=== PATIENT | male | born 1945 | race Caucasian/White ===

== ENCOUNTER 2017-06-30 14:28 | Inpatient (IN) | payer MEDICARE, OTHER, BC ==
[~2017-06-30 14:28] MED LIST: zolPIDEM TARTRATE 5 MG TAB PO
[2017-06-30] MEDS ORDERED: GLUCAGON FOR INJ 1 MG VIAL (J1610) SC (14:30)
[2017-06-30] MEDS ORDERED: NITROGLYCERIN 0.4 MG SUBL TABLET SL (14:30)
[2017-06-30] MEDS ORDERED: DEXTROSE 50% 50 ML SYRINGE IV (14:30)
[2017-06-30] MEDS ORDERED: GLUCOSE 4 GM CHEW TABLET PO (14:30)
[2017-06-30 15:16] LABS: BASO % 0.3 % (0.0-1.0); EOS # 0.2 10^3/uL (0.0-0.50); EOS % 1.9 % (0.0-3.0); HEMATOCRIT 27.2 % (42.0-52.0); HEMOGLOBIN 7.7 g/dl (14.0-18.0); IMMATURE GRANULOCYTE % 0.3 % (0-0); LYMPH # 0.4 10^3/uL (1.5-4.5); LYMPH % 4.9 % (24.0-44.0); MEAN CORPUSCULAR HEMOGLOBIN 22.4 pg (27.0-33.0); MEAN CORPUSCULAR HGB CONC 28.3 g/dl (32.0-36.5); MEAN CORPUSCULAR VOLUME 79.1 fl (80.0-96.0); MONO # 0.7 10^3/uL (0.0-0.8); MONO % 8.3 % (0.0-5.0); NEUTROPHILS # 7.3 10^3/uL (1.8-7.7); NEUTROPHILS % 84.3 % (36.0-66.0); PLATELET COUNT, AUTOMATED 202 10^3/uL (150-450); RED BLOOD COUNT 3.44 10^6/uL (4.30-6.10); RED CELL DISTRIBUTION WIDTH 17.7 % (11.5-14.5); WHITE BLOOD COUNT 8.6 10^3/uL (4.0-10.0)
[2017-06-30 15:45] LABS: ALBUMIN 3.4 GM/DL (3.2-5.2); ALKALINE PHOSPHATASE 140 U/L (45-117); ALT/SGPT 22 U/L (12-78); ANION GAP 7 MEQ/L (8-16); AST/SGOT 7 U/L (7-37); BILIRUBIN,TOTAL 0.3 MG/DL (0.2-1.0); BLOOD UREA NITROGEN 79 MG/DL (7-18); CALCIUM LEVEL 8.4 MG/DL (8.8-10.2); CARBON DIOXIDE LEVEL 19 MEQ/L (21-32); CHLORIDE LEVEL 118 MEQ/L (98-107); CREATININE FOR GFR 2.15 MG/DL (0.70-1.30); GLOMERULAR FILTRATION RATE 32.3 (>42); GLUCOSE, FASTING 116 MG/DL (70-100); MAGNESIUM LEVEL 2.4 MG/DL (1.8-2.4); SODIUM LEVEL 144 MEQ/L (136-145); TOTAL PROTEIN 6.8 GM/DL (6.4-8.2); TROPONIN I < 0.02 NG/ML (< 0.10)
[2017-06-30 15:54] LABS: INR 3.35; PROTHROMBIN TIME 35.6 SECONDS (12.4-14.5)
[2017-06-30 15:58] LABS: POTASSIUM SERUM 5.2 MEQ/L (3.5-5.1)
[2017-06-30] MEDS: ISOSORBIDE DIN. (ISORDIL) 20 MG TAB PO ×2 (16:00→21:55)
[2017-06-30] MEDS: **hydrALAZINE** 50 MG TAB PO ×2 (16:00→21:55)
[2017-06-30] MEDS: HumaLOG INSULIN (NovoLOG) PER UNIT SC ×2 (17:30→21:00)
[2017-06-30 17:32] LABS: BEDSIDE GLUCOSE 119 MG/DL (83-110)
[2017-06-30] MEDS: FUROSEMIDE 100 MG/10 ML VIAL (J1940) IV ×2 (18:42→23:34)
[2017-06-30] MEDS: PANTOPRAZOLE 40MG TAB (PROTONIX) PO (18:42)
[2017-06-30 19:11] LABS: APPEARANCE, URINE HAZY (CLEAR); BACTERIA, URINE AUTO NEGATIVE (NEGATIVE); BILIRUBIN, URINE AUTO NEGATIVE (NEGATIVE); BLOOD, URINE BLOOD 1+ (NEGATIVE); COLOR, URINE YELLOW (YELLOW); GLUCOSE, URINE (UA) AUTO NEGATIVE (NEGATIVE); KETONE, URINE AUTO NEGATIVE (NEGATIVE); LEUKOCYTE ESTERASE, URINE AUTO NEGATIVE (NEGATIVE); MUCUS, URINE SMALL (NEGATIVE); NITRITE, URINE AUTO NEGATIVE (NEGATIVE); PROTEIN, URINE AUTO NEGATIVE (NEGATIVE); RBC, URINE AUTO 12 /HPF (0-3); SPECIFIC GRAVITY URINE AUTO 1.012 (1.002-1.035); SQUAMOUS EPITHELIAL CELL UR AU 0 /HPF (0-6); UROBILINOGEN, URINE AUTO 0.2 mg/dL (0.0-2.0); WBC, URINE AUTO 1 /HPF (0-3)
[2017-06-30] MEDS: DOBUTamine HCL 500,000 MCG in APPROPRIATE DILUENT 1 EA IV (19:58)
[2017-06-30 20:34] LABS: BEDSIDE GLUCOSE 165 MG/DL (83-110)
[2017-06-30] MEDS: CARVedilol 12.5 MG TAB PO (21:55)
[2017-06-30] MEDS: SENOKOT S TAB PO (21:55)
[2017-06-30] MEDS: EUCERIN 120GM CREAM TOP (23:09)
[2017-06-30] MEDS: NYSTATIN 100,000 UNITS/GM TOPICAL PWD 15 GM TOP (23:10)
[2017-06-30] MEDS: DIAPER RELIEF PASTE (DESITIN) 60GM TOP (23:10)
[2017-07-01] MEDS: ACETAMINOPHEN TAB 650MG DOSE (2X325MG) PO ×3 (00:36→20:46)
[2017-07-01 05:06] LABS: HEMATOCRIT 24.1 % (42.0-52.0); MEAN CORPUSCULAR HEMOGLOBIN 22.3 pg (27.0-33.0); MEAN CORPUSCULAR VOLUME 76.8 fl (80.0-96.0); PLATELET COUNT, AUTOMATED 185 10^3/uL (150-450); RED BLOOD COUNT 3.14 10^6/uL (4.30-6.10); RED CELL DISTRIBUTION WIDTH 17.7 % (11.5-14.5); WHITE BLOOD COUNT 6.9 10^3/uL (4.0-10.0)
[2017-07-01 05:17] LABS: INR 3.42; PROTHROMBIN TIME 36.1 SECONDS (12.4-14.5)
[2017-07-01 05:29] LABS: ALBUMIN 2.9 GM/DL (3.2-5.2); ANION GAP 8 MEQ/L (8-16); BLOOD UREA NITROGEN 79 MG/DL (7-18); CALCIUM LEVEL 8.4 MG/DL (8.8-10.2); CARBON DIOXIDE LEVEL 19 MEQ/L (21-32); CHLORIDE LEVEL 119 MEQ/L (98-107); CREATININE FOR GFR 2.06 MG/DL (0.70-1.30); GLUCOSE, FASTING 102 MG/DL (70-100); PHOSPHORUS LEVEL 3.6 MG/DL (2.5-4.9); POTASSIUM SERUM 4.5 MEQ/L (3.5-5.1); SODIUM LEVEL 146 MEQ/L (136-145)
[2017-07-01] MEDS: DIAPER RELIEF PASTE (DESITIN) 60GM TOP (05:59)
[2017-07-01 06:22] LABS: MAGNESIUM LEVEL 2.4 MG/DL (1.8-2.4)
[2017-07-01] MEDS: FUROSEMIDE 100 MG/10 ML VIAL (J1940) IV ×4 (06:26→23:57)
[2017-07-01] MEDS: HumaLOG INSULIN (NovoLOG) PER UNIT SC ×4 (07:30→20:40)
[2017-07-01] MEDS: SENOKOT S TAB PO ×2 (09:00→20:47)
[2017-07-01] MEDS: FEBUXOSTAT 40 MG TABLET (ULORIC) PO (09:20)
[2017-07-01] MEDS: CARVedilol 12.5 MG TAB PO ×2 (09:21→20:47)
[2017-07-01] MEDS: ASPIRIN 81 MG ENTERIC TAB PO (09:21)
[2017-07-01] MEDS: ISOSORBIDE DIN. (ISORDIL) 20 MG TAB PO ×3 (09:21→20:46)
[2017-07-01] MEDS: CALCITRIOL 0.25 MCG CAP (S0169) PO (09:21)
[2017-07-01] MEDS: **hydrALAZINE** 50 MG TAB PO ×3 (09:22→20:45)
[2017-07-01] MEDS: MULTIVITAMINS/MINERALS THERAP 1 TAB PO (09:22)
[2017-07-01] MEDS: SPIRONOLACTONE 25 MG TAB PO (09:22)
[2017-07-01] MEDS: PANTOPRAZOLE 40MG TAB (PROTONIX) PO (09:22)
[2017-07-01] MEDS: NYSTATIN 100,000 UNITS/GM TOPICAL PWD 15 GM TOP ×2 (09:23→20:47)
[2017-07-01] MEDS: EUCERIN 120GM CREAM TOP ×2 (09:24→20:48)
[2017-07-01] MEDS: ATORVASTATIN 20 MG TAB PO (09:27)
[2017-07-01 11:52] LABS: BEDSIDE GLUCOSE 173 MG/DL (83-110)
[2017-07-01] MEDS ORDERED: SLF 3 ML SYR IV (15:15)
[2017-07-01 17:53] LABS: IMMEDIATE SPIN CROSSMATCH 1 2
[2017-07-01 18:33] LABS: BEDSIDE GLUCOSE 216 MG/DL (83-110)
[2017-07-01] MEDS: SLF 3 ML SYR IV (20:48)
[2017-07-01 21:00] LABS: BEDSIDE GLUCOSE 213 MG/DL (83-110)
[2017-07-02 04:38] LABS: HEMATOCRIT 27.6 % (42.0-52.0); HEMOGLOBIN 8.3 g/dl (14.0-18.0); MEAN CORPUSCULAR HEMOGLOBIN 23.7 pg (27.0-33.0); MEAN CORPUSCULAR HGB CONC 30.1 g/dl (32.0-36.5); MEAN CORPUSCULAR VOLUME 78.9 fl (80.0-96.0); PLATELET COUNT, AUTOMATED 162 10^3/uL (150-450); RED CELL DISTRIBUTION WIDTH 17.3 % (11.5-14.5); WHITE BLOOD COUNT 5.8 10^3/uL (4.0-10.0)
[2017-07-02 04:46] LABS: INR 3.16; PROTHROMBIN TIME 33.9 SECONDS (12.4-14.5)
[2017-07-02 04:56] LABS: ALBUMIN 2.8 GM/DL (3.2-5.2); ANION GAP 8 MEQ/L (8-16); BLOOD UREA NITROGEN 88 MG/DL (7-18); CALCIUM LEVEL 8.6 MG/DL (8.8-10.2); CARBON DIOXIDE LEVEL 22 MEQ/L (21-32); CHLORIDE LEVEL 114 MEQ/L (98-107); CREATININE FOR GFR 2.43 MG/DL (0.70-1.30); GLOMERULAR FILTRATION RATE 28.1 (>42); GLUCOSE, FASTING 184 MG/DL (70-100); PHOSPHORUS LEVEL 4.3 MG/DL (2.5-4.9); POTASSIUM SERUM 4.3 MEQ/L (3.5-5.1); SODIUM LEVEL 144 MEQ/L (136-145)
[2017-07-02] MEDS: FUROSEMIDE 100 MG/10 ML VIAL (J1940) IV ×3 (05:52→17:26)
[2017-07-02] MEDS: SLF 3 ML SYR IV ×3 (05:53→20:36)
[2017-07-02 07:24] LABS: BEDSIDE GLUCOSE 170 MG/DL (83-110)
[2017-07-02] MEDS: FEBUXOSTAT 40 MG TABLET (ULORIC) PO (09:20)
[2017-07-02] MEDS: HumaLOG INSULIN (NovoLOG) PER UNIT SC ×4 (09:20→20:35)
[2017-07-02] MEDS: CARVedilol 12.5 MG TAB PO ×2 (09:21→20:34)
[2017-07-02] MEDS: ATORVASTATIN 20 MG TAB PO (09:21)
[2017-07-02] MEDS: **hydrALAZINE** 50 MG TAB PO ×3 (09:21→20:34)
[2017-07-02] MEDS: ISOSORBIDE DIN. (ISORDIL) 20 MG TAB PO ×3 (09:21→20:34)
[2017-07-02] MEDS: ASPIRIN 81 MG ENTERIC TAB PO (09:21)
[2017-07-02] MEDS: NYSTATIN 100,000 UNITS/GM TOPICAL PWD 15 GM TOP ×2 (09:22→20:36)
[2017-07-02] MEDS: MULTIVITAMINS/MINERALS THERAP 1 TAB PO (09:22)
[2017-07-02] MEDS: SPIRONOLACTONE 25 MG TAB PO (09:22)
[2017-07-02] MEDS: PANTOPRAZOLE 40MG TAB (PROTONIX) PO (09:22)
[2017-07-02] MEDS: SENOKOT S TAB PO ×2 (09:22→20:34)
[2017-07-02] MEDS: EUCERIN 120GM CREAM TOP ×2 (09:23→20:35)
[2017-07-02] MEDS: DIAPER RELIEF PASTE (DESITIN) 60GM TOP (09:23)
[2017-07-02 12:19] LABS: BEDSIDE GLUCOSE 267 MG/DL (83-110)
[2017-07-02] MEDS: ACETAMINOPHEN TAB 650MG DOSE (2X325MG) PO (14:23)
[2017-07-02 17:16] LABS: BEDSIDE GLUCOSE 219 MG/DL (83-110)
[2017-07-02 21:28] LABS: BEDSIDE GLUCOSE 188 MG/DL (83-110)
[2017-07-03] MEDS: FUROSEMIDE 100 MG/10 ML VIAL (J1940) IV ×4 (00:10→17:49)
[2017-07-03] MEDS: ACETAMINOPHEN TAB 650MG DOSE (2X325MG) PO (00:11)
[2017-07-03] MEDS: SLF 3 ML SYR IV ×3 (05:07→22:00)
[2017-07-03 05:19] LABS: HEMATOCRIT 28.3 % (42.0-52.0); HEMOGLOBIN 8.5 g/dl (14.0-18.0); MEAN CORPUSCULAR HEMOGLOBIN 23.5 pg (27.0-33.0); MEAN CORPUSCULAR VOLUME 78.4 fl (80.0-96.0); PLATELET COUNT, AUTOMATED 163 10^3/uL (150-450); RED BLOOD COUNT 3.61 10^6/uL (4.30-6.10); RED CELL DISTRIBUTION WIDTH 17.2 % (11.5-14.5); WHITE BLOOD COUNT 5.9 10^3/uL (4.0-10.0)
[2017-07-03 05:36] LABS: ALBUMIN 2.9 GM/DL (3.2-5.2); ANION GAP 8 MEQ/L (8-16); BLOOD UREA NITROGEN 86 MG/DL (7-18); CALCIUM LEVEL 8.6 MG/DL (8.8-10.2); CARBON DIOXIDE LEVEL 25 MEQ/L (21-32); CHLORIDE LEVEL 112 MEQ/L (98-107); CREATININE FOR GFR 2.33 MG/DL (0.70-1.30); GLOMERULAR FILTRATION RATE 29.5 (>42); GLUCOSE, FASTING 198 MG/DL (70-100); PHOSPHORUS LEVEL 3.8 MG/DL (2.5-4.9); SODIUM LEVEL 145 MEQ/L (136-145)
[2017-07-03 05:41] LABS: INR 2.52; PROTHROMBIN TIME 28.2 SECONDS (12.4-14.5)
[2017-07-03] MEDS: HumaLOG INSULIN (NovoLOG) PER UNIT SC ×4 (09:00→21:00)
[2017-07-03] MEDS: NYSTATIN 100,000 UNITS/GM TOPICAL PWD 15 GM TOP ×2 (09:00→21:59)
[2017-07-03] MEDS: FEBUXOSTAT 40 MG TABLET (ULORIC) PO (09:03)
[2017-07-03] MEDS: PANTOPRAZOLE 40MG TAB (PROTONIX) PO (09:03)
[2017-07-03] MEDS: ISOSORBIDE DIN. (ISORDIL) 20 MG TAB PO ×3 (09:03→21:58)
[2017-07-03] MEDS: CARVedilol 12.5 MG TAB PO ×2 (09:03→21:58)
[2017-07-03] MEDS: ATORVASTATIN 20 MG TAB PO (09:04)
[2017-07-03] MEDS: ASPIRIN 81 MG ENTERIC TAB PO (09:04)
[2017-07-03] MEDS: SENOKOT S TAB PO ×2 (09:04→21:58)
[2017-07-03] MEDS: **hydrALAZINE** 50 MG TAB PO ×3 (09:04→21:57)
[2017-07-03] MEDS: SPIRONOLACTONE 25 MG TAB PO (09:04)
[2017-07-03] MEDS: MULTIVITAMINS/MINERALS THERAP 1 TAB PO (09:04)
[2017-07-03] MEDS: EUCERIN 120GM CREAM TOP ×2 (09:05→21:59)
[2017-07-03 12:34] LABS: BEDSIDE GLUCOSE 247 MG/DL (83-110)
[2017-07-03 13:03] LABS: IRON (FE) 28 UG/DL (65-175); PERCENT SATURATION 11.8 % (19.7-50.0); TOTAL IRON BINDING CAPACITY 238 UG/DL (250-450)
[2017-07-03] MEDS: WARFARIN SOD 2.5 MG TAB PO (17:48)
[2017-07-03 17:56] LABS: BEDSIDE GLUCOSE 213 MG/DL (83-110)
[2017-07-03 21:47] LABS: BEDSIDE GLUCOSE 219 MG/DL (83-110)
[2017-07-03] MEDS: LEVEMIR (INSULIN DETEMIR) 1 UNITS/0.01ML SC (21:59)
[2017-07-04] MEDS: ACETAMINOPHEN TAB 650MG DOSE (2X325MG) PO (00:49)
[2017-07-04 05:30] LABS: HEMATOCRIT 30.4 % (42.0-52.0); HEMOGLOBIN 9.1 g/dl (14.0-18.0); MEAN CORPUSCULAR HEMOGLOBIN 23.2 pg (27.0-33.0); MEAN CORPUSCULAR HGB CONC 29.9 g/dl (32.0-36.5); MEAN CORPUSCULAR VOLUME 77.6 fl (80.0-96.0); PLATELET COUNT, AUTOMATED 194 10^3/uL (150-450); RED BLOOD COUNT 3.92 10^6/uL (4.30-6.10); RED CELL DISTRIBUTION WIDTH 17.5 % (11.5-14.5); WHITE BLOOD COUNT 7.1 10^3/uL (4.0-10.0)
[2017-07-04 05:41] LABS: INR 1.96
[2017-07-04 05:58] LABS: ANION GAP 7 MEQ/L (8-16); BLOOD UREA NITROGEN 90 MG/DL (7-18); CALCIUM LEVEL 8.6 MG/DL (8.8-10.2); CARBON DIOXIDE LEVEL 28 MEQ/L (21-32); CHLORIDE LEVEL 110 MEQ/L (98-107); CREATININE FOR GFR 2.28 MG/DL (0.70-1.30); GLOMERULAR FILTRATION RATE 30.2 (>42); GLUCOSE, FASTING 179 MG/DL (70-100); PHOSPHORUS LEVEL 3.5 MG/DL (2.5-4.9); SODIUM LEVEL 145 MEQ/L (136-145)
[2017-07-04] MEDS: SLF 3 ML SYR IV ×2 (06:36→12:51)
[2017-07-04] MEDS: FUROSEMIDE 100 MG/10 ML VIAL (J1940) IV ×4 (06:36→17:11)
[2017-07-04] MEDS: FEBUXOSTAT 40 MG TABLET (ULORIC) PO (09:12)
[2017-07-04] MEDS: CARVedilol 12.5 MG TAB PO ×2 (09:13→20:32)
[2017-07-04] MEDS: **hydrALAZINE** 50 MG TAB PO ×2 (09:15→20:33)
[2017-07-04] MEDS: ISOSORBIDE DIN. (ISORDIL) 20 MG TAB PO ×3 (09:16→20:33)
[2017-07-04] MEDS: CALCITRIOL 0.25 MCG CAP (S0169) PO (09:16)
[2017-07-04] MEDS: PANTOPRAZOLE 40MG TAB (PROTONIX) PO (09:16)
[2017-07-04] MEDS: MULTIVITAMINS/MINERALS THERAP 1 TAB PO (09:17)
[2017-07-04] MEDS: SPIRONOLACTONE 25 MG TAB PO (09:17)
[2017-07-04] MEDS: ASPIRIN 81 MG ENTERIC TAB PO (09:17)
[2017-07-04] MEDS: ATORVASTATIN 20 MG TAB PO (09:17)
[2017-07-04] MEDS: SENOKOT S TAB PO ×2 (09:17→20:32)
[2017-07-04] MEDS: LEVEMIR (INSULIN DETEMIR) 1 UNITS/0.01ML SC ×2 (09:18→20:31)
[2017-07-04] MEDS: HumaLOG INSULIN (NovoLOG) PER UNIT SC ×4 (09:19→20:31)
[2017-07-04] MEDS: DARBEPOETIN 100 MCG/0.5 ML *NON-DIALYSIS* SYRINGE (J0881) SC (09:20)
[2017-07-04] MEDS: NYSTATIN 100,000 UNITS/GM TOPICAL PWD 15 GM TOP ×2 (09:21→20:34)
[2017-07-04] MEDS: EUCERIN 120GM CREAM TOP ×2 (09:22→20:35)
[2017-07-04] MEDS ORDERED: IRON SUCROSE 100MG 5ML VIAL (J1756 PER 1MG) IV (09:30)
[2017-07-04 11:50] LABS: BEDSIDE GLUCOSE 241 MG/DL (83-110)
[2017-07-04] MEDS: IRON SUCROSE 200 MG in NS 250 ML IV (12:51)
[2017-07-04] MEDS: DIAPER RELIEF PASTE (DESITIN) 60GM TOP (13:32)
[2017-07-04 16:54] LABS: BEDSIDE GLUCOSE 267 MG/DL (83-110)
[2017-07-04] MEDS: WARFARIN SOD 2.5 MG TAB PO (17:05)
[2017-07-04 20:38] LABS: BEDSIDE GLUCOSE 342 MG/DL (83-110)
[2017-07-05 03:31] LABS: HEMOGLOBIN 9.6 g/dl (14.0-18.0); MEAN CORPUSCULAR HEMOGLOBIN 23.8 pg (27.0-33.0); MEAN CORPUSCULAR VOLUME 79.4 fl (80.0-96.0); PLATELET COUNT, AUTOMATED 203 10^3/uL (150-450); RED BLOOD COUNT 4.03 10^6/uL (4.30-6.10); RED CELL DISTRIBUTION WIDTH 17.3 % (11.5-14.5); WHITE BLOOD COUNT 7.8 10^3/uL (4.0-10.0)
[2017-07-05 03:42] LABS: INR 1.78; PROTHROMBIN TIME 21.3 SECONDS (12.4-14.5)
[2017-07-05 03:47] LABS: ALBUMIN 3.2 GM/DL (3.2-5.2); ANION GAP 8 MEQ/L (8-16); BLOOD UREA NITROGEN 100 MG/DL (7-18); CALCIUM LEVEL 8.5 MG/DL (8.8-10.2); CARBON DIOXIDE LEVEL 27 MEQ/L (21-32); CHLORIDE LEVEL 108 MEQ/L (98-107); CREATININE FOR GFR 2.43 MG/DL (0.70-1.30); GLOMERULAR FILTRATION RATE 28.1 (>42); GLUCOSE, FASTING 166 MG/DL (70-100); PHOSPHORUS LEVEL 4.1 MG/DL (2.5-4.9); POTASSIUM SERUM 3.9 MEQ/L (3.5-5.1); SODIUM LEVEL 143 MEQ/L (136-145)
[2017-07-05] MEDS: HumaLOG INSULIN (NovoLOG) PER UNIT SC ×4 (09:34→20:02)
[2017-07-05] MEDS: ASPIRIN 81 MG ENTERIC TAB PO (09:35)
[2017-07-05] MEDS: TORSEMIDE 20 MG TAB PO (09:35)
[2017-07-05] MEDS: ATORVASTATIN 20 MG TAB PO (09:35)
[2017-07-05] MEDS: ISOSORBIDE DIN. (ISORDIL) 20 MG TAB PO ×3 (09:35→20:44)
[2017-07-05] MEDS: SENOKOT S TAB PO ×3 (09:36→20:44)
[2017-07-05] MEDS: MULTIVITAMINS/MINERALS THERAP 1 TAB PO (09:36)
[2017-07-05] MEDS: SPIRONOLACTONE 25 MG TAB PO (09:36)
[2017-07-05] MEDS: **hydrALAZINE** 50 MG TAB PO ×2 (09:36→20:44)
[2017-07-05] MEDS: PANTOPRAZOLE 40MG TAB (PROTONIX) PO (09:36)
[2017-07-05] MEDS: CARVedilol 12.5 MG TAB PO ×2 (09:36→20:44)
[2017-07-05] MEDS: FEBUXOSTAT 40 MG TABLET (ULORIC) PO (09:37)
[2017-07-05] MEDS: EUCERIN 120GM CREAM TOP ×2 (09:37→20:45)
[2017-07-05] MEDS: LEVEMIR (INSULIN DETEMIR) 1 UNITS/0.01ML SC ×2 (09:38→20:43)
[2017-07-05] MEDS: NYSTATIN 100,000 UNITS/GM TOPICAL PWD 15 GM TOP ×2 (09:38→20:46)
[2017-07-05 11:50] LABS: BEDSIDE GLUCOSE 270 MG/DL (83-110)
[2017-07-05] MEDS: WARFARIN SOD 2.5 MG TAB PO (16:43)
[2017-07-05 17:01] LABS: BEDSIDE GLUCOSE 235 MG/DL (83-110)
[2017-07-05 20:07] LABS: BEDSIDE GLUCOSE 218 MG/DL (83-110)
[2017-07-06 05:24] LABS: HEMATOCRIT 32.9 % (42.0-52.0); HEMOGLOBIN 9.8 g/dl (14.0-18.0); MEAN CORPUSCULAR HEMOGLOBIN 23.3 pg (27.0-33.0); MEAN CORPUSCULAR HGB CONC 29.8 g/dl (32.0-36.5); MEAN CORPUSCULAR VOLUME 78.3 fl (80.0-96.0); PLATELET COUNT, AUTOMATED 242 10^3/uL (150-450); RED CELL DISTRIBUTION WIDTH 17.5 % (11.5-14.5); WHITE BLOOD COUNT 6.9 10^3/uL (4.0-10.0)
[2017-07-06 05:33] LABS: INR 1.78; PROTHROMBIN TIME 21.2 SECONDS (12.4-14.5)
[2017-07-06 05:51] LABS: ALBUMIN 3.2 GM/DL (3.2-5.2); ANION GAP 9 MEQ/L (8-16); BLOOD UREA NITROGEN 119 MG/DL (7-18); CALCIUM LEVEL 8.8 MG/DL (8.8-10.2); CARBON DIOXIDE LEVEL 27 MEQ/L (21-32); CHLORIDE LEVEL 107 MEQ/L (98-107); CREATININE FOR GFR 3.03 MG/DL (0.70-1.30); GLOMERULAR FILTRATION RATE 21.8 (>42); GLUCOSE, FASTING 109 MG/DL (70-100); PHOSPHORUS LEVEL 4.3 MG/DL (2.5-4.9); POTASSIUM SERUM 3.9 MEQ/L (3.5-5.1); SODIUM LEVEL 143 MEQ/L (136-145)
[2017-07-06] MEDS: SENOKOT S TAB PO ×2 (07:46→21:43)
[2017-07-06] MEDS: HumaLOG INSULIN (NovoLOG) PER UNIT SC ×4 (09:07→21:00)
[2017-07-06] MEDS: ISOSORBIDE DIN. (ISORDIL) 20 MG TAB PO ×3 (09:59→21:40)
[2017-07-06] MEDS: FEBUXOSTAT 40 MG TABLET (ULORIC) PO (09:59)
[2017-07-06] MEDS: LEVEMIR (INSULIN DETEMIR) 1 UNITS/0.01ML SC ×2 (09:59→21:39)
[2017-07-06] MEDS: CARVedilol 12.5 MG TAB PO ×2 (10:00→21:41)
[2017-07-06] MEDS: TORSEMIDE 20 MG TAB PO (10:00)
[2017-07-06] MEDS: ATORVASTATIN 20 MG TAB PO (10:00)
[2017-07-06] MEDS: CALCITRIOL 0.25 MCG CAP (S0169) PO (10:00)
[2017-07-06] MEDS: ASPIRIN 81 MG ENTERIC TAB PO (10:01)
[2017-07-06] MEDS: MULTIVITAMINS/MINERALS THERAP 1 TAB PO (10:01)
[2017-07-06] MEDS: **hydrALAZINE** 50 MG TAB PO ×2 (10:01→21:40)
[2017-07-06] MEDS: PANTOPRAZOLE 40MG TAB (PROTONIX) PO (10:01)
[2017-07-06] MEDS: SPIRONOLACTONE 25 MG TAB PO (10:02)
[2017-07-06] MEDS: NYSTATIN 100,000 UNITS/GM TOPICAL PWD 15 GM TOP ×2 (10:23→21:44)
[2017-07-06 12:53] LABS: BEDSIDE GLUCOSE 214 MG/DL (83-110)
[2017-07-06] MEDS: EUCERIN 120GM CREAM TOP ×2 (13:05→21:44)
[2017-07-06] MEDS ORDERED: IRON SUCROSE 100MG 5ML VIAL (J1756 PER 1MG) IV (15:30)
[2017-07-06] MEDS: IRON SUCROSE 200 MG in NS 250 ML IV (15:45)
[2017-07-06 16:54] LABS: BEDSIDE GLUCOSE 184 MG/DL (83-110)
[2017-07-06] MEDS: WARFARIN SOD 2.5 MG TAB PO (17:09)
[2017-07-06 22:07] LABS: BEDSIDE GLUCOSE 221 MG/DL (83-110)
[2017-07-07] MEDS: ACETAMINOPHEN TAB 650MG DOSE (2X325MG) PO ×2 (01:51→09:29)
[2017-07-07 05:31] LABS: HEMATOCRIT 36.2 % (42.0-52.0); HEMOGLOBIN 10.8 g/dl (14.0-18.0); MEAN CORPUSCULAR HEMOGLOBIN 23.7 pg (27.0-33.0); MEAN CORPUSCULAR HGB CONC 29.8 g/dl (32.0-36.5); MEAN CORPUSCULAR VOLUME 79.4 fl (80.0-96.0); PLATELET COUNT, AUTOMATED 254 10^3/uL (150-450); RED BLOOD COUNT 4.56 10^6/uL (4.30-6.10); RED CELL DISTRIBUTION WIDTH 17.9 % (11.5-14.5); WHITE BLOOD COUNT 7.4 10^3/uL (4.0-10.0)
[2017-07-07 05:39] LABS: INR 1.64; PROTHROMBIN TIME 19.9 SECONDS (12.4-14.5)
[2017-07-07 05:49] LABS: ALBUMIN 3.5 GM/DL (3.2-5.2); ANION GAP 8 MEQ/L (8-16); BLOOD UREA NITROGEN 123 MG/DL (7-18); CALCIUM LEVEL 9.1 MG/DL (8.8-10.2); CARBON DIOXIDE LEVEL 26 MEQ/L (21-32); CHLORIDE LEVEL 107 MEQ/L (98-107); CREATININE FOR GFR 3.07 MG/DL (0.70-1.30); GLOMERULAR FILTRATION RATE 21.4 (>42); GLUCOSE, FASTING 138 MG/DL (70-100); PHOSPHORUS LEVEL 4.7 MG/DL (2.5-4.9); POTASSIUM SERUM 4.3 MEQ/L (3.5-5.1); SODIUM LEVEL 141 MEQ/L (136-145)
[2017-07-07] MEDS: CARVedilol 12.5 MG TAB PO ×2 (09:29→21:34)
[2017-07-07] MEDS: HumaLOG INSULIN (NovoLOG) PER UNIT SC ×4 (09:29→20:37)
[2017-07-07] MEDS: **hydrALAZINE** 50 MG TAB PO ×2 (09:30→21:33)
[2017-07-07] MEDS: ATORVASTATIN 20 MG TAB PO (09:30)
[2017-07-07] MEDS: ISOSORBIDE DIN. (ISORDIL) 20 MG TAB PO ×3 (09:30→21:35)
[2017-07-07] MEDS: ASPIRIN 81 MG ENTERIC TAB PO (09:30)
[2017-07-07] MEDS: PANTOPRAZOLE 40MG TAB (PROTONIX) PO (09:31)
[2017-07-07] MEDS: MULTIVITAMINS/MINERALS THERAP 1 TAB PO (09:31)
[2017-07-07] MEDS: SENOKOT S TAB PO ×2 (09:31→21:00)
[2017-07-07] MEDS: NYSTATIN 100,000 UNITS/GM TOPICAL PWD 15 GM TOP ×2 (09:32→21:36)
[2017-07-07] MEDS: FEBUXOSTAT 40 MG TABLET (ULORIC) PO (09:32)
[2017-07-07] MEDS: EUCERIN 120GM CREAM TOP ×2 (09:32→21:36)
[2017-07-07] MEDS: LEVEMIR (INSULIN DETEMIR) 1 UNITS/0.01ML SC ×2 (09:32→21:35)
[2017-07-07 12:22] LABS: BEDSIDE GLUCOSE 192 MG/DL (83-110)
[2017-07-07 17:08] LABS: BEDSIDE GLUCOSE 212 MG/DL (83-110)
[2017-07-07] MEDS: WARFARIN SOD 4 MG TAB PO (17:14)
[2017-07-07 20:42] LABS: BEDSIDE GLUCOSE 250 MG/DL (83-110)
[2017-07-08] MEDS: **hydrALAZINE** 50 MG TAB PO ×3 (08:32→21:17)
[2017-07-08] MEDS: ASPIRIN 81 MG ENTERIC TAB PO (08:32)
[2017-07-08] MEDS: CARVedilol 12.5 MG TAB PO ×2 (08:33→21:18)
[2017-07-08] MEDS: SENOKOT S TAB PO ×2 (08:33→21:00)
[2017-07-08] MEDS: CALCITRIOL 0.25 MCG CAP (S0169) PO (08:33)
[2017-07-08] MEDS: MULTIVITAMINS/MINERALS THERAP 1 TAB PO (08:34)
[2017-07-08] MEDS: ISOSORBIDE DIN. (ISORDIL) 20 MG TAB PO ×3 (08:34→21:18)
[2017-07-08] MEDS: ATORVASTATIN 20 MG TAB PO (08:34)
[2017-07-08] MEDS: LEVEMIR (INSULIN DETEMIR) 1 UNITS/0.01ML SC ×2 (08:34→21:19)
[2017-07-08] MEDS: PANTOPRAZOLE 40MG TAB (PROTONIX) PO (08:34)
[2017-07-08] MEDS: HumaLOG INSULIN (NovoLOG) PER UNIT SC ×4 (08:35→21:00)
[2017-07-08] MEDS: EUCERIN 120GM CREAM TOP ×2 (08:35→21:16)
[2017-07-08] MEDS: NYSTATIN 100,000 UNITS/GM TOPICAL PWD 15 GM TOP ×2 (08:36→21:17)
[2017-07-08 09:53] LABS: HEMATOCRIT 35.6 % (42.0-52.0); HEMOGLOBIN 10.6 g/dl (14.0-18.0); MEAN CORPUSCULAR HEMOGLOBIN 23.9 pg (27.0-33.0); MEAN CORPUSCULAR HGB CONC 29.8 g/dl (32.0-36.5); MEAN CORPUSCULAR VOLUME 80.4 fl (80.0-96.0); PLATELET COUNT, AUTOMATED 224 10^3/uL (150-450); RED BLOOD COUNT 4.43 10^6/uL (4.30-6.10); RED CELL DISTRIBUTION WIDTH 17.7 % (11.5-14.5); WHITE BLOOD COUNT 7.2 10^3/uL (4.0-10.0)
[2017-07-08 10:04] LABS: ANION GAP 6 MEQ/L (8-16); BLOOD UREA NITROGEN 117 MG/DL (7-18); CALCIUM LEVEL 8.6 MG/DL (8.8-10.2); CARBON DIOXIDE LEVEL 27 MEQ/L (21-32); CHLORIDE LEVEL 110 MEQ/L (98-107); CREATININE FOR GFR 2.58 MG/DL (0.70-1.30); GLOMERULAR FILTRATION RATE 26.2 (>42); GLUCOSE, FASTING 162 MG/DL (70-100); POTASSIUM SERUM 4.5 MEQ/L (3.5-5.1); SODIUM LEVEL 143 MEQ/L (136-145)
[2017-07-08] MEDS: FEBUXOSTAT 40 MG TABLET (ULORIC) PO (10:26)
[2017-07-08 11:30] LABS: BEDSIDE GLUCOSE 193 MG/DL (83-110)
[2017-07-08] MEDS: FERROUS GLUCONATE 324 MG TAB PO (13:47)
[2017-07-08 16:45] LABS: BEDSIDE GLUCOSE 208 MG/DL (83-110)
[2017-07-08] MEDS: WARFARIN SOD 4 MG TAB PO (16:53)
[2017-07-08 21:12] LABS: BEDSIDE GLUCOSE 233 MG/DL (83-110)
[2017-07-09 04:38] LABS: HEMATOCRIT 31.2 % (42.0-52.0); HEMOGLOBIN 9.2 g/dl (14.0-18.0); MEAN CORPUSCULAR HEMOGLOBIN 23.7 pg (27.0-33.0); MEAN CORPUSCULAR HGB CONC 29.5 g/dl (32.0-36.5); MEAN CORPUSCULAR VOLUME 80.4 fl (80.0-96.0); PLATELET COUNT, AUTOMATED 136 10^3/uL (150-450); RED BLOOD COUNT 3.88 10^6/uL (4.30-6.10); RED CELL DISTRIBUTION WIDTH 17.7 % (11.5-14.5); WHITE BLOOD COUNT 5.7 10^3/uL (4.0-10.0)
[2017-07-09 05:08] LABS: ALBUMIN 3.1 GM/DL (3.2-5.2); ALBUMIN/GLOBULIN RATIO 0.86 (1.00-1.93); ALKALINE PHOSPHATASE 109 U/L (45-117); ALT/SGPT 23 U/L (12-78); ANION GAP 8 MEQ/L (8-16); AST/SGOT 9 U/L (7-37); BILIRUBIN,TOTAL 0.3 MG/DL (0.2-1.0); BLOOD UREA NITROGEN 119 MG/DL (7-18); CALCIUM LEVEL 8.3 MG/DL (8.8-10.2); CARBON DIOXIDE LEVEL 24 MEQ/L (21-32); CHLORIDE LEVEL 111 MEQ/L (98-107); CREATININE FOR GFR 2.17 MG/DL (0.70-1.30); GLUCOSE, FASTING 138 MG/DL (70-100); POTASSIUM SERUM 4.3 MEQ/L (3.5-5.1); SODIUM LEVEL 143 MEQ/L (136-145); TOTAL PROTEIN 6.7 GM/DL (6.4-8.2)
[2017-07-09] MEDS: SENOKOT S TAB PO ×2 (09:00→09:02)
[2017-07-09] MEDS: FEBUXOSTAT 40 MG TABLET (ULORIC) PO (09:01)
[2017-07-09] MEDS: MULTIVITAMINS/MINERALS THERAP 1 TAB PO (09:01)
[2017-07-09] MEDS: ATORVASTATIN 20 MG TAB PO (09:01)
[2017-07-09] MEDS: ASPIRIN 81 MG ENTERIC TAB PO (09:02)
[2017-07-09] MEDS: FERROUS GLUCONATE 324 MG TAB PO (09:02)
[2017-07-09] MEDS: PANTOPRAZOLE 40MG TAB (PROTONIX) PO (09:02)
[2017-07-09] MEDS: ISOSORBIDE DIN. (ISORDIL) 20 MG TAB PO (09:04)
[2017-07-09] MEDS: **hydrALAZINE** 50 MG TAB PO (09:05)
[2017-07-09] MEDS: CARVedilol 12.5 MG TAB PO (09:05)
[2017-07-09] MEDS: HumaLOG INSULIN (NovoLOG) PER UNIT SC (09:06)
[2017-07-09] MEDS: LEVEMIR (INSULIN DETEMIR) 1 UNITS/0.01ML SC (09:07)
[2017-07-09] MEDS: NYSTATIN 100,000 UNITS/GM TOPICAL PWD 15 GM TOP (09:07)
[2017-07-09] MEDS: EUCERIN 120GM CREAM TOP (09:08)
[2017-07-09 12:03] LABS: BEDSIDE GLUCOSE 219 MG/DL (83-110)
== END 2017-07-09 13:09 | disposition home or self-care (01) | DRG 291 ==
LOC: M ED INP 14:28 → M PCU 14:32
PROC: 30233N1 Transfusion of Nonautologous Red Blood Cells into Peripheral Vein, Percutaneous Approach (ICD-10-PCS; principal; 2017-07-01)
DX: I13.0 Hypertensive heart and chronic kidney disease with heart failure and stage 1 through stage 4 chronic kidney disease, or unspecified chronic kidney disease (principal); I50.43 Acute on chronic combined systolic (congestive) and diastolic (congestive) heart failure; N17.9 Acute kidney failure, unspecified; E87.0 Hyperosmolality and hypernatremia; I47.2 Ventricular tachycardia; K92.2 Gastrointestinal hemorrhage, unspecified; N25.81 Secondary hyperparathyroidism of renal origin; I48.2 Chronic atrial fibrillation; Z95.810 Presence of automatic (implantable) cardiac defibrillator; I44.7 Left bundle-branch block, unspecified; I27.20 Pulmonary hypertension, unspecified; I08.0 Rheumatic disorders of both mitral and aortic valves; I25.10 Atherosclerotic heart disease of native coronary artery without angina pectoris; D50.0 Iron deficiency anemia secondary to blood loss (chronic); Z87.891 Personal history of nicotine dependence; E66.9 Obesity, unspecified; E78.00 Pure hypercholesterolemia, unspecified; Z85.038 Personal history of other malignant neoplasm of large intestine; Z88.2 Allergy status to sulfonamides; Z88.5 Allergy status to narcotic agent; Z79.4 Long term (current) use of insulin; N18.3 Chronic kidney disease, stage 3 (moderate); I73.9 Peripheral vascular disease, unspecified; M10.9 Gout, unspecified; E78.5 Hyperlipidemia, unspecified; D63.1 Anemia in chronic kidney disease

== ENCOUNTER → 2018-01-12 | Outpatient (CLI) | payer BC, OTHER | LOC: M RAD 10:23 | DX: I87.313 Chronic venous hypertension (idiopathic) with ulcer of bilateral lower extremity (principal); L97.919 Non-pressure chronic ulcer of unspecified part of right lower leg with unspecified severity; L97.929 Non-pressure chronic ulcer of unspecified part of left lower leg with unspecified severity | CPT/HCPCS: 93970 ==

== ENCOUNTER → 2018-01-27 | Outpatient (CLI) | payer MEDICARE, OTHER | LOC: M CLY 10:41 | DX: M19.011 Primary osteoarthritis, right shoulder (principal); M25.711 Osteophyte, right shoulder; M25.511 Pain in right shoulder | CPT/HCPCS: 73030 ==

== ENCOUNTER 2018-02-22 11:16 | Inpatient (IN) | payer BC, OTHER, MEDICARE ==
[~2018-02-22 11:16] MED LIST changes: +DEXTROSE 50% 50 ML SYRINGE IV; +GLUCAGON FOR INJ 1 MG VIAL (J1610) SC; +GLUCOSE 4 GM CHEW TABLET PO; -zolPIDEM TARTRATE 5 MG TAB PO
[2018-02-22] MEDS ORDERED: NITROGLYCERIN 0.4 MG SUBL TABLET SL (11:30)
[2018-02-22] MEDS: NITROGLYCERIN 2% OINT 1 GM *U/D* PKT TOP ×4 (12:11→20:00)
[2018-02-22] MEDS: DOBUTamine HCL 500,000 MCG in APPROPRIATE DILUENT 1 EA IV (12:11)
[2018-02-22] MEDS: FUROSEMIDE 100 MG/10 ML VIAL (J1940) IV ×2 (12:11→17:34)
[2018-02-22 12:20] LABS: BASO % 0.1 % (0.0-1.0); HEMATOCRIT 36.3 % (42.0-52.0); HEMOGLOBIN 10.8 g/dl (13.5-17.5); LYMPH # 0.3 10^3/uL (1.5-4.5); LYMPH % 1.4 % (24.0-44.0); MEAN CORPUSCULAR HEMOGLOBIN 23.2 pg (27.0-33.0); MEAN CORPUSCULAR HGB CONC 29.8 g/dl (32.0-36.5); MEAN CORPUSCULAR VOLUME 77.9 fl (80.0-96.0); MONO % 4.8 % (0.0-5.0); NEUTROPHILS # 19.9 10^3/uL (1.8-7.7); NEUTROPHILS % 92.7 % (36.0-66.0); PLATELET COUNT, AUTOMATED 138 10^3/uL (150-450); RED BLOOD COUNT 4.66 10^6/uL (4.30-6.10); RED CELL DISTRIBUTION WIDTH 16.9 % (11.5-14.5); WHITE BLOOD COUNT 21.5 10^3/uL (4.0-10.0)
[2018-02-22 12:21] LABS: BEDSIDE GLUCOSE 258 MG/DL (83-110)
[2018-02-22] MEDS: HumaLOG INSULIN (NovoLOG) PER UNIT SC ×3 (12:25→21:00)
[2018-02-22] MEDS: PANTOPRAZOLE 40MG INJ (PROTONIX) (C9113) IV (12:25)
[2018-02-22] MEDS: ONDANSETRON 4MG/2ML VIAL (J2405) IV ×2 (12:25→17:33)
[2018-02-22 12:34] LABS: INR 4.75; PROTHROMBIN TIME 45.8 SECONDS (12.1-14.4)
[2018-02-22 13:35] LABS: ALBUMIN 2.5 GM/DL (3.2-5.2); ALBUMIN/GLOBULIN RATIO 0.69 (1.00-1.93); ALKALINE PHOSPHATASE 149 U/L (45-117); ALT/SGPT 36 U/L (12-78); AMYLASE 33 U/L (25-115); ANION GAP 13 MEQ/L (8-16); AST/SGOT 29 U/L (7-37); BILIRUBIN,TOTAL 0.9 MG/DL (0.2-1.0); BLOOD UREA NITROGEN 83 MG/DL (7-18); CALCIUM LEVEL 8.4 MG/DL (8.8-10.2); CARBON DIOXIDE LEVEL 23 MEQ/L (21-32); CHLORIDE LEVEL 104 MEQ/L (98-107); CREATININE FOR GFR 2.87 MG/DL (0.70-1.30); GLOMERULAR FILTRATION RATE 23.1 (>42); GLUCOSE, FASTING 270 MG/DL (70-100); LIPASE 241 U/L (73-393); MAGNESIUM LEVEL 2.3 MG/DL (1.8-2.4); SODIUM LEVEL 140 MEQ/L (136-145); TOTAL PROTEIN 6.1 GM/DL (6.4-8.2); TROPONIN I 0.08 NG/ML (< 0.10)
[2018-02-22] MEDS ORDERED: PHYTONADIONE 10MG/ML INJECTION (J3430) As Ordered (13:57)
[2018-02-22] MEDS: PHYTONADIONE INJection 5 MG in NS 50 ML IV (14:07)
[2018-02-22] MEDS: cefTRIAXone SOD 1 GM in D5W MINI-BAG PLUS 50 ML IV (15:58)
[2018-02-22 17:26] LABS: BEDSIDE GLUCOSE 230 MG/DL (83-110)
[2018-02-22 19:46] LABS: TROPONIN I 0.07 NG/ML (< 0.10)
[2018-02-22] MEDS: SENOKOT S TAB PO (20:20)
[2018-02-22 20:46] LABS: BEDSIDE GLUCOSE 211 MG/DL (83-110)
[2018-02-22] MEDS: ACETAMINOPHEN TAB 650MG DOSE (2X325MG) PO (21:53)
[2018-02-23] MEDS: NITROGLYCERIN 2% OINT 1 GM *U/D* PKT TOP ×14 (00:33→23:40)
[2018-02-23] MEDS: FUROSEMIDE 100 MG/10 ML VIAL (J1940) IV ×2 (00:35→05:28)
[2018-02-23 05:16] LABS: HEMATOCRIT 31.2 % (42.0-52.0); HEMOGLOBIN 9.5 g/dl (13.5-17.5); MEAN CORPUSCULAR HEMOGLOBIN 23.3 pg (27.0-33.0); MEAN CORPUSCULAR HGB CONC 30.4 g/dl (32.0-36.5); MEAN CORPUSCULAR VOLUME 76.7 fl (80.0-96.0); PLATELET COUNT, AUTOMATED 118 10^3/uL (150-450); RED BLOOD COUNT 4.07 10^6/uL (4.30-6.10); RED CELL DISTRIBUTION WIDTH 16.6 % (11.5-14.5); WHITE BLOOD COUNT 16.7 10^3/uL (4.0-10.0)
[2018-02-23 05:27] LABS: INR 1.53; PROTHROMBIN TIME 18.7 SECONDS (12.1-14.4)
[2018-02-23 05:36] LABS: ALBUMIN 2.1 GM/DL (3.2-5.2); ANION GAP 10 MEQ/L (8-16); BLOOD UREA NITROGEN 94 MG/DL (7-18); CALCIUM LEVEL 8.4 MG/DL (8.8-10.2); CARBON DIOXIDE LEVEL 24 MEQ/L (21-32); CHLORIDE LEVEL 105 MEQ/L (98-107); CREATININE FOR GFR 3.07 MG/DL (0.70-1.30); GLOMERULAR FILTRATION RATE 21.4 (>42); GLUCOSE, FASTING 199 MG/DL (70-100); PHOSPHORUS LEVEL 4.5 MG/DL (2.5-4.9); POTASSIUM SERUM 4.2 MEQ/L (3.5-5.1); SODIUM LEVEL 139 MEQ/L (136-145); TROPONIN I 0.06 NG/ML (< 0.10)
[2018-02-23] MEDS: PANTOPRAZOLE 40MG INJ (PROTONIX) (C9113) IV (09:21)
[2018-02-23] MEDS: SENOKOT S TAB PO ×2 (09:21→21:22)
[2018-02-23] MEDS: ENOXAPARIN 40 MG/0.4 ML SYRINGE (J1650) SC (09:21)
[2018-02-23] MEDS: CARVedilol 6.25 MG TAB PO ×4 (09:21→23:39)
[2018-02-23] MEDS: MORPHINE 4 MG/ML 1ML VIAL/SYRINGE (J2270) IV (09:32)
[2018-02-23] MEDS: HumaLOG INSULIN (NovoLOG) PER UNIT SC ×4 (09:32→21:00)
[2018-02-23 11:57] LABS: BEDSIDE GLUCOSE 226 MG/DL (83-110)
[2018-02-23] MEDS: cefTRIAXone SOD 1 GM in D5W MINI-BAG PLUS 50 ML IV ×2 (12:45→23:39)
[2018-02-23] MEDS: DOBUTamine HCL 500,000 MCG in APPROPRIATE DILUENT 1 EA IV (12:45)
[2018-02-23] MEDS ORDERED: LIDOCAINE 1% MDV 20ML VIAL As Ordered (14:51)
[2018-02-23 16:18] LABS: BEDSIDE GLUCOSE 192 MG/DL (83-110)
[2018-02-23] MEDS: **hydrALAZINE HCL** 25 MG TAB PO ×2 (16:29→21:23)
[2018-02-23] MEDS: ISOSORBIDE DIN. (ISORDIL) 30 MG TAB PO ×2 (16:31→21:23)
[2018-02-23 20:28] LABS: BEDSIDE GLUCOSE 160 MG/DL (83-110)
[2018-02-24] MEDS: NITROGLYCERIN 2% OINT 1 GM *U/D* PKT TOP ×11 (03:57→20:08)
[2018-02-24 05:11] LABS: HEMATOCRIT 30.4 % (42.0-52.0); MEAN CORPUSCULAR HEMOGLOBIN 22.8 pg (27.0-33.0); MEAN CORPUSCULAR HGB CONC 29.6 g/dl (32.0-36.5); PLATELET COUNT, AUTOMATED 114 10^3/uL (150-450); RED BLOOD COUNT 3.95 10^6/uL (4.30-6.10); RED CELL DISTRIBUTION WIDTH 16.6 % (11.5-14.5); WHITE BLOOD COUNT 7.8 10^3/uL (4.0-10.0)
[2018-02-24 05:23] LABS: INR 1.26
[2018-02-24 05:36] LABS: ALBUMIN/GLOBULIN RATIO 0.53 (1.00-1.93); ALKALINE PHOSPHATASE 140 U/L (45-117); ALT/SGPT 62 U/L (12-78); ANION GAP 10 MEQ/L (8-16); AST/SGOT 53 U/L (7-37); BILIRUBIN,TOTAL 0.4 MG/DL (0.2-1.0); BLOOD UREA NITROGEN 96 MG/DL (7-18); CALCIUM LEVEL 8.1 MG/DL (8.8-10.2); CARBON DIOXIDE LEVEL 25 MEQ/L (21-32); CHLORIDE LEVEL 106 MEQ/L (98-107); CREATININE FOR GFR 2.79 MG/DL (0.70-1.30); GLOMERULAR FILTRATION RATE 23.9 (>42); GLUCOSE, FASTING 161 MG/DL (70-100); SODIUM LEVEL 141 MEQ/L (136-145); TOTAL PROTEIN 5.8 GM/DL (6.4-8.2)
[2018-02-24] MEDS: CARVedilol 6.25 MG TAB PO (06:34)
[2018-02-24] MEDS: PANTOPRAZOLE 40MG INJ (PROTONIX) (C9113) IV (08:35)
[2018-02-24] MEDS: SPIRONOLACTONE 12.5MG PER 1/2 TABLET PO (08:36)
[2018-02-24] MEDS: APIXABAN 2.5 MG TAB (ELIQUIS) PO ×2 (08:36→20:05)
[2018-02-24] MEDS: ISOSORBIDE DIN. (ISORDIL) 30 MG TAB PO ×3 (08:36→20:06)
[2018-02-24] MEDS: SENOKOT S TAB PO ×2 (08:37→20:06)
[2018-02-24] MEDS: **hydrALAZINE HCL** 25 MG TAB PO ×3 (08:37→20:05)
[2018-02-24] MEDS: CARVedilol 12.5 MG TAB PO ×3 (08:37→17:21)
[2018-02-24] MEDS: HumaLOG INSULIN (NovoLOG) PER UNIT SC ×4 (08:39→20:06)
[2018-02-24] MEDS ORDERED: ENOXAPARIN 40 MG/0.4 ML SYRINGE (J1650) SC (09:00)
[2018-02-24 12:12] LABS: BEDSIDE GLUCOSE 210 MG/DL (83-110)
[2018-02-24] MEDS: cefTRIAXone SOD 1 GM in D5W MINI-BAG PLUS 50 ML IV (12:20)
[2018-02-24 16:29] LABS: BEDSIDE GLUCOSE 186 MG/DL (83-110)
[2018-02-24 19:59] LABS: BEDSIDE GLUCOSE 175 MG/DL (83-110)
[2018-02-25] MEDS: NITROGLYCERIN 2% OINT 1 GM *U/D* PKT TOP ×9 (00:24→20:20)
[2018-02-25] MEDS: cefTRIAXone SOD 1 GM in D5W MINI-BAG PLUS 50 ML IV ×2 (00:24→11:37)
[2018-02-25] MEDS: CARVedilol 12.5 MG TAB PO ×2 (00:24→05:05)
[2018-02-25] MEDS: MORPHINE 4 MG/ML 1ML VIAL/SYRINGE (J2270) IV (01:12)
[2018-02-25] MEDS: ACETAMINOPHEN TAB 650MG DOSE (2X325MG) PO (01:12)
[2018-02-25 04:33] LABS: HEMATOCRIT 29.2 % (42.0-52.0); HEMOGLOBIN 8.7 g/dl (13.5-17.5); MEAN CORPUSCULAR HGB CONC 29.8 g/dl (32.0-36.5); MEAN CORPUSCULAR VOLUME 77.2 fl (80.0-96.0); PLATELET COUNT, AUTOMATED 110 10^3/uL (150-450); RED BLOOD COUNT 3.78 10^6/uL (4.30-6.10); RED CELL DISTRIBUTION WIDTH 16.5 % (11.5-14.5); WHITE BLOOD COUNT 6.1 10^3/uL (4.0-10.0)
[2018-02-25 04:43] LABS: INR 1.26
[2018-02-25 04:54] LABS: ALBUMIN 1.9 GM/DL (3.2-5.2); ANION GAP 9 MEQ/L (8-16); BLOOD UREA NITROGEN 88 MG/DL (7-18); CALCIUM LEVEL 8.2 MG/DL (8.8-10.2); CARBON DIOXIDE LEVEL 26 MEQ/L (21-32); CHLORIDE LEVEL 108 MEQ/L (98-107); CREATININE FOR GFR 2.02 MG/DL (0.70-1.30); GLOMERULAR FILTRATION RATE 34.6 (>42); GLUCOSE, FASTING 182 MG/DL (70-100); PHOSPHORUS LEVEL 2.8 MG/DL (2.5-4.9); POTASSIUM SERUM 3.9 MEQ/L (3.5-5.1); SODIUM LEVEL 143 MEQ/L (136-145)
[2018-02-25] MEDS: PANTOPRAZOLE 40MG INJ (PROTONIX) (C9113) IV (08:02)
[2018-02-25] MEDS: **hydrALAZINE HCL** 25 MG TAB PO ×3 (08:03→20:20)
[2018-02-25] MEDS: APIXABAN 2.5 MG TAB (ELIQUIS) PO ×2 (08:04→20:19)
[2018-02-25] MEDS: SENOKOT S TAB PO ×3 (08:04→20:50)
[2018-02-25] MEDS: SPIRONOLACTONE 12.5MG PER 1/2 TABLET PO (08:04)
[2018-02-25] MEDS: ISOSORBIDE DIN. (ISORDIL) 30 MG TAB PO ×3 (08:04→20:20)
[2018-02-25] MEDS: HumaLOG INSULIN (NovoLOG) PER UNIT SC ×4 (08:05→20:23)
[2018-02-25] MEDS: DOBUTamine HCL 500,000 MCG in APPROPRIATE DILUENT 1 EA IV (08:06)
[2018-02-25 11:35] LABS: BEDSIDE GLUCOSE 205 MG/DL (83-110)
[2018-02-25 12:59] LABS: NT-PRO BNP 7982 PG/ML (<125)
[2018-02-25 16:20] LABS: BEDSIDE GLUCOSE 349 MG/DL (83-110)
[2018-02-25 20:10] LABS: BEDSIDE GLUCOSE 302 MG/DL (83-110)
[2018-02-25] MEDS: ATORVASTATIN 20 MG TAB PO (20:18)
[2018-02-25] MEDS: CARVedilol 6.25 MG TAB PO (20:19)
[2018-02-26] MEDS: cefTRIAXone SOD 1 GM in D5W MINI-BAG PLUS 50 ML IV ×2 (00:18→12:18)
[2018-02-26] MEDS: NITROGLYCERIN 2% OINT 1 GM *U/D* PKT TOP ×6 (00:19→20:45)
[2018-02-26 05:26] LABS: HEMATOCRIT 30.8 % (42.0-52.0); MEAN CORPUSCULAR HEMOGLOBIN 22.7 pg (27.0-33.0); MEAN CORPUSCULAR HGB CONC 29.2 g/dl (32.0-36.5); MEAN CORPUSCULAR VOLUME 77.8 fl (80.0-96.0); PLATELET COUNT, AUTOMATED 113 10^3/uL (150-450); RED BLOOD COUNT 3.96 10^6/uL (4.30-6.10); RED CELL DISTRIBUTION WIDTH 16.3 % (11.5-14.5); WHITE BLOOD COUNT 6.2 10^3/uL (4.0-10.0)
[2018-02-26 05:50] LABS: INR 1.27; PROTHROMBIN TIME 16.1 SECONDS (12.1-14.4)
[2018-02-26 05:55] LABS: ANION GAP 10 MEQ/L (8-16); BLOOD UREA NITROGEN 77 MG/DL (7-18); CALCIUM LEVEL 8.3 MG/DL (8.8-10.2); CARBON DIOXIDE LEVEL 25 MEQ/L (21-32); CHLORIDE LEVEL 108 MEQ/L (98-107); CREATININE FOR GFR 1.48 MG/DL (0.70-1.30); GLOMERULAR FILTRATION RATE 49.6 (>42); GLUCOSE, FASTING 209 MG/DL (70-100); PHOSPHORUS LEVEL 2.2 MG/DL (2.5-4.9); SODIUM LEVEL 143 MEQ/L (136-145)
[2018-02-26] MEDS: HumaLOG INSULIN (NovoLOG) PER UNIT SC ×4 (07:52→20:46)
[2018-02-26] MEDS: PANTOPRAZOLE 40MG INJ (PROTONIX) (C9113) IV (07:52)
[2018-02-26] MEDS: ISOSORBIDE DIN. (ISORDIL) 30 MG TAB PO ×3 (07:53→20:46)
[2018-02-26] MEDS: SPIRONOLACTONE 12.5MG PER 1/2 TABLET PO (07:53)
[2018-02-26] MEDS: **hydrALAZINE HCL** 25 MG TAB PO ×3 (07:54→20:47)
[2018-02-26] MEDS: APIXABAN 2.5 MG TAB (ELIQUIS) PO ×2 (07:55→20:47)
[2018-02-26] MEDS: CARVedilol 6.25 MG TAB PO ×2 (07:55→20:47)
[2018-02-26] MEDS: SENOKOT S TAB PO ×2 (07:55→20:47)
[2018-02-26 11:33] LABS: BEDSIDE GLUCOSE 237 MG/DL (83-110)
[2018-02-26] MEDS: ASPIRIN 81 MG ENTERIC TAB PO (12:17)
[2018-02-26] MEDS: ENTRESTO 24-26MG TABLET (SACUBITRIL/VALSARTAN) PO ×2 (12:17→20:47)
[2018-02-26] MEDS: TORSEMIDE 20 MG TAB PO ×2 (12:21→17:23)
[2018-02-26 16:47] LABS: BEDSIDE GLUCOSE 309 MG/DL (83-110)
[2018-02-26 20:31] LABS: BEDSIDE GLUCOSE 285 MG/DL (83-110)
[2018-02-26] MEDS: ATORVASTATIN 20 MG TAB PO (20:46)
[2018-02-27 00:20] LABS: BEDSIDE GLUCOSE 241 MG/DL (83-110)
[2018-02-27] MEDS: cefTRIAXone SOD 1 GM in D5W MINI-BAG PLUS 50 ML IV ×3 (00:30→23:39)
[2018-02-27] MEDS: NITROGLYCERIN 2% OINT 1 GM *U/D* PKT TOP ×7 (00:31→23:45)
[2018-02-27 05:35] LABS: HEMATOCRIT 31.9 % (42.0-52.0); HEMOGLOBIN 9.3 g/dl (13.5-17.5); MEAN CORPUSCULAR HEMOGLOBIN 22.7 pg (27.0-33.0); MEAN CORPUSCULAR HGB CONC 29.2 g/dl (32.0-36.5); MEAN CORPUSCULAR VOLUME 77.8 fl (80.0-96.0); PLATELET COUNT, AUTOMATED 118 10^3/uL (150-450); RED CELL DISTRIBUTION WIDTH 16.4 % (11.5-14.5); WHITE BLOOD COUNT 6.7 10^3/uL (4.0-10.0)
[2018-02-27 05:54] LABS: ALBUMIN 1.9 GM/DL (3.2-5.2); ANION GAP 7 MEQ/L (8-16); BLOOD UREA NITROGEN 60 MG/DL (7-18); CALCIUM LEVEL 7.7 MG/DL (8.8-10.2); CARBON DIOXIDE LEVEL 28 MEQ/L (21-32); CHLORIDE LEVEL 107 MEQ/L (98-107); GLOMERULAR FILTRATION RATE 52.9 (>42); GLUCOSE, FASTING 257 MG/DL (70-100); PHOSPHORUS LEVEL 2.3 MG/DL (2.5-4.9); POTASSIUM SERUM 3.9 MEQ/L (3.5-5.1); SODIUM LEVEL 142 MEQ/L (136-145)
[2018-02-27 06:01] LABS: INR 1.21; PROTHROMBIN TIME 15.5 SECONDS (12.1-14.4)
[2018-02-27] MEDS: **hydrALAZINE HCL** 25 MG TAB PO ×3 (07:40→21:08)
[2018-02-27] MEDS: SPIRONOLACTONE 12.5MG PER 1/2 TABLET PO (07:40)
[2018-02-27] MEDS: CARVedilol 6.25 MG TAB PO ×2 (07:40→21:09)
[2018-02-27] MEDS: APIXABAN 2.5 MG TAB (ELIQUIS) PO ×2 (07:40→21:05)
[2018-02-27] MEDS: ASPIRIN 81 MG ENTERIC TAB PO (07:41)
[2018-02-27] MEDS: SENOKOT S TAB PO ×2 (07:41→21:08)
[2018-02-27] MEDS: ENTRESTO 24-26MG TABLET (SACUBITRIL/VALSARTAN) PO ×2 (07:41→21:05)
[2018-02-27] MEDS: ISOSORBIDE DIN. (ISORDIL) 30 MG TAB PO ×3 (07:41→21:08)
[2018-02-27] MEDS: PANTOPRAZOLE 40MG INJ (PROTONIX) (C9113) IV (07:42)
[2018-02-27] MEDS: TORSEMIDE 20 MG TAB PO ×2 (07:42→16:31)
[2018-02-27] MEDS: HumaLOG INSULIN (NovoLOG) PER UNIT SC ×4 (07:43→21:10)
[2018-02-27 11:13] LABS: BEDSIDE GLUCOSE 355 MG/DL (83-110)
[2018-02-27 16:20] LABS: BEDSIDE GLUCOSE 265 MG/DL (83-110)
[2018-02-27] MEDS ORDERED: SLF 3 ML SYR IV (17:15)
[2018-02-27 20:57] LABS: BEDSIDE GLUCOSE 229 MG/DL (83-110)
[2018-02-27] MEDS: ATORVASTATIN 20 MG TAB PO (21:08)
[2018-02-27] MEDS: SLF 3 ML SYR IV (21:10)
[2018-02-28] MEDS: NITROGLYCERIN 2% OINT 1 GM *U/D* PKT TOP ×5 (04:00→20:00)
[2018-02-28] MEDS: SLF 3 ML SYR IV ×3 (05:00→21:07)
[2018-02-28 06:23] LABS: PROTHROMBIN TIME 15.4 SECONDS (12.1-14.4)
[2018-02-28 06:48] LABS: BEDSIDE GLUCOSE 246 MG/DL (83-110)
[2018-02-28] MEDS: PANTOPRAZOLE 40MG INJ (PROTONIX) (C9113) IV (08:34)
[2018-02-28] MEDS: SPIRONOLACTONE 12.5MG PER 1/2 TABLET PO (08:36)
[2018-02-28] MEDS: HumaLOG INSULIN (NovoLOG) PER UNIT SC ×4 (08:36→21:06)
[2018-02-28] MEDS: ENTRESTO 24-26MG TABLET (SACUBITRIL/VALSARTAN) PO ×2 (08:37→21:06)
[2018-02-28] MEDS: **hydrALAZINE HCL** 25 MG TAB PO (08:37)
[2018-02-28] MEDS: SENOKOT S TAB PO ×2 (08:37→21:06)
[2018-02-28] MEDS: ASPIRIN 81 MG ENTERIC TAB PO (08:38)
[2018-02-28] MEDS: ISOSORBIDE DIN. (ISORDIL) 30 MG TAB PO ×3 (08:38→21:06)
[2018-02-28] MEDS: TORSEMIDE 20 MG TAB PO ×2 (08:38→16:25)
[2018-02-28] MEDS: APIXABAN 2.5 MG TAB (ELIQUIS) PO ×2 (08:39→21:06)
[2018-02-28] MEDS: CARVedilol 6.25 MG TAB PO ×2 (08:40→21:07)
[2018-02-28 11:34] LABS: BEDSIDE GLUCOSE 294 MG/DL (83-110)
[2018-02-28 11:37] LABS: ALBUMIN 2.2 GM/DL (3.2-5.2); ANION GAP 11 MEQ/L (8-16); BLOOD UREA NITROGEN 58 MG/DL (7-18); CALCIUM LEVEL 8.1 MG/DL (8.8-10.2); CARBON DIOXIDE LEVEL 24 MEQ/L (21-32); CHLORIDE LEVEL 106 MEQ/L (98-107); CREATININE FOR GFR 1.57 MG/DL (0.70-1.30); GLOMERULAR FILTRATION RATE 46.3 (>42); GLUCOSE, FASTING 286 MG/DL (70-100); POTASSIUM SERUM 4.3 MEQ/L (3.5-5.1); SODIUM LEVEL 141 MEQ/L (136-145)
[2018-02-28] MEDS: cefTRIAXone SOD 1 GM in D5W MINI-BAG PLUS 50 ML IV (12:00)
[2018-02-28 16:22] LABS: BEDSIDE GLUCOSE 267 MG/DL (83-110)
[2018-02-28 20:58] LABS: BEDSIDE GLUCOSE 267 MG/DL (83-110)
[2018-02-28] MEDS: ATORVASTATIN 20 MG TAB PO (21:06)
[2018-03-01] MEDS: cefTRIAXone SOD 1 GM in D5W MINI-BAG PLUS 50 ML IV ×2 (00:14→12:53)
[2018-03-01] MEDS: NITROGLYCERIN 2% OINT 1 GM *U/D* PKT TOP ×6 (04:00→20:00)
[2018-03-01] MEDS: SLF 3 ML SYR IV ×3 (05:54→20:43)
[2018-03-01 06:44] LABS: ANION GAP 8 MEQ/L (8-16); BLOOD UREA NITROGEN 71 MG/DL (7-18); CARBON DIOXIDE LEVEL 28 MEQ/L (21-32); CHLORIDE LEVEL 106 MEQ/L (98-107); CREATININE FOR GFR 1.55 MG/DL (0.70-1.30); GLUCOSE, FASTING 324 MG/DL (70-100); INR 1.19; PROTHROMBIN TIME 15.3 SECONDS (12.1-14.4); SODIUM LEVEL 142 MEQ/L (136-145)
[2018-03-01] MEDS: PANTOPRAZOLE 40MG INJ (PROTONIX) (C9113) IV (08:56)
[2018-03-01] MEDS: HumaLOG INSULIN (NovoLOG) PER UNIT SC ×4 (08:56→20:43)
[2018-03-01] MEDS: ENTRESTO 24-26MG TABLET (SACUBITRIL/VALSARTAN) PO ×2 (08:57→20:42)
[2018-03-01] MEDS: CARVedilol 6.25 MG TAB PO ×2 (08:57→20:42)
[2018-03-01] MEDS: SPIRONOLACTONE 12.5MG PER 1/2 TABLET PO (08:57)
[2018-03-01] MEDS: TORSEMIDE 20 MG TAB PO ×2 (08:58→17:09)
[2018-03-01] MEDS: ISOSORBIDE DIN. (ISORDIL) 30 MG TAB PO ×3 (08:58→20:42)
[2018-03-01] MEDS: SENOKOT S TAB PO ×2 (08:58→20:43)
[2018-03-01] MEDS: ASPIRIN 81 MG ENTERIC TAB PO (08:58)
[2018-03-01] MEDS: APIXABAN 2.5 MG TAB (ELIQUIS) PO ×2 (08:58→20:42)
[2018-03-01 12:02] LABS: BEDSIDE GLUCOSE 367 MG/DL (83-110)
[2018-03-01 16:53] LABS: BEDSIDE GLUCOSE 226 MG/DL (83-110)
[2018-03-01] MEDS: ATORVASTATIN 20 MG TAB PO (20:43)
[2018-03-01 20:50] LABS: BEDSIDE GLUCOSE 272 MG/DL (83-110)
[2018-03-02] MEDS: cefTRIAXone SOD 1 GM in D5W MINI-BAG PLUS 50 ML IV (00:34)
[2018-03-02] MEDS: NITROGLYCERIN 2% OINT 1 GM *U/D* PKT TOP ×7 (04:00→20:00)
[2018-03-02] MEDS: SLF 3 ML SYR IV ×3 (05:35→21:30)
[2018-03-02 06:36] LABS: ANION GAP 7 MEQ/L (8-16); BLOOD UREA NITROGEN 64 MG/DL (7-18); CALCIUM LEVEL 8.1 MG/DL (8.8-10.2); CARBON DIOXIDE LEVEL 29 MEQ/L (21-32); CHLORIDE LEVEL 108 MEQ/L (98-107); GLOMERULAR FILTRATION RATE 48.8 (>42); GLUCOSE, FASTING 253 MG/DL (70-100); SODIUM LEVEL 144 MEQ/L (136-145)
[2018-03-02] MEDS: ENTRESTO 24-26MG TABLET (SACUBITRIL/VALSARTAN) PO ×2 (08:32→21:29)
[2018-03-02] MEDS: TORSEMIDE 20 MG TAB PO ×2 (08:33→17:30)
[2018-03-02] MEDS: SENOKOT S TAB PO ×2 (08:33→21:30)
[2018-03-02] MEDS: SPIRONOLACTONE 12.5MG PER 1/2 TABLET PO (08:33)
[2018-03-02] MEDS: ISOSORBIDE DIN. (ISORDIL) 30 MG TAB PO ×3 (08:37→21:29)
[2018-03-02] MEDS: APIXABAN 2.5 MG TAB (ELIQUIS) PO ×2 (08:37→21:30)
[2018-03-02] MEDS: ASPIRIN 81 MG ENTERIC TAB PO (08:38)
[2018-03-02] MEDS: CARVedilol 6.25 MG TAB PO ×2 (08:38→21:29)
[2018-03-02] MEDS: HumaLOG INSULIN (NovoLOG) PER UNIT SC ×4 (08:39→21:28)
[2018-03-02] MEDS: PANTOPRAZOLE 40MG INJ (PROTONIX) (C9113) IV (08:41)
[2018-03-02 11:56] LABS: BEDSIDE GLUCOSE 248 MG/DL (83-110)
[2018-03-02 16:46] LABS: BEDSIDE GLUCOSE 269 MG/DL (83-110)
[2018-03-02 21:21] LABS: BEDSIDE GLUCOSE 279 MG/DL (83-110)
[2018-03-02] MEDS: ATORVASTATIN 20 MG TAB PO (21:29)
[2018-03-03] MEDS: ACETAMINOPHEN TAB 650MG DOSE (2X325MG) PO (00:09)
[2018-03-03] MEDS: NITROGLYCERIN 2% OINT 1 GM *U/D* PKT TOP ×4 (05:16→12:00)
[2018-03-03] MEDS: SLF 3 ML SYR IV (05:44)
[2018-03-03 06:01] LABS: HEMATOCRIT 32.2 % (42.0-52.0); HEMOGLOBIN 9.5 g/dl (13.5-17.5); MEAN CORPUSCULAR HEMOGLOBIN 22.9 pg (27.0-33.0); MEAN CORPUSCULAR HGB CONC 29.5 g/dl (32.0-36.5); MEAN CORPUSCULAR VOLUME 77.6 fl (80.0-96.0); PLATELET COUNT, AUTOMATED 143 10^3/uL (150-450); RED BLOOD COUNT 4.15 10^6/uL (4.30-6.10); RED CELL DISTRIBUTION WIDTH 16.8 % (11.5-14.5); WHITE BLOOD COUNT 5.3 10^3/uL (4.0-10.0)
[2018-03-03 06:22] LABS: ANION GAP 7 MEQ/L (8-16); BLOOD UREA NITROGEN 63 MG/DL (7-18); CALCIUM LEVEL 8.1 MG/DL (8.8-10.2); CARBON DIOXIDE LEVEL 30 MEQ/L (21-32); CHLORIDE LEVEL 108 MEQ/L (98-107); CREATININE FOR GFR 1.54 MG/DL (0.70-1.30); GLOMERULAR FILTRATION RATE 47.4 (>42); GLUCOSE, FASTING 242 MG/DL (70-100); POTASSIUM SERUM 4.1 MEQ/L (3.5-5.1); SODIUM LEVEL 145 MEQ/L (136-145)
[2018-03-03] MEDS: PANTOPRAZOLE 40MG INJ (PROTONIX) (C9113) IV (08:07)
[2018-03-03] MEDS: CARVedilol 6.25 MG TAB PO (08:08)
[2018-03-03] MEDS: TORSEMIDE 20 MG TAB PO (08:08)
[2018-03-03] MEDS: ENTRESTO 24-26MG TABLET (SACUBITRIL/VALSARTAN) PO (08:08)
[2018-03-03] MEDS: SPIRONOLACTONE 12.5MG PER 1/2 TABLET PO (08:08)
[2018-03-03] MEDS: ISOSORBIDE DIN. (ISORDIL) 30 MG TAB PO (08:08)
[2018-03-03] MEDS: ASPIRIN 81 MG ENTERIC TAB PO (08:09)
[2018-03-03] MEDS: APIXABAN 2.5 MG TAB (ELIQUIS) PO (08:09)
[2018-03-03] MEDS: SENOKOT S TAB PO (08:09)
[2018-03-03] MEDS: HumaLOG INSULIN (NovoLOG) PER UNIT SC ×2 (08:10→12:32)
[2018-03-03 11:42] LABS: BEDSIDE GLUCOSE 274 MG/DL (83-110)
== END 2018-03-03 14:08 | disposition home or self-care (01) | DRG 951 ==
LOC: M PCU 02-25 15:30 → M ICU 11:16
PROC: 0F9430Z Drainage of Gallbladder with Drainage Device, Percutaneous Approach (ICD-10-PCS; principal; 2018-02-23)
DX: I13.0 Hypertensive heart and chronic kidney disease with heart failure and stage 1 through stage 4 chronic kidney disease, or unspecified chronic kidney disease (principal); I47.2 Ventricular tachycardia; K81.0 Acute cholecystitis; D68.4 Acquired coagulation factor deficiency; N17.9 Acute kidney failure, unspecified; E46 Unspecified protein-calorie malnutrition; N18.4 Chronic kidney disease, stage 4 (severe); I48.2 Chronic atrial fibrillation; I25.5 Ischemic cardiomyopathy; I08.0 Rheumatic disorders of both mitral and aortic valves; E11.9 Type 2 diabetes mellitus without complications; I44.7 Left bundle-branch block, unspecified; R10.33 Periumbilical pain; I25.10 Atherosclerotic heart disease of native coronary artery without angina pectoris; Z95.1 Presence of aortocoronary bypass graft; Z95.2 Presence of prosthetic heart valve; E78.5 Hyperlipidemia, unspecified; E66.9 Obesity, unspecified; Z95.0 Presence of cardiac pacemaker; Z79.4 Long term (current) use of insulin; Z88.2 Allergy status to sulfonamides; Z88.5 Allergy status to narcotic agent; I50.43 Acute on chronic combined systolic (congestive) and diastolic (congestive) heart failure

== ENCOUNTER 2018-04-14 10:26 | Inpatient (IN) | payer BC, OTHER ==
[~2018-04-14] VITALS: Ht 180.3 cm; Wt 81.6 kg
[~2018-04-14 10:26] MED LIST changes: +/ATOR40TA PO; +/FENO14TA PO; +/NITR4TASL SL; +/WARF25TA PO; +/WARF5TAB PO; +ALDA25TA2 PO; +ALLO10TA PO; +ASPI81TA85 PO; +ATOR40TA75 PO; +CARV12.5 PO; +CARV25TA PO; +CARV6.25 PO; +CENTTAB47 PO; +CORE25TA PO; +COUM2.5T17 PO; +DEMA20TA PO; +DEMA20TA6 PO; -DEXTROSE 50% 50 ML SYRINGE IV; +DIGO25TA PO; +DIGO5EL PO; +DULC5TAB PO; +ECOT81TA5 PO; +ELIQ2.5T PO; +ENTR1TAB PO; +FERG1TAB PO; +GLUC1KIT SC; +GLUC4CHW19 PO; -GLUCAGON FOR INJ 1 MG VIAL (J1610) SC; -GLUCOSE 4 GM CHEW TABLET PO; +HUMA100I5 SC; +HYDR-3910 PO; +HYDR25TA7 PO; +HYDR50TA PO; +INSUDET SC; +INSUH10VL SC; +INSULANT SC; +ISOS20TAB PO; +ISOS30TAB PO; +LANTINJ4 SC; +LIDO5DIS41 TD; +LIPI20TA PO; +LISI10TA4 PO; +LISI40TAB PO; +LISI5TAB PO; +METO100T PO; +MULTTAB50 PO; +NITR0.4D6 SL; +NITR400A5 SL; +NITR4TASL SL; +NOVOINJ3 SC; +PANT40TA3 PO; +POTA75TA PO; +QUIN40TA4 PO; +RANE1000 PO; +ROCA0.25 PO; +SENO8.6T5 PO; +SPIR-10 PO; +SPIR25TA2 PO; +TORS100T12 PO; +TORS20TA2 PO; +TUMS500C PO; +TYLE325T5 PO; +ULOR80TA PO; +ULOR80TA2 PO; +VITA-122 PO; +VITMTA PO; +VOLT1GEL15 TD; +VOLT1GEL15 TOP; +VOLT1GEL2 TOP; +WARF-23 PO; +ZETI10TA21 PO; +isordil
[2018-04-14] MEDS ORDERED: NS 500 ML IV ONE (11:15)
[2018-04-14 11:40] LABS: BASO % 0.3 % (0.0-1.0); EOS % 0.4 % (0.0-3.0); HEMATOCRIT 32.1 % (42.0-52.0); HEMOGLOBIN 9.6 g/dl (13.5-17.5); LYMPH # 0.4 10^3/uL (1.5-4.5); LYMPH % 5.4 % (24.0-44.0); MEAN CORPUSCULAR HEMOGLOBIN 23.5 pg (27.0-33.0); MEAN CORPUSCULAR HGB CONC 29.9 g/dl (32.0-36.5); MEAN CORPUSCULAR VOLUME 78.7 fl (80.0-96.0); MONO # 0.5 10^3/uL (0.0-0.8); MONO % 6.8 % (0.0-5.0); NEUTROPHILS # 6.2 10^3/uL (1.8-7.7); NEUTROPHILS % 86.5 % (36.0-66.0); PLATELET COUNT, AUTOMATED 150 10^3/uL (150-450); RED BLOOD COUNT 4.08 10^6/uL (4.30-6.10); WHITE BLOOD COUNT 7.2 10^3/uL (4.0-10.0)
[2018-04-14 11:53] LABS: INR 1.49; PROTHROMBIN TIME 18.3 SECONDS (12.1-14.4)
[2018-04-14 11:54] LABS: PARTIAL THROMBOPLASTIN TIME 35.5 SECONDS (25.4-37.6)
[2018-04-14 12:13] LABS: ALBUMIN 2.2 GM/DL (3.2-5.2); ALT/SGPT 29 U/L (12-78); BILIRUBIN,DIRECT 0.3 MG/DL (0.0-0.2); BILIRUBIN,TOTAL 0.7 MG/DL (0.2-1.0); BLOOD UREA NITROGEN 58 MG/DL (7-18); CALCIUM LEVEL 8.2 MG/DL (8.8-10.2); CARBON DIOXIDE LEVEL 21 MEQ/L (21-32); CHLORIDE LEVEL 110 MEQ/L (98-107); CK-MB VALUE MASS < 1.0 NG/ML (<3.6); CPK CREATINE PHOSPHOKINASE 21 U/L (39-308); CREATININE FOR GFR 1.76 MG/DL (0.70-1.30); FREE T4 1.61 NG/DL (0.76-1.46); GLOMERULAR FILTRATION RATE 40.6 (>42); GLUCOSE, FASTING 170 MG/DL (70-100); LIPASE 108 U/L (73-393); MB/CK RELATIVE INDEX 4.76 (< OR =4); POTASSIUM SERUM 3.8 MEQ/L (3.5-5.1); SODIUM LEVEL 143 MEQ/L (136-145); TOTAL PROTEIN 5.9 GM/DL (6.4-8.2); TROPONIN I < 0.02 NG/ML (< 0.10)
--- NOTE | 2018-04-14 13:16 | REP ---
CHEST AP LATERAL: 04/14/2018. Clinical history: Weakness. Prior history CHF. Technique: AP and lateral semi-erect seated chest. Comparison: 02/25/2018, 07/09/2017. Findings: A multi lead AICD pacer is again seen unchanged. Sternotomy wires and mediastinal clips are also noted. Cardiomegaly with left atrial and ventricular enlargement and some right heart enlargement as well. There is vascular redistribution, pulmonary edema evident. Bibasilar atelectatic changes are seen. Suspect small effusions. Concurrent pneumonitis difficult to exclude, please correlate clinically. Bones are unchanged. Mediastinal contours in width unchanged. Airway midline. Impression: 1. Cardiomegaly with right and left heart enlargement, vascular redistribution with pulmonary edema and some effusions as well as basilar atelectatic changes seen. 2. Sternotomy wires, mediastinal clips, AICD pacer, all unchanged. Electronically Signed by Omer Baig MD 04/14/2018 04:01 P
[2018-04-14] MEDS ORDERED: LANTINJ4 SC (13:45)
[2018-04-14] MEDS ORDERED: SPIR-10 PO (13:45)
[2018-04-14] MEDS ORDERED: ENTR1TAB7 PO (13:45)
[2018-04-14] MEDS ORDERED: ELIQ2.5T PO (13:45)
[2018-04-14] MEDS ORDERED: TORS20TA2 PO (13:45)
[2018-04-14] MEDS ORDERED: VITMTA PO (13:47)
[2018-04-14] MEDS ORDERED: CARV6.25 PO (13:47)
[2018-04-14] MEDS ORDERED: GLUCAGON FOR INJ 1 MG VIAL (J1610) SC PRN (14:00)
[2018-04-14] MEDS ORDERED: DEXTROSE 50% 50 ML SYRINGE IV PRN (14:00)
[2018-04-14] MEDS ORDERED: GLUCOSE 4 GM CHEW TABLET PO PRN (14:00)
[2018-04-14] MEDS ORDERED: NITROGLYCERIN 0.4 MG SUBL TABLET SL PRN (14:00)
[2018-04-14] MEDS ORDERED: NS 1,000 ML IV SCH (14:00)
--- NOTE | 2018-04-14 15:06 | REP ---
CT ABDOMEN AND PELVIS WITHOUT IV OR ORAL CONTRAST: HISTORY: Diarrhea. Hyperactive bowel sounds. COMPARISON CT STUDY: February 23, 2018. CT FINDINGS: Preliminary field recorder view shows gaseous distension of the colon in the central abdomen. Cardiomegaly with pacemaker. There are small bilateral pleural effusions right greater than left on axial CT images at the lung bases. Gallstones are seen in the gallbladder. The gallbladder is small and somewhat contracted in appearance. This is improved from the February 23, 2018 appearance. There is still some gallbladder wall thickening suspected. The pancreas shows no abnormality. No significant adrenal lesion is seen. Prominent vascular calcification is seen. No hydronephrosis is noted. No focal hepatic or splenic lesion is seen. No retroperitoneal mass or adenopathy is seen. No obstructive gastrointestinal lesion is seen. There is an unremarkable colon anastomosis post partial left colectomy. Mild gaseous distension is seen in the transverse colon, splenic flexure region extending down to the anastomosis, but there does not appear to be obstruction. Formed stool seen in the distal colon. There is mild mural thickening in the distal colon circumferentially consistent with enterocolitis. This is a new finding. There is no evidence of ascites. No abdominal wall defect is seen. IMPRESSION: Mural thickening distal to the left colon anastomosis in the rectosigmoid and rectum, question colitis. No obstructive lesion seen. Mild gaseous distension of the transverse and descending segment of the colon. Cholelithiasis. Gallbladder is no longer dilated. Small bilateral pleural effusions right greater than left. Electronically Signed by Rosalio Mcbride MD 04/14/2018 03:57 P
--- NOTE | 2018-04-14 15:31 | HPEPDOC ---
General Date of Admission Apr 14, 2018 at 14:19 Primary Care Physician: Morgan Best Attending Physician: ARLETTE LOMBARDI MD Chief Complaint The patient is a 72-year-old male admitted with a reason for visit of Acute Kidney Injury Dehydration. Source: Patient, RN notes reviewed, Old records Exam Limitations: No limitations Associated Symptoms: Weakness History of Present Illness Mr. Dixon is a 72-year-old male who presents to [facility] emergency department with weakness and diarrhea. Past medical history significant for chronic atrial fibrillation, diastolic and systolic congestive heart failure with an ejection fraction 35-40%, coronary artery disease, hypertension, diabetes mellitus, chronic kidney disease stage III, gout, lumbar degenerative disc disease with stenosis/radiculopathy, history of colon cancer, history of skin cancer, mitral valve calcification/ins ufficiency, history of iron deficiency anemia, hyperlipidemia. Patient states that for the last couple of days he has been progressively getting weaker to the point where he is now unable to stand. At baseline he uses a walker. He denies numbness and tingling in his lower extremities. There is no swelling. He states he has no back pain or neck pain. He has been eating and drinking without difficulty and notes no changes to his diet. He is not nauseous, vomiting, has abdominal pain however, patient does admit to watery diarrhea for the last 5 days. He is not febrile. He denies night sweats or chills. Patient was recently seen by his local claims technician on 04/06/2018 at which time he had also admitted to diarrhea. His started on cholestyramine. His thought that his diarrhea was secondary to his gallbladder disease. At time of his cardiology appointment patient was encouraged to maintain a salt and fluid restriction. His advised to resume his torsemide 20 mg by mouth daily and to increase to 20 mg twice daily she does weight increase by 2 more pounds. No changes were made to any of his other medications. However, patient states that in the coming days cardiology had been in contact with patient and advised him to discontinue his diuretics. He was further advised to present to the emergency department for further evaluation. Emergency department evaluation revealed atrial fibrillation on EKG. There is no white count. There is a slight increase in his creatinine to 1.76. Chest x-ray reveals poorly congestion; however this does not appear to be significantly new finding. Hospitalist service was consulted and patient was admitted for further medical management. Home Medications Scheduled Apixaban Base (Eliquis) 2.5 Mg Tab, 2.5 MG PO BID, (Reported) Aspirin (Ecotrin Low Strength) 81 Mg Tab, 81 MG PO DAILY, (Reported) Atorvastatin Calcium (Atorvastatin Calcium) 40 Mg Tab, 40 MG PO DAILY, (Reported) Calcitriol (Rocaltrol) 0.25 Mcg Cap, 0.25 MCG PO 3XW, (Reported) TUE,TUE,TUE Carvedilol (Carvedilol) 6.25 Mg Tab, 6.25 MG PO BID, (Reported) Febuxostat (Uloric) 80 Mg Tab, 80 MG PO DAILY, (Reported) Insulin Aspart (Novolog Flexpen) 100 Unit/Ml Inj, 0 SC ACHS, (Reported) PER SLIDING SCALE Insulin Glargine (Lantus Solostar) 100 Unit/Ml Inj, 24 UNITS SC QAM, (Reported) Insulin Glargine (Lantus Solostar) 100 Unit/Ml Inj, 22 UNITS SC QHS, (Reported) Isosorbide Dinitrate (Isosorbide Dinitrate) 30 Mg Tab, 30 MG PO TID, (Reported) Multivitamins *[facility] STOCKED* (Thera M Plus *[facility] STOCKED*) 1 Tab Tab, 1 TAB PO DAILY, (Reported) Sacubitril/Valsartan (Entresto 49-51 mg) 1 Tab Tab, 1 TAB PO BID, (Reported) Spironolactone (Spironolactone) 25 Mg Tab, 12.5 MG PO DAILY, (Reported) Torsemide (Torsemide) 20 Mg Tab, 20 MG PO BID, (Reported) Scheduled PRN (Voltaren) 1 % Gel, 1 DOSE TOP QID PRN for PAIN, (Reported) APPLY TO PAINFUL AREAS Acetaminophen (Tylenol) 325 Mg Tab, 650 MG PO Q4H PRN for PAIN, (Reported) Nitroglycerin (Nitrostat) 0.4 Mg Subl, 0.4 MG SL NITRO PRN for CHEST PAIN, (Reported) Allergies Coded Allergies: Sulfa Antibiotics (Verified Allergy, Intermediate, HIVES, DIZZINESS, 04/14/18) Oxycodone (Verified Adverse Reaction, Mild, Hallucinates, 04/14/18) Past Medical History Medical History 1 Chronic atrial fibrillation 2. Diastolic and systolic congestive heart failure with an left ventricular ejection fraction 35-40% 3. Coronary artery disease 4. Hypertension 5. Diabetes mellitus 6. Chronic kidney disease, stage III 7. Gout 8. Lumbar degenerative disc disease with stenosis/radiculopathy 9. History of colon cancer 10. History of skin cancer 11. Mitral valve calcification/insufficiency 12. History of iron deficiency anemia 13. Hyperlipidemia Surgical History 1. Coronary artery bypass graft 2 2. He extends 5 3. Colonoscopy 4. Pacemaker and automated intracardiac defibrillator 5. Cardiac ablation 6. Appendectomy 7. Cataract surgery 8. Sigmoid colon resection 9. Basal cell carcinoma excision Family History Father is at age 63 years from coronary artery disease. Mother is at age 58 years with diabetes. He has one sister and one son who are healthy. Social History * Smoker: former Smoker Alcohol: occationally Drugs: denies Patient lives at home with his . His a former tobacco user. He admits to alcohol use. Denies illicit drug use. Review of Systems Constitutional: Reports: Weakness; Denies: Chills, Fever, Night Sweats Eyes: Denies: Vision change ENT: Denies: Head Aches, Dysphagia, Sinus Congestion, Post Nasal Drip, Sore Throat, Epistaxis Skin: Reports: Lesions (bilateral lower extremity); Denies: Rash, Bruising Pulmonary: Reports: Cough (nonproductive); Denies: Dyspnea, Pleuritic Chest Pain Cardiovascular: Denies: Chest Pain, Palpitations, Orthopnea, Paroxysmal Noc. Dyspnea, Edema, Lt Headedness Gastrointestinal: Reports: Diarrhea (watery, nonbloody); Denies: Nausea, Vomiting, Abdominal Pain, Constipation, Melena, Hematochezia Genitourinary: Denies: Dysuria, Frequency, Incontinence, Hematuria Hematologic: Denies: Bruising, Bleeding Excessively Musculoskeletal: Denies: Neck Pain, Back Pain, Joint Pain, Muscle Pain Neurological: Reports: Weakness; Denies: Numbness Physical Examination General Exam: Positive: Alert, Cooperative, No Acute Distress Eye Exam: Positive: PERRLA, Conjunctiva & lids normal, EOMI; Negative: Sclera icteric, Ptosis ENT Exam: Positive: Atraumatic, Pharynx Normal, Tongue Midline, Nares Patent; Negative: Mucous membr. moist/pink, Pharyngeal Edema Neck Exam: Positive: Supple; Negative: thyromegaly, Lymphadenopathy Chest Exam: Positive: Clear to auscultation, Normal air movement; Negative: Rales, Rhonchi, Wheezing, Diminished Heart Exam: Positive: Irregular Rhythm; Negative: Gallops, Murmurs, Rubs Telemetry: Positive: Atrial fibrillation Abdomen Exam: Positive: BS Hyperactive, Soft; Negative: Tenderness, Hepatospenomegaly, Mass, Hernia Extremity Exam: Positive: Other (chronic diabetic wound ulcers noted on the bilateral lower extremities); Negative: Clubbing, Cyanosis, Edema, Normal pulses (irregularly irregular), Tenderness, Swelling Skin Exam: Positive: Lesion (bilateral lower extremity) Neuro Exam: Positive: Normal Speech, Cranial Nerves 3-12 NL Psych Exam: Positive: Oriented x 3 Other physical findings Chest x-ray, two-view, PA and lateral and 04/14/2018 revealed cardiomegaly with right and left heart enlargement, vascular redistribution with pulmonary edema and some effusions as well as basilar atelectatic changes seen. Sternotomy wires, mediastinal clips, AICD pacer, all unchanged. CT abdomen and pelvis without contrast on 04/14/2018 with report pending. Vital Signs Vital Signs Date Time Temp Pulse Resp B/P (MAP) Pulse Ox O2 Delivery O2 Flow Rate FiO2 04/14/18 13:41 95 20 93 04/14/18 13:30 136/68 (90) 04/14/18 11:37 99.4 Room Air Laboratory Data Labs 24H Laboratory Tests 2 04/14/18 11:29: Immature Granulocyte % (Auto) 0.6, White Blood Count 7.2, Red Blood Count 4.08L, Hemoglobin 9.6L, Hematocrit 32.1L, Mean Corpuscular Volume 78.7L, Mean Corpu scular Hemoglobin 23.5L, Mean Corpuscular Hemoglobin Concent 29.9L, Red Cell Distribution Width 16.9H, Platelet Count 150, Neutrophils (%) (Auto) 86.5H, Lymphocytes (%) (Auto) 5.4L, Monocytes (%) (Auto) 6.8H, Eosinophils (%) (Auto) 0.4, Basophils (%) (Auto) 0.3, Neutrophils # (Auto) 6.2, Lymphocytes # (Auto) 0.4L, Monocytes # (Auto) 0.5, Eosinophils # (Auto) 0.0, Basophils # (Auto) 0.0, Nucleated Red Blood Cells % (auto) 0.0, Prothrombin Time 18.3H, Prothromb Time International Ratio 1.49, Activated Partial Thromboplast Time 35.5, Anion Gap 12, Glomerular Filtration Rate 40.6L, Calcium Level 8.2L, Aspartate Amino Transf (AST/SGOT) 20, Alanine Aminotransferase (ALT/SGPT) 29, Alkaline Phosphatase 214H, Total Bilirubin 0.7, Direct Bilirubin 0.3H, Total Creatine Kinase 21L, Creatine Kinase MB < 1.0, Creatine Kinase MB Relative Index 4.76H, Troponin I < 0.02, Total Protein 5.9L, Albumin 2.2L, Albumin/Globulin Ratio 0.59L, Lipase 108, Thyroid Stimulating Hormone (TSH) 1.400, Free Thyroxine 1.61H CBC/BMP Laboratory Tests 04/14/18 11:29 Red Blood Count 4.08 L, Mean Corpuscular Volume 78.7 L, Mean Corpuscular Hemoglobin 23.5 L, Mean Corpuscular Hemoglobin Concent 29.9 L, Red Cell Distribution Width 16.9 H, Neutrophils (%) (Auto) 86.5 H, Lymphocytes (%) (Auto) 5.4 L, Monocytes (%) (Auto) 6.8 H, Eosinophils (%) (Auto) 0.4, Basophils (%) (Auto) 0.3, Neutrophils # (Auto) 6.2, Lymphocytes # (Auto) 0.4 L, Monocytes # (Auto) 0.5, Eosinophils # (Auto) 0.0, Basophils # (Auto) 0.0 Plan / VTE VTE Prophylaxis Ordered?: Yes (Eliquis 2.5 mg by mouth twice a day) Plan Plan 1. Diarrhea: Patient has no systemic signs of infection. No leukocytosis. Afebrile. Not tachycardic. Will make patient nothing by mouth for the time being. Could consider advancing diet in the morning. Gentle fluid rehydration with normal saline at 50 mLs per hour for the next 12 hours. Could consider rechecking volume status in the morning. Will obtain a CT of the abdomen and pelvis without contrast. Orthostatic vital signs. GI panel. Stool for ova and parasites. Stool for leukocytes. Will obtain daily labs. Overwhelming signs of infection. Will hold off antibiotics at the time being. Will hold diuretics at this time. Zofran for nausea. 2. Weakness: Likely result of progressive deconditioning and associated diarrhea. Will obtain physical therapy consult. 3. Systolic and diastolic congestive heart failure with left ventricular ejection fraction 35-40%: Follows with local claims technician. Due to mild elevation in creatinine will hold diuretics at this time. Monitor in the progressive care unit. 4. Chronic atrial fibrillation: Continue patient's Eliquis 2.5 mg by mouth daily. Monitor in the progressive care unit. 5. Coronary artery disease status post myocardial infarction with stenting: Continue aspirin 81 mg by mouth daily, atorvastatin 40 g by mouth daily, carvedilol 6.25 mg by mouth twice daily, isosorbide dinitrate 30 mg by mouth 3 times a day, and Nitrostat 0.4 mg sublingually as needed for chest pain. 6. Hyperlipidemia: Continue atorvastatin 40 minutes by mouth daily. 7. Diabetes mellitus: The patient is nothing by mouth.Will monitor patient with fingersticks every 6 hours, hypoglycemic protocol. Hold insulin coverage for the time being until patient has resumed a diet. Will provide gentle intravenous fluid resuscitation with normal saline at 50 mLs per hour. 8. Acute on chronic kidney disease, stage III: Baseline creatinine appears to be around 1.5. Creatinine currently is 1.76. Holding nephrotoxic agents at this time. Monitor with daily labs. Continue calcitriol 0.25 g by mouth on Tuesday, Tuesday, and Tuesday. 9. Gout: Continue Uloric 80 mg by mouth daily. Attestation: I have supervised the medical services assistant and discussed patients evaluation and medical management. I agree with the outlined management plan as documented in the residents note. Dr. oLmbardi 04/15/2018 Disposition Admit: Progressive care unit Anticipated hospitalization: 2 nights Attending: Dr. Donovan IVF: Initiate (normal saline and 50 mLs per hour for 12 hours) Diet: Make NPO (advance diet as tolerated in the morning) Activity: Continue Current Therapy: PT Diagnostics: Check Labs, Repeat Labs in AM, CT (abdomen and pelvis without contrast) Anticipated Discharge: Home ANTIONETTE RIGGS DO Apr 14, 2018 15:31 ARLETTE LOMBARDI MD Apr 15, 2018 16:43
[2018-04-14] MEDS: ISOSORBIDE DIN. (ISORDIL) 30 MG TAB PO SCH ×2 (16:00→21:01)
[2018-04-14] MEDS ORDERED: HumaLOG INSULIN (NovoLOG) PER UNIT SC SCH ×2 (17:30→21:00)
[2018-04-14 18:45] VITALS: BP 147/63
[2018-04-14 20:00] VITALS: BP_SYST 150; BP_DIAS 58; BP_DIAS 60
[2018-04-14] MEDS: CARVedilol 6.25 MG TAB PO SCH (21:00)
[2018-04-14] MEDS: CALCITRIOL 0.25 MCG CAP (S0169) PO SCH (21:00)
[2018-04-14] MEDS: APIXABAN 2.5 MG TAB (ELIQUIS) PO SCH (21:00)
[2018-04-14] MEDS ORDERED: LEVEMIR (INSULIN DETEMIR) 1 UNITS/0.01ML SC SCH (21:00)
[2018-04-14] MEDS: FEBUXOSTAT 40 MG TABLET (ULORIC) PO SCH (21:01)
[2018-04-14] MEDS: ATORVASTATIN 20 MG TAB PO SCH (21:01)
[2018-04-14] MEDS: ASPIRIN 81 MG ENTERIC TAB PO SCH (21:01)
[2018-04-15] VITALS: BP 140/62
[2018-04-15 04:00] VITALS: BP_SYST 130; BP_DIAS 60; BP_DIAS 70
[2018-04-15 05:21] LABS: HEMATOCRIT 27.5 % (42.0-52.0); HEMOGLOBIN 8.1 g/dl (13.5-17.5); MEAN CORPUSCULAR HEMOGLOBIN 23.2 pg (27.0-33.0); MEAN CORPUSCULAR HGB CONC 29.5 g/dl (32.0-36.5); MEAN CORPUSCULAR VOLUME 78.8 fl (80.0-96.0); PLATELET COUNT, AUTOMATED 130 10^3/uL (150-450); RED BLOOD COUNT 3.49 10^6/uL (4.30-6.10); WHITE BLOOD COUNT 5.2 10^3/uL (4.0-10.0)
[2018-04-15 05:52] LABS: BLOOD UREA NITROGEN 56 MG/DL (7-18); CALCIUM LEVEL 8.2 MG/DL (8.8-10.2); CARBON DIOXIDE LEVEL 22 MEQ/L (21-32); CHLORIDE LEVEL 114 MEQ/L (98-107); CREATININE FOR GFR 1.56 MG/DL (0.70-1.30); GLOMERULAR FILTRATION RATE 46.7 (>42); GLUCOSE, FASTING 140 MG/DL (70-100); POTASSIUM SERUM 3.5 MEQ/L (3.5-5.1); SODIUM LEVEL 144 MEQ/L (136-145)
[2018-04-15 08:00] VITALS: BP 148/70
[2018-04-15] MEDS ORDERED: POTASSIUM CHLORIDE 10 MEQ SR TABLET PO ONE (08:00)
[2018-04-15] MEDS ORDERED: DEXTROSE 50% 50 ML SYRINGE IV PRN (08:15)
[2018-04-15] MEDS ORDERED: LEVEMIR (INSULIN DETEMIR) 1 UNITS/0.01ML SC SCH (09:00)
[2018-04-15] MEDS: AQUAPHOR **100GM** OINT TOP SCH (09:00)
[2018-04-15] MEDS: FEBUXOSTAT 40 MG TABLET (ULORIC) PO SCH (09:14)
[2018-04-15] MEDS: ISOSORBIDE DIN. (ISORDIL) 30 MG TAB PO SCH ×3 (09:15→21:14)
[2018-04-15] MEDS: APIXABAN 2.5 MG TAB (ELIQUIS) PO SCH ×2 (09:15→21:15)
[2018-04-15] MEDS: CARVedilol 6.25 MG TAB PO SCH ×2 (09:16→21:15)
[2018-04-15] MEDS: ASPIRIN 81 MG ENTERIC TAB PO SCH (09:16)
[2018-04-15] MEDS: ATORVASTATIN 20 MG TAB PO SCH (09:16)
[2018-04-15] MEDS: MULTIVITAMINS/MINERALS THERAP 1 TAB PO SCH (09:16)
[2018-04-15] MEDS: LEVEMIR (INSULIN DETEMIR) 1 UNITS/0.01ML SC SCH ×2 (09:17→21:15)
[2018-04-15 09:23] LABS: CK-MB VALUE MASS < 1.0 NG/ML (<3.6); CPK CREATINE PHOSPHOKINASE 21 U/L (39-308); MB/CK RELATIVE INDEX 4.76 (< OR =4); TROPONIN I 0.02 NG/ML (< 0.10)
[2018-04-15] MEDS: ENTRESTO 49-51MG TABLET (SACUBITRIL/VALSARTAN) PO SCH ×2 (10:07→21:14)
[2018-04-15 12:00] VITALS: BP 141/68
[2018-04-15] MEDS: HumaLOG INSULIN (NovoLOG) PER UNIT SC SCH ×3 (12:43→21:00)
[2018-04-15] MEDS: ACETAMINOPHEN TAB 650MG DOSE (2X325MG) PO PRN (15:27)
[2018-04-15 16:00] VITALS: BP 130/65
--- NOTE | 2018-04-15 17:22 | ECGEPIP ---
Stationary ECG Study [facility] - ED Test Date: 2018-04-14 Pat Name: KYA WEST Department: Room: - Gender: M High Value Associate: manolo : 1945 Requested By: BRIDGET Mansfield Order Number: [id number] Reading MD: Ann Retana Measurements Intervals Wister Rate: 102 P: LA: 0 QRS: -51 QRSD: 140 T: 133 QT: 398 QTc: 519 Interpretive Statements ATRIAL FIBRILLATION WITH RAPID VENTRICULAR RESPONSE MARKED LEFT AXIS DEVIATION LEFT BUNDLE BRANCH BLOCK INCREASED RATE 02/23/18 Electronically Signed On 04-15-2018 17:22:07 EST by Ann Retana
--- NOTE | 2018-04-15 18:04 | IPN ---
DATE: 04/15/2018 Patient seen and examined. No acute events overnight. Reported diarrhea has resolved. Reported general weakness has also resolved. Reported almost back to baseline. Denies any fevers, chills, chest pain, pressure, or discomfort. VITAL SIGNS: Temperature 98.9, pulse 98, respirations 18, blood pressure 130/65, pulse oximetry 92% on room air. LABORATORY DATA: WBC 5.2, hemoglobin and hematocrit 8.1/27.5, platelets 130. Chemistry: Sodium 144, potassium 3.5, chloride 114, bicarbonate 22, BUN 56, creatinine 1.56. Cardiac enzymes negative times two. PHYSICAL EXAMINATION: GENERAL: Patient alert, comfortable, in no acute distress. HEENT: Normocephalic, atraumatic. PULMONARY: Bilateral clear. CARDIAC: Irregular, S1, S2, tachycardia. ABDOMEN: Soft, positive bowel sounds, nontender. EXTREMITIES: Bilateral lower extremities chronic venous stasis ulcers, minimal drainage, minimal swelling, pulses intact. ASSESSMENT AND PLAN: This is a 72-year-old male patient with underlying medical history of atrial fibrillation, diastolic and systolic congestive heart failure, ejection fraction 35-40%, coronary artery disease, hypertension, diabetes mellitus, chronic kidney disease (CKD) stage III, gout, lumbar degenerative disc disease with stenosis and radiculopathy, history of colon cancer, history of skin cancer, mitral insufficiency, iron deficiency anemia, and dyslipidemia presented with generalized weakness and diarrhea. 1. Diarrhea. Currently has resolved. Will get gastrointestinal (GI) studies. Initially given IV fluids. Will monitor clinically. No leukocytosis. Did not give antibiotics. Diet as tolerated. 2. Generalized weakness. IV fluids have been given. Physical therapy. Diet as tolerated. 3. Diastolic and systolic congestive heart failure. Ejection fraction 35-40%. Diuretics on hold. Fluid has been discontinued. Will restart diuretics tomorrow and continue Entresto. Continue aspirin, continue statin, continue beta masood, continue Eliquis. 4. Chronic atrial fibrillation. Continue Eliquis, continue beta masood. Telemetry monitoring. 5. Diabetes. Basal bolus insulin. Hypoglycemic protocol. Levemir at reduced dose, advance as needed. 6. Bilateral lower extremities venous stasis ulcers. Wound care as ordered. Outpatient followup with Dr. Jacobsen. 7. Acute on chronic renal insufficiency, chronic kidney disease (CKD) stage III at baseline. Currently returning to baseline. Continue current medication. 8. Gout. Continue current medication. 9. Coronary artery disease. Continue aspirin, beta masood, statin, Entresto, Isordil. 10. History of mitral valve disease. Outpatient followup. 11. History of iron deficiency anemia. Likely worsening anemia due to dilutional. Will monitor clinically, transfuse as needed. Patient has had workup in the past which includes multiple fecal occult that have been negative. Will monitor clinically. 12. Deep venous thrombosis (DVT) prophylaxis. Patient on Eliquis. DISPOSITION: Pending physical therapy (PT), clinical improvement. Monitor hemoglobin and hematocrit.
[2018-04-15] MEDS: TORSEMIDE 20 MG TAB PO SCH (18:09)
[2018-04-15] MEDS: SPIRONOLACTONE 12.5MG PER 1/2 TABLET PO SCH (18:09)
[2018-04-15 20:00] VITALS: BP_SYST 130; BP_SYST 140; BP_DIAS 60; BP_DIAS 70
[2018-04-15] MEDS: SLF 3 ML SYR IV SCH (21:16)
[2018-04-16] VITALS (7 sets, daily range): BP systolic 100–184; BP diastolic 60–87
[2018-04-16] MEDS: ACETAMINOPHEN TAB 650MG DOSE (2X325MG) PO PRN ×2 (00:51→12:32)
[2018-04-16 05:16] LABS: HEMATOCRIT 26.6 % (42.0-52.0); HEMOGLOBIN 7.9 g/dl (13.5-17.5); MEAN CORPUSCULAR HEMOGLOBIN 23.1 pg (27.0-33.0); MEAN CORPUSCULAR HGB CONC 29.7 g/dl (32.0-36.5); MEAN CORPUSCULAR VOLUME 77.8 fl (80.0-96.0); PLATELET COUNT, AUTOMATED 129 10^3/uL (150-450); RED BLOOD COUNT 3.42 10^6/uL (4.30-6.10); WHITE BLOOD COUNT 5.4 10^3/uL (4.0-10.0)
[2018-04-16] MEDS: SLF 3 ML SYR IV SCH ×3 (05:21→21:28)
[2018-04-16 05:43] LABS: CALCIUM LEVEL 7.9 MG/DL (8.8-10.2); CREATININE FOR GFR 1.54 MG/DL (0.70-1.30); GLOMERULAR FILTRATION RATE 47.4 (>42); POTASSIUM SERUM 3.7 MEQ/L (3.5-5.1)
[2018-04-16 05:44] LABS: MAGNESIUM LEVEL 1.9 MG/DL (1.8-2.4)
[2018-04-16] MEDS: HumaLOG INSULIN (NovoLOG) PER UNIT SC SCH ×4 (07:30→20:57)
[2018-04-16] MEDS: CARVedilol 6.25 MG TAB PO SCH ×2 (08:46→20:56)
[2018-04-16] MEDS: TORSEMIDE 20 MG TAB PO SCH (08:46)
[2018-04-16] MEDS: APIXABAN 2.5 MG TAB (ELIQUIS) PO SCH ×2 (08:47→20:57)
[2018-04-16] MEDS: LEVEMIR (INSULIN DETEMIR) 1 UNITS/0.01ML SC SCH ×2 (08:48→20:56)
[2018-04-16] MEDS: MULTIVITAMINS/MINERALS THERAP 1 TAB PO SCH (08:48)
[2018-04-16] MEDS: ATORVASTATIN 20 MG TAB PO SCH (08:48)
[2018-04-16] MEDS: FEBUXOSTAT 40 MG TABLET (ULORIC) PO SCH (08:48)
[2018-04-16] MEDS: AQUAPHOR **100GM** OINT TOP SCH (08:49)
[2018-04-16] MEDS: ENTRESTO 49-51MG TABLET (SACUBITRIL/VALSARTAN) PO SCH ×2 (08:49→20:55)
[2018-04-16] MEDS: ASPIRIN 81 MG ENTERIC TAB PO SCH (08:49)
[2018-04-16] MEDS: ISOSORBIDE DIN. (ISORDIL) 30 MG TAB PO SCH (08:49)
[2018-04-16] MEDS: SPIRONOLACTONE 12.5MG PER 1/2 TABLET PO SCH (08:49)
[2018-04-16] MEDS: traMADol 50 MG TAB PO PRN ×2 (12:15→20:57)
[2018-04-16] MEDS: ISOSORBIDE DIN (ISORDIL) 10 MG TAB PO SCH ×2 (13:14→17:16)
--- NOTE | 2018-04-16 17:10 | IPNPDOC ---
Text Note Date of Service The patient was seen on 04/16/18. NOTE Patient seen and examined. No acute events overnight. Reported generalized weakness. No further diarrhea. Denies any fevers, chills, chest pain, pressure, or discomfort. PHYSICAL EXAMINATION: GENERAL: Patient alert, comfortable, in no acute distress. HEENT: Normocephalic, atraumatic. PULMONARY: Bilateral clear. CARDIAC: Irregular, S1, S2, tachycardia. ABDOMEN: Soft, positive bowel sounds, nontender. EXTREMITIES: Bilateral lower extremities chronic venous stasis ulcers, minimal drainage, minimal swelling, pulses intact. ASSESSMENT AND PLAN: This is a 72-year-old male patient with underlying medical history of atrial fibrillation, diastolic and systolic congestive heart failure, ejection fraction 35-40%, coronary artery disease, hypertension, diabetes mellitus, chronic kidney disease (CKD) stage III, gout, lumbar degenerative disc disease with stenosis and radiculopathy, history of colon cancer, history of skin cancer, mitral insufficiency, iron deficiency anemia, and dyslipidemia presented with generalized weakness and diarrhea. 1. Diarrhea. Currently has resolved. Will get gastrointestinal (GI) studies if additional diarrhea. Initially given IV fluids. Will monitor clinically. No leukocytosis. Did not give antibiotics. Diet as tolerated. 2. Fever- cultures ordered. monitor. no wbc elevation. 2. Generalized weakness. IV fluids have been given. Physical therapy. Diet as tolerated. PT 3. Diastolic and systolic congestive heart failure. Ejection fraction 35-40%. Diuretics on hold. Fluid has been discontinued. continue Entresto. Continue aspirin, continue statin, continue beta masood, continue Eliquis. torsemide at reduced dose. spirolactone 4. Chronic atrial fibrillation. Continue Eliquis, continue beta masood. Telemetry monitoring. 5. Diabetes. Basal bolus insulin. Hypoglycemic protocol. Levemir at reduced dose, advance as needed. 6. Bilateral lower extremities venous stasis ulcers. Wound care as ordered. Outpatient followup with Dr. Jacobsen. 7. Acute on chronic renal insufficiency, chronic kidney disease (CKD) stage III at baseline. Currently returning to baseline. Continue current medication. 8. Gout. Continue current medication. 9. Coronary artery disease. Continue aspirin, beta masood, statin, Entresto, Isordil. 10. History of mitral valve disease. Outpatient followup. 11. History of iron deficiency anemia. Likely worsening anemia due to dilutional. Will monitor clinically, anemia workup ordered, 1 U pRBC. Patient has had workup in the past which includes multiple fecal occult that have been negative. Will monitor clinically. colonoscopy in [place] last year. 12. Deep venous thrombosis (DVT) prophylaxis. Patient on Eliquis. DISPOSITION: Pending physical therapy (PT), clinical improvement. Monitor hemoglobin and hematocrit. VS,Fishbone, I+O VS, Fishbone, I+O Laboratory Tests 04/16/18 04:48 Red Blood Count 3.42 L, Mean Corpuscular Volume 77.8 L, Mean Corpuscular Hemoglobin 23.1 L, Mean Corpuscular Hemoglobin Concent 29.7 L, Red Cell Distribution Width 16.9 H, Calcium Level 7.9 L Vital Signs Date Time Temp Pulse Resp B/P (MAP) Pulse Ox O2 Delivery O2 Flow Rate FiO2 04/16/18 16:00 2.0 04/16/18 16:00 100.1 88 17 144/73 (96) 94 Room Air I&O- Last 24 Hours up to 6 AM 04/16/18 06:00 Intake Total 960 ml Output Total 0 ml Balance 960 ml DARY LUNDBERG MD Apr 16, 2018 17:10
[2018-04-16 17:28] LABS: HEMATOCRIT 28.3 % (42.0-52.0); HEMOGLOBIN 8.6 g/dl (13.5-17.5)
[2018-04-16 17:52] LABS: C REACTIVE PROTEIN QUANTITATIV 7.75 MG/DL (0.00-0.30)
[2018-04-16] MEDS: ANALGESIC BALM CRM 120 GM TOP PRN (18:28)
[2018-04-17] VITALS (8 sets, daily range): BP systolic 121–179; BP diastolic 61–83
[2018-04-17] MEDS: ANALGESIC BALM CRM 120 GM TOP PRN (01:16)
[2018-04-17] MEDS: traMADol 50 MG TAB PO PRN (04:53)
[2018-04-17] MEDS: SLF 3 ML SYR IV SCH ×3 (05:01→21:08)
[2018-04-17 05:30] LABS: HEMATOCRIT 27.8 % (42.0-52.0); HEMOGLOBIN 8.4 g/dl (13.5-17.5); MEAN CORPUSCULAR HEMOGLOBIN 23.3 pg (27.0-33.0); MEAN CORPUSCULAR HGB CONC 30.2 g/dl (32.0-36.5); PLATELET COUNT, AUTOMATED 132 10^3/uL (150-450); RED BLOOD COUNT 3.61 10^6/uL (4.30-6.10); WHITE BLOOD COUNT 5.5 10^3/uL (4.0-10.0)
[2018-04-17 05:39] LABS: CALCIUM LEVEL 8.2 MG/DL (8.8-10.2); CREATININE FOR GFR 1.46 MG/DL (0.70-1.30); GLOMERULAR FILTRATION RATE 50.4 (>42); POTASSIUM SERUM 4.1 MEQ/L (3.5-5.1)
[2018-04-17] MEDS: APIXABAN 2.5 MG TAB (ELIQUIS) PO SCH ×2 (08:44→21:07)
[2018-04-17] MEDS: TORSEMIDE 20 MG TAB PO SCH (08:45)
[2018-04-17] MEDS: ASPIRIN 81 MG ENTERIC TAB PO SCH (08:45)
[2018-04-17] MEDS: ATORVASTATIN 20 MG TAB PO SCH (08:45)
[2018-04-17] MEDS: MULTIVITAMINS/MINERALS THERAP 1 TAB PO SCH (08:45)
[2018-04-17] MEDS: CARVedilol 6.25 MG TAB PO SCH ×2 (08:45→21:07)
[2018-04-17] MEDS: SENOKOT S TAB PO SCH ×2 (08:46→21:00)
[2018-04-17] MEDS: FEBUXOSTAT 40 MG TABLET (ULORIC) PO SCH (08:46)
[2018-04-17] MEDS: CALCITRIOL 0.25 MCG CAP (S0169) PO SCH (08:46)
[2018-04-17] MEDS: ENTRESTO 49-51MG TABLET (SACUBITRIL/VALSARTAN) PO SCH ×2 (08:46→21:07)
[2018-04-17] MEDS: SPIRONOLACTONE 12.5MG PER 1/2 TABLET PO SCH (08:46)
[2018-04-17] MEDS: ASCORBIC ACID 500 MG TAB PO SCH ×2 (08:47→21:07)
[2018-04-17] MEDS: HumaLOG INSULIN (NovoLOG) PER UNIT SC SCH ×4 (08:47→20:58)
[2018-04-17] MEDS: FERROUS SULFATE 325MG TAB PO SCH ×2 (08:47→21:06)
[2018-04-17] MEDS: AQUAPHOR **100GM** OINT TOP SCH (08:48)
[2018-04-17] MEDS: LEVEMIR (INSULIN DETEMIR) 1 UNITS/0.01ML SC SCH ×2 (08:48→21:06)
[2018-04-17] MEDS: ISOSORBIDE DIN (ISORDIL) 10 MG TAB PO SCH ×3 (09:01→18:40)
[2018-04-17 10:08] LABS: FOLATE 10.4 NG/ML (>5.4)
--- NOTE | 2018-04-17 11:23 | PHACANCOPD ---
PHARMACY VANCOMYCIN DOSING Pt Demographics Demographics Patient Age:72 , Weight:92.700 , Gender: male Adjusted Body Weight Date: 04/17/18, Adjusted Body Weight: Kg Events Past 24 Hours Events Past 24 Hours: YES: Fever, Pending Diagnostics Vancomycin Vancomycin indication: BACTEREMIA Vancomycin Target Ranges: 15-20 mcg/ml Vancomycin Load Y/N: Yes Load Dose Date Time Vancomycin Load Dose: 2g total Date: 04/17/18 Time: 1g@12, 1g@18 Vancomycin Dose Date: 04/17/18. Current Vancomycin Dose: [1g IV Q18H] Intermittent Dosing?: No Labs Labs Item Value Date Time White Blood Count 5.5 10^3/uL 04/17/18 0427 White Blood Count 5.4 10^3/uL 04/16/18 0448 White Blood Count 5.2 10^3/uL 04/15/18 0511 White Blood Count 7.2 10^3/uL 04/14/18 1129 Blood Urea Nitrogen 52 MG/DL H 04/17/18 0427 Creatinine 1.46 MG/DL H 04/17/18 0427 Blood Urea Nitrogen 55 MG/DL H 04/16/18 0448 Creatinine 1.54 MG/DL H 04/16/18 0448 Blood Urea Nitrogen 56 MG/DL H 04/15/18 0511 Creatinine 1.56 MG/DL H 04/15/18 0511 Blood Urea Nitrogen 58 MG/DL H 04/14/18 1129 Creatinine 1.76 MG/DL H 04/14/18 1129 C-Reactive Protein, Quantitative 7.75 MG/DL H 04/16/18 1710 Micro Microbiology 04/17/18 Blood Culture, Received Pending 04/16/18 Blood Culture - Preliminary, Resulted 04/16/18 Blood Culture - Preliminary, Resulted Creatinine Clearance Date:04/17/18. Est Creatinine Clearance: [~45ml/min]. Pending Labs Vancomycin trough level scheduled 04/19/18 @1700 Assessment and Plan Maintaining Current Dose?: Yes Reason for dose change: No Dose Change Pharmacist Note Pharmacist Note Date: 04/17/18. Pharmacist note: Day #1 empiric vancomycin therapy initiated with a 2g loading dose, followed by a maintenance regimen of 1g IV Q18H for the treatment of bacteremia (preliminary blood cultures are growing gram positive cocci in pairs and chains) - aiming for a goal trough of 15-20mcg/ml. The patient has a PMH of CKD stage III and was found to be in JENN[facility]ER on admit. Because of this I have spaced out her initial loading dose so that not all 2g is given at once. Her scr is 1.46 today from 1.76 on admit (baseline scr ~1.5). She has a PMH of T2DM with bilateral LE venous stasis ulcers. WBC is WNL, however she has been febrile within the past 24hours, and CRP is also elevated. No PMH of MRSA or vanco use here at [facility]. Repeat blood cultures are pending. A vancomycin trough level has been scheduled for 04/19/18 @1700. We will continue to monitor renal function and adjust dosing if needed. VARGAS TRACEY [facility]ARM[facility] Apr 17, 2018 11:23
--- NOTE | 2018-04-17 12:15 | REP ---
Clinical: Back pain. Technique: AP, lateral, bilateral oblique and coned-down views of the lumbosacral spine. Findings: Alignment and lordosis maintained. Moderate multilevel degenerative disc osteophyte complexes noted throughout the visualized lower thoracic and lumbosacral spine. Findings include endplate sclerosis, disc space narrowing, osteophyte formation and hypertrophic facet changes. No acute fracture / compression injury or subluxation. Atherosclerotic changes to the aorta. Impression: Moderate multilevel degenerative disc osteophyte complexes. No acute fracture / compression injury or subluxation. Electronically Signed by Amandeep Donnelly MD 04/17/2018 12:07 P
[2018-04-17] MEDS: CEFEPIME HCL 1 GM in D5W MINI-BAG PLUS 50 ML IV SCH ×2 (12:19→23:34)
[2018-04-17] MEDS: VANCOMYCIN HCL 1,000 MG, VIAL MATE ADAPTER 1 EACH in D5W 250 ML IV SCH (13:20)
--- NOTE | 2018-04-17 14:50 | REP ---
CT LUMBAR SPINE WITHOUT CONTRAST: HISTORY: Back pain. COMPARISON: 12/21/2014 A diffuse disc bulge is present at the L1-2 level. There is minimal compression of the thecal sac. There is hypertrophy of the posterior articulating facets. The L1 nerves exit the neural foramina without compression. A diffuse disc bulge is present at the L2-3 level. There is hypertrophy of the ligamenta flava and posterior articulating facets. These findings produce mild central canal stenosis. The L2 nerves exit the neural foramina without compression. A diffuse disc bulge is present at the L3-4 level. There is hypertrophy of the ligamenta flava and posterior articulating facets. These findings produce moderate central canal stenosis. The L3 nerves exit the neural foramina without compression. A diffuse disc bulge is present at the L4-5 level. There is hypertrophy of the ligamenta flava and posterior articulating facets. These findings produce moderate central canal stenosis. There is compression of the right L4 nerve in the neural foramen. The left L4 nerve exits the neural foramen without compression. A diffuse disc bulge is present at the L5-S1 level. There is minimal compression of the thecal sac. There is hypertrophy of the posterior articulating facets. There is compression of the L5 nerves in the neural foramina. The lumbar intervertebral discs are decreased in height, consistent with disc degeneration. There is no subluxation. A 1.4 cm nodule is present in the left adrenal gland. IMPRESSION: 1. Diffuse disc bulges at the L1-2 and L5-S1 levels with minimal thecal sac compression. There is compression of the L5 nerves in the neural foramina. 2. Mild central canal stenosis at the L2-3 level secondary to disc bulge, ligamentous and facet hypertrophy. 3. Moderate central canal stenosis at the L3-4 and L4-5 levels secondary to disc bulge, ligamentous and facet hypertrophy. There is compression of the right L4 nerve in the neural foramen. There is no significant change compared to the previous study. Electronically Signed by Eddy Tong MD 04/17/2018 02:52 P
--- NOTE | 2018-04-17 17:54 | IPNPDOC ---
Text Note Date of Service The patient was seen on 04/17/18. NOTE patient seen and examined. No acute events overnight. Reported continued generalized weakness. intermitent fever. No further diarrhea. Denies any fevers, chills, chest pain, pressure, or discomfort. PHYSICAL EXAMINATION: GENERAL: Patient alert, comfortable, in no acute distress. HEENT: Normocephalic, atraumatic. PULMONARY: Bilateral clear. CARDIAC: Irregular, S1, S2 . ABDOMEN: Soft, positive bowel sounds, nontender. EXTREMITIES: Bilateral lower extremities chronic venous stasis ulcers, minimal drainage, minimal swelling, pulses intact. ASSESSMENT AND PLAN: This is a 72-year-old male patient with underlying medical history of atrial fibrillation, diastolic and systolic congestive heart failure, ejection fraction 35-40%, coronary artery disease, hypertension, diabetes mellitus, chronic kidney disease (CKD) stage III, gout, lumbar degenerative disc disease with stenosis and radiculopathy, history of colon cancer, history of skin cancer, mitral insufficiency, iron deficiency anemia, and dyslipidemia presented with generalized weakness and diarrhea. 1. Diarrhea. Currently has resolved. gastrointestinal (GI) studies if additional diarrhea. Initially given IV fluids. Will monitor clinically. No leukocytosis. Diet as tolerated. 2. Fever- with gram positive bacteremia. UA neg, f/u cultures, cefepime and vanco 3. back pain with spinal stenosis and degenerative disc disease. pain medication. CT lumbar appreciated. 4. Generalized weakness. IV fluids have been given. Physical therapy. Diet as tolerated. PT 5. Diastolic and systolic congestive heart failure. Ejection fraction 35-40%. Diuretics on hold. Fluid has been discontinued. continue Entresto. Continue aspirin, continue statin, continue beta masood, continue Eliquis. torsemide at reduced dose. spirolactone 6. Chronic atrial fibrillation. Continue Eliquis, continue beta masood. Telemetry monitoring. 7. Diabetes. Basal bolus insulin. Hypoglycemic protocol. Levemir at reduced dose, advance as needed. 8. Bilateral lower extremities venous stasis ulcers. Wound care as ordered. Outpatient followup with Dr. Jacobsen. 9. Acute on chronic renal insufficiency, chronic kidney disease (CKD) stage III at baseline. Currently returning to baseline. Continue current medication. 10. Gout. Continue current medication. 11. Coronary artery disease. Continue aspirin, beta masood, statin, Entresto, Isordil. 12. History of mitral valve disease. Outpatient followup. 13. History of iron deficiency anemia. Likely worsening anemia due to dilutional. Will monitor clinically, anemia workup ordered, iron supplement. Patient has had workup in the past which includes multiple fecal occult that have been negative. Will monitor clinically. colonoscopy in [place] last year. HH improved without transfusion, transfusion consent 14. Deep venous thrombosis (DVT) prophylaxis. Patient on Eliquis. DISPOSITION: Pending physical therapy (PT), clinical improvement. f/u cultures VS,Fishbone, I+O VS, Fishbone, I+O Laboratory Tests 04/17/18 04:27 Red Blood Count 3.61 L, Mean Corpuscular Volume 77.0 L, Mean Corpuscular Hemoglobin 23.3 L, Mean Corpuscular Hemoglobin Concent 30.2 L, Red Cell Distribution Width 17.0 H, Calcium Level 8.2 L Vital Signs Date Time Temp Pulse Resp B/P (MAP) Pulse Ox O2 Delivery O2 Flow Rate FiO2 04/17/18 16:00 100.1 95 18 143/79 (100) 95 Nasal Cannula 2.0 I&O- Last 24 Hours up to 6 AM 04/17/18 06:00 Intake Total 840 ml Output Total 0 ml Balance 840 ml DARY LUNDBERG MD Apr 17, 2018 17:54
[2018-04-17] MEDS ORDERED: VANCOMYCIN HCL 1,000 MG, VIAL MATE ADAPTER 1 EACH in D5W 250 ML IV ONE (18:00)
[2018-04-18] VITALS: BP 149/80
[2018-04-18] MEDS: SLF 3 ML SYR IV SCH ×3 (05:03→21:42)
[2018-04-18 05:45] LABS: HEMATOCRIT 29.8 % (42.0-52.0); HEMOGLOBIN 8.8 g/dl (13.5-17.5); MEAN CORPUSCULAR HEMOGLOBIN 22.9 pg (27.0-33.0); MEAN CORPUSCULAR HGB CONC 29.5 g/dl (32.0-36.5); MEAN CORPUSCULAR VOLUME 77.6 fl (80.0-96.0); PLATELET COUNT, AUTOMATED 141 10^3/uL (150-450); RED BLOOD COUNT 3.84 10^6/uL (4.30-6.10); WHITE BLOOD COUNT 8.3 10^3/uL (4.0-10.0)
[2018-04-18 06:14] LABS: CALCIUM LEVEL 8.4 MG/DL (8.8-10.2); CREATININE FOR GFR 1.47 MG/DL (0.70-1.30); POTASSIUM SERUM 4.1 MEQ/L (3.5-5.1)
[2018-04-18] MEDS: VANCOMYCIN HCL 1,000 MG, VIAL MATE ADAPTER 1 EACH in D5W 250 ML IV SCH (06:21)
[2018-04-18] MEDS: HumaLOG INSULIN (NovoLOG) PER UNIT SC SCH ×4 (07:30→21:00)
[2018-04-18 08:00] VITALS: BP 132/72
[2018-04-18] MEDS: LEVEMIR (INSULIN DETEMIR) 1 UNITS/0.01ML SC SCH ×2 (08:35→20:55)
[2018-04-18] MEDS: ASCORBIC ACID 500 MG TAB PO SCH ×2 (08:36→20:57)
[2018-04-18] MEDS: AQUAPHOR **100GM** OINT TOP SCH (08:36)
[2018-04-18] MEDS: CARVedilol 6.25 MG TAB PO SCH ×2 (08:36→20:58)
[2018-04-18] MEDS: APIXABAN 2.5 MG TAB (ELIQUIS) PO SCH ×2 (08:36→20:58)
[2018-04-18] MEDS: SPIRONOLACTONE 12.5MG PER 1/2 TABLET PO SCH (08:37)
[2018-04-18] MEDS: SENOKOT S TAB PO SCH ×4 (08:37→21:00)
[2018-04-18] MEDS: ENTRESTO 49-51MG TABLET (SACUBITRIL/VALSARTAN) PO SCH ×2 (08:37→21:25)
[2018-04-18] MEDS: ATORVASTATIN 20 MG TAB PO SCH (08:37)
[2018-04-18] MEDS: TORSEMIDE 20 MG TAB PO SCH (08:37)
[2018-04-18] MEDS: FERROUS SULFATE 325MG TAB PO SCH ×2 (08:37→20:57)
[2018-04-18] MEDS: ASPIRIN 81 MG ENTERIC TAB PO SCH (08:37)
[2018-04-18] MEDS: FEBUXOSTAT 40 MG TABLET (ULORIC) PO SCH (08:37)
[2018-04-18] MEDS: MULTIVITAMINS/MINERALS THERAP 1 TAB PO SCH (08:37)
[2018-04-18] MEDS: ANALGESIC BALM CRM 120 GM TOP PRN ×2 (08:40→20:59)
[2018-04-18] MEDS: traMADol 50 MG TAB PO PRN (09:02)
[2018-04-18] MEDS: ISOSORBIDE DIN (ISORDIL) 10 MG TAB PO SCH ×3 (10:27→18:19)
[2018-04-18 12:00] VITALS: BP 139/80
[2018-04-18] MEDS: CEFEPIME HCL 1 GM in D5W MINI-BAG PLUS 50 ML IV SCH (12:00)
[2018-04-18] MEDS: MORPHINE 4 MG/ML 1ML VIAL/SYRINGE (J2270) IV PRN ×2 (12:04→18:19)
[2018-04-18] MEDS: LIDOCAINE 5% OINT 30 GM TOP SCH (15:28)
[2018-04-18 16:00] VITALS: BP 140/64
--- NOTE | 2018-04-18 17:35 | IPNPDOC ---
Text Note Date of Service The patient was seen on 04/18/18. NOTE patient seen and examined. No acute events overnight. Reported continued generalized weakness. Poor PO intake. reported back pain. No further diarrhea. Denies any fevers, chills, chest pain, pressure, or discomfort. PHYSICAL EXAMINATION: GENERAL: Patient alert, comfortable, in no acute distress. HEENT: Normocephalic, atraumatic. PULMONARY: Bilateral clear. CARDIAC: Irregular, S1, S2 . ABDOMEN: Soft, positive bowel sounds, nontender. EXTREMITIES: Bilateral lower extremities chronic venous stasis ulcers, crusting, minimal drainage, minimal swelling, pulses intact. ASSESSMENT AND PLAN: This is a 72-year-old male patient with underlying medical history of atrial fibrillation, diastolic and systolic congestive heart failure, ejection fraction 35-40%, coronary artery disease, hypertension, diabetes mellitus, chronic kidney disease (CKD) stage III, gout, lumbar degenerative disc disease with stenosis and radiculopathy, history of colon cancer, history of sk in cancer, mitral insufficiency, iron deficiency anemia, and dyslipidemia presented with generalized weakness and diarrhea. 1. Diarrhea. Currently has resolved. gastrointestinal (GI) studies if ad ditional diarrhea. Initially given IV fluids. Will monitor clinically. No leukocytosis. Diet as tolerated. 2. Fever- with gram positive bacteremia. UA neg, f/u cultures, cefepime and vanco, ID consult, h/o cholecystitis, US abd, liver function. 3. back pain with spinal stenosis and degenerative disc disease. pain medication. CT lumbar appreciated. 4. Generalized weakness. IV fluids have been given. Physical therapy. Diet as tolerated. PT 5. Diastolic and systolic congestive heart failure. Ejection fraction 35-40%. Diuretics on hold. Fluid has been discontinued. continue Entresto. Continue aspirin, continue statin, continue beta masood, continue Eliquis. torsemide at reduced dose. spirolactone 6. Chronic atrial fibrillation. Continue Eliquis, continue beta masood. Telemetry monitoring. 7. Diabetes. Basal bolus insulin. Hypoglycemic protocol. Levemir at reduced dose, advance as needed. 8. Bilateral lower extremities venous stasis ulcers. Wound care as ordered. Outpatient followup with Dr. Jacobsen. 9. Acute on chronic renal insufficiency, chronic kidney disease (CKD) stage III at baseline. Currently returning to baseline. Continue current medication. 10. Gout. Continue current medication. 11. Coronary artery disease. Continue aspirin, beta masood, statin, Entresto, Isordil. 12. History of mitral valve disease. Outpatient followup. 13. History of iron deficiency anemia. Likely worsening anemia due to dilutional. Will monitor clinically, anemia workup ordered, iron supplement. Patient has had workup in the past which includes multiple fecal occult that have been negative. Will monitor clinically. colonoscopy in [place] last year. HH improved without transfusion, transfusion consent 14. Deep venous thrombosis (DVT) prophylaxis. Patient on Eliquis. DISPOSITION: Pending physical therapy (PT), clinical improvement. f/u cultures, further workup VS,Fishbone, I+O VS, Fishbone, I+O Laboratory Tests 04/18/18 05:22 Red Blood Count 3.84 L, Mean Corpuscular Volume 77.6 L, Mean Corpuscular Hemoglobin 22.9 L, Mean Corpuscular Hemoglobin Concent 29.5 L, Red Cell Distribution Width 17.0 H, Calcium Level 8.4 L Vital Signs Date Time Temp Pulse Resp B/P (MAP) Pulse Ox O2 Delivery O2 Flow Rate FiO2 04/18/18 16:00 98.9 105 18 140/64 (89) 94 Nasal Cannula 2.0 I&O- Last 24 Hours up to 6 AM 04/18/18 06:00 Intake Total 292 ml Output Total 0 ml Balance 292 ml DARY LUNDBERG MD Apr 18, 2018 17:34
[2018-04-18 18:31] LABS: ALBUMIN 1.8 GM/DL (3.2-5.2); BILIRUBIN,DIRECT 0.2 MG/DL (0.0-0.2); BILIRUBIN,TOTAL 0.5 MG/DL (0.2-1.0); TOTAL PROTEIN 5.8 GM/DL (6.4-8.2)
[2018-04-18 20:17] VITALS: BP 143/68
[2018-04-18] MEDS: ACETAMINOPHEN TAB 650MG DOSE (2X325MG) PO PRN (20:56)
[2018-04-18] MEDS ORDERED: cefTRIAXone SOD 2 GM in D5W MINI-BAG PLUS 50 ML IV SCH (21:00)
--- NOTE | 2018-04-18 23:13 | CR.PDOC ---
General Date of Consultation: Apr 18, 2018 Consultation REASON FOR CONSULTATION/CHIEF COMPLAINT: Bacteremia HISTORY OF PRESENT ILLNESS: Mr. Dixon is a 72 y/o male with past medical history significant for CHF with EF around 35%, CKD III, atrial fibrillation on home Eliquis, lumbar degenerative disc disease with radiculopathy, CAD, HTN, DLP, DM2, GERD, Iron deficient anemia and colon cancer history who apparently presented to the ED on 04/14/18 with complaint of diarrhea and generalized weakness. The patient states that he has not noted any fever, chills or night sweats at home prior to admission, no recent travel nor sick contacts, no nausea or vomiting. He does complain of new onset low back pain that began about two weeks ago without a preceding injury. He states he recently had a colon resection for colon cancer in November of 2017, apparently a laparoscopic procedure that eventually had to be converted intra-operatively to an open one. He has not had nor was recommended according to patient for chemotherapy or radiation. He was admitted to to the hospital for his diarrhea and weakness, at the time no antibiotics were initiated as it did not appear he had an infection. However he did develop a fever a couple days past admission, and has since had four blood cultures positive for gram positive cocci in pairs and chains. He states his diarrhea has much improved since admission. He has received antibiotic therapy with vancomycin and cefepime this admission. Infectious disease was asked to see the patient for his persistent bacteremia. ALLERGIES: Please see below. HOME MEDICATIONS: Please see below. PAST MEDICAL HISTORY: As per HPI Surgical History PAST SURGICAL HISTORY: CABG x2, cardiac ablation, pacemaker and AICD placement, colon resection surgery, appendectomy. 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 REVIEW OF SYSTEMS: CONSTITUTIONAL: does feel somewhat tired, weakness is generalized HEENT: No headache or visual disturbances CARDIOVASCULAR: denies chest pain nor syncope RESPIRATORY: denies SOB, cough or wheeze GENITOURINARY: no pain with urination or blood in urine MUSCULOSKELETAL: does admit to new onset low back pain that began acutely 2 weeks ago, to the point it is difficult for him to move in bed for participation in physical exam, no associated numbness, weakness or paralysis of extremities GASTROINTESTINAL: diarrhea has improved, denies blood in stool or dark black stool, no pain with BM SKIN: he does have chronic lower extremity venous stasis skin changes/ulcerative changes PHYSICAL EXAMINATION: VITAL SIGNS: Please see below. GENERAL APPEARANCE: laying in bed with no obvious signs of stress, appears older than his stated age, conversant HEENT: EOMI, nares patent b/l, moist mucus membranes RESPIRATORY: no crackles, wheezing or rhonchi appreciated CARDIOVASCULAR: normal s1 and s2, he does have a diastolic murmur on exam at least +2, no rales or gallops appreciated ABDOMEN: soft and non tender to palpation, nabsx4, no rebound ridgity or guarding, no distension, no hepatosplenomegaly EXTREMITIES: trace swelling to b/l LE with what appear to be chronic not in fected b/l LE ulcer/changes due to venous stasis disease, no pus or blood exudation NEUROLOGICAL: no focal deficits MSK: Patient does have pain to palpation of lower thoracic to upper lumbar spine, not so in C-spine area, otherwise no swelling, erythema or bruising of back, he is uncomfortable when we ask him to sit up and turn over for exam of his back due to ache/pain in his low back LABORATORY DATA: Please see below. ASSESSMENT/PLAN: 1. Gram positive cocci bacteremia -this is concerning, it is four blood cultures positives and he has history of colon cancer with resection, this could represent infection of the blood with enterococcus faecalis, strep viridans or possible streptococcus gallolyticus. In any event, we will stop cefepime and begin ceftriaxone and vancomycin. He will need an ECHO as this is very concerning for endocarditis picture. CRP was elevated on admission, repeat one for AM. We have asked nursing staff to please obtain discharge summary from [facility] where patient claims he had recent colon cancer resection. Repeat blood cultures are still pending. Suspect his b/l LE chronic wounds are just that and do not represent a source of active infection at this time. We will continue to follow along this patient with you. ESR ordered and pending. 2. Acute LBP -physical exam showed some element of tenderness along lower thoracic spine - Lumbar spine CT revealed chronic age related and degenerative disc changes etc. -Would continue to monitor for now, less likely this pain is due from an abscess -he should work with PT to help with mobility and strength Vital Signs/I&O Vital Signs Date Time Temp Pulse Resp B/P (MAP) Pulse Ox O2 Delivery O2 Flow Rate FiO2 04/18/18 21:00 2.0 04/18/18 20:58 92 143/68 04/18/18 20:17 98.9 18 97 Nasal Cannula I&O- Last 24 Hours up to 6 AM 04/18/18 05:59 Intake Total 292 ml Output Total 0 ml Balance 292 ml Laboratory Data Labs 24H Laboratory Tests 2 04/18/18 05:22: Nucleated Red Blood Cells % (auto) 0.0, Anion Gap 9, Glomerular Filtration Rate 50.0, Blood Urea Nitrogen 48H, Creatinine 1.47H, Sodium Level 143, Potassium Level 4.1, Chloride Level 113H, Carbon Dioxide Level 21, Calcium Level 8.4L, Magnesium Level 2.0 04/18/18 12:02: Bedside Glucose (Misc Panel) 174H 04/18/18 16:59: Bedside Glucose (Misc Panel) 141H 04/18/18 17:19: Bedside Glucose (Misc Panel) 178H 04/18/18 17:52: Aspartate Amino Transf (AST/SGOT) 31, Alanine Aminotransferase (ALT/SGPT) 45, Alkaline Phosphatase 200H, Total Bilirubin 0.5, Direct Bilirubin 0.2, Total Protein 5.8L, Albumin 1.8L, Albumin/Globulin Ratio 0.45L, Lipase 93 04/18/18 20:14: Bedside Glucose (Misc Panel) 214H CBC/BMP Laboratory Tests 04/18/18 05:22 Red Blood Count 3.84 L, Mean Corpuscular Volume 77.6 L, Mean Corpuscular Hemoglobin 22.9 L, Mean Corpuscular Hemoglobin Concent 29.5 L, Red Cell Distribution Width 17.0 H, Calcium Level 8.4 L Microbiology Microbiology 04/17/18 Blood Culture - Preliminary, Resulted 04/17/18 Blood Culture - Preliminary, Resulted 04/16/18 Blood Culture - Preliminary, Resulted 04/16/18 Blood Culture - Preliminary, Resulted Allergies Coded Allergies: Sulfa Antibiotics (Verified Allergy, Intermediate, HIVES, DIZZINESS, ) Oxycodone (Verified Adverse Reaction, Mild, Hallucinates, 04/14/18) Home Medications Scheduled Apixaban Base (Eliquis) 2.5 Mg Tab, 2.5 MG PO BID, (Reported) Aspirin (Ecotrin Low Strength) 81 Mg Tab, 81 MG PO DAILY, (Reported) Atorvastatin Calcium (Atorvastatin Calcium) 40 Mg Tab, 40 MG PO DAILY, (Reported) Calcitriol (Rocaltrol) 0.25 Mcg Cap, 0.25 MCG PO 3XW, (Reported) MON,WED,FRI Carvedilol (Carvedilol) 6.25 Mg Tab, 6.25 MG PO BID, (Reported) Febuxostat (Uloric) 80 Mg Tab, 80 MG PO DAILY, (Reported) Insulin Aspart (Novolog Flexpen) 100 Unit/Ml Inj, 0 SC ACHS, (Reported) PER SLIDING SCALE Insulin Glargine (Lantus Solostar) 100 Unit/Ml Inj, 24 UNITS SC QAM, (Reported) Insulin Glargine (Lantus Solostar) 100 Unit/Ml Inj, 22 UNITS SC QHS, (Reported) Isosorbide Dinitrate (Isosorbide Dinitrate) 30 Mg Tab, 30 MG PO TID, (Reported) Multivitamins *[facility]* (Thera M Plus *[facility]*) 1 Tab Tab, 1 TAB PO D AILY, (Reported) Sacubitril/Valsartan (Entresto 49-51 mg) 1 Tab Tab, 1 TAB PO BID, (Reported) Spironolactone (Spironolactone) 25 Mg Tab, 12.5 MG PO DAILY, (Reported) Torsemide (Torsemide) 20 Mg Tab, 20 MG PO BID, (Reported) Scheduled PRN (Voltaren) 1 % Gel, 1 DOSE TOP QID PRN for PAIN, (Reported) APPLY TO PAINFUL AREAS Acetaminophen (Tylenol) 325 Mg Tab, 650 MG PO Q4H PRN for PAIN, (Reported) Nitroglycerin (Nitrostat) 0.4 Mg Subl, 0.4 MG SL NITRO PRN for CHEST PAIN, (Reported) GME ATTESTATION GME ATTESTATION My faculty preceptor for this patient encounter was physically present during the encounter and was fully available. All aspects of the patient interview, examination, medical decision making process, and medical care plan development were reviewed and approved by the faculty preceptor. The faculty preceptor is aware and concurs with the plan as stated in the body of this note and will attest to such by his/her cosignature. ELBA MARIE DO Apr 18, 2018 23:13
[2018-04-19] VITALS (7 sets, daily range): BP systolic 146–173; BP diastolic 70–96
[2018-04-19] MEDS: ANALGESIC BALM CRM 120 GM TOP PRN (00:26)
[2018-04-19] MEDS: VANCOMYCIN HCL 1,000 MG, VIAL MATE ADAPTER 1 EACH in D5W 250 ML IV SCH (00:36)
[2018-04-19] MEDS: traMADol 50 MG TAB PO PRN ×2 (00:36→09:41)
[2018-04-19] MEDS: SLF 3 ML SYR IV SCH ×3 (05:34→22:00)
[2018-04-19 05:48] LABS: HEMATOCRIT 30.2 % (42.0-52.0); HEMOGLOBIN 8.8 g/dl (13.5-17.5); MEAN CORPUSCULAR HEMOGLOBIN 22.9 pg (27.0-33.0); MEAN CORPUSCULAR HGB CONC 29.1 g/dl (32.0-36.5); MEAN CORPUSCULAR VOLUME 78.4 fl (80.0-96.0); PLATELET COUNT, AUTOMATED 146 10^3/uL (150-450); RED BLOOD COUNT 3.85 10^6/uL (4.30-6.10); WHITE BLOOD COUNT 6.4 10^3/uL (4.0-10.0)
[2018-04-19 06:11] LABS: ERYTHROCYTE SEDIMENTATION RATE 73 mm/hr (0-20)
[2018-04-19 06:18] LABS: ALBUMIN 1.8 GM/DL (3.2-5.2); BILIRUBIN,DIRECT 0.1 MG/DL (0.0-0.2); BILIRUBIN,TOTAL 0.4 MG/DL (0.2-1.0); C REACTIVE PROTEIN QUANTITATIV 8.96 MG/DL (0.00-0.30); CALCIUM LEVEL 8.2 MG/DL (8.8-10.2); CREATININE FOR GFR 1.64 MG/DL (0.70-1.30); GLOMERULAR FILTRATION RATE 44.1 (>42); MAGNESIUM LEVEL 2.1 MG/DL (1.8-2.4); POTASSIUM SERUM 4.3 MEQ/L (3.5-5.1); TOTAL PROTEIN 5.7 GM/DL (6.4-8.2)
[2018-04-19] MEDS: HumaLOG INSULIN (NovoLOG) PER UNIT SC SCH ×4 (07:30→21:27)
[2018-04-19] MEDS: MORPHINE 4 MG/ML 1ML VIAL/SYRINGE (J2270) IV PRN (07:54)
[2018-04-19] MEDS: ISOSORBIDE DIN (ISORDIL) 10 MG TAB PO SCH ×4 (08:00→19:02)
[2018-04-19] MEDS ORDERED: NS 1,000 ML IV SCH ×2 (08:15→14:30)
[2018-04-19] MEDS: ATORVASTATIN 20 MG TAB PO SCH ×2 (09:00→09:32)
[2018-04-19] MEDS: AQUAPHOR **100GM** OINT TOP SCH (09:00)
[2018-04-19] MEDS: CALCITRIOL 0.25 MCG CAP (S0169) PO SCH ×2 (09:00→09:32)
[2018-04-19] MEDS: CARVedilol 6.25 MG TAB PO SCH ×3 (09:00→21:27)
[2018-04-19] MEDS: ASPIRIN 81 MG ENTERIC TAB PO SCH ×2 (09:00→09:32)
[2018-04-19] MEDS: SENOKOT S TAB PO SCH ×2 (09:00→21:27)
[2018-04-19] MEDS: APIXABAN 2.5 MG TAB (ELIQUIS) PO SCH ×3 (09:00→21:27)
[2018-04-19] MEDS: FERROUS SULFATE 325MG TAB PO SCH ×3 (09:00→21:25)
[2018-04-19] MEDS: MULTIVITAMINS/MINERALS THERAP 1 TAB PO SCH ×2 (09:00→09:31)
[2018-04-19] MEDS: FEBUXOSTAT 40 MG TABLET (ULORIC) PO SCH ×2 (09:00→09:32)
[2018-04-19] MEDS: ASCORBIC ACID 500 MG TAB PO SCH ×3 (09:00→21:26)
[2018-04-19] MEDS: ENTRESTO 49-51MG TABLET (SACUBITRIL/VALSARTAN) PO SCH ×3 (09:00→21:25)
--- NOTE | 2018-04-19 09:15 | REP ---
Clinical: Abdominal pain with history of cholecystitis. Technique: Real time youngblood scale ultrasound examination using curved array transducer. Findings: Liver and visualized pancreas are normal in contour, size, echogenicity without focal hepatic or pancreatic lesions identified. The gallbladder is poorly evaluated due to technical factors but multiple gallstones are identified and a small amount of pericholecystic fluid as well as minimal wall thickening cannot be excluded. Sonographic Orta's sign was elicited during examination. The common bile duct is upper limits of normal at 7 mm. Right kidney is normal in reniform shape with increased central sinus fat consistent with age-related changes and no evidence for hydronephrosis. Right kidney measures 13.4 x 4.9 x 5.6 cm. No ascites. Incidental moderate right pleural effusion. Impression: 1. Examination is limited but findings are highly suspicious for acute cholecystitis. 2. Small to moderate right pleural effusion. Electronically Signed by Amandeep Donnelly MD 04/19/2018 09:07 A
[2018-04-19] MEDS: SPIRONOLACTONE 12.5MG PER 1/2 TABLET PO SCH (09:32)
[2018-04-19] MEDS: LEVEMIR (INSULIN DETEMIR) 1 UNITS/0.01ML SC SCH ×2 (09:36→21:25)
[2018-04-19] MEDS: LIDOCAINE 5% OINT 30 GM TOP SCH (09:37)
--- NOTE | 2018-04-19 10:57 | REP ---
Clinical: Pleural effusion. Comparison: 04/14/2018. Findings: Stable cardiomegaly with evidence for prior sternotomy, CABG, and pacemaker. Lung kohler demonstrate diffuse chronic interstitial changes. Pulmonary vascular congestion cannot be excluded. No focal consolidation. No effusion or pneumothorax. Skeletal structures demonstrate age-related changes. Impression: Chronic cardiomegaly and interstitial changes. Cannot exclude chronic pulmonary vascular congestion. No obvious effusion. Electronically Signed by Amandeep Donnelly MD 04/19/2018 10:48 A
[2018-04-19] MEDS ORDERED: LIDOCAINE 5% (LIDODERM) PATCH TD ONE (12:45)
--- NOTE | 2018-04-19 13:33 | IPNPDOC ---
Subjective Date Seen The patient was seen on 04/19/18. Subjective Chief Complaint/HPI . General: Reports: Fatigue, Malaise; Denies: Chills Pulmonary: Denies: Dyspnea, Cough Cardiovascular: Denies: Chest Pain, Palpitations Gastrointestinal: Denies: Nausea, Vomiting Genitourinary: Denies: Dysuria Neurological: Reports: Weakness Psych: Reports: Mood Normal Objective Physical Examination General Exam: Positive: Alert, Cooperative, No Acute Distress Eye Exam: Positive: PERRLA, Conjunctiva & lids normal, EOMI; Negative: Sclera icteric, Ptosis ENT Exam: Positive: Atraumatic, Pharynx Normal, Tongue Midline, Nares Patent; Negative: Mucous membr. moist/pink, Pharyngeal Edema Neck Exam: Positive: Supple; Negative: thyromegaly, Lymphadenopathy Chest Exam: Positive: Clear to auscultation, Normal air movement; Negative: Rales, Rhonchi, Wheezing, Diminished Heart Exam: Positive: Irregular Rhythm; Negative: Gallops, Murmurs, Rubs Telemetry: Positive: Atrial fibrillation Abdomen Exam: Positive: BS Hyperactive, Soft; Negative: Tenderness, Hepatospenomegaly, Mass, Hernia Extremity Exam: Positive: Other (chronic diabetic wound ulcers noted on the bilateral lower extremities unchanged from past exam); Negative: Clubbing, Cyanosis, Edema, Normal pulses (irregularly irregular), Tenderness, Swelling Skin Exam: Positive: Lesion (bilateral lower extremity) Neuro Exam: Positive: Normal Speech, Cranial Nerves 3-12 NL Psych Exam: Positive: Oriented x 3 Assessment /Plan Assessment 1. Gram positive cocci bacteremia -Concerning for Endocarditis, likely from GI source. - His blood cultures were positive x4 and he has history of colon cancer with resection, as suspected blood cultures positive for Enterococcus Faecalis. -Will begin to treat for endocarditis, begin Ampicillin and Gentamicin, keep peak level of Gentamicin between 3-5 as it is for synergistic use with Ampicillin, with Gentamicin trough <1 - Have stopped Vancomycin. - He will need a total of 6 week course if endocarditis confirmed with above antibiotics beginning from time of first NEGATIVE blood culture, blood cultures for tomorrow pending, these will need to be repeated until one comes back negative. - S/p Cefepime and ceftriaxone and Vancomycin. - LAUREANO STAT ordered for today by hospitalist -CRP up to 8.96 today, continue to monitor this. -Suspect his b/l LE chronic wounds are just that and do not represent a source of active infection at this time. We will continue to follow along this patient with you. -ESR was elevated today as well. 2. Acute LBP -physical exam showed some element of tenderness along lower thoracic spine - Lumbar spine CT revealed chronic age related and degenerative disc changes etc. -Would continue to monitor for now, less likely this pain is due from an abscess -he should work with PT to help with mobility and strength Plan/VTE VTE Prophylaxis Ordered?: Yes (Eliquis 2.5 mg by mouth twice a day) Plan IVF: Initiate (normal saline and 50 mLs per hour for 12 hours) Diet: Make NPO (advance diet as tolerated in the morning) Activity: Continue Current Therapy: PT Diagnostics: Check Labs, Repeat Labs in AM, CT (abdomen and pelvis without contrast) Anticipated Discharge: Home VS, I&O, 24H, Fishbone Vital Signs/I&O Vital Signs Date Time Temp Pulse Resp B/P (MAP) Pulse Ox O2 Delivery O2 Flow Rate FiO2 04/19/18 12:00 2.0 04/19/18 12:00 99.4 113 22 148/86 (106) 92 Nasal Cannula I&O- Last 24 Hours up to 6 AM 04/19/18 06:00 Intake Total 1120 ml Balance 1120 ml Laboratory Data 24H LABS Laboratory Tests 2 04/18/18 16:59: Bedside Glucose (Misc Panel) 141H 04/18/18 17:19: Bedside Glucose (Misc Panel) 178H 04/18/18 17:52: Aspartate Amino Transf (AST/SGOT) 31, Alanine Aminotransferase (ALT/SGPT) 45, Alkaline Phosphatase 200H, Total Bilirubin 0.5, Direct Bilirubin 0.2, Total Protein 5.8L, Albumin 1.8L, Albumin/Globulin Ratio 0.45L, Lipase 93 04/18/18 20:14: Bedside Glucose (Misc Panel) 214H 04/19/18 05:09: Nucleated Red Blood Cells % (auto) 0.0, Erythrocyte Sedimentation Rate 73H, Anion Gap 8, Glomerular Filtration Rate 44.1, Calcium Level 8.2L, Magnesium Level 2.1, Aspartate Amino Transf (AST/SGOT) 53H, Alanine Aminotransferase (ALT/SGPT) 58, Alkaline Phosphatase 197H, Total Bilirubin 0.4, Direct Bilirubin 0.1, C-Reactive Protein, Quantitative 8.96H, Total Protein 5.7L, Albumin 1.8L, Albumin/Globulin Ratio 0.46L CBC/BMP Laboratory Tests 04/19/18 05:09 Red Blood Count 3.85 L, Mean Corpuscular Volume 78.4 L, Mean Corpuscular Hemoglobin 22.9 L, Mean Corpuscular Hemoglobin Concent 29.1 L, Red Cell Distribution Width 17.2 H Microbiology Microbiology 04/19/18 Blood Culture, Received Pending 04/17/18 Blood Culture - Preliminary, Resulted 04/17/18 Blood Culture - Preliminary, Resulted 04/16/18 Blood Culture - Final, Complete Enterococcus Faecalis 04/16/18 Blood Culture - Final, Complete Enterococcus Faecalis GME ATTESTATION GME ATTESTATION My faculty preceptor for this patient encounter was physically present during the encounter and was fully available. All aspects of the patient interview, examination, medical decision making process, and medical care plan development were reviewed and approved by the faculty preceptor. The faculty preceptor is aware and concurs with the plan as stated in the body of this note and will attest to such by his/her cosignature. ELBA MARIE DO Apr 19, 2018 13:33 Gregory Palumbo MD Apr 24, 2018 21:37
[2018-04-19] MEDS: AMPICILLIN SOD 2 GM in D5W MINI-BAG PLUS 100 ML IV SCH ×3 (14:02→22:16)
[2018-04-19] MEDS ORDERED: KETOROLAC 30 MG/ML VIAL (J1885) IV ONE (14:30)
[2018-04-19 15:02] LABS: ABG BASE EXCESS -4.3 (-2.0-2.0); ABG HCO3 18.1 MEQ/L (22.0-26.0); ABG O2 SATURATION 96.6 % (95.0-99.0); ABG PARTIAL PRESSURE CO2 24.8 mmHg (35.0-45.0); ABG PARTIAL PRESSURE O2 86.9 mmHg (75.0-100.0); ABG STANDARD HCO3 20.9 MEQ/L (22.0-26.0); ABG TOTAL CO2 18.9 MEQ/L (23.0-31.0); ABG pH (ARTERIAL) 7.481 UNITS (7.350-7.450)
[2018-04-19] MEDS ORDERED: CETACAINE SPRAY 5GM As Ordered ONE (15:49)
--- NOTE | 2018-04-19 16:29 | REP ---
HIDA SCAN: Following the intravenous administration of 6.5 mCi of technetium 99m mebrofenin, multiple images of the right upper quadrant are performed up to 3 hours post injection. Homogeneous radiotracer activity is seen on initial images. There is excretion to the biliary system with biliary to bowel transit seen at 15 to 20 minutes post injection. The gallbladder is not visualized up to 3 hours post injection. IMPRESSION: Nonfilling of the gallbladder up to 3 hours post injection. This could indicate acute or chronic cholecystitis. Electronically Signed by Deion Cramer MD 04/19/2018 04:32 P
[2018-04-19] MEDS ORDERED: ONDANSETRON 4MG/2ML VIAL (J2405) As Ordered ONE (16:37)
[2018-04-19] MEDS ORDERED: MIDAZOLAM INJ 2 MG/2 ML VIAL (J2250) As Ordered ONE (16:37)
[2018-04-19] MEDS ORDERED: PROPOFOL 500 MG/50 ML VIAL As Ordered ONE (16:37)
[2018-04-19] MEDS ORDERED: dexameTHASONE 4 MG/ML 1ML VIAL (J1100) As Ordered ONE (16:37)
[2018-04-19] MEDS ORDERED: LIDOCAINE 2% INJ 100 MG/5 ML SDV (FOR ANES.) As Ordered ONE (16:37)
[2018-04-19] MEDS ORDERED: fentaNYL 100 MCG/2 ML INJECTION (J3010) As Ordered ONE (16:37)
--- NOTE | 2018-04-19 17:58 | IPNPDOC ---
Text Note Date of Service The patient was seen on 04/19/18. NOTE patient seen and examined. No acute events overnight. Reported continued generalized weakness. Poor PO intake. reported back pain. No further diarrhea. Denies any fevers, chills, chest pain, pressure, or discomfort. PHYSICAL EXAMINATION: GENERAL: Patient alert, comfortable, in no acute distress. HEENT: Normocephalic, atraumatic. PULMONARY: Bilateral clear. CARDIAC: Irregular, S1, S2 . ABDOMEN: Soft, positive bowel sounds, nontender. EXTREMITIES: Bilateral lower extremities chronic venous stasis ulcers, crusting, minimal drainage, minimal swelling, pulses intact. ASSESSMENT AND PLAN: This is a 72-year-old male patient with underlying medical history of atrial fibrillation, diastolic and systolic congestive heart failure, ejection fraction 35-40%, coronary artery disease, hypertension, diabetes mellitus, chronic kidney disease (CKD) stage III, gout, lumbar degenerative disc disease with stenosis and radiculopathy, history of colon cancer, history of sk in cancer, mitral insufficiency, iron deficiency anemia, and dyslipidemia presented with generalized weakness and diarrhea. 1. Diarrhea. 2/2 colitis. Currently has resolved. gastrointestinal (GI) studies if additional diarrhea. Initially given IV fluids. Will monitor clinically. No leukocytosis. Diet as tolerated. 2. Fever- with enterococcus faecalis bacteremia. UA neg, ID consult, antib iotics switched to ampicillin and gentamycin. h/o cholecystitis, US abd, HIDA, liver function. d/w Dr Vang, patient with chronic cholecystitis, no indication for cholecystostomy tube as per surgery. CT abd with PO contrast. LAUREANO. h/o partial colectomy at [facility] 3. back pain with spinal stenosis and degenerative disc disease. pain medication. CT lumbar appreciated. Pain management consult 4. Generalized weakness. IV fluids have been given. Physical therapy. Diet as tolerated. PT 5. Diastolic and systolic congestive heart failure. Ejection fraction 35-40%. Diuretics on hold. IVF. continue Entresto. Continue aspirin, continue statin, continue beta masood, continue Eliquis. torsemide at reduced dose. spirolactone 6. Chronic atrial fibrillation. Continue Eliquis, continue beta masood. Telemetry monitoring. 7. Diabetes. Basal bolus insulin. Hypoglycemic protocol. Levemir at reduced dose, advance as needed. 8. Bilateral lower extremities venous stasis ulcers. Wound care as ordered. Outpatient followup with Dr. Jacobsen. 9. Acute on chronic renal insufficiency, chronic kidney disease (CKD) stage III at baseline. Currently returning to baseline. Continue current medication. 10. Gout. Continue current medication. 11. Coronary artery disease. Continue aspirin, beta masood, statin, Entresto, Isordil. 12. History of mitral valve disease. Outpatient followup. 13. History of iron deficiency anemia. Likely worsening anemia due to dilutional. Will monitor clinically, anemia workup ordered, iron supplement. Patient has had workup in the past which includes multiple fecal occult that have been negative. Will monitor clinically. colonoscopy in [place] last year. HH improved without transfusion, transfusion consent 14. Deep venous thrombosis (DVT) prophylaxis. Patient on Eliquis. DISPOSITION: Pending physical therapy (PT), clinical improvement, further workup VS,Walt, I+O VS, Walt, I+O Laboratory Tests 04/19/18 05:09 Red Blood Count 3.85 L, Mean Corpuscular Volume 78.4 L, Mean Corpuscular Hemoglobin 22.9 L, Mean Corpuscular Hemoglobin Concent 29.1 L, Red Cell Distribution Width 17.2 H Vital Signs Date Time Temp Pulse Resp B/P (MAP) Pulse Ox O2 Delivery O2 Flow Rate FiO2 04/19/18 17:40 105 24 133/64 (87) 96 Nasal Cannula 3 04/19/18 17:33 97.6 I&O- Last 24 Hours up to 6 AM 04/19/18 05:59 Intake Total 1120 ml Balance 1120 ml DARY LUNDBERG MD Apr 19, 2018 17:58
[2018-04-19] MEDS ORDERED: ONDANSETRON 4MG/2ML VIAL (J2405) IV PRN (18:00)
[2018-04-19] MEDS ORDERED: LR 1,000 ML IV SCH (18:00)
[2018-04-19] MEDS ORDERED: fentaNYL 100 MCG/2 ML INJECTION (J3010) IV PRN (18:00)
--- NOTE | 2018-04-19 18:29 | CR ---
DATE OF CONSULTATION: 04/19/2018 REASON FOR CONSULTATION: History of cholecystitis with recent blood cultures positive for enterococcus on 04/16/2018. I was asked to see the patient for possible ongoing issues with gallbladder/cholecystitis. HISTORY: The patient's history is that he presented with severe diarrhea, dehydration and abdominal pain without nausea, vomiting. He was started on cholestyramine for this severe diarrhea and had been becoming dehydrated, thus his medications for congestive heart failure/diuretics had been decreased. He is not complaining of any abdominal pain at this time and the hospitalists have asked for a transesophageal echocardiogram (LAUREANO) by cardiology; have asked for additional recommendations including workup of the gallbladder/intra-abdominal possibilities for his enterococcus. His original CT scan on admission revealed some thickening of the colon in the rectosigmoid/rectum consistent with colitis. Has some gallstones. The gallbladder was not dilated and no significant inflammatory changes were appreciated with this. The ultrasound performed today reveal a contracted gallbladder, not a distended gallbladder. However, it appears that the gallbladder does not fill on today's gallbladder nuclear scan, which is probably left over from the cholecystitis he had on last admission. PHYSICAL EXAMINATION: Reveals a frail-appearing 72-year-old who looks stated age. Lungs are clear anteriorly though diminished posteriorly. Heart is irregularly irregular. Abdomen is soft, nondistended, nontender. He states that he has some mild discomfort with palpation in the right upper quadrant, but otherwise negative exam. Extremities: Warm, well-perfused. IMPRESSION AND PLAN: The patient does not have evidence of cholecystitis on ultrasound or CT scan and thus at this point I feel that although the HIDA scan does not show the gallbladder filling I am not convinced this is an acute cholecystitis. I feel this is probably chronically obstructed from his last episode of cholecystitis and I do feel that continuing him on antibiotics is reasonable. The more important question is whether this is a source of the enterococcus infection with his diarrhea that he presented with; it seems temporally related to this episode of colitis that he had and diarrhea, more so than any evidence of a gallbladder abscess developing which was not seen on ultrasound or CT scan. Thus it is reasonable to continue him on antibiotics and there is not any interventional way to take care of the gallbladder at this time and it would have been open/laparoscopic cholecystectomy, but I would still feel that antibiotic treatment is warranted and once he becomes stable medically and discharged and his faring a lot better than he has currently, I would feel that it is reasonable to see him as an outpatient and we can discuss this further. He understands and understands my recommendation that an intra-abdominal procedures/cholecystectomy at this time is not warranted. More importantly they have plans of doing a CT scan later on tonight for further evaluation of the possible source for this enterococcus.
[2018-04-19] MEDS: GASTROGRAFIN SOLUTION 30ML PO SCH ×2 (19:03→19:33)
--- NOTE | 2018-04-19 19:16 | T-ECHO ---
DATE OF PROCEDURE: 04/19/2018 REFERRING PHYSICIAN: Dr. Trinidad Donovan INDICATIONS: Bacterial endocarditis, enterococcus fecalis bacteremia. PREPROCEDURE DIAGNOSIS: Bacterial endocarditis, enterococcus fecalis bacteremia. POSTPROCEDURE DIAGNOSIS: Bacterial endocarditis, enterococcus fecalis bacteremia. FINDINGS: No vegetations. Moderate aortic valve sclerosis with mild aortic regurgitation. Severe reduction in overall LV systolic function. PROCEDURE PERFORMED: Transesophageal echocardiogram. PROCEDURE PERFORMED BY: Andrew Medina MD LEAD FRONT DESK AGENT: None. INTRAVENOUS SEDATION: Propofol IV per [employer] CAMPAIGN MANAGER. COMPLICATIONS: None. PROCEDURE DESCRIPTION: Rhythm appeared regular. Patient received topical Cetacaine to the back of the pharynx. After receiving adequate IV sedation esophageal intubation was accomplished without difficulty using a 3 dimensional Carreon transesophageal echocardiogram probe by Dr. Medina. The left ventricle appeared to be predominately globally hypokinetic with severe reduction of LV systolic function. LVEF 30% by visual estimate. Complete visualization of the left ventricle endocardium was difficulty on this study and transgastric views were technically difficult Right ventricle appeared normal in size and systolic function. No pericardial effusion. Aortic valve was three-cuspid and displaced moderate focal thickening and focal calcific deposits. Mild reduction in aortic cusp mobility. Mild aortic regurgitation (two jets) was present. No vegetations were seen on the aortic valve. Probably at least mild mitral annular calcification. There is very mild mitral regurgitation. No vegetations seen on the mitral leaflets. Tricuspid leaflets appeared structurally normal. No vegetations on the tricuspid leaflets. Moderate tricuspid regurgitation was present. Pulmonic valve with only moderately visualized but appeared normal. No pulmonic valve regurgitation was detected. No masses or thrombi were seen within the atria or their appendages other than presence of cardiac rhythm management leads seen in the superior vena cava, right atrium and right ventricle. No vegetations were seen attached to the endocardial cardiac rhythm management leads. Type 1 spontaneous echocontrast was seen in both atria. No thrombi were seen in the atria. Both atria appear to be enlarged. The distal aortic arch and descending thoracic aorta show mild atherosclerotic plaque. CONCLUSIONS: 1. No vegetations seen on any of the cardiac valves. 2. Severe reduction of overall LV systolic function. LVEF 30% by visual estimate. 3. Moderate aortic valve sclerosis with mild aortic regurgitation. 4. Mild mitral annular calcification. Very mild mitral regurgitation. 5. Structurally normal appearing tricuspid leaflets. Moderate tricuspid regurgitation. 6. Appearance of biatrial enlargement. 7. Endocardial cardiac rhythm management leads seen in the superior vena cava, right atrium and right ventricle. No associated vegetations attached to the visualized portions of the cardiac rhythm management leads. 8. Mild atherosclerotic plaque seen in the distal aortic arch and descending thoracic aorta.
[2018-04-19] MEDS: GENTAMICIN 80 MG in APPROPRIATE DILUENT 1 EA IV SCH (19:33)
[2018-04-19] MEDS ORDERED: **NOTE PATIENT COMMENT** MISC XX ONE (21:00)
--- NOTE | 2018-04-19 21:24 | REP ---
Clinical: Abdominal pain. Colitis. Technique: Axial images from the lung bases to the pubic symphysis using oral contrast material with coronal and sagittal re-formations. Comparison: 04/14/2018. Findings: Moderate right and small left pleural effusions with bibasilar atelectasis and evidence for pulmonary vascular congestion is appreciated. Liver, spleen, pancreas, and bilateral kidneys are relatively normal / stable. A low-density nodularity to the bilateral adrenal glands suggest small adenoma/hyperplastic changes. Gallbladder appears contracted with evidence for gallstones. The enteric system is without obstruction. Previously noted mural thickening and suspected colitis involving the rectosigmoid colon appears to have improved and essentially resolved. Pelvis demonstrates normal bladder. The prostate gland is heterogeneous and enlarged measuring 5.3 cm maximal transverse diameter. No ascites. No free air. No obvious adenopathy. Atherosclerotic changes of the aorta and vasculature without aneurysm. Musculoskeletal structures demonstrate degenerative changes without focal osseous abnormality. Impression: 1. Previously noted colitis involving the rectosigmoid colon has a improved / resolved. 2. Small to moderate pleural effusions and bibasilar atelectasis with pulmonary vascular congestion. 3. Further chronic changes as described above. 4. No further acute abdominopelvic pathology appreciated. Specifically, no ascites, adenopathy or obvious focal inflammatory stranding. Electronically Signed by Amandeep Donnelly MD 04/19/2018 09:15 P
[2018-04-20] VITALS (8 sets, daily range): BP systolic 105–147; BP diastolic 59–79
[2018-04-20] MEDS: AMPICILLIN SOD 2 GM in D5W MINI-BAG PLUS 100 ML IV SCH ×6 (01:44→21:24)
[2018-04-20] MEDS: GENTAMICIN 80 MG in APPROPRIATE DILUENT 1 EA IV SCH (03:17)
[2018-04-20 05:15] LABS: HEMATOCRIT 31.6 % (42.0-52.0); HEMOGLOBIN 9.2 g/dl (13.5-17.5); MEAN CORPUSCULAR HEMOGLOBIN 23.4 pg (27.0-33.0); MEAN CORPUSCULAR HGB CONC 29.1 g/dl (32.0-36.5); MEAN CORPUSCULAR VOLUME 80.4 fl (80.0-96.0); PLATELET COUNT, AUTOMATED 137 10^3/uL (150-450); RED BLOOD COUNT 3.93 10^6/uL (4.30-6.10); WHITE BLOOD COUNT 3.3 10^3/uL (4.0-10.0)
[2018-04-20 05:38] LABS: ALBUMIN 1.7 GM/DL (3.2-5.2); BILIRUBIN,DIRECT 0.2 MG/DL (0.0-0.2); BILIRUBIN,TOTAL 0.4 MG/DL (0.2-1.0); C REACTIVE PROTEIN QUANTITATIV 7.77 MG/DL (0.00-0.30); CALCIUM LEVEL 8.1 MG/DL (8.8-10.2); CREATININE FOR GFR 1.64 MG/DL (0.70-1.30); GLOMERULAR FILTRATION RATE 44.1 (>42); MAGNESIUM LEVEL 2.2 MG/DL (1.8-2.4); TOTAL PROTEIN 5.9 GM/DL (6.4-8.2)
[2018-04-20] MEDS: SLF 3 ML SYR IV SCH ×3 (05:47→21:13)
[2018-04-20] MEDS: HumaLOG INSULIN (NovoLOG) PER UNIT SC SCH ×4 (07:30→21:12)
[2018-04-20] MEDS: ISOSORBIDE DIN (ISORDIL) 10 MG TAB PO SCH ×3 (07:55→17:01)
[2018-04-20] MEDS: CARVedilol 6.25 MG TAB PO SCH ×2 (09:39→21:12)
[2018-04-20] MEDS: APIXABAN 2.5 MG TAB (ELIQUIS) PO SCH ×2 (09:39→21:12)
[2018-04-20] MEDS: ASPIRIN 81 MG ENTERIC TAB PO SCH (09:39)
[2018-04-20] MEDS: FERROUS SULFATE 325MG TAB PO SCH ×2 (09:40→21:11)
[2018-04-20] MEDS: ENTRESTO 49-51MG TABLET (SACUBITRIL/VALSARTAN) PO SCH ×2 (09:40→21:17)
[2018-04-20] MEDS: ATORVASTATIN 20 MG TAB PO SCH (09:40)
[2018-04-20] MEDS: MULTIVITAMINS/MINERALS THERAP 1 TAB PO SCH (09:41)
[2018-04-20] MEDS: SENOKOT S TAB PO SCH ×2 (09:41→21:12)
[2018-04-20] MEDS: FEBUXOSTAT 40 MG TABLET (ULORIC) PO SCH (09:41)
[2018-04-20] MEDS: LEVEMIR (INSULIN DETEMIR) 1 UNITS/0.01ML SC SCH ×2 (09:42→21:13)
[2018-04-20] MEDS: ASCORBIC ACID 500 MG TAB PO SCH ×2 (09:42→21:11)
[2018-04-20] MEDS: AQUAPHOR **100GM** OINT TOP SCH (09:43)
[2018-04-20] MEDS: LIDOCAINE 5% OINT 30 GM TOP SCH (09:44)
--- NOTE | 2018-04-20 13:26 | IPNPDOC ---
Text Note Date of Service The patient was seen on 04/20/18. NOTE patient seen and examined. No acute events overnight. Reported continued generalized weakness. Poor PO intake. reported back pain. No further diarrhea. Denies any fevers, chills, chest pain, pressure, or discomfort. PHYSICAL EXAMINATION: GENERAL: Patient alert, comfortable, in no acute distress. HEENT: Normocephalic, atraumatic. PULMONARY: Bilateral clear. CARDIAC: Irregular, S1, S2 . ABDOMEN: Soft, positive bowel sounds, nontender. EXTREMITIES: Bilateral lower extremities chronic venous stasis ulcers, crusting, minimal drainage, minimal swelling, pulses intact. ASSESSMENT AND PLAN: This is a 72-year-old male patient with underlying medical history of atrial fibrillation, diastolic and systolic congestive heart failure, ejection fraction 35-40%, coronary artery disease, hypertension, diabetes mellitus, chronic kidney disease (CKD) stage III, gout, lumbar degenerative disc disease with stenosis and radiculopathy, history of colon cancer, history of sk in cancer, mitral insufficiency, iron deficiency anemia, and dyslipidemia presented with generalized weakness and diarrhea. 1. Diarrhea. 2/2 colitis. Currently has resolved. gastrointestinal (GI) studies if additional diarrhea. Initially given IV fluids. Will monitor clinically. Diet as tolerated. 2. Fever- with enterococcus faecalis bacteremia. UA neg, ID consult, antibiotics switched to ampicillin and gentamycin. h/o cholecystitis, US abd, HIDA, liver function. d/w Dr Vang, patient with chronic cholecystitis, no indication for cholecystostomy tube as per surgery. CT abd with PO contrast. LAUREANO. h/o partial colectomy at [facility] 3. back pain with spinal stenosis and degenerative disc disease. pain medication. CT lumbar appreciated. Pain management consult 4. Generalized weakness. IV fluids have been given. Physical therapy. Diet as tolerated. PT 5. Diastolic and systolic congestive heart failure. Ejection fraction 35-40%. Diuretics on hold. IVF. continue Entresto. Continue aspirin, continue statin, continue beta masood, continue Eliquis. hold torsemide and spirolactone 6. Chronic atrial fibrillation. Continue Eliquis, continue beta masood. Telemetry monitoring. 7. Diabetes. Basal bolus insulin. Hypoglycemic protocol. Levemir at reduced dose, advance as needed. 8. Bilateral lower extremities venous stasis ulcers. Wound care as ordered. Outpatient followup with Dr. Stillerman. 9. Acute on chronic renal insufficiency, chronic kidney disease (CKD) stage III at baseline. Currently returning to baseline. Continue current medication. 10. Gout. Continue current medication. 11. Coronary artery disease. Continue aspirin, beta masood, statin, Entresto, Isordil. 12. History of mitral valve disease. Outpatient followup. 13. History of iron deficiency anemia. Will monitor clinically, anemia workup ordered, iron supplement. Patient has had workup in the past which includes multiple fecal occult that have been negative. Will monitor clinically. colonoscopy in [place] last year. HH improved without transfusion, transfusion consent 14. Deep venous thrombosis (DVT) prophylaxis. Patient on Eliquis. DISPOSITION: Pending physical therapy (PT), clinical improvement, further workup VS,Walt, I+O VS, Walt, I+O Laboratory Tests 04/20/18 04:37 Red Blood Count 3.93 L, Mean Corpuscular Volume 80.4, Mean Corpuscular Hemoglobin 23.4 L, Mean Corpuscular Hemoglobin Concent 29.1 L, Red Cell Distribution Width 17.0 H Vital Signs Date Time Temp Pulse Resp B/P (MAP) Pulse Ox O2 Delivery O2 Flow Rate FiO2 04/20/18 12:39 105/59 04/20/18 09:39 87 04/20/18 08:00 3.0 04/20/18 08:00 97.6 14 100 Nasal Cannula I&O- Last 24 Hours up to 6 AM 04/20/18 06:00 Intake Total 2430 ml Output Total 0 ml Balance 2430 ml DARY LUNDBERG MD Apr 20, 2018 13:26
[2018-04-20] MEDS: traMADol 50 MG TAB PO PRN (13:52)
[2018-04-20] MEDS: ACETAMINOPHEN TAB 650MG DOSE (2X325MG) PO PRN (21:12)
[2018-04-21] VITALS (7 sets, daily range): BP systolic 124–150; BP diastolic 62–72
[2018-04-21] MEDS: traMADol 50 MG TAB PO PRN ×3 (00:46→18:07)
[2018-04-21] MEDS: AMPICILLIN SOD 2 GM in D5W MINI-BAG PLUS 100 ML IV SCH ×3 (02:05→09:52)
[2018-04-21] MEDS: ACETAMINOPHEN TAB 650MG DOSE (2X325MG) PO PRN (04:49)
[2018-04-21] MEDS: SLF 3 ML SYR IV SCH ×3 (05:06→20:47)
[2018-04-21 05:42] LABS: HEMATOCRIT 27.8 % (42.0-52.0); HEMOGLOBIN 8.2 g/dl (13.5-17.5); MEAN CORPUSCULAR HEMOGLOBIN 22.8 pg (27.0-33.0); MEAN CORPUSCULAR HGB CONC 29.5 g/dl (32.0-36.5); MEAN CORPUSCULAR VOLUME 77.4 fl (80.0-96.0); PLATELET COUNT, AUTOMATED 152 10^3/uL (150-450); RED BLOOD COUNT 3.59 10^6/uL (4.30-6.10); WHITE BLOOD COUNT 5.5 10^3/uL (4.0-10.0)
[2018-04-21] MEDS ORDERED: GENTAMICIN 100 MG in APPROPRIATE DILUENT 1 EA IV SCH (06:00)
[2018-04-21 06:03] LABS: ALBUMIN 1.7 GM/DL (3.2-5.2); BILIRUBIN,DIRECT 0.1 MG/DL (0.0-0.2); BILIRUBIN,TOTAL 0.2 MG/DL (0.2-1.0); C REACTIVE PROTEIN QUANTITATIV 3.67 MG/DL (0.00-0.30); CALCIUM LEVEL 7.2 MG/DL (8.8-10.2); CREATININE FOR GFR 2.45 MG/DL (0.70-1.30); GLOMERULAR FILTRATION RATE 27.7 (>42); MAGNESIUM LEVEL 2.2 MG/DL (1.8-2.4); POTASSIUM SERUM 5.1 MEQ/L (3.5-5.1)
[2018-04-21] MEDS: MORPHINE 4 MG/ML 1ML VIAL/SYRINGE (J2270) IV PRN ×3 (06:35→21:00)
[2018-04-21] MEDS: HumaLOG INSULIN (NovoLOG) PER UNIT SC SCH ×4 (07:54→20:47)
[2018-04-21] MEDS: ISOSORBIDE DIN (ISORDIL) 10 MG TAB PO SCH ×3 (07:55→17:09)
[2018-04-21 07:58] LABS: GENTAMICIN LEVEL TROUGH 1.7 MCG/ML (0.0-2.0)
[2018-04-21] MEDS ORDERED: NS 1,000 ML IV SCH (08:15)
[2018-04-21] MEDS: SENOKOT S TAB PO SCH ×2 (09:00→20:46)
[2018-04-21] MEDS: AQUAPHOR **100GM** OINT TOP SCH (09:00)
[2018-04-21] MEDS: FEBUXOSTAT 40 MG TABLET (ULORIC) PO SCH (09:42)
[2018-04-21] MEDS: SLF 3 ML SYR IV PRN ×3 (09:45→18:08)
[2018-04-21] MEDS: LEVEMIR (INSULIN DETEMIR) 1 UNITS/0.01ML SC SCH ×2 (09:46→20:47)
[2018-04-21] MEDS: ATORVASTATIN 20 MG TAB PO SCH (09:46)
[2018-04-21] MEDS: ASPIRIN 81 MG ENTERIC TAB PO SCH (09:47)
[2018-04-21] MEDS: MULTIVITAMINS/MINERALS THERAP 1 TAB PO SCH (09:48)
[2018-04-21] MEDS: CALCITRIOL 0.25 MCG CAP (S0169) PO SCH (09:48)
[2018-04-21] MEDS: FERROUS SULFATE 325MG TAB PO SCH ×2 (09:51→20:46)
[2018-04-21] MEDS: APIXABAN 2.5 MG TAB (ELIQUIS) PO SCH ×2 (09:53→20:46)
[2018-04-21] MEDS: CARVedilol 6.25 MG TAB PO SCH ×2 (09:53→20:46)
[2018-04-21] MEDS: ENTRESTO 49-51MG TABLET (SACUBITRIL/VALSARTAN) PO SCH (09:54)
[2018-04-21] MEDS: ANALGESIC BALM CRM 120 GM TOP PRN (09:57)
[2018-04-21] MEDS: LIDOCAINE 5% OINT 30 GM TOP SCH (09:58)
[2018-04-21] MEDS: ASCORBIC ACID 500 MG TAB PO SCH ×2 (10:01→20:47)
--- NOTE | 2018-04-21 12:02 | REP ---
Clinical: Acute on chronic renal failure. Technique: Real time youngblood scale ultrasound examination using curved array transducer. Findings: The bilateral kidneys are normal in contour, size, echogenicity, and reniform shape without hydronephrosis, nephrolithiasis, cystic or renal mass lesion. Increased central sinus fat is consistent with age-related change. Right kidney measures 13.2 x 5.5 x 4.7 cm and a minuscule amount of perinephric fluid cannot be excluded. Left kidney measures 13.0 x 5.0 x 5.5 cm without perinephric fluid. The bladder demonstrates mild bladder wall thickening and trabeculations consistent with chronic changes possibly related to chronic outlet obstruction. Impression: Chronic medical renal disease. No hydronephrosis. A minuscule amount of right perinephric fluid cannot be excluded. Bladder findings suggest chronic outlet obstruction. Electronically Signed by Amandeep Donnelly MD 04/21/2018 11:53 A
[2018-04-21] MEDS: cefTRIAXone SOD 1 GM in D5W MINI-BAG PLUS 50 ML IV SCH (12:53)
--- NOTE | 2018-04-21 15:11 | IPNPDOC ---
Text Note Date of Service The patient was seen on 04/21/18. NOTE patient seen and examined. No acute events overnight. Reported continued generalized weakness. Poor PO intake. reported back pain. No further diarrhea. Denies any fevers, chills, chest pain, pressure, or discomfort. PHYSICAL EXAMINATION: GENERAL: Patient alert, comfortable, in no acute distress. HEENT: Normocephalic, atraumatic. PULMONARY: Bilateral clear. CARDIAC: Irregular, S1, S2 . ABDOMEN: Soft, positive bowel sounds, nontender. EXTREMITIES: Bilateral lower extremities chronic venous stasis ulcers, crusting, minimal drainage, minimal swelling, pulses intact. ASSESSMENT AND PLAN: This is a 72-year-old male patient with underlying medical history of atrial fibrillation, diastolic and systolic congestive heart failure, ejection fraction 35-40%, coronary artery disease, hypertension, diabetes mellitus, chronic kidney disease (CKD) stage III, gout, lumbar degenerative disc disease with stenosis and radiculopathy, history of colon cancer, history of sk in cancer, mitral insufficiency, iron deficiency anemia, and dyslipidemia presented with generalized weakness and diarrhea. 1. Diarrhea. 2/2 colitis. Currently has resolved. gastrointestinal (GI) studies if additional diarrhea. Initially given IV fluids. Will monitor clinically. Diet as tolerated. 2. Fever- with enterococcus faecalis bacteremia. UA neg, ID consult, ad/w Dr Palumbo, given worsen kidney function antibiotic switch to rocephin. h/o cholecystitis, US abd, HIDA, liver function. d/w Dr Vang, patient with chronic cholecystitis, no indication for cholecystostomy tube as per surgery. CT abd with PO contrast. LAUREANO. h/o partial colectomy at [facility] 3. back pain with spinal stenosis and degenerative disc disease. pain medication. CT lumbar appreciated. Pain management consult 4. Generalized weakness. IV fluids have been given. Physical therapy. Diet as tolerated. PT 5. Diastolic and systolic congestive heart failure. Ejection fraction 35-40%. Diuretics on hold. IVF. continue Entresto. Continue aspirin, continue statin, continue beta masood, continue Eliquis. hold torsemide and spirolactone 6. Chronic atrial fibrillation. Continue Eliquis, continue beta masood. Telemetry monitoring. 7. Diabetes. Basal bolus insulin. Hypoglycemic protocol. Levemir at reduced dose, advance as needed. 8. Bilateral lower extremities venous stasis ulcers. Wound care as ordered. Outpatient followup with Dr. Jacobsen. 9. Acute on chronic renal insufficiency, chronic kidney disease (CKD) stage III at baseline. nephrology consulted. possibly 2/2 to gentamicin, antibiotics switched to Rocephin. Continue current medication. 10. Gout. Continue current medication. 11. Coronary artery disease. Continue aspirin, beta masood, statin, Entresto, Isordil. 12. History of mitral valve disease. Outpatient followup. 13. History of iron deficiency anemia. Will monitor clinically, anemia workup ordered, iron supplement. Patient has had workup in the past which includes multiple fecal occult that have been negative. Will monitor clinically. colonoscopy in [place] last year. HH improved without transfusion, transfusion consent 14. Deep venous thrombosis (DVT) prophylaxis. Patient on Eliquis. DISPOSITION: Pending physical therapy (PT), clinical improvement, further workup VS,Walt, I+O VS, Walt, I+O Laboratory Tests 04/21/18 05:19 Red Blood Count 3.59 L, Mean Corpuscular Volume 77.4 L, Mean Corpuscular Hemoglobin 22.8 L, Mean Corpuscular Hemoglobin Concent 29.5 L, Red Cell Distribution Width 17.0 H Vital Signs Date Time Temp Pulse Resp B/P (MAP) Pulse Ox O2 Delivery O2 Flow Rate FiO2 04/21/18 13:30 18 Nasal Cannula 1.0 04/21/18 12:53 140/70 04/21/18 12:00 97.2 75 94 I&O- Last 24 Hours up to 6 AM 04/21/18 06:00 Intake Total 2880 ml Output Total 0 ml Balance 2880 ml DARY LUNDBERG MD Apr 21, 2018 15:11
[2018-04-21 16:47] LABS: CALCIUM LEVEL 7.6 MG/DL (8.8-10.2); CREATININE FOR GFR 2.82 MG/DL (0.70-1.30); GLOMERULAR FILTRATION RATE 23.6 (>42); POTASSIUM SERUM 4.4 MEQ/L (3.5-5.1)
[2018-04-21] MEDS: CALCIUM CARBONATE 500 MG CHEW U/D PO PRN (21:42)
[2018-04-22] VITALS (7 sets, daily range): BP systolic 124–188; BP diastolic 69–90
[2018-04-22] MEDS: traMADol 50 MG TAB PO PRN ×3 (03:24→23:52)
[2018-04-22] MEDS: SLF 3 ML SYR IV SCH ×3 (06:00→20:33)
[2018-04-22 06:01] LABS: HEMATOCRIT 30.9 % (42.0-52.0); MEAN CORPUSCULAR HEMOGLOBIN 22.7 pg (27.0-33.0); MEAN CORPUSCULAR HGB CONC 29.1 g/dl (32.0-36.5); PLATELET COUNT, AUTOMATED 178 10^3/uL (150-450); RED BLOOD COUNT 3.96 10^6/uL (4.30-6.10); WHITE BLOOD COUNT 7.3 10^3/uL (4.0-10.0)
[2018-04-22 06:26] LABS: ALBUMIN 1.8 GM/DL (3.2-5.2); ALT/SGPT 49 U/L (12-78); BILIRUBIN,DIRECT < 0.1 MG/DL (0.0-0.2); BILIRUBIN,TOTAL 0.3 MG/DL (0.2-1.0); BLOOD UREA NITROGEN 85 MG/DL (7-18); C REACTIVE PROTEIN QUANTITATIV 2.49 MG/DL (0.00-0.30); CARBON DIOXIDE LEVEL 22 MEQ/L (21-32); CHLORIDE LEVEL 107 MEQ/L (98-107); CREATININE FOR GFR 3.22 MG/DL (0.70-1.30); GLOMERULAR FILTRATION RATE 20.2 (>42); GLUCOSE, FASTING 139 MG/DL (70-100); MAGNESIUM LEVEL 2.4 MG/DL (1.8-2.4); POTASSIUM SERUM 4.8 MEQ/L (3.5-5.1); SODIUM LEVEL 139 MEQ/L (136-145); TOTAL PROTEIN 5.3 GM/DL (6.4-8.2)
[2018-04-22] MEDS: HumaLOG INSULIN (NovoLOG) PER UNIT SC SCH ×4 (07:30→20:32)
[2018-04-22] MEDS: MORPHINE 4 MG/ML 1ML VIAL/SYRINGE (J2270) IV PRN ×3 (09:02→20:33)
[2018-04-22] MEDS: APIXABAN 2.5 MG TAB (ELIQUIS) PO SCH ×2 (09:24→20:29)
[2018-04-22] MEDS: ATORVASTATIN 20 MG TAB PO SCH (09:24)
[2018-04-22] MEDS: FEBUXOSTAT 40 MG TABLET (ULORIC) PO SCH (09:24)
[2018-04-22] MEDS: ASCORBIC ACID 500 MG TAB PO SCH ×2 (09:24→20:30)
[2018-04-22] MEDS: SENOKOT S TAB PO SCH ×2 (09:24→20:30)
[2018-04-22] MEDS: CARVedilol 6.25 MG TAB PO SCH ×2 (09:25→20:29)
[2018-04-22] MEDS: MULTIVITAMINS/MINERALS THERAP 1 TAB PO SCH (09:25)
[2018-04-22] MEDS: FERROUS SULFATE 325MG TAB PO SCH ×2 (09:25→20:29)
[2018-04-22] MEDS: ASPIRIN 81 MG ENTERIC TAB PO SCH (09:25)
[2018-04-22] MEDS: ISOSORBIDE DIN (ISORDIL) 10 MG TAB PO SCH ×3 (09:25→18:02)
[2018-04-22] MEDS: AQUAPHOR **100GM** OINT TOP SCH (09:26)
[2018-04-22] MEDS: LEVEMIR (INSULIN DETEMIR) 1 UNITS/0.01ML SC SCH ×2 (09:26→20:30)
[2018-04-22] MEDS: LIDOCAINE 5% OINT 30 GM TOP SCH (09:26)
[2018-04-22] MEDS: cefTRIAXone SOD 1 GM in D5W MINI-BAG PLUS 50 ML IV SCH (11:53)
[2018-04-22 12:33] LABS: AMORPHOUS SEDIMENT SMALL (NEGATIVE); APPEARANCE, URINE CLOUDY (CLEAR); BACTERIA, URINE AUTO 1+ (NEGATIVE); BILIRUBIN, URINE AUTO NEGATIVE (NEGATIVE); BLOOD, URINE BLOOD NEGATIVE (NEGATIVE); COLOR, URINE AMBER (YELLOW); GLUCOSE, URINE (UA) AUTO NEGATIVE (NEGATIVE); KETONE, URINE AUTO TRACE mg/dL (NEGATIVE); LEUKOCYTE ESTERASE, URINE AUTO NEGATIVE (NEGATIVE); NITRITE, URINE AUTO NEGATIVE (NEGATIVE); PROTEIN, URINE AUTO 2+ mg/dL (NEGATIVE); RBC, URINE AUTO 10 /HPF (0-3); SPECIFIC GRAVITY URINE AUTO 1.018 (1.002-1.035); SQUAMOUS EPITHELIAL CELL UR AU 1 /HPF (0-6); WBC, URINE AUTO 11 /HPF (0-3)
[2018-04-22 12:36] LABS: OSMOLALITY URINE 349 MOSM/KG (500-800)
[2018-04-22 12:56] LABS: SODIUM,RANDOM URINE 23 MEQ/L; TOTAL PROTEIN,RANDOM URINE 198.5 MG/DL (0.0-12.0)
[2018-04-22] MEDS: CALCIUM CARBONATE 500 MG CHEW U/D PO PRN (18:02)
--- NOTE | 2018-04-22 18:41 | IPNPDOC ---
Text Note Date of Service The patient was seen on 04/22/18. NOTE patient seen and examined. No acute events overnight. Reported continued generalized weakness. reported back pain. Denies any fevers, chills, chest pain, pressure, or discomfort. PHYSICAL EXAMINATION: GENERAL: Patient alert, comfortable, in no acute distress. HEENT: Normocephalic, atraumatic. PULMONARY: Bilateral clear. CARDIAC: Irregular, S1, S2 . ABDOMEN: Soft, positive bowel sounds, nontender. EXTREMITIES: Bilateral lower extremities chronic venous stasis ulcers, crusting, minimal drainage, minimal swelling, pulses intact. ASSESSMENT AND PLAN: This is a 72-year-old male patient with underlying medical history of atrial fibrillation, diastolic and systolic congestive heart failure, ejection fraction 35-40%, coronary artery disease, hypertension, diabetes mellitus, chronic kidney disease (CKD) stage III, gout, lumbar degenerative disc disease with stenosis and radiculopathy, history of colon cancer, history of skin cancer, mitral insufficiency, iron deficiency anemia, and dyslipidemia presented with generalized weakness and diarrhea. 1. Diarrhea. 2/2 colitis. Currently has resolved. gastrointestinal (GI) studies if additional diarrhea. Initially given IV fluids. Will monitor clinically. Diet as tolerated. 2. Fever- with enterococcus faecalis bacteremia. UA neg, ID consult, ad/w Dr Palumbo, given worsen kidney function antibiotic switch to rocephin. h/o cholecystitis, US abd, HIDA, liver function. d/w Dr Vang, patient with chronic cholecystitis, no indication for cholecystostomy tube as per surgery. CT abd with PO contrast. LAUREANO. h/o partial colectomy at [facility] 3. back pain with spinal stenosis and degenerative disc disease. pain medication. CT lumbar appreciated. Pain management consult 4. Generalized weakness. IV fluids have been given. Physical therapy. Diet as tolerated. PT 5. Diastolic and systolic congestive heart failure. Ejection fraction 35-40%. Diuretics on hold. IVF. stopped Entresto given renal function worsen. Continue aspirin, continue statin, continue beta masood, continue Eliquis. hold torsemide and spirolactone 6. Chronic atrial fibrillation. Continue Eliquis, continue beta masood. Telemetry monitoring. 7. Diabetes. Basal bolus insulin. Hypoglycemic protocol. Levemir at reduced dose, advance as needed. 8. Bilateral lower extremities venous stasis ulcers. Wound care as ordered. Outpatient followup with Dr. Jacobsen. 9. Acute on chronic renal insufficiency, chronic kidney disease (CKD) stage III at baseline. nephrology consulted. possibly 2/2 to gentamicin, and entresto, antibiotics switched to Rocephin. monitor closely 10. Gout. Continue current medication. 11. Coronary artery disease. Continue aspirin, beta masood, statin, hold Entresto given worsen kidney function. Isordil. 12. History of mitral valve disease. Outpatient followup. 13. History of iron deficiency anemia. Will monitor clinically, anemia workup ordered, iron supplement. Patient has had workup in the past which includes multiple fecal occult that have been negative. Will monitor clinically. colonoscopy in [place] last year. HH improved without transfusion, transfusion consent 14. Deep venous thrombosis (DVT) prophylaxis. Patient on Eliquis. DISPOSITION: Pending physical therapy (PT), improved kidney function, final ID rec. VS,Fishbone, I+O VS, Fishbone, I+O Laboratory Tests 04/22/18 05:03 Red Blood Count 3.96 L, Mean Corpuscular Volume 78.0 L, Mean Corpuscular Hemoglobin 22.7 L, Mean Corpuscular Hemoglobin Concent 29.1 L, Red Cell Distribution Width 17.0 H Vital Signs Date Time Temp Pulse Resp B/P (MAP) Pulse Ox O2 Delivery O2 Flow Rate FiO2 04/22/18 18:02 160/78 04/22/18 16:00 98.1 73 18 99 Nasal Cannula 1.0 I&O- Last 24 Hours up to 6 AM 04/22/18 05:59 Intake Total 1260 ml Output Total 0 ml Balance 1260 ml DARY LUNDBERG MD Apr 22, 2018 18:41
[2018-04-22] MEDS ORDERED: NS 1,000 ML IV SCH (21:45)
[2018-04-23 04:00] VITALS: BP 146/94
[2018-04-23 05:11] LABS: HEMATOCRIT 30.8 % (42.0-52.0); HEMOGLOBIN 9.2 g/dl (13.5-17.5); MEAN CORPUSCULAR HGB CONC 29.9 g/dl (32.0-36.5); PLATELET COUNT, AUTOMATED 188 10^3/uL (150-450); WHITE BLOOD COUNT 7.7 10^3/uL (4.0-10.0)
[2018-04-23 05:33] LABS: ALBUMIN 1.8 GM/DL (3.2-5.2); BILIRUBIN,DIRECT 0.1 MG/DL (0.0-0.2); BILIRUBIN,TOTAL 0.3 MG/DL (0.2-1.0); C REACTIVE PROTEIN QUANTITATIV 2.74 MG/DL (0.00-0.30); CALCIUM LEVEL 8.1 MG/DL (8.8-10.2); CREATININE FOR GFR 3.45 MG/DL (0.70-1.30); GLOMERULAR FILTRATION RATE 18.7 (>42); TOTAL PROTEIN 5.4 GM/DL (6.4-8.2)
[2018-04-23] MEDS: MORPHINE 4 MG/ML 1ML VIAL/SYRINGE (J2270) IV PRN ×2 (05:58→10:40)
[2018-04-23] MEDS: SLF 3 ML SYR IV SCH ×3 (05:58→22:14)
[2018-04-23] MEDS: HumaLOG INSULIN (NovoLOG) PER UNIT SC SCH ×4 (07:30→21:00)
[2018-04-23 07:45] VITALS: BP 121/67
--- NOTE | 2018-04-23 07:45 | CR ---
DATE OF CONSULTATION: 04/21/2018 CONSULTATION FOR: Trinidad Donovan MD REASON FOR CONSULT: Acute renal failure superimposed on chronic kidney disease. HISTORY OF PRESENT ILLNESS: Mr. Dixon is a 72-year-old gentleman with multiple chronic medical problems including a history of stage III of chronic kidney disease, diabetes, atrial fibrillation, chronic combined systolic and diastolic congestive heart failure, coronary artery disease, hypertension, and spinal stenosis with degenerative disc disease. He was admitted to [facility] on 04/14/2018 due to sepsis and dehydration. He was felt to have colitis causing enterococcus sepsis. He has been treated with antibiotics. Patient was also receiving diuretic and Entresto. He has developed acute renal failure, and a nephrology consultation was requested and patient is seen on 04/21/2018. PAST MEDICAL AND SURGICAL HISTORY: Significant for; 1. Longstanding type 2 diabetes. 2. Hypertension. 3. Atrial fibrillation. 4. Combined systolic and diastolic congestive heart failure. 5. History of coronary artery disease. 6. History of stage III of chronic kidney disease. 7. Gout. 8. History of anemia. 9. History of hyperlipidemia. 10. History of colon cancer, status post resection. 11. History of skin cancer. 12. History of mitral valve insufficiency. 13. History of colitis. MEDICATIONS: His home medications include; - Eliquis 2.5 mg twice a day - aspirin 81 mg daily - atorvastatin 40 mg daily - calcitriol 0.25 mcg three times a week - Carvedilol 6.25 mg twice a day - Uloric 80 mg daily - insulin Lantus 24 units in morning and 22 units in evening - isosorbide 30 mg three times a day - Entresto 49/51 mg twice a day - spironolactone 25 mg half a tablet daily - torsemide 20 mg twice a day ALLERGIES: Patient has allergy to SULFA and OXYCODONE. PERSONAL AND SOCIAL HISTORY: Patient is and lives with his family. He has no history of alcohol or tobacco use. Family history is noncontributory for this admission. His father is from coronary artery disease and mother with diabetes. PAST SURGICAL HISTORY: Is significant for coronary artery bypass surgery, colonoscopy, pacemaker and automatic implantable cardioverter-defibrillator (AICD) placement, cardiac ablation, appendectomy, cataract surgery, sigmoid colon resection, and basal cell carcinoma removal. REVIEW OF SYSTEMS: Patient was admitted with sepsis and colitis. He did have diarrhea which has now improved. He denies any rectal bleeding or abdominal pain. Ears, nose, and throat are unremarkable. Cardiovascular system is significant for combined congestive heart failure and atrial fibrillation. Respiratory system is significant for no dyspnea or chest pain. Gastrointestinal (GI) system is as per history of present illness. Genitourinary () system is negative for dysuria or hematuria. Musculoskeletal system is significant for spinal stenosis and degenerative arthritis. Neurological system is significant for mild dementia and spinal stenosis with lower extremity weakness. Psychosocial system negative for depression or anxiety. Hematological system is significant for chronic anticoagulation and anemia. PHYSICAL EXAM: At the time of my visit, his temperature is 97.2 degrees Fahrenheit, heart rate 76 per minute, and respiratory rate 20 per minute. Blood pressure 140/70 mmHg and oxygen saturation 94% on room air. Head: Is atraumatic. On his right cheek, there is a hyperkeratotic skin lesion. There is no oral thrush or ulcers. Pupils are equal and reactive to light. Sclera is anicteric. Neck is supple and jugular venous distention (JVD) is not abnormally elevated. Heart: Sounds are irregular in rhythm, and lungs clear to auscultation. Abdomen is soft and nontender and without a palpable organomegaly. Bowel sounds are normal. Extremities have no cyanosis or clubbing. He has dressing on both lower legs. Neurologically, he is awake, without a focal deficit and at his baseline mentation. LAB DATA: His WBC count is 5.5, hemoglobin 8.2, and hematocrit 27.8. Platelets 152. On the day of admission, his hemoglobin was 9.6 and hematocrit 32.1. His BUN was 51 and creatinine 1.64 on 04/19/2018, which is about his baseline. On 04/20/2018, BUN 55 and creatinine 1.64 while on 04/21/2018 his BUN jumped up to 78 and creatinine 2.45. Sodium is 138 and potassium 5.1. CO2 22 and calcium 7.2. Urinalysis done on 04/17/2018 showed 2+ protein and 1+ blood. Renal ultrasound done on the day of this visit showed chronic medical renal disease and no hydronephrosis or mass. Right kidney 13.2 cm and left kidney 13.0 cm. PROBLEMS: 1. Acute renal failure superimposed on chronic kidney disease. Patient is known to have stage III of chronic kidney disease at baseline creatinine of 1.6 mg/dL. Patient had gastrointestinal problems with decreased oral intake and diarrhea and was also receiving diuretics. Patient was also given Toradol, and he was on Entresto which may have contributed to his acute kidney injury. He suddenly had increase in BUN and creatinine on 04/21/2018. Obstruction has already been ruled out. His diuretics have been stopped, and I am going to stop his Entresto. I would suggest to gently hydrate him if his kidney function does not improve. Another factor was gentamicin nephrotoxicity that could have played a role, however, there is sudden increase in the BUN and creatinine which is more suggestive of dehydration or obstruction. In any event, he had multiple factors involved in causing his acute kidney injury and those factors are already been removed. I hope that over next few days his kidney function will improve. 2. Anemia. Patient does have prior history of anemia and with sepsis and acute kidney injury, his anemia is worsening. He is likely to require transfusion if his kidney function does not improve in next few days. 3. Congestive heart failure. Patient has been on chronic Entresto therapy along with diuretics. At this point, I would suggest to hydrate him and continue to hold off angiotensin receptor blockers and Entresto in addition to diuretic. I thank you for involving me in the care of Mr. Dixon. We will follow him along with you.
[2018-04-23] MEDS: FEBUXOSTAT 40 MG TABLET (ULORIC) PO SCH (08:19)
[2018-04-23] MEDS: ASPIRIN 81 MG ENTERIC TAB PO SCH (08:20)
[2018-04-23] MEDS: CARVedilol 6.25 MG TAB PO SCH ×2 (08:20→22:13)
[2018-04-23] MEDS: SENOKOT S TAB PO SCH ×2 (08:20→22:12)
[2018-04-23] MEDS: ATORVASTATIN 20 MG TAB PO SCH (08:20)
[2018-04-23] MEDS: AQUAPHOR **100GM** OINT TOP SCH (08:21)
[2018-04-23] MEDS: LEVEMIR (INSULIN DETEMIR) 1 UNITS/0.01ML SC SCH ×2 (08:21→22:14)
[2018-04-23] MEDS: ASCORBIC ACID 500 MG TAB PO SCH ×2 (08:21→22:12)
[2018-04-23] MEDS: MULTIVITAMINS/MINERALS THERAP 1 TAB PO SCH (08:21)
[2018-04-23] MEDS: ISOSORBIDE DIN (ISORDIL) 10 MG TAB PO SCH ×3 (08:21→18:02)
[2018-04-23] MEDS: APIXABAN 2.5 MG TAB (ELIQUIS) PO SCH ×2 (08:21→22:13)
[2018-04-23] MEDS: LIDOCAINE 5% OINT 30 GM TOP SCH (08:22)
[2018-04-23] MEDS: FERROUS SULFATE 325MG TAB PO SCH ×2 (08:23→22:14)
[2018-04-23] MEDS: traMADol 50 MG TAB PO PRN ×2 (08:24→18:03)
[2018-04-23] MEDS: CALCIUM CARBONATE 500 MG CHEW U/D PO PRN (08:29)
--- NOTE | 2018-04-23 08:42 | IPN ---
DATE: 04/22/2018 SUBJECTIVE: Patient seen and examined this morning at the bedside. He denies any acute overnight complaints. Has not had any further episodes of diarrhea. Denies nausea or vomiting. Reports so-so appetite. Reports he has not gotten out of bed in a couple of days. Vital signs: Temperature 97.7, pulse 75, respiratory rate 19, blood pressure 170/70, saturating 97% on one liter nasal cannula. Intake yesterday was 1460, there were three incontinent voids recorded yesterday. Weight in the bed scale today is 95 kg. General: Patient is seen lying down, awake, alert, comfortable, no acute distress. Extraocular muscles are intact. Tongue is moist. Neck veins are not elevated. Heart sounds are irregular, S1, S2. Lungs show clear air entry bilaterally. The abdomen is soft and nontender. Extremities: There is dressings on the lower extremities. There is trace edema at the dependent areas. LABORATORY DATA: Sodium 139, potassium 4.8, bicarbonate 22, BUN 85, creatinine 3.2, hemoglobin 9.0. Renal ultrasound 04/21/2018, there is no hydronephrosis. There is some chronic bladder changes to suggest chronic outlet obstruction. INPATIENT MEDICATIONS: He continues on ceftriaxone. His remainder of medications are unchanged from prior. PROBLEMS: 1. Acute kidney injury (JENNIFER) on chronic kidney disease (CKD) stage III. His baseline creatinine appears to be in the mid 1's. He has a prior history of recurrent acute kidney injury. Renal function has worsened over the past 72 hours. I see he received a dose of Toradol on 04/19/2018. He was also started on gentamicin on 04/19/2018, and he was also receiving Entresto and he was on his usual combination diuretics and was having diarrhea. His renal failure is presumably secondary to all of the above. His Entresto has been discontinued. His diuretics are on hold. Gentamicin was discontinued. There is no signs of renal recovery at present. He has no dialysis needs at present. Electrolytes and volume status are acceptable. Renal ultrasound was negative for hydronephrosis. I would get a postvoid residual bladder scan due to the bladder findings on the ultrasound. Encourage oral intake as tolerated. 2. Diastolic and systolic congestive heart failure. Ejection fraction of about 35%. Diuretics are on hold in view of the renal failure. Entresto is also on hold in view of the renal failure. His volume status at present is acceptable and his oral intake has been poor the past couple of days. We will continue to reassess his volume status daily. 3. Hypertension. Blood pressures have been ranging from systolic 120s to 140s. He had a one time elevated reading in the afternoon of systolic 170. Please hold Entresto and he continues on carvedilol, Isordil. 4. Diarrhea secondary to colitis. Patient denies any further diarrheal episodes. He is off of IV fluids. His oral intake is still not that great. His diuretics remain on hold.
[2018-04-23] MEDS ORDERED: NS 0.45% 1,000 ML IV SCH (11:30)
[2018-04-23] MEDS: GASTROGRAFIN SOLUTION 30ML PO SCH ×2 (11:44→12:21)
[2018-04-23 12:00] VITALS: BP 134/78
[2018-04-23] MEDS: cefTRIAXone SOD 1 GM in D5W MINI-BAG PLUS 50 ML IV SCH (12:36)
--- NOTE | 2018-04-23 14:06 | REP ---
Clinical: Left lower quadrant pain. Technique: Axial images from the lung bases to the pubic symphysis using oral contrast material with coronal and sagittal re-formations. Comparison: 04/19/2018. Findings: Evaluation of the enteric system demonstrates improving sigmoid colitis as compared to prior examinations with decreased mural thickening. A small amount of fluid and stranding is identified in the left carrol pelvis. There is no evidence for bowel obstruction or new acute process. Liver, spleen, pancreas, bilateral adrenal glands and kidneys are relatively normal / stable. Cholelithiasis noted without acute cholecystitis. Pelvis demonstrates Hampton catheter in collapsed bladder and mildly prominent prostate gland measuring up to approximately 5 cm transverse diameter. Small fat containing inguinal hernias noted. No ascites. No free air. No adenopathy. Musculoskeletal structures demonstrate degenerative changes without focal osseous abnormality. Moderate right and small left pleural effusions with passive atelectasis and findings to suggest cardiomegaly and mild pulmonary vascular congestion are similar to prior examination. Impression: 1. Improved sigmoid colitis. No new acute enteric process appreciated. 2. Chronic stable changes including cholelithiasis without acute cholecystitis. 3. No ascites. No adenopathy. No free air. 4. Pleural effusions with bibasilar passive atelectasis and pulmonary vascular congestion. Electronically Signed by Amandeep Donnelly MD 04/23/2018 01:59 P
[2018-04-23 14:58] LABS: CALCIUM LEVEL 8.3 MG/DL (8.8-10.2); CREATININE FOR GFR 3.21 MG/DL (0.70-1.30); GLOMERULAR FILTRATION RATE 20.3 (>42); POTASSIUM SERUM 4.9 MEQ/L (3.5-5.1)
[2018-04-23] MEDS: MIRALAX *UNIT DOSE* 17GM PACKET PO SCH (15:21)
[2018-04-23 16:00] VITALS: BP 139/65
--- NOTE | 2018-04-23 17:10 | IPNPDOC ---
Text Note Date of Service The patient was seen on 04/23/18. NOTE patient seen and examined. No acute events overnight. Reported continued generalized weakness. reported back pain. nursing staff noticed LLQ pain and right groin pain. Denies any fevers, chills, chest pain, pressure, or discomfort. PHYSICAL EXAMINATION: GENERAL: Patient alert, comfortable, in no acute distress. HEENT: Normocephalic, atraumatic. PULMONARY: Bilateral clear. CARDIAC: Irregular, S1, S2 . ABDOMEN: Soft, positive bowel sounds, nontender. right groin mild tenderness EXTREMITIES: Bilateral lower extremities chronic venous stasis ulcers, crusting, minimal drainage, minimal swelling, pulses intact. ASSESSMENT AND PLAN: This is a 72-year-old male patient with underlying medical history of atrial fibrillation, diastolic and systolic congestive heart failure, ejection fraction 35-40%, coronary artery disease, hypertension, diabetes mellitus, chronic kidney disease (CKD) stage III, gout, lumbar degenerative disc disease with stenosis and radiculopathy, history of colon cancer, history of skin cancer, mitral insufficiency, iron deficiency anemia, and dyslipidemia presented with generalized weakness and diarrhea. 1. Acute on chronic renal insufficiency, chronic kidney disease (CKD) stage III at baseline. nephrology consulted. possibly 2/2 to gentamicin, and entresto, antibiotics switched to Rocephin. monitor closely. IVF, I and O, Hampton 2. Fever- with enterococcus faecalis bacteremia. UA neg, ID consult, ad/w Dr Palumbo, given worsen kidney function antibiotic switch to rocephin. h/o cholecystitis, US abd, HIDA, liver function. d/w Dr Vang, patient with chronic cholecystitis, no indication for cholecystostomy tube as per surgery. CT abd with PO contrast. LAUREANO. h/o partial colectomy at [facility], repeat CT abd showed improved colitis 3. back pain with spinal stenosis and degenerative disc disease. pain medication. CT lumbar appreciated. Pain management consult 4. Generalized weakness. IV fluids have been given. Physical therapy. Diet as tolerated. PT 5. Diastolic and systolic congestive heart failure. Ejection fraction 35-40%. Diuretics on hold. IVF. stopped Entresto given renal function worsen. Continue aspirin, continue statin, continue beta masood, continue Eliquis. hold torsemide and spirolactone 6. Chronic atrial fibrillation. Continue Eliquis, continue beta masood. Telemetry monitoring. 7. Diabetes. Basal bolus insulin. Hypoglycemic protocol. Levemir at reduced dose, advance as needed. 8. Bilateral lower extremities venous stasis ulcers. Wound care as ordered. Outpatient followup with Dr. Jacobsen. 9. Diarrhea. 2/2 colitis. Currently has resolved. gastrointestinal (GI) studies if additional diarrhea. Initially given IV fluids. Will monitor clinically. Diet as tolerated. 10. Gout. Continue current medication. 11. Coronary artery disease. Continue aspirin, beta masood, statin, hold Entresto given worsen kidney function. Isordil. 12. History of mitral valve disease. Outpatient followup. 13. History of iron deficiency anemia. Will monitor clinically, anemia workup ordered, iron supplement. Patient has had workup in the past which includes multiple fecal occult that have been negative. Will monitor clinically. colonoscopy in [place] last year. HH improved without transfusion, transfusion consent 14. Deep venous thrombosis (DVT) prophylaxis. Patient on Eliquis. DISPOSITION: Pending physical therapy (PT), improved kidney function, final ID rec. Patient will multiple comorbidities, poor half-way prognosis. Poor PO intake VS,Fishbone, I+O VS, Fishbone, I+O Laboratory Tests 04/23/18 04:41 Red Blood Count 4.00 L, Mean Corpuscular Volume 77.0 L, Mean Corpuscular Hemoglobin 23.0 L, Mean Corpuscular Hemoglobin Concent 29.9 L, Red Cell Distribution Width 17.3 H 04/23/18 14:13 Calcium Level 8.3 L Vital Signs Date Time Temp Pulse Resp B/P (MAP) Pulse Ox O2 Delivery O2 Flow Rate FiO2 04/23/18 16:00 97.8 98 18 139/65 (89) 98 Nasal Cannula 2.0 I&O- Last 24 Hours up to 6 AM 04/23/18 06:00 Intake Total 1090 ml Output Total 200 ml Balance 890 ml DARY LUNDBERG MD Apr 23, 2018 17:10
[2018-04-23 20:00] VITALS: BP 154/80
[2018-04-24] VITALS: BP 154/91
[2018-04-24] MEDS: traMADol 50 MG TAB PO PRN ×3 (03:40→21:53)
[2018-04-24 05:30] LABS: HEMOGLOBIN 8.4 g/dl (13.5-17.5); MEAN CORPUSCULAR HEMOGLOBIN 23.2 pg (27.0-33.0); MEAN CORPUSCULAR VOLUME 77.3 fl (80.0-96.0); PLATELET COUNT, AUTOMATED 169 10^3/uL (150-450); RED BLOOD COUNT 3.62 10^6/uL (4.30-6.10); WHITE BLOOD COUNT 6.7 10^3/uL (4.0-10.0)
[2018-04-24 05:58] LABS: ALBUMIN 1.8 GM/DL (3.2-5.2); BILIRUBIN,DIRECT 0.1 MG/DL (0.0-0.2); BILIRUBIN,TOTAL 0.3 MG/DL (0.2-1.0); C REACTIVE PROTEIN QUANTITATIV 4.07 MG/DL (0.00-0.30); CALCIUM LEVEL 7.9 MG/DL (8.8-10.2); CREATININE FOR GFR 2.66 MG/DL (0.70-1.30); GLOMERULAR FILTRATION RATE 25.2 (>42); MAGNESIUM LEVEL 2.4 MG/DL (1.8-2.4); TOTAL PROTEIN 5.1 GM/DL (6.4-8.2)
[2018-04-24] MEDS: SLF 3 ML SYR IV SCH ×3 (06:00→21:56)
--- NOTE | 2018-04-24 07:17 | IPN ---
DATE OF SERVICE: 04/23/2018 SUBJECTIVE: Patient seen and examined this morning at the bedside. He is very fatigued and weak. Says he has not gotten out of bed in the past three days. Has had poor appetite, poor oral intake, worsening renal failure, decreased urine output and complaint of right lower quadrant abdominal pain and tenderness. Vital signs: Temperature 97.7, pulse 71, respiratory rate 19, blood pressure 134/78, saturating 100% on 2 liters nasal cannula. Intake yesterday was 640. Urine output yesterday was recorded at one incontinent void and 200 mL urine. Weight on the bed scale today is 94.8 kg. General: Patient is seen lying in bed, appears weak and tired. Extraocular muscles are intact. Tongue is moist. Nasal cannula is in place. Neck veins are elevated. Heart sounds are regular, S1, S2. Lungs show diminished breath sounds at the bases. Abdomen is soft, nontender. Patient complains of episodic tenderness in the almost right inguinal femoral region. The bladder is not palpable. Extremities: There are dressings on the lower extremities. There is no edema in the legs or peripheries. The right arm has some ecchymosis and is swollen. Neurologic: He is oriented at baseline mentation. LABS: White count 7.7, hemoglobin 9.2, platelets 188. Sodium 141, potassium 5, bicarbonate 22, BUN 80, creatinine 3.4. CT abdomen and pelvis 04/23/2018 improved sigmoid colitis and there is pleural effusions and pulmonary vascular congestion and bladder is collapsed with Hampton catheter now. INPATIENT MEDICATIONS: He received 1 liter of normal saline and is now on half normal saline at 40 mL/hr for a total of 500 mL. His Senokot is increased per the primary team and he is started on MiraLax. Remainder of medications are unchanged from prior. PROBLEMS: 1. Acute kidney injury on chronic kidney disease stage III. It looks like he is heading into oliguric renal failure. He has a prior history of recurrent acute kidney injury. This time around looks was mediated by a combination IV non-steroidal anti-inflammatory drugs (NSAID) with angiotensin receptor masood, aminoglycoside use and combination diuretics in the setting of diarrhea and colitis. All his nephrotoxics were discontinued. He has been receiving supportive care. He got some judicious IV fluids. There are no signs of renal recovery. I discussed with him that he may develop dialysis needs in the coming 24-[address] scan that he had done this afternoon shows developing hypervolemia with pleural effusions and pulmonary vasculature congestion. IV fluid is being stopped. There is no signs of any obstruction. He is going to get a Hampton catheter for urine output monitoring. Encourage oral intake as tolerated and monitor for developing dialysis needs. 2. Diastolic and systolic congestive heart failure. Ejection fraction 35%. Diuretics on hold in view of renal failure. Entresto on hold in view of renal failure. Now hypervolemic. Got 1 liter of normal saline. CT scan showed some pulmonary vascular congestion and pleural effusions. Stop IV fluid. No sign of renal recovery at present. Would likely need anticipated dialysis in coming 24-48 hours for control of volume status. 3. Hypertension. Blood pressures are acceptable. There is no documented hypotension. No changes are being made to his current regimen. MTDD
[2018-04-24] MEDS: SLF 3 ML SYR IV PRN (07:47)
[2018-04-24 08:00] VITALS: BP 160/80
[2018-04-24] MEDS: ASPIRIN 81 MG ENTERIC TAB PO SCH (08:51)
[2018-04-24] MEDS: CARVedilol 6.25 MG TAB PO SCH ×2 (08:51→20:24)
[2018-04-24] MEDS: CALCITRIOL 0.25 MCG CAP (S0169) PO SCH (08:53)
[2018-04-24] MEDS: APIXABAN 2.5 MG TAB (ELIQUIS) PO SCH ×2 (08:53→20:25)
[2018-04-24] MEDS: ATORVASTATIN 20 MG TAB PO SCH (08:54)
[2018-04-24] MEDS: FEBUXOSTAT 40 MG TABLET (ULORIC) PO SCH (08:54)
[2018-04-24] MEDS: FERROUS SULFATE 325MG TAB PO SCH ×2 (08:55→20:25)
[2018-04-24] MEDS: ISOSORBIDE DIN (ISORDIL) 10 MG TAB PO SCH ×2 (08:55→12:24)
[2018-04-24] MEDS: AQUAPHOR **100GM** OINT TOP SCH ×2 (09:00→13:50)
[2018-04-24] MEDS: SENOKOT S TAB PO SCH ×2 (09:06→20:23)
[2018-04-24] MEDS: ACETAMINOPHEN TAB 650MG DOSE (2X325MG) PO PRN ×2 (09:06→20:25)
[2018-04-24] MEDS: MIRALAX *UNIT DOSE* 17GM PACKET PO SCH (09:06)
[2018-04-24] MEDS: MULTIVITAMINS/MINERALS THERAP 1 TAB PO SCH (09:06)
[2018-04-24] MEDS: ASCORBIC ACID 500 MG TAB PO SCH ×2 (09:07→20:25)
[2018-04-24] MEDS: HumaLOG INSULIN (NovoLOG) PER UNIT SC SCH ×4 (09:07→21:00)
[2018-04-24] MEDS: LIDOCAINE 5% OINT 30 GM TOP SCH ×2 (09:08→13:50)
[2018-04-24] MEDS ORDERED: NS 0.45% 1,000 ML IV SCH (09:15)
[2018-04-24] MEDS: LEVEMIR (INSULIN DETEMIR) 1 UNITS/0.01ML SC SCH ×2 (11:22→20:25)
[2018-04-24] MEDS: cefTRIAXone SOD 1 GM in D5W MINI-BAG PLUS 50 ML IV SCH (11:24)
[2018-04-24 12:00] VITALS: BP 176/82
[2018-04-24] MEDS ORDERED: ISOSORBIDE DIN. (ISORDIL) 20 MG TAB PO SCH (13:00)
--- NOTE | 2018-04-24 17:13 | IPNPDOC ---
Text Note Date of Service The patient was seen on 04/24/18. NOTE patient seen and examined. No acute events overnight. Reported continued generalized weakness. reported back pain,poor po intake. Denies any fevers, chills, chest pain, pressure, or discomfort. PHYSICAL EXAMINATION: GENERAL: Patient alert, comfortable, in no acute distress. HEENT: Normocephalic, atraumatic. PULMONARY: Bilateral clear. CARDIAC: Irregular, S1, S2 . ABDOMEN: Soft, positive bowel sounds, nontender. EXTREMITIES: Bilateral lower extremities chronic venous stasis ulcers, crusting, minimal drainage, minimal swelling, pulses intact. ASSESSMENT AND PLAN: This is a 72-year-old male patient with underlying medical history of atrial fibrillation, diastolic and systolic congestive heart failure, ejection fraction 35-40%, coronary artery disease, hypertension, diabetes mellitus, chronic kidney disease (CKD) stage III, gout, lumbar degenerative disc disease with stenosis and radiculopathy, history of colon cancer, history of skin cancer, mitral insufficiency, iron deficiency anemia, and dyslipidemia presented with generalized weakness and diarrhea. 1. Acute on chronic renal insufficiency, chronic kidney disease (CKD) stage III at baseline. nephrology consulted. possibly 2/2 to gentamicin, and entresto, antibiotics switched to Rocephin and ampicillin. monitor closely. IVF given, I and O, Hampton 2. Fever- with enterococcus faecalis bacteremia. GI source 2/2 colitis vs chronic cholecystitis vs diskitis, UA neg, ID consult, a/w Dr Palumbo, given worsen kidney function antibiotic switch to ampicillin and rocephin. h/o cholecystitis, US abd, HIDA, liver function. d/w Dr Vang, patient with chronic cholecystitis, no indication for cholecystostomy tube as per surgery. CT abd with PO contrast. LAUREANO. h/o partial colectomy at [facility], repeat CT abd showed improved colitis. unfortunately, unable to do MRI due to AICD and unable to givne IV contrast given renal failure. possible WBC scan 3. back pain with spinal stenosis and degenerative disc disease. pain medication. CT lumbar appreciated. Pain management consult 4. Generalized weakness. IV fluids have been given. Physical therapy. Diet as tolerated. PT 5. Diastolic and systolic congestive heart failure. Ejection fraction 35-40%. Diuretics on hold. IVF. stopped Entresto given renal function worsen. Continue aspirin, continue statin, continue beta masood, Isordil continue Eliquis. hold torsemide and spirolactone 6. Chronic atrial fibrillation. Continue Eliquis, continue beta masood. Telemetry monitoring. 7. Diabetes. Basal bolus insulin. Hypoglycemic protocol. Levemir at reduced dose, advance as needed. 8. Bilateral lower extremities venous stasis ulcers. Wound care as ordered. Outpatient followup with Dr. Jacobsen. 9. Diarrhea. 2/2 colitis. Currently has resolved. gastrointestinal (GI) studies if additional diarrhea. ct abd appreciated. Will monitor clinically. Diet as tolerated. 10. Gout. Continue current medication. 11. Coronary artery disease. Continue aspirin, beta masood, statin, hold Entresto given worsen kidney function. Isordil. 12. History of mitral valve disease. Outpatient followup. 13. History of iron deficiency anemia. Will monitor clinically, anemia workup ordered, iron supplement. Patient has had workup in the past which includes multiple fecal occult that have been negative. Will monitor clinically. colonoscopy in [place] last year. HH improved without transfusion, transfusion consent 14. Deep venous thrombosis (DVT) prophylaxis. Patient on Eliquis. DISPOSITION: Pending physical therapy (PT), improved kidney function, further ID workup. Patient will multiple comorbidities, poor ferry terminal agent prognosis. Poor PO intake VS,Fishbone, I+O VS, Fishbone, I+O Laboratory Tests 04/24/18 04:49 Red Blood Count 3.62 L, Mean Corpuscular Volume 77.3 L, Mean Corpuscular Hemoglobin 23.2 L, Mean Corpuscular Hemoglobin Concent 30.0 L, Red Cell Distribution Width 17.4 H Vital Signs Date Time Temp Pulse Resp B/P (MAP) Pulse Ox O2 Delivery O2 Flow Rate FiO2 04/24/18 13:42 18 Nasal Cannula 1.0 04/24/18 12:24 148/82 04/24/18 12:00 98.0 70 98 I&O- Last 24 Hours up to 6 AM 04/24/18 06:00 Intake Total 1880 ml Output Total 1125 ml Balance 755 ml DARY LUNDBERG MD Apr 24, 2018 17:13
[2018-04-24] MEDS: ISOSORBIDE DIN. (ISORDIL) 20 MG TAB PO SCH (17:53)
[2018-04-24] MEDS: MORPHINE 4 MG/ML 1ML VIAL/SYRINGE (J2270) IV PRN (17:54)
[2018-04-24] MEDS: AMPICILLIN SOD 2 GM in D5W MINI-BAG PLUS 100 ML IV SCH ×2 (17:56→23:40)
[2018-04-24 20:00] VITALS: BP 134/80
[2018-04-24] MEDS: cefTRIAXone SOD 2 GM in D5W MINI-BAG PLUS 50 ML IV SCH (21:53)
--- NOTE | 2018-04-24 23:07 | IPN ---
DATE: 04/24/2018 INFECTIOUS DISEASE PROGRESS NOTE Mr. Dixon states he is not feeling any better; he is very weak, he has decreased appetite. He developed acute kidney injury after he received diuretic, nonsteroidal anti-inflammatory drugs (NSAIDs) and gentamicin. His creatinine peaked at 3.45 on 04/23/2018. He was seen in consultation by Dr. Raymundo who started him on intravenous (IV) fluids, discontinued all nephrotoxic drugs. Today, his creatinine has decreased to 2.6, and his urine output has markedly improved. He denies any nausea, vomiting, diarrhea, abdominal pain. He has had no recurrent fevers since on antibiotics. His major complaint today is his low back pain, which he describes at the lumbar area. He is not able to sit on his own, which usually is not a problem for him, even though he uses a walker due to degenerative disc disease he does not need help getting out of bed. He had multiple studies on his lower back, although MRI could not be obtained due to his automatic implantable cardioverter defibrillator (AICD) but CT of lumbar spine has been negative. On physical exam, temperature is 98.4, pulse 87, respirations 18, blood pressure 134/80, oxygen saturation (O2 sat) 97% on 1 liter nasal cannula. The patient at baseline uses 2 liters at bedtime overnight only. Heart: Normal S1, S2 with a systolic ejection murmur 2/6 best heard at the left lower sternal border. Lungs: Diminished breath sounds at the bases but otherwise clear. Abdomen: Soft, nontender. No hepatosplenomegaly. Obese. Extremities: Trace edema. Transesophageal echocardiogram done on 04/19/2018 shows no vegetation seen on the cardiac valves, severe reduction in ejection fraction of 30%, moderate aortic valve sclerosis with mild aortic regurgitation, mild annular calcification and mild mitral regurgitation, moderate TR Pacemaker lead seen in the superior vena cava. No associated vegetations attached to the visualized portion of the leads. IMPRESSION: 1. Enterococcal bacteremia, Enterococcus (E) faecalis of unknown origin with four positive blood cultures, very concerning for endocarditis. Although transesophageal echocardiogram (LAUREANO) done 48 hours after blood cultures were done was negative, I am still concerned about the possible diagnosis of endocarditis. He had repeat cultures done on 04/19/2018 and 04/20/2018 he had 48 hours of antibiotics. 2. Low back pain with a differential diagnosis including severe spinal stenosis, degenerative disc disease versus discitis. We have imaged his back but mostly without contrast. I will review all the studies with Dr. Mcbride or Dr. Tong to make sure that we could not have missed an epidural abscess or discitis or whether he may benefit from a bone scan to rule out also the possibility. 3. Acute kidney injury on chronic kidney disease. This is improving. His creatinine peaked at 3.45, currently 2.6. Gentamicin was discontinued. The patient is currently on ampicillin and Rocephin for presumptive endocarditis. PLAN: The patient could have a peripherally inserted central catheter (PICC) line. He will need probably prolonged IV antibiotics. Continue with current regimen, ampicillin 2 grams IV every 6 hours, Rocephin 2 grams IV daily. Will review imaging study with radiology. [place]
[2018-04-25] VITALS (12 sets, daily range): BP systolic 122–172; BP diastolic 70–82
[2018-04-25] MEDS: ACETAMINOPHEN TAB 650MG DOSE (2X325MG) PO PRN (00:37)
[2018-04-25] MEDS: MORPHINE 4 MG/ML 1ML VIAL/SYRINGE (J2270) IV PRN (04:36)
[2018-04-25] MEDS: AMPICILLIN SOD 2 GM in D5W MINI-BAG PLUS 100 ML IV SCH ×3 (05:15→21:05)
[2018-04-25] MEDS: SLF 3 ML SYR IV SCH ×3 (05:17→22:36)
[2018-04-25 05:56] LABS: HEMATOCRIT 28.4 % (42.0-52.0); HEMOGLOBIN 8.5 g/dl (13.5-17.5); MEAN CORPUSCULAR HEMOGLOBIN 23.2 pg (27.0-33.0); MEAN CORPUSCULAR HGB CONC 29.9 g/dl (32.0-36.5); MEAN CORPUSCULAR VOLUME 77.6 fl (80.0-96.0); PLATELET COUNT, AUTOMATED 151 10^3/uL (150-450); RED BLOOD COUNT 3.66 10^6/uL (4.30-6.10); WHITE BLOOD COUNT 6.5 10^3/uL (4.0-10.0)
--- NOTE | 2018-04-25 06:21 | IPN ---
DATE: 04/24/2018 SUBJECTIVE: The patient seen and examined this morning at the bedside. Reports he feels tired. Still does not have an appetite at all. He responded to IV fluids yesterday. Renal function is improving. There is improved urine output. His appetite is still poor so I am going to continue him on IV fluids today. VITAL SIGNS: Temperature 98.4, pulse 87, respiratory rate 18, blood pressure 134/80, saturating 97% on 1 liter nasal cannula. Intake yesterday was 1790. Urine output yesterday was 1125. Two incontinent voids. Weight on the bed scale today 93.2 kg. GENERAL: The patient is seen lying in bed, tired and fatigued appearing, but in no acute distress. Extraocular muscles are intact. Tongue is moist. Neck veins are mildly elevated. Heart sounds are regular, S1, S2. There is no significant edema in the dependent areas. Lungs show good air entry bilaterally. He is seen on nasal cannula. Abdomen is soft, obese and nontender. Extremities show dressings on the lower extremities and no edema. Genitourinary shows Hampton with urine. Neurologic: He is awake, oriented, interactive and conversational. LABS: Sodium 145, potassium 5, bicarbonate 22, BUN 70, creatinine 2.6, CRP 4, hemoglobin 8.4. INPATIENT MEDICATIONS: The patient continues on Ceftriaxone and ampicillin has been started. I ordered 1/2 normal saline to run at 60 mL/hr. He is continued on Isordil, dose is increased to 20 mg by mouth three times a day. Remainder of medications are unchanged from prior. PROBLEMS: 1. Acute kidney injury (JENNIFER) on chronic kidney disease (CKD) stage III. The patient had poor oral intake yesterday. He was subsequently given one liter of IV fluids. He responded. He has had improving urine output and renal function over the past 24 hours. His renal failure is secondary to a combination of IV NSAID, IV aminoglycoside, angiotensin receptor masood dysautoregulation and combination diuretics in the setting of diarrhea and colitis. He remains off of and nephrotoxins. I will continue him on judicious IV fluids seeing how his oral intake remains poor. We will keep a close eye on his respiratory status and volume status. Encourage oral intake as tolerated. 2. Diastolic and systolic congestive heart failure, ejection fraction (EF) 35%. Continue to hold diuretics in view of renal failure and poor oral intake. Continue to hold Entresto for the same reason. He is in renal recovery. Urine output is improved. I am giving him gentle IV fluids as his oral intake is poor and we will keep a close eye on his volume status. 3. Hypertension. Blood pressures are acceptable. I see the primary team increased the Isordil. He is not suitable for ABY or ARB at this time. MTDD
[2018-04-25 06:27] LABS: C REACTIVE PROTEIN QUANTITATIV 3.42 MG/DL (0.00-0.30); CREATININE FOR GFR 2.07 MG/DL (0.70-1.30); GLOMERULAR FILTRATION RATE 33.7 (>42); MAGNESIUM LEVEL 2.2 MG/DL (1.8-2.4); POTASSIUM SERUM 4.8 MEQ/L (3.5-5.1)
[2018-04-25] MEDS: APIXABAN 2.5 MG TAB (ELIQUIS) PO SCH ×2 (08:55→21:44)
[2018-04-25] MEDS: ASPIRIN 81 MG ENTERIC TAB PO SCH (08:55)
[2018-04-25] MEDS: FEBUXOSTAT 40 MG TABLET (ULORIC) PO SCH (08:55)
[2018-04-25] MEDS: ASCORBIC ACID 500 MG TAB PO SCH ×2 (08:56→21:45)
[2018-04-25] MEDS: MULTIVITAMINS/MINERALS THERAP 1 TAB PO SCH (08:56)
[2018-04-25] MEDS: SENOKOT S TAB PO SCH ×2 (08:56→21:44)
[2018-04-25] MEDS: FERROUS SULFATE 325MG TAB PO SCH ×2 (08:56→21:44)
[2018-04-25] MEDS: ATORVASTATIN 20 MG TAB PO SCH (08:56)
[2018-04-25] MEDS: LEVEMIR (INSULIN DETEMIR) 1 UNITS/0.01ML SC SCH ×2 (08:57→21:44)
[2018-04-25] MEDS: HumaLOG INSULIN (NovoLOG) PER UNIT SC SCH ×4 (08:57→21:00)
[2018-04-25] MEDS: LIDOCAINE 5% OINT 30 GM TOP SCH (08:57)
[2018-04-25] MEDS: ISOSORBIDE DIN. (ISORDIL) 20 MG TAB PO SCH ×3 (08:58→18:24)
[2018-04-25] MEDS: MIRALAX *UNIT DOSE* 17GM PACKET PO SCH (08:58)
[2018-04-25] MEDS: AQUAPHOR **100GM** OINT TOP SCH (08:58)
[2018-04-25] MEDS: CARVedilol 6.25 MG TAB PO SCH ×2 (08:59→21:45)
[2018-04-25] MEDS: traMADol 50 MG TAB PO PRN ×2 (08:59→19:26)
[2018-04-25] MEDS: cefTRIAXone SOD 2 GM in D5W MINI-BAG PLUS 50 ML IV SCH ×2 (09:04→21:45)
[2018-04-25] MEDS: CALCIUM CARBONATE 500 MG CHEW U/D PO PRN (13:24)
[2018-04-25] MEDS: ONDANSETRON 4MG/2ML VIAL (J2405) IV PRN (13:30)
--- NOTE | 2018-04-25 14:11 | IPNPDOC ---
Text Note Date of Service The patient was seen on 04/25/18. NOTE Subjective: Patient states that this back pain is controlled. He refused workup with physical therapy at this time. Denies any chest pain or palpitations. Has mild right upper quadrant tenderness. Objective: Vitals: (see below) General: No acute distress, laying comfortably in bed. HEENT: Moist mucous membranes. Neck: No JVD or lymphadenopathy Cardiac: RRR, No murmurs Pulm: Diminished sounds at the bases b/l. No wheezing, rhonchi Abd: Minimal tenderness in the right upper quadrant. No rebound guarding or rigidity./ND + BS Ext: Trace edema bilateral lower extremities. No cyanosis Labs (see below) Assessment/Plan 1. Acute on chronic renal insufficiency. Baseline CK D stage III. Likely secondary to gentamicin, entresto, bacteremia. Improved. Appreciate 2. Chronic anemia likely secondary to anemia of chronic kidney disease- discuss with Dr. Raymundo who recommends 1 unit PRBC. 3. Enterococcus faecalis bacteremia- ? Source of colitis versus chronic cholecystitis. Appreciate Dr. Vang. On Rocephin and and ampicillin per Dr Palumbo. LAUREANO negative for vegetation. 4. Chronic back pain- CT lumbar spine appreciated. Patient states symptoms are improving. Pain management consulted. 5. Combined systolic and diastolic heart failure- compensated at this time diuretics and entresto on hold. Cont Statin, ASA. 6. Chronic AF - on eliquis. Cont bb 7. DM - cont levemir SSI 8. Diarrhea - resolved. 9. CAD - cont asa/bb/statin. Entresto held given renal function DVT prophy:On eliquis VS,Fishbone, I+O VS, Fishbone, I+O Laboratory Tests 04/25/18 05:34 Red Blood Count 3.66 L, Mean Corpuscular Volume 77.6 L, Mean Corpuscular Hemoglobin 23.2 L, Mean Corpuscular Hemoglobin Concent 29.9 L, Red Cell Distribution Width 17.6 H, Calcium Level 8.0 L Vital Signs Date Time Temp Pulse Resp B/P (MAP) Pulse Ox O2 Delivery O2 Flow Rate FiO2 04/25/18 13:24 132/78 04/25/18 12:00 98.2 89 17 99 Nasal Cannula 2.0 I&O- Last 24 Hours up to 6 AM 04/25/18 06:00 Intake Total 1930 ml Output Total 2200 ml Balance -270 ml BISHOP LEVY MD Apr 25, 2018 14:11
[2018-04-25] MEDS ORDERED: LIDOCAINE 1% MDV 20ML VIAL As Ordered ONE (14:40)
[2018-04-25] MEDS: SODIUM CHLORIDE 0.9% INJ 10 ML SYR IV SCH (18:24)
[2018-04-25] MEDS: SODIUM CHLORIDE 0.9% INJ 10 ML SYR IV PRN (22:36)
[2018-04-26] VITALS: BP 120/74
[2018-04-26] MEDS: ANALGESIC BALM CRM 120 GM TOP PRN (00:26)
[2018-04-26] MEDS: AMPICILLIN SOD 2 GM in D5W MINI-BAG PLUS 100 ML IV SCH ×5 (00:26→23:57)
[2018-04-26] MEDS ORDERED: NS 0.45% 500 ML IV SCH (01:45)
[2018-04-26 04:00] VITALS: BP 158/89
[2018-04-26] MEDS: SODIUM CHLORIDE 0.9% INJ 10 ML SYR IV SCH ×2 (05:03→17:46)
[2018-04-26] MEDS: SLF 3 ML SYR IV SCH ×3 (05:04→21:01)
[2018-04-26] MEDS: traMADol 50 MG TAB PO PRN ×3 (05:06→22:10)
--- NOTE | 2018-04-26 05:19 | IPN ---
DATE: 04/25/2018 Mr. Dixon continues to complain of back pain. Now he describes his back pain as being mid-thoracic. He is not able to get up out of bed and has not been doing physical therapy. His appetite is poor. He only had some eggs and bread today. He is irritated by too many studies. He had a peripherally inserted central catheter (PICC) line placed today. CT of the abdomen and pelvis on 04/23/2018. LABORATORY DATA: White count of 6.5, hemoglobin 8.5, hematocrit 28.4, platelets 151. Sodium 143, potassium 4.8, chloride 113, BUN 56, creatinine 2.07 which is markedly improved from 3.45, glucose 138, calcium 8, magnesium 2.2, C-reactive protein (CRP) 3.42 down from 8.96. PHYSICAL EXAMINATION: HEART: Normal S1, S2 with a systolic ejection murmur 2/6 at the left upper sternal border. LUNGS: Diminished breath sounds at the bases. ABDOMEN: Abdomen is soft, nontender. No hepatosplenomegaly. EXTREMITIES: No edema. The patient has dressings on both legs for venous stasis changes but no evidence of infection. IMPRESSION: 1. Enterococcus faecalis bacteremia on four cultures from 04/16/2018 and 04/17/2018 with no source of infection. The only place that the patient has not been imaged and has complained of is mid thoracic pain. Today on physical exam, he has mid-thoracic tenderness around L4-L5, L5-L6 area, although that also changes with his position. I would suggest imaging his thoracic spine with a CT or tagged red blood cell scan. A transesophageal echocardiogram done on 04/19/2018 was negative for a vegetation, although my suspicion for endocarditis was quite high. 2. Congestive heart failure with ejection fraction of 30%. The patient has a pacer defibrillator and due to the fact that he has a foreign body I would treat him with at least 4 weeks of intravenous (IV) antibiotics. 3. History of colon cancer which puts him at high risk for Enterococcus faecalis bacteremia, status post resection in 2018. PLAN: Continue ampicillin/ with synergy Rocephin, image -thoracic spine to rule out discitis as the patient has difficulty with mobility from his back pain. Obtain complete blood count (CBC), C-reactive protein (CRP), sedimentation rate, and basic profile in the morning. MTDD
[2018-04-26 05:29] LABS: HEMATOCRIT 30.8 % (42.0-52.0); HEMOGLOBIN 9.3 g/dl (13.5-17.5); MEAN CORPUSCULAR HEMOGLOBIN 24.3 pg (27.0-33.0); MEAN CORPUSCULAR HGB CONC 30.2 g/dl (32.0-36.5); MEAN CORPUSCULAR VOLUME 80.6 fl (80.0-96.0); PLATELET COUNT, AUTOMATED 162 10^3/uL (150-450); RED BLOOD COUNT 3.82 10^6/uL (4.30-6.10); WHITE BLOOD COUNT 6.9 10^3/uL (4.0-10.0)
[2018-04-26 05:56] LABS: C REACTIVE PROTEIN QUANTITATIV 3.74 MG/DL (0.00-0.30); CALCIUM LEVEL 8.5 MG/DL (8.8-10.2); CREATININE FOR GFR 1.77 MG/DL (0.70-1.30); GLOMERULAR FILTRATION RATE 40.3 (>42); MAGNESIUM LEVEL 2.1 MG/DL (1.8-2.4); POTASSIUM SERUM 4.8 MEQ/L (3.5-5.1)
--- NOTE | 2018-04-26 06:54 | IPN ---
DATE OF SERVICE: 04/25/2018 SUBJECTIVE: Patient seen and examined this morning at the bedside. He complains of weakness. His appetite remains poor. He complains of abdominal discomfort. VITAL SIGNS: Temperature 97.6, pulse 86, respiratory rate 18, blood pressure 140/80, saturating 96% on 2 liters nasal cannula. Intake yesterday was 2069, urine output yesterday was 1924, net positive 140. Weight on the bed scale today is 92.1 kg, which is decreased from prior. GENERAL: The patient is seen lying in bed, appears very fatigued, pale and frail, but in no acute distress. Extraocular muscles are intact. He makes good eye contact. Tongue and oral mucosa is dry. Neck is supple. Jugular veins are not elevated. Heart sounds are regular, S1, S2. Lungs have diminished breath sounds at the base, otherwise clear. Abdomen shows tenderness in the epigastrium. There are bowel sounds. Genitourinary shows Hampton catheter with urine. Extremities are negative for edema. Peripheral pulses are palpable. LABS: Hemoglobin 8.5, platelets 151, sodium 143, potassium 4.8, BUN 56, creatinine 2.0, CRP down to 3.4. INPATIENT MEDICATIONS: He continues on ampicillin and ceftriaxone. His medications are unchanged from prior. PROBLEMS: 1. Acute kidney injury (JENNIFER) on chronic kidney disease (CKD) stage III secondary to IV Toradol, aminoglycoside, ARB dysautoregulation (ENTRESTO), bacteremia, colitis, use of diuretics. He has received gentle IV fluids for the past two days. His renal function is improving. It is not yet back at baseline. I encourage oral intake which remains suboptimal. Today I would prefer he be given blood transfusion rather than further IV fluid. Continue with urine output monitoring to Hampton catheter and daily renal panel. 2. Systolic and diastolic congestive heart failure. Volume status is acceptable at this time. Continue to hold diuretics and ENTRESTO. He received judicious IV fluid the past two days and today he is for one unit of packed red blood cells. Volume status is reassessed daily. 3. Anemia with iron deficiency. T-saturation of 13% and chronic kidney disease. Probable also related to sepsis and inflammatory state. Hemoglobin is suboptimal at 8.5 and I suggest a one unit transfusion in lieu of IV fluid today. I will hold off IV iron given his recent bacteremia. 4. Abdominal pain. He had E. Faecalis bacteremia felt to be secondary to colitis. Followed by general surgery and infectious diseases is managing his antimicrobial. He is clinically improved, though still having inadequate oral intake and complained of abdominal pain. 5. Hypertension. Blood pressures are reasonable and no changes are being made to the regimen. MTDD
[2018-04-26 08:00] VITALS: BP 128/78
[2018-04-26 08:26] LABS: BILIRUBIN,DIRECT 0.1 MG/DL (0.0-0.2); BILIRUBIN,TOTAL 0.4 MG/DL (0.2-1.0); TOTAL PROTEIN 5.9 GM/DL (6.4-8.2)
[2018-04-26] MEDS: AQUAPHOR **100GM** OINT TOP SCH (09:00)
[2018-04-26] MEDS: CALCITRIOL 0.25 MCG CAP (S0169) PO SCH (09:28)
[2018-04-26] MEDS: ATORVASTATIN 20 MG TAB PO SCH (09:28)
[2018-04-26] MEDS: ISOSORBIDE DIN. (ISORDIL) 20 MG TAB PO SCH ×3 (09:29→17:45)
[2018-04-26] MEDS: ASCORBIC ACID 500 MG TAB PO SCH ×2 (09:29→21:00)
[2018-04-26] MEDS: APIXABAN 2.5 MG TAB (ELIQUIS) PO SCH ×2 (09:29→21:00)
[2018-04-26] MEDS: FERROUS SULFATE 325MG TAB PO SCH ×2 (09:29→21:00)
[2018-04-26] MEDS: CARVedilol 6.25 MG TAB PO SCH ×2 (09:29→21:00)
[2018-04-26] MEDS: FEBUXOSTAT 40 MG TABLET (ULORIC) PO SCH (09:30)
[2018-04-26] MEDS: MULTIVITAMINS/MINERALS THERAP 1 TAB PO SCH (09:30)
[2018-04-26] MEDS: ACETAMINOPHEN TAB 650MG DOSE (2X325MG) PO PRN (09:30)
[2018-04-26] MEDS: ASPIRIN 81 MG ENTERIC TAB PO SCH (09:30)
[2018-04-26] MEDS: SENOKOT S TAB PO SCH ×2 (09:30→21:00)
[2018-04-26] MEDS: HumaLOG INSULIN (NovoLOG) PER UNIT SC SCH ×4 (09:31→20:45)
[2018-04-26] MEDS: cefTRIAXone SOD 2 GM in D5W MINI-BAG PLUS 50 ML IV SCH ×2 (09:31→21:01)
[2018-04-26] MEDS: LEVEMIR (INSULIN DETEMIR) 1 UNITS/0.01ML SC SCH ×2 (09:31→21:01)
[2018-04-26] MEDS: MIRALAX *UNIT DOSE* 17GM PACKET PO SCH (09:32)
[2018-04-26] MEDS: LIDOCAINE 5% OINT 30 GM TOP SCH (09:32)
--- NOTE | 2018-04-26 09:58 | REP ---
CT LUMBAR SPINE WITHOUT CONTRAST: HISTORY: Back pain. COMPARISON: 04/17/2018. Disc bulges are present at the T11-12 and T12-L1 levels. There is minimal thecal sac compression. The neural foramina are patent. A diffuse disc bulge is present at the L1-2 level. There is minimal compression of the thecal sac. The L1 nerves exit the neural foramina without compression. A diffuse disc bulge is present at the L2-3 level. There is hypertrophy of the ligamenta flava and posterior articulating facets. These findings produce mild central canal stenosis. The L2 nerves exit the neural foramina without compression. A diffuse disc bulge is present at the L3-4 level. There is hypertrophy of the ligamenta flava and posterior articulating facets. These findings produce moderate central canal stenosis. The L3 nerves exit the neural foramina without compression. A diffuse disc bulge is present at the L4-5 level. There is hypertrophy of the ligamenta flava and posterior articulating facets. These findings produce moderate central canal stenosis. There is compression of the right L4 nerve in the neural foramen. The left L4 nerve exits the neural foramen without compression. A diffuse disc bulge is present at the L5-S1 level. There is minimal compression of the thecal sac. There is hypertrophy of the posterior articulating facets. There is compression of the L5 nerves in the neural foramina. The lumbar intervertebral discs are decreased in height. Vacuum phenomenon is present at the L5-S1 level. These findings are consistent with disc degeneration. A 1.4 cm nodule is present in the left adrenal gland. IMPRESSION: 1. Diffuse disc bulges at the L1-2 and L5-S1 levels with minimal thecal sac compression. There is compression of the L5 nerves in the neural foramina. 2. Mild central canal stenosis at the L2-3 level secondary to disc bulge, ligamentous and facet hypertrophy. 3. Moderate central canal stenosis at the L3-4 and L4-5 levels secondary to disc bulge, ligamentous, and facet hypertrophy. There is compression of the right L4 nerve in the neural foramen. There is no change compared to the previous study. Electronically Signed by Eddy Tong MD 04/26/2018 10:02 A
[2018-04-26] MEDS: CALCIUM CARBONATE 500 MG CHEW U/D PO PRN ×2 (11:24→23:42)
[2018-04-26 12:00] VITALS: BP 162/82
--- NOTE | 2018-04-26 14:44 | IPNPDOC ---
Text Note Date of Service The patient was seen on 04/26/18. NOTE Subjective:Pt states his abd pain has resolved and his appetite has improved. States he is willing to work with PT today and get out of bed. No radiculopathy. Chronic LBP. Objective: Vitals: (see below) General: No acute distress, laying comfortably in bed. HEENT: Moist mucous membranes. Neck: No JVD or lymphadenopathy Cardiac: RRR, No murmurs Pulm: Diminished sounds at the bases b/l. No wheezing, rhonchi Abd: NT./ND + BS Ext: Trace edema bilateral lower extremities. No cyanosis Labs (see below) Assessment/Plan 1. Acute on chronic renal insufficiency. Baseline CK D stage III. Likely secondary to gentamicin, entresto, bacteremia. Improved. Appreciate 2. Chronic anemia likely secondary to anemia of chronic kidney disease- discuss with Dr. Raymundo who recommends 1 unit PRBC. 3. Enterococcus faecalis bacteremia- ? Source of colitis versus chronic cholecystitis. Appreciate Dr. Vang. On Rocephin and and ampicillin per Dr Palumbo. LAUREANO negative for vegetation. 4. Chronic back pain- CT lumbar spine appreciated. Patient states symptoms are improving. Pain management consulted. CT Thoracic/lumbar spine today. 5. Combined systolic and diastolic heart failure- compensated at this time diuretics and entresto on hold. Cont Statin, ASA. 6. Chronic AF - on eliquis. Cont bb 7. DM - cont levemir SSI 8. Diarrhea - resolved. 9. CAD - cont asa/bb/statin. Entresto held given renal function DVT prophy:On eliquis VS,Fishbone, I+O VS, Fishbone, I+O Laboratory Tests 04/26/18 05:11 Red Blood Count 3.82 L, Mean Corpuscular Volume 80.6, Mean Corpuscular Hemoglobin 24.3 L, Mean Corpuscular Hemoglobin Concent 30.2 L, Red Cell Distribution Width 17.2 H Vital Signs Date Time Temp Pulse Resp B/P (MAP) Pulse Ox O2 Delivery O2 Flow Rate FiO2 04/26/18 14:11 20 93 Nasal Cannula 2.0 04/26/18 12:35 162/82 04/26/18 12:00 97.8 72 I&O- Last 24 Hours up to 6 AM0 04/26/18 06:00 Intake Total 1879 ml Output Total 900 ml Balance 979 ml BISHOP LEVY MD Apr 26, 2018 14:44
[2018-04-26 16:00] VITALS: BP 150/80
[2018-04-26 20:00] VITALS: BP 118/84
[2018-04-26] MEDS: ONDANSETRON 4MG/2ML VIAL (J2405) IV PRN (22:25)
[2018-04-27] VITALS (8 sets, daily range): BP systolic 150–170; BP diastolic 70–102
--- NOTE | 2018-04-27 00:20 | REP ---
PICC LINE INSERTION: History: Prolonged IV antibiotic usage. Procedure: The patient was interviewed, and informed consent was obtained. Ultrasound evaluation of the right upper extremity was utilized to identify and elysia a right upper extremity target vein, brachial vein. The patient was placed on the angiography table. The right arm was prepped and draped in the usual fashion. After patient safety time-out was articulated and agreed to, a micropuncture ultrasound-guided technique was performed to right basilic vein without technical difficulty. A 45 cm single-lumen #4.5-Kiswahili PICC line was passed with its tip positioned in the superior vena cava under fluoroscopic observation. The patient tolerated the procedure well. 0.1 minutes of fluoroscopy time was utilized. IMPRESSION: Right upper extremity PICC line insertion. Electronically Signed by Rosalio Mcbride MD 04/27/2018 07:52 P
[2018-04-27] MEDS: SLF 3 ML SYR IV SCH ×3 (05:49→22:00)
[2018-04-27] MEDS: SODIUM CHLORIDE 0.9% INJ 10 ML SYR IV SCH ×2 (05:49→17:46)
[2018-04-27] MEDS: AMPICILLIN SOD 2 GM in D5W MINI-BAG PLUS 100 ML IV SCH ×3 (05:49→17:46)
[2018-04-27 06:07] LABS: HEMATOCRIT 32.5 % (42.0-52.0); HEMOGLOBIN 9.6 g/dl (13.5-17.5); MEAN CORPUSCULAR HEMOGLOBIN 23.5 pg (27.0-33.0); MEAN CORPUSCULAR HGB CONC 29.5 g/dl (32.0-36.5); MEAN CORPUSCULAR VOLUME 79.7 fl (80.0-96.0); PLATELET COUNT, AUTOMATED 168 10^3/uL (150-450); RED BLOOD COUNT 4.08 10^6/uL (4.30-6.10); WHITE BLOOD COUNT 9.1 10^3/uL (4.0-10.0)
[2018-04-27 06:38] LABS: C REACTIVE PROTEIN QUANTITATIV 3.67 MG/DL (0.00-0.30); CALCIUM LEVEL 8.1 MG/DL (8.8-10.2); CREATININE FOR GFR 1.51 MG/DL (0.70-1.30); GLOMERULAR FILTRATION RATE 48.5 (>42); MAGNESIUM LEVEL 1.9 MG/DL (1.8-2.4); POTASSIUM SERUM 5.1 MEQ/L (3.5-5.1)
[2018-04-27] MEDS: HumaLOG INSULIN (NovoLOG) PER UNIT SC SCH ×4 (07:30→20:05)
--- NOTE | 2018-04-27 08:43 | IPN ---
DATE: 04/26/2018 SUBJECTIVE: Patient is seen and examined this morning at the bedside. He denies any acute overnight complaints. Reports he got up out of bed today. He received 1 unit of packed red blood cells overnight last night and he feels his appetite is improving as well. He had a CT scan of his spine done today for his back pain. VITAL SIGNS: Temperature 97.4, pulse 87, respiratory rate 20, blood pressure 150/80, saturating 97% on 2 liters nasal cannula. Intake yesterday was 1770, urine output yesterday was 875, urine output thus far today is 1000 mL. Weight on the bed scale today is 93.3 kg, which is fairly similar to his previous days. GENERAL: The patient is seen lying in bed, awake, alert, no acute distress, appears fatigued. Extraocular muscles are intact. Conjunctiva shows decreased pallor. Tongue is moist. Nasal cannula is in place. The jugular veins are not elevated. Cardiac irregularly irregular. Palpable radial pulse. Trace edema in the lower extremities. Lungs diminished breath sounds at the base, faint crackle, otherwise clear. Abdomen soft, nontender to moderate palpation. Genitourinary shows Hampton catheter with urine. Extremities show dressings on the lower extremities and some trace edema and ecchymosis on mostly his right upper extremity. Skins shows a lesion on his left cheek. LABS: White count 6.9, hemoglobin 9.3, sodium 143, potassium 4.8, bicarbonate 25, BUN 47, creatinine 1.7, CRP 3.7. INPATIENT MEDICATIONS: Reviewed by myself. He is off of IV fluids. He continues on ceftriaxone and ampicillin per the primary team. Remainder of medications are unchanged from prior. PROBLEMS: 1. Acute kidney injury (JENNIFER) on chronic kidney disease (CKD) stage III, multifactorial and secondary to IV NSAID, aminoglycoside, ARB dysautoregulation (entresto), bacteremia, colitis, use of diuretics. Off of IV fluids. Encourage oral intake. Renal function is improving towards baseline. Continues with Hampton catheter for monitoring of urine output and this can be discontinued once the patient is more ambulatory. 2. Systolic and diastolic congestive heart failure. Volume status is acceptable at present. Diuretics and Entresto remain on hold. No further IV fluid to be given. Oral intake is encouraged as tolerated. Volume status is reassessed daily. Diuretics will be resumed as needed. 3. Anemia with iron deficiency. Transferrin saturation of 13% and CKD underlying. Anemia also likely related to sepsis and inflammatory state. He received a unit of packed red blood cells with improvement in the hemoglobin. Hold off IV iron given recent bacteremia. 4. Hypertension. Blood pressures are reasonable and no changes are being made. MTDD
[2018-04-27] MEDS: AQUAPHOR **100GM** OINT TOP SCH (09:00)
--- NOTE | 2018-04-27 09:44 | REP ---
CT THORACIC SPINE WITHOUT CONTRAST: HISTORY: Lumbar pain. The thoracic spine is visualized from T1 to T11. There is no acute fracture or subluxation. A disc bulge is present at the T10-11 level. There is minimal narrowing of the spinal canal. The T10 neural foramina are patent. There is no other definite disc bulge or herniation. The remaining neural foramina are patent. There is loss of height of several mid and lower thoracic intervertebral discs. Anterior osteophytes are present throughout the thoracic spine. Parenchymal density is present in the right lung, consistent with atelectasis or infiltrate. Bilateral pleural effusions are present. IMPRESSION: 1. Degenerative change as described above. 2. Right lower lobe atelectasis or infiltrate and bilateral pleural effusions. Electronically Signed by Eddy Tong MD 04/27/2018 09:54 A
[2018-04-27] MEDS: FERROUS SULFATE 325MG TAB PO SCH ×2 (09:55→20:19)
[2018-04-27] MEDS: MULTIVITAMINS/MINERALS THERAP 1 TAB PO SCH (09:55)
[2018-04-27] MEDS: ASCORBIC ACID 500 MG TAB PO SCH ×2 (09:55→20:19)
[2018-04-27] MEDS: FEBUXOSTAT 40 MG TABLET (ULORIC) PO SCH (09:55)
[2018-04-27] MEDS: APIXABAN 2.5 MG TAB (ELIQUIS) PO SCH ×2 (09:56→20:19)
[2018-04-27] MEDS: ASPIRIN 81 MG ENTERIC TAB PO SCH (09:56)
[2018-04-27] MEDS: traMADol 50 MG TAB PO PRN (09:57)
[2018-04-27] MEDS: CARVedilol 6.25 MG TAB PO SCH ×2 (09:57→20:20)
[2018-04-27] MEDS: ISOSORBIDE DIN. (ISORDIL) 20 MG TAB PO SCH ×3 (09:57→17:45)
[2018-04-27] MEDS: SENOKOT S TAB PO SCH ×2 (09:58→20:21)
[2018-04-27] MEDS: MIRALAX *UNIT DOSE* 17GM PACKET PO SCH (09:58)
[2018-04-27] MEDS: cefTRIAXone SOD 2 GM in D5W MINI-BAG PLUS 50 ML IV SCH ×2 (09:58→20:16)
[2018-04-27] MEDS: ATORVASTATIN 20 MG TAB PO SCH (09:58)
[2018-04-27] MEDS: LEVEMIR (INSULIN DETEMIR) 1 UNITS/0.01ML SC SCH ×2 (09:59→20:21)
[2018-04-27] MEDS: LIDOCAINE 5% OINT 30 GM TOP SCH (10:00)
[2018-04-27] MEDS: ONDANSETRON 4MG/2ML VIAL (J2405) IV PRN (10:11)
--- NOTE | 2018-04-27 12:30 | CR ---
DATE OF CONSULTATION: 04/27/2018 REQUESTING CAMOUFLAGE ASSEMBLER: Panda Foley MD REASON FOR CONSULTATION: Irretractable back pain. HISTORY OF PRESENT ILLNESS: This is a 72-year-old white male who presented to [facility] emergency department with extreme diarrhea and weakness on 04/14/2018 and was evaluated by Dr. Lira. The patient admitted to weakness and increased diarrhea that progressed over the course of 48 hours. A week prior he had met with cardiology. He was started on cholestyramine. The patient was worked up for acute kidney injury and dehydration. There was concern for bacteremia and Dr. Lozada was consulted. Additionally, the patient then described acute lumbar back pain. Blood cultures were positive x4 for Enterococcus Faecalis. There was an order to stop cefepime and initiation of ceftriaxone and vancomycin. CT lumbar and thoracic imaging showed degenerative changes, canal stenosis, right lower lobe atelectasis or infiltrate and bilateral pleural effusions, but no acute cortical defects, bony lesions and/or erosions. I might add multiple bridging osteophytes which could be indicative of ankylosing spondylitis. On 04/19, Dr. Vang was consulted for history of cholecystitis and recent blood cultures positive for Enterococcus. There was no evidence of cholecystitis on ultrasound or CT scan. He did not feel convinced that this was of cholecystitis. On 04/23, Dr. Raymundo was consulted for acute renal failure superimposed on chronic kidney disease. He recommended gentle rehydration. Dr. Palumbo was consulted on 04/24 as the patient was not feeling better, continued to have weakness and decreased appetite. She mentioned concern about a possible discitis and thought a bone scan may be beneficial since the patient is unable to have MRI secondary to pacer. Additionally, PICC line was ordered with continued regimen of ampicillin 2 grams IV every 6 hours, Rocephin 2 grams IV daily. On 04/26, Dr. Foley requested an orthopedic consult. MEDICATION LIST: See attached list. They were reviewed. ALLERGIES: 1. SULFA antibiotics intermediate hives and dizziness. 2. OXYCODONE adverse reaction mild, hallucinates. PAST MEDICAL HISTORY: 1. Chronic back pain with degenerative disc disease, stenosis and radiculopathy. 2. Atrial fibrillation. 3. Diastolic and systolic congestive heart failure (CHF). 4. Chronic artery disease. 5. Hypertension. 6. Diabetes mellitus. 7. Obesity. 8. Chronic kidney disease stage III. 9. Gout. 10. History of colon cancer and resection. 11. History of skin cancer. 12. Mitral valve disorder. 13. Anemia. 14. Hyperlipidemia. PAST SURGICAL HISTORY: 1. Coronary artery bypass times two. 2. Colonoscopy. 3. Pacer implantation. 4. Cardiac ablation. 5. Appendectomy. 6. Cataract surgery. 7. Sigmoid colon resection. 8. Basal cell carcinoma excision. FAMILY HISTORY: Positive for coronary artery disease, diabetes. SOCIAL HISTORY: He lives with his at home. He ambulates independently with the assistance of a walker. He is a former smoker and just occasionally has alcohol. Denies ethanol intake or illicit drugs. REVIEW OF SYSTEMS: Reports weakness, denies fever, chills, malaise or night sweats. EYES: Denies dizziness or vision change. ENT: Denies headaches, dysphagia nasal bleeding. SKIN: He has multiple bruises and skin breaks which are his chronic norm. PULMONARY: Denies chest pain, shortness of breath, dyspnea. CARDIOVASCULAR: Denies chest pain, palpitations, orthopnea, lightheadedness. GASTROINTESTINAL: He is having bowel movements, which are watery. Denies vomiting, abdominal pain, constipation, just watery stools. GENITOURINARY: Denies dysuria, incontinence or hematuria. HEMATOLOGIC: He has fairly standard chronic bruising. MUSCULOSKELETAL: Sharp low back pain with intermittent radiating leg discomfort. PHYSICAL EXAMINATION: Vitals as of 8 o'clock on 04/27/2018, temperature 97.6 temporal, pulse 98, respiratory rate 20, blood pressure 170/78, pulse oximetry 96, O2 delivered nasal cannula, O2 flow rate 2.0. He is a pleasant obese male in no acute distress. He is alert and orientated times three, resting fairly comfortable in the hospital bed. He does have notable skin breaks which are covered by adhesive bandage at the left forearm. His low lumbar region is exquisitely tender to palpation. 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 Radial pulses 2+. Brisk capillary refill. He can move his upper extremities throughout range without limitation. Bilateral lower extremities he can do straight leg raises, move the hips, knees and ankles without any significant limitations. He can wiggle his toes just fine. Distal pulses intact. He can wiggle the toes. Brisk capillary refill. No gross edema in the lower extremities. Neuro exam: Normal speech. Cranial nerves intact throughout. Psych: He is alert and orientated times three. Mood and affect are appropriate. He is a little restless secondary to pain. Head normocephalic. Eyes pupils equal, round, and reactive to light and accommodation. ENT atraumatic. Tongue midline. Nares patent. Mucous membranes are moist, pink. Neck supple. Chest exam: Chest rises symmetrically. Abdomen soft, nontender times four. CT imaging results of the lumbar and thoracic spine as read above. Updated laboratory as of 04/27/2018 at 0550 hours: WBC 9.1, which is trending up from 6.9 as taken on 04/26, RBC 4.08, hemoglobin 9.6. Hematocrit 32.5, MCV 79.7, MCH 23.5, MCHC 29.5, RDW 17.4, platelet count 168. Microbiology on 04/17/2018 at 1136 hours: Blood culture venous complete showed Enterococcus Faecalis. Most updated venous blood completed on 04/19 and 04/20/2018 showed no growth after 5 days. Chemistry as of 04/27/2018 at 0550 hours: Sodium 145, potassium 5.1, chloride 112, carbon dioxide 24, anion gap 9, BUN 36, creatinine 1.51, GFR 48.5, fasting glucose 111, calcium 8.1, magnesium 1.9, C-reactive protein 3.67. ASSESSMENT: 1. Irretractable lumbar back pain in a patient with overlapping chronic lumbar spondylosis, degenerative disc disease, stenosis. Recent admission for vague onset of weakness and diarrhea, concern for pyogenic vertebral osteomyelitis, i.e. discitis. We are awaiting bone scan results as ordered. I believe it to be a three-phase bone scan, I am not sure if that includes technetium, TC99M and gallium 67. It is felt that the both of these is more specific and more sensitive than technetium alone, but will await initial results. In the interim, medicine will continue treating him for is septicemia. The patient reports his appetite has increased which is good sign. Further considerations would include consultation by our spine surgeon, Dr. Raymond Esparza, if there is concern for pyogenic vertebral osteomyelitis. Of note, his blood cultures were positive Enterococcus Faecalis, which would not seem to be the most typical pathogen with discitis. If his results are negative, he would likely be a candidate for chronic pain management after recovering from his medical treatment.
[2018-04-27] MEDS: PANTOPRAZOLE 40MG TAB (PROTONIX) PO SCH (14:25)
--- NOTE | 2018-04-27 15:41 | CR ---
DATE OF CONSULTATION: 04/26/2018 This is in addition to LAUREN Toscano's note. Patient was seen today both by our PA and myself. There has been concern about whether he has discitis. Patient was admitted approximately 2 weeks ago and has had some issues with sepsis. He has also had bacterial cultures that were positive for Enterococcus faecalis. He has been treated with intravenous (IV) antibiotics. There has been involvement of general surgery and the renal service as well as infectious disease. We were asked to see if there was a possibility of discitis. Unfortunately, the patient is unable to undergo MRI scan due to a pacemaker. A CT scan has been obtained of his thoracic and lumbar spine. Patient complains primarily of thoracic spine pain to me. On exam, he is grossly neurologically intact in terms of motor function distally. His back he reports some tenderness throughout his thoracic spine, but I could not really determine a focal tenderness. His CT scans were reviewed. I also looked at these with Dr. Esparza. They were interpreted as having degenerative changes. There is no clear evidence of discitis on these films. There is some evidence of some non-marginal osteophytes off the anterior aspect of the spine, particularly the thoracic spine that could be consistent with DISH or possibly some ankylosing spondylitis. The thoracic spine report was consistent with degenerative changes in his thoracic spine and right lower lobe atelectasis or infiltrate and bilateral pleural effusions. His CT scan of his lumbar spine showed some disc bulges at several levels, mild stenosis at L2-3, moderate stenosis at L3-4 and L4-5. Some compression of the right L4 nerve in the neural foramen, but again, no clear evidence of discitis as mentioned. IMPRESSION: Challenging case with patient with some bacteremia, some ongoing back pain, but when I talk to him his history was somewhat inconsistent and I think he had a hard time remembering exactly the duration of his symptoms. I think it is unlikely that he has any sort of discitis process ongoing but a bone scan has been ordered to see if that will help localize something in his spine. It is going to show increased activity likely throughout his spine because of his degenerative disc disease. I would consider further imaging of his chest such as an updated chest x-ray or chest CT given the findings on his thoracic spine CT. Will follow for now. Thank you for the consult.
--- NOTE | 2018-04-27 15:56 | REP ---
Three-phase bone scan of the thoracic and lumbar spine and chest region. History: Thoracic and lumbar pain. Question discitis. Technique: 22.0 mCi technetium 99m MDP is injected and standard three-phase imaging was acquired. Findings: Anterior and posterior flow study are unremarkable. Blood pool images show no focal area of increased uptake in the thoracic or lumbar spine region to suggest inflammatory focus. Delayed scan images show normal distribution of skeletal tracer with uptake in bilateral kidneys. There is mildly increased uptake on either side of the L1-2 disc, which may reflect degenerative disc disease. CT study from yesterday in the lumbar spine showed degenerative disc disease at each lumbar and lower thoracic level. There is no other area of increased uptake on today's bone scan images. There is no evidence to suggest metastatic disease. No other abnormality. Impression: Minimally increased uptake on either side of the L1-2 disc consistent with degenerative disc changes. No hyperemia or abnormal flow. Otherwise negative three-phase bone scan. Electronically Signed by Rosalio Mcbride MD 04/27/2018 07:57 P
--- NOTE | 2018-04-27 16:14 | IPNPDOC ---
Text Note Date of Service The patient was seen on 04/27/18. NOTE Subjective: Participating with PTJaret Mckeon by ortho today. Denies any new compl aints. Objective: Vitals: (see below) General: No acute distress, laying comfortably in bed. HEENT: Moist mucous membranes. Neck: No JVD or lymphadenopathy Cardiac: RRR, No murmurs Pulm: Diminished sounds at the bases b/l. No wheezing, rhonchi Abd: NT./ND + BS Ext: Trace edema bilateral lower extremities. No cyanosis Labs (see below) Assessment/Plan 1. Acute on chronic renal insufficiency. Baseline CK D stage III. Likely secondary to gentamicin, entresto, bacteremia. Improved. Appreciate 2. Chronic anemia likely secondary to anemia of chronic kidney disease- discuss with Dr. Raymundo who recommends 1 unit PRBC. 3. Enterococcus faecalis bacteremia- ? Source of colitis versus chronic cho lecystitis. Appreciate Dr. Vang. On Rocephin and and ampicillin per Dr Palumbo. LAUREANO negative for vegetation. Bone scan negative. 4. Chronic back pain- CT lumbar spine appreciated. Patient states symptoms are improving. Pain management consulted. CT Thoracic/lumbar spine. Ortho consulted. 5. Combined systolic and diastolic heart failure- Restarted on torsemide by nephro. Entresto on hold. Cont Statin, ASA. 6. Chronic AF - on eliquis. Cont bb 7. DM - cont levemir SSI 8. Diarrhea - resolved. 9. CAD - cont asa/bb/statin. Entresto held given renal function DVT prophy:On eliquis VS,Fishbone, I+O VS, Fishbone, I+O Laboratory Tests 04/27/18 05:50 Red Blood Count 4.08 L, Mean Corpuscular Volume 79.7 L, Mean Corpuscular Hemoglobin 23.5 L, Mean Corpuscular Hemoglobin Concent 29.5 L, Red Cell Distribution Width 17.4 H, Calcium Level 8.1 L Vital Signs Date Time Temp Pulse Resp B/P (MAP) Pulse Ox O2 Delivery O2 Flow Rate FiO2 04/27/18 12:32 154/82 04/27/18 12:00 98.1 101 18 96 Nasal Cannula 2.0 I&O- Last 24 Hours up to 6 AM 04/27/18 05:59 Intake Total 1800 ml Output Total 1300 ml Balance 500 ml ABED,BISHOP MD Apr 27, 2018 16:14
[2018-04-27] MEDS: TORSEMIDE 20 MG TAB PO SCH (17:45)
--- NOTE | 2018-04-27 21:14 | IPNPDOC ---
Subjective Date Seen The patient was seen on 04/27/18. Subjective Chief Complaint/HPI . General: Reports: Fatigue, Malaise; Denies: Chills, Night Sweats Constitutional: Reports: Weakness, Fatigue; Denies: Chills Skin: Reports: Breakdown (sacrum ) Pulmonary: Denies: Dyspnea, Cough, Pleuritic Chest Pain, Other Symptoms Cardiovascular: Denies: Chest Pain, Palpitations, Orthopnea, Paroxysmal Noc. Dyspnea, Edema, Lt Headedness Gastrointestinal: Denies: Nausea, Vomiting, Abdominal Pain Musculoskeletal: Reports: Back Pain (continued low back complaints of pain) Objective Physical Examination General Exam: Positive: Alert, Cooperative, No Acute Distress Eye Exam: Positive: PERRLA, Conjunctiva & lids normal, EOMI; Negative: Sclera icteric, Ptosis ENT Exam: Positive: Atraumatic, Mucous membr. moist/pink, Pharynx Normal, Tongue Midline; Negative: Pharyngeal Edema Neck Exam: Positive: Supple; Negative: thyromegaly, Lymphadenopathy Chest Exam: Positive: Clear to auscultation, Normal air movement; Negative: Rales, Rhonchi, Wheezing, Diminished Heart Exam: Positive: Irregular Rhythm, Normal S1, Normal S2; Negative: Gallops, Murmurs, Rubs Abdomen Exam: Positive: BS Hyperactive, Soft; Negative: Tenderness, Hepatospenomegaly, Mass, Hernia Skin Exam: Positive: Lesion (b/l LE wrapped) Neuro Exam: Positive: Normal Speech Psych Exam: Positive: Oriented x 3 Assessment /Plan Assessment 1. Enterococcus faecalis BACTEREMIA most likely source GI patient with recent dx of colon ca -from four cultures from 04/16/2018 and 04/17/2018 with no source of infection. -Thoracic CT reviewed with radiologist personally and did not demonstrate concern for paraspinal abscess or joint space infection -Bone scan performed also was negative for discitis -Continue with Ampicillin and Rocephin for now, would likely repeat ECHO in next couple days, still not convinced he does not have endocarditis despite transesophageal ECHO done on 04.19.18 -continue to monitor CRP, ESR -this could also represent a transient bacteremia picture 2. Congestive heart failure with ejection fraction of 30% - He has a pacer/AICD, cannot perform MRI of back -Because of foreign body recommending treatment at least 4 weeks of intravenous (IV) antibiotics. 3. History of colon cancer -high risk for E. faecalis s/p resection in 2018 Plan/VTE VTE Prophylaxis Ordered?: Yes (Eliquis 2.5 mg by mouth twice a day) Plan IVF: Initiate (normal saline and 50 mLs per hour for 12 hours) Diet: Make NPO (advance diet as tolerated in the morning) Activity: Continue Current Therapy: PT Diagnostics: Check Labs, Repeat Labs in AM, CT (abdomen and pelvis without contrast) Anticipated Discharge: Home VS, I&O, 24H, Fishbone Vital Signs/I&O Vital Signs Date Time Temp Pulse Resp B/P (MAP) Pulse Ox O2 Delivery O2 Flow Rate FiO2 04/27/18 20:20 80 164/81 04/27/18 16:00 2.0 04/27/18 16:00 98.1 19 98 Nasal Cannula I&O- Last 24 Hours up to 6 AM 04/27/18 06:00 Intake Total 1740 ml Output Total 1300 ml Balance 440 ml Laboratory Data 24H LABS Laboratory Tests 2 04/27/18 05:50: Nucleated Red Blood Cells % (auto) 0.0, Anion Gap 9, Glomerular Filtration Rate 48.5, Blood Urea Nitrogen 36H, Creatinine 1.51H, Sodium Level 145, Potassium Level 5.1, Chloride Level 112H, Carbon Dioxide Level 24, Calcium Level 8.1L, Magnesium Level 1.9, C-Reactive Protein, Quantitative 3.67H 04/27/18 12:01: Bedside Glucose (Misc Panel) 144H 04/27/18 17:02: Bedside Glucose (Misc Panel) 121H 04/27/18 20:00: Bedside Glucose (Misc Panel) 131H CBC/BMP Laboratory Tests 04/27/18 05:50 Red Blood Count 4.08 L, Mean Corpuscular Volume 79.7 L, Mean Corpuscular Hemoglobin 23.5 L, Mean Corpuscular Hemoglobin Concent 29.5 L, Red Cell Distribution Width 17.4 H, Calcium Level 8.1 L Microbiology Microbiology 04/20/18 Blood Culture - Final, Complete NO GROWTH AFTER 5 DAYS 04/19/18 Blood Culture - Final, Complete NO GROWTH AFTER 5 DAYS 04/17/18 Blood Culture - Final, Complete Enterococcus Faecalis 04/17/18 Blood Culture - Final, Complete Enterococcus Faecalis GME ATTESTATION GME ATTESTATION My faculty preceptor for this patient encounter was physically present during the encounter and was fully available. All aspects of the patient interview, examination, medical decision making process, and medical care plan development were reviewed and approved by the faculty preceptor. The faculty preceptor is aware and concurs with the plan as stated in the body of this note and will attest to such by his/her cosignature. ELBA MARIE DO Apr 27, 2018 21:14 Gregory Palumbo MD Apr 28, 2018 16:36
[2018-04-28] MEDS: AMPICILLIN SOD 2 GM in D5W MINI-BAG PLUS 100 ML IV SCH ×4 (00:35→17:34)
[2018-04-28] MEDS: traMADol 50 MG TAB PO PRN ×3 (00:51→18:26)
[2018-04-28 04:45] VITALS: BP 118/59
[2018-04-28] MEDS: SLF 3 ML SYR IV SCH ×3 (05:01→21:48)
[2018-04-28] MEDS: SODIUM CHLORIDE 0.9% INJ 10 ML SYR IV SCH ×2 (05:01→18:26)
[2018-04-28 05:19] LABS: HEMATOCRIT 31.6 % (42.0-52.0); HEMOGLOBIN 9.2 g/dl (13.5-17.5); MEAN CORPUSCULAR HEMOGLOBIN 23.5 pg (27.0-33.0); MEAN CORPUSCULAR HGB CONC 29.1 g/dl (32.0-36.5); MEAN CORPUSCULAR VOLUME 80.8 fl (80.0-96.0); PLATELET COUNT, AUTOMATED 160 10^3/uL (150-450); RED BLOOD COUNT 3.91 10^6/uL (4.30-6.10); WHITE BLOOD COUNT 7.9 10^3/uL (4.0-10.0)
[2018-04-28 05:31] LABS: C REACTIVE PROTEIN QUANTITATIV 5.12 MG/DL (0.00-0.30); CALCIUM LEVEL 7.7 MG/DL (8.8-10.2); CREATININE FOR GFR 1.68 MG/DL (0.70-1.30); GLOMERULAR FILTRATION RATE 42.9 (>42); MAGNESIUM LEVEL 1.8 MG/DL (1.8-2.4); POTASSIUM SERUM 4.6 MEQ/L (3.5-5.1)
[2018-04-28] MEDS: HumaLOG INSULIN (NovoLOG) PER UNIT SC SCH ×4 (07:30→21:00)
[2018-04-28 08:00] VITALS: BP 150/60
--- NOTE | 2018-04-28 08:25 | IPN ---
DATE: 04/01/2018 Bone scan results are reviewed and it shows essentially that there is some increased uptake around the L1-2 disc consistent with degenerative disk changes, otherwise felt to be an negative three-phase bone scan. At this point, we do not really have any evidence to suggest that there is a diskitis at any particular level. The CT scan and bone scan do not support this. We are unable to get an MRI scan. I would give consideration to further imaging of the chest for potential source there. I will discuss this with the (cut off).
--- NOTE | 2018-04-28 08:28 | IPN ---
DATE OF SERVICE: 04/27/2018 SUBJECTIVE: Patient is seen and examined this morning at the bedside. He complains of back pain that has been limiting his mobility. He is having an ongoing work-up with CT scans of the spine yesterday and a bone scan being done today. His renal function has recovered to baseline and I incidentally note pleural effusions on his recent imaging and I discussed with him that we re resuming diuretic therapy now. Patient denies shortness of breath at rest. He continues on unchanged amount of supplemental oxygen. VITAL SIGNS: Temperature 98.1, pulse 89, respiratory rate 19, blood pressure 160/70, saturating 98% on 2 liters nasal cannula. Intake yesterday was 2.2 liters, urine output was 1 liter, net positive 1.2 liters. Weight in the bed scale today is 93.5 kg. General: The patient is seen lying in bed, is present at the bedside. Extraocular muscles are intact. Tongue is moist. Nasal cannula is in place. Jugular veins are mildly elevated. Heart sounds are irregularly irregular. There is diminished breath sounds at the bases bilaterally. There is no tachypnea nor accessory muscle use. Abdomen soft and nontender. His Hampton catheter has been removed. Lower extremities shows the legs are wrapped in dressings from ankle to knee. There is trace edema of the dependent area. Neurologic: He is oriented, interactive, conversational, and appropriate. LABS: White count 9.1, hemoglobin 9.6, platelet 168, sodium 145, potassium 5.1, bicarbonate 24, BUN 36, creatinine 1.5, CRP 3.6. INPATIENT MEDICATIONS: Reviewed by myself. I have started him on torsemide 20 mg by mouth twice a day. Remainder of medications are unchanged from prior. PROBLEMS: 1. Acute kidney injury (JENNIFER) on chronic kidney disease (CKD) stage 3, multifactorial and related to IV non-steroidal anti-inflammatory drug (NSAID) use, aminoglycoside, angiotensin receptor masood, dysautoregulation, bacteremia, colitis, use of diuretics. His renal function has now recovered to his baseline. He is off of IV fluids. I note he has bilateral pleural effusions. There is mild hypervolemia on physical exam. Now that renal function has improved towards baseline, I am putting him back on diuretics. We will start off with torsemide 20 mg by mouth twice a day and continue with monitoring of urine output and daily renal panel. His Hampton catheter has been removed and he denies any issues with voiding. 2. Systolic and diastolic congestive heart failure. Ejection fraction of 30% continue to hold ENTRESTO. He is requiring supplemental oxygen, there are pleural effusions, there is mild hypervolemia on exam. His diuretics were held for several days due to the acute kidney injury that has not recovered. I am resuming him on an oral diuretic regimen. If he has a picture of acute kidney injury (JENNIFER) again then he can be diuresed with combination loop diuretic and albumin infusion. His last two albumins have been 1.8 to 2.0 and he is likely to respond favorably to albumin if renal function worsens with the diuretics I am starting today. 3. Anemia with iron deficiency. Transferrin saturation of 13% and chronic kidney disease underlying. Anemia also likely related to sepsis and inflammatory state. Hemoglobin has improved with the packed red blood cell tranfusion. I am holding off of IV iron given his recent bacteremia and ongoing antibiotics. 4. Hypertension. Blood pressures are uncontrolled and torsemide is being added. 5. Mild hyperkalemia. Potassium 5.1. We will see how he does with the loop diuretic and I am adding a 2 gram potassium restriction to his diet.
[2018-04-28] MEDS: FEBUXOSTAT 40 MG TABLET (ULORIC) PO SCH (08:36)
[2018-04-28] MEDS: APIXABAN 2.5 MG TAB (ELIQUIS) PO SCH ×2 (08:36→21:43)
[2018-04-28] MEDS: ASPIRIN 81 MG ENTERIC TAB PO SCH (08:37)
[2018-04-28] MEDS: ATORVASTATIN 20 MG TAB PO SCH (08:37)
[2018-04-28] MEDS: CARVedilol 6.25 MG TAB PO SCH ×2 (08:37→21:44)
[2018-04-28] MEDS: TORSEMIDE 20 MG TAB PO SCH (08:37)
[2018-04-28] MEDS: ISOSORBIDE DIN. (ISORDIL) 20 MG TAB PO SCH ×3 (08:37→17:34)
[2018-04-28] MEDS: PANTOPRAZOLE 40MG TAB (PROTONIX) PO SCH (08:37)
[2018-04-28] MEDS: cefTRIAXone SOD 2 GM in D5W MINI-BAG PLUS 50 ML IV SCH ×2 (08:38→21:43)
[2018-04-28] MEDS: CALCITRIOL 0.25 MCG CAP (S0169) PO SCH (08:38)
[2018-04-28] MEDS: ASCORBIC ACID 500 MG TAB PO SCH ×2 (08:38→21:43)
[2018-04-28] MEDS: FERROUS SULFATE 325MG TAB PO SCH ×2 (08:38→21:43)
[2018-04-28] MEDS: MULTIVITAMINS/MINERALS THERAP 1 TAB PO SCH (08:38)
[2018-04-28] MEDS: LIDOCAINE 5% OINT 30 GM TOP SCH (08:39)
[2018-04-28] MEDS: LEVEMIR (INSULIN DETEMIR) 1 UNITS/0.01ML SC SCH ×2 (08:39→21:42)
[2018-04-28] MEDS: MIRALAX *UNIT DOSE* 17GM PACKET PO SCH (08:40)
[2018-04-28] MEDS: SENOKOT S TAB PO SCH (08:40)
[2018-04-28 12:00] VITALS: BP 150/80
[2018-04-28] MEDS: AQUAPHOR **100GM** OINT TOP SCH (12:21)
[2018-04-28] MEDS ORDERED: LIDOCAINE 5% (LIDODERM) PATCH TD ONE (12:30)
--- NOTE | 2018-04-28 14:49 | IPNPDOC ---
Text Note Date of Service The patient was seen on 04/28/18. NOTE Subjective: Has increased back pain today while participating with PT. No CP /palpitations. Objective: Vitals: (see below) General: No acute distress, laying comfortably in bed. HEENT: Moist mucous membranes. Neck: No JVD or lymphadenopathy Cardiac: RRR, No murmurs Pulm: Diminished sounds at the bases b/l. No wheezing, rhonchi Abd: NT./ND + BS Ext: Trace edema bilateral lower extremities. No cyanosis Labs (see below) Assessment/Plan 1. Acute on chronic renal insufficiency. Baseline CK D stage III. Likely secondary to gentamicin, entresto, bacteremia. Improving. Appreciate Nephro input. 2. Chronic anemia likely secondary to anemia of chronic kidney disease- discuss with Dr. Raymundo who recommends 1 unit PRBC. 3. Enterococcus faecalis bacteremia- ? Source of colitis versus chronic cholecystitis. Appreciate Dr. Vang. On Rocephin and and ampicillin per Dr Landin. LAUREANO negative for vegetation. Bone scan negative. 4. Chronic back pain- CT lumbar spine appreciated. Patient states symptoms are improving. CT Thoracic/lumbar spine. Ortho consulted. Pain management consulted. Tramadol dose increased. Lidocaine patch. Morphine PRN 5. Combined systolic and diastolic heart failure- Restarted on torsemide by nephro. Entresto on hold. Cont Statin, ASA. 6. Chronic AF - on eliquis. Cont bb 7. DM - cont levemir SSI 8. Diarrhea - resolved. 9. CAD - cont asa/bb/statin. Entresto held given renal function DVT prophy:On eliquis Overall prognosis guarded. VS,Fishbone, I+O VS, Fishbone, I+O Laboratory Tests 04/28/18 04:56 Red Blood Count 3.91 L, Mean Corpuscular Volume 80.8, Mean Corpuscular Hemoglobin 23.5 L, Mean Corpuscular Hemoglobin Concent 29.1 L, Red Cell Distribution Width 17.8 H, Calcium Level 7.7 L Vital Signs Date Time Temp Pulse Resp B/P (MAP) Pulse Ox O2 Delivery O2 Flow Rate FiO2 04/28/18 13:00 18 04/28/18 12:30 2.0 04/28/18 12:11 150/80 04/28/18 12:00 98.6 78 96 Nasal Cannula I&O- Last 24 Hours up to 6 AM 04/28/18 06:00 Intake Total 580 ml Output Total 400 ml Balance 180 ml BISHOP LEVY MD Apr 28, 2018 14:49
[2018-04-28 16:00] VITALS: BP 160/70
[2018-04-28] MEDS: **NOTE PATIENT COMMENT** MISC XX SCH (21:00)
[2018-04-28] MEDS ORDERED: **NOTE PATIENT COMMENT** MISC XX SCH (21:00)
--- NOTE | 2018-04-28 22:20 | IPN ---
DATE: 04/28/2018 Mr. Dixon continues to complain of severe back pain. He felt something crush in his back today when he was trying to get up. He describes the pain mostly in the mid thoracic spine. He has had no fever or chills. Temperature is 98.2, pulse 91, respirations 17, blood pressure 160/70, oxygen saturation 96% on 2 liters nasal cannula. Heart: Normal S1, S2 with a systolic ejection murmur, 2/6, at the left upper sternal border. Lungs: Diminished breath sounds at the bases but clear. Abdomen is soft, nontender. Back: Mid thoracic tenderness around T5 and T10. Extremities: No edema. He has multiple excoriations with scratch guillermo and dry skin circumferential below the knee. Transesophageal echocardiogram done on April 19 showed no vegetation. Moderate aortic sclerosis. Mild mitral annular calcification. Severe reduction of systolic function with ejection fraction (EF) of 30% and the pacer leads present. IMPRESSION: 1. Enterococcus (E) faecalis bacteremia of unclear origin, on ampicillin and gentamicin. The patient afebrile but has persistent back pain. 2. Severe back pain with no evidence of infection on bone scan, thoracic spine, lumbar spine. There is only evidence of degenerative joint disease. Will continue with pain management for back pain. Continue current antibiotics with intravenous (IV) ampicillin and Rocephin for treatment of E. faecalis bacteremia. The patient will be treated with at least 2 weeks from negative cultures 3. Diarrhea the patient had four bowel movements yesterday and refusing his laxatives, and therefore will discontinue Senokot. LABORATORY DATA: Sodium 147, potassium 4.6, chloride 112, bicarbonate 28, BUN 35, creatinine 1.68, glucose 74, calcium 7.7, magnesium 1.8, CRP 5.12, which has increased from 3.7. White count of 7.9, hemoglobin 9.2, hematocrit 31.6, platelets 160. Plan continue ampicillin 2 grams IV every 6 hours - Rocephin 2 grams IV every 12 hours. MTDD
--- NOTE | 2018-04-28 22:25 | CR ---
DATE OF CONSULTATION: 04/28/2018 CONSULTING PHYSICIAN: Dr. Foley CHIEF COMPLAINT: Low back pain SUBJECTIVE: 72-year-old male patient with history of back pain. The patient described the pain as aching, constant with a pain score that ranged from 6 to 10/10. Pain increased with activities. He was hospitalized approximately two weeks ago with diarrhea and weakness. The patient has been evaluated by multiple services, presently on antibiotics IV. The main concern of the patient on regards of his pain is the low back pain. Presently, he is using tramadol on a as needed basis, Lidoderm patch and morphine through the IV route on a as needed basis. ALLERGIES: Include SULFA AND OXYCODONE . PAST MEDICAL HISTORY INCLUDES: 1. History of heart failure. 2. Atrial fibrillation. 3. Hypertension. 4. Diabetes. 5. Obesity. 6. Chronic kidney disease, stage III 7. Anemia. PAST SURGICAL HISTORY INCLUDES: 1. Coronary artery bypass. 2. Cardiac ablation. 3. Appendectomy. 4. Sigmoid colon resection. SOCIAL HISTORY: The patient denies the use of illegal substance or alcohol. OBJECTIVE: The patient is alert and oriented times three and cooperative. He is resting in the bed. He had some skin breaks. There is tenderness in the lower back and in the paraspinal muscle group. He has difficulties moving. I tried to help in sitting and the patient reports discomfort in the lower back area. CT of the lumbar spine done on April 18, 2018 is showing canal stenosis of multiple layers, facet arthropathy changes. A bone scan done on April 27, 2018 shows no evidence of infection in the spine. ASSESSMENT: Lumbar low back pain. Myalgia. PLAN: Today, tramadol was increased to every 6 hours prn for pain. I discussed with the nurse in charge and he feels that change has helped the patient, also the patient was started on a Lidoderm patch and the patient was able to move more. The patient is receiving morphine 2 mg every 3 hours as needed for pain. Due to the patient's kidney function, I will advise to reduce the morphine from every 3 hours to every 4 hours as needed for pain. Further recommendations will be done next week. I do not see at the moment place for interventional management. Depending on how he does during the weekend, further recommendations will be done. Thank you for the consult. [place]
[2018-04-28] MEDS: SODIUM CHLORIDE 0.9% INJ 10 ML SYR IV PRN (22:42)
[2018-04-29] VITALS (7 sets, daily range): BP systolic 140–160; BP diastolic 78–92
[2018-04-29] MEDS: AMPICILLIN SOD 2 GM in D5W MINI-BAG PLUS 100 ML IV SCH ×4 (01:14→17:33)
[2018-04-29] MEDS: SODIUM CHLORIDE 0.9% INJ 10 ML SYR IV PRN ×2 (02:07→21:49)
[2018-04-29 06:43] LABS: C REACTIVE PROTEIN QUANTITATIV 4.34 MG/DL (0.00-0.30); MAGNESIUM LEVEL 1.8 MG/DL (1.8-2.4)
[2018-04-29] MEDS: SLF 3 ML SYR IV SCH ×2 (06:46→13:48)
[2018-04-29] MEDS: SODIUM CHLORIDE 0.9% INJ 10 ML SYR IV SCH ×2 (06:47→18:20)
[2018-04-29] MEDS: HumaLOG INSULIN (NovoLOG) PER UNIT SC SCH ×4 (07:30→20:31)
[2018-04-29] MEDS ORDERED: MIRALAX *UNIT DOSE* 17GM PACKET PO PRN (08:00)
[2018-04-29] MEDS ORDERED: MIRALAX *UNIT DOSE* 17GM PACKET PO ONE (08:15)
[2018-04-29] MEDS: APIXABAN 2.5 MG TAB (ELIQUIS) PO SCH ×2 (08:38→20:55)
[2018-04-29] MEDS: MULTIVITAMINS/MINERALS THERAP 1 TAB PO SCH (08:38)
[2018-04-29] MEDS: LEVEMIR (INSULIN DETEMIR) 1 UNITS/0.01ML SC SCH ×2 (08:38→20:51)
[2018-04-29] MEDS: ASCORBIC ACID 500 MG TAB PO SCH (08:38)
[2018-04-29] MEDS: LIDOCAINE 5% (LIDODERM) PATCH TD SCH (08:38)
[2018-04-29] MEDS: ATORVASTATIN 20 MG TAB PO SCH (08:39)
[2018-04-29] MEDS: FEBUXOSTAT 40 MG TABLET (ULORIC) PO SCH (08:39)
[2018-04-29] MEDS: ASPIRIN 81 MG ENTERIC TAB PO SCH (08:39)
[2018-04-29] MEDS: PANTOPRAZOLE 40MG TAB (PROTONIX) PO SCH (08:39)
[2018-04-29] MEDS: CARVedilol 6.25 MG TAB PO SCH ×2 (08:39→20:55)
[2018-04-29] MEDS: FERROUS SULFATE 325MG TAB PO SCH ×2 (08:39→20:55)
[2018-04-29] MEDS: ISOSORBIDE DIN. (ISORDIL) 20 MG TAB PO SCH ×3 (08:40→17:33)
[2018-04-29] MEDS: AQUAPHOR **100GM** OINT TOP SCH (08:40)
[2018-04-29] MEDS: cefTRIAXone SOD 2 GM in D5W MINI-BAG PLUS 50 ML IV SCH ×2 (08:40→20:51)
[2018-04-29] MEDS: LIDOCAINE 5% OINT 30 GM TOP SCH (08:41)
[2018-04-29 09:05] LABS: HEMATOCRIT 31.4 % (42.0-52.0); HEMOGLOBIN 9.3 g/dl (13.5-17.5); MEAN CORPUSCULAR HEMOGLOBIN 23.7 pg (27.0-33.0); MEAN CORPUSCULAR HGB CONC 29.6 g/dl (32.0-36.5); MEAN CORPUSCULAR VOLUME 80.1 fl (80.0-96.0); PLATELET COUNT, AUTOMATED 154 10^3/uL (150-450); RED BLOOD COUNT 3.92 10^6/uL (4.30-6.10)
[2018-04-29 09:06] LABS: CALCIUM LEVEL 8.2 MG/DL (8.8-10.2); CREATININE FOR GFR 1.66 MG/DL (0.70-1.30); GLOMERULAR FILTRATION RATE 43.4 (>42); POTASSIUM SERUM 4.3 MEQ/L (3.5-5.1)
[2018-04-29] MEDS: traMADol 50 MG TAB PO PRN ×3 (09:11→16:04)
[2018-04-29 11:03] LABS: CPK CREATINE PHOSPHOKINASE 22 U/L (39-308); MB/CK RELATIVE INDEX 4.55 (< OR =4); TROPONIN I < 0.02 NG/ML (< 0.10)
--- NOTE | 2018-04-29 11:57 | IPN ---
DATE OF SERVICE: 04/28/2018 SUBJECTIVE: Connor is seen and examined this morning at the bedside. He complains he is very weak. He complains of back pain. He had trouble getting up even with physical therapy. His oral intake is still not that good. VITAL SIGNS: Temperature 98.2, pulse 91, respiratory rate 17, blood pressure 160/70, saturating 96% on 2 liters nasal cannula. Intake yesterday was 580. Urine output yesterday was 1000 mL. There were also two more incontinent voids. There were also four bowel movements. Weight on the bed scale today is not recorded. In general, the patient is seen lying in bed, fatigue looking but in no acute distress. Extraocular muscles are intact. Tongue is moist. Nasal cannula is in place. Jugular veins are not significantly elevated. Heart sounds are irregular. S1, S2. No murmur. Lung sounds are diminished at the bilateral bases. There is occasional rhonchus. Abdomen soft and nontender. Positive bowel sounds. Extremities: Today, I saw his lower extremities without the dressings. There is chronic venous stasis. The legs are dry, discolored. There is no pitting edema There is trace edema of the dependent area. Neurologic: He is oriented, interactive, conversational, and appropriate. LABS: White count 9.1, hemoglobin 9.6, platelet 168, sodium 145, potassium 5.1, bicarbonate 24, BUN 36, creatinine 1.5, CRP 3.6. INPATIENT MEDICATIONS: Reviewed by myself. I have started him on torsemide 20 mg by mouth twice a day. Remainder of medications are unchanged from prior. PROBLEMS: 1. Acute kidney injury (JENNFIER) on chronic kidney disease (CKD) stage 3, multifactorial and related to IV non-steroidal anti-inflammatory drug (NSAID) use, aminoglycoside, angiotensin receptor masood, dysautoregulation, bacteremia, colitis, use of diuretics. His renal function has now recovered to his baseline. He is off of IV fluids. I note he has bilateral pleural effusions. There is mild hypervolemia on physical exam. Now that renal function has improved towards baseline, I am putting him back on diuretics. We will start off with torsemide 20 mg by mouth twice a day and continue with monitoring of urine output and daily renal panel. His Hampton catheter has been removed and he denies any issues with voiding. 2. Systolic and diastolic congestive heart failure. Ejection fraction of 30% continue to hold ENTRESTO. He is requiring supplemental oxygen, there are pleural effusions, there is mild hypervolemia on exam. His diuretics were held for several days due to the acute kidney injury that has now recovered. I am resuming him on an oral diuretic regimen. If he has a picture of acute kidney injury (JENNIFER) again then he can be diuresed with combination loop diuretic and albumin infusion. His last two albumins have been 1.8 to 2.0 and he is likely to respond favorably to albumin if renal function worsens with the diuretics I am starting today. 3. Anemia with iron deficiency. Transferrin saturation of 13% and chronic kidney disease underlying. Anemia also likely related to sepsis and inflammatory state. Hemoglobin has improved with the packed red blood cell transfusion. I am holding off of IV iron given his recent bacteremia and ongoing antibiotics. 4. Hypertension. Blood pressures are uncontrolled and torsemide is being added. 5. Mild hyperkalemia. Potassium 5.1. We will see how he does with the loop diuretic and I am adding a 2 gram potassium restriction to his diet MTDD
--- NOTE | 2018-04-29 13:49 | IPNPDOC ---
Text Note Date of Service The patient was seen on 04/29/18. NOTE Subjective: Back pain better controlled. Agrees with getting out of bed today. Objective: Vitals: (see below) General: No acute distress, laying comfortably in bed. HEENT: Moist mucous membranes. Neck: No JVD or lymphadenopathy Cardiac: RRR, No murmurs Pulm: Diminished sounds at the bases b/l. No wheezing, rhonchi Abd: NT./ND + BS Ext: Trace edema bilateral lower extremities. No cyanosis. strength 5/5 BLE. Distal pulses intact. Labs (see below) Assessment/Plan 1. Acute on chronic renal insufficiency. Baseline CK D stage III. Likely secondary to gentamicin, entresto, bacteremia. Improving. Appreciate Nephro input. 2. Chronic anemia likely secondary to anemia of chronic kidney disease- discuss with Dr. Raymundo who recommends 1 unit PRBC. 3. Enterococcus faecalis bacteremia- ? Source of colitis versus chronic cholecystitis. Appreciate Dr. Vang. On Rocephin and and ampicillin per Dr Palumbo. LAUREANO negative for vegetation. Bone scan negative. 4. Chronic back pain- CT lumbar spine appreciated. Patient states symptoms are improving. CT Thoracic/lumbar spine. Ortho consulted. Pain management consulted. Tramadol dose increased. Lidocaine patch. Morphine PRN 5. Combined systolic and diastolic heart failure- Restarted on torsemide by nephro. Entresto on hold. Cont Statin, ASA. 6. Chronic AF - on eliquis. Cont bb 7. DM - cont levemir SSI 8. Diarrhea - resolved. 9. CAD - cont asa/bb/statin. Entresto held given renal function DVT prophy:On eliquis Overall prognosis guarded. VS,Fishbone, I+O VS, Fishbone, I+O Laboratory Tests 04/29/18 05:49 Calcium Level 8.2 L 04/29/18 08:54 Red Blood Count 3.92 L, Mean Corpuscular Volume 80.1, Mean Corpuscular Hemoglobin 23.7 L, Mean Corpuscular Hemoglobin Concent 29.6 L, Red Cell Distribution Width 17.5 H Vital Signs Date Time Temp Pulse Resp B/P (MAP) Pulse Ox O2 Delivery O2 Flow Rate FiO2 04/29/18 12:36 150/80 04/29/18 12:15 2.0 04/29/18 12:00 98.1 87 18 97 Nasal Cannula I&O- Last 24 Hours up to 6 AM 04/29/18 05:59 Intake Total 750 ml Output Total 0 ml Balance 750 ml BISHOP LEVY MD Apr 29, 2018 13:49
[2018-04-29 16:40] LABS: MB/CK RELATIVE INDEX 6.88 (< OR =4); TROPONIN I 0.03 NG/ML (< 0.10)
[2018-04-29] MEDS: ACETAMINOPHEN TAB 650MG DOSE (2X325MG) PO PRN (20:56)
[2018-04-29] MEDS: **NOTE PATIENT COMMENT** MISC XX SCH (21:00)
[2018-04-29 22:40] LABS: CK-MB VALUE MASS < 1.0 NG/ML (<3.6); CPK CREATINE PHOSPHOKINASE 16 U/L (39-308); MB/CK RELATIVE INDEX 6.25 (< OR =4); TROPONIN I 0.02 NG/ML (< 0.10)
[2018-04-30] VITALS: BP 149/86
[2018-04-30] MEDS: AMPICILLIN SOD 2 GM in D5W MINI-BAG PLUS 100 ML IV SCH ×4 (00:20→17:09)
[2018-04-30] MEDS: SODIUM CHLORIDE 0.9% INJ 10 ML SYR IV PRN ×3 (01:15→23:20)
[2018-04-30] MEDS: ACETAMINOPHEN TAB 650MG DOSE (2X325MG) PO PRN ×2 (02:30→21:26)
[2018-04-30 04:00] VITALS: BP 140/88
[2018-04-30 05:51] LABS: HEMATOCRIT 30.8 % (42.0-52.0); HEMOGLOBIN 9.2 g/dl (13.5-17.5); MEAN CORPUSCULAR HEMOGLOBIN 24.1 pg (27.0-33.0); MEAN CORPUSCULAR HGB CONC 29.9 g/dl (32.0-36.5); MEAN CORPUSCULAR VOLUME 80.8 fl (80.0-96.0); PLATELET COUNT, AUTOMATED 161 10^3/uL (150-450); RED BLOOD COUNT 3.81 10^6/uL (4.30-6.10); WHITE BLOOD COUNT 9.1 10^3/uL (4.0-10.0)
[2018-04-30 06:19] LABS: C REACTIVE PROTEIN QUANTITATIV 3.15 MG/DL (0.00-0.30); CALCIUM LEVEL 8.4 MG/DL (8.8-10.2); CREATININE FOR GFR 1.55 MG/DL (0.70-1.30); MAGNESIUM LEVEL 1.9 MG/DL (1.8-2.4); POTASSIUM SERUM 3.9 MEQ/L (3.5-5.1)
[2018-04-30] MEDS: SODIUM CHLORIDE 0.9% INJ 10 ML SYR IV SCH ×2 (06:29→22:54)
--- NOTE | 2018-04-30 07:29 | ECGEPIP ---
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
[2018-04-30] MEDS: HumaLOG INSULIN (NovoLOG) PER UNIT SC SCH ×4 (07:30→21:00)
[2018-04-30 08:00] VITALS: BP 140/70
[2018-04-30] MEDS: LEVEMIR (INSULIN DETEMIR) 1 UNITS/0.01ML SC SCH ×2 (09:00→21:00)
[2018-04-30] MEDS: IPRATROPIUM 0.5MG/ALBUTEROL 2.5MG INH SOL UD 3ML (DUONEB)(J7620) NEB SCH ×4 (09:13→21:07)
[2018-04-30] MEDS ORDERED: ALBUTEROL SULFATE 2.5 MG/0.5 ML INH NEB SOLN INH PRN (09:15)
[2018-04-30] MEDS: PANTOPRAZOLE 40MG TAB (PROTONIX) PO SCH (09:19)
[2018-04-30] MEDS: cefTRIAXone SOD 2 GM in D5W MINI-BAG PLUS 50 ML IV SCH ×2 (09:19→21:24)
[2018-04-30] MEDS: MULTIVITAMINS/MINERALS THERAP 1 TAB PO SCH (09:19)
[2018-04-30] MEDS: FERROUS SULFATE 325MG TAB PO SCH ×2 (09:20→21:26)
[2018-04-30] MEDS: CARVedilol 6.25 MG TAB PO SCH ×2 (09:20→21:25)
[2018-04-30] MEDS: ATORVASTATIN 20 MG TAB PO SCH (09:20)
[2018-04-30] MEDS: ASPIRIN 81 MG ENTERIC TAB PO SCH (09:20)
[2018-04-30] MEDS: APIXABAN 2.5 MG TAB (ELIQUIS) PO SCH ×2 (09:20→21:25)
[2018-04-30] MEDS: ISOSORBIDE DIN. (ISORDIL) 20 MG TAB PO SCH ×3 (09:21→17:10)
[2018-04-30] MEDS: FEBUXOSTAT 40 MG TABLET (ULORIC) PO SCH (09:21)
[2018-04-30] MEDS: traMADol 50 MG TAB PO PRN ×2 (09:22→17:10)
[2018-04-30] MEDS: LIDOCAINE 5% (LIDODERM) PATCH TD SCH (09:23)
[2018-04-30] MEDS: AQUAPHOR **100GM** OINT TOP SCH (09:24)
[2018-04-30] MEDS: LIDOCAINE 5% OINT 30 GM TOP SCH (09:24)
--- NOTE | 2018-04-30 10:07 | REP ---
Portable chest, 09:37 a.m., single AP view, the patient sitting: Comparison is the portable chest 04/19/2018. There is marked cardiomegaly, unchanged. There are sternotomy wires, mediastinal surgical clips and a dual chamber pacemaker, all unchanged. There is increased density inferiorly in the right lung as an interval change, nonspecific, infiltrate versus effusion versus combination. Impression: New infiltrate/effusion/combination inferiorly in the right lung. Cardiomegaly, unchanged. Pacemaker, unchanged. Electronically Signed by Deion Tan MD 04/30/2018 09:57 A
[2018-04-30 10:28] LABS: ABG BASE EXCESS -0.5 (-2.0-2.0); ABG HCO3 22.4 MEQ/L (22.0-26.0); ABG O2 SATURATION 98.6 % (95.0-99.0); ABG PARTIAL PRESSURE CO2 30.9 mmHg (35.0-45.0); ABG PARTIAL PRESSURE O2 114.9 mmHg (75.0-100.0); ABG STANDARD HCO3 24.1 MEQ/L (22.0-26.0); ABG TOTAL CO2 23.4 MEQ/L (23.0-31.0); ABG pH (ARTERIAL) 7.479 UNITS (7.350-7.450)
[2018-04-30 12:00] VITALS: BP 130/80
--- NOTE | 2018-04-30 12:07 | IPNPDOC ---
Text Note Date of Service The patient was seen on 04/30/18. NOTE Subjective: Pt with SOB this am. No Cough. No Palpitations. No CP. Appetite d ecreased Objective: Vitals: (see below) General: No acute distress, laying comfortably in bed. HEENT: Moist mucous membranes. Neck: No JVD or lymphadenopathy Cardiac: RRR, No murmurs Pulm: Diminished sounds and crackles at the bases b/l. No wheezing, rhonchi Abd: NT./ND + BS Ext: Trace to 1+ edema bilateral lower extremities. No cyanosis. strength 5/5 BLE. Distal pulses intact. Labs (see below) Assessment/Plan 1. Acute on chronic renal insufficiency. Baseline CK D stage III. Likely second lukasz to gentamicin, entresto, bacteremia. Improving. Appreciate Nephro input. 2. Chronic anemia likely secondary to anemia of chronic kidney disease- discuss with Dr. Raymundo who recommends 1 unit PRBC. 3. Enterococcus faecalis bacteremia- ? Source of colitis versus chronic cholecystitis. Appreciate Dr. Vang. On Rocephin and and ampicillin per Dr Palumbo. LAUREANO negative for vegetation. Bone scan negative. 4. Chronic back pain- CT lumbar spine appreciated. Patient states symptoms are improving. CT Thoracic/lumbar spine. Ortho consulted. Pain management consulted. Tramadol dose increased. Lidocaine patch. Morphine PRN 5. Combined systolic and diastolic heart failure- Lasix IV, then restart tors emide tomorrow. Entresto on hold. Cont Statin, ASA. Dr. Andrew consulted. 6. Chronic AF - on eliquis. Cont bb 7. DM - cont levemir SSI 8. Diarrhea - resolved. 9. CAD - cont asa/bb/statin. Entresto held given renal function 10. ? Infiltrate on CXR - CT pending. DVT prophy:On eliquis Overall prognosis guarded. VS,Fishbone, I+O VS, Fishbone, I+O Laboratory Tests 04/30/18 05:39 Red Blood Count 3.81 L, Mean Corpuscular Volume 80.8, Mean Corpuscular Hemoglobin 24.1 L, Mean Corpuscular Hemoglobin Concent 29.9 L, Red Cell Distribution Width 17.5 H, Calcium Level 8.4 L Vital Signs Date Time Temp Pulse Resp B/P (MAP) Pulse Ox O2 Delivery O2 Flow Rate FiO2 12/2/18 10:02 20 Nasal Cannula 2.0 04/30/18 09:20 86 142/70 04/30/18 08:00 97.9 96 I&O- Last 24 Hours up to 6 AM 04/30/18 06:00 Intake Total 910 ml Output Total 0 ml Balance 910 ml BISHOP LEYV MD Apr 30, 2018 12:07
--- NOTE | 2018-04-30 12:13 | REP ---
CT of the chest without IV contrast: The studies to evaluate increased density inferiorly in the right lung on the portable chest earlier today. There is a moderate right pleural effusion. There is compression atelectasis of the adjacent right lung. There is a small left pleural effusion with compression atelectasis of the adjacent left lung. These pleural effusions are unchanged in size from a CT of the abdomen dated 04/23/2018. There are no comparison chest CT studies. There are is an 18 mm nodule posteriorly in the upper lobe. No other lung masses or nodules are identified. The unenhanced thoracic aorta is unremarkable except for occasional calcified atheroma. Cardiac size is enlarged. There is no pericardial effusion. There are sternotomy wires and pacemaker.. Impression: There is a moderate pleural effusion on the right and a small pleural effusion on the left with compression atelectasis of the adjacent lung bilaterally. The pleural effusions are unchanged from the abdomen CT of 04/23/2018. Cardiomegaly and pacemaker. 18 mm right upper lobe lung nodule. Electronically Signed by Deion Tan MD 04/30/2018 12:04 P
[2018-04-30] MEDS ORDERED: FUROSEMIDE 40 MG/4 ML VIAL (J1940) IV ONE (12:15)
--- NOTE | 2018-04-30 12:27 | IPN ---
DATE OF SERVICE: 04/29/2018 SUBJECTIVE: Patient was seen and examined at the bedside today, morning. He just took his pain medication as he was sleeping. Otherwise, no apparent distress. Renal function is stable. Creatinine has been fluctuating at around 1.5, which is close to his baseline. Urine output is not recorded well. He does not have a Hampton catheter at this point. OBJECTIVE: Vital signs: Temperature is 98.1 degrees Fahrenheit, blood pressure 150/92, pulse is 87, respiratory rate of 18, saturating 97% on nasal cannula at 2 liters. Intake and Output: Urine output is not being recorded. He is having incontinent voids. Weight on the bed scale is 91.5 kg. PHYSICAL EXAMINATION: General: Patient is sleepy, laying in bed. Head and Neck Exam: Eyes are closed. Neck is supple. There is no jugular venous distention (JVD). There is lipoma behind the neck. Cardiovascular: S1, S2. Regular rate. No murmur, rub, and gallop. Mild elevation of JVD. No edema of the bilateral lower extremities. Respiratory: Chest is clear to auscultation bilaterally. No active rales or rhonchi. Abdomen is soft. Positive bowel sounds. Nontender. No organomegaly. Genitourinary: Patient does not have any Hampton catheter at this point. Musculoskeletal: No clubbing or cyanosis. Pulses are 2+. Central Nervous System (BARGE ENGINEER): Patient is sleeping at this point so I did not disturb him. LAB REVIEW: CBC showed a WBC of 8, hemoglobin is 9.3, platelets are 154. BMP showed sodium 143, potassium 4.3, chloride 109, bicarbonate 26, BUN 34, creatinine is 1.66, calcium 8.2, magnesium is 1.3. CURRENT INPATIENT MEDICATIONS: The patient's medications were all reviewed by me. He continues to be on IV ampicillin and ceftriaxone. Vitamin C was stopped today. No other change in the medications today as compared with yesterday. ASSESSMENT AND PLAN: 1. Acute kidney injury superimposed on chronic kidney disease, stage III. It was multifactorial secondary to use of nonsteroidal anti-inflammatory drugs (NSAIDs), aminoglycoside, angiotensin receptor blockers, along with colitis and bacteremia. Renal function is improving. Creatinine is 1.6, which is close to his baseline. Diuretics was stopped because patient has very poor oral intake. 2. Chronic combined systolic and diastolic congestive heart failure. Patient has an ejection fraction (EF) of around 30%. ENTRESTO is on hold because of acute renal failure. Diuretics are also on hold. Volume status is optimized. He was briefly given diuretics. but because of poor oral intake and high sodium level, it was stopped again. 3. Iron deficiency anemia. Patient is status post 1 unit of packed red blood cells (PRBC) transfusion. Hemoglobin is 9.3, which is optimal at this point. No need of erythropoietin stimulating agent (CARMENZA). 4. Hypertension. Blood pressure is optimized at this point. Continue current dose of Coreg 6.25 mg by mouth twice a day, isosorbide 20 mg by mouth three times a day. 5. Enterococcus faecalis bacteremia. Patient is currently on Rocephin and ampicillin. Rest of the management is as per surgical team and infectious disease. 6. Chronic atrial fibrillation. Continue Eliquis and beta-masood. Heart rate is controlled at this point.
[2018-04-30] MEDS: DOBUTamine HCL 500,000 MCG in APPROPRIATE DILUENT 1 EA IV SCH (13:56)
[2018-04-30 16:00] VITALS: BP 130/70
[2018-04-30] MEDS: TORSEMIDE 20 MG TAB PO SCH (17:10)
[2018-04-30 20:00] VITALS: BP 140/82
--- NOTE | 2018-04-30 20:28 | CR ---
DATE OF CONSULTATION: 04/30/2018 CARDIOLOGY CONSULTATION REFERRING PHYSICIAN: Dr. Panda Foley PRIMARY CARE PROVIDER: Morgan Best MD ASSET SPECIALIST: Dr. Raymundo CHIEF COMPLAINT: Shortness of breath with long-standing congestive heart failure. 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 On February 22, 2018 he was admitted to hospital with acute cholecystitis complicated by heart failure. He appeared to respond to parenteral antibiotics and percutaneous drainage of his gallbladder, along with IV dobutamine infusion and diuretic therapy. At the time of his discharge, he has doing quite well, weaned off dobutamine and onto Entresto and continued on carvedilol and spirolactone with torsemide 20 mg twice a day. There was consideration of further addressing his gallbladder once his condition had stabilized. However, he began having diarrhea as of April 06, 2018, suspected to be related to his gallbladder disease, and was started on cholestyramine. His diuretic therapy had been decreased and thus his weight had increased. Unfortunately, his diarrhea had persisted with worsening weakness and he presented to the emergency room at April 14 and admitted to the hospitalist medical service. Precise origin of his diarrhea was uncertain, but a subsequent CT scan of the abdomen showed an area of colitis. There was no clinical or radiographic signs of cholecystitis at this time. Blood cultures were positive times four for Enterococcus faecalis. He has been followed by infectious disease and remains on combination parenteral antibiotic therapy with good effect. With his relative volume depletion, he did develop acute on chronic renal insufficiency and nephrology has been following closely. His Entresto and diuretics have been placed on hold and he was given cautious IV fluid replacement with good effect. His admission weight was 91 kg and his current weight is 90 kg. Admission BUN was 58, actually increasing to a maximum of 85 on April 22, now down to 32 with creatinine 1.78 on admission, reaching a maximum of 3.45 on April 23 and now down to 1.55 today. Earlier today had been complaining of shortness of breath. Arterial blood gas on supplemental oxygen showed a pH of 7.48, pCO2 of 31, pO2 of 114. Chest x-ray was reported as showing stable marked cardiomegaly with increased density in the right lung base, infiltrate versus effusion. Chest CT scan reportedly shows moderate right pleural effusion with some compressive atelectasis and a small left pleural effusion. Comment was made that these did not appear significantly changed from CT scan April 23, 2018 and note was also made of an 18 mm right upper lobe nodule. At this time, he denies any chest discomfort, shortness of breath or awareness of his heart action. Continues to have anorexia and activity at this point is chiefly limited by back pain with CT scan on April 26, 2018 showing degenerative disk disease with bulging disks between the 11th and 12th thoracic spine and 1st lumbar spine. There was also involvement of the disk between L1 and L2 with minimal compression, L2 and L3, as well as L3-L4, L4-L5, L5 and S1. Curiously, these were compared with April 17, 2018 and apparently were not changed. He was seen by orthopedic surgery. Fortunately, findings were not consistent with acute bacterial diskitis. Pain management consultation was placed. PRIOR CARDIAC DISEASE/EVENTS/ TESTS: Has had a very complicated history detailed on my prior admission history and physical on February 22, 2018, including multiple coronary interventions, including bypass surgery on two separate occasions, atrial flutter ablation, single chamber pacemaker implant 2003, pacemaker upgraded to a single chamber ICD 2006 for primary prevention and congestive heart failure. Last cardiac catheterization June 2012 showed multivessel obstructive disease with patent HAYES and CARINA, but occluded saphenous vein graft to OM. Echocardiogram June 2017 showed a moderately dilated and hypertrophied left ventricle with moderate global hypokinesis, left ventricular ejection fraction 35%, prominently dilated left atrium and right heart chambers with severe pulmonary hypertension (PAST 60 - 78 mmHg closed pair), dilated inferior vena cava, aortic valvular sclerosis with only mildly insufficiency, mild mitral annular calcification with moderate insufficiency, and moderately severe tricuspid insufficiency. CORONARY RISK FACTORS: Male gender. Obesity. Hypercholesterolemia. Hypertension. Brief remote smoking history. Insulin-dependent diabetes mellitus. No family history of premature coronary disease. OTHER PAST MEDICAL/SURGICAL HISTORY: Appendectomy 1956, laser surgery for cataracts February 2014. 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 REVIEW OF SYSTEMS: Detailed as above and not changed from January. CURRENT MEDICATIONS: - carvedilol 6.25 mg twice a day - isosorbide dinitrate 20 mg three times a day - atorvastatin 40 mg daily - Eliquis 2.5 mg twice a day - multivitamin - torsemide 20 mg by mouth twice a day - DuoNeb every 4 hours - Protonix 40 mg daily - ceftriaxone 2 grams every 12 hours - ampicillin 2 grams IV every 6 hours - calcium carbonate 1 gram every 4 hours as needed - ferrous sulfate 325 mg by mouth twice a day - Levemir insulin twice a day - Humalog insulin according to sliding scale - aspirin 81 mg daily - Uloric 80 mg daily - calcitriol 0.25 mg Tuesday, Tuesday and Tuesday - nitroglycerin 0.4 mg sublingual every 5 minutes as needed - Tylenol, tramadol and morphine for back pain as needed - MiraLax 1 packet daily as needed for constipation ALLERGIES: OXYCODONE and SULFA ANTIBIOTICS. PHYSICAL EXAMINATION: CONSTITUTIONAL: Slightly barrel-chested, elderly, male appearing quite lethargic and slow to respond to questioning. Lying with the head of bed elevated 30 degrees. Currently a medium body build but prior history of obesity. VITAL SIGNS: Heart rate 96 beats per minute and irregular, blood pressure 120/76 supine, respiratory rate 18 per minute, oxygen saturation 99% on supplemental oxygen by nasal prongs at 2 liters. Currently afebrile. Weight 199 pounds, height 71 inches, Body Mass Index (BMI) 27.3. EYES: Slight conjunctival pallor. No injection or petechiae. No icterus. No xanthelasma. ENT/MOUTH: Normal oral moisture. Multiple missing teeth. NECK: Trachea midline. Thyroid not enlarged. Neck veins continue to be approximately 8 cm above the sternal angle (down from 14 on his last admission). RESPIRATORY: Increased anteroposterior chest diameter with reduced chest excursion. Well-healed sternotomy and left subclavian ICD incision. Slight dullness posteriorly with reduced air entry. Upper lobes appear to be clear with no current expiratory wheeze. CARDIOVASCULAR: Apical impulse not palpable. Heart sounds distant with no audible gallop. Has a systolic ejection murmur that varies with his heart rhythm heard maximally in the right upper sternal border radiating to the right side of his neck. No diastolic murmur. Normal carotid upstrokes with variable volume due to his arrhythmia. Transmitted bruit from the precordium. Abdominal aorta, femoral and pedal pulses difficult to palpate because of his weight problem and peripheral vascular disease. His feet and lower limbs do not appear to be edematous, however, his thighs and sacrum are edematous. Currently wearing dressings on his left lower leg. EXTREMITIES: No clubbing peripheral cyanosis or splinter hemorrhages. GASTROINTESTINAL: Slightly overweight but soft without localized tenderness. Healed median umbilical and laparoscopic ports. Liver span interestingly was only 8 cm. Rectal examination not indicated. MUSCULOSKELETAL: Very reluctant to move because of his back problems. No obvious joint deformities. Proximal muscle weakness but normal tone. SKIN: Ecchymotic lesions related to phlebotomy sites. Currently has a peripherally inserted central catheter (PICC) line in his right brachial vein. Chronic skin changes in both lower legs because of chronic ischemia and swelling. NEURO/PSYCH: Lethargic somewhat withdrawn, flat affect but eyes, facial, extremity movements were symmetrical. INVESTIGATIONS: Portable upright chest x-rays and CT scans of his chest and abdomen were reviewed and again shows prominently dilated heart with evidence of pulmonary hypertension and chronic right moderate sized pleural effusion. Small left pleural effusion. Electrocardiogram (EKG) on April 14, 2018 with repeat April 29, 2018 showed underlying atrial fibrillation with fair controlled ventricular response averaging 98 beats per minute. Marked left axis with incomplete left bundle branch block pattern. Prominent voltage with slow precordial R-wave progression and lateral repolarization abnormalities due to left ventricle hypertrophy. These did not appear significantly changed from our office tracings. Transesophageal echocardiographic report: Study done April 19 to rule out bacterial endocarditis with his bacteremia showed no signs of vegetations. Moderate aortic valvular sclerosis with mild aortic insufficiency. Mild degenerative change of the mitral valve with very mild insufficiency. No intracardiac mass. Blood work: Hemoglobin today is 9.2 and somewhat down since his admission. White blood cell count was normal. Platelet count was normal. Arterial blood gas April 30, 2018 as mentioned above. Chemistry today shows electrolyte balance with potassium 3.9, BUN 32, creatinine 1.55, fasting glucose of 74. Serum calcium 8.4, magnesium 1.9. Last albumin 2.0 April 26. Recent serial troponin I levels were all negative on his combination antibiotic therapy. His C-reactive protein has remained slightly elevated 3.15, much improved from his last admission on April 19 when it was measuring 25.5 and 8.9, respectively. Last ultrasensitive TSH on April 14 was normal 1.4. Urinalysis April 22 showed 2+ proteinuria, microscopic hematuria and pyuria. Leukocyte esterase negative. Negative for glucose. IMPRESSION/PLAN: 1. Shortness of breath: Likely related to multiple factors, including a degree of atelectasis with his inactivity, bilateral pleural effusions, hyperreactive airway disease and element of acute congestion off diuretic therapy having received IV fluid replacement. 2. Heart failure (systolic and diastolic dysfunction / acute on chronic): Has symptoms and signs of biventricular congestion, though considerably less than his last admission. With his current soft blood pressure and renal insufficiency, prior to resuming his Entresto, I have elected to start him back on low-dose dobutamine IV infusion at 2.5 mcg/kg per minute. Nephrology has resumed his torsemide 20 mg twice a day. It is of crucial importance to hopefully get him out of bed and with the assistance of physical therapy hopefully this could be achieved. It has as always been a challenge to ambulate in hospital. 3. Chronic atrial fibrillation: Ventricular response currently controlled on low-dose carvedilol. Should his heart rate increase with low-dose dobutamine, our plan will be to increase his carvedilol dosage. He remains on oral anticoagulation without adverse effect. 4. Coronary artery disease ([place] vessel)/post coronary artery bypass graft (CABG)/ post multiple PTCAs: Gratifyingly, despite his medical problems, he has been free of symptom or sign of myocardial ischemia. Serial EKGs do not show significant repolarization changes and Troponin I has been negative. Remains on combination protective carvedilol, isosorbide mononitrate, low-dose aspirin, and atorvastatin. 5. Hypertensive heart disease (benign with heart failure): Current blood pressure is soft, suspected to be related to his general medical illness. As mentioned, I am somewhat reluctant to reintroduce Entresto in light of his soft blood pressure on carvedilol and isosorbide dinitrate alone. His chemistry will be monitored closely, along with his blood pressure and fluid balance now that his torsemide is being resumed. If these are stable, we will plan on cautiously restarting his Entresto. 6. Mitral and aortic valve disorder (nonrheumatic): Auscultatory findings unchanged from the past. Fortunately, despite his bacteremia and positive blood cultures, no evidence of endocarditis on his transesophageal echocardiogram. Remains on combination parenteral antibiotic therapy because of his colitis and severe diarrhea. I will plan on following him closely with you and appreciate the opportunity to participate in his care. Thank you, Shiv Andrew MD [facility]
[2018-04-30] MEDS: **NOTE PATIENT COMMENT** MISC XX SCH (21:00)
[2018-04-30] MEDS ORDERED: ISOSORBIDE DIN. (ISORDIL) 20 MG TAB PO ONE (22:15)
[2018-04-30] MEDS ORDERED: TORSEMIDE 20 MG TAB PO ONE (22:15)
[2018-05-01] VITALS: BP 125/63
[2018-05-01] MEDS: IPRATROPIUM 0.5MG/ALBUTEROL 2.5MG INH SOL UD 3ML (DUONEB)(J7620) NEB SCH ×7 (00:39→23:45)
[2018-05-01] MEDS: AMPICILLIN SOD 2 GM in D5W MINI-BAG PLUS 100 ML IV SCH ×4 (00:57→18:44)
[2018-05-01] MEDS: SODIUM CHLORIDE 0.9% INJ 10 ML SYR IV PRN (01:52)
[2018-05-01 04:00] VITALS: BP 160/92
[2018-05-01] MEDS: ACETAMINOPHEN TAB 650MG DOSE (2X325MG) PO PRN (04:25)
[2018-05-01 06:02] LABS: HEMATOCRIT 30.2 % (42.0-52.0); MEAN CORPUSCULAR HEMOGLOBIN 24.1 pg (27.0-33.0); MEAN CORPUSCULAR HGB CONC 29.8 g/dl (32.0-36.5); MEAN CORPUSCULAR VOLUME 80.7 fl (80.0-96.0); PLATELET COUNT, AUTOMATED 148 10^3/uL (150-450); RED BLOOD COUNT 3.74 10^6/uL (4.30-6.10); WHITE BLOOD COUNT 8.2 10^3/uL (4.0-10.0)
[2018-05-01 06:10] LABS: CALCIUM LEVEL 8.2 MG/DL (8.8-10.2); CREATININE FOR GFR 1.53 MG/DL (0.70-1.30); GLOMERULAR FILTRATION RATE 47.7 (>42)
[2018-05-01] MEDS: SODIUM CHLORIDE 0.9% INJ 10 ML SYR IV SCH ×2 (06:47→19:10)
[2018-05-01 08:00] VITALS: BP 162/80
[2018-05-01] MEDS: ISOSORBIDE DIN. (ISORDIL) 20 MG TAB PO SCH ×3 (08:00→18:45)
[2018-05-01] MEDS: cefTRIAXone SOD 2 GM in D5W MINI-BAG PLUS 50 ML IV SCH ×2 (09:12→21:10)
[2018-05-01] MEDS: LEVEMIR (INSULIN DETEMIR) 1 UNITS/0.01ML SC SCH ×2 (09:13→21:00)
[2018-05-01] MEDS: HumaLOG INSULIN (NovoLOG) PER UNIT SC SCH ×4 (09:13→21:00)
[2018-05-01] MEDS: LIDOCAINE 5% (LIDODERM) PATCH TD SCH (09:16)
[2018-05-01] MEDS: AQUAPHOR **100GM** OINT TOP SCH (09:17)
[2018-05-01] MEDS: LIDOCAINE 5% OINT 30 GM TOP SCH (09:17)
[2018-05-01] MEDS: ONDANSETRON 4MG/2ML VIAL (J2405) IV PRN (09:53)
--- NOTE | 2018-05-01 11:21 | IPNPDOC ---
Text Note Date of Service The patient was seen on 05/01/18. NOTE Subjective: Had nausea this am. No Abd pain/Vomiting. No Cough. No Palpitations. No CP. Objective: Vitals: (see below) General: No acute distress, laying comfortably in bed. HEENT: Moist mucous membranes. Neck: No JVD or lymphadenopathy Cardiac: RRR, No murmurs Pulm: Diminished sounds and crackles at the bases b/l. No wheezing, rhonchi Abd: NT./ND + BS Ext: Trace to 1+ edema bilateral lower extremities. No cyanosis. strength 5/5 BLE. Distal pulses intact. Labs (see below) Assessment/Plan 1. Acute on chronic renal insufficiency. Baseline CK D stage III. Likely sec ondary to gentamicin, entresto, bacteremia. Improving. Appreciate Nephro input. 2. Acute on chronic systolic and diastolic heart failure- Torsemide restarted. Entresto on hold. Cont Statin, ASA. Dr. Andrew consulted. Dobutamine drip started by . 3. Enterococcus faecalis bacteremia- ? Source of colitis versus chronic cholecystitis. Appreciate Dr. Vang. On Rocephin and and ampicillin per Dr Palumbo. LAUREANO negative for vegetation. Bone scan negative. 4. Chronic back pain- CT lumbar spine appreciated. Patient states symptoms are improving. CT Thoracic/lumbar spine. Ortho consulted. Pain management consulted. Tramadol dose increased. Lidocaine patch. Morphine PRN 5. Chronic anemia likely secondary to anemia of chronic kidney disease- discuss with Dr. Raymundo who recommends 1 unit PRBC. 6. Chronic AF - on eliquis. Cont bb 7. DM - cont levemir SSI 8. Diarrhea - resolved. 9. CAD - cont asa/bb/statin. Entresto held given renal function 10. ? Infiltrate on CXR - CT negative for infiltrate. DVT prophy: On eliquis Overall prognosis guarded. VS,Fishbone, I+O VS, Fishbone, I+O Laboratory Tests 05/01/18 05:34 Red Blood Count 3.74 L, Mean Corpuscular Volume 80.7, Mean Corpuscular Hemoglobin 24.1 L, Mean Corpuscular Hemoglobin Concent 29.8 L, Red Cell Distribution Width 17.5 H, Calcium Level 8.2 L Vital Signs Date Time Temp Pulse Resp B/P (MAP) Pulse Ox O2 Delivery O2 Flow Rate FiO2 05/01/18 08:00 98.1 63 20 162/80 (107) 97 Nasal Cannula 2.0 I&O- Last 24 Hours up to 6 AM 05/01/18 06:00 Intake Total 60 ml Output Total 0 ml Balance 60 ml BISHOP LEVY MD May 01, 2018 11:21
[2018-05-01 12:00] VITALS: BP 129/80
[2018-05-01] MEDS: TORSEMIDE 20 MG TAB PO SCH ×2 (12:00→18:44)
[2018-05-01] MEDS: SUCRALFATE SUSP 1GM/10ML UD PO SCH ×3 (12:11→21:07)
[2018-05-01] MEDS: traMADol 50 MG TAB PO PRN (13:55)
[2018-05-01] MEDS: APIXABAN 2.5 MG TAB (ELIQUIS) PO SCH ×2 (14:00→21:06)
[2018-05-01] MEDS: ENTRESTO 24-26MG TABLET (SACUBITRIL/VALSARTAN) PO SCH ×2 (14:00→21:09)
[2018-05-01] MEDS: MULTIVITAMINS/MINERALS THERAP 1 TAB PO SCH (14:00)
[2018-05-01] MEDS: CARVedilol 6.25 MG TAB PO SCH ×2 (14:00→21:08)
[2018-05-01] MEDS: ASPIRIN 81 MG ENTERIC TAB PO SCH (14:00)
[2018-05-01] MEDS: FERROUS SULFATE 325MG TAB PO SCH ×2 (14:00→21:09)
[2018-05-01] MEDS ORDERED: traMADol 50 MG TAB PO SCH (14:00)
[2018-05-01] MEDS: ATORVASTATIN 20 MG TAB PO SCH (14:01)
[2018-05-01] MEDS: FEBUXOSTAT 40 MG TABLET (ULORIC) PO SCH (14:01)
[2018-05-01] MEDS: CALCITRIOL 0.25 MCG CAP (S0169) PO SCH (14:02)
[2018-05-01] MEDS: PANTOPRAZOLE 40MG TAB (PROTONIX) PO SCH (14:02)
[2018-05-01 16:00] VITALS: BP 119/76
--- NOTE | 2018-05-01 16:57 | IPN ---
DATE: 04/30/2018 SUBJECTIVE: The patient was seen and examined at the bedside today morning. The patient is more awake and alert today as compared with yesterday. He was getting ready to go for a CAT scan when I saw him. His renal function is stable. Creatinine is down to 1.5 today. OBJECTIVE: VITAL SIGNS: Temperature is 98.7 degrees Fahrenheit, blood pressure 130/80, pulse is 95, respiratory rate of 20, saturating 99% on nasal cannula at three liters. INTAKE AND OUTPUT: Urine output is not recorded. The patient has incontinent voids. However, on the bladder scans, there was no urinary retention. Weight in the bed scale is 90.4 kg. PHYSICAL EXAMINATION: GENERAL: The patient awake, alert and oriented times two, laying in bed, in no apparent distress. HEAD AND NECK: Extraocular muscles intact. Pupils equally round and reactive to light. Mucous membranes are moist. Mild elevation of jugular venous distention (JVD). CARDIOVASCULAR: S1, S2, regular rate. Trace edema of the bilateral lower extremities. RESPIRATORY: Decreased breath sounds at the bases, especially on the right side. ABDOMEN: Soft. Positive bowel sounds. Nontender. No organomegaly. GENITOURINARY: Bladder is not palpable. No hernias were noted. MUSCULOSKELETAL: No clubbing or cyanosis. Pulses are 2+. CENTRAL NERVOUS SYSTEM (COURT MONITOR): The patient is following commands and moves extremities. LABORATORY REVIEW: CBC showed a WBC of 9.1, hemoglobin 9.2, platelets are 161. ABG done today showed pH of 7.47, pCO2 of 30, pO2 of 114, bicarbonate is 22, oxygen saturation is 98.6%. BMP today showed sodium 143, potassium 3.9, chloride 109, bicarbonate 27, BUN 32, creatinine is 1.55, it was 1.6 yesterday, calcium is 8.4, C-reactive protein is 3.1. IMAGING: A CAT scan of the chest was done today which showed moderate pleural effusion on the right side and small pleural effusion on the left, compression atelectasis at the adjacent lung bilaterally, and these findings were essentially unchanged from the abdomen CT of 04/23/2018. CURRENT INPATIENT MEDICATIONS: The patient continues to be on IV ampicillin and ceftriaxone. I see the patient has been started on dobutamine drip by cardiology. He was also given a dose of Lasix 40 mg IV times one dose and he has been started on torsemide 20 mg by mouth twice a day starting tonight. ASSESSMENT AND PLAN: 1. Acute kidney injury superimposed on chronic kidney disease. It was multifactorial secondary to use of angiotensin-receptor blockers, aminoglycosides, nonsteroidal anti-inflammatory drugs (NSAIDs), and colitis with bacteremia. Renal function continue to improve. Creatinine is down to 1.5 which is close to his baseline. However, the patient needs to start diuretics at this point because he is getting fluid overloaded. 2. Chronic combined systolic and diastolic congestive heart failure. The patient has an ejection fraction of around 30%. He is not a candidate for Entresto at this point. I see he has been started on a dobutamine drip by cardiology. I have started him on torsemide 20 mg by mouth twice a day. If needed, the patient will be started on IV diuretics. 3. Hypertension. Blood pressure is acceptable. He is actually on Coreg and isosorbide for a history of combined congestive heart failure (CHF). 4. Enterococcus faecalis bacteremia. He continues to be on IV Rocephin and ampicillin. Rest of the management is as per infectious disease recommendations. 5. Chronic atrial fibrillation. Heart rate is controlled. Continue Eliquis and beta masood as per cardiology.
[2018-05-01 20:00] VITALS: BP 126/58
[2018-05-01] MEDS: **NOTE PATIENT COMMENT** MISC XX SCH (21:00)
[2018-05-01] MEDS: traMADol 50 MG TAB PO SCH (21:07)
--- NOTE | 2018-05-01 21:36 | IPN ---
DATE: 05/01/2018 CARDIOLOGY PROGRESS NOTE SUBJECTIVE: He reports having been up out of bed today and an improved appetite, less shortness of breath at this time. Remains free of any chest discomfort or awareness of his heart action. First getting up out of bed, had noticed some lightheadedness. OBJECTIVE: Slightly stocky, elderly male, currently of medium body build, appeared brighter today, responding more promptly to questions. Less back pain. Heart rate 90 per minute and irregular, blood pressure 120/72 supine, respiratory rate 18 per minute, oxygen (O2) saturation 96% on supplemental oxygen by nasal prongs at 2 liters. Intake and output balance incorrect, but his weight today is approximately 2 pounds down from yesterday. Trachea midline. Neck veins approximately 6 cm above the sternal angle. Apical impulse not palpable, heart sounds unchanged. Fair air entry over both lung kohler but still has some sacral edema. Lower extremities have virtually no edema, but his posterior thighs still have some pitting. Abdomen is soft. Still having occasional loose bowel movements. 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 Has occasional isolated premature ventricular contraction (PVC) and yesterday had a dozen beats of accelerated idioventricular rhythm but no symptomatic tachyarrhythmia. LABORATORY DATA: Hemoglobin today essentially stable at 9, normal white blood cell count, marginally reduced platelet count. Electrolytes were in balance with slightly improved BUN 30 and creatinine essentially stable at 1.5 despite his diuresis and negative fluid balance. Fasting glucose 120 this morning. IMPRESSION/PLAN: 1. Heart failure (systolic and diastolic/acute on chronic): Improved oral intake today with improved strength. With low dose dobutamine IV infusion, has diuresed with stable renal function at this time. Today, I have restarted his Entresto and intend to use his dobutamine infusion for an additional 48 hours. I anticipate he will tolerate the torsemide by mouth now that his appetite has improved. 2. Accelerated idioventricular rhythm: Believed to be possibly triggered by his dobutamine. Remains on potline monitor. He is also receiving low dose carvedilol to help control his ventricular response atrial fibrillation. No evidence of gastrointestinal (GI) bleeding on his current Eliquis therapy. 3. Coronary disease (false pass vessel/post coronary artery bypass graft/post percutaneous transluminal coronary angioplasty: Continues to be free of symptomatic myocardial ischemia. No change was made to his carvedilol, isosorbide dinitrate, low dose aspirin and atorvastatin. 4. Hypertensive heart disease (benign with heart failure): Current blood pressure is controlled on his low dose dobutamine, carvedilol, Entresto and torsemide. Renal function is stable, as mentioned above. 5. Mitral and aortic valve disorder (nonrheumatic): Auscultatory abnormalities are unchanged. Frustratingly, continues to have occasional loose bowel movements on his combination antibiotic therapy as per infectious disease. I will continue to monitor him with you for the time being and appreciate the opportunity to participate in his care.
[2018-05-01] MEDS: DOBUTamine HCL 500,000 MCG in APPROPRIATE DILUENT 1 EA IV SCH (21:43)
--- NOTE | 2018-05-01 22:04 | IPNPDOC ---
Subjective Date Seen The patient was seen on 05/01/18. Subjective Chief Complaint/HPI . General: Reports: ROS Unobtainable, Fatigue, Malaise, Normal Appetite; Denies: Chills, Night Sweats Pulmonary: Denies: Dyspnea, Cough Cardiovascular: Denies: Chest Pain, Palpitations, Orthopnea Gastrointestinal: Denies: Nausea, Vomiting, Abdominal Pain, Diarrhea, Constipation Musculoskeletal: Reports: Back Pain (continued and persistent on exam today) Neurological: Reports: Weakness Psych: Reports: Mood Normal Objective Physical Examination General Exam: Positive: Alert, Cooperative, No Acute Distress Eye Exam: Positive: PERRLA, Conjunctiva & lids normal, EOMI; Negative: Sclera icteric, Ptosis ENT Exam: Positive: Atraumatic, Mucous membr. moist/pink, Pharynx Normal, Tongue Midline; Negative: Pharyngeal Edema Neck Exam: Positive: Supple; Negative: thyromegaly, Lymphadenopathy Chest Exam: Positive: Clear to auscultation, Normal air movement; Negative: Rales, Rhonchi, Wheezing, Diminished Heart Exam: Positive: Irregular Rhythm, Normal S1, Normal S2; Negative: Gallops, Murmurs, Rubs Abdomen Exam: Positive: BS Hyperactive, Soft; Negative: Tenderness, Hepatospenomegaly, Mass, Hernia Extremity Exam: Positive: Other (mid to low thoracic continued pain on palpitation although no swelling or bruising or erythema appreciated) Skin Exam: Positive: Lesion (b/l LE wrapped) Neuro Exam: Positive: Normal Speech Psych Exam: Positive: Oriented x 3 Assessment /Plan Assessment 1. Enterococcus (E) faecalis bacteremia of unclear origin -He continues on on ampicillin and gentamicin therapy for now -He continues to complain of back pain, have scheduled Tramadol pain medication for him -CRP improved again to 3.15, WBC normalized -LAUREANO from 04/19/18 no vegitations -Will order ECHO for tomorrow, if this is negative then treat with 2 weeks of antibiotic therapy from first set of negative cultures which would be from 04/19/18-he has a pacemaker -Blood cultures so far have been negative x5 days 2. Severe back pain -This is continued and persistent, there is no evidence of infection on bone scan, thoracic spine, lumbar spine CT, only evidence of degenerative joint disease -C/w with pain management for back pain, scheduled Tramadol Plan/VTE VTE Prophylaxis Ordered?: Yes (Eliquis 2.5 mg by mouth twice a day) Plan IVF: Initiate (normal saline and 50 mLs per hour for 12 hours) Diet: Make NPO (advance diet as tolerated in the morning) Activity: Continue Current Therapy: PT Diagnostics: Check Labs, Repeat Labs in AM, CT (abdomen and pelvis without contrast) Anticipated Discharge: Home VS, I&O, 24H, Fishbone Vital Signs/I&O Vital Signs Date Time Temp Pulse Resp B/P (MAP) Pulse Ox O2 Delivery O2 Flow Rate FiO2 05/01/18 21:08 90 119/76 05/01/18 21:07 20 05/01/18 20:00 98.4 97 Nasal Cannula 2.0 I&O- Last 24 Hours up to 6 AM 05/01/18 05:59 Intake Total 60 ml Output Total 0 ml Balance 60 ml Laboratory Data 24H LABS Laboratory Tests 2 05/01/18 05:34: Nucleated Red Blood Cells % (auto) 0.0, Anion Gap 10, Glomerular Filtration Rate 47.7, Blood Urea Nitrogen 30H, Creatinine 1.53H, Sodium Level 143, Potassium Level 4.0, Chloride Level 108H, Carbon Dioxide Level 25, Calcium Level 8.2L 05/01/18 12:18: Bedside Glucose (Misc Panel) 155H 05/01/18 18:25: Bedside Glucose (Misc Panel) 101 CBC/BMP Laboratory Tests 05/01/18 05:34 Red Blood Count 3.74 L, Mean Corpuscular Volume 80.7, Mean Corpuscular Hemoglobin 24.1 L, Mean Corpuscular Hemoglobin Concent 29.8 L, Red Cell Distribution Width 17.5 H, Calcium Level 8.2 L GME ATTESTATION GME ATTESTATION My faculty preceptor for this patient encounter was physically present during the encounter and was fully available. All aspects of the patient interview, examination, medical decision making process, and medical care plan development were reviewed and approved by the faculty preceptor. The faculty preceptor is aware and concurs with the plan as stated in the body of this note and will attest to such by his/her cosignature. ELBA MARIE DO May 01, 2018 22:04
[2018-05-02] VITALS (7 sets, daily range): BP systolic 100–168; BP diastolic 56–82
[2018-05-02] MEDS: AMPICILLIN SOD 2 GM in D5W MINI-BAG PLUS 100 ML IV SCH ×5 (00:10→23:46)
[2018-05-02] MEDS: IPRATROPIUM 0.5MG/ALBUTEROL 2.5MG INH SOL UD 3ML (DUONEB)(J7620) NEB SCH ×6 (04:00→23:28)
[2018-05-02] MEDS: traMADol 50 MG TAB PO SCH ×3 (05:44→21:14)
[2018-05-02] MEDS: SODIUM CHLORIDE 0.9% INJ 10 ML SYR IV SCH ×2 (05:45→18:00)
[2018-05-02 06:08] LABS: HEMATOCRIT 30.7 % (42.0-52.0); HEMOGLOBIN 9.2 g/dl (13.5-17.5); MEAN CORPUSCULAR HEMOGLOBIN 23.8 pg (27.0-33.0); MEAN CORPUSCULAR VOLUME 79.3 fl (80.0-96.0); PLATELET COUNT, AUTOMATED 147 10^3/uL (150-450); RED BLOOD COUNT 3.87 10^6/uL (4.30-6.10); WHITE BLOOD COUNT 9.1 10^3/uL (4.0-10.0)
[2018-05-02 06:24] LABS: CALCIUM LEVEL 7.9 MG/DL (8.8-10.2); CREATININE FOR GFR 1.55 MG/DL (0.70-1.30); POTASSIUM SERUM 3.6 MEQ/L (3.5-5.1)
[2018-05-02] MEDS: HumaLOG INSULIN (NovoLOG) PER UNIT SC SCH ×4 (07:30→20:52)
[2018-05-02] MEDS: SUCRALFATE SUSP 1GM/10ML UD PO SCH ×4 (09:11→21:12)
[2018-05-02] MEDS: cefTRIAXone SOD 2 GM in D5W MINI-BAG PLUS 50 ML IV SCH ×2 (09:11→21:11)
[2018-05-02] MEDS: ATORVASTATIN 20 MG TAB PO SCH (09:12)
[2018-05-02] MEDS: LIDOCAINE 5% (LIDODERM) PATCH TD SCH (09:12)
[2018-05-02] MEDS: MULTIVITAMINS/MINERALS THERAP 1 TAB PO SCH (09:12)
[2018-05-02] MEDS: FEBUXOSTAT 40 MG TABLET (ULORIC) PO SCH (09:12)
[2018-05-02] MEDS: APIXABAN 2.5 MG TAB (ELIQUIS) PO SCH ×2 (09:12→21:14)
[2018-05-02] MEDS: ASPIRIN 81 MG ENTERIC TAB PO SCH (09:13)
[2018-05-02] MEDS: POTASSIUM CHLORIDE 10 MEQ SR TABLET PO SCH ×2 (09:13→21:12)
[2018-05-02] MEDS: ISOSORBIDE DIN. (ISORDIL) 20 MG TAB PO SCH ×3 (09:14→17:43)
[2018-05-02] MEDS: PANTOPRAZOLE 40MG TAB (PROTONIX) PO SCH (09:14)
[2018-05-02] MEDS: ENTRESTO 24-26MG TABLET (SACUBITRIL/VALSARTAN) PO SCH ×2 (09:14→21:12)
[2018-05-02] MEDS: FERROUS SULFATE 325MG TAB PO SCH ×2 (09:15→21:12)
[2018-05-02] MEDS: CARVedilol 6.25 MG TAB PO SCH ×2 (09:15→21:14)
[2018-05-02] MEDS: TORSEMIDE 20 MG TAB PO SCH ×2 (09:15→17:47)
[2018-05-02] MEDS: LEVEMIR (INSULIN DETEMIR) 1 UNITS/0.01ML SC SCH ×2 (09:16→21:12)
[2018-05-02] MEDS: LIDOCAINE 5% OINT 30 GM TOP SCH (09:16)
[2018-05-02] MEDS: AQUAPHOR **100GM** OINT TOP SCH (10:25)
--- NOTE | 2018-05-02 11:09 | IPN ---
DATE OF SERVICE: 05/01/2018 SUBJECTIVE: The patient was seen and examined at the bedside today morning. The patient is afebrile, hemodynamically stable. His renal function is stable. Creatinine is fluctuating at 1.5. Last 24-hour events were noted. The patient was started on dobutamine infusion and Entresto by cardiology for systolic heart failure. OBJECTIVE: VITAL SIGNS: Temperature is 97.8 degrees Fahrenheit, blood pressure 129/80, pulse is 100, respiratory rate of 17, saturating 99% on nasal cannula at 2 liters. INTAKE AND OUTPUT: Urine output is not being recorded because the patient is incontinent. Weight in the bed scale is 89.5 kg, which is 1 kg below his weight yesterday. PHYSICAL EXAMINATION: GENERAL: The patient awake, alert, oriented times three, laying in bed, in no apparent distress. HEAD AND NECK EXAMINATION: Extraocular muscles intact. Pupils equally round and reactive to light. There is a lipoma on the back of his neck. CARDIOVASCULAR: S1, S2. 1+ edema of the bilateral lower extremities in the thighs. RESPIRATORY: Decreased breath sounds at the bases, especially on the right. Otherwise, no active rales or rhonchi. ABDOMEN: Is soft. Positive bowel sounds. Nontender. No organomegaly. MUSCULOSKELETAL: The patient has dressings on the bilateral lower extremities, and 1+ edema of the thighs was noted. 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 The patient is following commands and moving upper extremities. LABORATORY REVIEW: Complete blood count (CBC) showed a WBC of 8.2, hemoglobin is 9, platelets are 148. Basic metabolic profile (BMP) showed sodium 143, potassium is 4, chloride 108, bicarbonate 25, BUN 30, creatinine is 1.53, it was 1.55 yesterday. CURRENT INPATIENT MEDICATIONS: The patient's medications were all reviewed by me. He has been started on Entresto 24/26 mg one tablet by mouth twice a day. He is on dobutamine drip, which was started yesterday. He is on isosorbide dinitrate 20 mg three times a day. He is on torsemide 20 mg by mouth twice a day. ASSESSMENT AND PLAN: 1. Acute kidney injury superimposed on chronic kidney disease. The patient's renal function has been stable. Creatinine has been fluctuating around 1.5, which is his baseline. Because of decompensated heart failure, he has been restarted on torsemide 20 mg by mouth twice a day. Okay to continue Entresto at this point. 2. Acute decompensated combined systolic and diastolic congestive heart failure. The patient has an ejection fraction (EF) of around 30%. Continue current dose of torsemide 20 mg by mouth twice a day. He has been started on dobutamine drip, along with Entresto, which is okay to continue for now. I will continue to monitor his renal function. Continue isosorbide. Continue Coreg 6.25 mg by mouth twice a day. 3. Chronic atrial fibrillation (AFib). Heart rate is controlled. He continues to be on Eliquis for anticoagulation. 4. Enterococcus faecalis bacteremia. He is currently on Rocephin and ampicillin. Dose is adequate for his renal function.
[2018-05-02] MEDS: ACETAMINOPHEN TAB 650MG DOSE (2X325MG) PO PRN (11:11)
[2018-05-02] MEDS: NYSTATIN 100,000 UNITS/GM TOPICAL PWD 15 GM TOP SCH ×2 (12:57→21:15)
--- NOTE | 2018-05-02 20:16 | IPN ---
DATE: 05/02/2018 Patient seen and examined continues to report back pain. Continue to report generalized weakness. Denies any chest pain, pressure or discomfort. Denies any shortness of breath. VITAL SIGNS: Temperature 96.6, pulse 84, respirations 20, blood pressure 168/73, pulse ox 96% on 2 liters nasal cannula. LABORATORY: WBC 9.1, hematocrit and hemoglobin 9.2/30.7, platelets 147,. Chemistry: Sodium 145, potassium 3.6, chloride 108, bicarbonate 29, BUN 29, creatinine 1.55. PHYSICAL EXAMINATION: GENERAL: Patient in no acute distress in bed. HEENT: Moist mucous membranes. Neck supple. No jugular venous distention. CARDIAC: Regular S1, S2. PULMONARY: Diminished breath sounds. Mild crackles bilateral base. ABDOMEN: Soft, non-tender. EXTREMITIES: Trace to 1+ edema bilateral lower extremities. DT/PT pulses intact. ASSESSMENT AND PLAN: This is a 72-year-old male patient with underlying medical history of atrial fibrillation diastolic and systolic congestive heart failure with ejection fraction 35%-40%, coronary artery disease, hypertension, diabetes mellitus, chronic kidney disease stage 3, gout, lumbar degenerative disc disease, spinal stenosis, radiculopathy, history of colon cancer, history of skin cancer, mitral insufficiency, iron deficiency anemia, dyslipidemia presented with generalized weakness and diarrhea initially was found to have enterococcus faecalis bacteremia. PROBLEMS: 1. Acute on chronic renal insufficiency. Baseline chronic kidney disease stage 3 likely secondary to gentamicin, Entresto and bacteremia. Appreciate nephrology input. Continue to monitor. Avoid nephrotoxic agent. 2. Acute on chronic systolic and diastolic congestive heart failure. Patient currently on Torsemide, dobutamine drip. Entresto has been restarted by Dr. Andrew. Monitor blood pressure. Continue Eliquis, statin, Coreg, Isordil. Monitor blood pressure. Further recommendation as per Dr. Andrew. 3. Enterococcus faecalis bacteremia. Possible source colitis versus chronic cholecystitis. Rule out endocarditis. Appreciate consultation from Dr. Vang. On Rocephin and ampicillin as per Dr. Palumbo. LAUREANO was negative for vegetation. Bone scan was negative. Repeat echo has been ordered. Further recommendation as per infectious disease. 4. Chronic back pain. CT of the spine has been appreciated. Continue current pain medication. CT of the thoracic and lumbar spine appreciated. Pain management consultation and orthopedic consultation has been called in. Further recommendation as per orthopedics and pain management. Patient is a poor surgical candidate. 5. Chronic anemia likely secondary to anemia of chronic disease. Discuss with nephrology. Patient was transfused. 6. Chronic atrial fibrillation. On Eliquis. Continue beta blockers. 7. Diabetes mellitus. Continue basal bolus insulin. Adjust as needed. 8. Diarrhea. Resolved. 9. Coronary artery disease. Continue aspirin, beta blockers, stating, Entresto. Diuresis with torsemide. Continue Isordil. Further recommendation per cardiology. Supportive care at this time. 10. Severe deconditioning. Supportive care. Continue physical therapy. 11. Infiltrate on chest x-ray. Negative CT for infiltrative. Supportive care. Continue to monitor. 12. Deep vein thrombosis prophylaxis. Patient on Eliquis. DISPOSITION: Multiple medical problems. Poor senior care prognosis. Severe deconditioning. Encourage oral intake. Likely disposition short term rehabilitation in the near future.
[2018-05-02] MEDS: **NOTE PATIENT COMMENT** MISC XX SCH (21:00)
[2018-05-02] MEDS ORDERED: CARVedilol 6.25 MG TAB PO ONE (21:30)
[2018-05-03] VITALS (8 sets, daily range): BP systolic 136–190; BP diastolic 62–100
[2018-05-03] MEDS ORDERED: FUROSEMIDE 100 MG/10 ML VIAL (J1940) IV ONE (00:15)
[2018-05-03] MEDS: IPRATROPIUM 0.5MG/ALBUTEROL 2.5MG INH SOL UD 3ML (DUONEB)(J7620) NEB SCH ×5 (04:00→20:34)
[2018-05-03 04:19] LABS: HEMATOCRIT 29.7 % (42.0-52.0); HEMOGLOBIN 8.9 g/dl (13.5-17.5); MEAN CORPUSCULAR HEMOGLOBIN 24.1 pg (27.0-33.0); MEAN CORPUSCULAR VOLUME 80.3 fl (80.0-96.0); PLATELET COUNT, AUTOMATED 138 10^3/uL (150-450); WHITE BLOOD COUNT 7.3 10^3/uL (4.0-10.0)
[2018-05-03 04:50] LABS: ALBUMIN 1.8 GM/DL (3.2-5.2); BILIRUBIN,TOTAL 0.2 MG/DL (0.2-1.0); C REACTIVE PROTEIN QUANTITATIV 5.24 MG/DL (0.00-0.30); CALCIUM LEVEL 7.5 MG/DL (8.8-10.2); CREATININE FOR GFR 1.55 MG/DL (0.70-1.30); POTASSIUM SERUM 3.7 MEQ/L (3.5-5.1); TOTAL PROTEIN 5.2 GM/DL (6.4-8.2)
[2018-05-03] MEDS: SODIUM CHLORIDE 0.9% INJ 10 ML SYR IV SCH ×2 (05:11→18:00)
[2018-05-03] MEDS: AMPICILLIN SOD 2 GM in D5W MINI-BAG PLUS 100 ML IV SCH ×4 (05:48→23:55)
[2018-05-03] MEDS: traMADol 50 MG TAB PO SCH ×3 (05:49→21:34)
--- NOTE | 2018-05-03 06:46 | ECHO ---
DATE OF PROCEDURE: 05/02/2018 DATE OF : 1945 AGE: 72 HEIGHT: 71 inches WEIGHT: 198 pounds BODY SURFACE AREA: 2.1 meters squared INPATIENT: PCU - Room 3224 REFERRING PHYSICIAN: Dorothy Lozada MD INDICATION: Bacteremia. MEASUREMENTS: 2-D Measurements: RV: 4.2 cm LV: 5.4 cm Septum: 1.5 cm Posterior wall: 1.5 cm Aortic root: 3.4 cm LA: 5.8 cm LVEF: 55-60% Doppler Measurements: AV: 2.7 m/s LVOT: 0.92 m/s LVOT diameter: 2.0 cm Mean AV systolic gradient: 14 mmHg Dimensionless index: 0.35 MV - E 101 Early mitral deceleration time: 169 ms E prime: 4.7 E/E prime ratio: 21 PCWP: 19.4 mmHg PV: 0.8 m/s Pulmonary artery acceleration time: 85 ms RVSP: 46 mmHg IVC: 2.4 cm COMMENTS: Underlying atrial fibrillation with controlled ventricular response, incomplete versus complete left bundle branch block. M-mode and two-dimensional echocardiography was performed with pulsed, continuous wave, color flow and tissue Doppler studies. Moderate eccentrically hypertrophied left ventricle with septal wall motion abnormality related to left bundle branch block versus pulmonary hypertension. Normal apical,, anterolateral, lateral and inferior wall motion. Preserved global resting systolic function. Grossly dilated left atrium with Doppler evidence of a mildly elevated mean left atrial pressure at this time. Mildly dilated right ventricle with slightly reduced wall motion and Doppler evidence of at least moderate pulmonary hypertension. Moderately dilated right atrium and mildly dilated inferior vena cava with fairly adequate respiratory collapse at this time against more than a central venous pressure upper limits of normal. At least mild calcific aortic stenosis with very mild insufficiency. Normal aortic root size. Moderate mitral annular calcification with mild to moderate insufficiency. At least mild tricuspid insufficiency with a normal appearing tricuspid valve. Pacing lead could be visualized traversing right heart structures. No separate intracardiac mass. Mild posterior pericardial effusion measuring 0.5-0.7 cm without evidence of cardiac chamber compression. Comparing today's study with his transesophageal echo report of April 19, 2018, left ventricular systolic function appears to have increased. Other findings were similar. No clear evidence of a pedunculated vegetation. MTDD
[2018-05-03 06:49] LABS: ERYTHROCYTE SEDIMENTATION RATE 64 mm/hr (0-20)
[2018-05-03] MEDS: SUCRALFATE SUSP 1GM/10ML UD PO SCH ×4 (08:32→21:32)
[2018-05-03] MEDS: HumaLOG INSULIN (NovoLOG) PER UNIT SC SCH ×4 (08:33→21:00)
[2018-05-03] MEDS: ENTRESTO 24-26MG TABLET (SACUBITRIL/VALSARTAN) PO SCH ×2 (08:34→21:32)
[2018-05-03] MEDS: ISOSORBIDE DIN. (ISORDIL) 30 MG TAB PO SCH ×3 (08:35→21:32)
[2018-05-03] MEDS: APIXABAN 2.5 MG TAB (ELIQUIS) PO SCH ×2 (08:35→21:33)
[2018-05-03] MEDS: TORSEMIDE 20 MG TAB PO SCH ×2 (08:35→16:33)
[2018-05-03] MEDS: ASPIRIN 81 MG ENTERIC TAB PO SCH (08:35)
[2018-05-03] MEDS: FEBUXOSTAT 40 MG TABLET (ULORIC) PO SCH (08:36)
[2018-05-03] MEDS: POTASSIUM CHLORIDE 10 MEQ SR TABLET PO SCH ×2 (08:36→21:33)
[2018-05-03] MEDS: FERROUS SULFATE 325MG TAB PO SCH ×2 (08:36→21:33)
[2018-05-03] MEDS: PANTOPRAZOLE 40MG TAB (PROTONIX) PO SCH (08:36)
[2018-05-03] MEDS: CALCITRIOL 0.25 MCG CAP (S0169) PO SCH (08:36)
[2018-05-03] MEDS: MULTIVITAMINS/MINERALS THERAP 1 TAB PO SCH (08:38)
[2018-05-03] MEDS: CARVedilol 12.5 MG TAB PO SCH ×2 (08:38→21:33)
[2018-05-03] MEDS: ATORVASTATIN 20 MG TAB PO SCH (08:39)
[2018-05-03] MEDS: AQUAPHOR **100GM** OINT TOP SCH (08:40)
[2018-05-03] MEDS: LEVEMIR (INSULIN DETEMIR) 1 UNITS/0.01ML SC SCH ×2 (08:41→21:32)
[2018-05-03] MEDS: LIDOCAINE 5% (LIDODERM) PATCH TD SCH (08:41)
[2018-05-03] MEDS: LIDOCAINE 5% OINT 30 GM TOP SCH (08:41)
[2018-05-03] MEDS: NYSTATIN 100,000 UNITS/GM TOPICAL PWD 15 GM TOP SCH ×2 (08:42→21:32)
--- NOTE | 2018-05-03 09:26 | IPN ---
CARDIOLOGY PROGRESS NOTE DATE: 05/02/2018 SUBJECTIVE: Claims to be much more comfortable today and is eating much better. Less problem with diarrhea. Remains free of chest discomfort, shortness of breath or lightheadedness. A stocky elderly male, barrel-chested. Not appearing in any distress at this time. Heart rate 96 beats per minute and irregular, blood pressure 158/78, respiratory rate 16, oxygen saturation 99% on supplemental oxygen by nasal prongs at 2 liters. Afebrile. Weight today is recorded at 79 kg which is 10 kg down from yesterday?? Input/output (Is and Os) balance is incorrect. Slightly pale but normal oral moisture. Trachea midline. Neck veins appear approximately 6 cm above the sternal angle. Bibasilar dullness more on the right than the left but fair air entry above this. No current lower extremity pitting but obvious thigh and sacral pitting. SQE: This shows sustained atrial fibrillation with somewhat more rapid heart rate today. Occasional isolated premature ventricular contractions (PVCs) but no further or complex ventricular arrhythmia. LABORATORY DATA: Hemoglobin 99.2 with normal white blood cell count and platelet count. Chemistry shows potassium down to 3.6 but otherwise electrolyte balance. BUN and creatinine are essentially unchanged despite resuming his diuretic. BUN 29, creatinine 1.55. IMPRESSION/PLAN: 1. Heart failure (systolic and diastolic/acute on chronic): Clinically appears to have less fluid and his increasing systolic blood pressure clearly indicative of improved left ventricular performance on dobutamine. At this point with his observed systolic blood pressure I have elected to discontinue his dobutamine and increase his carvedilol and isosorbide dinitrate. Remains on low-dose Entresto and torsemide. 2. Accelerated idioventricular rhythm: Fortunately has been free of any complex ventricular arrhythmia on the monitor. Now that we are stopping his dobutamine I anticipate his risk will be less. 3. Atrial fibrillation (chronic): Ventricular response. Slightly more rapid than yesterday. This along with his observed blood pressure is sufficient for us to increase his carvedilol back to his customary 25 mg twice a day. Remains on oral anticoagulation without obvious bleeding complication. 4. Coronary artery disease ([place] vessel)/post coronary artery bypass grafting (CABG)/post percutaneous transluminal coronary angioplasty (PTCA): Remains free of symptomatic myocardial ischemia. We are increasing his carvedilol and isosorbide dinitrate. 5. Hypertensive heart disease (benign with heart failure): His increasing blood pressure despite diuretic therapy and Entresto are a reflection of improved left ventricular function. At this time we have made adjustments to his medications as mentioned above. We will continue to monitor his chemistry closely. 6. Mitral and aortic valve disorder (non-rheumatic): No exculpatory changes today. Remains on antibiotic therapy for his colitis. I will continue to monitor him closely with you for the time being. From the cardiac standpoint, I believe he has been making some good headway in the past few days and I am cautiously optimistic that perhaps by this weekend hopefully his gastrointestinal (GI) issues will be resolved and he will be back on his customary combination antifailure/antihypertensive therapies. Thank you.
--- NOTE | 2018-05-03 11:25 | IPN ---
DATE OF SERVICE: 05/02/2018 SUBJECTIVE: The patient was seen and examined at the bedside today morning. He was getting physical therapy when I saw him. He continues to be on IV dobutamine infusion. Renal function is stable. Creatinine has been fluctuating at 1.5. He continues to be on low dose diuretics. He is otherwise hemodynamically stable. OBJECTIVE: VITAL SIGNS: Temperature is 98.3 degrees Fahrenheit, blood pressure 165/82, pulse is 102, respiratory rate of 20, saturating 99% on nasal cannula at 2 liters. INTAKE AND OUTPUT: Urine output is not being recorded well because he is having incontinent voids. Weight on the bed scale is 79 kg, which is also not reliable because it is a 10 kg different from yesterday. PHYSICAL EXAMINATION: GENERAL: The patient awake, alert, oriented times two, laying in bed, in no apparent distress. HEAD AND NECK EXAMINATION: Extraocular muscles intact. Pupils equally round and reactive to light. Lipoma on the back of the neck was noted. CARDIOVASCULAR: S1, S2. 1+ edema of the bilateral lower extremities. RESPIRATORY: Decreased breath sounds at the bases, otherwise no active rales or rhonchi. ABDOMEN: Soft. Positive bowel sounds. Nontender. No organomegaly. MUSCULOSKELETAL: The patient has dressings on the bilateral lower extremities, and 1+ edema in the thighs. 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 Power is 5/5 in bilateral upper extremities. LABORATORY REVIEW: Complete blood count (CBC) showed a WBC of 9.1, hemoglobin 9.2, platelets 147. Basic metabolic profile (BMP) showed sodium 145, potassium 3.6, chloride 108, bicarbonate 29, BUN 29, creatinine is 1.55, calcium 7.9. CURRENT INPATIENT MEDICATIONS: The patient's medications were all reviewed by me. His dobutamine drip has been stopped. He continues to be on Entresto one tablet twice a day. His Coreg dose has been increased to 25 mg by mouth twice a day. Isosorbide has been increased to 30 mg by mouth three times a day. He continues to be on torsemide 20 mg by mouth twice a day. No other change in the medications today as compared with yesterday. ASSESSMENT AND PLAN: 1. Acute kidney injury superimposed on chronic kidney disease. The patient's renal function is stable. Creatinine has been fluctuating at around 1.5. He was on dobutamine which has been stopped today. He continues to be on low dose of Entresto. Continue to monitor at this point. 2. Acute decompensated combined systolic and diastolic congestive heart failure. The patient was started on dobutamine for a few days by cardiology. His ejection fraction (EF) is very low, around 30%. He continues to be on Coreg, isosorbide, torsemide and Entresto. Dose is being adjusted by cardiology. 3. Enterococcus faecalis bacteremia. He continues to be on Rocephin and ampicillin. 4. Hypertension with chronic kidney disease and hypertensive heart disease. The patient's blood pressure is still elevated as noted above. His antihypertensive regimen has been changed today. The change is being made by cardiology.
--- NOTE | 2018-05-03 11:33 | IPN ---
DATE: 05/02/2018 Mr. Dixon continues to complain of back pain. He states his back pain is in his mid thoracic area. He also had congestive heart failure and was seen in consultation with Dr. Andrew who started him on dobutamine with some improvement in his shortness of breath. He denies any nausea, vomiting or diarrhea. No abdominal pain. He has mild diarrhea. On physical exam, edematous with multiple ecchymoses of upper extremities. Heart: Normal S1, S2, with systolic ejection murmur 2/6 unchanged. Heat irregular. Lungs: Diminished breath sounds at the bases. Lower extremities with no edema, but multiple excoriations and dry skin. Abdomen: Soft, nontender, no hepatosplenomegaly. Back: Mid thoracic tenderness with positive straight leg raising at 30 degrees on both lower extremities. IMPRESSION: 1. E. faecalis bacteremia from 04/16 and 04/17. On ampicillin and Rocephin. Repeat cultures negative on 04/19. The patient still had no focus of infection. Negative transesophageal echocardiogram (EEG) on 04/19. The patient has remained on ampicillin and Rocephin. 2. Congestive heart failure being managed by Dr. Andrew with dobutamine. Doing slightly better. 3. iarrhea Antibiotic associated. Encourage probiotics use and yogurt PLAN: Discontinue IV Rocephin. Continue with ampicillin. Will obtain followup of transthoracic echocardiogram, ESR, C-reactive protein. If all improved, we may discontinue antibiotics. Today will discontinue IV Rocephin. Continue with ampicillin. [facility]
--- NOTE | 2018-05-03 16:54 | REP ---
Procedure: PICC line exchange The procedure was performed under the direct supervision of Dr. Cramer. The risks and benefits of the procedure were explained to the patient and informed consent was obtained. The patient had the right brachial PICC line inserted on the 04/25/2018. The patient is referred for exchange of PICC line from a single lumen to the double-lumen. The existing single-lumen PICC line and insertion site were prepped and draped in a sterile fashion. A 0.018 guidewire was inserted into the existing catheter. The catheter was removed and a 5.5 Yi dilator and peel-away sheath was inserted over the guide wire. A 5.5 C dual lumen catheter was cut to length of 45 cm. The dilator was removed and, using fluoroscopic guidance, the catheter was inserted over the guide wire with the tip ending in the SVC. The catheter was affixed to the skin and a sterile dressing was applied. The catheter was flushed with heparinized saline as per Hospital protocol. The patient tolerated the procedure well and there were no immediate complications. 0.1 minutes of fluoro time was utilized for this procedure. Reviewed by TOMASA Chanel 05/03/2018 03:09 P Electronically Signed by Deion Cramer MD 05/03/2018 04:45 P
--- NOTE | 2018-05-03 17:55 | IPNPDOC ---
Text Note Date of Service The patient was seen on 05/03/18. NOTE Patient seen and examined continues to report back pain. Continue to report generalized weakness. Denies any chest pain, pressure or discomfort. Denies any shortness of breath. PHYSICAL EXAMINATION: GENERAL: Patient in no acute distress in bed. HEENT: Moist mucous membranes. Neck supple. No jugular venous distention. CARDIAC: Regular S1, S2. PULMONARY: Diminished breath sounds. Mild crackles bilateral base. ABDOMEN: Soft, non-tender. EXTREMITIES: Trace to 1+ edema bilateral lower extremities. DT/PT pulses intact. ASSESSMENT AND PLAN: This is a 72-year-old male patient with underlying medical history of atrial fibrillation diastolic and systolic congestive heart failure with ejection fraction 35%-40%, coronary artery disease, hypertension, diabetes mellitus, chronic kidney disease stage 3, gout, lumbar degenerative disc disease, spinal stenosis, radiculopathy, history of colon cancer, history of skin cancer, mitral insufficiency, iron deficiency anemia, dyslipidemia presented with generalized weakness and diarrhea initially was found to have enterococcus faecalis bacteremia. PROBLEMS: 1. Acute on chronic renal insufficiency. Baseline chronic kidney disease stage 3 likely secondary to gentamicin, Entresto and bacteremia. Appreciate nephrology input. Continue to monitor, returned to baseline. Avoid nephrotoxic agent. 2. Acute on chronic systolic and diastolic congestive heart failure. Patient currently on Torsemide, off dobutamine drip. Entresto increased by Dr. Andrew. Monitor blood pressure. Continue Eliquis, statin, Coreg, Isordil. Monitor blood pressure. Further recommendation as per Dr. Andrew. 3. Enterococcus faecalis bacteremia. Possible source colitis versus chronic cholecystitis. Rule out endocarditis. Appreciate consultation from Dr. Vang. con't ampicillin as per Dr. Palumbo. rocephin stopped by ID. f/u CRP ,ESR LAUREANO was negative for vegetation. Bone scan was negative. Repeat echo has been ordered. Further recommendation as per infectious disease. 4. Chronic back pain. CT of the spine has been appreciated. Continue current monica n medication. CT of the thoracic and lumbar spine appreciated. Pain management consultation and orthopedic consultation has been called in. Further recommendation as per orthopedics and pain management. Patient is a poor surgical candidate. 5. Chronic anemia likely secondary to anemia of chronic disease. Discuss with nephrology. Patient was transfused. 6. Chronic atrial fibrillation. On Eliquis. Continue beta blockers. 7. Diabetes mellitus. Continue basal bolus insulin. Adjust as needed. 8. Diarrhea. Resolved. 9. Coronary artery disease. Continue aspirin, beta blockers, Statin, Entresto. Diuresis with torsemide. Continue Isordil. Further recommendation per cardiology. Supportive care at this time. 10. Severe deconditioning. Supportive care. Continue physical therapy. 11. Infiltrate on chest x-ray. Negative CT for infiltrative. Supportive care. Continue to monitor. 12. Deep vein thrombosis prophylaxis. Patient on Eliquis. DISPOSITION: Multiple medical problems. Poor fpc prognosis. Severe deconditioning. Encourage oral intake. Likely disposition short term rehabilitation in the near future. VS,Fishbone, I+O VS, Fishbone, I+O Laboratory Tests 05/03/18 04:08 Red Blood Count 3.70 L, Mean Corpuscular Volume 80.3, Mean Corpuscular Hemoglobin 24.1 L, Mean Corpuscular Hemoglobin Concent 30.0 L, Red Cell Distribution Width 17.3 H, Calcium Level 7.5 L, Aspartate Amino Transf (AST/SGOT) 19, Alanine Aminotransferase (ALT/SGPT) 23, Alkaline Phosphatase 133 H, Total Bilirubin 0.2, Total Protein 5.2 L, Albumin 1.8 L Vital Signs Date Time Temp Pulse Resp B/P (MAP) Pulse Ox O2 Delivery O2 Flow Rate FiO2 05/03/18 16:33 146/76 05/03/18 16:00 98.3 96 18 94 Nasal Cannula 2.0 I&O- Last 24 Hours up to 6 AM 05/03/18 05:59 Intake Total 952 ml Output Total 200 ml Balance 752 ml DARY LUNDBERG MD May 03, 2018 17:55
--- NOTE | 2018-05-03 19:56 | IPN ---
CARDIOLOGY PROGRESS NOTE DATE: 05/03/2018 SUBJECTIVE: The patient continues to feel comfortable lying in bed but was up with physical therapy in the room. Has been free of any chest discomfort, shortness of breath or lightheadedness. OBJECTIVE: Stocky slightly barrel-chested elderly male currently appearing quite comfortable. Heart rate 88 beats per minute (BPM) and irregular, blood pressure 146/78 supine, respiratory rate 18, O2 saturation 94% on supplemental oxygen by nasal prongs at 2 liters. Afebrile. Weight today essentially stable. Normal oral moisture. No central cyanosis. Neck: Trachea midline. Neck veins approximately 6 to 8 cm above the sternal angle. Still has some dullness over the right base but improved air entry and decreasing sacral and thigh pitting edema. Lower legs are not edematous. Obvious ecchymotic lesions over both forearms related to blunt trauma and his Eliquis. 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 Occasional isolated premature ventricular contractions (PVCs) but no more complex ventricular arrhythmia off dobutamine. LABORATORY DATA: Hemoglobin today down to 8.9 with essentially normal mean corpuscular volume (MCV) free and MCHC. Normal white blood cell count and platelet count. Electrolytes today are in balance with improving BUN down to 28, creatinine 1.55 and stable. Fasting glucose 116. Albumin still low at 1.8. IMPRESSION/PLAN: 1. Heart failure (systolic and diastolic/acute on chronic): Appears relatively compensated from the cardiac standpoint. Followup echocardiogram yesterday confirmed a significant improvement in left ventricular systolic function from that transthoracic transesophageal echocardiogram of April 19. This improved ejection fraction accounts for his significantly improved blood pressure. Today I have increased his isosorbide dinitrate and Entresto as well as his carvedilol and he appears to be tolerating these well. Remains on torsemide 20 mg twice a day, his usual dose. Frustratingly his chief limitation at this time remains his back pain. 2. Chronic atrial fibrillation: Ventricular response is controlled on his customary carvedilol. Has superficial skin ecchymosis but no significant bleeding on his current Eliquis. No symptom or sign of systemic thromboembolic event. 3. Coronary disease ([place] vessel)/post coronary artery bypass surgery/post percutaneous transluminal coronary angioplasty (PTCA): Remains free of symptomatic myocardial ischemia on his customary carvedilol, increased isosorbide dinitrate, Entresto and atorvastatin. 4. Hypertensive heart disease (benign with heart failure): As mentioned, his blood pressure yesterday had significantly increased as a reflection of improved left ventricular systolic function. Current blood pressure would be considered adequately controlled on combination carvedilol, isosorbide dinitrate, Entresto, and torsemide. His renal function appears to be stable and back to baseline. 5. Mitral and aortic valve disorder (non-rheumatic): His echocardiogram again shows degenerative changes of both his mitral and aortic valvular apparatus with at least mild calcific aortic stenosis and very mild insufficiency. Moderate mitral annular calcification with mild to moderate insufficiency. These are findings unchanged from prior office study. Again, there was no clear sign of pedunculated vegetation. Remains on a combination parenteral antibiotic therapy for his presumed colitis with enterococcal bacteremia. We would hope that with physical therapy he will be able to improve his ambulation. His persistent bedrest is now looming as a significant threat to his survival. The patient appears to understand this.
[2018-05-03] MEDS: **NOTE PATIENT COMMENT** MISC XX SCH (21:00)
--- NOTE | 2018-05-03 22:40 | IPN ---
DATE: 05/03/2018 SUBJECTIVE: The patient was seen and examine at the bedside today morning. He is afebrile, hemodynamically stable. Blood pressures are actually high today. He was given a high dose of Lasix 80 mg by cardiology. Urine output is not recorded. He is having incontinent voids. However, his renal function is stable. Creatinine has been fluctuating around 1.5 for the last three days. Entresto dose was also increased by cardiology today. OBJECTIVE: VITAL SIGNS: Temperature is 98.7 degrees Fahrenheit, blood pressure 160/96, pulse is 92, respiratory rate of 22, saturating 97% on nasal canula at 2 liters. Intake and output: Urine output is not recorded. Weight on the bed scale is 80.8 kg. PHYSICAL EXAMINATION: GENERAL: The patient is awake, alert and oriented times 3, laying in bed in no apparent distress. HEAD AND NECK EXAM: Neck is supple. Extraocular muscles intact. Pupils equal, round and reactive to light. The patient has lipoma in the back of his neck. Mucous membranes are dry. CARDIOVASCULAR: S1, S2, trace edema on the bilateral extremities. RESPIRATORY: Chest is clear to auscultation bilaterally. Bilateral equal air entry. No rales or rhonchi. ABDOMEN: Soft. Positive bowel sounds. Nontender. No organomegaly. MUSCULOSKELETAL: Dressings on the bilateral lower extremities have been removed. He has multiple bruises and scabs on the legs. There is no edema of the lower extremities. CENTRAL NERVOUS SYSTEM: No focal deficit. Power is 5/5 in all extremities. LABORATORY REVIEW: Complete blood count (CBC) showed white blood count (WBC) of 7.3, hemoglobin 8.9, platelets of 138. Basic metabolic panel (BMP) showed sodium 146, potassium 3.7, chloride 108, bicarbonate 31, BUN 28, creatinine is 1.5, glucose 116, calcium is 7.5, albumin 1.8. CURRENT INPATIENT MEDICATIONS: The patient's medications were all reviewed. IV ceftriaxone has been stopped. Dobutamine was stopped yesterday and Crestor dose has been increased to 2 tablets of 24/26 mg twice a day. He has been started on ampicillin 2 gram IV every 6 hours. Coreg dose has increased to 25 mg by mouth twice a day. He was given one dose of Lasix 80 mg IV last night. Isosorbide dose has been increased to 30 mg by mouth three times a day. No other change in medications today as compared with yesterday. He also continues to be on torsemide 20 mg by mouth twice day. ASSESSMENT AND PLAN: 1. Acute kidney disease superimposed on chronic kidney disease. Acute kidney disease was multifactorial. However, his renal function has improved. He continues to tolerate current dose of diuretics and Entresto. Renal function is stable. Creatinine has been fluctuating at around 1.5. 2. Acute decompensated combined systolic and diastolic congestive heart failure. The patient was on dobutamine drip up until yesterday, which was being managed by cardiology. He has a very low ejection fraction of around 30%. Coreg and isosorbide dose along with Entresto increased recently. The patient is getting hypernatremic and there is no evidence of edema. I would not increase the dose of torsemide. Continue current dose of 20 mg by mouth twice a day. 3. Hypertension with chronic kidney disease and hypertensive heart disease. Blood pressure is elevated and dose of antihypertensive medications have already been increased by cardiology today morning. No further escalation of regimen at this point. 4. Enterococcus faecalis bacteremia. The patient was on Rocephin. Antibiotics have been changed to IV ampicillin. Dose and duration of antibiotics is as per infectious disease.
[2018-05-04 03:58] VITALS: BP 132/78
[2018-05-04] MEDS: IPRATROPIUM 0.5MG/ALBUTEROL 2.5MG INH SOL UD 3ML (DUONEB)(J7620) NEB SCH ×6 (04:00→20:35)
[2018-05-04] MEDS: AMPICILLIN SOD 2 GM in D5W MINI-BAG PLUS 100 ML IV SCH ×3 (05:37→17:21)
[2018-05-04] MEDS: SODIUM CHLORIDE 0.9% INJ 10 ML SYR IV SCH ×2 (05:38→17:21)
[2018-05-04] MEDS: traMADol 50 MG TAB PO SCH ×4 (05:38→21:17)
[2018-05-04 06:02] LABS: HEMATOCRIT 29.1 % (42.0-52.0); HEMOGLOBIN 8.7 g/dl (13.5-17.5); MEAN CORPUSCULAR HEMOGLOBIN 24.4 pg (27.0-33.0); MEAN CORPUSCULAR HGB CONC 29.9 g/dl (32.0-36.5); MEAN CORPUSCULAR VOLUME 81.5 fl (80.0-96.0); PLATELET COUNT, AUTOMATED 126 10^3/uL (150-450); RED BLOOD COUNT 3.57 10^6/uL (4.30-6.10); WHITE BLOOD COUNT 7.2 10^3/uL (4.0-10.0)
[2018-05-04 06:20] LABS: CREATININE FOR GFR 1.62 MG/DL (0.70-1.30); GLOMERULAR FILTRATION RATE 44.7 (>42); POTASSIUM SERUM 3.6 MEQ/L (3.5-5.1)
[2018-05-04 08:00] VITALS: BP 170/80
[2018-05-04 08:32] LABS: C REACTIVE PROTEIN QUANTITATIV 3.73 MG/DL (0.00-0.30)
[2018-05-04] MEDS: LIDOCAINE 5% (LIDODERM) PATCH TD SCH (09:05)
[2018-05-04] MEDS: HumaLOG INSULIN (NovoLOG) PER UNIT SC SCH ×4 (09:06→21:00)
[2018-05-04] MEDS: SUCRALFATE SUSP 1GM/10ML UD PO SCH ×4 (09:07→21:00)
[2018-05-04] MEDS: LEVEMIR (INSULIN DETEMIR) 1 UNITS/0.01ML SC SCH ×2 (09:07→21:15)
[2018-05-04] MEDS: ENTRESTO 24-26MG TABLET (SACUBITRIL/VALSARTAN) PO SCH ×2 (09:07→21:00)
[2018-05-04] MEDS: ACETAMINOPHEN TAB 650MG DOSE (2X325MG) PO PRN (09:08)
[2018-05-04] MEDS: CARVedilol 12.5 MG TAB PO SCH ×2 (09:08→21:02)
[2018-05-04] MEDS: MULTIVITAMINS/MINERALS THERAP 1 TAB PO SCH (09:08)
[2018-05-04] MEDS: POTASSIUM CHLORIDE 10 MEQ SR TABLET PO SCH ×2 (09:08→21:00)
[2018-05-04] MEDS: FEBUXOSTAT 40 MG TABLET (ULORIC) PO SCH (09:08)
[2018-05-04] MEDS: PANTOPRAZOLE 40MG TAB (PROTONIX) PO SCH (09:08)
[2018-05-04] MEDS: ATORVASTATIN 20 MG TAB PO SCH (09:08)
[2018-05-04] MEDS: TORSEMIDE 20 MG TAB PO SCH ×2 (09:09→17:20)
[2018-05-04] MEDS: ASPIRIN 81 MG ENTERIC TAB PO SCH (09:09)
[2018-05-04] MEDS: ISOSORBIDE DIN. (ISORDIL) 30 MG TAB PO SCH ×3 (09:09→21:01)
[2018-05-04] MEDS: FERROUS SULFATE 325MG TAB PO SCH ×2 (09:09→21:00)
[2018-05-04] MEDS: APIXABAN 2.5 MG TAB (ELIQUIS) PO SCH ×2 (09:09→21:14)
[2018-05-04] MEDS: LIDOCAINE 5% OINT 30 GM TOP SCH (09:10)
[2018-05-04] MEDS: AQUAPHOR **100GM** OINT TOP SCH (09:10)
[2018-05-04] MEDS: NYSTATIN 100,000 UNITS/GM TOPICAL PWD 15 GM TOP SCH ×2 (09:12→21:16)
[2018-05-04] MEDS ORDERED: POTASSIUM CHLORIDE 10 MEQ SR TABLET PO ONE (10:00)
[2018-05-04 12:00] VITALS: BP 160/72
[2018-05-04 16:00] VITALS: BP 138/80
--- NOTE | 2018-05-04 17:07 | IPNPDOC ---
Text Note Date of Service The patient was seen on 05/04/18. NOTE Patient seen and examined continues to report back pain. Continue to report generalized weakness. Denies any chest pain, pressure or discomfort. Denies any shortness of breath. remained very weak. not progressing with PT. PHYSICAL EXAMINATION: GENERAL: Patient in no acute distress in bed. HEENT: Moist mucous membranes. Neck supple. No jugular venous distention. CARDIAC: Regular S1, S2. PULMONARY: Diminished breath sounds. Mild crackles bilateral base. ABDOMEN: Soft, non-tender. EXTREMITIES: Trace to 1+ edema bilateral lower extremities. DT/PT pulses intact. ASSESSMENT AND PLAN: This is a 72-year-old male patient with underlying medical history of atrial fibrillation diastolic and systolic congestive heart failure with ejection fraction 35%-40%, coronary artery disease, hypertension, diabetes mellitus, chronic kidney disease stage 3, gout, lumbar degenerative disc disease, spinal stenosis, radiculopathy, history of colon cancer, history of skin cancer, mitral insufficiency, iron deficiency anemia, dyslipidemia presented with generalized weakness and diarrhea initially was found to have enterococcus faecalis bacteremia. PROBLEMS: 1. Acute on chronic renal insufficiency. Baseline chronic kidney disease stage 3 likely secondary to gentamicin, Entresto and bacteremia. Appreciate nephrology input. Continue to monitor, returned to baseline. Avoid nephrotoxic agent. 2. Acute on chronic systolic and diastolic congestive heart failure. Patient currently on Torsemide, off dobutamine drip. Entresto increased by Dr. Andrew. Monitor blood pressure. Continue Eliquis, statin, Coreg, Isordil. Monitor blood pressure. Further recommendation as per Dr. Andrew. 3. Enterococcus faecalis bacteremia. Possible source colitis versus chronic cholecystitis. Rule out endocarditis. Appreciate consultation from Dr. Vang. con't ampicillin as per Dr. Palumbo. rocephin stopped by ID. f/u CRP ,ESR LAUREANO was negative for vegetation. Bone scan was negative. Repeat echo has been ordered. Further recommendation as per infectious disease. 4. Chronic back pain. CT of the spine has been appreciated. Continue current pain medication. CT of the thoracic and lumbar spine appreciated. Pain management consultation and orthopedic consultation has been called in. Further recommendation as per orthopedics and pain management. Patient is a poor surgical candidate. 5. Chronic anemia likely secondary to anemia of chronic disease. Discuss with nephrology. Patient was transfused. 6. Chronic atrial fibrillation. On Eliquis. Continue beta blockers. 7. Diabetes mellitus. Continue basal bolus insulin. Adjust as needed. 8. Diarrhea. Resolved. 9. Coronary artery disease. Continue aspirin, beta blockers, Statin, Entresto. Diuresis with torsemide. Continue Isordil. Further recommendation per cardiology. Supportive care at this time. 10. Severe deconditioning. Supportive care. Continue physical therapy. 11. Infiltrate on chest x-ray. Negative CT for infiltrative. Supportive care. Continue to monitor. 12. Deep vein thrombosis prophylaxis. Patient on Eliquis. DISPOSITION: Multiple medical problems. 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 Severe deconditioning. Encourage oral intake. Likely disposition short term rehabilitation in the near future. VS,Fishbone, I+O VS, Fishbone, I+O Laboratory Tests 05/04/18 05:36 Red Blood Count 3.57 L, Mean Corpuscular Volume 81.5, Mean Corpuscular Hemoglobin 24.4 L, Mean Corpuscular Hemoglobin Concent 29.9 L, Red Cell Distribution Width 17.4 H 05/04/18 05:37 Calcium Level 8.0 L Vital Signs Date Time Temp Pulse Resp B/P (MAP) Pulse Ox O2 Delivery O2 Flow Rate FiO2 05/04/18 12:55 17 05/04/18 12:00 98.5 85 160/72 (101) 95 Nasal Cannula 2.0 I&O- Last 24 Hours up to 6 AM 05/04/18 06:00 Intake Total 400 ml Output Total 0 ml Balance 400 ml DARY LUNDBERG MD May 04, 2018 17:07
--- NOTE | 2018-05-04 19:55 | IPN ---
CARDIOLOGY PROGRESS NOTE DATE OF SERVICE: 05/04/2018 Frustratingly remains limited essentially bed-bound by his severe back pain even in the supine position. Has had no shortness of breath. Denies any chest discomfort or dizziness. Tolerating his current medications without adverse effect. SUBJECTIVE: This stocky, slightly barrel-chested elderly male appears somewhat depressed by his ongoing back pain. Heart rate 78 bpm and irregular, blood pressure 140/80, respiratory rate 18 per minute, O2 saturation 99% on supplemental oxygen by nasal prongs at 2 liters. Afebrile. With his diuretic therapy he has lost an additional 2 kg from yesterday. Has some upper extremity swelling related to his IVS:, but no longer has any leg edema and no more than plus/minus sacral pitting. Neck veins appear approximately 6 cm above the sternal angle. Good air entry over both lung kohler with few basilar rales that clear with a cough. 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 Occasional isolated asymptomatic PVCs. BLOOD WORK: Hemoglobin down to 8.7 today. Normal white blood cell count. Platelet count also slightly down to [id number]. Has ecchymotic areas over both forearms, but this does not appear to be worse than yesterday. Electrolytes were in balance. BUN and creatinine essentially stable at 30 and 1.6, fasting glucose 108. IMPRESSION/PLAN: 1. Heart failure (systolic and diastolic / acute on chronic): As mentioned yesterday, believed to be at his functional dry weight. Echocardiogram the day before yesterday showed virtual normalization of his left ventricular systolic function on his current medical therapy post diuresis. Appears to be tolerating combination carvedilol, isosorbide dinitrate and Entresto. Should his BUN and creatinine start increasing further I would be tempted to back off his torsemide to perhaps 20 mg daily rather than discontinue his Entresto if possible. 2. Chronic atrial fibrillation: Ventricular response well-controlled on his carvedilol, slightly worsening normocytic normochromic anemia and ongoing superficial skin ecchymoses but no significant bleeding on Eliquis. 3. Coronary artery disease ([place] vessel) post CABG / post PTCA: Continues free of chest pain on his combination protective therapy. 4. Hypertensive heart disease (benign with heart failure): Current blood pressure would be considered adequately controlled given his renal insufficiency. We are not planning on any further change to his medications. Fortunately renal function appears to be fairly stable but as mentioned should his BUN and creatinine increase, we would hope to be able to maintain the same dose of Entresto but back off his diuretic therapy. 5. Mitral and aortic valve disorder (non rheumatic): Exculpatory findings today remain unchanged. Not felt to have any symptoms or signs of endocarditis. Remains on combination parenteral antibiotic therapy per infectious disease. Frustratingly his chief disabling problem remains his back pain. He appears to understand that his inactivity increases his risk of potentially life- threatening problem such as pneumonia. At this point, cardiology will follow [place]. [place]
[2018-05-04 20:20] VITALS: BP 133/80
[2018-05-04] MEDS: **NOTE PATIENT COMMENT** MISC XX SCH (21:00)
--- NOTE | 2018-05-04 21:24 | ECGEPIP ---
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
[2018-05-05] VITALS (8 sets, daily range): BP systolic 123–160; BP diastolic 67–77; O2SAT 99
[2018-05-05] MEDS: AMPICILLIN SOD 2 GM in D5W MINI-BAG PLUS 100 ML IV SCH ×5 (00:01→23:16)
[2018-05-05] MEDS: IPRATROPIUM 0.5MG/ALBUTEROL 2.5MG INH SOL UD 3ML (DUONEB)(J7620) NEB SCH ×5 (04:00→20:26)
[2018-05-05 05:30] LABS: HEMATOCRIT 27.8 % (42.0-52.0); HEMOGLOBIN 8.3 g/dl (13.5-17.5); MEAN CORPUSCULAR HEMOGLOBIN 24.3 pg (27.0-33.0); MEAN CORPUSCULAR HGB CONC 29.9 g/dl (32.0-36.5); MEAN CORPUSCULAR VOLUME 81.5 fl (80.0-96.0); PLATELET COUNT, AUTOMATED 129 10^3/uL (150-450); RED BLOOD COUNT 3.41 10^6/uL (4.30-6.10); WHITE BLOOD COUNT 7.2 10^3/uL (4.0-10.0)
[2018-05-05] MEDS: traMADol 50 MG TAB PO SCH ×3 (05:43→21:06)
[2018-05-05] MEDS: SODIUM CHLORIDE 0.9% INJ 10 ML SYR IV SCH ×2 (05:45→17:22)
[2018-05-05 06:09] LABS: C REACTIVE PROTEIN QUANTITATIV 3.85 MG/DL (0.00-0.30); CALCIUM LEVEL 7.4 MG/DL (8.8-10.2); CREATININE FOR GFR 1.58 MG/DL (0.70-1.30); POTASSIUM SERUM 4.2 MEQ/L (3.5-5.1)
[2018-05-05] MEDS: FEBUXOSTAT 40 MG TABLET (ULORIC) PO SCH (09:28)
[2018-05-05] MEDS: CARVedilol 12.5 MG TAB PO SCH ×2 (09:29→21:04)
[2018-05-05] MEDS: ATORVASTATIN 20 MG TAB PO SCH (09:29)
[2018-05-05] MEDS: ASPIRIN 81 MG ENTERIC TAB PO SCH (09:29)
[2018-05-05] MEDS: TORSEMIDE 20 MG TAB PO SCH (09:29)
[2018-05-05] MEDS: HumaLOG INSULIN (NovoLOG) PER UNIT SC SCH ×4 (09:30→20:53)
[2018-05-05] MEDS: APIXABAN 2.5 MG TAB (ELIQUIS) PO SCH ×2 (09:31→21:06)
[2018-05-05] MEDS: FERROUS SULFATE 325MG TAB PO SCH ×2 (09:31→21:03)
[2018-05-05] MEDS: CALCITRIOL 0.25 MCG CAP (S0169) PO SCH (09:31)
[2018-05-05] MEDS: LEVEMIR (INSULIN DETEMIR) 1 UNITS/0.01ML SC SCH ×2 (09:31→21:07)
[2018-05-05] MEDS: ISOSORBIDE DIN. (ISORDIL) 30 MG TAB PO SCH ×3 (09:31→21:05)
[2018-05-05] MEDS: LIDOCAINE 5% (LIDODERM) PATCH TD SCH (09:31)
[2018-05-05] MEDS: ENTRESTO 24-26MG TABLET (SACUBITRIL/VALSARTAN) PO SCH ×2 (09:32→21:03)
[2018-05-05] MEDS: SUCRALFATE SUSP 1GM/10ML UD PO SCH ×4 (09:32→21:06)
[2018-05-05] MEDS: PANTOPRAZOLE 40MG TAB (PROTONIX) PO SCH (09:32)
[2018-05-05] MEDS: MULTIVITAMINS/MINERALS THERAP 1 TAB PO SCH (09:32)
[2018-05-05] MEDS: POTASSIUM CHLORIDE 10 MEQ SR TABLET PO SCH ×2 (09:33→21:05)
[2018-05-05] MEDS: AQUAPHOR **100GM** OINT TOP SCH (09:36)
[2018-05-05] MEDS: LIDOCAINE 5% OINT 30 GM TOP SCH (09:36)
[2018-05-05] MEDS: NYSTATIN 100,000 UNITS/GM TOPICAL PWD 15 GM TOP SCH ×2 (09:36→20:52)
--- NOTE | 2018-05-05 17:25 | IPN ---
DATE: 05/04/2018 Mr. Dixon seemed to be stable, continues complaining of significant back pain. He is not getting out of bed. He has a decubitus ulcer that was bleeding on his right buttock cheek that does not look infected. He has no nausea, vomiting or diarrhea. His back pain is unchanged. LABORATORY DATA: White count of 7.2, hemoglobin 8.7, hematocrit 29, platelets 126. ESR 64. Sodium 143, potassium 3.6, chloride 105, bicarbonate 31, BUN 30, creatinine 1.62, glucose 108, calcium 8, CRP 3.73 down from 8.96, blood cultures 04/16/2018 and 04/17/2018 positive for Enterococcus (E) faecalis 04/19/2018 no growth. The patient has been on appropriate antibiotics, currently on IV ampicillin, Rocephin was discontinued since there was no evidence of endocarditis. He received a total of 10 days of IV Rocephin combination with ampicillin. On physical exam, temperature is 97.7, pulse 86, respirations 18, blood pressure 138/80, oxygen saturation 99% on 2 liters nasal cannula. Heart: Normal S1, S2, with a systolic ejection murmur 2/6 heard best at the left lower sternal border. No evidence of vegetation on transthoracic echocardiogram and transesophageal echocardiogram. Transthoracic echocardiogram (TTE) was repeated on 05/02/2018. 2. Severe back pain mid-thoracic with no evidence of discitis on thoracic spine and bone scan, lumbar CT, thoracic CT. Back pain could be degenerative disc disease but the concern about discitis due to Enterococcus (E) faecalis bacteremia remains there. The patient continues on ampicillin. 3. Congestive heart failure, on IV dobutamine has improved. The patient has a pacemaker, automatic implantable cardioverter defibrillator (AICD), and therefore at risk of seeding his cardiac leads due to E. faecalis. PLAN: Due to the fact that we had no source of infection for his Enterococcus faecalis, I have opted to continue his treatment for a total of 6 weeks for presumptive discitis as his back pain is significant and new. Will continue with ampicillin for a total of 6 weeks with end of therapy being 06/18/2018. Continue monitoring complete blood count (CBC), basic profile, sedimentation rate and C-reactive protein (CRP) on antibiotics.
--- NOTE | 2018-05-05 17:54 | IPNPDOC ---
Text Note Date of Service The patient was seen on 05/05/18. NOTE Patient seen and examined continues to report back pain. Denies any chest pain, pressure or discomfort. Denies any shortness of breath. not progressing with PT. PHYSICAL EXAMINATION: GENERAL: Patient in no acute distress in bed. HEENT: Moist mucous membranes. Neck supple. No jugular venous distention. CARDIAC: Regular S1, S2. PULMONARY: Diminished breath sounds. Mild crackles bilateral base. ABDOMEN: Soft, non-tender. Back: stage 2 sacral decub ulcer EXTREMITIES: Trace to 1+ edema bilateral lower extremities. DT/PT pulses intact. ASSESSMENT AND PLAN: This is a 72-year-old male patient with underlying medical history of atrial fibrillation diastolic and systolic congestive heart failure with ejection fraction 35%-40%, coronary artery disease, hypertension, diabetes mellitus, chronic kidney disease stage 3, gout, lumbar degenerative disc disease, spinal stenosis, radiculopathy, history of colon cancer, history of skin cancer, mitral insufficiency, iron deficiency anemia, dyslipidemia presented with generalized weakness and diarrhea initially was found to have enterococcus faecalis bacteremia. PROBLEMS: 1. Acute on chronic renal insufficiency. Baseline chronic kidney disease stage 3 likely secondary to gentamicin, Entresto and bacteremia. Appreciate nephrology input. Continue to monitor, returned to baseline. Avoid nephrotoxic agent. 2. Acute on chronic systolic and diastolic congestive heart failure. Patient currently on Torsemide dose adjusted, off dobutamine drip. Entresto increased by Dr. Andrew. Monitor blood pressure. Continue Eliquis, statin, Coreg, Isordil. Monitor blood pressure. Further recommendation as per Dr. Andrew. 3. Enterococcus faecalis bacteremia. Possible source Discitis, colitis versus chronic cholecystitis. Rule out endocarditis. Appreciate consultation from Dr. Vang. con't ampicillin as per Dr. Palumbo. rocephin stopped by ID. f/u CRP ,ESR LAUREANO was negative for vegetation. Bone scan was negative. Repeat echo has been ordered. Further recommendation as per infectious disease. likely need 6 months course 4. Chronic back pain. CT of the spine has been appreciated. Continue current pain medication. CT of the thoracic and lumbar spine appreciated. Pain management consultation and orthopedic consultation has been called in. Further recommendation as per orthopedics and pain management. Patient is a poor surgical candidate. 5. Chronic anemia likely secondary to anemia of chronic disease. Discuss with nephrology. Patient was transfused. 6. Chronic atrial fibrillation. On Eliquis. Continue beta blockers. 7. Diabetes mellitus. Continue basal bolus insulin. Adjust as needed. 8. Diarrhea. Resolved. 9. Coronary artery disease. Continue aspirin, beta blockers, Statin, Entresto. Diuresis with torsemide. Continue Isordil. Further recommendation per cardiology. Supportive care at this time. 10. Severe deconditioning. Supportive care. Continue physical therapy. 11. Infiltrate on chest x-ray. Negative CT for infiltrative. Supportive care. Continue to monitor. 12. Deep vein thrombosis prophylaxis. Patient on Eliquis. DISPOSITION: Multiple medical problems. Poor rn long term care prognosis. Severe deconditioning. Encourage oral intake. Likely disposition short term rehabilitation in the near future. VS,Fishbone, I+O VS, Fishbone, I+O Laboratory Tests 05/05/18 05:05 Red Blood Count 3.41 L, Mean Corpuscular Volume 81.5, Mean Corpuscular Hemoglobin 24.3 L, Mean Corpuscular Hemoglobin Concent 29.9 L, Red Cell Distribution Width 17.4 H, Calcium Level 7.4 L Vital Signs Date Time Temp Pulse Resp B/P (MAP) Pulse Ox O2 Delivery O2 Flow Rate FiO2 05/05/18 16:00 2.0 05/05/18 14:46 137/72 05/05/18 14:46 16 05/05/18 12:00 97.9 87 100 Nasal Cannula I&O- Last 24 Hours up to 6 AM 05/05/18 06:00 Intake Total 180 ml Balance 180 ml DARY LUNDBERG MD May 05, 2018 17:54
[2018-05-05] MEDS: **NOTE PATIENT COMMENT** MISC XX SCH (20:37)
--- NOTE | 2018-05-05 20:42 | IPN ---
DATE: 05/04/2018 SUBJECTIVE: Patient was seen and examined at the bedside today morning. Patient reports that he is generally not feeling well, however, he does not have any active complaints. His renal function is stable. Creatinine has been fluctuating between 1.5 to 1.6. His antihypertensive regimen is being adjusted by cardiology. He continues to be on low dose of diuretics. OBJECTIVE: VITAL SIGNS: Temperature is 98.5 degrees Fahrenheit, blood pressure 160/72, pulse 81, respiratory rate of 18, saturating 95% on nasal cannula at 2 liters. Intake and output: Urine output is not being recorded because he has incontinent voids. Weight on the bed scale is 78.6 kg which is lower than the weight yesterday. PHYSICAL EXAMINATION: GENERAL: The patient is laying in bed. No apparent distress. Slow to answer questions but he is otherwise oriented times three. HEAD/NECK: Extraocular muscles intact. Pupils equally round and reactive to light. Mucous membranes are moist. Neck is supple. There is no jugular venous distention (JVD). Mucous membranes are dry. CARDIOVASCULAR: S1, S2. No edema of the bilateral lower extremities. RESPIRATORY: Chest is clear to auscultation bilaterally. Bilateral equal air entry. No rales or rhonchi. ABDOMEN: Soft. Positive bowel sounds. Nontender. No organomegaly. MUSCULOSKELETAL: Patient has multiple ecchymosis and scabs on bilateral lower extremities. Otherwise no edema of the bilateral lower extremities. CENTRAL NERVOUS SYSTEM: No focal deficit. Power is 5/5 in bilateral upper extremities. LAB REVIEW: CBC showed a WBC of 7.2, hemoglobin 8.7, platelets of 126. BMP showed sodium 143, potassium 3.6, chloride 105, bicarbonate 31, BUN 30, creatinine is 1.6. It was 1.55 yesterday. Calcium is 8. CURRENT INPATIENT MEDICATIONS: The patient's medications were all reviewed by me. He continues to be on two tablets of Entresto 24/26 mg. He is also on torsemide 20 mg by mouth twice a day. ASSESSMENT AND PLAN: 1. Acute kidney injury superimposed on chronic kidney disease, stage III. Patient's renal function has improved. Acute kidney injury was multifactorial. He has been restarted on Entresto and diuretics. Renal function has been staying stable. 2. Acute decompensated combined systolic and diastolic congestive heart failure. Volume status is improving. Continue torsemide 20 mg by mouth twice a day. LV ejection fraction is only 30%. Entresto dose along with Coreg and isosorbide is being monitored and adjusted by cardiology. Volume status is very well optimized. 3. Hypertension with chronic kidney disease and hypertensive heart disease. Blood pressure was elevated yesterday. After adjustment of his antihypertensive including Coreg, isosorbide and Entresto his blood pressures are significantly better now. 4. Enterococcus faecalis bacteremia. Patient continues to be on ampicillin. Duration of antibiotic is as per infectious disease.
[2018-05-06] VITALS (7 sets, daily range): BP systolic 108–147; BP diastolic 51–81; O2SAT 92
[2018-05-06] MEDS: IPRATROPIUM 0.5MG/ALBUTEROL 2.5MG INH SOL UD 3ML (DUONEB)(J7620) NEB SCH ×7 (00:21→23:59)
[2018-05-06] MEDS: traMADol 50 MG TAB PO SCH ×3 (05:26→21:00)
[2018-05-06] MEDS: SODIUM CHLORIDE 0.9% INJ 10 ML SYR IV SCH ×2 (05:27→13:30)
[2018-05-06] MEDS: AMPICILLIN SOD 2 GM in D5W MINI-BAG PLUS 100 ML IV SCH ×4 (05:27→23:46)
[2018-05-06 05:44] LABS: HEMATOCRIT 23.9 % (42.0-52.0); HEMOGLOBIN 7.1 g/dl (13.5-17.5); MEAN CORPUSCULAR HEMOGLOBIN 23.8 pg (27.0-33.0); MEAN CORPUSCULAR HGB CONC 29.7 g/dl (32.0-36.5); MEAN CORPUSCULAR VOLUME 80.2 fl (80.0-96.0); PLATELET COUNT, AUTOMATED 129 10^3/uL (150-450); RED BLOOD COUNT 2.98 10^6/uL (4.30-6.10); WHITE BLOOD COUNT 6.3 10^3/uL (4.0-10.0)
[2018-05-06 06:28] LABS: C REACTIVE PROTEIN QUANTITATIV 4.05 MG/DL (0.00-0.30); CALCIUM LEVEL 7.8 MG/DL (8.8-10.2); CREATININE FOR GFR 1.61 MG/DL (0.70-1.30); MAGNESIUM LEVEL 1.6 MG/DL (1.8-2.4); POTASSIUM SERUM 4.4 MEQ/L (3.5-5.1)
[2018-05-06] MEDS ORDERED: MAG SULF 1GM/100ML (MAG RUN) 1 GM in APPROPRIATE DILUENT 1 EA IV ONE (07:30)
--- NOTE | 2018-05-06 08:03 | IPN ---
DATE: 05/05/2018 SUBJECTIVE: Patient was seen and examined at the bedside today morning. He is afebrile and hemodynamically stable. His renal function is stable. Creatinine has been fluctuating around 1.6 to 1.5. He was getting ready for physical therapy when I saw him today morning. OBJECTIVE: VITAL SIGNS: Temperature is 98 degrees Fahrenheit, blood pressure 160/74, pulse 81, respiratory rate of 18, saturating 95% on nasal cannula at 2 liters. Intake and output: Urine output is not being recorded. He is having incontinent voids. Weight on the bed scale is stable at 77.6 kg. PHYSICAL EXAMINATION: GENERAL: The patient is laying in bed. No apparent distress. Slow to answer questions but he is otherwise oriented times three. HEAD/NECK: Extraocular muscles intact. Pupils equally round and reactive to light. Mucous membranes are moist. Neck is supple. There is no jugular venous distention (JVD). Mucous membranes are dry. CARDIOVASCULAR: S1, S2. No edema of the bilateral lower extremities. RESPIRATORY: Chest is clear to auscultation bilaterally. Bilateral equal air entry. No rales or rhonchi. ABDOMEN: Soft. Positive bowel sounds. Nontender. No organomegaly. MUSCULOSKELETAL: Patient has multiple bruises in the bilateral lower extremities. Otherwise no edema of the bilateral lower extremities. CENTRAL NERVOUS SYSTEM: No focal deficit. Power is 5/5 in bilateral upper extremities. But he is very weak and unable to get up and walk. LAB REVIEW: CBC showed a WBC of 7.2, hemoglobin 8.3, platelets of 129. BMP showed sodium 146, potassium 4.2, chloride 108, bicarbonate 30, BUN 28, creatinine is 1.5. It was 1.55 yesterday. Calcium is 7.4, c-reactive protein 3.5. CURRENT INPATIENT MEDICATIONS: The patient's medications were all reviewed by me. There is no change in the medications today as compared with yesterday, however I am going to change his torsemide to 20 mg by mouth once a day. ASSESSMENT AND PLAN: 1. Acute kidney injury superimposed on chronic kidney disease, stage III. Patient's renal function has improved back to baseline. He is tolerating Entresto and diuretics, however his volume status is significantly optimized. His sodium is going up so I am decreasing the torsemide dose, otherwise his renal function is stable. Acute kidney injury was multifactorial. He has been restarted on Entresto and diuretics. Renal function has been staying stable. 2. Decompensated combined systolic and diastolic congestive heart failure. Volume status has significantly been optimized. improving. Continue torsemide 20 mg by mouth twice a day. LV ejection fraction is only 30%. Coreg, isosorbide and Entresto dose have been adjusted by cardiology. He has no significant edema. I have decreased the torsemide dose to 20 mg by mouth once a day. 3. Hypertension with chronic kidney disease and hypertensive heart disease. Blood pressure was up and continue current medications except the diuretic which has been decreased. 4. Enterococcus faecalis bacteremia. Repeat cultures are negative. Will continue ampicillin at this point. 5. Anemia secondary to chronic kidney disease. Patient's iron levels were low and he is currently on ferrous sulfate twice a day. He is not a candidate of IV Venofer because of bacteremia. Transfuse as needed for hemoglobin 8 or below. DISPOSITION: Patient's renal function is stable. Volume status is optimized. Nephrology service is going to sign off. Please call nephrology service for any help in the management of this patient during this hospitalization.
--- NOTE | 2018-05-06 09:16 | IPN ---
DATE: 05/05/2018 Mr. Dixon is sitting in a chair today. He is pretty alert and talkative, in a good mood. He sill complains of back pain, otherwise he feels well. He would like his legs to be wrapped because he states whenever they are not wrapped they are more painful. He has been afebrile. Temperature is 97.9, pulse 87, respirations 22, blood pressure 137/72, O2 sat 100% on 2 liters nasal cannula. Heart: Normal S1, S2. No murmurs appreciated. Lungs are clear. Diminished at the bases, no wheezes, rales rhonchi. Abdomen: Obese, soft, nontender. Extremities: No edema. Dry scaly lesions on his legs and some scabs. No edema. No open lesions. Decubitus ulcer on the right buttock cheek measuring 3 x 1 cm, Stage 2. LABORATORY DATA: White count is 7.2, hemoglobin 8.3, hematocrit 27.8, platelets 129. ESR 64. Sodium 146, potassium 4.2, chloride 108, bicarb 30, BUN 28, creatinine 1.58, glucose 108, calcium 7.4, CRP 3.85. Blood cultures positive for E. faecalis 04/16 and 04/17, negative on 04/19. IMPRESSION: 1. E. faecalis bacteremia with out focus of infection that could be identified on x-ray, but patient with continued mid thoracic back pain still concerning for diskitis as the patient has not been able to get up on his own and walk, which is his usual baseline. He was treated with IV ampicillin and Rocephin for 1 week, now on IV ampicillin which will be continued for a total of 6 weeks. Transesophageal echocardiogram was negative. The patient is being treated for presumptive diskitis. 2. Congestive heart failure, on IV dobutamine with marked improvement. This has been discontinued. 3. Sacral decubitus ulcer. The patient is on an air mattress and rotating sides to off load off the decubitus ulcer. 5. Venous ulcers. The case been discussed Dr. Jacobsen who has taken care of the patient before. He recommended Xeroform dressings and Tubigrip stocking or Coban. The patient could be transferred to rehabilitation to continue IV ampicillin. End of treatment would be June 01.
[2018-05-06] MEDS: HumaLOG INSULIN (NovoLOG) PER UNIT SC SCH ×4 (09:58→20:44)
[2018-05-06] MEDS: LEVEMIR (INSULIN DETEMIR) 1 UNITS/0.01ML SC SCH ×2 (10:00→20:46)
[2018-05-06] MEDS: SUCRALFATE SUSP 1GM/10ML UD PO SCH ×5 (10:02→20:44)
[2018-05-06] MEDS: LIDOCAINE 5% (LIDODERM) PATCH TD SCH (10:02)
[2018-05-06] MEDS: FERROUS SULFATE 325MG TAB PO SCH ×2 (10:02→20:45)
[2018-05-06] MEDS: FEBUXOSTAT 40 MG TABLET (ULORIC) PO SCH (10:03)
[2018-05-06] MEDS: ASPIRIN 81 MG ENTERIC TAB PO SCH (10:03)
[2018-05-06] MEDS: PANTOPRAZOLE 40MG TAB (PROTONIX) PO SCH (10:03)
[2018-05-06] MEDS: CARVedilol 12.5 MG TAB PO SCH ×2 (10:05→20:46)
[2018-05-06] MEDS: POTASSIUM CHLORIDE 10 MEQ SR TABLET PO SCH ×2 (10:05→20:45)
[2018-05-06] MEDS: APIXABAN 2.5 MG TAB (ELIQUIS) PO SCH ×2 (10:05→20:45)
[2018-05-06] MEDS: ATORVASTATIN 20 MG TAB PO SCH (10:06)
[2018-05-06] MEDS: TORSEMIDE 20 MG TAB PO SCH (10:07)
[2018-05-06] MEDS: MULTIVITAMINS/MINERALS THERAP 1 TAB PO SCH (10:08)
[2018-05-06] MEDS: ISOSORBIDE DIN. (ISORDIL) 30 MG TAB PO SCH ×3 (10:08→22:11)
[2018-05-06] MEDS: NYSTATIN 100,000 UNITS/GM TOPICAL PWD 15 GM TOP SCH ×2 (10:09→20:49)
[2018-05-06] MEDS: AQUAPHOR **100GM** OINT TOP SCH (10:10)
[2018-05-06] MEDS: LIDOCAINE 5% OINT 30 GM TOP SCH (10:10)
[2018-05-06] MEDS: ENTRESTO 24-26MG TABLET (SACUBITRIL/VALSARTAN) PO SCH ×2 (10:15→20:45)
[2018-05-06 13:57] LABS: HEMATOCRIT 26.9 % (42.0-52.0); HEMOGLOBIN 8.2 g/dl (13.5-17.5)
--- NOTE | 2018-05-06 14:31 | IPNPDOC ---
Text Note Date of Service The patient was seen on 05/06/18. NOTE Patient seen and examined continues to report back pain. Denies any chest pain, pressure or discomfort. Denies any shortness of breath. anemia on lab, transfusion ordered PHYSICAL EXAMINATION: GENERAL: Patient in no acute distress in bed. HEENT: Moist mucous membranes. Neck supple. No jugular venous distention. CARDIAC: Regular S1, S2. PULMONARY: Diminished breath sounds. Mild crackles bilateral base. ABDOMEN: Soft, non-tender. Back: stage 2 sacral decub ulcer EXTREMITIES: Trace to 1+ edema bilateral lower extremities. DT/PT pulses intact. ASSESSMENT AND PLAN: This is a 72-year-old male patient with underlying medical history of atrial fibrillation diastolic and systolic congestive heart failure with ejection fraction 35%-40%, coronary artery disease, hypertension, diabetes mellitus, chronic kidney disease stage 3, gout, lumbar degenerative disc disease, spinal stenosis, radiculopathy, history of colon cancer, history of skin cancer, mitral insufficiency, iron deficiency anemia, dyslipidemia presented with generalized weakness and diarrhea initially was found to have enterococcus faecalis bacteremia. PROBLEMS: 1. Acute on chronic renal insufficiency. Baseline chronic kidney disease stage 3 likely secondary to gentamicin, Entresto and bacteremia. Appreciate nephrology input. Continue to monitor, returned to baseline. Avoid nephrotoxic agent. 2. Acute on chronic systolic and diastolic congestive heart failure. Patient currently on Torsemide dose adjusted, off dobutamine drip. Entresto increased by Dr. Andrew. Monitor blood pressure. Continue Eliquis, statin, Coreg, Isordil. Monitor blood pressure. Further recommendation as per Dr. Andrew. 3. Enterococcus faecalis bacteremia. Possible source Discitis, colitis versus chronic cholecystitis. Rule out endocarditis. Appreciate consultation from Dr. Vang. con't ampicillin as per Dr. Palumbo. rocephin stopped after 1 week by ID. f/u CRP ,ESR LAUREANO was negative for vegetation. Bone scan was negative. Repeat echo appreciated. Ampicillin for 6 week total 4. Chronic back pain. CT of the spine has been appreciated. Continue current pain medication. CT of the thoracic and lumbar spine appreciated. Pain management consultation and orthopedic consultation has been called in. Further recommendation as per orthopedics and pain management. Patient is a poor surgical candidate. 5. Chronic anemia likely secondary to anemia of chronic disease. Discuss with nephrology. Patient was transfused. 6. Chronic atrial fibrillation. On Eliquis. Continue beta blockers. 7. Diabetes mellitus. Continue basal bolus insulin. Adjust as needed. 8. Diarrhea. Resolved. 9. Coronary artery disease. Continue aspirin, beta blockers, Statin, Entresto. Diuresis with torsemide. Continue Isordil. Further recommendation per cardiology. Supportive care at this time. 10. Severe deconditioning. Supportive care. Continue physical therapy. 11. Infiltrate on chest x-ray. Negative CT for infiltrative. Supportive care. Continue to monitor. 12. Deep vein thrombosis prophylaxis. Patient on Eliquis. DISPOSITION: Multiple medical problems. Poor terminologist prognosis. Severe deconditioning. Encourage oral intake. Likely disposition short term rehabilitation in the near future. VS,Fishbone, I+O VS, Fishbone, I+O Laboratory Tests 05/06/18 05:22 Red Blood Count 2.98 L, Mean Corpuscular Volume 80.2, Mean Corpuscular Hemoglobin 23.8 L, Mean Corpuscular Hemoglobin Concent 29.7 L, Red Cell Distribution Width 17.3 H, Calcium Level 7.8 L 05/06/18 13:37 Vital Signs Date Time Temp Pulse Resp B/P (MAP) Pulse Ox O2 Delivery O2 Flow Rate FiO2 05/06/18 13:42 16 Nasal Cannula 2.0 05/06/18 11:58 92 05/06/18 11:52 98.8 80 142/81 (101) I&O- Last 24 Hours up to 6 AM 05/06/18 06:00 Intake Total 480 ml Output Total 0 ml Balance 480 ml DARY LUNDBERG MD May 06, 2018 14:31
[2018-05-06] MEDS: SODIUM CHLORIDE 0.9% INJ 10 ML SYR IV PRN (18:11)
[2018-05-06] MEDS: **NOTE PATIENT COMMENT** MISC XX SCH (20:48)
[2018-05-07] MEDS: IPRATROPIUM 0.5MG/ALBUTEROL 2.5MG INH SOL UD 3ML (DUONEB)(J7620) NEB SCH ×5 (03:32→20:07)
[2018-05-07 04:00] VITALS: BP 130/68
[2018-05-07] MEDS: traMADol 50 MG TAB PO SCH ×3 (05:01→21:20)
[2018-05-07] MEDS: SODIUM CHLORIDE 0.9% INJ 10 ML SYR IV SCH ×3 (05:01→18:45)
[2018-05-07] MEDS: AMPICILLIN SOD 2 GM in D5W MINI-BAG PLUS 100 ML IV SCH ×3 (05:01→18:06)
[2018-05-07 05:17] LABS: HEMATOCRIT 25.3 % (42.0-52.0); HEMOGLOBIN 7.5 g/dl (13.5-17.5); MEAN CORPUSCULAR HEMOGLOBIN 24.6 pg (27.0-33.0); MEAN CORPUSCULAR HGB CONC 29.6 g/dl (32.0-36.5); PLATELET COUNT, AUTOMATED 110 10^3/uL (150-450); RED BLOOD COUNT 3.05 10^6/uL (4.30-6.10); WHITE BLOOD COUNT 5.1 10^3/uL (4.0-10.0)
[2018-05-07 05:43] LABS: C REACTIVE PROTEIN QUANTITATIV 3.26 MG/DL (0.00-0.30); CALCIUM LEVEL 7.7 MG/DL (8.8-10.2); CREATININE FOR GFR 1.55 MG/DL (0.70-1.30); MAGNESIUM LEVEL 1.9 MG/DL (1.8-2.4); POTASSIUM SERUM 4.4 MEQ/L (3.5-5.1)
[2018-05-07] MEDS: HumaLOG INSULIN (NovoLOG) PER UNIT SC SCH ×4 (07:30→21:00)
[2018-05-07 07:52] VITALS: BP 127/79
[2018-05-07] MEDS: SUCRALFATE SUSP 1GM/10ML UD PO SCH ×4 (08:02→21:18)
[2018-05-07] MEDS: FEBUXOSTAT 40 MG TABLET (ULORIC) PO SCH (08:05)
[2018-05-07] MEDS: ENTRESTO 24-26MG TABLET (SACUBITRIL/VALSARTAN) PO SCH ×2 (08:08→21:19)
[2018-05-07] MEDS: POTASSIUM CHLORIDE 10 MEQ SR TABLET PO SCH ×2 (08:09→21:19)
[2018-05-07] MEDS: SENOKOT S TAB PO SCH ×2 (08:10→21:19)
[2018-05-07] MEDS: MULTIVITAMINS/MINERALS THERAP 1 TAB PO SCH (08:16)
[2018-05-07] MEDS: TORSEMIDE 20 MG TAB PO SCH (08:16)
[2018-05-07] MEDS: CARVedilol 12.5 MG TAB PO SCH ×2 (08:17→21:20)
[2018-05-07] MEDS: ATORVASTATIN 20 MG TAB PO SCH (08:18)
[2018-05-07] MEDS: ASCORBIC ACID 500 MG TAB PO SCH ×2 (08:19→21:20)
[2018-05-07] MEDS: ISOSORBIDE DIN. (ISORDIL) 30 MG TAB PO SCH ×3 (08:19→21:19)
[2018-05-07] MEDS: FERROUS SULFATE 325MG TAB PO SCH ×2 (08:20→21:21)
[2018-05-07] MEDS: APIXABAN 2.5 MG TAB (ELIQUIS) PO SCH ×2 (08:20→21:20)
[2018-05-07] MEDS: ASPIRIN 81 MG ENTERIC TAB PO SCH (08:20)
[2018-05-07] MEDS: PANTOPRAZOLE 40MG TAB (PROTONIX) PO SCH (08:20)
[2018-05-07] MEDS: AQUAPHOR **100GM** OINT TOP SCH (08:21)
[2018-05-07] MEDS: LIDOCAINE 5% (LIDODERM) PATCH TD SCH (08:21)
[2018-05-07] MEDS: NYSTATIN 100,000 UNITS/GM TOPICAL PWD 15 GM TOP SCH ×2 (08:22→21:22)
[2018-05-07] MEDS: LEVEMIR (INSULIN DETEMIR) 1 UNITS/0.01ML SC SCH ×2 (08:50→21:22)
[2018-05-07 11:42] VITALS: BP 164/83
[2018-05-07] MEDS: LIDOCAINE 5% OINT 30 GM TOP SCH (13:34)
[2018-05-07 14:14] LABS: HEMATOCRIT 28.7 % (42.0-52.0); HEMOGLOBIN 8.7 g/dl (13.5-17.5)
--- NOTE | 2018-05-07 15:34 | IPNPDOC ---
Text Note Date of Service The patient was seen on 05/07/18. NOTE Patient seen and examined continues to report back pain. Denies any chest pain, pressure or discomfort. Denies any shortness of breath. anemia on lab, transfusion ordered again. no bleeding reported. no melena, diarrhea, n/v/abd pain. PHYSICAL EXAMINATION: GENERAL: Patient in no acute distress in bed. HEENT: Moist mucous membranes. Neck supple. No jugular venous distention. CARDIAC: Regular S1, S2. PULMONARY: Diminished breath sounds. Mild crackles bilateral base. ABDOMEN: Soft, non-tender. Back: stage 2 sacral decub ulcer EXTREMITIES: Trace to 1+ edema bilateral lower extremities. DT/PT pulses intact. ASSESSMENT AND PLAN: This is a 72-year-old male patient with underlying medical history of atrial fibrillation diastolic and systolic congestive heart failure with ejection fraction 35%-40%, coronary artery disease, hypertension, diabetes mellitus, chronic kidney disease stage 3, gout, lumbar degenerative disc disease, spinal stenosis, radiculopathy, history of colon cancer, history of skin cancer, mitral insufficiency, iron deficiency anemia, dyslipidemia presented with generalized weakness and diarrhea initially was found to have enterococcus faecalis bacteremia. PROBLEMS: 1. Enterococcus faecalis bacteremia. Possible source Discitis, colitis versus chronic cholecystitis. Rule out endocarditis. Appreciate consultation from Dr. Vang. con't ampicillin as per Dr. Palumbo. rocephin stopped after 1 week by ID. f/u CRP ,ESR LAUREANO was negative for vegetation. Bone scan was negative. Repeat echo appreciated. Ampicillin for 6 week total 2. Acute on chronic systolic and diastolic congestive heart failure. Patient currently on Torsemide dose adjusted, off dobutamine drip. Entresto per Dr. Andrew. Monitor blood pressure. Continue Eliquis, statin, Coreg, Isordil. Monitor blood pressure. Further recommendation as per Dr. Andrew. 3. Acute on chronic renal insufficiency. Baseline chronic kidney disease stage 3 likely secondary to gentamicin, Entresto and bacteremia. Appreciate nephrology input. Continue to monitor, returned to baseline. Avoid nephrotoxic agent. 4. Chronic back pain. CT of the spine has been appreciated. discitis vs DDD/ spinal stenosis. Continue current pain medication. CT of the thoracic and lumbar spine appreciated. Pain management consultation and orthopedic consultation has been called in. Further recommendation as per orthopedics and pain management. con't antibiotics. Patient is a poor surgical candidate. 5. Chronic anemia likely secondary to anemia of chronic disease. Discuss with nephrology. Patient was transfused. iron, vitamin c 6. Chronic atrial fibrillation. On Eliquis. Continue beta blockers. 7. Diabetes mellitus. Continue basal bolus insulin. Adjust as needed. 8. Diarrhea. Resolved. 9. Coronary artery disease. Continue aspirin, beta blockers, Statin, Entresto. Diuresis with torsemide. Continue Isordil. Further recommendation per cardiology. Supportive care at this time. 10. Severe deconditioning. Supportive care. Continue physical therapy. 11. Infiltrate on chest x-ray. Negative CT for infiltrative. Supportive care. Continue to monitor. 12. Deep vein thrombosis prophylaxis. Patient on Eliquis. DISPOSITION: Multiple medical problems. 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 Severe deconditioning. Encourage oral intake. Likely disposition short term rehabilitation in the near future. VS,Fishbone, I+O VS, Fishbone, I+O Laboratory Tests 05/07/18 04:54 Red Blood Count 3.05 L, Mean Corpuscular Volume 83.0, Mean Corpuscular Hemoglobin 24.6 L, Mean Corpuscular Hemoglobin Concent 29.6 L, Red Cell Distribution Width 17.2 H, Calcium Level 7.7 L 05/07/18 14:02 Vital Signs Date Time Temp Pulse Resp B/P (MAP) Pulse Ox O2 Delivery O2 Flow Rate FiO2 05/07/18 13:47 16 05/07/18 12:00 2.0 05/07/18 11:42 98.0 68 164/83 (110) 98 Nasal Cannula I&O- Last 24 Hours up to 6 AM 05/07/18 05:59 Intake Total 1550 ml Output Total 0 ml Balance 1550 ml DARY LUNDBERG MD May 07, 2018 15:34
[2018-05-07 15:40] VITALS: BP 138/76
[2018-05-07] MEDS: ACETAMINOPHEN TAB 650MG DOSE (2X325MG) PO PRN (17:10)
[2018-05-07 20:00] VITALS: BP 154/70
[2018-05-07] MEDS: **NOTE PATIENT COMMENT** MISC XX SCH (21:00)
[2018-05-07 23:59] VITALS: BP 153/73
[2018-05-08] MEDS: AMPICILLIN SOD 2 GM in D5W MINI-BAG PLUS 100 ML IV SCH ×5 (00:18→23:21)
[2018-05-08] MEDS: ACETAMINOPHEN TAB 650MG DOSE (2X325MG) PO PRN (03:59)
[2018-05-08 04:00] VITALS: BP 142/67
[2018-05-08 05:12] LABS: HEMATOCRIT 26.8 % (42.0-52.0); MEAN CORPUSCULAR HEMOGLOBIN 24.8 pg (27.0-33.0); MEAN CORPUSCULAR HGB CONC 29.9 g/dl (32.0-36.5); MEAN CORPUSCULAR VOLUME 83.2 fl (80.0-96.0); PLATELET COUNT, AUTOMATED 116 10^3/uL (150-450); RED BLOOD COUNT 3.22 10^6/uL (4.30-6.10); WHITE BLOOD COUNT 5.1 10^3/uL (4.0-10.0)
[2018-05-08 05:29] LABS: ERYTHROCYTE SEDIMENTATION RATE 63 mm/hr (0-20)
[2018-05-08 05:49] LABS: C REACTIVE PROTEIN QUANTITATIV 2.67 MG/DL (0.00-0.30); CALCIUM LEVEL 7.8 MG/DL (8.8-10.2); CREATININE FOR GFR 1.58 MG/DL (0.70-1.30)
[2018-05-08] MEDS: traMADol 50 MG TAB PO SCH ×3 (05:49→21:26)
[2018-05-08] MEDS: IPRATROPIUM 0.5MG/ALBUTEROL 2.5MG INH SOL UD 3ML (DUONEB)(J7620) NEB SCH ×5 (07:05→20:20)
[2018-05-08] MEDS: HumaLOG INSULIN (NovoLOG) PER UNIT SC SCH ×4 (07:30→21:00)
[2018-05-08 08:00] VITALS: BP 160/80
[2018-05-08] MEDS ORDERED: FLEET OIL RETENTION ENEMA PR PRN (08:30)
[2018-05-08] MEDS: LIDOCAINE 5% (LIDODERM) PATCH TD SCH (09:00)
[2018-05-08] MEDS: NYSTATIN 100,000 UNITS/GM TOPICAL PWD 15 GM TOP SCH ×2 (09:00→21:00)
[2018-05-08] MEDS: PANTOPRAZOLE 40MG INJ (PROTONIX) (C9113) IV SCH ×2 (10:14→21:23)
[2018-05-08] MEDS: LEVEMIR (INSULIN DETEMIR) 1 UNITS/0.01ML SC SCH ×2 (10:14→21:30)
[2018-05-08] MEDS: SUCRALFATE SUSP 1GM/10ML UD PO SCH ×4 (10:14→21:24)
[2018-05-08] MEDS: CARVedilol 12.5 MG TAB PO SCH ×2 (10:15→21:25)
[2018-05-08] MEDS: MIRALAX *UNIT DOSE* 17GM PACKET PO SCH ×2 (10:15→21:27)
[2018-05-08] MEDS: ENTRESTO 24-26MG TABLET (SACUBITRIL/VALSARTAN) PO SCH ×2 (10:15→21:26)
[2018-05-08] MEDS: MULTIVITAMINS/MINERALS THERAP 1 TAB PO SCH (10:15)
[2018-05-08] MEDS: TORSEMIDE 20 MG TAB PO SCH (10:16)
[2018-05-08] MEDS: ATORVASTATIN 20 MG TAB PO SCH (10:16)
[2018-05-08] MEDS: FERROUS SULFATE 325MG TAB PO SCH ×2 (10:16→21:27)
[2018-05-08] MEDS: SENOKOT S TAB PO SCH ×2 (10:16→21:26)
[2018-05-08] MEDS: CALCITRIOL 0.25 MCG CAP (S0169) PO SCH (10:16)
[2018-05-08] MEDS: FEBUXOSTAT 40 MG TABLET (ULORIC) PO SCH (10:17)
[2018-05-08] MEDS: POTASSIUM CHLORIDE 10 MEQ SR TABLET PO SCH ×2 (10:17→21:27)
[2018-05-08] MEDS: ISOSORBIDE DIN. (ISORDIL) 30 MG TAB PO SCH ×3 (10:17→21:25)
[2018-05-08] MEDS: ASCORBIC ACID 500 MG TAB PO SCH ×2 (10:18→21:25)
[2018-05-08] MEDS: SODIUM CHLORIDE 0.9% INJ 10 ML SYR IV PRN ×4 (10:19→17:37)
[2018-05-08] MEDS: ASPIRIN 81 MG ENTERIC TAB PO SCH (10:23)
[2018-05-08 12:00] VITALS: BP 140/80
[2018-05-08] MEDS ORDERED: BISACODYL ENEMA 10 MG/30 ML PR ONE (13:00)
[2018-05-08] MEDS: LIDOCAINE 5% OINT 30 GM TOP SCH (13:07)
[2018-05-08 14:10] LABS: HEMATOCRIT 26.6 % (42.0-52.0); HEMOGLOBIN 8.1 g/dl (13.5-17.5)
[2018-05-08 16:00] VITALS: BP 140/70
[2018-05-08] MEDS: SODIUM CHLORIDE 0.9% INJ 10 ML SYR IV SCH (18:00)
[2018-05-08] MEDS ORDERED: FUROSEMIDE 40 MG/4 ML VIAL (J1940) IV ONE (18:30)
--- NOTE | 2018-05-08 18:34 | IPNPDOC ---
Text Note Date of Service The patient was seen on 05/08/18. NOTE Patient seen and examined continues to report back pain. Denies any chest pain, pressure or discomfort. Denies any shortness of breath. anemia on lab, transfusion ordered again. rectal done, FOBT + dark stool. n/v/abd pain. PHYSICAL EXAMINATION: GENERAL: Patient in no acute distress in bed. HEENT: Moist mucous membranes. Neck supple. No jugular venous distention. CARDIAC: Regular S1, S2. PULMONARY: Diminished breath sounds. Mild crackles bilateral base. ABDOMEN: Soft, non-tender., rectal FOBT + dark stool Back: stage 2 sacral decub ulcer EXTREMITIES: Trace to 1+ edema bilateral lower extremities. DT/PT pulses intact. ASSESSMENT AND PLAN: This is a 72-year-old male patient with underlying medical history of atrial fibrillation diastolic and systolic congestive heart failure with ejection fraction 35%-40%, coronary artery disease, hypertension, diabetes mellitus, chronic kidney disease stage 3, gout, lumbar degenerative disc disease, spinal stenosis, radiculopathy, history of colon cancer, history of skin cancer, mitral insufficiency, iron deficiency anemia, dyslipidemia presented with generalized weakness and diarrhea initially was found to have enterococcus faecalis bacteremia. PROBLEMS: 1. Enterococcus faecalis bacteremia. Possible source Discitis, colitis versus chronic cholecystitis. Rule out endocarditis. Appreciate consultation from Dr. aVng. con't ampicillin as per Dr. Palumbo. rocephin stopped after 1 week by ID. f/u CRP ,ESR LAUREANO was negative for vegetation. Bone scan was negative. Repeat echo appreciated. Ampicillin for 6 week total 2. Acute on chronic systolic and diastolic congestive heart failure. Patient currently on Torsemide dose adjusted, off dobutamine drip. Entresto per Dr. Andrew. Monitor blood pressure. Continue Eliquis, statin, Coreg, Isordil. Monitor blood pressure. Further recommendation as per Dr. Andrew. 3. Acute on chronic renal insufficiency. Baseline chronic kidney disease stage 3 likely secondary to gentamicin, Entresto and bacteremia. Appreciate nephrology input. Continue to monitor, returned to baseline. Avoid nephrotoxic agent. 4. acute blood loss anemia 2/2 GI lost with Chronic anemia likely secondary to anemia of chronic disease. Patient was transfused. iron, vitamin c, Protonix IV BID, Gi consulted Dr Millard, Clear diet. NPO for scope, serial HH, d/w Dr Kamran Cho on hold con't asa 5. Chronic back pain. CT of the spine has been appreciated. discitis vs DDD/ spinal stenosis. Continue current pain medication. CT of the thoracic and lumbar spine appreciated. Pain management consultation and orthopedic consultation has been called in. Further recommendation as per orthopedics and pain management. con't antibiotics. Patient is a poor surgical candidate. 6. Chronic atrial fibrillation. hold Eliquis give acute GI bleed. Continue beta blockers. 7. Diabetes mellitus. Continue basal bolus insulin. Adjust as needed. 8. Diarrhea. Resolved. 9. Coronary artery disease. Continue aspirin, beta blockers, Statin, Entresto. Diuresis with torsemide. Continue Isordil. Further recommendation per cardiology. Supportive care at this time. 10. Severe deconditioning. Supportive care. Continue physical therapy. 11. Deep vein thrombosis prophylaxis teds scq, Tammie stopped given GI bleed DISPOSITION: Multiple medical problems. Poor half-way prognosis. Severe deconditioning. Encourage oral intake. Likely disposition short term rehabilitation in the near future. Gi for GI bleed VS,Walt, I+O VS, Walt, I+O Laboratory Tests 05/08/18 04:56 Red Blood Count 3.22 L, Mean Corpuscular Volume 83.2, Mean Corpuscular Hemoglobin 24.8 L, Mean Corpuscular Hemoglobin Concent 29.9 L, Red Cell Distribution Width 16.9 H, Calcium Level 7.8 L 05/08/18 13:53 Vital Signs Date Time Temp Pulse Resp B/P (MAP) Pulse Ox O2 Delivery O2 Flow Rate FiO2 05/08/18 17:04 140/70 05/08/18 16:00 96.6 72 20 94 Nasal Cannula 2.0 I&O- Last 24 Hours up to 6 AM 05/08/18 06:00 Intake Total 1153 ml Output Total 650 ml Balance 503 ml DARY LUNDBERG MD May 08, 2018 18:34
[2018-05-08 20:00] VITALS: BP 168/74
[2018-05-08] MEDS: **NOTE PATIENT COMMENT** MISC XX SCH (21:00)
[2018-05-09] VITALS: BP 156/68
[2018-05-09 00:19] LABS: HEMATOCRIT 30.9 % (42.0-52.0); HEMOGLOBIN 9.6 g/dl (13.5-17.5)
[2018-05-09] MEDS: IPRATROPIUM 0.5MG/ALBUTEROL 2.5MG INH SOL UD 3ML (DUONEB)(J7620) NEB SCH ×6 (04:00→20:30)
[2018-05-09 04:45] VITALS: BP 158/82
[2018-05-09] MEDS: AMPICILLIN SOD 2 GM in D5W MINI-BAG PLUS 100 ML IV SCH ×4 (05:18→23:54)
[2018-05-09] MEDS: traMADol 50 MG TAB PO SCH ×3 (05:19→21:01)
[2018-05-09] MEDS: SODIUM CHLORIDE 0.9% INJ 10 ML SYR IV SCH ×2 (05:20→17:30)
[2018-05-09 05:46] LABS: HEMATOCRIT 31.3 % (42.0-52.0); HEMOGLOBIN 9.5 g/dl (13.5-17.5); MEAN CORPUSCULAR HEMOGLOBIN 25.4 pg (27.0-33.0); MEAN CORPUSCULAR HGB CONC 30.4 g/dl (32.0-36.5); MEAN CORPUSCULAR VOLUME 83.7 fl (80.0-96.0); PLATELET COUNT, AUTOMATED 151 10^3/uL (150-450); RED BLOOD COUNT 3.74 10^6/uL (4.30-6.10); WHITE BLOOD COUNT 7.6 10^3/uL (4.0-10.0)
[2018-05-09 06:06] LABS: CALCIUM LEVEL 7.9 MG/DL (8.8-10.2); CREATININE FOR GFR 1.6 MG/DL (0.70-1.30); GLOMERULAR FILTRATION RATE 45.3 (>42); POTASSIUM SERUM 4.7 MEQ/L (3.5-5.1)
[2018-05-09 07:28] VITALS: BP 163/78
[2018-05-09] MEDS: HumaLOG INSULIN (NovoLOG) PER UNIT SC SCH ×4 (07:30→20:40)
[2018-05-09] MEDS: SUCRALFATE SUSP 1GM/10ML UD PO SCH ×4 (07:30→20:37)
[2018-05-09 07:40] LABS: C REACTIVE PROTEIN QUANTITATIV 2.59 MG/DL (0.00-0.30)
--- NOTE | 2018-05-09 08:27 | CR ---
DATE OF CONSULTATION: 05/08/2018 This is a 72-year-old white male who is admitted to [facility] on 04/14/2018. The patient has multiple medical problems including chronic atrial fibrillation, diastolic and systolic congestive heart failure (CHF) with ejection fraction of 35-40%, coronary artery disease, hypertension, diabetes mellitus, chronic kidney disease stage III, gout, lumbar degenerative disc disease with stenosis, previous history of colon cancer, history of skin cancer, mitral valve calcification insufficiency, history of iron-deficiency anemia, hyperlipidemia. The patient was admitted for progressive weakness. The patient also at that time had problems with diarrhea felt to be secondary to gallbladder disease. The patient has been seen by GI due to chronic anemia. The patient was admitted with a hemoglobin of 9.6 and 32.1 with MCV of 78.7. The patient's INR on admission was 1.49. The patient's chemistry was essentially normal and creatinine was 1.58. The patient's imaging studies on admission included abdominal CT 04/14/2018 which showed mural thickening distal to the left colon anastomosis in the rectosigmoid and rectum. No obstructive lesions seen. The patient apparently had a colonoscopy 9 months ago and had a perforation requiring emergency resection. Repeat CT scan on 04/23/2018 showed improved sigmoid colitis. No obvious acute anterior process was noted. The patient has gallstones in his gallbladder. No adenopathy of free air was seen. The patient's hematocrit over the hospital course has been slowly dropping. He has received 3 units of packed cells. The most recent hemoglobin on 05/06/2018 was 7.12 and 23.9. Today on 05/08, the patient's hemoglobin is 26.8. There are no signs of any active bleeding. No hematemesis. No melena. The patient apparently had some dark stools. It is unclear as to the source of patient's anemia. PAST MEDICAL HISTORY: As above. MEDICATIONS ON ADMISSION: - carvedilol - Isordil - atorvastatin - Eliquis 2.5 mg twice daily - torsemide - Protonix - ceftriaxone - ampicillin - calcium carbonate - iron - Levemir insulin - aspirin ALLERGIES: Apparently to OXYCODONE and SULFA ANTIBIOTICS. General: Well-developed white male who appears somewhat lethargic. Extremities show significant peripheral edema. Chest: Decreased breath sounds bilaterally. Cardiovascular exam showed a regular rhythm. Patient has systolic ejection murmur. Abdomen was soft, nontender. No masses, guarding, or rebound, hepatosplenomegaly. Bowel sounds are positive. ANALYSIS: Anemia of unknown etiology at present time. PLAN: Set the patient up with an EGD due to the dark stools. However, discussion with the patient for possible colonoscopy he has refused this, since 5 months ago he had a colonoscopy and sustained a perforation. Plan will be to set the patient up for EGD on Tuesday.
--- NOTE | 2018-05-09 08:49 | IPNPDOC ---
Text Note Date of Service The patient was seen on 05/09/18. NOTE Subjective: Patient seen and examined at bedside. No acute overnight events reported. Patient has no new medical complaints this morning. Objective: GENERAL: NAD, lying comfortably in bed HEENT: NC/AT, EOMI, MMM CARDIAC: +S1S2, RRR PULMONARY: Diminished breath sounds. Mild crackles bilateral base. ABDOMEN: soft, NT, +BS Back: stage 2 sacral decub ulcer EXTREMITIES: Trace to 1+ edema bilateral lower extremities. DT/PT pulses intact. ASSESSMENT AND PLAN: This is a 72-year-old male patient with underlying medical history of a-fib, CHF with diastolic and systolic dysfunction - EF 35%-40%, CAD, HTN, DM, CKD stage 3, gout, lumbar degenerative disc disease, spinal stenosis, radiculopathy, history of colon cancer, history of skin cancer, mitral insufficiency, iron deficiency anemia, dyslipidemia presented with generalized weakness and diarrhea initially was found to have enterococcus faecalis bacteremia. #Enterococcus faecalis bacteremia - Possible source Discitis, colitis versus chronic cholecystitis - ID c/s appreciated - con't ampicillin, rocephin stopped after 1 week, f/u CRP ,ESR - LAUREANO was negative for vegetation - Bone scan was negative - Repeat echo appreciated - Ampicillin for 6 week total #Acute on chronic systolic and diastolic congestive heart failure - off dobutamine drip - currently on Torsemide dose adjusted - Entresto; continue Eliquis, statin, Coreg, Isordil - follow as per cardiology - assistance appreciated #Acute on chronic kidney disease - Baseline CKD stage 3 - likely secondary to nephrotoxic medications - gentamicin, Entresto and bacteremia - appreciate nephrology input - continue to monitor, returned to baseline. Avoid nephrotoxic agent. #acute blood loss anemia - 2/2 GI loss with Chronic anemia likely secondary to anemia of chronic disease - Patient was transfused. iron, vitamin c, Protonix IV BID, GI consulted appr eciated - NPO for scope tomorrow, serial HH, d/w Dr Kamran Cho on hold con't asa # Chronic back pain - CT spine noted; discitis vs DDD/spinal stenosis - continue current pain regimen - CT L/T spine noted - follow as per pain management/ortho #Chronic atrial fibrillation - Eliquis on hold given GI bleed - BB # Diabetes mellitus. Continue basal bolus insulin. Adjust as needed. #Diarrhea. Resolved. # Coronary artery disease. Continue aspirin, beta blockers, Statin, Entresto. Diuresis with torsemide. Continue Isordil. Further recommendation per cardiology. Supportive care at this time. #Severe deconditioning. Supportive care. Continue physical therapy. # Deep vein thrombosis prophylaxis teds scq, Eliquis stopped given GI bleed DISPOSITION: EGD tomorrow; Multiple medical problems. Poor care home prognosis. Severe deconditioning. Encourage oral intake. Likely disposition STR in the near future. GI for GI bleed VS,Fishbone, I+O VS, Fishbone, I+O Laboratory Tests 05/08/18 13:53 05/09/18 00:10 05/09/18 05:23 Red Blood Count 3.74 L, Mean Corpuscular Volume 83.7, Mean Corpuscular Hemoglobin 25.4 L, Mean Corpuscular Hemoglobin Concent 30.4 L, Red Cell Distribution Width 16.8 H, Calcium Level 7.9 L Vital Signs Date Time Temp Pulse Resp B/P (MAP) Pulse Ox O2 Delivery O2 Flow Rate FiO2 05/09/18 07:28 98.6 86 18 163/78 (106) 97 Nasal Cannula 2.0 I&O- Last 24 Hours up to 6 AM 05/09/18 06:00 Intake Total 280 ml Output Total 775 ml Balance -495 ml RONALD VENCES MD May 09, 2018 08:49
[2018-05-09] MEDS: SENOKOT S TAB PO SCH ×2 (09:00→20:39)
[2018-05-09] MEDS: MIRALAX *UNIT DOSE* 17GM PACKET PO SCH ×2 (09:00→20:41)
[2018-05-09] MEDS: PANTOPRAZOLE 40MG INJ (PROTONIX) (C9113) IV SCH ×2 (09:15→20:38)
[2018-05-09] MEDS: LEVEMIR (INSULIN DETEMIR) 1 UNITS/0.01ML SC SCH ×2 (09:17→20:41)
[2018-05-09] MEDS: LIDOCAINE 5% OINT 30 GM TOP SCH (09:20)
[2018-05-09] MEDS: LIDOCAINE 5% (LIDODERM) PATCH TD SCH (09:20)
[2018-05-09] MEDS: NYSTATIN 100,000 UNITS/GM TOPICAL PWD 15 GM TOP SCH ×2 (09:20→20:37)
[2018-05-09] MEDS: ATORVASTATIN 20 MG TAB PO SCH (09:21)
[2018-05-09] MEDS: ASCORBIC ACID 500 MG TAB PO SCH ×2 (09:21→20:40)
[2018-05-09] MEDS: ENTRESTO 24-26MG TABLET (SACUBITRIL/VALSARTAN) PO SCH ×2 (09:21→20:40)
[2018-05-09] MEDS: FERROUS SULFATE 325MG TAB PO SCH ×2 (09:21→20:40)
[2018-05-09] MEDS: FEBUXOSTAT 40 MG TABLET (ULORIC) PO SCH (09:21)
[2018-05-09] MEDS: MULTIVITAMINS/MINERALS THERAP 1 TAB PO SCH (09:22)
[2018-05-09] MEDS: ISOSORBIDE DIN. (ISORDIL) 30 MG TAB PO SCH ×3 (09:22→20:39)
[2018-05-09] MEDS: CARVedilol 12.5 MG TAB PO SCH ×2 (09:22→20:39)
[2018-05-09] MEDS: TORSEMIDE 20 MG TAB PO SCH (09:23)
[2018-05-09] MEDS: ASPIRIN 81 MG ENTERIC TAB PO SCH (09:23)
[2018-05-09] MEDS: POTASSIUM CHLORIDE 10 MEQ SR TABLET PO SCH ×2 (09:23→20:40)
[2018-05-09 12:00] VITALS: BP 152/74
[2018-05-09 16:00] VITALS: BP 136/78
[2018-05-09] MEDS: **NOTE PATIENT COMMENT** MISC XX SCH (18:07)
[2018-05-09 19:55] VITALS: BP 158/68
[2018-05-09] MEDS: SODIUM CHLORIDE 0.9% INJ 10 ML SYR IV PRN (20:38)
[2018-05-10] MEDS: IPRATROPIUM 0.5MG/ALBUTEROL 2.5MG INH SOL UD 3ML (DUONEB)(J7620) NEB SCH ×6 (03:21→20:56)
[2018-05-10] MEDS: SODIUM CHLORIDE 0.9% INJ 10 ML SYR IV SCH ×2 (05:07→18:05)
[2018-05-10] MEDS: AMPICILLIN SOD 2 GM in D5W MINI-BAG PLUS 100 ML IV SCH ×4 (05:07→23:58)
[2018-05-10] MEDS: traMADol 50 MG TAB PO SCH ×3 (05:08→21:45)
[2018-05-10 05:27] LABS: HEMATOCRIT 29.9 % (42.0-52.0); HEMOGLOBIN 9.1 g/dl (13.5-17.5); MEAN CORPUSCULAR HEMOGLOBIN 25.9 pg (27.0-33.0); MEAN CORPUSCULAR HGB CONC 30.4 g/dl (32.0-36.5); MEAN CORPUSCULAR VOLUME 84.9 fl (80.0-96.0); PLATELET COUNT, AUTOMATED 152 10^3/uL (150-450); RED BLOOD COUNT 3.52 10^6/uL (4.30-6.10)
[2018-05-10 05:57] LABS: C REACTIVE PROTEIN QUANTITATIV 2.5 MG/DL (0.00-0.30); CALCIUM LEVEL 8.1 MG/DL (8.8-10.2); CREATININE FOR GFR 1.73 MG/DL (0.70-1.30); GLOMERULAR FILTRATION RATE 41.4 (>42); MAGNESIUM LEVEL 2.1 MG/DL (1.8-2.4); POTASSIUM SERUM 4.5 MEQ/L (3.5-5.1)
[2018-05-10] MEDS: SUCRALFATE SUSP 1GM/10ML UD PO SCH ×4 (07:31→21:46)
[2018-05-10] MEDS: HumaLOG INSULIN (NovoLOG) PER UNIT SC SCH ×4 (07:32→21:00)
[2018-05-10 08:00] VITALS: BP 150/82
[2018-05-10] MEDS: LEVEMIR (INSULIN DETEMIR) 1 UNITS/0.01ML SC SCH ×2 (09:00→21:00)
[2018-05-10] MEDS: LIDOCAINE 5% (LIDODERM) PATCH TD SCH (09:14)
[2018-05-10] MEDS: NYSTATIN 100,000 UNITS/GM TOPICAL PWD 15 GM TOP SCH ×2 (09:14→21:47)
[2018-05-10] MEDS: LIDOCAINE 5% OINT 30 GM TOP SCH (09:14)
[2018-05-10] MEDS: PANTOPRAZOLE 40MG INJ (PROTONIX) (C9113) IV SCH ×2 (09:15→21:47)
[2018-05-10 11:40] VITALS: BP 166/78
[2018-05-10] MEDS ORDERED: PROPOFOL 200 MG/20 ML VIAL As Ordered ONE (13:21)
[2018-05-10] MEDS ORDERED: LIDOCAINE 2% INJ 100 MG/5 ML SDV (FOR ANES.) As Ordered ONE (13:21)
--- NOTE | 2018-05-10 14:48 | IPNPDOC ---
Text Note Date of Service The patient was seen on 05/10/18. NOTE Subjective: Patient seen and examined at bedside. No acute overnight events reported. Patient has no new medical complaints this morning. Objective: GENERAL: NAD, lying comfortably in bed HEENT: NC/AT, EOMI, MMM CARDIAC: +S1S2, RRR PULMONARY: Diminished breath sounds. Mild crackles bilateral base. ABDOMEN: soft, NT, +BS Back: stage 2 sacral decub ulcer EXTREMITIES: Trace to 1+ edema bilateral lower extremities. DT/PT pulses intact. ASSESSMENT AND PLAN: This is a 72-year-old male patient with underlying medical history of a-fib, CHF with diastolic and systolic dysfunction - EF 35%-40%, CAD, HTN, DM, CKD stage 3, gout, lumbar degenerative disc disease, spinal stenosis, radiculopathy, history of colon cancer, history of skin cancer, mitral insufficiency, iron deficiency anemia, dyslipidemia presented with generalized weakness and diarrhea initially was found to have enterococcus faecalis bacteremia. #Enterococcus faecalis bacteremia - Possible source Discitis, colitis versus chronic cholecystitis - ID c/s appreciated - con't ampicillin, rocephin stopped after 1 week, f/u CRP ,ESR - LAUREANO was negative for vegetation - Bone scan was negative - Repeat echo appreciated - Ampicillin for 6 week total #Acute on chronic systolic and diastolic congestive heart failure - off dobutamine drip - currently on Torsemide dose adjusted - Entresto; continue Eliquis, statin, Coreg, Isordil - follow as per cardiology - assistance appreciated #Acute on chronic kidney disease - Baseline CKD stage 3 - likely secondary to nephrotoxic medications - gentamicin, Entresto and bacteremia - appreciate nephrology input - continue to monitor, returned to baseline. Avoid nephrotoxic agent. #acute blood loss anemia - 2/2 GI loss with Chronic anemia likely secondary to anemia of chronic disease - Patient was transfused. iron, vitamin c, Protonix IV BID, GI consulted appr eciated - EGD today, serial HH, d/w Dr Kamran Cho on hold con't asa # Chronic back pain - CT spine noted; discitis vs DDD/spinal stenosis - continue current pain regimen - CT L/T spine noted - follow as per pain management/ortho #Chronic atrial fibrillation - Eliquis on hold given GI bleed - BB # Diabetes mellitus. Continue basal bolus insulin. Adjust as needed. #Diarrhea. Resolved. # Coronary artery disease. Continue aspirin, beta blockers, Statin, Entresto. Diuresis with torsemide. Continue Isordil. Further recommendation per cardiology. Supportive care at this time. #Severe deconditioning. Supportive care. Continue physical therapy. # Deep vein thrombosis prophylaxis teds scq, Eliquis stopped given GI bleed DISPOSITION: EGD tomorrow; Multiple medical problems. Poor group home prognosis. Severe deconditioning. Encourage oral intake. Likely disposition STR in the near future. GI for GI bleed VS,Fishbone, I+O VS, Fishbone, I+O Laboratory Tests 05/10/18 05:06 Red Blood Count 3.52 L, Mean Corpuscular Volume 84.9, Mean Corpuscular Hemoglobin 25.9 L, Mean Corpuscular Hemoglobin Concent 30.4 L, Red Cell Distribution Width 17.3 H, Calcium Level 8.1 L Vital Signs Date Time Temp Pulse Resp B/P (MAP) Pulse Ox O2 Delivery O2 Flow Rate FiO2 05/10/18 12:19 2.0 05/10/18 11:40 98.4 114 18 166/78 (107) 91 Nasal Cannula I&O- Last 24 Hours up to 6 AM 05/10/18 06:00 Intake Total 800 ml Output Total 680 ml Balance 120 ml RONALD VENCES MD May 10, 2018 14:48
[2018-05-10] MEDS: TORSEMIDE 20 MG TAB PO SCH (14:54)
[2018-05-10] MEDS: ASCORBIC ACID 500 MG TAB PO SCH ×2 (14:55→21:45)
[2018-05-10] MEDS: CARVedilol 12.5 MG TAB PO SCH ×2 (14:55→21:44)
[2018-05-10] MEDS: ATORVASTATIN 20 MG TAB PO SCH (14:55)
[2018-05-10] MEDS: ENTRESTO 24-26MG TABLET (SACUBITRIL/VALSARTAN) PO SCH ×2 (14:55→21:43)
[2018-05-10] MEDS: CALCITRIOL 0.25 MCG CAP (S0169) PO SCH (14:56)
[2018-05-10] MEDS: FEBUXOSTAT 40 MG TABLET (ULORIC) PO SCH (14:56)
[2018-05-10] MEDS: ISOSORBIDE DIN. (ISORDIL) 30 MG TAB PO SCH ×3 (14:56→21:44)
[2018-05-10] MEDS: MULTIVITAMINS/MINERALS THERAP 1 TAB PO SCH (14:56)
[2018-05-10] MEDS: POTASSIUM CHLORIDE 10 MEQ SR TABLET PO SCH ×2 (14:57→21:44)
[2018-05-10] MEDS: ASPIRIN 81 MG ENTERIC TAB PO SCH (14:57)
[2018-05-10] MEDS: MIRALAX *UNIT DOSE* 17GM PACKET PO SCH ×2 (14:58→21:00)
[2018-05-10] MEDS: SENOKOT S TAB PO SCH ×2 (14:58→21:43)
[2018-05-10] MEDS: FERROUS SULFATE 325MG TAB PO SCH ×2 (14:58→21:44)
[2018-05-10 15:58] VITALS: BP 133/93
[2018-05-10 16:20] VITALS: BP 136/86
[2018-05-10 20:00] VITALS: BP 95/58
--- NOTE | 2018-05-10 20:32 | IPN ---
DATE: 05/09/2018 Mr. Dixon seems to be doing a little better. He is scheduled to have endoscopy done by Dr. Millard for anemia and black stools. He denies any nausea, vomiting or diarrhea. His back pain is a little bit better. He has been getting out of bed into a chair but not walking. His back pain is stable. LABORATORY DATA: White count is 7.6, hemoglobin 9.5, hematocrit 31.3, platelets 151. Erythrocyte sedimentation rate (ESR) 63. Sodium 146, potassium 4.7, chloride 110, bicarbonate 29, BUN 39, creatinine 1.6, glucose 132, calcium 7.9, magnesium 2, C-reactive protein (CRP) 2.59 down from 8.96. PHYSICAL EXAMINATION: HEART: Normal S1, S2 with a systolic ejection murmur 2/6. LUNGS: Lungs are clear. No wheezes, rales or rhonchi. ABDOMEN: Obese, soft, nontender. EXTREMITIES: No clubbing, cyanosis or edema. He has wraps where he has had venous ulcerations. SKIN: Skin is dry and scaly. IMPRESSION 1. Enterococcus faecalis bacteremia with severe back pain in the mid thoracic area possibility of discitis although not seen on x-ray. The patient continues on intravenous (IV) ampicillin tolerating well 2 grams every 6 hours. Will finish a course of 6 weeks. 2. Anemia with dark stools. The patient is scheduled for endoscopy. 3. Severe back pain. Seems to be better controlled with tramadol 50 mg every 8 hours. PLAN: Continue on IV ampicillin. The patient still is being considered for rehabilitation or snf placement to finish IV antibiotics and for rehabilitation.
[2018-05-10] MEDS: **NOTE PATIENT COMMENT** MISC XX SCH (21:00)
[2018-05-10] MEDS: SODIUM CHLORIDE 0.9% INJ 10 ML SYR IV PRN (21:48)
[2018-05-11] VITALS: BP 179/81
[2018-05-11] MEDS: IPRATROPIUM 0.5MG/ALBUTEROL 2.5MG INH SOL UD 3ML (DUONEB)(J7620) NEB SCH ×6 (03:45→19:12)
[2018-05-11 05:38] LABS: HEMATOCRIT 30.5 % (42.0-52.0); HEMOGLOBIN 9.3 g/dl (13.5-17.5); MEAN CORPUSCULAR HEMOGLOBIN 25.6 pg (27.0-33.0); MEAN CORPUSCULAR HGB CONC 30.5 g/dl (32.0-36.5); PLATELET COUNT, AUTOMATED 153 10^3/uL (150-450); RED BLOOD COUNT 3.63 10^6/uL (4.30-6.10); WHITE BLOOD COUNT 5.5 10^3/uL (4.0-10.0)
[2018-05-11] MEDS: traMADol 50 MG TAB PO SCH ×3 (05:42→21:24)
[2018-05-11] MEDS: AMPICILLIN SOD 2 GM in D5W MINI-BAG PLUS 100 ML IV SCH ×4 (05:42→23:50)
[2018-05-11] MEDS: SODIUM CHLORIDE 0.9% INJ 10 ML SYR IV SCH ×2 (05:43→18:27)
[2018-05-11 06:00] VITALS: BP 168/80
[2018-05-11 06:05] LABS: C REACTIVE PROTEIN QUANTITATIV 1.9 MG/DL (0.00-0.30); CALCIUM LEVEL 7.9 MG/DL (8.8-10.2); CREATININE FOR GFR 1.67 MG/DL (0.70-1.30); GLOMERULAR FILTRATION RATE 43.1 (>42); POTASSIUM SERUM 4.5 MEQ/L (3.5-5.1)
[2018-05-11] MEDS: HumaLOG INSULIN (NovoLOG) PER UNIT SC SCH ×4 (07:28→21:00)
[2018-05-11 08:00] VITALS: BP 162/60
--- NOTE | 2018-05-11 08:57 | IPNPDOC ---
Text Note Date of Service The patient was seen on 05/11/18. NOTE Subjective: Patient seen and examined at bedside. Still complains of back pain. He was unable to tolerate EGD yesterday due to back pain. Not interested in trying again. Objective: GENERAL: NAD, lying comfortably in bed HEENT: NC/AT, EOMI, MMM CARDIAC: +S1S2, irregular PULMONARY: Diminished breath sounds ABDOMEN: soft, NT, +BS Back: stage 2 sacral decub ulcer EXTREMITIES: Trace to 1+ edema bilateral lower extremities. DT/PT pulses intact. ASSESSMENT AND PLAN: This is a 72-year-old male patient with underlying medical history of a-fib, CHF with diastolic and systolic dysfunction - EF 35%-40%, CAD, HTN, DM, CKD stage 3, gout, lumbar degenerative disc disease, spinal stenosis, radiculopathy, history of colon cancer, history of skin cancer, mitral insufficiency, iron deficiency anemia, dyslipidemia presented with generalized weakness and diarrhea initially was found to have enterococcus faecalis bacteremia. #Enterococcus faecalis bacteremia - Possible source Discitis vs colitis vs chronic cholecystitis - ID c/s appreciated - con't IV ampicillin, rocephin stopped after 1 week, f/u CRP ,ESR - LAUREANO was negative for vegetation - Bone scan was negative - Repeat echo appreciated - IV Ampicillin for 6 week total #Acute on chronic systolic and diastolic congestive heart failure - off dobutamine drip - currently on Torsemide dose adjusted - Entresto; continue Eliquis, statin, Coreg, Isordil - follow as per cardiology - assistance appreciated #Acute on chronic kidney disease - Baseline CKD stage 3 - likely secondary to nephrotoxic medications - gentamicin, Entresto and bacteremia - appreciate nephrology input - continue to monitor, returned to baseline. Avoid nephrotoxic agent. #acute blood loss anemia - 2/2 GI loss with Chronic anemia likely secondary to anemia of chronic disease - Patient was transfused. iron, vitamin c, Protonix IV BID, GI consulted appreciated - unable to tolerate EGD yesterday - not interested in trying again - serial HH, previously d/w Dr Andrew - Tammie on hold con't asa # Chronic back pain - CT spine noted; discitis vs DDD/spinal stenosis - continue current pain regimen - CT L/T spine noted - follow as per pain management/ortho #Chronic atrial fibrillation - Eliquis on hold given GI bleed - BB # Diabetes mellitus. Continue basal bolus insulin. Adjust as needed. #Diarrhea. Resolved. # Coronary artery disease. Continue aspirin, beta blockers, Statin, Entresto. Diuresis with torsemide. Continue Isordil. Further recommendation per cardiology. Supportive care at this time. #Severe deconditioning. Supportive care. Continue physical therapy. # Deep vein thrombosis prophylaxis teds scq, Eliquis stopped given GI bleed DISPOSITION: Multiple medical problems. Poor alf prognosis. Severe decond itioning. Encourage oral intake. Likely disposition STR in the near future. VS,Fishbone, I+O VS, Fishbone, I+O Laboratory Tests 05/11/18 05:15 Red Blood Count 3.63 L, Mean Corpuscular Volume 84.0, Mean Corpuscular Hemoglobin 25.6 L, Mean Corpuscular Hemoglobin Concent 30.5 L, Red Cell Distribution Width 17.6 H, Calcium Level 7.9 L Vital Signs Date Time Temp Pulse Resp B/P (MAP) Pulse Ox O2 Delivery O2 Flow Rate FiO2 05/11/18 08:00 97.5 92 19 162/60 (94) 100 Nasal Cannula 2.0 I&O- Last 24 Hours up to 6 AM 05/11/18 05:59 Intake Total 700 ml Output Total 0 ml Balance 700 ml RONALD VENCES MD May 11, 2018 08:57
[2018-05-11] MEDS: SUCRALFATE SUSP 1GM/10ML UD PO SCH ×4 (10:05→21:40)
[2018-05-11] MEDS: CARVedilol 12.5 MG TAB PO SCH ×2 (10:05→21:27)
[2018-05-11] MEDS: ASPIRIN 81 MG ENTERIC TAB PO SCH (10:05)
[2018-05-11] MEDS: TORSEMIDE 20 MG TAB PO SCH (10:05)
[2018-05-11] MEDS: ENTRESTO 24-26MG TABLET (SACUBITRIL/VALSARTAN) PO SCH ×2 (10:05→21:22)
[2018-05-11] MEDS: POTASSIUM CHLORIDE 10 MEQ SR TABLET PO SCH ×2 (10:06→21:24)
[2018-05-11] MEDS: SENOKOT S TAB PO SCH ×2 (10:06→21:24)
[2018-05-11] MEDS: MULTIVITAMINS/MINERALS THERAP 1 TAB PO SCH (10:06)
[2018-05-11] MEDS: MIRALAX *UNIT DOSE* 17GM PACKET PO SCH ×2 (10:06→21:19)
[2018-05-11] MEDS: ISOSORBIDE DIN. (ISORDIL) 30 MG TAB PO SCH ×3 (10:06→21:23)
[2018-05-11] MEDS: FERROUS SULFATE 325MG TAB PO SCH ×2 (10:06→21:22)
[2018-05-11] MEDS: ATORVASTATIN 20 MG TAB PO SCH (10:06)
[2018-05-11] MEDS: ASCORBIC ACID 500 MG TAB PO SCH ×2 (10:07→21:23)
[2018-05-11] MEDS: LIDOCAINE 5% (LIDODERM) PATCH TD SCH (10:07)
[2018-05-11] MEDS: LEVEMIR (INSULIN DETEMIR) 1 UNITS/0.01ML SC SCH ×2 (10:07→21:22)
[2018-05-11] MEDS: FEBUXOSTAT 40 MG TABLET (ULORIC) PO SCH (10:07)
[2018-05-11] MEDS: PANTOPRAZOLE 40MG INJ (PROTONIX) (C9113) IV SCH ×2 (10:07→21:19)
[2018-05-11] MEDS: NYSTATIN 100,000 UNITS/GM TOPICAL PWD 15 GM TOP SCH ×2 (10:08→21:27)
[2018-05-11] MEDS: LIDOCAINE 5% OINT 30 GM TOP SCH (10:08)
[2018-05-11] MEDS: MORPHINE 4 MG/ML 1ML VIAL/SYRINGE (J2270) IV PRN (11:30)
[2018-05-11 12:00] VITALS: BP 136/96
[2018-05-11 16:00] VITALS: BP 140/70
[2018-05-11 20:00] VITALS: BP 155/76
[2018-05-11] MEDS: **NOTE PATIENT COMMENT** MISC XX SCH (21:00)
[2018-05-12] VITALS: BP 140/72
[2018-05-12] MEDS: IPRATROPIUM 0.5MG/ALBUTEROL 2.5MG INH SOL UD 3ML (DUONEB)(J7620) NEB SCH ×6 (03:44→21:22)
[2018-05-12 04:00] VITALS: BP 145/61
[2018-05-12 05:17] LABS: HEMATOCRIT 29.8 % (42.0-52.0); HEMOGLOBIN 8.9 g/dl (13.5-17.5); MEAN CORPUSCULAR HEMOGLOBIN 25.6 pg (27.0-33.0); MEAN CORPUSCULAR HGB CONC 29.9 g/dl (32.0-36.5); MEAN CORPUSCULAR VOLUME 85.6 fl (80.0-96.0); PLATELET COUNT, AUTOMATED 135 10^3/uL (150-450); RED BLOOD COUNT 3.48 10^6/uL (4.30-6.10); WHITE BLOOD COUNT 5.8 10^3/uL (4.0-10.0)
[2018-05-12] MEDS: SODIUM CHLORIDE 0.9% INJ 10 ML SYR IV SCH ×2 (05:26→18:01)
[2018-05-12] MEDS: AMPICILLIN SOD 2 GM in D5W MINI-BAG PLUS 100 ML IV SCH ×4 (05:26→23:41)
[2018-05-12] MEDS: traMADol 50 MG TAB PO SCH ×3 (05:29→22:23)
[2018-05-12 05:57] LABS: C REACTIVE PROTEIN QUANTITATIV 1.68 MG/DL (0.00-0.30); CALCIUM LEVEL 7.9 MG/DL (8.8-10.2); CREATININE FOR GFR 1.62 MG/DL (0.70-1.30); GLOMERULAR FILTRATION RATE 44.7 (>42); MAGNESIUM LEVEL 2.1 MG/DL (1.8-2.4); POTASSIUM SERUM 4.2 MEQ/L (3.5-5.1)
[2018-05-12 08:00] VITALS: BP 158/68
[2018-05-12] MEDS: HumaLOG INSULIN (NovoLOG) PER UNIT SC SCH ×4 (08:21→20:44)
[2018-05-12] MEDS: ASPIRIN 81 MG ENTERIC TAB PO SCH (11:32)
[2018-05-12] MEDS: SUCRALFATE SUSP 1GM/10ML UD PO SCH ×4 (11:32→20:43)
[2018-05-12] MEDS: TORSEMIDE 20 MG TAB PO SCH (11:32)
[2018-05-12] MEDS: CARVedilol 12.5 MG TAB PO SCH ×2 (11:32→20:46)
[2018-05-12] MEDS: CALCITRIOL 0.25 MCG CAP (S0169) PO SCH (11:33)
[2018-05-12] MEDS: ATORVASTATIN 20 MG TAB PO SCH (11:33)
[2018-05-12] MEDS: ENTRESTO 24-26MG TABLET (SACUBITRIL/VALSARTAN) PO SCH ×2 (11:33→20:46)
[2018-05-12] MEDS: ISOSORBIDE DIN. (ISORDIL) 30 MG TAB PO SCH ×3 (11:33→20:45)
[2018-05-12] MEDS: POTASSIUM CHLORIDE 10 MEQ SR TABLET PO SCH ×2 (11:33→20:45)
[2018-05-12] MEDS: FERROUS SULFATE 325MG TAB PO SCH ×2 (11:33→20:46)
[2018-05-12] MEDS: SENOKOT S TAB PO SCH ×2 (11:33→20:45)
[2018-05-12] MEDS: MIRALAX *UNIT DOSE* 17GM PACKET PO SCH ×2 (11:33→20:43)
[2018-05-12] MEDS: FEBUXOSTAT 40 MG TABLET (ULORIC) PO SCH (11:34)
[2018-05-12] MEDS: LIDOCAINE 5% OINT 30 GM TOP SCH (11:34)
[2018-05-12] MEDS: LIDOCAINE 5% (LIDODERM) PATCH TD SCH (11:34)
[2018-05-12] MEDS: PANTOPRAZOLE 40MG INJ (PROTONIX) (C9113) IV SCH ×2 (11:34→20:44)
[2018-05-12] MEDS: MULTIVITAMINS/MINERALS THERAP 1 TAB PO SCH (11:34)
[2018-05-12] MEDS: ASCORBIC ACID 500 MG TAB PO SCH ×2 (11:34→20:45)
[2018-05-12] MEDS: NYSTATIN 100,000 UNITS/GM TOPICAL PWD 15 GM TOP SCH ×2 (11:35→20:47)
[2018-05-12 12:00] VITALS: BP 154/72
[2018-05-12] MEDS: MORPHINE 4 MG/ML 1ML VIAL/SYRINGE (J2270) IV PRN (12:28)
--- NOTE | 2018-05-12 12:58 | IPNPDOC ---
Text Note Date of Service The patient was seen on 05/12/18. NOTE Subjective: Patient seen and examined at bedside. Still complains of back pain but improved. Objective: GENERAL: NAD, lying comfortably in bed HEENT: NC/AT, EOMI, MMM CARDIAC: +S1S2, irregular PULMONARY: Diminished breath sounds. ABDOMEN: soft, NT, +BS Back: stage 2 sacral decub ulcer EXTREMITIES: Trace to 1+ edema bilateral lower extremities. DT/PT pulses intact. ASSESSMENT AND PLAN: This is a 72-year-old male patient with underlying medical history of a-fib, CHF with diastolic and systolic dysfunction - EF 35%-40%, CAD, HTN, DM, CKD stage 3, gout, lumbar degenerative disc disease, spinal stenosis, radiculopathy, history of colon cancer, history of skin cancer, mitral insufficiency, iron deficiency anemia, dyslipidemia presented with generalized weakness and diarrhea initially was found to have enterococcus faecalis bacteremia. #Enterococcus faecalis bacteremia - Possible source Discitis vs colitis vs chronic cholecystitis - ID c/s appreciated - con't IV ampicillin, rocephin stopped after 1 week, f/u CRP ,ESR - LAUREANO was negative for vegetation - Bone scan was negative - Repeat echo appreciated - IV Ampicillin for 6 week total #Acute on chronic systolic and diastolic congestive heart failure - off dobutamine drip - currently on Torsemide dose adjusted - Entresto; continue Eliquis, statin, Coreg, Isordil - follow as per cardiology - assistance appreciated #Acute on chronic kidney disease - grossly at baseline - Baseline CKD stage 3 - likely secondary to nephrotoxic medications - gentamicin, Entresto and bacteremia - appreciate nephrology input - continue to monitor, returned to baseline. Avoid nephrotoxic agent. #acute blood loss anemia - 2/2 GI loss with Chronic anemia likely secondary to anemia of chronic disease - Patient was transfused. iron, vitamin c, Protonix IV BID, GI consulted appreciated - unable to tolerate EGD - not interested in trying again - serial HH, previously d/w Dr Andrew - Tammie on hold con't asa # Chronic back pain - CT spine noted; discitis vs DDD/spinal stenosis - continue current pain regimen - CT L/T spine noted - follow as per pain management/ortho #Chronic atrial fibrillation - Eliquis on hold given GI bleed - BB # Diabetes mellitus. Continue basal bolus insulin. Adjust as needed. #Diarrhea. Resolved. # Coronary artery disease. Continue aspirin, beta blockers, Statin, Entresto. Diuresis with torsemide. Continue Isordil. Further recommendation per cardiology. Supportive care at this time. #Severe deconditioning. Supportive care. Continue physical therapy. # Deep vein thrombosis prophylaxis teds scq, Eliquis stopped given GI bleed DISPOSITION: Multiple medical problems. 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 Severe deconditioning. Has been making some progress with PT. Placement pending. VS,Fishbone, I+O VS, Fishbone, I+O Laboratory Tests 05/12/18 05:08 Red Blood Count 3.48 L, Mean Corpuscular Volume 85.6, Mean Corpuscular Hemoglobin 25.6 L, Mean Corpuscular Hemoglobin Concent 29.9 L, Red Cell Distribution Width 17.8 H, Calcium Level 7.9 L Vital Signs Date Time Temp Pulse Resp B/P (MAP) Pulse Ox O2 Delivery O2 Flow Rate FiO2 05/12/18 12:28 22 05/12/18 12:00 97.4 100 154/72 (99) 97 Nasal Cannula 2.0 I&O- Last 24 Hours up to 6 AM 05/12/18 06:00 Intake Total 580 ml Balance 580 ml RONALD VENCES MD May 12, 2018 12:58
[2018-05-12] MEDS: LEVEMIR (INSULIN DETEMIR) 1 UNITS/0.01ML SC SCH ×2 (14:22→20:44)
[2018-05-12 15:55] VITALS: BP 142/83
--- NOTE | 2018-05-12 16:19 | IPN ---
DATE: 05/12/2018 INFECTIOUS DISEASE PROGRESS NOTE: Connor is doing fairly well except for severe back pain. He describes the back pain being midthoracic and low back. He is not able to tolerate physical therapy or get out of bed without assist of nursing and physical therapy to get in the chair. In the chair, he cannot tolerate more than 15 minutes. He is really trying hard. He is on tramadol three times a day but no other pain medications except for IV morphine, which is not used very frequently. Pain consultants have been called again. On physical exam, he looks well in bed. Heart: Normal S1-S2, regular. Systolic ejection murmur 2/6 heard at the left upper sternal border. Lungs: Diminished breath sounds bases. Abdomen: Soft, obese, nontender. Extremities: No edema. He has bilateral rash for venous ulcers that are healing well. IMPRESSION: 1. Enterococcus (E) faecalis bacteremia with possibility of discitis as the patient has severe intractable back pain, which is new for him. The patient is on intravenous (IV) Rocephin. C-reactive protein (CRP) is improving. Transesophageal echocardiogram (LAUREANO) negative for a vegetation. Patient to finish IV ampicillin from negative blood cultures, which would be 04/19/2018. End of therapy would be on 05/31/2018. 2. History of colon cancer, stable. 3. Congestive heart failure acute on chronic systolic and diastolic. The patient is doing well. He was on dobutamine and currently on torsemide. PLAN: Continue with IV ampicillin 2 grams every 6 hours until 06/01/2018. Better pain management I suggested to the nurses to give him his tramadol dose along with two Tylenol which would help synergistically with his pain management. The patient may also benefit from gabapentin to help with his physical therapy and getting him out of bed. LABS: White count 5.8, hemoglobin 8.9, hematocrit 29.8, platelets 135. Sodium 146, potassium 4.2, chloride 110, bicarbonate 29, BUN 38, creatinine 1.62, glucose 124, calcium 7.9, magnesium 2.1. CRP 1.68, down from 8.9. Monitor complete blood count (CBC), basic, C-reactive protein (CRP), sedimentation rate from an infectious disease standpoint once a week. [facility]
--- NOTE | 2018-05-12 17:02 | CR ---
DATE OF CONSULTATION: 05/12/2018 CHIEF COMPLAINT: Generalized back pain. REFERRING PROVIDER: Dr. Jay HISTORY OF PRESENT ILLNESS: Von is a 72-year-old gentleman who has been admitted since March 2016 due to dehydration. Pain has been managed with intravenous (IV) morphine. For some reason, he has not received that on a regular basis for 3 or 4 days, and his pain has been out of control. They did restart that today, and he has had a few doses today, and he feels that his pain is being controlled, rating his pain level as a 3/10. Planning for the future, it would be grimm to find alternatives to IV pain medicine control. He still is not moving much for therapy and rehabilitation. Discussed case with primary care RN in charge of his care this afternoon. It would be my suggestion to try by mouth morphine 15 mg every 8 hours for pain levels 7-10 over 10 visual analog scale (VAS). Continue with tramadol and Tylenol combination every 6 hours as needed for moderate pain episodes.. Please contact us if there continues to be a problem with pain control. PHYSICAL EXAMINATION: Awakens easily. Responds to questions appropriately. VITAL SIGNS: 97.4, 120, blood pressure (BP) 154/72, oxygen saturation 97% on nasal cannula 2 liters oxygen. CARDIAC: A grade 3/4 systolic murmur. Slightly irregular rhythm. RESPIRATORY: Respirations nonlabored. Lung sounds diminished in the bases bilaterally. Inspection of lower extremities: Covered with bandages. Reports normal sensation to light touch in the thigh area. No redness or swelling. Toes are warm to touch. The patient is unable to move unassisted. ASSESSMENT: 1. Chronic back pain. 2. Multiple comorbidities. PLAN: Recommend trial of morphine 15 mg po every 8 hours as needed for severe pain episodes. Continue with tramadol 50 mg and Tylenol for moderate pain episodes every 6 hours. Continue with efforts for rehabilitation or placement. MTDD
[2018-05-12] MEDS ORDERED: PILL CRUSHER/CUTTER 1 EACH XX PRN (17:30)
[2018-05-12] MEDS: **NOTE PATIENT COMMENT** MISC XX SCH (20:48)
[2018-05-12 22:00] VITALS: BP 130/80
[2018-05-13] MEDS: IPRATROPIUM 0.5MG/ALBUTEROL 2.5MG INH SOL UD 3ML (DUONEB)(J7620) NEB SCH ×7 (00:41→23:44)
[2018-05-13] MEDS: AMPICILLIN SOD 2 GM in D5W MINI-BAG PLUS 100 ML IV SCH ×4 (05:32→23:55)
[2018-05-13] MEDS: SODIUM CHLORIDE 0.9% INJ 10 ML SYR IV SCH ×2 (05:33→18:14)
[2018-05-13] MEDS: traMADol 50 MG TAB PO SCH ×3 (05:33→21:54)
[2018-05-13 06:00] VITALS: BP 162/84
[2018-05-13 06:31] LABS: C REACTIVE PROTEIN QUANTITATIV 2.42 MG/DL (0.00-0.30)
[2018-05-13 07:01] LABS: ALBUMIN 1.9 GM/DL (3.2-5.2); BILIRUBIN,TOTAL 0.4 MG/DL (0.2-1.0); CREATININE FOR GFR 1.56 MG/DL (0.70-1.30); GLOMERULAR FILTRATION RATE 46.7 (>42); POTASSIUM SERUM 4.3 MEQ/L (3.5-5.1); TOTAL PROTEIN 5.2 GM/DL (6.4-8.2)
[2018-05-13] MEDS: HumaLOG INSULIN (NovoLOG) PER UNIT SC SCH ×4 (07:51→21:00)
[2018-05-13 07:53] LABS: BASO % 0.7 % (0.0-1.0); EOS # 0.3 10^3/uL (0.0-0.50); EOS % 5.9 % (0.0-3.0); HEMATOCRIT 28.5 % (42.0-52.0); HEMOGLOBIN 8.6 g/dl (13.5-17.5); LYMPH # 0.5 10^3/uL (1.5-4.5); LYMPH % 10.8 % (24.0-44.0); MEAN CORPUSCULAR HEMOGLOBIN 25.9 pg (27.0-33.0); MEAN CORPUSCULAR HGB CONC 30.2 g/dl (32.0-36.5); MEAN CORPUSCULAR VOLUME 85.8 fl (80.0-96.0); MONO # 0.4 10^3/uL (0.0-0.8); MONO % 10.1 % (0.0-5.0); NEUTROPHILS # 3.1 10^3/uL (1.8-7.7); NEUTROPHILS % 72.3 % (36.0-66.0); PLATELET COUNT, AUTOMATED 140 10^3/uL (150-450); RED BLOOD COUNT 3.32 10^6/uL (4.30-6.10); WHITE BLOOD COUNT 4.3 10^3/uL (4.0-10.0)
[2018-05-13] MEDS: SUCRALFATE SUSP 1GM/10ML UD PO SCH ×4 (08:54→21:54)
[2018-05-13] MEDS: ATORVASTATIN 20 MG TAB PO SCH (08:58)
[2018-05-13] MEDS: FERROUS SULFATE 325MG TAB PO SCH ×2 (08:58→21:53)
[2018-05-13] MEDS: PANTOPRAZOLE 40MG INJ (PROTONIX) (C9113) IV SCH ×2 (08:58→21:51)
[2018-05-13] MEDS: MULTIVITAMINS/MINERALS THERAP 1 TAB PO SCH (08:58)
[2018-05-13] MEDS: CARVedilol 12.5 MG TAB PO SCH ×2 (08:59→21:53)
[2018-05-13] MEDS: TORSEMIDE 20 MG TAB PO SCH (08:59)
[2018-05-13] MEDS: SENOKOT S TAB PO SCH ×2 (08:59→21:00)
[2018-05-13] MEDS: ASCORBIC ACID 500 MG TAB PO SCH ×2 (08:59→21:53)
[2018-05-13] MEDS: FEBUXOSTAT 40 MG TABLET (ULORIC) PO SCH (09:00)
[2018-05-13] MEDS: ISOSORBIDE DIN. (ISORDIL) 30 MG TAB PO SCH ×3 (09:00→21:52)
[2018-05-13] MEDS: ASPIRIN 81 MG ENTERIC TAB PO SCH (09:00)
[2018-05-13] MEDS: ENTRESTO 24-26MG TABLET (SACUBITRIL/VALSARTAN) PO SCH ×2 (09:00→21:57)
[2018-05-13] MEDS: LEVEMIR (INSULIN DETEMIR) 1 UNITS/0.01ML SC SCH ×2 (09:00→21:00)
[2018-05-13] MEDS: POTASSIUM CHLORIDE 10 MEQ SR TABLET PO SCH ×2 (09:00→21:52)
[2018-05-13] MEDS: MIRALAX *UNIT DOSE* 17GM PACKET PO SCH ×2 (09:01→21:00)
[2018-05-13] MEDS: LIDOCAINE 5% (LIDODERM) PATCH TD SCH (09:01)
--- NOTE | 2018-05-13 10:56 | IPNPDOC ---
Text Note Date of Service The patient was seen on 05/13/18. NOTE Subjective: Patient seen and examined at bedside. Feeling better today. Objective: GENERAL: NAD, lying comfortably in bed HEENT: NC/AT, EOMI, MMM CARDIAC: +S1S2, irregular PULMONARY: Diminished breath sounds. ABDOMEN: soft, NT, +BS Back: stage 2 sacral decub ulcer EXTREMITIES: Trace to 1+ edema bilateral lower extremities. DT/PT pulses intact. ASSESSMENT AND PLAN: This is a 72-year-old male patient with underlying medical history of a-fib, CHF with diastolic and systolic dysfunction - EF 35%-40%, CAD, HTN, DM, CKD stage 3, gout, lumbar degenerative disc disease, spinal stenosis, radiculopathy, history of colon cancer, history of skin cancer, mitral insufficiency, iron deficiency anemia, dyslipidemia presented with generalized weakness and diarrhea initially was found to have enterococcus faecalis bacteremia. #Enterococcus faecalis bacteremia - Possible source Discitis vs colitis vs chronic cholecystitis - ID c/s appreciated - con't IV ampicillin - end date 06/01/18, f/u CBC, CRP ,ESR - LAUREANO was negative for vegetation - Bone scan was negative - Repeat echo appreciated - IV Ampicillin for 6 week total #Acute on chronic systolic and diastolic congestive heart failure - off dobutamine drip - currently on Torsemide dose adjusted - Entresto; continue Eliquis, statin, Coreg, Isordil - follow as per cardiology - assistance appreciated #Acute on chronic kidney disease - grossly at baseline - Baseline CKD stage 3 - likely secondary to nephrotoxic medications - gentamicin, Entresto and bacteremia - appreciate nephrology input - continue to monitor, returned to baseline. Avoid nephrotoxic agent. #acute blood loss anemia - 2/2 GI loss with Chronic anemia likely secondary to anemia of chronic disease - Patient was transfused. iron, vitamin c, Protonix IV BID, GI consulted appreciated - unable to tolerate EGD - not interested in trying again - slowly trending down - serial HH - previously d/w Dr Andrew - Tammie on hold con't asa # Chronic back pain - CT spine noted; discitis vs DDD/spinal stenosis - continue current pain regimen - CT L/T spine noted - follow as per pain management/ortho - recs implemented - seems to be doing better #Chronic atrial fibrillation - Eliquis on hold given GI bleed - BB # Diabetes mellitus. Continue basal bolus insulin. Adjust as needed. #Diarrhea. Resolved. # Coronary artery disease. Continue aspirin, beta blockers, Statin, Entresto. Diuresis with torsemide. Continue Isordil. Further recommendation per cardiology. Supportive care at this time. #Severe deconditioning. Supportive care. Continue physical therapy. # Deep vein thrombosis prophylaxis teds scq, Eliquis stopped given GI bleed DISPOSITION: Multiple medical problems. 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 Severe deconditioning. Has been making some progress with PT. Placement pending. VS,Fishbone, I+O VS, Fishbone, I+O Laboratory Tests 05/13/18 05:42 Calcium Level 8.0 L, Aspartate Amino Transf (AST/SGOT) 15, Alanine Aminotransferase (ALT/SGPT) 15, Alkaline Phosphatase 122 H, Total Bilirubin 0.4, Total Protein 5.2 L, Albumin 1.9 L 05/13/18 06:51 Red Blood Count 3.32 L, Mean Corpuscular Volume 85.8, Mean Corpuscular Hemoglobin 25.9 L, Mean Corpuscular Hemoglobin Concent 30.2 L, Red Cell Distribution Width 17.9 H, Neutrophils (%) (Auto) 72.3 H, Lymphocytes (%) (Auto) 10.8 L, Monocytes (%) (Auto) 10.1 H, Eosinophils (%) (Auto) 5.9 H, Basophils (%) (Auto) 0.7, Neutrophils # (Auto) 3.1, Lymphocytes # (Auto) 0.5 L, Monocytes # (Auto) 0.4, Eosinophils # (Auto) 0.3, Basophils # (Auto) 0.0 Vital Signs Date Time Temp Pulse Resp B/P (MAP) Pulse Ox O2 Delivery O2 Flow Rate FiO2 05/13/18 09:00 162/84 05/13/18 08:59 76 05/13/18 06:00 97.3 18 95 Nasal Cannula 2.0 I&O- Last 24 Hours up to 6 AM 05/13/18 06:00 Intake Total 690 ml Output Total 0 ml Balance 690 ml RONALD VENCES MD May 13, 2018 10:56
[2018-05-13] MEDS: LIDOCAINE 5% OINT 30 GM TOP SCH (12:01)
[2018-05-13] MEDS: NYSTATIN 100,000 UNITS/GM TOPICAL PWD 15 GM TOP SCH ×2 (12:02→21:54)
[2018-05-13 14:00] VITALS: BP 170/88
[2018-05-13 18:14] VITALS: BP 151/98
[2018-05-13] MEDS: **NOTE PATIENT COMMENT** MISC XX SCH (21:00)
[2018-05-13 22:00] VITALS: BP 155/80
[2018-05-14] MEDS: IPRATROPIUM 0.5MG/ALBUTEROL 2.5MG INH SOL UD 3ML (DUONEB)(J7620) NEB SCH ×5 (03:38→20:28)
[2018-05-14] MEDS: SODIUM CHLORIDE 0.9% INJ 10 ML SYR IV SCH ×2 (05:29→17:46)
[2018-05-14] MEDS: AMPICILLIN SOD 2 GM in D5W MINI-BAG PLUS 100 ML IV SCH ×4 (05:29→23:18)
[2018-05-14 05:46] LABS: HEMATOCRIT 29.2 % (42.0-52.0); HEMOGLOBIN 8.8 g/dl (13.5-17.5); MEAN CORPUSCULAR HEMOGLOBIN 25.9 pg (27.0-33.0); MEAN CORPUSCULAR HGB CONC 30.1 g/dl (32.0-36.5); MEAN CORPUSCULAR VOLUME 85.9 fl (80.0-96.0); PLATELET COUNT, AUTOMATED 132 10^3/uL (150-450); WHITE BLOOD COUNT 5.3 10^3/uL (4.0-10.0)
[2018-05-14 06:00] VITALS: BP 134/64
[2018-05-14 06:02] LABS: C REACTIVE PROTEIN QUANTITATIV 1.92 MG/DL (0.00-0.30); CALCIUM LEVEL 7.7 MG/DL (8.8-10.2); CREATININE FOR GFR 1.57 MG/DL (0.70-1.30); GLOMERULAR FILTRATION RATE 46.3 (>42); POTASSIUM SERUM 4.2 MEQ/L (3.5-5.1)
[2018-05-14] MEDS: traMADol 50 MG TAB PO SCH ×3 (06:16→22:10)
[2018-05-14] MEDS: HumaLOG INSULIN (NovoLOG) PER UNIT SC SCH ×4 (07:30→21:00)
--- NOTE | 2018-05-14 08:57 | IPNPDOC ---
Text Note Date of Service The patient was seen on 05/14/18. NOTE Subjective: Patient seen and examined at bedside. Feeling better today. Pain under better control. Objective: GENERAL: NAD, lying comfortably in bed HEENT: NC/AT, EOMI, MMM CARDIAC: +S1S2, irregular PULMONARY: Diminished breath sounds. ABDOMEN: soft, NT, +BS Back: stage 2 sacral decub ulcer EXTREMITIES: Trace to 1+ edema bilateral lower extremities. DT/PT pulses intact. B/L LE bandages in place. Multiple ecchymotic areas B/L UE. ASSESSMENT AND PLAN: This is a 72-year-old male patient with underlying medical history of a-fib, CHF with diastolic and systolic dysfunction - EF 35%-40%, CAD, HTN, DM, CKD stage 3, gout, lumbar degenerative disc disease, spinal stenosis, radiculopathy, history of colon cancer, history of skin cancer, mitral insufficiency, iron deficiency anemia, dyslipidemia presented with generalized weakness and diarrhea initially was found to have enterococcus faecalis bacteremia. #Enterococcus faecalis bacteremia - Possible source Discitis vs colitis vs chronic cholecystitis - ID c/s appreciated - con't IV ampicillin - end date 06/01/18, f/u CBC, CRP ,ESR - LAUREANO was negative for vegetation - Bone scan was negative - Repeat echo appreciated - IV Ampicillin for 6 week total #Acute on chronic systolic and diastolic congestive heart failure - off dobutamine drip - currently on Torsemide dose adjusted - Entresto; continue Eliquis, statin, Coreg, Isordil - follow as per cardiology - assistance appreciated #Acute on chronic kidney disease - grossly at baseline - Baseline CKD stage 3 - likely secondary to nephrotoxic medications - gentam icin, Entresto and bacteremia - appreciate nephrology input - continue to monitor, returned to baseline. Avoid nephrotoxic agent. #acute blood loss anemia - 2/2 GI loss with Chronic anemia likely secondary to anemia of chronic disease - Patient was transfused. iron, vitamin c, Protonix IV BID, GI consulted appreciated - unable to tolerate EGD - not interested in trying again - was trending down - slight improvement today - continue to follow - previously d/w Dr Andrew - Tammie on hold con't asa # Chronic back pain - CT spine noted; discitis vs DDD/spinal stenosis - continue current pain regimen - CT L/T spine noted - follow as per pain management/ortho - recs implemented - seems to be doing better #Chronic atrial fibrillation - Eliquis on hold given GI bleed - BB # Diabetes mellitus. Continue basal bolus insulin. Adjust as needed. #Diarrhea. Resolved. # Coronary artery disease. Continue aspirin, beta blockers, Statin, Entresto. Diuresis with torsemide. Continue Isordil. Further recommendation per cardiology. Supportive care at this time. #Severe deconditioning. Supportive care. Continue physical therapy. # Deep vein thrombosis prophylaxis teds scq, Eliquis stopped given GI bleed DISPOSITION: Multiple medical problems. Poor long-term prognosis. Severe deconditioning. Has been making some progress with PT. Placement pending. VS,Fishbone, I+O VS, Fishbone, I+O Laboratory Tests 05/14/18 05:27 Red Blood Count 3.40 L, Mean Corpuscular Volume 85.9, Mean Corpuscular Hemoglobin 25.9 L, Mean Corpuscular Hemoglobin Concent 30.1 L, Red Cell Distribution Width 17.7 H, Calcium Level 7.7 L Vital Signs Date Time Temp Pulse Resp B/P (MAP) Pulse Ox O2 Delivery O2 Flow Rate FiO2 05/14/18 06:16 18 Nasal Cannula 05/14/18 06:00 98.4 91 134/64 (87) 94 2.0 I&O- Last 24 Hours up to 6 AM 05/14/18 05:59 Intake Total 1858 ml Output Total 0 ml Balance 1858 ml RONALD VENCES MD May 14, 2018 08:57
[2018-05-14] MEDS: ASPIRIN 81 MG ENTERIC TAB PO SCH (09:00)
[2018-05-14] MEDS: MIRALAX *UNIT DOSE* 17GM PACKET PO SCH ×2 (09:06→21:00)
[2018-05-14] MEDS: PANTOPRAZOLE 40MG INJ (PROTONIX) (C9113) IV SCH ×2 (09:06→22:08)
[2018-05-14] MEDS: SUCRALFATE SUSP 1GM/10ML UD PO SCH ×4 (09:07→22:07)
[2018-05-14] MEDS: LIDOCAINE 5% OINT 30 GM TOP SCH (09:07)
[2018-05-14] MEDS: ENTRESTO 24-26MG TABLET (SACUBITRIL/VALSARTAN) PO SCH ×2 (09:08→22:08)
[2018-05-14] MEDS: MULTIVITAMINS/MINERALS THERAP 1 TAB PO SCH (09:08)
[2018-05-14] MEDS: SENOKOT S TAB PO SCH ×2 (09:08→21:00)
[2018-05-14] MEDS: LIDOCAINE 5% (LIDODERM) PATCH TD SCH (09:08)
[2018-05-14] MEDS: CARVedilol 12.5 MG TAB PO SCH ×2 (09:09→22:08)
[2018-05-14] MEDS: FEBUXOSTAT 40 MG TABLET (ULORIC) PO SCH (09:09)
[2018-05-14] MEDS: TORSEMIDE 20 MG TAB PO SCH (09:10)
[2018-05-14] MEDS: ATORVASTATIN 20 MG TAB PO SCH (09:10)
[2018-05-14] MEDS: FERROUS SULFATE 325MG TAB PO SCH ×2 (09:10→22:10)
[2018-05-14] MEDS: ISOSORBIDE DIN. (ISORDIL) 30 MG TAB PO SCH ×3 (09:10→22:09)
[2018-05-14] MEDS: ASCORBIC ACID 500 MG TAB PO SCH ×2 (09:10→22:08)
[2018-05-14] MEDS: LEVEMIR (INSULIN DETEMIR) 1 UNITS/0.01ML SC SCH ×2 (09:11→21:00)
[2018-05-14] MEDS: POTASSIUM CHLORIDE 10 MEQ SR TABLET PO SCH ×2 (09:11→22:09)
[2018-05-14] MEDS: NYSTATIN 100,000 UNITS/GM TOPICAL PWD 15 GM TOP SCH ×2 (09:13→22:11)
[2018-05-14 14:00] VITALS: BP 144/58
--- NOTE | 2018-05-14 19:17 | MHIPNPDOC ---
[facility] Progress Note Progress Note DATE OF SERVICE: 05/14/18 HISTORY: Evaluated 72 yearl old male who, as per initial evaluation:"Mr. Dixon is a 72-year-old male who presents to [facility] emergency department with weakness and diarrhea. Past medical history significant for chronic atrial fibrillation, diastolic and systolic congestive heart failure with an ejection fraction 35-40%, coronary artery disease, hypertension, diabetes mellitus, chronic kidney disease stage III, gout, lumbar degenerative disc disease with stenosis/radiculopathy, history of colon cancer, history of skin cancer, mitral valve calcification/insufficiency, history of iron deficiency anemia, hyperlipidemia. Patient states that for the last couple of days he has been progressively getting weaker to the point where he is now unable to stand. At baseline he uses a walker. He denies numbness and tingling in his lower extremities. There is no swelling. He states he has no back pain or neck pain. He has been eating and drinking without difficulty and notes no changes to his diet. He is not nauseous, vomiting, has abdominal pain however, patient does admit to watery diarrhea for the last 5 days. He is not febrile. He denies night sweats or chills. Patient was recently seen by his local pottery decoration designer on 04/06/2018 at which time he had also admitted to diarrhea. His started on cholestyramine. His thought that his diarrhea was secondary to his gallbladder disease. At time of his cardiology appointment patient was encouraged to maintain a salt and fluid restriction. His advised to resume his torsemide 20 mg by mouth daily and to increase to 20 mg twice daily she does weight increase by 2 more pounds. No changes were made to any of his other medications. However, patient states that in the coming days cardiology had been in contact with patient and advised him to discontinue his diuretics. He was further advised to present to the emergency department for further evaluation. Emergency department evaluation revealed atrial fibrillation on EKG. There is no white count. There is a slight increase in his creatinine to 1.76. Chest x-ray reveals poorly congestion; however this does not appear to be significantly new finding." VITAL SIGNS: See below. NEW TEST RESULTS: See below CURRENT MEDICATIONS: See below. MENTAL STATUS EXAMINATION: Patient is a 72-year old male, who is alert, cooperative, dressed in hospital clothes, laying in bed with his eyes closed. Speech: Is not fluent, non spontaneous, short, brief responses, seems as if he is confabulating. Language skills limited at this time. Thought processes including: concrete thoughts, not linear, seems that thought blocking is present. Thought content: unknown. Patient takes deep breaths when I ask him if he is worried or anxious, if he is angry or sad. He repeatedly "I'm relieved". When I ask him what is he relieved for, he says "for my heart". . Description of abnormal or psychotic thoughts: Denied SI, denied AV hallucinations, denied thought delusions, denied HI Judgment: Seems impaired Insight: very limited Orientation: to place and person but not to date and time Recent and remote memory: Limited Attention span and concentration: He pays attention to what I say but he is unable to respond to many of them. Language: Limited Fund of knowledge: Unable to assess. Mood: "I'm relieved". Affect: Blunted, constricted DIAGNOSES: 1. Other specified depressive disorder 2. r/o depression secondary to other medical conditions. ASSESSMENT: patient was pleasant, calm and cooperative but he couldn't contribute to the evaluation because for most of it, he looked at me as if he was confused, he tried to give me an answer but he couldn't. When I asked him where was he born, I said: were you born here in [place]?, he said "no", and I asked: "so, where were you born?". He said [place]". I asked "where in [place]". He said "[place]". I asked where in [place]: [place]?, [facility]? [facility]?, [place]?. He said "[place]". I said, can you tell me something about your childhood in [place]?" and at that point he gave me that blank stare ozzy t he had given me before. He said he doesn't feel depressed, he doesn't feel sad, he is not anxious or angry. He said, several times: "I'm relieved". I asked why does he feel relieved and he said: "I feel relieved in my heart". He said he felt relieved because he felt better. I think that the patient might have a mild cognitive impairment, which would not be abnormal given his age and his multiple medical illnesses. He is on Torsemide, Tramadol and many other medications that would complicate his treatment with antidepressants because it could lead to a Qtc prolongation or a serotoninergic syndrome. He says he is not depressed, he denies suicidal ideation. I think the risk/benefit should be weighed in this case, but I feel that antidepresants would complicate his medical condition even more, could make him seepier. Nursing staff say that he was very well in the morning but after he had a conversation with his , his mood changed and they have seen the same reaction that I observed. MANAGEMENT PLAN: As above TIME SPENT: 35 minutes. Vital Signs Vital Signs Date Time Temp Pulse Resp B/P (MAP) Pulse Ox O2 Delivery O2 Flow Rate FiO2 05/14/18 17:46 144/58 05/14/18 14:00 97.8 90 17 96 Nasal Cannula 2.0 Laboratory Data 24H Labs Laboratory Tests 2 05/13/18 21:00: Bedside Glucose (Misc Panel) 98 05/14/18 05:27: Nucleated Red Blood Cells % (auto) 0.0, Anion Gap 8, Glomerular Filtration Rate 46.3, Blood Urea Nitrogen 23H, Creatinine 1.57H, Sodium Level 146H, Potassium Level 4.2, Chloride Level 111H, Carbon Dioxide Level 27, Calcium Level 7.7L, C- Reactive Protein, Quantitative 1.92H 05/14/18 11:40: Bedside Glucose (Misc Panel) 149H CBC/BMP Laboratory Tests 05/14/18 05:27 Red Blood Count 3.40 L, Mean Corpuscular Volume 85.9, Mean Corpuscular Hemoglobin 25.9 L, Mean Corpuscular Hemoglobin Concent 30.1 L, Red Cell Distribution Width 17.7 H, Calcium Level 7.7 L Current Medications Current Medications Acetaminophen (Tylenol Tab) 650 mg Q4H PRN PO PAIN Last administered on 05/08/18at 03:59; Start 04/14/18 at 14:00 Albuterol Sulfate (Proventil Neb) 2.5 mg Q2HP PRN INH SOB/WHEEZING; Start 04/30/18 at 09:15 Albuterol/ Ipratropium (Duoneb (Ipr 0.5mg/Alb 2.5mg)) 3 ml RQ4H NEB Last administered on 05/14/18at 15:33; Start 04/30/18 at 08:00 Ampicillin Sodium 2 gm/Dextrose 100 ml @ 200 mls/hr Q4H IV Last administered on 04/21/18at 09:52; Start 04/19/18 at 14:00; Stop 04/21/18 at 10:10; Status DC Ampicillin Sodium 2 gm/Dextrose 100 ml @ 200 mls/hr Q6H IV Last administered on 05/14/18at 17:46; Start 04/24/18 at 18:00 Apixaban (Eliquis) 2.5 mg BID PO Last administered on 05/07/18at 21:20; Start 04/14/18 at 21:00; Stop 05/08/18 at 08:28; Status DC Ascorbic Acid (Vitamin C) 500 mg BID PO Last administered on 04/29/18at 08:38; Start 04/17/18 at 09:00; Stop 04/29/18 at 13:59; Status DC Ascorbic Acid (Vitamin C) 500 mg BID PO Last administered on 05/14/18at 09:10; Start 05/07/18 at 09:00 Aspirin (Ecotrin) 81 mg DAILY PO Last administered on 05/14/18at 09:00; Start 04/14/18 at 09:00 Atorvastatin Calcium (Lipitor) 40 mg DAILY PO Last administered on 05/14/18at 09:10; Start 04/14/18 at 09:00 Calcitriol (Rocaltrol) 0.25 mcg MoWeFr@0900 PO Last administered on 05/12/18at 11:33; Start 04/14/18 at 09:00 Calcium Carbonate (Tums) 1,000 mg Q4HP PRN PO HEARTBURN Last administered on 04/26/18at 23:42; Start 04/21/18 at 21:30 Carvedilol (COReg) 6.25 mg BID PO Last administered on 05/02/18at 21:14; Start 04/14/18 at 21:00; Stop 05/02/18 at 21:26; Status DC Carvedilol (COReg) 25 mg BID PO Last administered on 05/14/18at 09:09; Start 05/03/18 at 09:00 Cefepime HCl 1 gm/ Dextrose 50 ml @ 100 mls/hr Q12H IV Last administered on 04/18/18at 12:00; Start 04/17/18 at 11:00; Stop 04/18/18 at 20:10; Status DC Ceftriaxone Sodium 1 gm/ Dextrose 50 ml @ 100 mls/hr Q24H IV Last administered on 04/24/18at 11:24; Start 04/21/18 at 12:00; Stop 04/24/18 at 21:02; Status DC Ceftriaxone Sodium 2 gm/ Dextrose 50 ml @ 100 mls/hr Q12H IV Last administered on 05/02/18at 21:11; Start 04/24/18 at 21:00; Stop 05/02/18 at 22:48; Status DC Ceftriaxone Sodium 2 gm/ Dextrose 50 ml @ 100 mls/hr Q24H IV Last administered on 04/18/18at 21:25; Start 04/18/18 at 21:00; Stop 04/19/18 at 08:16; Status DC Dextrose (Dextrose 50%) 25 ml ASDIRECTED PRN IV SEE LABEL COMMENTS; Start 04/14/18 at 14:00 Dextrose (Dextrose 50%) 25 ml ASDIRECTED PRN IV SEE LABEL COMMENTS; Start 04/15/18 at 08:15; Status UNV Diatrizoate Meglum/ Diatrizoate Sod (Gastrografin) 10 ml Q30M PO Last administered on 04/19/18at 19:33; Start 04/19/18 at 17:45; Stop 04/19/18 at 18:16; Status DC Diatrizoate Meglum/ Diatrizoate Sod (Gastrografin) 10 ml Q30M PO Last administered on 04/23/18at 12:21; Start 04/23/18 at 11:15; Stop 04/23/18 at 11:46; Status DC Dobutamine HCl 050270 mcg/IV Miscellaneous Supplies 250 ml @ 8 mls/hr DRIP IV L ast administered on 05/01/18at 21:43; Start 04/30/18 at 12:45; Stop 05/02/18 at 21:27; Status DC Emollient Ointment (Aquaphor) bilat legs DAILY TOP Last administered on 05/07/18at 08:21; Start 04/15/18 at 09:00; Stop 05/09/18 at 08:51; Status DC Febuxostat (Uloric) 80 mg DAILY PO Last administered on 05/14/18at 09:09; Start 04/14/18 at 09:00 Fentanyl Citrate (Sublimaze) 25 mcg Q5MP PRN IV MODERATE PAIN (PS 4-7); Start 04/19/18 at 18:00; Stop 04/19/18 at 19:00; Status DC Ferrous Sulfate (Ferrous Sulfate) 325 mg BID PO Last administered on 05/14/18at 09:10; Start 04/17/18 at 09:00 Gentamicin Sulfate 100 mg/IV Miscellaneous Supplies 100 ml @ 200 mls/hr Q24H IV Last administered on 04/21/18at 05:54; Start 04/21/18 at 06:00; Stop 04/21/18 at 10:10; Status DC Gentamicin Sulfate 80 mg/IV Miscellaneous Supplies 100 ml @ 200 mls/hr Q12H IV Last administered on 04/20/18at 03:17; Start 04/19/18 at 15:00; Stop 04/20/18 at 14:57; Status DC Glucagon (Glucagon) 1 mg ASDIRECTED PRN SC SEE LABEL COMMENTS; Start 04/14/18 at 14:00 Glucose (Glucose) 16 GM ASDIRECTED PRN PO SEE LABEL COMMENTS; Start 04/14/18 at 14:00 Heparin Sodium (Heparin (Flush)) 200 units ASDIRECTED PRN IV SEE LABEL COMMENTS Last administered on 05/10/18at 21:48; Start 04/25/18 at 17:00 Heparin Sodium (Heparin (Flush)) 200 units PICC IV Last administered on 05/14/18at 17:46; Start 04/25/18 at 18:00 Home Med (Med Rec Complete!) ASDIRECTED XX ; Start 04/14/18 at 14:00; Stop 04/14/18 at 14:00; Status DC Insulin Detemir (Levemir Insulin) 8 units BID SC Last administered on 05/14/18at 09:11; Start 05/08/18 at 09:00 Insulin Detemir (Levemir Insulin) 10 units BID SC Last administered on 8at 21:22; Start 04/15/18 at 09:00; Stop 05/08/18 at 08:30; Status DC Insulin Detemir (Levemir Insulin) 22 units QHS SC ; Start 04/14/18 at 21:00; Stop 04/14/18 at 21:00; Status DC Insulin Detemir (Levemir Insulin) 24 units QAM SC ; Start 04/15/18 at 09:00; Stop 04/15/18 at 09:00; Status DC Insulin Human Lispro (HumaLOG INSULIN) SEE PROTOCOL TABLE AC SC ; Start 04/14/18 at 17:30; Stop 04/14/18 at 17:30; Status DC Insulin Human Lispro (HumaLOG INSULIN) SEE PROTOCOL TABLE AC SC Last a dministered on 05/14/18at 13:19; Start 04/15/18 at 12:00 Insulin Human Lispro (HumaLOG INSULIN) SEE PROTOCOL TABLE QHS SC ; Start 04/14/18 at 21:00; Stop 04/14/18 at 21:00; Status DC Insulin Human Lispro (HumaLOG INSULIN) SEE PROTOCOL TABLE QHS SC Last administered on 04/20/18at 21:12; Start 04/15/18 at 21:00 Isosorbide Dinitrate (Isordil) 10 mg TID@0800,1300,1800 PO Last administered on 04/24/18at 12:24; Start 04/16/18 at 13:00; Stop 04/24/18 at 12:52; Status DC Isosorbide Dinitrate (Isordil) 20 mg TID@0800,1300,1800 PO ; Start 04/24/18 at 13:00; Stop 04/24/18 at 13:00; Status DC Isosorbide Dinitrate (Isordil) 20 mg TID@0800,1300,1800 PO Last administered on 05/02/18at 17:43; Start 04/24/18 at 18:00; Stop 05/02/18 at 21:28; Status DC Isosorbide Dinitrate (Isordil) 30 mg TID PO Last administered on 04/16/18at 08:49; Start 04/14/18 at 16:00; Stop 04/16/18 at 10:13; Status DC Isosorbide Dinitrate (Isordil) 30 mg TID PO Last administered on 05/14/18at 17:46; Start 05/03/18 at 09:00 Lactated Ringer's 1,000 ml @ 50 mls/hr Q20H IV ; Start 04/19/18 at 18:00; Stop 04/19/18 at 19:00; Status DC Lidocaine (Lidoderm Patch) 1 patch DAILY TD Last administered on 05/14/18at 09:08; Start 04/29/18 at 09:00 Lidocaine HCl (Lidocaine 5% Oint) back DAILY TOP Last administered on 05/14/18at 09:07; Start 04/18/18 at 09:00 Menthol/Methyl Salicylate (Bengay Cream) 1 dose ASDIRECTED PRN TOP PAIN Last administered on 04/26/18at 00:26; Start 04/16/18 at 10:30 Mineral Oil (Fleet Oil Retention Enema) DAILYPRN PRN UT CONSTIPATION Last administered on 05/08/18at 17:05; Start 05/08/18 at 08:30 Miscellaneous (Unresolved Clarification Entry) SEE LABEL COMMENTS DAILY XX Last administered on 05/13/18at 12:32; Start 05/13/18 at 09:00; Stop 05/13/18 at 12:47; Status DC Miscellaneous (Unresolved Clarification Entry) SEE LABEL COMMENTS DAILY XX ; Start 04/30/18 at 09:00; Stop 04/30/18 at 13:44; Status DC Miscellaneous (Unresolved Clarification Entry) SEE LABEL COMMENTS DAILY XX ; Start 04/30/18 at 09:00; Stop 05/01/18 at 07:20; Status DC Miscellaneous (Unresolved Clarification Entry) SEE LABEL COMMENTS DAILY XX ; Start 05/01/18 at 09:00; Stop 05/01/18 at 11:04; Status DC Morphine Sulfate (Morphine Sulfate Inj) 2 mg Q3HP PRN IV PAIN Last administered on 05/12/18at 12:28; Start 04/18/18 at 11:15; Stop 05/12/18 at 17:25; Status DC Morphine Sulfate (Msir) 15 mg Q8HP PRN PO SEVERE PAIN (PS 8-10); Start 05/12/18 at 17:30 Multivitamins (Theragram-M) 1 tab DAILY PO Last administered on 05/14/18at 09:08; Start 04/15/18 at 09:00 Nitroglycerin (Nitrostat (1/ 150)) 0.4 mg ASDIRECTED PRN SL CHEST PAIN; Start 04/14/18 at 14:00 Non-Formulary Medication ( See Comment Field Below ) REMOVE LIDODERM PATCH DAILY@ XX ; Start 04/28/18 at 21:00; Stop 04/28/18 at 21:00; Status DC Non-Formulary Medication ( See Comment Field Below ) REMOVE LIDODERM PATCH DAILY@21 XX Last administered on 05/13/18at 21:00; Start 04/28/18 at 21:00 Nystatin (Mycostatin Powder, Nystop) TO GROIN FOLDS BID TOP Last administered on 05/14/18at 09:13; Start 05/02/18 at 09:00 Ondansetron HCl (ZOFRAN INJection) 4 mg Q4HP PRN IV NAUSEA OR VOMITING; Start 04/19/18 at 18:00; Stop 04/19/18 at 19:00; Status DC Ondansetron HCl (ZOFRAN INJection) 4 mg Q6HP PRN IV NAUSEA OR VOMITING Last administered on 05/01/18at 09:53; Start 04/14/18 at 14:00 Pantoprazole Sodium (Protonix) 40 mg DAILY PO Last administered on 05/07/18at 08:20; Start 04/27/18 at 09:00; Stop 05/08/18 at 08:28; Status DC Pantoprazole Sodium (Protonix) 40 mg Q12H IV Last administered on 05/14/18at 0 9:06; Start 05/08/18 at 09:00 Polyethylene Glycol (Miralax) 1 pkt BID PO Last administered on 05/14/18at 09:06; Start 05/08/18 at 09:00 Polyethylene Glycol (Miralax) 1 pkt DAILY PO Last administered on 04/27/18at 09:58; Start 04/23/18 at 10:45; Stop 04/29/18 at 07:57; Status DC Polyethylene Glycol (Miralax) 1 pkt DAILY PRN PO constipation; Start 04/29/18 at 08:00; Stop 05/06/18 at 07:59; Status DC Potassium Chloride (Micro-K Extencaps) 20 meq BID PO Last administered on 05/14/18at 09:11; Start 05/02/18 at 09:00 Sacubitril/ Valsartan (Entresto 24-26 Mg) 1 tab BID PO Last administered on 05/02/18at 21:12; Start 05/01/18 at 09:00; Stop 05/03/18 at 07:59; Status DC Sacubitril/ Valsartan (Entresto 24-26 Mg) 2 tab BID PO Last administered on 05/14/18at 09:08; Start 05/03/18 at 09:00 Sacubitril/ Valsartan (Entresto 49-51 Mg) 1 tab BID PO Last administered on 04/21/18at 09:54; Start 04/15/18 at 09:00; Stop 04/21/18 at 18:46; Status DC Senna/Docusate Sodium (Senokot S) 1 tab BID PO Last administered on 04/23/18at 08:20; Start 04/17/18 at 09:00; Stop 04/23/18 at 10:37; Status DC Senna/Docusate Sodium (Senokot S) 2 tab BID PO Last administered on 04/27/18at 09:58; Start 04/23/18 at 21:00; Stop 04/28/18 at 16:48; Status DC Senna/Docusate Sodium (Senokot S) 2 tab BID PO Last administered on 05/14/18at 09:08; Start 05/07/18 at 09:00 Sodium Chloride 500 ml @ 40 mls/hr [id number] IV Last administered on 04/26/18at 02:15; Start 04/26/18 at 01:45; Stop 04/26/18 at 14:14; Status DC Sodium Chloride 1,000 ml @ 40 mls/hr Q24H IV Last administered on 04/23/18at 11:43; Start 04/23/18 at 11:30; Stop 04/23/18 at 23:59; Status DC Sodium Chloride 1,000 ml @ 50 mls/hr Q20H IV Last administered on 04/14/18at 16:45; Start 04/14/18 at 14:00; Stop 04/15/18 at 01:59; Status DC Sodium Chloride 1,000 ml @ 60 mls/hr [id number] IV Last administered on 04/24/18at 10:47; Start 04/24/18 at 09:15; Stop 04/25/18 at 01:54; Status DC Sodium Chloride 1,000 ml @ 70 mls/hr [id number] IV Last administered on 04/19/18at 15:08; Start 04/19/18 at 14:30; Stop 04/20/18 at 04:47; Status DC Sodium Chloride 1,000 ml @ 75 mls/hr [id number] IV Last administered on 04/21/18at 09:45; Start 04/21/18 at 08:15; Stop 04/21/18 at 14:54; Status DC Sodium Chloride 1,000 ml @ 75 mls/hr [id number] IV Last administered on 04/22/18at 21:47; Start 04/22/18 at 21:45; Stop 04/23/18 at 11:04; Status DC Sodium Chloride 1,000 ml @ 100 mls/hr Q10H IV Last administered on 04/19/18at 09:41; Start 04/19/18 at 08:15; Stop 04/19/18 at 09:14; Status DC Sodium Chloride (Saline Lock Flush) 2 ml ASDIRECTED PRN IV SEE LABEL COMMENTS Last administered on 04/24/18at 07:47; Start 04/15/18 at 17:30; Stop 04/29/18 at 21:15; Status DC Sodium Chloride (Saline Lock Flush) 2 ml SLF IV Last administered on 04/29/18at 06:46; Start 04/15/18 at 22:00; Stop 04/29/18 at 21:15; Status DC Sodium Chloride (Saline Lock Flush) 10 ML PICC IV Last administered on 05/14/18at 17:46; Start 04/25/18 at 18:00 Sodium Chloride (Saline Lock Flush) 10ML ASDIRECTED PRN IV SEE LABEL COMMENTS Last administered on 05/10/18at 21:48; Start 04/25/18 at 17:00 Spironolactone (Aldactone) 12.5 mg DAILY PO Last administered on 04/18/18at 08:37; Start 04/15/18 at 09:00; Stop 04/19/18 at 14:35; Status DC Sucralfate (Carafate Suspension) 1 gm ACHS PO Last administered on 05/14/18at 17:46; Start 05/01/18 at 12:00 Torsemide (Demadex) 20 mg BID@09,17 PO Last administered on 04/28/18at 08:37; Start 04/27/18 at 17:00; Stop 04/28/18 at 10:02; Status DC Torsemide (Demadex) 20 mg BID@09,17 PO Last administered on 05/05/18at 09:29; Start 04/30/18 at 17:00; Stop 05/05/18 at 12:31; Status DC Torsemide (Demadex) 20 mg DAILY PO Last administered on 04/18/18at 08:37; Start 04/15/18 at 09:00; Stop 04/19/18 at 08:16; Status DC Torsemide (Demadex) 20 mg DAILY PO Last administered on 05/14/18at 09:10; Star t 05/06/18 at 09:00 Tramadol HCl (Ultram) 50 mg Q6HP PRN PO MODERATE PAIN (PS 5-7) Last administered on 05/01/18at 13:55; Start 04/28/18 at 12:00; Stop 05/01/18 at 15:57; Status DC Tramadol HCl (Ultram) 50 mg Q8H PO ; Start 05/01/18 at 14:00; Stop 05/01/18 at 16:00; Status DC Tramadol HCl (Ultram) 50 mg Q8H PO Last administered on 05/14/18at 13:19; Start 05/01/18 at 22:00 Tramadol HCl (Ultram) 50 mg Q8HP PRN PO MODERATE PAIN (PS 5-7) Last administered on 04/28/18at 00:51; Start 04/16/18 at 12:00; Stop 04/28/18 at 11:58; Status DC Vancomycin HCl 1000 mg/IV Miscellaneous Supplies 1 each/ Dextrose 270 ml @ 270 mls/hr Q18H IV Last administered on 04/19/18at 00:36; Start 04/17/18 at 12:00; Stop 04/19/18 at 12:00; Status DC Allergies Coded Allergies: Sulfa Antibiotics (Verified Allergy, Intermediate, HIVES, DIZZINESS, 04/14/18) Oxycodone (Verified Adverse Reaction, Mild, Hallucinates, 04/14/18) ELBA BYERS MD May 14, 2018 18:46
[2018-05-14] MEDS: **NOTE PATIENT COMMENT** MISC XX SCH (21:00)
[2018-05-14 22:00] VITALS: BP 153/76
[2018-05-15] MEDS: IPRATROPIUM 0.5MG/ALBUTEROL 2.5MG INH SOL UD 3ML (DUONEB)(J7620) NEB SCH ×6 (03:39→20:00)
[2018-05-15 05:33] LABS: HEMATOCRIT 28.7 % (42.0-52.0); HEMOGLOBIN 8.7 g/dl (13.5-17.5); MEAN CORPUSCULAR HGB CONC 30.3 g/dl (32.0-36.5); MEAN CORPUSCULAR VOLUME 85.7 fl (80.0-96.0); PLATELET COUNT, AUTOMATED 129 10^3/uL (150-450); RED BLOOD COUNT 3.35 10^6/uL (4.30-6.10); WHITE BLOOD COUNT 4.3 10^3/uL (4.0-10.0)
[2018-05-15 05:44] LABS: C REACTIVE PROTEIN QUANTITATIV 1.45 MG/DL (0.00-0.30); CALCIUM LEVEL 7.6 MG/DL (8.8-10.2); CREATININE FOR GFR 1.5 MG/DL (0.70-1.30); GLOMERULAR FILTRATION RATE 48.8 (>42); POTASSIUM SERUM 4.2 MEQ/L (3.5-5.1)
[2018-05-15] MEDS: traMADol 50 MG TAB PO SCH ×3 (05:52→21:52)
[2018-05-15] MEDS: SODIUM CHLORIDE 0.9% INJ 10 ML SYR IV SCH ×2 (05:53→18:00)
[2018-05-15] MEDS: AMPICILLIN SOD 2 GM in D5W MINI-BAG PLUS 100 ML IV SCH ×3 (05:53→18:11)
[2018-05-15 06:00] VITALS: BP 122/80
[2018-05-15] MEDS: HumaLOG INSULIN (NovoLOG) PER UNIT SC SCH (07:30)
[2018-05-15] MEDS: SUCRALFATE SUSP 1GM/10ML UD PO SCH ×5 (07:30→21:49)
[2018-05-15] MEDS: SENOKOT S TAB PO SCH ×2 (08:15→21:53)
[2018-05-15] MEDS: ATORVASTATIN 20 MG TAB PO SCH (08:16)
[2018-05-15] MEDS: MIRALAX *UNIT DOSE* 17GM PACKET PO SCH ×2 (08:16→21:53)
[2018-05-15] MEDS: PANTOPRAZOLE 40MG INJ (PROTONIX) (C9113) IV SCH ×2 (08:16→21:53)
[2018-05-15] MEDS: CALCITRIOL 0.25 MCG CAP (S0169) PO SCH (08:16)
[2018-05-15] MEDS: ENTRESTO 24-26MG TABLET (SACUBITRIL/VALSARTAN) PO SCH ×2 (08:16→21:52)
[2018-05-15] MEDS: FEBUXOSTAT 40 MG TABLET (ULORIC) PO SCH (08:17)
[2018-05-15] MEDS: POTASSIUM CHLORIDE 10 MEQ SR TABLET PO SCH ×2 (08:17→21:53)
[2018-05-15] MEDS: FERROUS SULFATE 325MG TAB PO SCH ×2 (08:17→21:50)
[2018-05-15] MEDS: MULTIVITAMINS/MINERALS THERAP 1 TAB PO SCH (08:17)
[2018-05-15] MEDS: ISOSORBIDE DIN. (ISORDIL) 30 MG TAB PO SCH ×3 (08:25→21:50)
[2018-05-15] MEDS: CARVedilol 12.5 MG TAB PO SCH ×2 (08:26→21:51)
[2018-05-15] MEDS: ASCORBIC ACID 500 MG TAB PO SCH ×2 (08:26→21:51)
[2018-05-15] MEDS: ASPIRIN 81 MG ENTERIC TAB PO SCH (08:26)
[2018-05-15] MEDS: LIDOCAINE 5% (LIDODERM) PATCH TD SCH (08:27)
[2018-05-15] MEDS: NYSTATIN 100,000 UNITS/GM TOPICAL PWD 15 GM TOP SCH ×2 (08:28→21:54)
[2018-05-15] MEDS: LIDOCAINE 5% OINT 30 GM TOP SCH (08:29)
[2018-05-15] MEDS: LEVEMIR (INSULIN DETEMIR) 1 UNITS/0.01ML SC SCH ×3 (08:29→21:54)
[2018-05-15] MEDS: TORSEMIDE 20 MG TAB PO SCH (08:36)
[2018-05-15] MEDS: ACETAMINOPHEN TAB 650MG DOSE (2X325MG) PO PRN (11:11)
--- NOTE | 2018-05-15 11:30 | IPN ---
DATE: 05/15/2018 Connor is seen while rounding for the hospitalist today. He reports that he is stable with no change in his status. He was seen by psychiatry yesterday, Dr. Cunha. He denies any chest pain or shortness of breath, fever or chills. PHYSICAL EXAMINATION: Vital signs are stable. Afebrile. General Appearance: Resting comfortably in bed. Alert. Conversant. Lungs: Clear. Heart: Regular rhythm. Abdomen: Soft. Nontender. I did not check his decubitus today. 1+ peripheral edema. LABS: White count 4.3, hemoglobin 8.7, platelets 129. Sodium 146, potassium 4.2, BUN 51, creatinine 1.5, glucose 97. C-reactive protein is down to 1.45. Blood sugars were all normal. He has not received any insulin coverage in several days. A total of 2 units over the last five days. PLAN: At this point, we are going to stop his fingersticks with coverage. He has only received 2 units over five days. His basal insulin is controlling his blood sugars well. Will do twice a day fingersticks and reduce the burden on the nursing staff. The rest of the medical problems are stable and he is on IV ampicillin with an end date of 06/01/2018.
[2018-05-15 14:00] VITALS: BP 150/79
[2018-05-15] MEDS: **NOTE PATIENT COMMENT** MISC XX SCH (21:55)
[2018-05-15 22:00] VITALS: BP 138/72
[2018-05-16] MEDS: AMPICILLIN SOD 2 GM in D5W MINI-BAG PLUS 100 ML IV SCH ×5 (00:15→23:31)
[2018-05-16] MEDS: IPRATROPIUM 0.5MG/ALBUTEROL 2.5MG INH SOL UD 3ML (DUONEB)(J7620) NEB SCH ×3 (04:00→07:36)
[2018-05-16] MEDS: traMADol 50 MG TAB PO SCH ×4 (05:16→21:44)
[2018-05-16] MEDS: SODIUM CHLORIDE 0.9% INJ 10 ML SYR IV SCH ×2 (05:17→19:38)
[2018-05-16 05:47] LABS: HEMATOCRIT 30.2 % (42.0-52.0); MEAN CORPUSCULAR HEMOGLOBIN 25.4 pg (27.0-33.0); MEAN CORPUSCULAR HGB CONC 29.8 g/dl (32.0-36.5); MEAN CORPUSCULAR VOLUME 85.3 fl (80.0-96.0); PLATELET COUNT, AUTOMATED 133 10^3/uL (150-450); RED BLOOD COUNT 3.54 10^6/uL (4.30-6.10); WHITE BLOOD COUNT 5.6 10^3/uL (4.0-10.0)
[2018-05-16 06:00] VITALS: BP 148/72
[2018-05-16 06:07] LABS: CALCIUM LEVEL 7.6 MG/DL (8.8-10.2); CREATININE FOR GFR 1.53 MG/DL (0.70-1.30); GLOMERULAR FILTRATION RATE 47.7 (>42); POTASSIUM SERUM 4.4 MEQ/L (3.5-5.1)
[2018-05-16] MEDS: ENTRESTO 24-26MG TABLET (SACUBITRIL/VALSARTAN) PO SCH ×3 (09:23→21:43)
[2018-05-16] MEDS: ASPIRIN 81 MG ENTERIC TAB PO SCH (09:23)
[2018-05-16] MEDS: ATORVASTATIN 20 MG TAB PO SCH (09:23)
[2018-05-16] MEDS: TORSEMIDE 20 MG TAB PO SCH (09:23)
[2018-05-16] MEDS: ISOSORBIDE DIN. (ISORDIL) 30 MG TAB PO SCH ×4 (09:23→21:46)
[2018-05-16] MEDS: FEBUXOSTAT 40 MG TABLET (ULORIC) PO SCH (09:24)
[2018-05-16] MEDS: POTASSIUM CHLORIDE 10 MEQ SR TABLET PO SCH ×3 (09:24→21:46)
[2018-05-16] MEDS: MULTIVITAMINS/MINERALS THERAP 1 TAB PO SCH (09:24)
[2018-05-16] MEDS: CARVedilol 12.5 MG TAB PO SCH ×3 (09:24→21:44)
[2018-05-16] MEDS: ASCORBIC ACID 500 MG TAB PO SCH ×3 (09:24→21:45)
[2018-05-16] MEDS: FERROUS SULFATE 325MG TAB PO SCH ×3 (09:24→21:46)
[2018-05-16] MEDS: SENOKOT S TAB PO SCH ×3 (09:24→21:42)
[2018-05-16] MEDS: NYSTATIN 100,000 UNITS/GM TOPICAL PWD 15 GM TOP SCH ×2 (09:25→21:47)
[2018-05-16] MEDS: PANTOPRAZOLE 40MG INJ (PROTONIX) (C9113) IV SCH ×3 (09:25→21:42)
[2018-05-16] MEDS: LIDOCAINE 5% (LIDODERM) PATCH TD SCH (09:25)
[2018-05-16] MEDS: SUCRALFATE SUSP 1GM/10ML UD PO SCH ×5 (09:25→21:42)
[2018-05-16] MEDS: LEVEMIR (INSULIN DETEMIR) 1 UNITS/0.01ML SC SCH ×3 (09:25→21:47)
[2018-05-16] MEDS: MIRALAX *UNIT DOSE* 17GM PACKET PO SCH ×2 (09:25→21:43)
[2018-05-16] MEDS: LIDOCAINE 5% OINT 30 GM TOP SCH (09:26)
[2018-05-16] MEDS: MORPHINE 30 MG TAB **MSIR PO PRN (09:28)
[2018-05-16] MEDS ORDERED: ALBUTEROL SULFATE 2.5 MG/0.5 ML INH NEB SOLN NEB PRN (10:45)
[2018-05-16 14:00] VITALS: BP 138/64
--- NOTE | 2018-05-16 17:25 | IPN ---
DATE: 05/16/2018 Mr. Dixon has no complaints other than back pain. It is limiting his activity. He has no nausea, vomiting, diarrhea. No fever or chills. On physical exam, temperature is 98.6, pulse 100, respirations 20, blood [id number], oxygen saturation 93% on 2 liters nasal cannula. Heart: Normal S1, S2 with a systolic ejection murmur 2/6, unchanged. Lungs are clear. No wheezes, rales, or rhonchi. Abdomen is soft, nontender. No hepatosplenomegaly. Extremities: No edema. Dry scaly toes. He has a Coban wraps on both legs for compression. Back was not examined. LABORATORY DATA: White count 5.6, hemoglobin 9, hematocrit 30.2, platelets 133. Sodium 146, potassium 4.4, chloride 111, bicarbonate 29, BUN 20, creatinine 1.53, glucose 118, calcium 7.6, CRP 1.9. IMPRESSION: 1. Enterococcus (E) faecalis bacteremia with severe back pain and presumptive discitis, although not seen on imaging. Will continue with IV ampicillin for a total of 6 weeks from negative culture. End of therapy is planned to be on May 31, 2018. Transesophageal echocardiogram ([facility]) was negative for vegetation. 2. History of colon cancer, status post resection in November of 2017. 3. Congestive heart failure, chronic systolic and diastolic - on torsemide, stable. PLAN: Continue IV ampicillin 2 grams every 6 hours. Will increase his dose of tramadol to four times a day instead of every 8 hours to allow him better physical therapy. Consider adding long-acting narcotics if the patient remains in a significant amount of pain as he has not been able to do much in terms of physical therapy.
--- NOTE | 2018-05-16 17:36 | IPN ---
DATE: 05/16/2018 Patient seen and examined. Continues to report back pain. Denies any chest pain, pressure, or discomfort. Denies any fevers or chills. Currently comfortable. No appetite. VITAL SIGNS: Temperature 98.6, pulse 100, respirations 20, blood pressure 138/64, pulse oximetry 93% on 2 liters nasal cannula. LABORATORY DATA: WBC 5.6, hemoglobin and hematocrit 9/30.2, platelets 133. Chemistry: Sodium 146, potassium 4.4, chloride 111, bicarbonate 29, BUN 20, creatinine 1.53. PHYSICAL EXAMINATION: GENERAL: Patient in no acute distress, comfortable. HEENT: Normocephalic, atraumatic. Extraocular muscles intact. CARDIAC: Irregular, S1, S2. No tachycardia. PULMONARY: Decreased breath sounds bilateral. ABDOMEN: Soft and nontender. Positive bowel sounds. EXTREMITIES: Back: Stage II sacral decubitus ulcer. Trace to 1+ bilateral lower extremity edema. Dorsalis pedis (DP)/posterior tibialis (PT) pulses intact. Bandages intact, bilateral lower extremities. ASSESSMENT AND PLAN: This is a 72-year-old male patient with underlying medical history of atrial fibrillation, congestive heart failure (CHF), diastolic and systolic dysfunction, ejection fraction (EF) of 35-40%., coronary artery disease, hypertension, diabetes, chronic kidney disease (CKD), stage III, gout, lumbar degenerative disc disease, spinal stenosis, radiculopathy, history of colon cancer, history of skin cancer, mitral insufficiency, iron deficiency anemia, dyslipidemia, who presented with generalized weakness and diarrhea, found to have Enterococcus faecalis bacteremia. 1. Enterococcus faecalis bacteremia. Possibly discitis versus colitis versus chronic cholecystitis. Infectious disease (ID) consult appreciated. Continue ampicillin. End day 06/01/2017. Followup complete blood count (CBC), C-reactive protein, erythrocyte sedimentation rate (ESR). Transesophageal echocardiogram ([facility]) negative for vegetation. Bone scan negative. Repeat echo appreciated. Ampicillin for 6 weeks. Further recommendations as per infectious disease (ID). 2. Acute on chronic systolic and diastolic congestive heart failure. Off dobutamine drip. Continue torsemide, Entresto. Eliquis on hold given patient has acute blood loss anemia. Statin, Coreg, Isordil. Cardiology consultation appreciated. Continue statin. Continue aspirin. 3. Acute on chronic renal disease. Currently at baseline. Baseline CKD, stage III. Likely acute worsening kidney function due to nephrotoxic medication, gentamicin, Entresto, and bacteremia. Nephrology consultation appreciated. Will continue to monitor. 4. Acute blood loss anemia secondary to gastrointestinal (GI) loss. 5. Chronic anemia secondary to anemia of chronic disease. Patient was transfused. Iron, vitamin C. Gastrointestinal (GI) consulted. Unable to tolerate esophagogastroduodenoscopy (EGD), and patient has refused further intervention. Eliquis on hold after discussion with Dr. Andrew, but would recommend continued aspirin. 6. Chronic back pain. CT spine appreciated. Discitis versus degenerative disc disease and spinal stenosis. Continue current pain regimen. Pain management consulted. 7. Chronic atrial fibrillation. Eliquis on hold secondary to GI bleed. Continue beta blockers. 8. Diabetes mellitus. Continue basal insulin. No need for mealtime, given patient has not had any elevated blood glucose or blood sugar level. Diarrhea resolved. 9. Coronary artery disease. Continue aspirin, beta masood, Entresto, statin. Diuresis with torsemide. Continue Isordil. Cardiology consulted. 10. Severe deconditioning. Physical therapy. 11. Stage II sacral decubitus ulcer. Pressure ulcer precautions. 12. Deep vein thrombosis (DVT) prophylaxis. Thromboembolic deterrents (TEDs) and sequentials. Eliquis on hold given GI bleed. DISPOSITION: Poor long-term prognosis. Pending short-term rehabilitation. Severe deconditioning. Continue physical therapy. Will need to receive antibiotics, ampicillin, until 06/01/2018.
[2018-05-16] MEDS: **NOTE PATIENT COMMENT** MISC XX SCH (21:48)
[2018-05-16 22:00] VITALS: BP 156/85
[2018-05-17] MEDS: AMPICILLIN SOD 2 GM in D5W MINI-BAG PLUS 100 ML IV SCH ×4 (05:58→23:48)
[2018-05-17] MEDS: SODIUM CHLORIDE 0.9% INJ 10 ML SYR IV SCH ×2 (05:58→13:54)
[2018-05-17 06:00] VITALS: BP 125/78
[2018-05-17 06:16] LABS: HEMATOCRIT 30.4 % (42.0-52.0); HEMOGLOBIN 9.3 g/dl (13.5-17.5); MEAN CORPUSCULAR HEMOGLOBIN 25.8 pg (27.0-33.0); MEAN CORPUSCULAR HGB CONC 30.6 g/dl (32.0-36.5); MEAN CORPUSCULAR VOLUME 84.4 fl (80.0-96.0); PLATELET COUNT, AUTOMATED 148 10^3/uL (150-450); WHITE BLOOD COUNT 5.6 10^3/uL (4.0-10.0)
[2018-05-17 06:34] LABS: C REACTIVE PROTEIN QUANTITATIV 2.49 MG/DL (0.00-0.30); MAGNESIUM LEVEL 1.9 MG/DL (1.8-2.4)
[2018-05-17 06:41] LABS: CALCIUM LEVEL 7.8 MG/DL (8.8-10.2); CREATININE FOR GFR 1.57 MG/DL (0.70-1.30); GLOMERULAR FILTRATION RATE 46.3 (>42)
[2018-05-17] MEDS: ENTRESTO 24-26MG TABLET (SACUBITRIL/VALSARTAN) PO SCH ×3 (08:58→21:49)
[2018-05-17] MEDS: MULTIVITAMINS/MINERALS THERAP 1 TAB PO SCH ×2 (08:58→09:00)
[2018-05-17] MEDS: POTASSIUM CHLORIDE 10 MEQ SR TABLET PO SCH ×3 (08:58→21:00)
[2018-05-17] MEDS: PANTOPRAZOLE 40MG INJ (PROTONIX) (C9113) IV SCH ×2 (08:58→21:50)
[2018-05-17] MEDS: SENOKOT S TAB PO SCH ×3 (08:58→21:00)
[2018-05-17] MEDS: traMADol 50 MG TAB PO SCH ×4 (08:58→21:48)
[2018-05-17] MEDS: ASCORBIC ACID 500 MG TAB PO SCH ×3 (08:58→21:49)
[2018-05-17] MEDS: CARVedilol 12.5 MG TAB PO SCH ×3 (08:59→21:49)
[2018-05-17] MEDS: FERROUS SULFATE 325MG TAB PO SCH ×3 (09:00→21:00)
[2018-05-17] MEDS: ATORVASTATIN 20 MG TAB PO SCH ×2 (09:00→09:02)
[2018-05-17] MEDS: MIRALAX *UNIT DOSE* 17GM PACKET PO SCH ×2 (09:00→21:00)
[2018-05-17] MEDS: FEBUXOSTAT 40 MG TABLET (ULORIC) PO SCH ×2 (09:00→09:02)
[2018-05-17] MEDS: EUCERIN 120GM CREAM TOP SCH ×2 (09:00→21:00)
[2018-05-17] MEDS: ISOSORBIDE DIN. (ISORDIL) 30 MG TAB PO SCH ×4 (09:00→21:49)
[2018-05-17] MEDS: ASPIRIN 81 MG ENTERIC TAB PO SCH ×2 (09:00→09:03)
[2018-05-17] MEDS: SUCRALFATE SUSP 1GM/10ML UD PO SCH ×4 (09:02→21:00)
[2018-05-17] MEDS: CALCITRIOL 0.25 MCG CAP (S0169) PO SCH (09:02)
[2018-05-17] MEDS: LEVEMIR (INSULIN DETEMIR) 1 UNITS/0.01ML SC SCH ×2 (09:03→21:00)
[2018-05-17] MEDS: LIDOCAINE 5% OINT 30 GM TOP SCH (09:04)
[2018-05-17] MEDS: LIDOCAINE 5% (LIDODERM) PATCH TD SCH (09:06)
[2018-05-17] MEDS: NYSTATIN 100,000 UNITS/GM TOPICAL PWD 15 GM TOP SCH ×2 (09:08→21:00)
[2018-05-17] MEDS: MORPHINE 30 MG TAB **MSIR PO PRN (13:54)
[2018-05-17 14:00] VITALS: BP 156/84
--- NOTE | 2018-05-17 18:06 | IPNPDOC ---
Text Note Date of Service The patient was seen on 05/17/18. NOTE Patient seen and examined. Continues to report back pain. Denies any chest pain, pressure, or discomfort. Denies any fevers or chills. Currently comfortable. PHYSICAL EXAMINATION: GENERAL: Patient in no acute distress, comfortable. HEENT: Normocephalic, atraumatic. PERRL CARDIAC: Irregular, S1, S2. PULMONARY: Decreased breath sounds bilateral. ABDOMEN: Soft and nontender. Positive bowel sounds. EXTREMITIES: Back: Stage II sacral decubitus ulcer. Trace to 1+ bilateral lower extremity edema. Dorsalis pedis (DP)/posterior tibialis (PT) pulses intact. Bandages intact, bilateral lower extremities. ASSESSMENT AND PLAN: This is a 72-year-old male patient with underlying medical history of atrial fibrillation, congestive heart failure (CHF), diastolic and systolic dysfunction, ejection fraction (EF) of 35-40%., coronary artery disease, hypertension, diabetes, chronic kidney disease (CKD), stage III, gout, lumbar degenerative disc disease, spinal stenosis, radiculopathy, history of colon cancer, history of skin cancer, mitral insufficiency, iron deficiency anemia, dyslipidemia, who presented with generalized weakness and diarrhea, found to have Enterococcus faecalis bacteremia. 1. Enterococcus faecalis bacteremia. Possibly discitis versus colitis versus chronic cholecystitis. Infectious disease (ID) consult appreciated. Continue ampicillin. End day 06/01/2017. Followup complete blood count (CBC), C-reactive protein, erythrocyte sedimentation rate (ESR). Transesophageal echocardiogram ([facility]) negative for vegetation. Bone scan negative. Repeat echo appreciated. Ampicillin for 6 weeks. Further recommendations as per infectious disease (ID). 2. Acute on chronic systolic and diastolic congestive heart failure. Off dobutamine drip. Continue torsemide, Entresto. Eliquis on hold given patient has acute blood loss anemia. Statin, Coreg, Isordil. Cardiology consultation appreciated. Continue statin. Continue aspirin. 3. Acute on chronic renal disease. Currently at baseline. Baseline CKD, stage III. Likely acute worsening kidney function due to nephrotoxic medication, gentamicin, Entresto, and bacteremia. Nephrology consultation appreciated. Will continue to monitor. 4. Acute blood loss anemia secondary to gastrointestinal (GI) loss. 5. Chronic anemia secondary to anemia of chronic disease. Patient was transfused. Iron, vitamin C. Gastrointestinal (GI) consulted. Unable to tolerate esophagogastroduodenoscopy (EGD), and patient has refused further intervention. Eliquis on hold after discussion with Dr. Andrew, but would recommend continued aspirin. monitor HH 6. Chronic back pain. CT spine appreciated. Discitis versus degenerative disc disease and spinal stenosis. Continue current pain regimen. Pain management consulted. 7. Chronic atrial fibrillation. Eliquis on hold secondary to GI bleed. Continue beta blockers. 8. Diabetes mellitus. Continue basal insulin. No need for mealtime, given patient has not had any elevated blood glucose or blood sugar level. 9. Diarrhea resolved. 10. Coronary artery disease. Continue aspirin, beta masood, Entresto, statin. Diuresis with torsemide. Continue Isordil. Cardiology consulted. 10. Severe deconditioning. Physical therapy. 11. Stage II sacral decubitus ulcer. Pressure ulcer precautions. Wound care 12. Deep vein thrombosis (DVT) prophylaxis. Thromboembolic deterrents (TEDs) and sequentials. Eliquis on hold given GI bleed. DISPOSITION: Poor long-term prognosis. Pending short-term rehabilitation. Severe deconditioning. Continue physical therapy. Will need to receive antibiotics, ampicillin, until 06/01/2018. VS,Fishbone, I+O VS, Fishbone, I+O Laboratory Tests 05/17/18 05:56 Red Blood Count 3.60 L, Mean Corpuscular Volume 84.4, Mean Corpuscular Hemoglobin 25.8 L, Mean Corpuscular Hemoglobin Concent 30.6 L, Red Cell Dis tribution Width 17.7 H, Calcium Level 7.8 L Vital Signs Date Time Temp Pulse Resp B/P (MAP) Pulse Ox O2 Delivery O2 Flow Rate FiO2 05/17/18 14:24 18 05/17/18 14:00 98.2 102 156/84 (108) 93 Nasal Cannula 1.0 I&O- Last 24 Hours up to 6 AM 05/17/18 06:00 Intake Total 500 ml Output Total 0 ml Balance 500 ml DARY LUNDBERG MD May 17, 2018 18:06
[2018-05-17] MEDS: **NOTE PATIENT COMMENT** MISC XX SCH (21:00)
[2018-05-17] MEDS: SODIUM CHLORIDE 0.9% INJ 10 ML SYR IV PRN (21:50)
[2018-05-17 22:00] VITALS: BP 152/84
[2018-05-18] MEDS: SODIUM CHLORIDE 0.9% INJ 10 ML SYR IV PRN (01:15)
[2018-05-18] MEDS: AMPICILLIN SOD 2 GM in D5W MINI-BAG PLUS 100 ML IV SCH ×3 (05:52→18:22)
[2018-05-18] MEDS: SODIUM CHLORIDE 0.9% INJ 10 ML SYR IV SCH ×2 (05:53→18:23)
[2018-05-18 06:00] VITALS: BP 155/79
[2018-05-18 06:17] LABS: HEMATOCRIT 29.4 % (42.0-52.0); HEMOGLOBIN 8.8 g/dl (13.5-17.5); MEAN CORPUSCULAR HEMOGLOBIN 25.4 pg (27.0-33.0); MEAN CORPUSCULAR HGB CONC 29.9 g/dl (32.0-36.5); MEAN CORPUSCULAR VOLUME 84.7 fl (80.0-96.0); PLATELET COUNT, AUTOMATED 131 10^3/uL (150-450); RED BLOOD COUNT 3.47 10^6/uL (4.30-6.10); WHITE BLOOD COUNT 4.7 10^3/uL (4.0-10.0)
[2018-05-18 06:38] LABS: CALCIUM LEVEL 7.6 MG/DL (8.8-10.2); CREATININE FOR GFR 1.66 MG/DL (0.70-1.30); GLOMERULAR FILTRATION RATE 43.4 (>42); MAGNESIUM LEVEL 1.9 MG/DL (1.8-2.4); POTASSIUM SERUM 3.8 MEQ/L (3.5-5.1)
[2018-05-18] MEDS: SUCRALFATE SUSP 1GM/10ML UD PO SCH ×4 (07:30→21:00)
[2018-05-18] MEDS ORDERED: TORSEMIDE 20 MG TAB PO ONE (08:00)
[2018-05-18] MEDS: **NOTE PATIENT COMMENT** MISC XX SCH (09:00)
[2018-05-18] MEDS ORDERED: TORSEMIDE 20 MG TAB PO SCH (09:00)
[2018-05-18] MEDS: MIRALAX *UNIT DOSE* 17GM PACKET PO SCH ×2 (09:00→21:00)
[2018-05-18] MEDS: traMADol 50 MG TAB PO SCH ×4 (09:48→22:18)
[2018-05-18] MEDS: ASPIRIN 81 MG ENTERIC TAB PO SCH (09:48)
[2018-05-18] MEDS: ATORVASTATIN 20 MG TAB PO SCH (09:48)
[2018-05-18] MEDS: ASCORBIC ACID 500 MG TAB PO SCH ×2 (09:49→22:18)
[2018-05-18] MEDS: LIDOCAINE 5% OINT 30 GM TOP SCH (09:50)
[2018-05-18] MEDS: EUCERIN 120GM CREAM TOP SCH ×2 (09:50→21:00)
[2018-05-18] MEDS: NYSTATIN 100,000 UNITS/GM TOPICAL PWD 15 GM TOP SCH ×2 (09:51→23:00)
[2018-05-18] MEDS: FEBUXOSTAT 40 MG TABLET (ULORIC) PO SCH (09:54)
[2018-05-18] MEDS: FERROUS SULFATE 325MG TAB PO SCH ×2 (09:54→21:00)
[2018-05-18] MEDS: SENOKOT S TAB PO SCH ×2 (09:54→21:00)
[2018-05-18] MEDS: CARVedilol 12.5 MG TAB PO SCH ×2 (09:54→22:20)
[2018-05-18] MEDS: LEVEMIR (INSULIN DETEMIR) 1 UNITS/0.01ML SC SCH ×2 (09:55→22:25)
[2018-05-18] MEDS: MULTIVITAMINS/MINERALS THERAP 1 TAB PO SCH (10:03)
[2018-05-18] MEDS: ISOSORBIDE DIN. (ISORDIL) 30 MG TAB PO SCH ×3 (10:03→22:20)
[2018-05-18] MEDS: PANTOPRAZOLE 40MG TAB (PROTONIX) PO SCH (10:03)
[2018-05-18] MEDS: POTASSIUM CHLORIDE 10 MEQ SR TABLET PO SCH ×2 (10:04→21:00)
[2018-05-18] MEDS: ENTRESTO 24-26MG TABLET (SACUBITRIL/VALSARTAN) PO SCH ×2 (10:04→22:17)
--- NOTE | 2018-05-18 13:22 | IPNPDOC ---
Text Note Date of Service The patient was seen on 05/18/18. NOTE Patient seen and examined. Sleeping. Continues to report mild back pain. Denies any chest pain, pressure, or discomfort. Denies any fevers or chills. Currently comfortable. PHYSICAL EXAMINATION: GENERAL: Patient in no acute distress, comfortable. HEENT: Normocephalic, atraumatic. PERRL CARDIAC: Irregular, S1, S2. PULMONARY: Decreased breath sounds bilateral. ABDOMEN: Soft and nontender. Positive bowel sounds. EXTREMITIES: Back: Stage II sacral decubitus ulcer. Trace to 1+ bilateral lower extremity edema. Dorsalis pedis (DP)/posterior tibialis (PT) pulses intact. Bandages intact, bilateral lower extremities. ASSESSMENT AND PLAN: This is a 72-year-old male patient with underlying medical history of atrial fibrillation, congestive heart failure (CHF), diastolic and systolic dysfunction, ejection fraction (EF) of 35-40%., coronary artery disease, hypertension, diabetes, chronic kidney disease (CKD), stage III, gout, lumbar degenerative disc disease, spinal stenosis, radiculopathy, history of colon cancer, history of skin cancer, mitral insufficiency, iron deficiency anemia, dyslipidemia, who presented with generalized weakness and diarrhea, found to have Enterococcus faecalis bacteremia. 1. Enterococcus faecalis bacteremia. Possibly discitis versus colitis versus chronic cholecystitis. Infectious disease (ID) consult appreciated. Continue ampicillin. End day 06/01/2017. Followup complete blood count (CBC), C-reactive protein, erythrocyte sedimentation rate (ESR). Transesophageal echocardiogram ([facility]) negative for vegetation. Bone scan negative. Repeat echo appreciated. Ampicillin for 6 weeks. Further recommendations as per infectious disease (ID). 2. Acute on chronic systolic and diastolic congestive heart failure. Off dobutamine drip. Continue torsemide, Entresto. Eliquis on hold given patient has acute blood loss anemia. Statin, Coreg, Isordil. Cardiology consultation appreciated. Continue statin. Continue aspirin. 3. Acute on chronic renal disease. Currently at baseline. Baseline CKD, stage III. Likely acute worsening kidney function due to nephrotoxic medication, gentamicin, Entresto, and bacteremia. Nephrology consultation appreciated. Will continue to monitor. 4. Acute blood loss anemia secondary to gastrointestinal (GI) loss. 5. Chronic anemia secondary to anemia of chronic disease. Patient was transfused. Iron, vitamin C. Gastrointestinal (GI) consulted. Unable to tolerate esophagogastroduodenoscopy (EGD), and patient has refused further intervention. Eliquis on hold after discussion with Dr. Andrew, but would recommend continued aspirin. monitor HH 6. Chronic back pain. CT spine appreciated. Discitis versus degenerative disc disease and spinal stenosis. Continue current pain regimen. Pain management consulted. 7. Chronic atrial fibrillation. Eliquis on hold secondary to GI bleed. Continue beta blockers. 8. Diabetes mellitus. Continue basal insulin. No need for mealtime, given patient has not had any elevated blood glucose or blood sugar level. 9. Diarrhea resolved. 10. Coronary artery disease. Continue aspirin, beta masood, Entresto, statin. Diuresis with torsemide. Continue Isordil. Cardiology consulted. 10. Severe deconditioning. Physical therapy. 11. Stage II sacral decubitus ulcer. Pressure ulcer precautions. Wound care 12. Deep vein thrombosis (DVT) prophylaxis. Thromboembolic deterrents (TEDs) and sequentials. Eliquis on hold given GI bleed. DISPOSITION: Poor long-term prognosis. Pending short-term rehabilitation. Severe deconditioning. Continue physical therapy. Will need to receive antibiotics, ampicillin, until 06/01/2018. VS,Fishbone, I+O VS, Fishbone, I+O Laboratory Tests 05/18/18 05:52 Red Blood Count 3.47 L, Mean Corpuscular Volume 84.7, Mean Corpuscular Hemoglobin 25.4 L, Mean Corpuscular Hemoglobin Concent 29.9 L, Red Cell Distribution Width 17.5 H, Calcium Level 7.6 L Vital Signs Date Time Temp Pulse Resp B/P (MAP) Pulse Ox O2 Delivery O2 Flow Rate FiO2 05/18/18 12:26 18 05/18/18 10:03 155/79 05/18/18 09:54 88 05/18/18 06:00 97.7 95 Nasal Cannula 2.0 I&O- Last 24 Hours up to 6 AM 05/18/18 06:00 Intake Total 913 ml Output Total 0 ml Balance 913 ml DARY LUNDBERG MD May 18, 2018 13:22
[2018-05-18 14:00] VITALS: BP 124/60
[2018-05-18 22:00] VITALS: BP 129/71
[2018-05-18] MEDS: LIDOCAINE 5% (LIDODERM) PATCH TD SCH (22:21)
[2018-05-19] MEDS: AMPICILLIN SOD 2 GM in D5W MINI-BAG PLUS 100 ML IV SCH ×5 (00:10→23:41)
[2018-05-19] MEDS: SODIUM CHLORIDE 0.9% INJ 10 ML SYR IV PRN (01:31)
[2018-05-19] MEDS: SODIUM CHLORIDE 0.9% INJ 10 ML SYR IV SCH ×2 (05:31→17:24)
[2018-05-19 05:49] LABS: HEMATOCRIT 29.1 % (42.0-52.0); HEMOGLOBIN 8.8 g/dl (13.5-17.5); MEAN CORPUSCULAR HEMOGLOBIN 25.6 pg (27.0-33.0); MEAN CORPUSCULAR HGB CONC 30.2 g/dl (32.0-36.5); MEAN CORPUSCULAR VOLUME 84.6 fl (80.0-96.0); PLATELET COUNT, AUTOMATED 139 10^3/uL (150-450); RED BLOOD COUNT 3.44 10^6/uL (4.30-6.10)
[2018-05-19 06:00] VITALS: BP 113/62
[2018-05-19 06:19] LABS: C REACTIVE PROTEIN QUANTITATIV 2.44 MG/DL (0.00-0.30); CALCIUM LEVEL 7.5 MG/DL (8.8-10.2); CREATININE FOR GFR 1.69 MG/DL (0.70-1.30); GLOMERULAR FILTRATION RATE 42.6 (>42); MAGNESIUM LEVEL 1.8 MG/DL (1.8-2.4); POTASSIUM SERUM 3.3 MEQ/L (3.5-5.1)
[2018-05-19] MEDS ORDERED: TORSEMIDE 20 MG TAB PO SCH (09:00)
[2018-05-19] MEDS: **NOTE PATIENT COMMENT** MISC XX SCH (09:00)
[2018-05-19] MEDS: SUCRALFATE SUSP 1GM/10ML UD PO SCH ×4 (09:01→21:00)
[2018-05-19] MEDS: ONDANSETRON 4MG/2ML VIAL (J2405) IV PRN (09:13)
[2018-05-19] MEDS ORDERED: ONDANSETRON 4 MG TAB (S0181) PO PRN (09:15)
[2018-05-19] MEDS: SENOKOT S TAB PO SCH ×2 (09:44→21:41)
[2018-05-19] MEDS: MULTIVITAMINS/MINERALS THERAP 1 TAB PO SCH (09:44)
[2018-05-19] MEDS: LEVEMIR (INSULIN DETEMIR) 1 UNITS/0.01ML SC SCH ×2 (09:44→21:42)
[2018-05-19] MEDS: ENTRESTO 24-26MG TABLET (SACUBITRIL/VALSARTAN) PO SCH ×2 (09:44→21:41)
[2018-05-19] MEDS: MIRALAX *UNIT DOSE* 17GM PACKET PO SCH ×2 (09:44→21:00)
[2018-05-19] MEDS: CALCITRIOL 0.25 MCG CAP (S0169) PO SCH (09:45)
[2018-05-19] MEDS: FEBUXOSTAT 40 MG TABLET (ULORIC) PO SCH (09:45)
[2018-05-19] MEDS: ASPIRIN 81 MG ENTERIC TAB PO SCH (09:45)
[2018-05-19] MEDS: POTASSIUM CHLORIDE 10 MEQ SR TABLET PO ONE ×2 (09:45→10:11)
[2018-05-19] MEDS: ATORVASTATIN 20 MG TAB PO SCH (09:46)
[2018-05-19] MEDS: PANTOPRAZOLE 40MG TAB (PROTONIX) PO SCH (09:46)
[2018-05-19] MEDS: POTASSIUM CHLORIDE 10 MEQ SR TABLET PO SCH ×3 (09:48→21:00)
[2018-05-19] MEDS: FERROUS SULFATE 325MG TAB PO SCH ×2 (09:50→21:42)
[2018-05-19] MEDS: ASCORBIC ACID 500 MG TAB PO SCH ×2 (09:50→21:41)
[2018-05-19] MEDS: traMADol 50 MG TAB PO SCH ×4 (09:50→21:41)
[2018-05-19] MEDS: ISOSORBIDE DIN. (ISORDIL) 30 MG TAB PO SCH ×3 (09:50→21:42)
[2018-05-19] MEDS: CARVedilol 12.5 MG TAB PO SCH ×2 (09:52→21:42)
[2018-05-19] MEDS: EUCERIN 120GM CREAM TOP SCH ×2 (09:53→21:43)
[2018-05-19] MEDS: LIDOCAINE 5% OINT 30 GM TOP SCH (09:53)
[2018-05-19] MEDS: NYSTATIN 100,000 UNITS/GM TOPICAL PWD 15 GM TOP SCH ×2 (09:54→21:43)
[2018-05-19 14:00] VITALS: BP 120/68
--- NOTE | 2018-05-19 18:25 | IPNPDOC ---
Text Note Date of Service The patient was seen on 05/19/18. NOTE Patient seen and examined. Continues to report mild back pain. Denies any chest pain, pressure, or discomfort. Denies any fevers or chills. Currently comfortable. not progressing with PT as much. PHYSICAL EXAMINATION: GENERAL: Patient in no acute distress, comfortable. HEENT: Normocephalic, atraumatic. PERRL CARDIAC: Irregular, S1, S2. PULMONARY: Decreased breath sounds bilateral. ABDOMEN: Soft and nontender. Positive bowel sounds. EXTREMITIES: Back: Stage II sacral decubitus ulcer. Trace bilateral lower extremity edema. Dorsalis pedis (DP)/posterior tibialis (PT) pulses intact. venous stasis skin change ASSESSMENT AND PLAN: This is a 72-year-old male patient with underlying medical history of atrial fibrillation, congestive heart failure (CHF), diastolic and systolic dysfunction, ejection fraction (EF) of 35-40%., coronary artery disease, hypertension, diabetes, chronic kidney disease (CKD), stage III, gout, lumbar degenerative disc disease, spinal stenosis, radiculopathy, history of colon cancer, history of skin cancer, mitral insufficiency, iron deficiency anemia, dyslipidemia, who presented with generalized weakness and diarrhea, found to have Enterococcus faecalis bacteremia. 1. Enterococcus faecalis bacteremia. Possibly discitis versus colitis versus chronic cholecystitis. Infectious disease (ID) consult appreciated. Continue ampicillin. End day 06/01/2017. Followup complete blood count (CBC), C-reactive protein, erythrocyte sedimentation rate (ESR). Transesophageal echocardiogram ([facility]) negative for vegetation. Bone scan negative. Repeat echo appreciated. Ampicillin for 6 weeks. Further recommendations as per infectious disease (ID). 2. Acute on chronic systolic and diastolic congestive heart failure. Off dobutamine drip. Continue torsemide, Entresto. Eliquis on hold given patient has acute blood loss anemia. Statin, Coreg, Isordil. Cardiology consultation appreciated. Continue statin. Continue aspirin. 3. Acute on chronic renal disease. Currently at baseline. Baseline CKD, stage III. Likely acute worsening kidney function due to nephrotoxic medication, gentamicin, Entresto, and bacteremia. Nephrology consultation appreciated. Will continue to monitor. 4. Acute blood loss anemia secondary to gastrointestinal (GI) loss. With chronic anemia secondary to anemia of chronic disease. Patient was transfused. Iron, vitamin C. Gastrointestinal (GI) consulted. Unable to tolerate esophagogastroduodenoscopy (EGD), and patient has refused further intervention. Eliquis on hold after discussion with Dr. Andrew, but would recommend continued aspirin. monitor HH 5. Chronic back pain. CT spine appreciated. Discitis versus degenerative disc disease and spinal stenosis. Continue current pain regimen. Pain management consulted. 6. Chronic atrial fibrillation. Eliquis on hold secondary to GI bleed. Continue beta blockers. 7. Diabetes mellitus. Continue basal insulin. No need for mealtime, given patient has not had any elevated blood glucose 8. Diarrhea resolved. 9. Coronary artery disease. Continue aspirin, beta masood, Entresto, statin. Diuresis with torsemide. Continue Isordil. Cardiology consulted. 10. Severe deconditioning. Physical therapy. 11. Stage II sacral decubitus ulcer. Pressure ulcer precautions. Wound care 12. Deep vein thrombosis (DVT) prophylaxis. Thromboembolic deterrents (TEDs) and sequentials. Eliquis on hold given GI bleed. DISPOSITION: Poor long-term prognosis. Pending short-term rehabilitation. Severe deconditioning. Continue physical therapy. Will need to receive antibiotics, ampicillin, until 06/01/2018. VS,Fishbone, I+O VS, Fishbone, I+O Laboratory Tests 05/19/18 05:29 Red Blood Count 3.44 L, Mean Corpuscular Volume 84.6, Mean Corpuscular Hemoglobin 25.6 L, Mean Corpuscular Hemoglobin Concent 30.2 L, Red Cell Distribution Width 17.4 H, Calcium Level 7.5 L Vital Signs Date Time Temp Pulse Resp B/P (MAP) Pulse Ox O2 Delivery O2 Flow Rate FiO2 05/19/18 17:27 149/76 05/19/18 17:24 16 2 Nasal Cannula 05/19/18 15:10 2.0 05/19/18 14:00 97.6 82 I&O- Last 24 Hours up to 6 AM 05/19/18 06:00 Intake Total 658 ml Output Total 0 ml Balance 658 ml DARY LUNDBERG MD May 19, 2018 18:25
[2018-05-19] MEDS: LIDOCAINE 5% (LIDODERM) PATCH TD SCH (21:43)
[2018-05-19 22:00] VITALS: BP 132/74
[2018-05-20] MEDS: SODIUM CHLORIDE 0.9% INJ 10 ML SYR IV SCH ×2 (05:48→17:11)
[2018-05-20] MEDS: AMPICILLIN SOD 2 GM in D5W MINI-BAG PLUS 100 ML IV SCH ×3 (05:48→17:10)
[2018-05-20 06:00] VITALS: BP 151/72
[2018-05-20 06:09] LABS: HEMATOCRIT 29.5 % (42.0-52.0); HEMOGLOBIN 8.8 g/dl (13.5-17.5); MEAN CORPUSCULAR HEMOGLOBIN 25.4 pg (27.0-33.0); MEAN CORPUSCULAR HGB CONC 29.8 g/dl (32.0-36.5); PLATELET COUNT, AUTOMATED 133 10^3/uL (150-450); RED BLOOD COUNT 3.47 10^6/uL (4.30-6.10); WHITE BLOOD COUNT 4.5 10^3/uL (4.0-10.0)
[2018-05-20 06:39] LABS: CALCIUM LEVEL 7.7 MG/DL (8.8-10.2); CREATININE FOR GFR 1.93 MG/DL (0.70-1.30); GLOMERULAR FILTRATION RATE 36.5 (>42); POTASSIUM SERUM 3.4 MEQ/L (3.5-5.1)
[2018-05-20] MEDS: SUCRALFATE SUSP 1GM/10ML UD PO SCH ×4 (07:30→21:00)
[2018-05-20] MEDS ORDERED: POTASSIUM CHLORIDE 10 MEQ SR TABLET PO ONE (08:00)
[2018-05-20] MEDS: SENOKOT S TAB PO SCH ×2 (08:55→21:00)
[2018-05-20] MEDS: FEBUXOSTAT 40 MG TABLET (ULORIC) PO SCH (08:55)
[2018-05-20] MEDS: ASPIRIN 81 MG ENTERIC TAB PO SCH (08:55)
[2018-05-20] MEDS: traMADol 50 MG TAB PO SCH ×4 (08:55→21:51)
[2018-05-20] MEDS: ATORVASTATIN 20 MG TAB PO SCH (08:56)
[2018-05-20] MEDS: ENTRESTO 24-26MG TABLET (SACUBITRIL/VALSARTAN) PO SCH ×2 (08:56→21:52)
[2018-05-20] MEDS: ISOSORBIDE DIN. (ISORDIL) 30 MG TAB PO SCH ×3 (08:56→21:00)
[2018-05-20] MEDS: MULTIVITAMINS/MINERALS THERAP 1 TAB PO SCH (08:56)
[2018-05-20] MEDS: ASCORBIC ACID 500 MG TAB PO SCH ×2 (08:56→21:00)
[2018-05-20] MEDS: FERROUS SULFATE 325MG TAB PO SCH ×2 (08:56→21:00)
[2018-05-20] MEDS: PANTOPRAZOLE 40MG TAB (PROTONIX) PO SCH (08:57)
[2018-05-20] MEDS: MIRALAX *UNIT DOSE* 17GM PACKET PO SCH ×3 (08:57→21:00)
[2018-05-20] MEDS: CARVedilol 12.5 MG TAB PO SCH ×2 (08:57→21:00)
[2018-05-20] MEDS: EUCERIN 120GM CREAM TOP SCH ×2 (08:57→21:52)
[2018-05-20] MEDS: LIDOCAINE 5% OINT 30 GM TOP SCH (08:58)
[2018-05-20] MEDS: NYSTATIN 100,000 UNITS/GM TOPICAL PWD 15 GM TOP SCH ×2 (08:58→21:52)
[2018-05-20] MEDS: **NOTE PATIENT COMMENT** MISC XX SCH (09:00)
[2018-05-20] MEDS: SODIUM CHLORIDE 0.9% INJ 10 ML SYR IV PRN ×3 (09:02→13:41)
[2018-05-20] MEDS: POTASSIUM CHLORIDE 10 MEQ SR TABLET PO SCH ×2 (09:02→21:00)
[2018-05-20] MEDS: ONDANSETRON 4MG/2ML VIAL (J2405) IV PRN (09:23)
--- NOTE | 2018-05-20 11:05 | IPN ---
DATE: 05/19/2018 Mr. Dixon seems to be improving slightly. His back pain is better controlled. He has no chest pain, fever or chills. PHYSICAL EXAMINATION Heart: Normal S1, S2, irregular. Lungs: Decreased breath sounds at the bases. Abdomen: Soft, nontender. Back: Mild lumbosacral tenderness and mid-thoracic tenderness around T8, T9. Decubitus ulcer, stage II. Extremities: No edema. IMPRESSION: 1. E. faecalis bacteremia with probable discitis, on IV ampicillin until 06/01/2018 which would be 6 weeks from negative culture. Monitor CBC, CRP, sed rate, basic profile weekly. A transesophageal echocardiogram was negative for vegetation. Bone scan was negative. 2. Acute on chronic heart failure, stable. LABORATORY DATA White count 5, hemoglobin 8.8, hematocrit 29.1, platelets 139. Sodium 145, potassium 3.3, chloride 109, bicarb 27, BUN 22, creatinine 1.69, glucose 76, calcium 7.5, magnesium 1.8, CRP 2.44. Infectious disease signing off. The patient to discontinue antibiotic on 06/01/2018. Discontinue IV ampicillin.
[2018-05-20 14:00] VITALS: BP 149/71
--- NOTE | 2018-05-20 15:20 | IPNPDOC ---
Text Note Date of Service The patient was seen on 05/20/18. NOTE Patient seen and examined. Continues to report mild back pain. Denies any chest pain, pressure, or discomfort. Denies any fevers or chills. Currently comfortable. reported vomiting and dysphagia with food and medication some of the time. BM yesterday PHYSICAL EXAMINATION: GENERAL: Patient in no acute distress, comfortable. HEENT: Normocephalic, atraumatic. PERRL CARDIAC: Irregular, S1, S2. PULMONARY: Decreased breath sounds bilateral. ABDOMEN: Soft and nontender. Positive bowel sounds. EXTREMITIES: Back: Stage II sacral decubitus ulcer. Trace bilateral lower extremity edema. Dorsalis pedis (DP)/posterior tibialis (PT) pulses intact. venous stasis skin change ASSESSMENT AND PLAN: This is a 72-year-old male patient with underlying medical history of atrial fibrillation, congestive heart failure (CHF), diastolic and systolic dysfunction, ejection fraction (EF) of 35-40%., coronary artery disease, hypertension, diabetes, chronic kidney disease (CKD), stage III, gout, lumbar degenerative disc disease, spinal stenosis, radiculopathy, history of colon cancer, history of skin cancer, mitral insufficiency, iron deficiency anemia, dyslipidemia, who presented with generalized weakness and diarrhea, found to have Enterococcus faecalis bacteremia. 1. Enterococcus faecalis bacteremia. Possibly discitis versus colitis versus chronic cholecystitis. Infectious disease (ID) consult appreciated. Continue ampicillin. End day 06/01/2017. Followup complete blood count (CBC), C-reactive protein, erythrocyte sedimentation rate (ESR). Transesophageal echocardiogram ([facility]) negative for vegetation. Bone scan negative. Repeat echo appreciated. Ampicillin for 6 weeks. Further recommendations as per infectious disease (ID). 2. Acute on chronic systolic and diastolic congestive heart failure. Off dobutamine drip. On Entresto. Eliquis on hold given patient has acute blood loss anemia. Statin, Coreg, Isordil. Cardiology consultation appreciated. Continue statin. Continue aspirin. Torsemide hold today given worsen kidney function 3. dysphagia, speech and swallow, modified barrium swallow. monitor 4. Acute on chronic renal disease. Currently at baseline. Baseline CKD, stage III. Likely acute worsening kidney function due to nephrotoxic medication, gentamicin, Entresto, and bacteremia. Nephrology consultation appreciated. Will continue to monitor. hold torsemide today. further rec as nephrology 4. Acute blood loss anemia secondary to gastrointestinal (GI) loss. With chronic anemia secondary to anemia of chronic disease. Patient was transfused. Iron, vitamin C. Gastrointestinal (GI) consulted. Unable to tolerate esophagogastroduodenoscopy (EGD), and patient has refused further intervention. Eliquis on hold after discussion with Dr. Andrew, but would recommend continued aspirin. monitor HH 5. Chronic back pain. CT spine appreciated. Discitis versus degenerative disc disease and spinal stenosis. Continue current pain regimen. Pain management consulted. 6. Chronic atrial fibrillation. Eliquis on hold secondary to GI bleed. Continue beta blockers. 7. Diabetes mellitus. hypoglycemia, Continue basal insulin, reduced. No need for mealtime, given patient has not had any elevated blood glucose 8. Diarrhea resolved. 9. Coronary artery disease. Continue aspirin, beta masood, Entresto, statin. Diuresis with torsemide on hold given worsening kidney function. Continue Isordil. Cardiology consulted. 10. Severe deconditioning. Physical therapy. 11. Stage II sacral decubitus ulcer. Pressure ulcer precautions. Wound care 12. Deep vein thrombosis (DVT) prophylaxis. Thromboembolic deterrents (TEDs) and sequentials. Eliquis on hold given GI bleed. DISPOSITION: Poor long-term prognosis. Pending short-term rehabilitation. Severe deconditioning. Continue physical therapy. Will need to receive antibiotics, ampicillin, until 06/01/2018. VS,Fishbone, I+O VS, Fishbone, I+O Laboratory Tests 05/20/18 05:48 Red Blood Count 3.47 L, Mean Corpuscular Volume 85.0, Mean Corpuscular Hemoglobin 25.4 L, Mean Corpuscular Hemoglobin Concent 29.8 L, Red Cell Distribution Width 17.4 H, Calcium Level 7.7 L Vital Signs Date Time Temp Pulse Resp B/P (MAP) Pulse Ox O2 Delivery O2 Flow Rate FiO2 05/20/18 14:00 98.1 78 18 149/71 (97) 96 Nasal Cannula 2.0 I&O- Last 24 Hours up to 6 AM 05/20/18 06:00 Intake Total 786 ml Output Total 0 ml Balance 786 ml DARY LUNDBERG MD May 20, 2018 15:20
[2018-05-20] MEDS: LIDOCAINE 5% (LIDODERM) PATCH TD SCH (21:00)
[2018-05-20] MEDS: LEVEMIR (INSULIN DETEMIR) 1 UNITS/0.01ML SC SCH (21:00)
[2018-05-20 22:00] VITALS: BP 134/82
[2018-05-21] MEDS: AMPICILLIN SOD 2 GM in D5W MINI-BAG PLUS 100 ML IV SCH ×5 (05:33→17:18)
[2018-05-21] MEDS: SODIUM CHLORIDE 0.9% INJ 10 ML SYR IV SCH ×2 (05:34→17:19)
[2018-05-21 06:00] VITALS: BP 152/76
[2018-05-21 06:14] LABS: C REACTIVE PROTEIN QUANTITATIV 1.53 MG/DL (0.00-0.30); CALCIUM LEVEL 7.8 MG/DL (8.8-10.2); CREATININE FOR GFR 2.26 MG/DL (0.70-1.30); GLOMERULAR FILTRATION RATE 30.4 (>42); POTASSIUM SERUM 3.7 MEQ/L (3.5-5.1)
[2018-05-21 06:25] LABS: HEMATOCRIT 29.5 % (42.0-52.0); HEMOGLOBIN 8.9 g/dl (13.5-17.5); MEAN CORPUSCULAR HEMOGLOBIN 25.6 pg (27.0-33.0); MEAN CORPUSCULAR HGB CONC 30.2 g/dl (32.0-36.5); PLATELET COUNT, AUTOMATED 126 10^3/uL (150-450); RED BLOOD COUNT 3.47 10^6/uL (4.30-6.10); WHITE BLOOD COUNT 4.9 10^3/uL (4.0-10.0)
[2018-05-21] MEDS: SUCRALFATE SUSP 1GM/10ML UD PO SCH ×4 (07:30→20:18)
[2018-05-21] MEDS: MIRALAX *UNIT DOSE* 17GM PACKET PO SCH ×2 (07:36→20:18)
[2018-05-21] MEDS: SENOKOT S TAB PO SCH ×2 (07:36→20:19)
[2018-05-21] MEDS: ONDANSETRON 4MG/2ML VIAL (J2405) IV PRN (07:48)
[2018-05-21] MEDS: SODIUM CHLORIDE 0.9% INJ 10 ML SYR IV PRN (07:48)
[2018-05-21] MEDS: **NOTE PATIENT COMMENT** MISC XX SCH (09:00)
--- NOTE | 2018-05-21 09:17 | IPN ---
DATE OF VISIT: 05/20/2018 SUBJECTIVE: Patient was seen and examined at the bedside today morning. The patient is awake and alert. He is hemodynamically stable. Nephrology service was called back to evaluate the patient. I am seeing the patient after two weeks. When I signed off initially, his baseline creatinine has been fluctuating around 1.5. The patient's creatinine yesterday was 1.6. He was given a dose of torsemide 20 mg by mouth for edema and today his creatinine has bumped up to 1.9. Patient also continues to be on Entresto for his heart failure. There is no other significant change in his regimen since the last time I saw him. REVIEW OF SYSTEMS: Patient denies any fevers or chills. He denies any chest pain or shortness of breath. He denies any ain the abdomen, constipation, dysuria or difficulty with urination. He does report weakness and inability to walk. OBJECTIVE: VITAL SIGNS: Temperature is 98.1 degrees Fahrenheit, blood pressure 149/71, pulse 78, respiratory rate of 18, saturating 96% on nasal cannula at 2 liters. INTAKE AND OUTPUT: Urine output is not recorded. The patient has incontinent voids. Weight on the bed scale is stable at 87 kg. PHYSICAL EXAMINATION: GENERAL: The patient is awake, alert and oriented times two. Laying in bed in no apparent distress. HEAD/NECK: Extraocular muscles intact. Pupils equally round and reactive to light. Mucous membranes are moist. Neck is supple. He does have positive hepatojugular reflux (HJR). CARDIOVASCULAR: S1, S2 regular rate. Trace edema of the bilateral lower extremities. RESPIRATORY: Chest is clear to auscultation bilaterally. Bilateral equal air entry. Mildly decreased breath sounds at the base. ABDOMEN: Soft, obese. Positive bowel sounds. Nontender. GENITOURINARY (): Bladder is nonpalpable. Patient is wearing a diaper. MUSCULOSKELETAL: No clubbing or cyanosis. Trace edema of the bilateral lower extremities. CENTRAL NERVOUS SYSTEM: Patient is oriented times two, otherwise moves bilateral upper extremities and follows commands. LAB REVIEW: CBC showed a WBC of 4.5, hemoglobin 8.8, platelets of 133. BMP showed sodium 147, potassium 3.4, chloride 110, bicarbonate 27, BUN 21, creatinine is 1.9, it was 1.6 yesterday. Calcium is 7.7. CURRENT INPATIENT MEDICATIONS: The patient's medications were all reviewed by me. He continues to be on ampicillin 2 grams IV every 6 hours. He is also on Entresto two tablets of 24/26 mg twice a day. He continues to be on calcitriol Tuesday, Tuesday, and Tuesday. He is also on Coreg 25 mg by mouth twice a day. He continues to be on Uloric 50 mg by mouth daily. He was given one dose of torsemide 20 mg by mouth yesterday morning and he is also on isosorbide dinitrate 30 mg by mouth three times a day. No other changes in the medications today as compared with yesterday. ASSESSMENT AND PLAN: 1. Acute kidney injury superimposed on chronic kidney disease, stage III. The patient's creatinine had been fluctuating around 1.5 to 1.6, however he got a dose of torsemide 20 mg yesterday and his creatinine has bumped up to 1.9. Sodium also went up. I agree with holding the torsemide. His urine output is not being monitored because he is incontinent. It is okay to continue Entresto for right now, however, if I do not see any significant improvement in his renal function I might decrease his dose of Entresto. No need of IV fluid hydration at this point since he already has a history of congestive heart failure (CHF). 2. Hypokalemia. Potassium is 3.4. Patient was also already given a dose of potassium chloride 20 mEq by mouth times one dose, and he is also on 20 mEq twice a day of potassium chloride. 3. Chronic combined systolic and diastolic congestive heart failure. The patient does have some evidence of edema. He was given a dose of torsemide yesterday which he did not tolerate. Creatinine has bumped up. His LVEF is around 30%. He continues to be on Coreg, isosorbide and Entresto. Continue to monitor daily weights. 4. Hypertension with chronic kidney disease and hypertensive heart disease. Blood pressure is very well optimized with the current antihypertensive regimen. Continue current medications at this point. 5. Enterococcus faecalis bacteremia. The patient is getting IV ampicillin. Last dose of antibiotics will be June 01, 2018. Okay to continue the penicillins at this point. I do not believe the acute bump in the creatinine is secondary to antibiotic induced nephrotoxicity. 6. Anemia secondary to chronic kidney disease and iron deficiency. Continue oral iron at this point. He has been given 4 units of packed red blood cells (PRBC) transfusion so far. Transfuse as needed for a hemoglobin below 8. 7. Hypernatremia. Sodium is 147, most likely secondary to decreased oral intake and use of diuretic. Torsemide has been held. Hopefully sodium level is expected to improve over the next 24-48 hours. No need of IV D5W administration at this point. 8. Secondary hyperparathyroidism of renal origin. Continue current dose of calcitriol Tuesday, Tuesday, and Tuesday. 9. Chronic gout secondary to chronic kidney disease. Okay to continue current dose of Uloric 80 mg by mouth daily.
[2018-05-21] MEDS: ENTRESTO 24-26MG TABLET (SACUBITRIL/VALSARTAN) PO SCH ×3 (09:43→20:59)
[2018-05-21] MEDS: PANTOPRAZOLE 40MG TAB (PROTONIX) PO SCH (09:44)
[2018-05-21] MEDS: FEBUXOSTAT 40 MG TABLET (ULORIC) PO SCH (09:44)
[2018-05-21] MEDS: MULTIVITAMINS/MINERALS THERAP 1 TAB PO SCH (09:44)
[2018-05-21] MEDS: FERROUS SULFATE 325MG TAB PO SCH ×2 (09:44→20:57)
[2018-05-21] MEDS: POTASSIUM CHLORIDE 10 MEQ SR TABLET PO SCH ×2 (09:44→20:57)
[2018-05-21] MEDS: ASCORBIC ACID 500 MG TAB PO SCH ×3 (09:44→21:00)
[2018-05-21] MEDS: ATORVASTATIN 20 MG TAB PO SCH (09:44)
[2018-05-21] MEDS: DRONABINOL 2.5 MG CAP (MARINOL) PO SCH ×3 (09:44→17:19)
[2018-05-21] MEDS: ISOSORBIDE DIN. (ISORDIL) 30 MG TAB PO SCH ×4 (09:45→20:59)
[2018-05-21] MEDS: CARVedilol 12.5 MG TAB PO SCH ×2 (09:45→20:33)
[2018-05-21] MEDS: ASPIRIN 81 MG ENTERIC TAB PO SCH (09:45)
[2018-05-21] MEDS: LIDOCAINE 5% OINT 30 GM TOP SCH (09:46)
[2018-05-21] MEDS: traMADol 50 MG TAB PO SCH ×5 (09:46→21:37)
[2018-05-21] MEDS: EUCERIN 120GM CREAM TOP SCH ×2 (09:47→21:00)
[2018-05-21] MEDS: NYSTATIN 100,000 UNITS/GM TOPICAL PWD 15 GM TOP SCH ×2 (09:47→20:35)
--- NOTE | 2018-05-21 12:06 | IPN ---
DATE: 05/21/2018 SUBJECTIVE: Patient is seen and examined at the bedside this morning. His was also present at the bedside. He is awake and alert. There is no significant improvement in the renal function. Creatinine is actually bumped up from 1.9 to 2.2. Patient is incontinence of urine. I checked the bedside bladder scan. After he voided there was more than 250 mL of urine in the bladder. His Entresto dose was decreased to one tablet by mouth twice a day this morning. OBJECTIVE: VITAL SIGNS: Temperature is 97.8 degrees Fahrenheit. Blood pressure 154/70, pulse 92, respiratory rate 19, saturating 99% on nasal cannula at 2 liters. Intake and output: Urine output is not recorded. He has incontinent voids. Weight on the bed scale is 86.8 kg. PHYSICAL EXAMINATION: GENERAL: Patient is awake, alert, oriented times two laying in bed in no apparent distress. HEAD AND NECK EXAMINATION: Extraocular muscles intact. Pupils equal, round, and reactive to light and accommodation. Mucous membranes are moist. Positive hepatojugular reflex was noted. CARDIOVASCULAR: S1, S2. Regular rate. Trace edema of the bilateral lower extremities. RESPIRATORY: Chest is clear to auscultation bilaterally. Decreased breath sounds at the bases, otherwise no active rales or rhonchi. ABDOMEN: Soft. Obese. Positive bowel sounds. GENITOURINARY: Bedside bladder scan was done. Before voiding his postvoid residual was more than 380 mL. After voiding it was 250 mL. MUSCULOSKELETAL: No clubbing or stenosis. Trace edema of the bilateral lower extremities. CENTRAL NERVOUS SYSTEM: She is oriented times two. Follows commands and moves upper extremities. He complains of severe back pain on movement. LAB REVIEW: CBC showed WBC of 4.9, hemoglobin 8.9, platelets 126. BMP showed sodium of 144, potassium 3.7, chloride 109, bicarbonate 28, BUN 24, creatinine 2.2. It was 1.9 yesterday. Calcium 7.8, magnesium 2. CURRENT INPATIENT MEDICATIONS: The patient's medications were all reviewed by me. I have decreased his Entresto dose to one tablet by mouth twice a day. He continues to be on IV antibiotics. Patient is not on any diuretics at this point. ASSESSMENT/PLAN: 1. Acute kidney disease superimposed on chronic kidney disease stage III. Patient's renal function is worse than baseline. His baseline creatinine is around 1.5. Creatinine today is 2.2. Patient was found to have urinary retention. He will get a Hampton catheter placed. Continue to hold the diuretics. I have also decreased the Entresto dose to one tablet by mouth twice a day. 2. Hypokalemia: Potassium is improved to 3.7. He was also given another dose of potassium chloride yesterday and he continues to be on potassium chloride 20 mEq by mouth twice a day. 3. Chronic combined systolic and diastolic congestive heart failure: Because of the acute renal failure, his furosemide has been stopped. His ejection fraction (EF) is around 30%. Continue current dose of Coreg and isosorbide. Entresto was decreased to one tablet by mouth twice a day because of worsening creatinine. 4. Hypertension with chronic kidney disease and hypertensive heart disease: Blood pressure is optimized. Continue current dose of carvedilol, isosorbide and a lower dose of Entresto. If blood pressure gets elevated after lowering the Entresto dose, then he will be started on hydralazine. 5. Enterococcus fecalis bacteremia: Patient continues to be on IV ampicillin. Last dose will be on June 01, 2018. 6. Urinary retention: Patient had more than 250 mL of postvoid residual even after voiding. He will get Hampton catheter placed. I will continue the Hampton catheter at least for 48 hours until his renal function improves.
[2018-05-21 14:00] VITALS: BP 144/62
--- NOTE | 2018-05-21 14:35 | IPNPDOC ---
Text Note Date of Service The patient was seen on 05/21/18. NOTE Patient seen and examined. Continues to report mild back pain. Denies any chest pain, pressure, or discomfort. Denies any fevers or chills. Currently comfortable. reported vomiting and dysphagia with food and medication usually in the am . PHYSICAL EXAMINATION: GENERAL: Patient in no acute distress, comfortable. HEENT: Normocephalic, atraumatic. PERRL CARDIAC: Irregular, S1, S2. PULMONARY: Decreased breath sounds bilateral. ABDOMEN: Soft and nontender. Positive bowel sounds. EXTREMITIES: Back: Stage II sacral decubitus ulcer. Trace bilateral lower extremity edema. Dorsalis pedis (DP)/posterior tibialis (PT) pulses intact. venous stasis skin change ASSESSMENT AND PLAN: This is a 72-year-old male patient with underlying medical history of atrial fibrillation, congestive heart failure (CHF), diastolic and systolic dysfunction, ejection fraction (EF) of 35-40%., coronary artery disease, hypertension, diabetes, chronic kidney disease (CKD), stage III, gout, lumbar degenerative disc disease, spinal stenosis, radiculopathy, history of colon cancer, history of skin cancer, mitral insufficiency, iron deficiency anemia, dyslipidemia, who presented with generalized weakness and diarrhea, found to have Enterococcus faecalis bacteremia. 1. Enterococcus faecalis bacteremia. Possibly discitis versus colitis versus chronic cholecystitis. Infectious disease (ID) consult appreciated. Continue ampicillin. End day 06/01/2017. Followup complete blood count (CBC), C-reactive protein, erythrocyte sedimentation rate (ESR). Transesophageal echocardiogram ([facility]) negative for vegetation. Bone scan negative. Repeat echo appreciated. Ampicillin for 6 weeks. Further recommendations as per infectious disease (ID). 2. Acute on chronic systolic and diastolic congestive heart failure. Off dobutamine drip. On Entresto. Eliquis on hold given patient has acute blood loss anemia. Statin, Coreg, Isordil. Cardiology consultation appreciated. Continue statin. Continue aspirin. Torsemide hold today given worsen kidney function 3. dysphagia, speech and swallow, modified barrium swallow. monitor 4. Acute on chronic renal disease. Currently at baseline. Baseline CKD, stage III. Likely acute worsening kidney function due to nephrotoxic medication, gentamicin, Entresto, and bacteremia. Nephrology consultation appreciated. Will continue to monitor. hold torsemide today. further rec as nephrology 4. Acute blood loss anemia secondary to gastrointestinal (GI) loss. With chronic anemia secondary to anemia of chronic disease. Patient was transfused. Iron, vitamin C. Gastrointestinal (GI) consulted. Unable to tolerate esophagogastroduodenoscopy (EGD), and patient has refused further intervention. Eliquis on hold after discussion with Dr. Andrew, but would recommend continued aspirin. monitor HH 5. Chronic back pain. CT spine appreciated. Discitis versus degenerative disc disease and spinal stenosis. Continue current pain regimen. Pain management consulted. 6. Chronic atrial fibrillation. Eliquis on hold secondary to GI bleed. Continue beta blockers. 7. Diabetes mellitus. hypoglycemia, Continue basal insulin, reduced. No need for mealtime, given patient has not had any elevated blood glucose 8. Diarrhea resolved. 9. Coronary artery disease. Continue aspirin, beta masood, Entresto, statin. Diuresis with torsemide on hold given worsening kidney function. Continue Isordil. Cardiology consulted. 10. Severe deconditioning. Physical therapy. 11. Stage II sacral decubitus ulcer. Pressure ulcer precautions. Wound care 12. Deep vein thrombosis (DVT) prophylaxis. Thromboembolic deterrents (TEDs) and sequentials. Eliquis on hold given GI bleed. DISPOSITION: Poor long-term prognosis. Pending short-term rehabilitation. Severe deconditioning. Continue physical therapy. Will need to receive antibiotics, ampicillin, until 06/01/2018. further workup for dysphagia VS,Fishbone, I+O VS, Fishbone, I+O Laboratory Tests 05/21/18 05:31 Red Blood Count 3.47 L, Mean Corpuscular Volume 85.0, Mean Corpuscular Hemoglobin 25.6 L, Mean Corpuscular Hemoglobin Concent 30.2 L, Red Cell Distribution Width 17.2 H, Calcium Level 7.8 L Vital Signs Date Time Temp Pulse Resp B/P (MAP) Pulse Ox O2 Delivery O2 Flow Rate FiO2 05/21/18 14:00 97.9 85 16 144/62 (89) 97 Nasal Cannula 2.0 I&O- Last 24 Hours up to 6 AM 05/21/18 06:00 Intake Total 1300 ml Balance 1300 ml DARY LUNDBERG MD May 21, 2018 14:35
[2018-05-21] MEDS: LEVEMIR (INSULIN DETEMIR) 1 UNITS/0.01ML SC SCH (20:57)
[2018-05-21] MEDS: LIDOCAINE 5% (LIDODERM) PATCH TD SCH (20:57)
[2018-05-21 22:00] VITALS: BP 172/86
[2018-05-22] MEDS: AMPICILLIN SOD 2 GM in D5W MINI-BAG PLUS 100 ML IV SCH ×5 (00:21→23:49)
[2018-05-22] MEDS: SODIUM CHLORIDE 0.9% INJ 10 ML SYR IV SCH ×2 (05:40→17:19)
[2018-05-22 06:00] VITALS: BP 120/78
[2018-05-22 06:05] LABS: HEMOGLOBIN 9.4 g/dl (13.5-17.5); MEAN CORPUSCULAR HEMOGLOBIN 25.9 pg (27.0-33.0); MEAN CORPUSCULAR HGB CONC 30.3 g/dl (32.0-36.5); MEAN CORPUSCULAR VOLUME 85.4 fl (80.0-96.0); PLATELET COUNT, AUTOMATED 142 10^3/uL (150-450); RED BLOOD COUNT 3.63 10^6/uL (4.30-6.10); WHITE BLOOD COUNT 6.1 10^3/uL (4.0-10.0)
[2018-05-22 06:22] LABS: CREATININE FOR GFR 2.95 MG/DL (0.70-1.30); GLOMERULAR FILTRATION RATE 22.4 (>42); MAGNESIUM LEVEL 2.1 MG/DL (1.8-2.4); POTASSIUM SERUM 4.1 MEQ/L (3.5-5.1)
[2018-05-22] MEDS: DRONABINOL 2.5 MG CAP (MARINOL) PO SCH ×4 (07:30→17:20)
[2018-05-22] MEDS: SUCRALFATE SUSP 1GM/10ML UD PO SCH (07:30)
[2018-05-22] MEDS: ONDANSETRON 4MG/2ML VIAL (J2405) IV PRN (08:06)
[2018-05-22] MEDS: SODIUM CHLORIDE 0.9% INJ 10 ML SYR IV PRN (08:06)
[2018-05-22] MEDS: FERROUS SULFATE 325MG TAB PO SCH ×3 (09:00→21:00)
[2018-05-22] MEDS: FEBUXOSTAT 40 MG TABLET (ULORIC) PO SCH ×2 (09:00→09:46)
[2018-05-22] MEDS: ISOSORBIDE DIN. (ISORDIL) 30 MG TAB PO SCH ×4 (09:00→21:00)
[2018-05-22] MEDS: PANTOPRAZOLE 40MG TAB (PROTONIX) PO SCH ×2 (09:00→09:47)
[2018-05-22] MEDS: traMADol 50 MG TAB PO SCH ×6 (09:00→21:13)
[2018-05-22] MEDS: CARVedilol 12.5 MG TAB PO SCH ×4 (09:00→21:12)
[2018-05-22] MEDS: ASPIRIN 81 MG ENTERIC TAB PO SCH ×2 (09:00→09:46)
[2018-05-22] MEDS: ASCORBIC ACID 500 MG TAB PO SCH ×3 (09:00→21:00)
[2018-05-22] MEDS: SENOKOT S TAB PO SCH ×2 (09:00→21:00)
[2018-05-22] MEDS: ATORVASTATIN 20 MG TAB PO SCH ×2 (09:00→09:46)
[2018-05-22] MEDS: MULTIVITAMINS/MINERALS THERAP 1 TAB PO SCH ×2 (09:00→09:47)
[2018-05-22] MEDS: EUCERIN 120GM CREAM TOP SCH ×2 (09:00→21:18)
[2018-05-22] MEDS: MIRALAX *UNIT DOSE* 17GM PACKET PO SCH ×2 (09:00→21:00)
[2018-05-22] MEDS: **NOTE PATIENT COMMENT** MISC XX SCH (09:00)
[2018-05-22] MEDS: CALCITRIOL 0.25 MCG CAP (S0169) PO SCH (09:47)
[2018-05-22] MEDS: NYSTATIN 100,000 UNITS/GM TOPICAL PWD 15 GM TOP SCH ×2 (09:49→21:19)
[2018-05-22] MEDS: LIDOCAINE 5% OINT 30 GM TOP SCH (09:49)
[2018-05-22 09:50] VITALS: BP 146/96
--- NOTE | 2018-05-22 09:51 | NUR ---
Pt with mild oral phase dysphagia. Recommend level 2 solids, thin liquids, assist w/ upright positioning as tolerated during meals, assist w/ thorough oral care 3x/day, medications crushed prn, GI consult esophagram recommended Addendum: 05/22/[address] [facility] Amended: Links added.
[2018-05-22] MEDS: NS 0.45% 1,000 ML IV SCH (12:19)
[2018-05-22] MEDS: **hydrALAZINE** 10 MG TAB PO SCH ×3 (13:15→21:34)
[2018-05-22 14:00] VITALS: BP 109/64
[2018-05-22 15:48] LABS: POTASSIUM RANDOM URINE 50.3 MEQ/L
--- NOTE | 2018-05-22 18:36 | IPNPDOC ---
Text Note Date of Service The patient was seen on 05/22/18. NOTE Patient seen and examined. Continues to report mild back pain. Denies any chest pain, pressure, or discomfort. Denies any fevers or chills. reported vomiting and dysphagia with food and medication usually in the am . Poor PO. PHYSICAL EXAMINATION: GENERAL: Patient in no acute distress, comfortable. HEENT: Normocephalic, atraumatic. PERRL CARDIAC: Irregular, S1, S2. PULMONARY: Decreased breath sounds bilateral. ABDOMEN: Soft and nontender. Positive bowel sounds. EXTREMITIES: Back: Stage II sacral decubitus ulcer. Trace bilateral lower extremity edema. Dorsalis pedis (DP)/posterior tibialis (PT) pulses intact. venous stasis skin change ASSESSMENT AND PLAN: This is a 72-year-old male patient with underlying medical history of atrial fibrillation, congestive heart failure (CHF), diastolic and systolic dysfunction, ejection fraction (EF) of 35-40%., coronary artery d isease, hypertension, diabetes, chronic kidney disease (CKD), stage III, gout, lumbar degenerative disc disease, spinal stenosis, radiculopathy, history of colon cancer, history of skin cancer, mitral insufficiency, iron deficiency anemia, dyslipidemia, who presented with generalized weakness and diarrhea, found to have Enterococcus faecalis bacteremia. 1. Enterococcus faecalis bacteremia. Possibly discitis versus colitis versus chronic cholecystitis. Infectious disease (ID) consult appreciated. Continue ampicillin. End day 06/01/2017. Followup complete blood count (CBC), C-reactive protein, erythrocyte sedimentation rate (ESR). Transesophageal echocardiogram ([facility]) negative for vegetation. Bone scan negative. Repeat echo appreciated. Ampicillin for 6 weeks. Further recommendations as per infectious disease (ID). 2. Acute on chronic systolic and diastolic congestive heart failure. treated with dobutamine drip during the hospital course, off dobutamine. Entresto on hold for worsening renal function. Eliquis on hold given patient has acute blood loss anemia. continue asa, Statin, Coreg, Isordil. Cardiology consultation appreciated. Torsemide hold today given worsen kidney function 3. dysphagia, speech and swallow, modified barrium swallow, and esophagram. monitor 4. Acute on chronic renal disease. Currently at baseline. Baseline CKD, stage III. Likely acute worsening kidney function due to nephrotoxic medication, and poor PO. Nephrology consultation appreciated. Will continue to monitor. hold torsemide and Entresto as per Renal. further rec as nephrology. trial of IVF 4. Acute blood loss anemia secondary to gastrointestinal (GI) loss. With chronic anemia secondary to anemia of chronic disease. Patient was transfused. Iron, vitamin C. Gastrointestinal (GI) consulted. Unable to tolerate esophagogastroduodenoscopy (EGD), and patient has refused further intervention. Eliquis on hold after discussion with Dr. Andrew, but would recommend continued aspirin. monitor HH 5. Chronic back pain. CT spine appreciated. Discitis versus degenerative disc disease and spinal stenosis. Continue current pain regimen. Pain management consulted. 6. Chronic atrial fibrillation. Eliquis on hold secondary to GI bleed. Continue beta blockers. 7. Diabetes mellitus. hypoglycemia, Continue basal insulin, reduced. No need for mealtime, given patient has not had any elevated blood glucose 8. Diarrhea resolved. 9. Coronary artery disease. Continue aspirin, beta masood, statin. Entresto and diuresis with torsemide on hold given worsening kidney function. Continue Isordil. Cardiology consulted. 10. Severe deconditioning. Physical therapy. 11. Stage II sacral decubitus ulcer. Pressure ulcer precautions. Wound care 12. Deep vein thrombosis (DVT) prophylaxis. Thromboembolic deterrents (TEDs) and sequentials. Eliquis on hold given GI bleed. DISPOSITION: Poor long-term prognosis. Pending short-term rehabilitation. Severe deconditioning. Continue physical therapy. Will need to receive antibiotics, ampicillin, until 06/01/2018. further workup for dysphagia VS,Fishbone, I+O VS, Fishbone, I+O Laboratory Tests 05/22/18 05:33 Red Blood Count 3.63 L, Mean Corpuscular Volume 85.4, Mean Corpuscular Hemoglobin 25.9 L, Mean Corpuscular Hemoglobin Concent 30.3 L, Red Cell Distribution Width 17.5 H, Calcium Level 8.0 L Vital Signs Date Time Temp Pulse Resp B/P (MAP) Pulse Ox O2 Delivery O2 Flow Rate FiO2 05/22/18 17:20 19 Nasal Cannula 2.0 05/22/18 17:20 156/90 05/22/18 14:00 97.7 91 97 I&O- Last 24 Hours up to 6 AM 05/22/18 05:59 Intake Total 1220 ml Output Total 650 ml Balance 570 ml DARY LUNDBERG MD May 22, 2018 18:36
[2018-05-22] MEDS: LIDOCAINE 5% (LIDODERM) PATCH TD SCH (21:00)
[2018-05-22] MEDS: LEVEMIR (INSULIN DETEMIR) 1 UNITS/0.01ML SC SCH (21:00)
[2018-05-22 22:00] VITALS: BP 166/79
[2018-05-23] MEDS: NS 0.45% 1,000 ML IV SCH (04:02)
[2018-05-23] MEDS: AMPICILLIN SOD 2 GM in D5W MINI-BAG PLUS 100 ML IV SCH ×3 (05:09→18:00)
[2018-05-23] MEDS: SODIUM CHLORIDE 0.9% INJ 10 ML SYR IV SCH ×2 (05:10→17:07)
[2018-05-23] MEDS: **hydrALAZINE** 10 MG TAB PO SCH ×3 (05:13→21:38)
[2018-05-23 06:00] VITALS: BP 158/77
[2018-05-23 06:16] LABS: HEMATOCRIT 28.1 % (42.0-52.0); HEMOGLOBIN 8.4 g/dl (13.5-17.5); MEAN CORPUSCULAR HEMOGLOBIN 25.7 pg (27.0-33.0); MEAN CORPUSCULAR HGB CONC 29.9 g/dl (32.0-36.5); MEAN CORPUSCULAR VOLUME 85.9 fl (80.0-96.0); PLATELET COUNT, AUTOMATED 118 10^3/uL (150-450); RED BLOOD COUNT 3.27 10^6/uL (4.30-6.10); WHITE BLOOD COUNT 5.5 10^3/uL (4.0-10.0)
[2018-05-23 06:42] LABS: C REACTIVE PROTEIN QUANTITATIV 1.37 MG/DL (0.00-0.30); CALCIUM LEVEL 7.3 MG/DL (8.8-10.2); CREATININE FOR GFR 3.33 MG/DL (0.70-1.30); GLOMERULAR FILTRATION RATE 19.5 (>42); POTASSIUM SERUM 3.8 MEQ/L (3.5-5.1)
[2018-05-23] MEDS: DRONABINOL 2.5 MG CAP (MARINOL) PO SCH ×3 (07:30→17:06)
[2018-05-23] MEDS: CARVedilol 12.5 MG TAB PO SCH ×2 (08:36→21:39)
[2018-05-23] MEDS: ASPIRIN 81 MG ENTERIC TAB PO SCH (08:36)
[2018-05-23] MEDS: ISOSORBIDE DIN. (ISORDIL) 30 MG TAB PO SCH ×3 (08:37→21:38)
[2018-05-23] MEDS: SENOKOT S TAB PO SCH ×2 (08:37→21:38)
[2018-05-23] MEDS: MULTIVITAMINS/MINERALS THERAP 1 TAB PO SCH (08:37)
[2018-05-23] MEDS: ATORVASTATIN 20 MG TAB PO SCH (08:37)
[2018-05-23] MEDS: PANTOPRAZOLE 40MG TAB (PROTONIX) PO SCH (08:37)
[2018-05-23] MEDS: MIRALAX *UNIT DOSE* 17GM PACKET PO SCH ×2 (08:37→21:33)
[2018-05-23] MEDS: FERROUS SULFATE 325MG TAB PO SCH ×2 (08:37→21:39)
[2018-05-23] MEDS: EUCERIN 120GM CREAM TOP SCH ×2 (08:38→21:42)
[2018-05-23] MEDS: traMADol 50 MG TAB PO SCH ×4 (08:38→21:39)
[2018-05-23] MEDS: LIDOCAINE 5% OINT 30 GM TOP SCH (08:38)
[2018-05-23] MEDS: ASCORBIC ACID 500 MG TAB PO SCH ×2 (08:38→21:40)
[2018-05-23] MEDS: FEBUXOSTAT 40 MG TABLET (ULORIC) PO SCH (08:38)
[2018-05-23] MEDS: NYSTATIN 100,000 UNITS/GM TOPICAL PWD 15 GM TOP SCH ×2 (08:39→21:42)
[2018-05-23] MEDS: **NOTE PATIENT COMMENT** MISC XX SCH (08:39)
--- NOTE | 2018-05-23 10:10 | REP ---
Clinical: Tachypnea. Comparison: 04/30/2018. Findings: Right PICC line with tip in the SVC. Evidence for prior sternotomy, CABG and pacemaker. Cardiomegaly is again appreciated. Indistinct pulmonary vasculature with increased interstitial markings, cephalization, and bibasilar opacities/effusions consistent with pulmonary edema. No pneumothorax. Impression: Findings most compatible with pulmonary edema. Electronically Signed by Amandeep Donnelly MD 05/23/2018 10:02 A
[2018-05-23] MEDS ORDERED: FUROSEMIDE 100 MG/10 ML VIAL (J1940) IV STA (10:19)
[2018-05-23 10:50] VITALS: BP 152/70
[2018-05-23] MEDS: DOBUTamine HCL 500,000 MCG in APPROPRIATE DILUENT 1 EA IV SCH (11:52)
--- NOTE | 2018-05-23 13:40 | IPN ---
DATE OF SERVICE: 05/22/2018 SUBJECTIVE: Patient was seen and examined at the bedside today morning. Patient is awake, but he reports that he is not feeling good. His renal function continues to deteriorate. His creatinine has bumped up from 2.2 to 2.9 today. Patient is oliguric at this point. He got the Hampton catheter placed yesterday, however, since overnight his urine output is only 325 mL. As reported by nursing staff patient is hardly eating or drinking anything. He is otherwise hemodynamically stable. Because of the worsening renal function I also stopped his Entresto today morning. OBJECTIVE: VITAL SIGNS: Temperature is 97 degrees Fahrenheit. Blood pressure 146/96, pulse 93, respiratory rate 18, saturating 95% on nasal cannula at 2 liters. Intake and output: Urine output recorded as 650 mL yesterday, 325 mL so far today since overnight. Weight on the bed scale is not available. PHYSICAL EXAMINATION: GENERAL: Patient is awake, alert, oriented times two laying in bed in no apparent distress. HEAD AND NECK EXAMINATION: Extraocular muscles intact. Pupils equal, round, and reactive to light. Mucous membranes are dry. NECK: Supple. There is positive hepatojugular reflux. CARDIOVASCULAR: S1, S2. Tachycardia was noted. No edema of the bilateral lower extremities. RESPIRATORY: Chest is clear to auscultation bilaterally. Decreased breath sounds at the bases, otherwise no active rales or rhonchi. ABDOMEN: Soft. Obese. Positive bowel sounds. Nontender. GENITOURINARY: He has an indwelling Hampton catheter. Urine in the bag is a little darker in color. MUSCULOSKELETAL: No clubbing or stenosis. Pulses are 2+. CENTRAL NERVOUS SYSTEM: He is oriented times two. Follows commands and moves upper extremities. LAB REVIEW: CBC showed a WBC of 6.1, hemoglobin 9.4, platelets 142. Urine random creatinine is 115, random sodium is 21, potassium is 50.3, and chloride is 17. BMP showed sodium of 144, potassium 4.1, chloride 108, bicarbonate 26, BUN 30, creatinine 2.9. It was 2.2 yesterday. Calcium 8. CURRENT INPATIENT MEDICATIONS: The patient's medications were all reviewed by me. He continues to be on IV ampicillin. His Entresto was stopped today. He has been started on Dronabinol yesterday. He was also started on hydralazine 10 mg by mouth every 8 hours. Potassium chloride was stopped today. Sucralfate was also stopped. ASSESSMENT AND PLAN: 1. Acute kidney injury superimposed on chronic kidney disease stage 3. Patient's renal function continues to get worse. Creatinine has bumped to 2.9 today. Clinically he looks dry. Urine electrolytes also point towards volume depletion. He has been started on half normal saline at 60 mL an hour, continue to monitor intake and output. 2. Chronic combined systolic and diastolic congestive heart failure. Because of worsening renal failure, I have stopped his Entresto dose. He continues to be on Coreg and isosorbide. I have also started him on hydralazine 10 mg by mouth three times a day with holding parameters, dose will be adjusted tomorrow after his response. Patient has a baseline left ejection fraction (EF) of 30%, he was recently on dobutamine infusion because of heart failure. 3. Hypertension with chronic kidney disease and hypertensive heart disease. As mentioned above he continues to be on Coreg and isosorbide. He is not a candidate for Entresto at this point because of acute renal failure. Continue the hydralazine with holding parameters. 4. Enterococcus fecalis bacteremia. He continues to be on IV ampicillin. Last dose will be on June 01, 2018. 5. Urinary retention: Patient continues to be on Hampton catheter. Continue the Hampton for now since we need to monitor accurate intake and output because of acute renal failure.
[2018-05-23 16:00] VITALS: BP 148/66
[2018-05-23] MEDS: FUROSEMIDE 100 MG/10 ML VIAL (J1940) IV SCH (16:19)
[2018-05-23 20:00] VITALS: BP 142/84
[2018-05-23] MEDS: LIDOCAINE 5% (LIDODERM) PATCH TD SCH (21:34)
[2018-05-23] MEDS: LEVEMIR (INSULIN DETEMIR) 1 UNITS/0.01ML SC SCH (21:37)
[2018-05-24] VITALS (7 sets, daily range): BP systolic 122–164; BP diastolic 62–95
[2018-05-24] MEDS: AMPICILLIN SOD 2 GM in D5W MINI-BAG PLUS 100 ML IV SCH ×3 (00:49→18:24)
[2018-05-24] MEDS: FUROSEMIDE 100 MG/10 ML VIAL (J1940) IV SCH ×2 (00:52→08:21)
[2018-05-24] MEDS: SODIUM CHLORIDE 0.9% INJ 10 ML SYR IV SCH ×2 (05:36→18:00)
[2018-05-24] MEDS: **hydrALAZINE** 10 MG TAB PO SCH ×3 (05:36→21:17)
[2018-05-24 05:55] LABS: HEMATOCRIT 29.6 % (42.0-52.0); MEAN CORPUSCULAR HEMOGLOBIN 25.7 pg (27.0-33.0); MEAN CORPUSCULAR HGB CONC 30.4 g/dl (32.0-36.5); MEAN CORPUSCULAR VOLUME 84.6 fl (80.0-96.0); PLATELET COUNT, AUTOMATED 131 10^3/uL (150-450); WHITE BLOOD COUNT 5.7 10^3/uL (4.0-10.0)
[2018-05-24 06:11] LABS: CALCIUM LEVEL 7.6 MG/DL (8.8-10.2); CREATININE FOR GFR 4.04 MG/DL (0.70-1.30); GLOMERULAR FILTRATION RATE 15.6 (>42); POTASSIUM SERUM 3.9 MEQ/L (3.5-5.1)
[2018-05-24] MEDS: DRONABINOL 2.5 MG CAP (MARINOL) PO SCH ×3 (07:30→17:03)
[2018-05-24] MEDS: FERROUS SULFATE 325MG TAB PO SCH (08:18)
[2018-05-24] MEDS: ATORVASTATIN 20 MG TAB PO SCH (08:18)
[2018-05-24] MEDS: CARVedilol 12.5 MG TAB PO SCH ×2 (08:19→21:12)
[2018-05-24] MEDS: ASPIRIN 81 MG ENTERIC TAB PO SCH ×2 (08:19→08:47)
[2018-05-24] MEDS: SENOKOT S TAB PO SCH ×3 (08:19→21:11)
[2018-05-24] MEDS: ASCORBIC ACID 500 MG TAB PO SCH (08:20)
[2018-05-24] MEDS: ISOSORBIDE DIN. (ISORDIL) 30 MG TAB PO SCH ×3 (08:20→21:12)
[2018-05-24] MEDS: CALCITRIOL 0.25 MCG CAP (S0169) PO SCH ×2 (08:20→08:47)
[2018-05-24] MEDS: MULTIVITAMINS/MINERALS THERAP 1 TAB PO SCH ×2 (08:20→08:47)
[2018-05-24] MEDS: traMADol 50 MG TAB PO SCH ×4 (08:20→21:14)
[2018-05-24] MEDS: PANTOPRAZOLE 40MG TAB (PROTONIX) PO SCH (08:20)
[2018-05-24] MEDS: MIRALAX *UNIT DOSE* 17GM PACKET PO SCH ×2 (08:20→21:15)
[2018-05-24] MEDS: NYSTATIN 100,000 UNITS/GM TOPICAL PWD 15 GM TOP SCH ×2 (08:22→21:16)
[2018-05-24] MEDS: EUCERIN 120GM CREAM TOP SCH ×2 (08:22→21:00)
[2018-05-24] MEDS: **NOTE PATIENT COMMENT** MISC XX SCH (08:22)
[2018-05-24] MEDS: LIDOCAINE 5% OINT 30 GM TOP SCH (08:22)
[2018-05-24] MEDS: FEBUXOSTAT 40 MG TABLET (ULORIC) PO SCH (08:47)
[2018-05-24] MEDS ORDERED: E-Z-HD 98% w/w 340GM SUSP BTL As Ordered ONE (09:34)
[2018-05-24] MEDS ORDERED: E-Z-GAS II EFFERVESCENT PACKET (SODIUM BICARB./CITRIC ACID/SIMETHICONE) As Ordered ONE (09:34)
[2018-05-24] MEDS ORDERED: E-Z-PAQUE 96% w/w SUSP 176GM BTL As Ordered ONE (09:34)
[2018-05-24] MEDS ORDERED: VARIBAR NECTAR 40% w/v 240ML SUSP BTL As Ordered ONE (09:34)
[2018-05-24] MEDS ORDERED: VARIBAR PUDDING 40% w/v 230ML TUBE As Ordered ONE (09:34)
--- NOTE | 2018-05-24 10:59 | IPN ---
DATE: 05/23/2018 Connor is seen while rounding for the hospitalist. I was called by the staff this morning because the patient was having labored respirations with normal oxygen saturations. I ordered a stat chest x-ray and asked to be called with the report. I then heard from Dr. Jack from nephrology that he was transferred the patient to PCU for acute pulmonary edema and initiating dobutamine for cardiorenal syndrome, which the patient had received earlier in his hospitalization. PHYSICAL EXAMINATION: Afebrile, 152/70, oxygen saturation 99% on 2 liters. General appearance: He looks ill and weak. Lungs have decreased breath sounds. Heart regular rhythm. 1/6 systolic ejection murmur. Abdomen soft, nontender. There is no peripheral edema. LABS: Creatinine is up to 3.3. White count is 5.5, hemoglobin 8.4, platelets 118. IMPRESSION: 1. Cardiorenal syndrome. Per nephrology, the patient was recently on IV fluids. These have been discontinued. Diuresis initiated by nephrology, dobutamine on board. I have discussed the case with Dr. Ayon who is covering cardiology. Cardiology as seeing him earlier in the hospitalization and they are now reconsulted. 2. Acute on chronic renal disease. Per nephrology, prognosis is poor. The patient recently received Entresto, accidentally. 3. Acute blood loss anemia secondary to GI blood loss. Eliquis is on hold. He could not tolerate EGD. Declined any further intervention. 4. Enterococcal Faecalis bacteremia. He is on ampicillin, end date 06/01/2018. The patient's prognosis is poor. He does not have DO NOT RESUSCITATE status. I am very pessimistic about his outlook at this point.
--- NOTE | 2018-05-24 11:21 | REP ---
PORTABLE CHEST X-RAY: Single supine view. HISTORY: Shortness of breath. COMPARISON STUDY: May 23, 2018. FINDINGS: EKG monitoring electrodes are seen. A bipolar pacemaker is again seen. Moderate cardiomegaly is observed unchanged. A right-sided PICC line is seen with its tip in the expected location of the superior vena cava. There is some fissural thickening and a small quantity of pleural fluid is suspected bilaterally. Pulmonary vasculature is cephalized, congested, and indistinct. IMPRESSION: CHF pattern with small bilateral effusions. Pulmonary vascular congestion and cardiomegaly are observed. Pacemaker and PICC line noted in place. Electronically Signed by Rosalio Mcbride MD 05/24/2018 12:30 P
--- NOTE | 2018-05-24 12:01 | CR ---
DATE OF CONSULTATION: 05/23/2018 Dr. Self has asked me to see Mr. Dixon because of his progressively worsening renal function and evidence for pulmonary edema on chest x-ray. The patient is previously unknown to me. He has been followed by [facility]. He is a gentleman who has established coronary artery disease, chronic atrial fibrillation and severe left ventricular systolic dysfunction. He has been in this facility for over a month, initially presented with signs of infection and Enterococcus faecalis was grown from multiple blood cultures. He has been having very prolonged course of IV antibiotics under the guidance of infectious disease service. He also has chronic heart failure and as of last few days, his dyspnea is progressively worsening. He already was attended by the nephrology service and his baseline Entresto was discontinued the day before yesterday. He received a Hampton catheter because there were signs of urinary obstruction. Today he was started on dobutamine and the dose of furosemide was further increased. When I saw the patient he had a fairly recent urine output of about 200 mL or so. The patient tells me that he still feeling short of breath even though he can speak full sentences and does not seem to be in any significant distress. He denies any chest discomfort but does complain about back pain. Vital signs: Blood pressure 152/70, heart rate has been mostly from 70s to 90s with atrial fibrillation with occasional ventricular ectopy. He is afebrile. Saturation 98% on 2 liters of oxygen. So far the documented urine output yesterday was only 425 mL, today only about 300 mL so far plus additional urine in the bag currently. He is alert and oriented and appropriate. His jugular venous pulse (JVP) is high. The lungs reveal end inspiratory crackles bilaterally consistent with chest x- ray suggestive of pulmonary edema. Heart exam reveals irregularly irregular rhythm. There is a murmur coming over the aortic valve, not very prominent maybe 2/6 intensity. I also appreciate fairly subtle diastolic murmur just left from the sternum. Abdomen is soft. No obvious tenderness. There is some peripheral edema but not overly prominent. There are multiple ecchymoses on his extremities. LABORATORY: Hemoglobin today is 8.4, hematocrit 28, platelet count 118,000, WBC count 5.5. Basic metabolic panel sodium 139, potassium 3.8, BUN 35, creatinine 3.3 and glucose 138 and terminal pro-BNP yesterday was 15,000. Chest x-ray performed earlier today is consistent with congestive heart failure. ASSESSMENT/PLAN: Mr. Dixon is a 72 on my man who has chronic atrial fibrillation and ischemic cardiomyopathy with severe left ventricular systolic dysfunction. I do agree with the management as initiated by nephrology service . Because of his acute renal failure, I agree with discontinuation of Entresto. I also agree with giving him dobutamine and starting him on hydralazine. He does have chronic atrial fibrillation but the rate seems to be reasonably well-controlled. Unfortunately, he refused to take some of his morning medications today and I told him that it is essential to take his medicines because otherwise, we cannot really help him. I am concerned also because the patient tells me that he, under no circumstances, would consider dialysis and if his renal function does not improve fairly rapidly, it will be a significant issue. But I do not believe there is much more we can contribute at this particular moment. I will be off tomorrow but Dr. Barrera will be covering. [place]
--- NOTE | 2018-05-24 14:13 | IPN ---
DATE: 05/24/2018 Connor seen in the PCU. He is declining further. His renal function is worse. He is more dyspneic. Looks more tired today. PHYSICAL EXAMINATION: 142/90, pulse was 81, respiratory rate 20, oxygen saturation 100% on 2 liters. General appearance: Chronic ill appearing, multiple ecchymosis of the arms. He is alert and conversant. No jugular venous distension (JVD). Lungs have diffuse rhonchi. Heart rhythm. Abdomen soft, nontender. Trace peripheral edema. LABORATORY: White count 5.7, hemoglobin 9, platelets 131. Sodium 141, potassium 3.9, BUN 37, creatinine 4.0, glucose 94. IMPRESSION: Cardiorenal syndrome. His worsened yesterday's precondition is deteriorating. I had a long discussion with him about considering palliative care. I discussed comfort measures and what that would entail, possibly involving hospice. He admitted that he was feeling as though he was getting tired of all the medical care and I told him I would discuss this further with him tomorrow. The rest of the medical problems appear to be stable. Unfortunately, my gasoline locomotive crane operator from yesterday has not been transcribed (10:24 a.m.), so I do not have the note with the plan as laid out yesterday.
[2018-05-24 15:36] LABS: APPEARANCE, URINE HAZY (CLEAR); BACTERIA, URINE AUTO NEGATIVE (NEGATIVE); BILIRUBIN, URINE AUTO NEGATIVE (NEGATIVE); BLOOD, URINE BLOOD NEGATIVE (NEGATIVE); COLOR, URINE YELLOW (YELLOW); GLUCOSE, URINE (UA) AUTO NEGATIVE (NEGATIVE); KETONE, URINE AUTO NEGATIVE (NEGATIVE); LEUKOCYTE ESTERASE, URINE AUTO TRACE (NEGATIVE); NITRITE, URINE AUTO NEGATIVE (NEGATIVE); PROTEIN, URINE AUTO 2+ mg/dL (NEGATIVE); RBC, URINE AUTO 17 /HPF (0-3); SPECIFIC GRAVITY URINE AUTO 1.009 (1.002-1.035); SQUAMOUS EPITHELIAL CELL UR AU 0 /HPF (0-6); UROBILINOGEN, URINE AUTO 0.2 mg/dL (0.0-2.0); WBC, URINE AUTO 22 /HPF (0-3)
--- NOTE | 2018-05-24 16:38 | IPN ---
DATE: 05/23/2018 SUBJECTIVE: Patient was seen and examined at the bedside today morning. He had just come back after getting his chest x-ray done. Patient reported that he is very short of breath and a subjective feeling that I feel like I have a hole in my lung. He was wearing nasal cannula. He is otherwise hemodynamically stable. Blood pressure is actually slightly high. Patient is oliguric at this time. There is no significant improvement of the renal function. His creatinine has bumped up to 3.3 from 2.9 yesterday. OBJECTIVE: VITAL SIGNS: Temperature 97.4 degrees Fahrenheit, blood pressure 158/77, pulse 95, respiratory rate 20 saturating 97% on room nasal cannula at 2 liters. INTAKE AND OUTPUT: Urine output recorded as only 100 overnight. Weight in the bed scale is 92.1 kg. PHYSICAL EXAMINATION: GENERAL: Patient is awake, alert, and oriented times two sitting up in the bed in moderate respiratory distress using nasal cannula. HEAD AND NECK EXAM: Extraocular muscles are intact. Pupils are equally round and reactive to light. Mucous membranes are moist. Neck is supple. There is moderate elevated JVD. CARDIOVASCULAR: S1, S2 irregularly irregular heart rate. Trace edema bilateral lower extremities and +1 edema of the bilateral thighs. RESPIRATORY: Decreased breath sounds at the bases with mild respiratory crackles at the bases bilaterally. Patient wearing nasal cannula and is tachypneic. ABDOMEN: Soft, positive bowel sounds and nontender. No organomegaly. GENITOURINARY: Patient has an indwelling Hampton catheter with color of only about 100 mL of urine in the bag. MUSCULOSKELETAL: No clubbing, no cyanosis. Chronic venous stasis changes of the bilateral lower extremities. DERMATOLOGIST: Alert and oriented times two. Moves extremities and is able to communicate and follow commands. LAB REVIEW: CBC showed a WBC of 5.5, hemoglobin 8.4, platelets 118. Urine electrolytes were done yesterday excretion of sodium was roughly around 0.84% which points towards either severe heart failure or volume depletion. BMP done today morning showed a sodium 139, potassium 3.8, chloride 106, bicarbonate 27, BUN 35, creatinine 3.3. It was 2.9 yesterday, calcium 7.3, c-reactive protein is 1.3, proBNP was 15,283 yesterday. IMAGING: Chest x-ray was done today morning which showed cardiomegaly with pulmonary congestion cephalization and pulmonary edema. CURRENT INPATIENT MEDICATIONS: Patient's medications were all reviewed by me. Patient got gentle IV fluid hydration yesterday. IV fluids have been stopped. He continues to be on IV antibiotics. I gave a stat dose of Lasix 80 mg IV times one dose now and I have started him on Lasix 60 mg IV every 8 hours. I have also started the patient on dobutamine drip at 0.5 mcg 5 kg per minute. ASSESSMENT AND PLAN: 1. Acute kidney injury superimposed on chronic kidney disease stage 3. Patient's baseline creatinine is around 1.5. Renal function continues to get worse. Urine electrolytes done yesterday showed a prerenal picture which can be secondary to severe heart failure as well. Patient has pulmonary edema. He already has a Hampton catheter. I am starting him on Lasix injections for his fluid overload and Entresto was already stopped. 2. Acute decompensated combined systolic and diastolic congestive heart failure. His LV injection fraction is low. He was recently on Dobutamine infusion and Lasix injections. I am restarting the patient on Dobutamine 0.5 mcg/kg/minute. He is being transferred to PCU. I have also started him on Lasix 60 mg IV every 12 hours. He is not a candidate for Entresto at this time because of renal failure. Continue current dose of Coreg, Isosorbide and hydralazine. 3. Hypertension with chronic kidney disease and hypertensive heart disease. Continue current dose of Coreg Isosorbide and hydralazine. IV diuresis would also help improve volume status and blood pressure. 4. Enterococcus fecalis bacteremia. Continue ampicillin. Last dose will be June 01, 2018. 5. Urinary retention. Continue the Hampton catheter at this point for adequate urine output monitoring. 6. Acute respiratory distress secondary to pulmonary edema. Patient is being transported to PCU. He is being started on Dobutamine and Lasix for pulmonary edema. If the patient's symptoms do not get better he might need CPAP until his volume status is optimized. Patient to be evaluated in an hour by the primary team to see to the effect of Lasix. Plan of care was already discussed with the primary team physician Dr. Sreedhar Self and with the patient's RN at the bedside today morning. [place]
[2018-05-24] MEDS: LEVEMIR (INSULIN DETEMIR) 1 UNITS/0.01ML SC SCH (21:00)
[2018-05-24] MEDS: LIDOCAINE 5% (LIDODERM) PATCH TD SCH (21:16)
[2018-05-25] VITALS (7 sets, daily range): BP systolic 124–168; BP diastolic 70–96
[2018-05-25] MEDS: FUROSEMIDE 100 MG/10 ML VIAL (J1940) IV SCH ×2 (00:24→12:55)
[2018-05-25] MEDS: **hydrALAZINE** 10 MG TAB PO SCH ×3 (05:06→22:24)
[2018-05-25] MEDS: SODIUM CHLORIDE 0.9% INJ 10 ML SYR IV SCH ×2 (05:06→18:00)
[2018-05-25] MEDS: AMPICILLIN SOD 2 GM in D5W MINI-BAG PLUS 100 ML IV SCH ×2 (05:06→18:21)
[2018-05-25 05:37] LABS: HEMATOCRIT 30.1 % (42.0-52.0); HEMOGLOBIN 9.2 g/dl (13.5-17.5); MEAN CORPUSCULAR HEMOGLOBIN 25.6 pg (27.0-33.0); MEAN CORPUSCULAR HGB CONC 30.6 g/dl (32.0-36.5); MEAN CORPUSCULAR VOLUME 83.8 fl (80.0-96.0); PLATELET COUNT, AUTOMATED 130 10^3/uL (150-450); RED BLOOD COUNT 3.59 10^6/uL (4.30-6.10); WHITE BLOOD COUNT 5.8 10^3/uL (4.0-10.0)
[2018-05-25 05:50] LABS: C REACTIVE PROTEIN QUANTITATIV 1.25 MG/DL (0.00-0.30); CALCIUM LEVEL 7.9 MG/DL (8.8-10.2); CREATININE FOR GFR 4.04 MG/DL (0.70-1.30); GLOMERULAR FILTRATION RATE 15.6 (>42); POTASSIUM SERUM 3.6 MEQ/L (3.5-5.1)
[2018-05-25] MEDS: DRONABINOL 2.5 MG CAP (MARINOL) PO SCH ×3 (07:30→18:22)
[2018-05-25] MEDS: traMADol 50 MG TAB PO SCH ×4 (08:51→22:25)
[2018-05-25] MEDS: ISOSORBIDE DIN. (ISORDIL) 30 MG TAB PO SCH ×3 (08:52→22:26)
[2018-05-25] MEDS: CARVedilol 12.5 MG TAB PO SCH ×2 (08:52→22:24)
[2018-05-25] MEDS: ATORVASTATIN 20 MG TAB PO SCH (08:53)
[2018-05-25] MEDS: EUCERIN 120GM CREAM TOP SCH ×2 (09:00→21:00)
[2018-05-25] MEDS: **NOTE PATIENT COMMENT** MISC XX SCH (09:00)
[2018-05-25] MEDS: SENOKOT S TAB PO SCH ×3 (09:00→21:00)
[2018-05-25] MEDS: FEBUXOSTAT 40 MG TABLET (ULORIC) PO SCH (10:44)
[2018-05-25] MEDS: ASPIRIN 81 MG ENTERIC TAB PO SCH (11:21)
[2018-05-25] MEDS: PANTOPRAZOLE 40MG TAB (PROTONIX) PO SCH (11:21)
[2018-05-25] MEDS: FERROUS SULFATE 325MG TAB PO SCH (12:54)
[2018-05-25] MEDS: NYSTATIN 100,000 UNITS/GM TOPICAL PWD 15 GM TOP SCH ×2 (12:55→22:27)
[2018-05-25] MEDS: LIDOCAINE 5% OINT 30 GM TOP SCH (12:55)
[2018-05-25] MEDS: MIRALAX *UNIT DOSE* 17GM PACKET PO SCH ×2 (12:57→22:26)
--- NOTE | 2018-05-25 13:41 | IPN ---
DATE: 05/25/2018 Connor is seen in the progressive care unit (PCU) for his cardiorenal syndrome. No change in status from yesterday. PHYSICAL EXAMINATION: 158/72, pulse 73, respiratory rate 20, 98% oxygen saturation. GENERAL APPEARANCE: He is lying in bed. He looks chronically ill, unchanged from yesterday. LUNGS: Diffuse rhonchi. HEART: Regular rhythm. ABDOMEN: Soft, nontender. EXTREMITIES: Trace peripheral edema. LABORATORIES: Hemoglobin is stable at 11.2. Creatinine unchanged from yesterday at 4.0. IMPRESSION: 1. Cardiorenal syndrome. Prognosis is poor. His renal function is not improved. Nephrology is following him. Waiting on their note from today. Prognosis is poor. I discussed the possibility of palliative care, hospital referral and comfort measure status to the patient today and he declined these and indicated that he did not want comfort measures or hospital referral. 2. Enterococcus faecalis bacteremia. He is on ampicillin with an end date of 06/01/2018. 3. Acute blood loss anemia secondary to gastrointestinal bleed. Eliquis is on hold. He did not tolerate esophagogastroduodenoscopy (EGD). 4. Urinary retention. Hampton catheter is still in for now as we are still monitoring input and output.
[2018-05-25] MEDS: MULTIVITAMINS/MINERALS THERAP 1 TAB PO SCH ×2 (14:26→14:35)
--- NOTE | 2018-05-25 16:58 | IPN ---
DATE: 05/24/2018 SUBJECTIVE: The patient was seen and examined at the bedside today morning. The patient reports that he is still feeling short of breath. He does not feel much better today as compared with yesterday. He was transferred to progressive care unit (PCU) yesterday. He was started on dobutamine infusion and given Lasix injections because of congestive heart failure and pulmonary edema. There is no significant improvement in the renal function. Creatinine continues to bump up and despite IV Lasix, the patient has hardly made about 600 mL of urine since overnight. OBJECTIVE: VITAL SIGNS: Temperature is 97 degrees Fahrenheit, blood pressure is 142/90, pulse is 93, respiratory rate of 20, saturating 100% on nasal cannula at two liters. INTAKE AND OUTPUT: Urine output recorded is 650 mL since overnight. Weight in the bed scale is 89.7 kg. PHYSICAL EXAMINATION: GENERAL: The patient is awake, alert and oriented times two, laying in bed, mild respiratory distress. HEAD AND NECK: Extraocular muscles are intact. Pupils are equally round and reactive to light. Mucous membranes are moist. Neck is supple. There is mildly elevated jugular venous distention (JVD). Positive hepatojugular reflux. CARDIOVASCULAR: S1, S2, irregular rate, +1 edema of the bilateral thighs was noted. RESPIRATORY: Decreased breath sounds at the bases. Otherwise, no active rales or rhonchi. ABDOMEN: Soft, obese, positive bowel sounds. GENITOURINARY: He has an indwelling Hampton catheter. MUSCULOSKELETAL: No clubbing or cyanosis. Chronic venous stasis changes of the bilateral lower extremities. Pulses are 2+. CENTRAL NERVOUS SYSTEM (WEATHER TEACHER): The patient is oriented times two. He follows commands. He was able to communicate. LABORATORY REVIEW: CBC showed a WBC of 5.7, hemoglobin is 9, platelets are 131. BMP showed sodium 142, potassium 3.9, chloride 106, bicarbonate 27, BUN 37, creatinine is 4, it was 3.3 yesterday, calcium 7.6. IMAGING STUDIES: Repeat chest x-ray was done today morning which showed CHF pattern with small bilateral effusions, pulmonary vascular congestion and cardiomegaly. CURRENT INPATIENT MEDICATIONS: The patient's medications were all reviewed by me. He is currently on dobutamine infusion. He also continues to be on IV ampicillin. I have changed the dose to every 12 hours because of acute renal failure. He was also on Lasix 60 mg IV every eight hours and I have decreased the dose to 60 mg every 12 hours. No other change in the medications today as compared with yesterday. ASSESSMENT AND PLAN: 1. Acute kidney injury superimposed on chronic kidney disease, stage III. Renal function continues to deteriorate. Creatinine has bumped up to 4. Because of congestive heart failure (CHF) and fluid overload, he was started on dobutamine yesterday and Lasix injections. With the Lasix injections, his creatinine is worse. The patient is also getting ampicillin for many weeks. I have decreased the dose to every 12 hours because of acute renal failure. Repeat urinalysis is pending. 2. Chronic combined systolic and diastolic congestive heart failure. The patient is still in CHF. Chest x-ray shows pulmonary edema. Continue current dose of hydralazine, Coreg and isosorbide. Entresto was stopped when he developed renal failure. Continue Lasix 60 mg IV every 12 hours. 3. Hypertension with chronic kidney disease and hypertensive heart disease. Blood pressure is optimized. Continue current dose of Coreg 25 mg by mouth twice a day, hydralazine 10 mg every eight hours, and isosorbide 30 mg by mouth three times a day. 4. Enterococcus faecalis bacteremia. The patient is on IV ampicillin every six hours. Because of acute renal failure and worsening creatinine, ampicillin dose has been changed to every 12 hours now. Last dose will be 06/01/2018. 5. Urinary retention. Continue the Hampton catheter at this point for critical monitoring. DISPOSITION: I discussed the patient's current condition including congestive heart failure, fluid overload and renal failure with him, and I told him that if his renal function does not improve he might need hemodialysis, but at this point given the patient's multiple comorbidities, long hospital stay and physical deconditioning, he himself does not wish to have hemodialysis done. The patient is DO NOT RESUSCITATE (DNR). He wants to continue the current medications and he will discuss his further goals of care with his and I would have another discussion with them tomorrow morning. At this point, I would continue the current medical management for now. I agree with the patient's decision. He is not a candidate for long-term hemodialysis because of multiple comorbidities. Overall, the patient has a poor prognosis.
[2018-05-25] MEDS: LIDOCAINE 5% (LIDODERM) PATCH TD SCH (21:00)
[2018-05-25] MEDS: LEVEMIR (INSULIN DETEMIR) 1 UNITS/0.01ML SC SCH (21:00)
[2018-05-26] MEDS: FUROSEMIDE 100 MG/10 ML VIAL (J1940) IV SCH ×2 (01:22→14:22)
[2018-05-26 04:00] VITALS: BP 160/84
[2018-05-26] MEDS: AMPICILLIN SOD 2 GM in D5W MINI-BAG PLUS 100 ML IV SCH ×2 (05:22→18:00)
[2018-05-26] MEDS: SODIUM CHLORIDE 0.9% INJ 10 ML SYR IV SCH ×2 (05:22→21:19)
[2018-05-26] MEDS: **hydrALAZINE** 10 MG TAB PO SCH ×3 (05:22→21:14)
[2018-05-26 06:09] LABS: HEMATOCRIT 30.1 % (42.0-52.0); HEMOGLOBIN 9.3 g/dl (13.5-17.5); MEAN CORPUSCULAR HEMOGLOBIN 25.5 pg (27.0-33.0); MEAN CORPUSCULAR HGB CONC 30.9 g/dl (32.0-36.5); MEAN CORPUSCULAR VOLUME 82.7 fl (80.0-96.0); PLATELET COUNT, AUTOMATED 133 10^3/uL (150-450); RED BLOOD COUNT 3.64 10^6/uL (4.30-6.10); WHITE BLOOD COUNT 5.7 10^3/uL (4.0-10.0)
[2018-05-26 06:37] LABS: CALCIUM LEVEL 7.7 MG/DL (8.8-10.2); CREATININE FOR GFR 3.69 MG/DL (0.70-1.30); GLOMERULAR FILTRATION RATE 17.3 (>42); POTASSIUM SERUM 3.4 MEQ/L (3.5-5.1)
[2018-05-26 08:00] VITALS: BP 132/55
[2018-05-26] MEDS: MIRALAX *UNIT DOSE* 17GM PACKET PO SCH ×2 (09:00→21:00)
[2018-05-26] MEDS: EUCERIN 120GM CREAM TOP SCH ×2 (09:00→21:00)
[2018-05-26] MEDS: SENOKOT S TAB PO SCH ×2 (09:00→21:00)
[2018-05-26] MEDS: **NOTE PATIENT COMMENT** MISC XX SCH (09:00)
[2018-05-26] MEDS: CALCITRIOL 0.25 MCG CAP (S0169) PO SCH ×2 (09:00→10:47)
[2018-05-26] MEDS ORDERED: POTASSIUM CHLORIDE 10% LIQ 20 MEQ/15 ML UDC PO ONE (10:30)
[2018-05-26] MEDS: ASPIRIN 81 MG ENTERIC TAB PO SCH (10:48)
[2018-05-26] MEDS: FEBUXOSTAT 40 MG TABLET (ULORIC) PO SCH (10:48)
[2018-05-26] MEDS: DRONABINOL 2.5 MG CAP (MARINOL) PO SCH ×3 (10:48→17:05)
[2018-05-26] MEDS: traMADol 50 MG TAB PO SCH ×4 (10:49→21:20)
[2018-05-26] MEDS: MULTIVITAMINS/MINERALS THERAP 1 TAB PO SCH (10:49)
[2018-05-26] MEDS: FERROUS SULFATE 325MG TAB PO SCH (10:50)
[2018-05-26] MEDS: CARVedilol 12.5 MG TAB PO SCH ×2 (10:52→21:13)
[2018-05-26] MEDS: ATORVASTATIN 20 MG TAB PO SCH (10:53)
[2018-05-26] MEDS: ISOSORBIDE DIN. (ISORDIL) 30 MG TAB PO SCH ×3 (10:53→21:13)
[2018-05-26] MEDS: PANTOPRAZOLE 40MG TAB (PROTONIX) PO SCH (10:53)
[2018-05-26] MEDS: NYSTATIN 100,000 UNITS/GM TOPICAL PWD 15 GM TOP SCH ×2 (10:54→21:15)
[2018-05-26] MEDS: LIDOCAINE 5% OINT 30 GM TOP SCH (10:55)
[2018-05-26 11:53] VITALS: BP 136/86
[2018-05-26] MEDS ORDERED: POTASSIUM CHLORIDE 10 MEQ SR TABLET PO ONE (14:00)
--- NOTE | 2018-05-26 14:55 | IPN ---
DATE: 05/25/2018 SUBJECTIVE: Patient was seen and examined at the bedside today morning. His was also present at the bedside. He is afebrile. He continues to be on dobutamine infusion. He still reports a moderate amount of shortness of breath. He is responding well to the current dose of diuretics. He is making more urine now, however there is no significant improvement in the renal function. Creatinine has plateaued at around 4. OBJECTIVE: VITAL SIGNS: Temperature is 97.5 degrees Fahrenheit, blood pressure 156/70, pulse 80, respiratory rate 18, saturating 98% on nasal cannula at 1 liter. INTAKE AND OUTPUT: Urine output recorded is 1.3 liters yesterday, 2 liters so far today since overnight. Weight in the bed scale is 86.1 kg. PHYSICAL EXAMINATION: GENERAL: Patient is awake, alert, oriented times two, laying in bed, no apparent distress, wearing nasal cannula. HEAD AND NECK EXAM: Pupils are equally round and reactive to light. Mucous membranes are moist. Neck is supple, mildly elevated jugular venous distention (JVD) with positive hepatojugular reflux. CARDIOVASCULAR: S1, S2, irregular rate, 1+ edema of the bilateral thighs. RESPIRATORY: Mildly decreased breath sounds at the bases. Mild crepitations on deep inspiration at the bases, otherwise no active rales or rhonchi. ABDOMEN: Soft, obese, positive bowel sounds. GENITOURINARY: He has an indwelling Hampton catheter. MUSCULOSKELETAL: Chronic venous stasis changes of the bilateral lower extremities, 1+ edema of the bilateral lower extremities. 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 LABORATORY REVIEW: CBC showed a WBC of 5.8, hemoglobin 9.2, platelets are 130. BMP showed sodium 143, potassium 3.6, chloride 106, bicarbonate 27, BUN 42, creatinine is 4, calcium 7.9, C-reactive protein 1.2. CURRENT INPATIENT MEDICATIONS: Patient's medications were all reviewed by me. He is on a lower dose of ampicillin 2 grams every 12 hours. He continues to be on dobutamine drip and he is on Lasix injection 60 mg every 12 hours. His hydralazine dose has been increased to 20 mg by mouth every 8 hours. No other change in the medications today as compared with yesterday. ASSESSMENT AND PLAN: 1. Acute kidney injury superimposed on chronic kidney disease stage III. Multifactorial at this point. He is in cardiorenal syndrome. He was also taking Entresto. Entresto has been stopped. Patient is responding well to the current diuretic regimen, however I do not see any improvement in the creatinine. Okay to continue the diuresis at this point. Continue the Hampton catheter at this point. I discussed with the patient and his because of his multiple medical comorbidities he is not a candidate for renal replacement therapy. He himself does not want any dialysis, but he wants to continue the aggressive medical management at this point. 2. Chronic combined systolic and diastolic congestive heart failure. Volume status is decompensated. He had pulmonary edema on chest x-ray yesterday. He is not a candidate for angiotensin converting enzyme (ABY) inhibitor or angiotensin receptor masood. Continue current dose of Lasix 60 mg every 12 hours. His urine output is improving since yesterday. 3. Hypertension with chronic kidney disease and hypertensive heart disease. Continue current dose of Coreg and isosorbide. His Entresto was stopped. His blood pressures were high. I increased his hydralazine to 20 mg by mouth every 8 hours with holding parameters. 4. Enterococcus faecalis bacteremia. Patient is currently on ampicillin. Dose was decreased yesterday because of GFR up around 15. Last dose of ampicillin will be 06/01/2018. 5. Urinary retention. Continue the Hampton catheter at this point. DISPOSITION: I discussed the goals of care with patient and his at the same time in the room today and they both agreed that they want to continue the aggressive medical management but patient is DO NOT RESUSCITATE and they do not want any hemodialysis for his renal failure.
--- NOTE | 2018-05-26 15:15 | IPN ---
DATE: 05/26/2018 Connor's renal function is a little better today. He says he is still as short of breath as he was. Urine output has improved somewhat. Denies any chest pain. PHYSICAL EXAMINATION: VITAL SIGNS: Stable. LUNGS: Clear. HEART: Regular rate and rhythm, 1/6 systolic ejection murmur. ABDOMEN: Soft, nontender. No peripheral edema. LABORATORY DATA: Potassium 3.4, creatinine is down to 3.7. CBC unchanged. Blood sugars are 70-100. Telemetry shows recurrent nonsustained ventricular tachycardia. IMPRESSION: 1. Cardiorenal syndrome. Renal function is marginally improved. Patient has DO NOT RESUSCITATE status, but does not want comfort measures. Does not want to proceed with dialysis should it come to that. 2. Enterococcus faecalis bacteremia. On ampicillin intravenously, end date 06/01/2018. 3. Anemia secondary to gastrointestinal (GI) bleeding. Eliquis on hold. Would not tolerate EGD. 4. Diabetes. Blood sugars have been low. I am stopping his detemir insulin, he is only getting 6 units a day and his blood sugars have been in the 70s. Diabetic complications are not going to pose a long-term problem for this gentleman whose prognosis in the short-term is quite poor. 5. Nonsustained ventricular tachycardia. This has occurred despite normal potassium and magnesium levels. Supplemental potassium has been given today. Will transfer the patient out of progressive care unit (PCU) as he is DO NOT RESUSCITATE and lethal arrhythmia would not be acted upon anyway.
[2018-05-26 15:53] VITALS: BP 145/66
[2018-05-26 20:00] VITALS: BP 151/95
[2018-05-26] MEDS: LIDOCAINE 5% (LIDODERM) PATCH TD SCH (21:12)
[2018-05-26 23:59] VITALS: BP 150/61
[2018-05-27] MEDS: FUROSEMIDE 100 MG/10 ML VIAL (J1940) IV SCH ×2 (00:02→12:33)
[2018-05-27 04:00] VITALS: BP_SYST 133; BP_SYST 138; BP_DIAS 65; BP_DIAS 83
[2018-05-27 04:47] LABS: C REACTIVE PROTEIN QUANTITATIV 0.95 MG/DL (0.00-0.30)
[2018-05-27] MEDS: **hydrALAZINE** 10 MG TAB PO SCH ×3 (05:01→21:31)
[2018-05-27] MEDS: SODIUM CHLORIDE 0.9% INJ 10 ML SYR IV SCH ×2 (05:02→18:37)
[2018-05-27] MEDS: AMPICILLIN SOD 2 GM in D5W MINI-BAG PLUS 100 ML IV SCH ×2 (05:59→18:37)
[2018-05-27 08:00] VITALS: BP 130/50
[2018-05-27] MEDS: PANTOPRAZOLE 40MG TAB (PROTONIX) PO SCH (08:10)
[2018-05-27] MEDS: MIRALAX *UNIT DOSE* 17GM PACKET PO SCH ×2 (08:10→21:00)
[2018-05-27] MEDS: FEBUXOSTAT 40 MG TABLET (ULORIC) PO SCH (08:11)
[2018-05-27] MEDS: MULTIVITAMINS/MINERALS THERAP 1 TAB PO SCH (08:11)
[2018-05-27] MEDS: FERROUS SULFATE 325MG TAB PO SCH ×2 (08:11→09:00)
[2018-05-27] MEDS: ATORVASTATIN 20 MG TAB PO SCH (08:11)
[2018-05-27] MEDS: traMADol 50 MG TAB PO SCH ×4 (08:11→21:33)
[2018-05-27] MEDS: DRONABINOL 2.5 MG CAP (MARINOL) PO SCH ×3 (08:11→16:08)
[2018-05-27] MEDS: ASPIRIN 81 MG ENTERIC TAB PO SCH (08:11)
[2018-05-27] MEDS: LIDOCAINE 5% OINT 30 GM TOP SCH (08:11)
[2018-05-27] MEDS: SENOKOT S TAB PO SCH ×3 (08:12→21:00)
[2018-05-27] MEDS: CARVedilol 12.5 MG TAB PO SCH ×2 (08:13→21:32)
[2018-05-27] MEDS: EUCERIN 120GM CREAM TOP SCH ×3 (08:14→21:00)
[2018-05-27] MEDS: NYSTATIN 100,000 UNITS/GM TOPICAL PWD 15 GM TOP SCH ×2 (08:14→21:34)
[2018-05-27 08:29] LABS: ALBUMIN 1.9 GM/DL (3.2-5.2); CALCIUM LEVEL 7.9 MG/DL (8.8-10.2); CREATININE FOR GFR 3.26 MG/DL (0.70-1.30); GLOMERULAR FILTRATION RATE 19.9 (>42); PHOSPHORUS LEVEL 3.7 MG/DL (2.5-4.9); POTASSIUM SERUM 3.2 MEQ/L (3.5-5.1)
[2018-05-27] MEDS: **NOTE PATIENT COMMENT** MISC XX SCH (09:00)
[2018-05-27] MEDS: ISOSORBIDE DIN. (ISORDIL) 30 MG TAB PO SCH ×3 (09:00→21:31)
[2018-05-27 12:00] VITALS: BP 140/60
[2018-05-27] MEDS: POTASSIUM CHLORIDE 10 MEQ SR TABLET PO SCH ×2 (12:33→21:31)
[2018-05-27] MEDS: SPIRONOLACTONE 25 MG TAB PO SCH (12:34)
--- NOTE | 2018-05-27 13:49 | IPN ---
DATE: 05/27/2018 Connor actually looks better today. He says that he feels stronger. His color looks better. He seems to have rallied a bit. His renal function is improved from yesterday. Denies chest pain. No fever. No chills. PHYSICAL EXAMINATION: 110/50, pulse 93. GENERAL APPEARANCE: Chronically ill-appearing but he is smiling. Color is better. HEENT: Otherwise unremarkable. LUNGS: Decreased breath sounds but clear. HEART: Regular rate and rhythm with a 1/6 systolic ejection murmur. ABDOMEN: Soft, nontender. EXTREMITIES: Trace peripheral edema. LABORATORIES: His creatinine is down to 3.2, potassium 3.2. CBC is stable. IMPRESSION: 1. Cardiorenal syndrome. He is still on IV dobutamine. I was going to transfer him to the floor but hospital policy prohibits this so he is still using a progressive care unit (PCU) bed despite DO NOT RESUSCITATE status. Dobutamine was ordered by nephrology. 2. Enterococcus faecalis bacteremia. On ampicillin with an end date of 06/01/2018. 3. Anemia secondary to gastrointestinal bleeding. Eliquis on hold. Would not tolerate an esophagogastroduodenoscopy (EGD). 4. Diabetes. I stopped his Detemir insulin. His blood sugars are running low, have rebounded off the insulin. Currently he is on fingersticks but not receiving any insulin. If he becomes hyperglycemic, could restart Detemir at a reduced dose, but he was only receiving 6 units a day when I stopped it. As noted previously, diabetic complications are unlikely to be a significant problem considering his other medical conditions that are likely to worsen his short term prognosis. 5. Hypokalemia. Supplemental potassium has been given. 6. Non sustained ventricular tachycardia. This is despite normalized potassium and magnesium levels. He is a DO NOT RESUSCITATE.
--- NOTE | 2018-05-27 14:58 | IPN ---
DATE: 05/26/2018 SUBJECTIVE: Patient was seen and examined at the bedside today morning. His was also present at the bedside. Patient is hemodynamically stable. He reports that his shortness of breath is getting better today as compared with yesterday. There is improvement in his creatinine, which came down to 3.6 today. He has a good urine output with the current dose of diuretics. OBJECTIVE: Vital signs: Temperature is 98 degrees Fahrenheit, blood pressure 136/86, pulse is 87, respiratory rate of 20, saturating 98% on nasal cannula at 1 liter. Intake and output: Urine output recorded is 2.6 liters yesterday, 1.3 liters so far today since overnight. Weight in the bed scale is 86.2 kg. PHYSICAL EXAMINATION: GENERAL: Patient is awake, alert, oriented times three. HEAD AND NECK: Pupils equally round and reactive to light. Mucous membranes are moist. Neck is supple. Mildly elevated jugular venous distention (JVD). CARDIOVASCULAR: S1, S2, irregular rate. Edema 1+ of the thighs. RESPIRATORY: Mildly decreased breath sounds at the bases. Otherwise no active rales or rhonchi. He was unable to sit up for me. ABDOMEN: Soft, obese. Positive bowel sounds. GENITOURINARY: He has an indwelling Hampton catheter. Urine in the bag is clear. MUSCULOSKELETAL: Chronic venous stasis changes of the bilateral lower extremities. Edema 1+ of the thighs. CENTRAL NERVOUS SYSTEM: He is oriented times three. He was able to follow commands and communicate with me. Moves bilateral upper extremities. He does not get up because of severe back pain. LABORATORY REVIEW: CBC showed a WBC 5.7, hemoglobin 9.3, platelets 133. BMP showed sodium 144, potassium 3.4, chloride 104, bicarbonate 26, BUN 41, creatinine is 3.6, calcium is 7.7. CURRENT INPATIENT MEDICATIONS: Patient's medications were all reviewed by me. He continues to be on intravenous (IV) dobutamine drip. He is also on Lasix 6 mg IV every 12 hours. No other change in the medications today as compared with yesterday. ASSESSMENT AND PLAN: 1. Acute kidney injury superimposed on chronic kidney disease, stage III. It is cardiorenal in nature. Patient is not a candidate for Entresto at this point. Continue the dobutamine infusion and IV Lasix twice a day. Renal output is improving. His creatinine is also improved today as compared with yesterday. Creatinine is down to 3.6. Continue the current management at this point. 2. 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 Patient is currently on Lasix. Urine output is improving. He is in negative fluid balance every day. Continue to monitor daily urine output. Continue current dose of Coreg, hydralazine, and isosorbide. 3. Hypertension with chronic kidney disease and hypertensive heart disease. Continue current dose of carvedilol 25 mg by mouth twice a day, hydralazine 20 mg by mouth every 8 hours, isosorbide dinitrate 30 mg by mouth three times a day. No use of angiotensin-converting enzyme (ABY) or angiotensin receptor masood (ARB) at this point because of acute renal failure. 4. Hypokalemia. It is secondary to aggressive diuresis. Patient was given a dose of potassium chloride 40 mEq by mouth times one dose today. 5. Enterococcus faecalis bacteremia and discitis. Patient is on IV ampicillin. Dose is decreased because of acute renal failure. 6. Urinary retention. Continue the Hampton catheter at this point. DISPOSITION: Patient will need to stay in the telemetry unit until he is on dobutamine infusion. Once his renal function improves back to his baseline, his dobutamine will be stopped and patient will be transferred out of telemetry.
[2018-05-27 20:00] VITALS: BP 190/92
[2018-05-27] MEDS: LIDOCAINE 5% (LIDODERM) PATCH TD SCH (21:33)
[2018-05-28] VITALS: BP 126/68
[2018-05-28 04:00] VITALS: BP 160/62
[2018-05-28 05:02] LABS: HEMOGLOBIN 9.3 g/dl (13.5-17.5); MEAN CORPUSCULAR VOLUME 83.3 fl (80.0-96.0); PLATELET COUNT, AUTOMATED 124 10^3/uL (150-450); RED BLOOD COUNT 3.72 10^6/uL (4.30-6.10); WHITE BLOOD COUNT 5.1 10^3/uL (4.0-10.0)
[2018-05-28] MEDS: SODIUM CHLORIDE 0.9% INJ 10 ML SYR IV SCH ×2 (05:10→17:07)
[2018-05-28 05:27] LABS: CALCIUM LEVEL 7.9 MG/DL (8.8-10.2); CREATININE FOR GFR 2.64 MG/DL (0.70-1.30); GLOMERULAR FILTRATION RATE 25.4 (>42); POTASSIUM SERUM 3.3 MEQ/L (3.5-5.1)
[2018-05-28] MEDS: AMPICILLIN SOD 2 GM in D5W MINI-BAG PLUS 100 ML IV SCH ×2 (05:38→17:07)
[2018-05-28] MEDS: **hydrALAZINE** 10 MG TAB PO SCH ×3 (05:38→21:49)
[2018-05-28 08:00] VITALS: BP 130/68
[2018-05-28] MEDS: PANTOPRAZOLE 40MG TAB (PROTONIX) PO SCH (08:46)
[2018-05-28] MEDS: MULTIVITAMINS/MINERALS THERAP 1 TAB PO SCH (08:46)
[2018-05-28] MEDS: ATORVASTATIN 20 MG TAB PO SCH (08:46)
[2018-05-28] MEDS: SPIRONOLACTONE 25 MG TAB PO SCH (08:46)
[2018-05-28] MEDS: FEBUXOSTAT 40 MG TABLET (ULORIC) PO SCH (08:47)
[2018-05-28] MEDS: FERROUS SULFATE 325MG TAB PO SCH (08:47)
[2018-05-28] MEDS: traMADol 50 MG TAB PO SCH ×4 (08:47→21:51)
[2018-05-28] MEDS: POTASSIUM CHLORIDE 10 MEQ SR TABLET PO SCH ×2 (08:47→21:49)
[2018-05-28] MEDS: ISOSORBIDE DIN. (ISORDIL) 30 MG TAB PO SCH ×3 (08:48→21:48)
[2018-05-28] MEDS: DRONABINOL 2.5 MG CAP (MARINOL) PO SCH ×3 (08:48→17:06)
[2018-05-28] MEDS: ASPIRIN 81 MG ENTERIC TAB PO SCH (08:48)
[2018-05-28] MEDS: CARVedilol 12.5 MG TAB PO SCH ×2 (08:49→21:52)
[2018-05-28] MEDS: NYSTATIN 100,000 UNITS/GM TOPICAL PWD 15 GM TOP SCH ×2 (09:00→21:54)
[2018-05-28] MEDS: EUCERIN 120GM CREAM TOP SCH ×2 (09:00→21:00)
[2018-05-28] MEDS: SENOKOT S TAB PO SCH ×3 (09:00→21:48)
[2018-05-28] MEDS: LIDOCAINE 5% OINT 30 GM TOP SCH (09:00)
[2018-05-28] MEDS: MIRALAX *UNIT DOSE* 17GM PACKET PO SCH ×2 (09:00→21:00)
[2018-05-28] MEDS: **NOTE PATIENT COMMENT** MISC XX SCH (09:00)
[2018-05-28 12:00] VITALS: BP 136/77
--- NOTE | 2018-05-28 12:37 | IPN ---
DATE: 05/27/2018 SUBJECTIVE: Patient was seen and examined at the bedside today morning. The patient reports that he is feeling better today as compared with yesterday. His shortness of breath is also improving. The patient has very good urine output. Renal function is also slowly improving. Creatinine is down to 3.2. He still has hypokalemia, which is being replenished with oral potassium. He denies any other active complaints apart from the weakness and inability to walk. OBJECTIVE: Vital signs: Temperature is 97.8 degrees Fahrenheit, blood pressure 140/60, pulse is 81, respiratory rate of 20, saturating 98% on nasal cannula at 1 liter. Intake and output: Urine output recorded as 1.8 liters yesterday, 900 mL so far today since overnight. Weight on the bed scale is 83.8 kg. PHYSICAL EXAMINATION: GENERAL: Patient is awake, alert, oriented times three. Laying in bed. No apparent distress. HEAD AND NECK: Extraocular muscles intact. Pupils equally round and reactive to light. Mildly elevated jugular venous distention (JVD). CARDIOVASCULAR: S1, S2, irregular rate. Trace edema in the bilateral lower extremities. RESPIRATORY: Mildly decreased breath sounds at the bases. Otherwise no active rales or rhonchi. ABDOMEN: Soft, obese. Positive bowel sounds. GENITOURINARY: He has a Hampton catheter. MUSCULOSKELETAL: Chronic venous stasis changes and trace edema of the bilateral lower extremities. There is some edema in the thighs as well. CENTRAL NERVOUS SYSTEM: He is oriented times three. Able to follow commands. Moves bilateral upper extremities. LABORATORY REVIEW: CBC: This morning CBC is not available. BMP showed sodium 143, potassium 3.2, chloride 103, bicarbonate 25, BUN 38, creatinine is 3.2, phosphorous is 3.7. CURRENT INPATIENT MEDICATIONS: Patient's medications were all reviewed by me. He continues to be on dobutamine drip and he is on Lasix 60 mg IV every 12 hours. He has been started on spironolactone 25 mg by mouth daily. He is on potassium chloride 40 mEq by mouth twice a day. ASSESSMENT AND PLAN: 1. Acute kidney injury superimposed on chronic kidney disease, stage III. The patient is being treated for cardiorenal syndrome and Entresto was stopped for acute kidney injury. He is currently on Lasix and dobutamine drip. Renal output is improving. He is negative fluid balance every day. Continue the current management at this time. 2. 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 Patient was in oliguric renal failure. He did get started on dobutamine. Continue the dobutamine for inotrope support at this point. The patient is being diuresed. Dobutamine will be stopped once the patient's renal function improves back to baseline. Continue current dose of Coreg, hydralazine and isosorbide. 3. Hypertension with chronic kidney disease and hypertensive heart disease. Continue current dose of Coreg 25 mg by mouth twice a day, hydralazine 20 mg by mouth every 8 hours, isosorbide dinitrate 30 mg by mouth three times a day. Entresto was stopped because of acute renal failure. 4. Hypokalemia. It is secondary to diuresis. Patient is on potassium chloride 40 mEq by mouth twice a day. I have started the patient on spironolactone 25 mg by mouth daily as well. 5. Enterococcus faecalis with bacteremia and discitis. Patient is on IV ampicillin. Last dose will be on 06/01/2018. DISPOSITION: Patient's dobutamine will be stopped when his renal function improves back to his baseline and at that point he can be transferred to a medical/surgical floor.
[2018-05-28] MEDS: FUROSEMIDE 100 MG/10 ML VIAL (J1940) IV SCH ×2 (13:37)
[2018-05-28 16:00] VITALS: BP 111/62
--- NOTE | 2018-05-28 16:00 | IPNPDOC ---
Date Seen The patient was seen on 05/28/18. Progress Note SUBJECTIVE: Patient seen and examined at bedside, in no apparent distress, no events overnight, remains on dobutamine drip and lasix 60 q12, cr improving 4 to 2. 67 OBJECTIVE PHYSICAL EXAMINATION: VITAL SIGNS: Please see below. GENERAL: well nourished NAD HEENT: normocephalic, atraumatic CARDIOVASCULAR: irregularly irregular. no MGR RESPIRATORY: good air entry, no crackles ABDOMINAL: soft, non tender, non distended + BS EXTREMITIES: no edema, no calf tenderness NEUROLOGICAL: A&OX3, no focal deficits LABORATORY DATA, IMAGING STUDIES, MICROBIOLOGY: Please see below. DVT prophylaxis ordered?: SCD ASSESSMENT AND PLAN: 72 year old presented with back pain noted to have discitis and enterococcal bacteremia, acute renal failure PROBLEMS: 1. Amp S enteroccocal bacteremia 2/2 discitis: on ampicillin, stop calvin 06/01/18. repeat BC neg 2.acute renal failure on CKD: renal on board. ? cardio-renal syndrome. Pt has intact EF echo 05/02/18 . diasdtolic dysfunction, right sided heart failure. this may have also been precipitated by bacteremia/ discitis. entresto held. continue dobutamine drip and lasix 60 mg BID as per renal 3. diastolic CHF, pulmonary HTN, cor pulmonale: continue lasix. on Imdur and hydralazine , spironolactone 4. CAD/ HPL/ HTN: coreg, ASA, hydralazine, cardio consult appreciated. 5. gout: continue uloric 6. A.fib: s/p PPM: AC held due to bleed, rate controlled on coreg, will restart eliquis and monitor Hb closely in am VS, I&O, 24H, [facility] Vital Signs/I&O Vital Signs Date Time Temp Pulse Resp B/P (MAP) Pulse Ox O2 Delivery O2 Flow Rate FiO2 05/28/18 12:00 98.2 82 18 136/77 (96) 98 Nasal Cannula 1.0 I&O- Last 24 Hours up to 6 AM 05/28/18 06:00 Intake Total 280 ml Output Total 1775 ml Balance -1495 ml Laboratory Data 24H LABS Laboratory Tests 2 05/27/18 18:40: Bedside Glucose (Misc Panel) 119H 05/28/18 04:43: Nucleated Red Blood Cells % (auto) 0.0, Anion Gap 10, Glomerular Filtration Rate 25.4L, Blood Urea Nitrogen 36H, Creatinine 2.64H, Sodium Level 143, Potassium Level 3.3L, Chloride Level 104, Carbon Dioxide Level 29, Calcium Level 7.9L CBC/BMP Laboratory Tests 05/28/18 04:43 Red Blood Count 3.72 L, Mean Corpuscular Volume 83.3, Mean Corpuscular Hemoglobin 25.0 L, Mean Corpuscular Hemoglobin Concent 30.0 L, Red Cell Distribution Width 17.3 H, Calcium Level 7.9 L TUESDAY,ARLENE LEVIN May 28, 2018 16:00
[2018-05-28 20:00] VITALS: BP 157/76
[2018-05-28] MEDS: APIXABAN 2.5 MG TAB (ELIQUIS) PO SCH (21:52)
[2018-05-28] MEDS: LIDOCAINE 5% (LIDODERM) PATCH TD SCH (21:53)
[2018-05-28] MEDS: ANALGESIC BALM CRM 120 GM TOP PRN (21:54)
[2018-05-29] VITALS (7 sets, daily range): BP systolic 105–149; BP diastolic 52–84
[2018-05-29] MEDS: FUROSEMIDE 100 MG/10 ML VIAL (J1940) IV SCH ×2 (00:23→12:14)
[2018-05-29] MEDS: AMPICILLIN SOD 2 GM in D5W MINI-BAG PLUS 100 ML IV SCH ×2 (05:07→17:15)
[2018-05-29 05:10] LABS: HEMATOCRIT 30.1 % (42.0-52.0); HEMOGLOBIN 9.2 g/dl (13.5-17.5); MEAN CORPUSCULAR HEMOGLOBIN 25.6 pg (27.0-33.0); MEAN CORPUSCULAR HGB CONC 30.6 g/dl (32.0-36.5); MEAN CORPUSCULAR VOLUME 83.6 fl (80.0-96.0); PLATELET COUNT, AUTOMATED 137 10^3/uL (150-450); WHITE BLOOD COUNT 5.3 10^3/uL (4.0-10.0)
[2018-05-29] MEDS: **hydrALAZINE** 10 MG TAB PO SCH ×3 (05:13→22:00)
[2018-05-29] MEDS: SODIUM CHLORIDE 0.9% INJ 10 ML SYR IV SCH ×2 (05:13→17:14)
[2018-05-29 06:22] LABS: CALCIUM LEVEL 7.5 MG/DL (8.8-10.2); CREATININE FOR GFR 2.22 MG/DL (0.70-1.30); GLOMERULAR FILTRATION RATE 31.1 (>42); POTASSIUM SERUM 3.8 MEQ/L (3.5-5.1)
[2018-05-29] MEDS: FERROUS SULFATE 325MG TAB PO SCH ×2 (09:00→09:08)
[2018-05-29] MEDS: SENOKOT S TAB PO SCH ×3 (09:00→20:34)
[2018-05-29] MEDS: MULTIVITAMINS/MINERALS THERAP 1 TAB PO SCH ×2 (09:00→09:09)
[2018-05-29] MEDS: **NOTE PATIENT COMMENT** MISC XX SCH (09:00)
[2018-05-29] MEDS: SPIRONOLACTONE 25 MG TAB PO SCH (09:08)
[2018-05-29] MEDS: CALCITRIOL 0.25 MCG CAP (S0169) PO SCH (09:08)
[2018-05-29] MEDS: POTASSIUM CHLORIDE 10 MEQ SR TABLET PO SCH ×2 (09:08→20:34)
[2018-05-29] MEDS: DRONABINOL 2.5 MG CAP (MARINOL) PO SCH ×3 (09:08→16:51)
[2018-05-29] MEDS: ATORVASTATIN 20 MG TAB PO SCH (09:08)
[2018-05-29] MEDS: traMADol 50 MG TAB PO SCH ×4 (09:09→22:00)
[2018-05-29] MEDS: ASPIRIN 81 MG ENTERIC TAB PO SCH (09:09)
[2018-05-29] MEDS: PANTOPRAZOLE 40MG TAB (PROTONIX) PO SCH (09:09)
[2018-05-29] MEDS: LIDOCAINE 5% OINT 30 GM TOP SCH (09:10)
[2018-05-29] MEDS: FEBUXOSTAT 40 MG TABLET (ULORIC) PO SCH (09:10)
[2018-05-29] MEDS: APIXABAN 2.5 MG TAB (ELIQUIS) PO SCH ×2 (09:10→20:34)
[2018-05-29] MEDS: MIRALAX *UNIT DOSE* 17GM PACKET PO SCH ×2 (09:11→20:34)
[2018-05-29] MEDS: NYSTATIN 100,000 UNITS/GM TOPICAL PWD 15 GM TOP SCH ×2 (09:11→20:35)
[2018-05-29] MEDS: CARVedilol 12.5 MG TAB PO SCH ×2 (09:14→20:34)
[2018-05-29] MEDS: ISOSORBIDE DIN. (ISORDIL) 30 MG TAB PO SCH ×3 (09:14→20:34)
--- NOTE | 2018-05-29 11:31 | REP ---
Clinical: CHF. Comparison: 05/24/2018. Findings: Stable cardiomegaly. Lung kohler demonstrate improved aeration with decreased pulmonary vascular congestion and edema. Trace residual left basilar atelectasis suggested. A small layering right effusion cannot be excluded. No pneumothorax. Evidence of sternotomy, CABG, pacemaker, and right PICC line. Impression: Improved aeration with decreased pulmonary vascular congestion/interstitial edema. Trace residual left basilar atelectasis and possible subtle layering right effusion. Electronically Signed by Amandeep Donnelly MD 05/29/2018 11:22 A
[2018-05-29] MEDS: EUCERIN 120GM CREAM TOP SCH ×2 (12:12→20:34)
[2018-05-29] MEDS: DOBUTamine HCL 500,000 MCG in APPROPRIATE DILUENT 1 EA IV SCH (16:52)
--- NOTE | 2018-05-29 17:20 | IPNPDOC ---
Date Seen The patient was seen on 05/29/18. Progress Note SUBJECTIVE: Patient is a -year-old [RACE] [GENDER] with OBJECTIVE SUBJECTIVE: Patient seen and examined at bedside, in no apparent distress, no events overnight, remains on dobutamine drip and lasix 60 q12, cr improving 4 >3>2.67>2.22 OBJECTIVE PHYSICAL EXAMINATION: VITAL SIGNS: Please see below. GENERAL: well nourished NAD HEENT: normocephalic, atraumatic CARDIOVASCULAR: irregularly irregular. no MGR RESPIRATORY: good air entry, no crackles ABDOMINAL: soft, non tender, non distended + BS EXTREMITIES: no edema, no calf tenderness NEUROLOGICAL: A&OX3, no focal deficits LABORATORY DATA, IMAGING STUDIES, MICROBIOLOGY: Please see below. DVT prophylaxis ordered?: Eliquis ASSESSMENT AND PLAN: 72 year old presented with back pain noted to have discitis and enterococcal bacteremia, acute renal failure PROBLEMS: 1. Amp S enteroccocal bacteremia 2/2 discitis: on ampicillin, stop calvin 06/01/18. repeat BC neg 2.acute renal failure on CKD: renal on board. ? cardio-renal syndrome. Pt has intact EF echo 05/02/18 . diasdtolic dysfunction, right sided heart failure. this may have also been precipitated by bacteremia/ discitis. entresto held. continue dobutamine drip and lasix 60 mg BID as per renal 3. diastolic CHF, pulmonary HTN, cor pulmonale: continue lasix. on Imdur and h ydralazine , spironolactone 4. CAD/ HPL/ HTN: coreg, ASA, hydralazine, cardio consult appreciated. 5. gout: continue uloric 6. A.fib: s/p PPM: AC held due to bleed, rate controlled on coreg, will restart eliquis and monitor Hb closely in am VS, I&O, 24H, [facility] Vital Signs/I&O Vital Signs Date Time Temp Pulse Resp B/P (MAP) Pulse Ox O2 Delivery O2 Flow Rate FiO2 05/29/18 16:51 132/58 05/29/18 16:00 97.2 17 17 99 Nasal Cannula 1.0 I&O- Last 24 Hours up to 6 AM 05/29/18 06:00 Intake Total 1076.8 ml Output Total 1250 ml Balance -173.2 ml Laboratory Data 24H LABS Laboratory Tests 2 05/29/18 04:13: Nucleated Red Blood Cells % (auto) 0.0, Anion Gap 10, Glomerular Filtration Rate 31.1L, Blood Urea Nitrogen 31H, Creatinine 2.22H, Sodium Level 143, Potassium Level 3.8, Chloride Level 104, Carbon Dioxide Level 29, Calcium Level 7.5L CBC/BMP Laboratory Tests 05/29/18 04:13 Red Blood Count 3.60 L, Mean Corpuscular Volume 83.6, Mean Corpuscular Hemoglobin 25.6 L, Mean Corpuscular Hemoglobin Concent 30.6 L, Red Cell Distribution Width 17.2 H, Calcium Level 7.5 L TUESDAY,ARLENE LEVIN May 29, 2018 17:20
[2018-05-29] MEDS: LIDOCAINE 5% (LIDODERM) PATCH TD SCH (20:33)
--- NOTE | 2018-05-29 22:33 | IPN ---
DATE OF SERVICE: 05/28/2018 SUBJECTIVE: The patient was seen and examined at the bedside today morning. The patient is afebrile, hemodynamically stable, lying in the bed. His renal function continue to improve. Creatinine is down to 2.6. He is diuresing very well with the current dose of diuretics. He continue to be on intravenous (IV) dobutamine infusion at this point. The patient himself reports that he is feeling better and his shortness of breath is improving too. OBJECTIVE: Vital signs: Temperature is 98.2 degrees Fahrenheit. Blood pressure 136/77. Pulse is 82. Respiratory rate of 18. Saturating 98% on nasal cannula at 1 liter. Intake and output: Urine output recorded is 2.4 liters yesterday, 500 mL so far today since overnight. Weight on the bed scale is 82.1 kg. PHYSICAL EXAMINATION: GENERAL: The patient is awake, alert, oriented times three. He is lying in bed in no apparent distress. HEAD AND NECK EXAM: Extraocular muscles are intact. Pupils are equally round and reactive to light. Mucous membranes are moist. Neck is supple. There is mildly elevated jugular venous distention (JVD). CARDIOVASCULAR: S1, S2 irregular rate. Very trace edema of the bilateral thighs. No edema in the legs. RESPIRATORY: Decreased breath sounds at the bases otherwise no active rales or rhonchi. ABDOMEN: Soft, obese, positive bowel sounds. Nontender. GENITOURINARY (): He has a Hampton catheter at this point. Urine in the bag is clear. MUSCULOSKELETAL: Chronic venous stasis changes of the bilateral lower extremities. No clubbing or cyanosis. 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 Power is 5/5 in bilateral upper extremities. LABORATORY REVIEW: Complete blood count (CBC) showed a white blood cell (WBC) of 5.1, hemoglobin is 9.3, platelets of 124. Basic metabolic panel (BMP) showed sodium 143, potassium 3.3, chloride 104, bicarbonate 29, BUN 36, creatinine is 2.6. It was 3.2 yesterday. Calcium 7.9. CURRENT INPATIENT MEDICATIONS: The patient's medications were all reviewed by me. He continues to be on - dobutamine - he continues to be on intravenous (IV) dobutamine drip - spironolactone - he was started on spironolactone 25 mg by mouth daily yesterday - Lasix - he continues to be on Lasix injections 60 mg every 12 hours ASSESSMENT AND PLAN: 1. Acute kidney injury superimposed on chronic kidney disease (CKD) stage III. It is secondary to cardiorenal syndrome. He continues to be on IV dobutamine drip and a Lasix injection 60 mg every 12 hours. He has a very good urine output. Renal function continues to improve. Creatinine is down to 2.6. His baseline creatinine is 1.5. 2. 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 As mentioned above, the patient was in cardiorenal syndrome. He was short of breath and fluid overloaded. He has responded very well to dobutamine and Lasix drip. I expect that his dobutamine should be able to be stopped over the next 24 to 48 hours once his renal function improves. Continue current dose of Coreg, hydralazine and isosorbide. 3. Hypertension with chronic kidney disease and hypertensive heart disease. Continue current dose of Coreg 25 mg by mouth twice a day, hydralazine 20 mg every 8 hours and isosorbide 30 mg three times a day. 4. Hypokalemia. The patient continues to be on potassium chloride 40 mEq twice a day. He has also been started on spironolactone starting yesterday. Continue to monitor for now. 5. Enterococcus faecalis bacteremia. The patient continues to be on IV ampicillin. Dose was decreased to every 12 hours. If his renal function improves further then his dose will be increased. Last dose of antibiotics will be on June 01, 2018. DISPOSITION: The patient is DO NOT RESUSCITATE. Once his dobutamine is stopped he can be transferred to medical surgical floor.
[2018-05-30] VITALS: BP 145/74
[2018-05-30] MEDS: FUROSEMIDE 100 MG/10 ML VIAL (J1940) IV SCH
[2018-05-30 04:00] VITALS: BP 138/73
[2018-05-30] MEDS: **hydrALAZINE** 10 MG TAB PO SCH ×3 (05:31→20:59)
[2018-05-30] MEDS: SODIUM CHLORIDE 0.9% INJ 10 ML SYR IV SCH ×2 (05:31→17:54)
[2018-05-30] MEDS: AMPICILLIN SOD 2 GM in D5W MINI-BAG PLUS 100 ML IV SCH ×2 (05:32→17:54)
[2018-05-30 06:03] LABS: HEMATOCRIT 30.5 % (42.0-52.0); HEMOGLOBIN 9.3 g/dl (13.5-17.5); MEAN CORPUSCULAR HEMOGLOBIN 25.4 pg (27.0-33.0); MEAN CORPUSCULAR HGB CONC 30.5 g/dl (32.0-36.5); MEAN CORPUSCULAR VOLUME 83.3 fl (80.0-96.0); PLATELET COUNT, AUTOMATED 142 10^3/uL (150-450); RED BLOOD COUNT 3.66 10^6/uL (4.30-6.10); WHITE BLOOD COUNT 6.3 10^3/uL (4.0-10.0)
[2018-05-30 06:52] LABS: CALCIUM LEVEL 7.8 MG/DL (8.8-10.2); CREATININE FOR GFR 2.05 MG/DL (0.70-1.30); GLOMERULAR FILTRATION RATE 34.1 (>42); POTASSIUM SERUM 3.5 MEQ/L (3.5-5.1)
[2018-05-30] MEDS: DRONABINOL 2.5 MG CAP (MARINOL) PO SCH ×3 (07:38→17:52)
[2018-05-30 07:44] VITALS: BP 150/84
[2018-05-30] MEDS: POTASSIUM CHLORIDE 10 MEQ SR TABLET PO SCH ×3 (09:00→21:00)
[2018-05-30] MEDS: MULTIVITAMINS/MINERALS THERAP 1 TAB PO SCH (09:00)
[2018-05-30] MEDS: **NOTE PATIENT COMMENT** MISC XX SCH (09:00)
[2018-05-30] MEDS: ISOSORBIDE DIN. (ISORDIL) 30 MG TAB PO SCH ×3 (09:05→20:59)
[2018-05-30] MEDS: PANTOPRAZOLE 40MG TAB (PROTONIX) PO SCH (09:06)
[2018-05-30] MEDS: SENOKOT S TAB PO SCH ×2 (09:06→21:00)
[2018-05-30] MEDS: APIXABAN 2.5 MG TAB (ELIQUIS) PO SCH ×2 (09:06→20:58)
[2018-05-30] MEDS: FEBUXOSTAT 40 MG TABLET (ULORIC) PO SCH (09:06)
[2018-05-30] MEDS: SPIRONOLACTONE 25 MG TAB PO SCH ×2 (09:06→20:58)
[2018-05-30] MEDS: FERROUS SULFATE 325MG TAB PO SCH (09:07)
[2018-05-30] MEDS: ASPIRIN 81 MG ENTERIC TAB PO SCH (09:07)
[2018-05-30] MEDS: CARVedilol 12.5 MG TAB PO SCH ×2 (09:07→20:59)
[2018-05-30] MEDS: traMADol 50 MG TAB PO SCH ×4 (09:07→21:00)
[2018-05-30] MEDS: ATORVASTATIN 20 MG TAB PO SCH (09:07)
[2018-05-30] MEDS: EUCERIN 120GM CREAM TOP SCH ×2 (09:08→21:00)
[2018-05-30] MEDS: MIRALAX *UNIT DOSE* 17GM PACKET PO SCH ×2 (09:08→21:00)
[2018-05-30] MEDS: NYSTATIN 100,000 UNITS/GM TOPICAL PWD 15 GM TOP SCH ×2 (09:08→21:00)
[2018-05-30] MEDS: LIDOCAINE 5% OINT 30 GM TOP SCH (09:08)
--- NOTE | 2018-05-30 09:47 | IPN ---
DATE: 05/29/2018 Mr. Dixon is seen this morning on his bedside. He is awake and alert and able to answer questions appropriately. He is still very weak and not able to get up from the bed. He has been diuresed over last few days with good response. His weight is down to 82.7 kg today while he was 89.7 kg on May 24, 2018. Prior to this he had sepsis and required IV fluids which caused him to become hypervolemic. In any event, he is improved significantly and feeling much better. PHYSICAL EXAMINATION: Temperature is 97.3 degrees Fahrenheit, heart rate 82 per minute and respiratory rate 18 per minute. Blood pressure 149/84 mmHg and oxygen saturation 99% on 1 liter oxygen. Intake and output records from yesterday showed total intake 1076 and output 875. His head is atraumatic. There is no oral thrush or ulcers. Neck veins are difficult to be assessed as he is unable to turn his neck to the left side but I do not see any significant neck vein distension. Heart sounds are regular. Lungs have slightly diminished breath sounds at bases and few basilar rales. Abdomen is soft and nontender and without any palpable organomegaly. Bowel sounds are normal. Extremities have no cyanosis or clubbing. There is no peripheral edema. Neurologically he is awake and at his baseline mentation. Today's labs show WBC count 5.3, hemoglobin 9.2 and hematocrit 30.1. Platelets 137. Sodium 143, potassium 3.8, CO2 29, BUN 31 and creatinine 2.22. PROBLEMS: 1. Acute renal failure superimposed on chronic kidney disease: His creatinine was 4.0 on April, and has now come down to 2.2 today. This is almost about his baseline kidney function. His electrolytes are stable. He has no uremic symptoms and we will continue to monitor his kidney function closely. 2. Congestive heart failure, acute on chronic: His volume status is also improved with diuresis and he seems to be clinically euvolemic. We are going to get a chest x-ray today to confirm his volume status. Will consider to back off on the diuretics. Currently he is receiving furosemide 60 mg intravenously every 12 hours. He also remains on low-dose dobutamine drip and we will consider to wean him off over next 24 hours. 3. Secondary hyperparathyroidism: The patient remains on calcitriol 0.25 mcg three times a week. 4. Anemia: At present his anemia is stable and we will continue with iron supplement. 5. Hypokalemia related to diuretics and has already improved. His electrolytes will be checked again tomorrow morning. All in all Mr. Dixon is doing much better now and kidney function has improved significantly along with his volume status. We will continue to follow him along with you.
[2018-05-30 11:57] VITALS: BP 133/84
[2018-05-30] MEDS: FUROSEMIDE 40 MG TAB PO SCH ×2 (13:17→17:53)
--- NOTE | 2018-05-30 13:30 | IPN ---
DATE: 05/30/2018 Mr. Dixon is seen this morning on his bedside. He is feeling better and denies any nausea or vomiting. His dyspnea has improved and he is currently on 1 liter of oxygen only. He remains on dobutamine drip and also on intravenous Lasix intermittently. The patient denies any nausea or vomiting. Nursing staff reports that he has not been out of bed for about a week. On physical examination, temperature 97.4 degrees Fahrenheit, heart rate 82 per minute and respiratory rate 18 per minute. Blood pressure 150/84 mmHg and oxygen 100% on 1 liter oxygen. Intake and output records from yesterday showed total intake 766 and output 1425 with a negative balance of 606. His neck veins are difficult to be assessed. There is no oral thrush or ulcers. Pupils are equal and reactive to light and sclera is anicteric. Heart sounds are irregular in rhythm and lungs with slightly diminished breath sounds at bases. Abdomen soft and nontender. Bowel sounds are normal. Extremities have no cyanosis or clubbing. There is no peripheral edema at this time. Neurologically, he is at his baseline mentation. Today's labs show WBC count 6.3, hemoglobin 9.3 and hematocrit 30.5. Sodium 143, potassium 3.5, CO2 of 31, BUN 28 and creatinine 2.05. Glucose 135 and calcium 7.8. PROBLEMS: 1. Acute renal failure superimposed on chronic kidney disease. Kidney function has improved significantly and electrolytes are stable. He does not have any uremic symptoms. We will check renal profile again tomorrow morning. 2. Acute on chronic congestive heart failure. His volume status has also improved significantly since he has been diuresed. He remains on IV dobutamine infusion and also receiving IV Lasix. I am going to increase his spironolactone 225 mg twice a day and will also switch his Lasix to oral 40 mg twice a day. 3. Hypokalemia. His potassium level is just borderline at 3.5. He is receiving oral potassium supplement 40 mEq twice a day. We anticipate improvement in the potassium level as his spironolactone dose is being increased and his intravenous Lasix is being switched to oral. 4. Anemia. At present, his anemia is stable and no emergent intervention is indicated. 5. Generalized weakness and deconditioning. The patient has significant deconditioning and is likely to require subacute rehabilitation.
[2018-05-30 16:11] VITALS: BP 145/74
[2018-05-30] MEDS: DOBUTamine HCL 500,000 MCG in APPROPRIATE DILUENT 1 EA IV SCH (17:55)
[2018-05-30 20:00] VITALS: BP 140/66
[2018-05-30] MEDS: LIDOCAINE 5% (LIDODERM) PATCH TD SCH (21:00)
--- NOTE | 2018-05-30 23:44 | IPN ---
DATE OF SERVICE: 05/30/2018 Patient seen and examined. Continues to have trouble swallowing pills. Patient always vomited up pills. Denies any chest pain, pressure or discomfort. Reported respiration much improved. Reported back pain has also improved. VITAL SIGNS: Temperature 97.4, pulse 87, respirations 18, blood pressure 145/74, pulse oximetry 99% on 1 liter nasal cannula. LABORATORY: White blood cell (WBC) 6.3, hemoglobin and hematocrit (H and H) 9.3/30.5, platelets 142. Chemistry: Sodium 143, potassium 3.5, chloride 103, bicarbonate 31, BUN 28, creatinine 2.05. PHYSICAL EXAMINATION: GENERAL: The patient is frair, weak, in no acute distress. HEENT: Normocephalic, atraumatic. PULMONARY: Bilaterally clear. CARDIAC: Irregularly irregular, S1, S2. ABDOMEN: Soft, nontender, positive bowel sounds. EXTREMITIES: No edema. Venous stasis skin changes. ASSESSMENT AND PLAN: This is a 72-year-old patient with underlying medical history of atrial fibrillation, congestive heart failure with diastolic and systolic heart failure with diastolic and systolic dysfunction. Ejection fraction (EF) 35% to 40%. Coronary artery disease, diabetes, chronic kidney disease (CKD) stage III, gout, lumbar degenerative disc disease, spinal stenosis, radiculopathy, history of colon cancer, history of skin cancer, atrial insufficiency, iron deficiency anemia, dyslipidemia initially presented with weakness and diarrhea found to have Enterococcus faecalis bacteremia possibly from discitis. 1. Enterococcus faecalis bacteremia possibly secondary to discitis completing ampicillin. Stop date June 01, 2018. Infectious disease appreciated. Repeat blood culture has been negative. Workup including transesophageal echocardiogram ([facility]O) and echocardiogram has been done as well as bone scan. 2. Acute on chronic renal failure. Appreciate nephrology input. Possible cardiorenal syndrome. Patient currently on dobutamine drip and Lasix for diuresis. Further recommendations per nephrology. 3. Diastolic and systolic congestive heart failure. Ejection fraction 35% to 40% with pulmonary artery hypertension, cor pulmonale. Patient on Imdur, hydralazine, spironolactone as well as Lasix as well as dobutamine drip. Further recommendations as per nephrology. 4. Dysphagia. Speech and swallow evaluation appreciated. Patient refusing endoscopy but is agreeable for barium esophagram. Will perform barium esophagram. 5. Hypertension. Continue Lasix, spironolactone, isosorbide dinitrate, as well as hydralazine. Address blood pressure medications as needed. 6. Coronary artery disease with dyslipidemia and hypertension. Continue blood pressure medication as mentioned above. Continue aspirin. Cardiology was initially consulted. 7. Gout. Continue Uloric. 8. Atrial fibrillation. The patient has a pacemaker. Anticoagulation was initially held due to gastrointestinal (GI) bleed. Currently restarted Eliquis. Renally dose. Continue Coreg. 9. Hypokalemia. Spironolactone has increased. Oral supplementation potassium. 10. Generalized weakness and deconditioning. Will likely need short-term rehabilitation. 11. Acute blood loss anemia during this hospital admission. The patient did not tolerate endoscopy and has refused further intervention but hemoglobin and hematocrit (H and H) has been stable during the hospital course. Eliquis has been restarted. 12. Diabetes. The patient was persistently hypoglycemic currently not on any insulin. Will monitor closely. 13. Chronic back pain. Continue pain medication. 14. Stage II sacral decubitus ulcer. Wound care is ordered. 15. Deep vein thrombosis (DVT) prophylaxis. Patient restarted on Eliquis for atrial fibrillation (AFib). DISPOSITION: Poor long-term prognosis. Will complete antibiotics on June 01, 2018. Will need short-term rehabilitation. Further management as per nephrology.
[2018-05-31] VITALS (7 sets, daily range): BP systolic 115–146; BP diastolic 53–80
[2018-05-31] MEDS: **hydrALAZINE** 10 MG TAB PO SCH ×3 (05:08→21:22)
[2018-05-31] MEDS: SODIUM CHLORIDE 0.9% INJ 10 ML SYR IV SCH ×2 (05:14→17:31)
[2018-05-31] MEDS: AMPICILLIN SOD 2 GM in D5W MINI-BAG PLUS 100 ML IV SCH ×2 (05:14→17:30)
[2018-05-31 05:52] LABS: HEMATOCRIT 28.7 % (42.0-52.0); HEMOGLOBIN 8.8 g/dl (13.5-17.5); MEAN CORPUSCULAR HEMOGLOBIN 25.6 pg (27.0-33.0); MEAN CORPUSCULAR HGB CONC 30.7 g/dl (32.0-36.5); MEAN CORPUSCULAR VOLUME 83.4 fl (80.0-96.0); PLATELET COUNT, AUTOMATED 109 10^3/uL (150-450); RED BLOOD COUNT 3.44 10^6/uL (4.30-6.10)
[2018-05-31 06:42] LABS: CALCIUM LEVEL 7.9 MG/DL (8.8-10.2); CREATININE FOR GFR 1.94 MG/DL (0.70-1.30); GLOMERULAR FILTRATION RATE 36.3 (>42); PHOSPHORUS LEVEL 2.9 MG/DL (2.5-4.9); POTASSIUM SERUM 3.4 MEQ/L (3.5-5.1)
[2018-05-31] MEDS ORDERED: MAG SULF 1GM/100ML (MAG RUN) 1 GM in APPROPRIATE DILUENT 1 EA IV ONE (07:30)
[2018-05-31] MEDS ORDERED: E-Z-PAQUE 96% w/w SUSP 176GM BTL As Ordered ONE (09:11)
[2018-05-31] MEDS ORDERED: E-Z-HD 98% w/w 340GM SUSP BTL As Ordered ONE (09:14)
[2018-05-31] MEDS ORDERED: E-Z-GAS II EFFERVESCENT PACKET (SODIUM BICARB./CITRIC ACID/SIMETHICONE) As Ordered ONE (09:14)
[2018-05-31] MEDS: APIXABAN 2.5 MG TAB (ELIQUIS) PO SCH ×3 (10:08→21:22)
[2018-05-31] MEDS: CARVedilol 12.5 MG TAB PO SCH ×3 (10:09→21:22)
[2018-05-31] MEDS: ASPIRIN 81 MG ENTERIC TAB PO SCH ×2 (10:09→10:30)
[2018-05-31] MEDS: FERROUS SULFATE 325MG TAB PO SCH ×2 (10:10→10:30)
[2018-05-31] MEDS: ATORVASTATIN 20 MG TAB PO SCH ×2 (10:10→10:30)
[2018-05-31] MEDS: FEBUXOSTAT 40 MG TABLET (ULORIC) PO SCH ×2 (10:10→10:30)
[2018-05-31] MEDS: POTASSIUM CHLORIDE 10 MEQ SR TABLET PO SCH ×3 (10:10→21:00)
[2018-05-31] MEDS: FUROSEMIDE 40 MG TAB PO SCH ×3 (10:11→17:30)
[2018-05-31] MEDS: SPIRONOLACTONE 25 MG TAB PO SCH ×3 (10:11→21:22)
[2018-05-31] MEDS: MULTIVITAMINS/MINERALS THERAP 1 TAB PO SCH ×2 (10:11→10:30)
[2018-05-31] MEDS: ISOSORBIDE DIN. (ISORDIL) 30 MG TAB PO SCH ×4 (10:11→21:21)
[2018-05-31] MEDS: PANTOPRAZOLE 40MG TAB (PROTONIX) PO SCH ×2 (10:12→10:30)
[2018-05-31] MEDS: CALCITRIOL 0.25 MCG CAP (S0169) PO SCH ×2 (10:12→10:30)
[2018-05-31] MEDS: traMADol 50 MG TAB PO SCH ×5 (10:12→21:22)
[2018-05-31] MEDS: SENOKOT S TAB PO SCH ×3 (10:13→21:00)
[2018-05-31] MEDS: MIRALAX *UNIT DOSE* 17GM PACKET PO SCH ×3 (10:13→21:00)
[2018-05-31] MEDS: **NOTE PATIENT COMMENT** MISC XX SCH (10:13)
[2018-05-31] MEDS: NYSTATIN 100,000 UNITS/GM TOPICAL PWD 15 GM TOP SCH ×2 (10:14→21:00)
[2018-05-31] MEDS: EUCERIN 120GM CREAM TOP SCH ×4 (10:14→21:28)
[2018-05-31] MEDS: LIDOCAINE 5% OINT 30 GM TOP SCH (10:14)
[2018-05-31] MEDS: DRONABINOL 2.5 MG CAP (MARINOL) PO SCH ×4 (10:19→17:33)
[2018-05-31] MEDS: ONDANSETRON 4MG/2ML VIAL (J2405) IV PRN (12:21)
--- NOTE | 2018-05-31 15:53 | IPNPDOC ---
Text Note Date of Service The patient was seen on 05/31/18. NOTE Patient seen and examined. Continues to have trouble swallowing pills. P. Denies any chest pain, pressure or discomfort. PHYSICAL EXAMINATION: GENERAL: The patient is frair, weak, in no acute distress. HEENT: Normocephalic, atraumatic. PULMONARY: Bilaterally clear. CARDIAC: Irregularly irregular, S1, S2. ABDOMEN: Soft, nontender, positive bowel sounds. EXTREMITIES: No edema. Venous stasis skin changes. ASSESSMENT AND PLAN: This is a 72-year-old patient with underlying medical history of atrial fibrillation, congestive heart failure with diastolic and systolic heart failure with diastolic and systolic dysfunction. Ejection fraction (EF) 35% to 40%. Coronary artery disease, diabetes, chronic kidney disease (CKD) stage III, gout, lumbar degenerative disc disease, spinal stenosis, radiculopathy, history of colon cancer, history of skin cancer, atrial insufficiency, iron deficiency anemia, dyslipidemia initially presented with weakness and diarrhea found to have Enterococcus faecalis bacteremia possibly from discitis. 1. Enterococcus faecalis bacteremia possibly secondary to discitis completing ampicillin. Stop date June 01, 2018. Infectious disease appreciated. Repeat blood culture has been negative. Workup including transesophageal echoc ardiogram (LAUREANO) and echocardiogram has been done as well as bone scan. 2. Acute on chronic renal failure. Appreciate nephrology input. Possible cardiorenal syndrome. off dobutamine drip, continue Lasix for diuresis. Further recommendations per nephrology. 3. Diastolic and systolic congestive heart failure. Ejection fraction 35% to 40% with pulmonary artery hypertension, cor pulmonale. Patient on coreg, Imdur, hydralazine, spironolactone as well as Lasix, off dobutamine drip. Further recommendations as per nephrology. 4. Dysphagia. Speech and swallow evaluation appreciated. Patient refusing endoscopy but is agreeable for barium esophagram. Will perform barium esophagram. 5. Hypertension. Continue coreg Lasix, spironolactone, isosorbide dinitrate, as well as hydralazine. adjust med as needed 6. Coronary artery disease with dyslipidemia and hypertension. Continue blood pressure medication as mentioned above. Continue aspirin. Cardiology was initially consulted. 7. Gout. Continue Uloric. 8. Atrial fibrillation. The patient has a pacemaker. Anticoagulation was initially held due to gastrointestinal (GI) bleed. Currently restarted Eliquis. Renally dose. Continue Coreg. 9. Hypokalemia. Spironolactone has increased. Oral supplementation potassium. 10. Generalized weakness and deconditioning. supportive care. not progressing with pt 11. Acute blood loss anemia during this hospital admission. The patient did not tolerate endoscopy and has refused further intervention but hemoglobin and hematocrit (H and H) has been stable during the hospital course. Eliquis has been restarted. 12. Diabetes. The patient was persistently hypoglycemic currently not on any insulin. Will monitor closely. 13. Chronic back pain. Continue pain medication. 14. Stage II sacral decubitus ulcer. Wound care is ordered. 15. Deep vein thrombosis (DVT) prophylaxis. Patient restarted on Eliquis for atrial fibrillation (AFib). DISPOSITION: Poor long-term prognosis. Will complete antibiotics on June 01, 2018. Further management as per nephrology. Goals of care discussion held. Consulted hospice to inquire information about home with hospice. vs long-term vs hospice house VS,[facility], [facility] VS, [facility] Laboratory Tests 05/31/18 05:26 Red Blood Count 3.44 L, Mean Corpuscular Volume 83.4, Mean Corpuscular Hemoglobin 25.6 L, Mean Corpuscular Hemoglobin Concent 30.7 L, Red Cell Distribution Width 17.1 H, Anion Gap 8 Vital Signs Date Time Temp Pulse Resp B/P (MAP) Pulse Ox O2 Delivery O2 Flow Rate FiO2 05/31/18 14:00 124/68 05/31/18 13:18 20 05/31/18 12:07 97.3 72 96 Room Air 05/31/18 08:09 1.0 I&O- Last 24 Hours up to 6 AM 05/31/18 06:00 Intake Total 416.8 ml Output Total 350 ml Balance 66.8 ml DARY LUNDBERG MD May 31, 2018 15:53
--- NOTE | 2018-05-31 16:58 | IPN ---
DATE: 05/31/2018 Mr. Dixon was seen and examined this morning at bedside. He just returned from his barium swallow. He has been tolerating his meals and eating and drinking with no problems. He was not as communicative this morning as he had been in the last couple of days, for he is unhappy that he is still in the hospital. Per nursing, the patient has not been voluntarily getting out of bed, for it has been relatively more than a week. It is very difficult for him just to voluntarily move his hands just to do general motion. He continues to be on the dobutamine drip and is taking Lasix and spironolactone. The patient has no complaints today. Intake and output: Intake total reported yesterday was 416.8 mL with an output total of 675 mL with a balance of -258.2 mL. VITAL SIGNS: Temperature 97.8, pulse 89, respirations 18, blood pressure 122/80 (94), pulse oximetry of 100 on nasal cannula 1.0 liters. HEENT: Normocephalic with some scabbing of the left cheek. No open wounds with discharge noted. Has poor range of motion at the cervical region. Difficult to assess his neck veins. No visual oral thrush or ulcers noted. CARDIAC: Irregularly irregular. Positive S1, S2 sounds. PULMONARY: Bilaterally clear to auscultation but diminished breath sounds at the bases due to lack of effort. ABDOMEN: Soft and nontender. Positive bowel sounds in all four quadrants. EXTREMITIES: No lower extremity cyanosis, clubbing, or edema but does have venous stasis noted bilaterally at the shins. LABORATORY DATA: WBC 5.0, hemoglobin 8.8, hematocrit 28.7, platelets 109. Chemistry: Sodium 144, potassium 3.4, chloride 105, carbon dioxide 31, BUN 30, creatinine 1.94, GFR of 36.3, fasting glucose of 124, calcium 7.9, phosphorus 2.9, magnesium 1.6, albumin 2.0. PROBLEMS: 1. Acute renal failure superimposed on chronic kidney disease. Kidney function is improved significantly, and electrolytes are currently stable. He does not have any current uremic symptoms. 2. Acute on chronic congestive heart failure. His volume status has improved since he has been diuresed. We will start to taper his dobutamine so we can discontinue it. We will continue with the spironolactone 225 mg twice a day as well as his Lasix oral 40 mg twice a day. 3. Hypokalemia. Potassium levels today were 3.4. Yesterday was borderline 3.5. He is receiving oral potassium supplement of 40 mEq twice a day. Because we have increased the spironolactone dose and discontinued the intravenous (IV) Lasix, we do anticipate improvement of the potassium. We will continue to monitor. 4. Anemia, currently stable. No emergent intervention is needed. 5. Generalized weakness and deconditioning. He has had significant deconditioning and will require subacute rehabilitation. Have encouraged the patient to out of bed for meals and continue to work with physical therapy (PT). He probably will need halfway placement for subacute rehabilitation. Will refer to hospitalist team for further recommendations. My faculty preceptor for this patient encounter was physically present during the encounter and was fully available. All aspects of the patient interview, examination, medical decision making process, and medical care plan development were reviewed and approved by the faculty preceptor. The faculty preceptor is aware and concurs with the plan as stated in the body of this note and will attest to such by his/her co-signature.
--- NOTE | 2018-05-31 18:35 | REP ---
Esophagram The procedure was performed under the direct supervision of Dr. Mcbride. The images were reviewed with Dr. Mcbride. A single view PA chest x-ray is submitted as a light adjuster film. The patient is status post median sternotomy and CABG. There is a pacemaker in place as well as a right-sided PICC line there is cardiomegaly. There is hazy opacity at the right lung base which may represent pleural fluid. Exam is limited due to patient condition and mobility . Liquid barium was given in the supine oblique positions. The oral and pharyngeal stages of deglutition are unremarkable. Esophageal transport is prompt and efficient and there is no esophagitis, stricture or mucosal ring. There is a hiatal hernia. Gastroesophageal reflux is not demonstrated on this examination. Impression: Exam is limited due to patient condition and mobility. There is a hiatal hernia. Otherwise single contrast esophagram within normal limits. 1.4 minutes of fluoro time was utilized for this procedure. Reviewed by TOMASA Chanel 05/31/2018 04:41 P Electronically Signed by Rosalio Mcbride MD 05/31/2018 06:26 P
[2018-05-31] MEDS: LIDOCAINE 5% (LIDODERM) PATCH TD SCH ×3 (21:00→21:28)
[2018-06-01 04:00] VITALS: BP 135/71
[2018-06-01] MEDS: SODIUM CHLORIDE 0.9% INJ 10 ML SYR IV SCH ×2 (05:55→16:59)
[2018-06-01] MEDS: **hydrALAZINE** 10 MG TAB PO SCH ×3 (05:55→22:00)
[2018-06-01 06:31] LABS: HEMATOCRIT 28.8 % (42.0-52.0); HEMOGLOBIN 8.7 g/dl (13.5-17.5); MEAN CORPUSCULAR HEMOGLOBIN 25.5 pg (27.0-33.0); MEAN CORPUSCULAR HGB CONC 30.2 g/dl (32.0-36.5); MEAN CORPUSCULAR VOLUME 84.5 fl (80.0-96.0); PLATELET COUNT, AUTOMATED 123 10^3/uL (150-450); RED BLOOD COUNT 3.41 10^6/uL (4.30-6.10); WHITE BLOOD COUNT 5.2 10^3/uL (4.0-10.0)
[2018-06-01 06:50] LABS: CALCIUM LEVEL 8.1 MG/DL (8.8-10.2); CREATININE FOR GFR 2.18 MG/DL (0.70-1.30); GLOMERULAR FILTRATION RATE 31.7 (>42); MAGNESIUM LEVEL 1.8 MG/DL (1.8-2.4); POTASSIUM SERUM 3.4 MEQ/L (3.5-5.1)
[2018-06-01 08:00] VITALS: BP 112/57
[2018-06-01] MEDS: HumaLOG INSULIN (NovoLOG) PER UNIT SC SCH ×4 (08:04→21:00)
[2018-06-01] MEDS: MIRALAX *UNIT DOSE* 17GM PACKET PO SCH ×2 (08:04→21:13)
[2018-06-01] MEDS: POTASSIUM CHLORIDE 10% LIQ 20 MEQ/15 ML UDC PO SCH ×3 (08:05→21:13)
[2018-06-01] MEDS: EUCERIN 120GM CREAM TOP SCH ×3 (08:06→21:14)
[2018-06-01] MEDS: FEBUXOSTAT 40 MG TABLET (ULORIC) PO SCH (08:06)
[2018-06-01] MEDS: LIDOCAINE 5% OINT 30 GM TOP SCH (08:06)
[2018-06-01] MEDS: ISOSORBIDE DIN. (ISORDIL) 30 MG TAB PO SCH ×3 (08:07→21:12)
[2018-06-01] MEDS: CARVedilol 12.5 MG TAB PO SCH ×2 (08:07→21:13)
[2018-06-01] MEDS: ATORVASTATIN 20 MG TAB PO SCH (08:07)
[2018-06-01] MEDS: traMADol 50 MG TAB PO SCH ×4 (08:08→21:14)
[2018-06-01] MEDS: SENOKOT S TAB PO SCH ×2 (08:08→21:12)
[2018-06-01] MEDS: PANTOPRAZOLE 40MG TAB (PROTONIX) PO SCH (08:08)
[2018-06-01] MEDS: MULTIVITAMINS/MINERALS THERAP 1 TAB PO SCH (08:08)
[2018-06-01] MEDS: SPIRONOLACTONE 25 MG TAB PO SCH ×2 (08:08→21:13)
[2018-06-01] MEDS: DRONABINOL 2.5 MG CAP (MARINOL) PO SCH ×3 (08:08→16:57)
[2018-06-01] MEDS: APIXABAN 2.5 MG TAB (ELIQUIS) PO SCH ×2 (08:09→21:13)
[2018-06-01] MEDS: FERROUS SULFATE 325MG TAB PO SCH (08:09)
[2018-06-01] MEDS: FUROSEMIDE 40 MG TAB PO SCH ×2 (08:09→16:57)
[2018-06-01] MEDS: ASPIRIN 81 MG ENTERIC TAB PO SCH (08:09)
[2018-06-01] MEDS: NYSTATIN 100,000 UNITS/GM TOPICAL PWD 15 GM TOP SCH ×2 (08:10→21:14)
[2018-06-01] MEDS: **NOTE PATIENT COMMENT** MISC XX SCH (08:10)
[2018-06-01 12:00] VITALS: BP 151/76
[2018-06-01 16:00] VITALS: BP 124/60
--- NOTE | 2018-06-01 20:02 | IPNPDOC ---
Text Note Date of Service The patient was seen on 06/01/18. NOTE Patient seen and examined. Continues to have trouble swallowing pills. Pt Denies any chest pain, pressure or discomfort. PHYSICAL EXAMINATION: GENERAL: The patient is frair, weak, in no acute distress. HEENT: Normocephalic, atraumatic. PULMONARY: Bilaterally clear. CARDIAC: Irregularly irregular, S1, S2. ABDOMEN: Soft, nontender, positive bowel sounds. EXTREMITIES: No edema. Venous stasis skin changes. ASSESSMENT AND PLAN: This is a 72-year-old patient with underlying medical history of atrial fibrillation, congestive heart failure with diastolic and systolic heart failure with diastolic and systolic dysfunction. Ejection fraction (EF) 35% to 40%. Coronary artery disease, diabetes, chronic kidney disease (CKD) stage III, gout, lumbar degenerative disc disease, spinal stenosis, radiculopathy, history of colon cancer, history of skin cancer, atrial insufficiency, iron deficiency anemia, dyslipidemia initially presented with weakness and diarrhea found to have Enterococcus faecalis bacteremia possibly from discitis. 1. Enterococcus faecalis bacteremia possibly secondary to discitis completed ampicillin. 6 weeks. Infectious disease appreciated. Repeat blood culture has been negative. Workup including transesophageal echocardiogram (LAUREANO) and echocardiogram has been done as well as bone scan. 2. Acute on chronic renal failure. Appreciate nephrology input. Possible cardiorenal syndrome. off dobutamine drip, continue Lasix for diuresis. Further recommendations per nephrology. 3. Diastolic and systolic congestive heart failure. Ejection fraction 35% to 40% with pulmonary artery hypertension, cor pulmonale. Patient on coreg, Imdur, hydralazine, spironolactone as well as Lasix, off dobutamine drip. Further recommendations as per nephrology. 4. Dysphagia. Speech and swallow evaluation appreciated. Patient refusing endoscopy. esophagram neg. 5. Hypertension. Continue coreg Lasix, spironolactone, isosorbide dinitrate, as well as hydralazine. adjust med as needed 6. Coronary artery disease with dyslipidemia and hypertension. Continue blood pressure medication as mentioned above. Continue aspirin. Cardiology was initially consulted. 7. Gout. Continue Uloric. 8. Atrial fibrillation. The patient has a pacemaker. Anticoagulation was initially held due to gastrointestinal (GI) bleed. Currently restarted Eliquis. Renally dose. Continue Coreg. 9. Hypokalemia. Spironolactone has increased. Oral supplementation potassium. 10. Generalized weakness and deconditioning. supportive care. not progressing with pt 11. Acute blood loss anemia during this hospital admission. The patient did not tolerate endoscopy and has refused further intervention but hemoglobin and hematocrit (H and H) has been stable during the hospital course. Eliquis has been restarted. 12. Diabetes. The patient was persistently hypoglycemic currently not on any insulin. Will monitor closely. 13. Chronic back pain. Continue pain medication. 14. Stage II sacral decubitus ulcer. Wound care is ordered. 15. Deep vein thrombosis (DVT) prophylaxis. Patient restarted on Eliquis for atrial fibrillation (AFib). DISPOSITION: Poor long-term prognosis. Further management as per nephrology. Goals of care discussion held. Consulted hospice to inquire information about home with hospice. vs [facility] vs hospice house VS,[place], [facility] VS, [facility], [facility] Laboratory Tests 06/01/18 06:09 Red Blood Count 3.41 L, Mean Corpuscular Volume 84.5, Mean Corpuscular Hemoglobin 25.5 L, Mean Corpuscular Hemoglobin Concent 30.2 L, Red Cell Distribution Width 16.8 H, Calcium Level 8.1 L Vital Signs Date Time Temp Pulse Resp B/P (MAP) Pulse Ox O2 Delivery O2 Flow Rate FiO2 06/01/18 16:58 20 06/01/18 16:58 124/60 06/01/18 16:00 1.0 06/01/18 16:00 98.1 74 98 Nasal Cannula I&O- Last 24 Hours up to 6 AM 06/01/18 06:00 Intake Total 150 ml Output Total 800 ml Balance -650 ml DARY LUNDBERG MD Jun 01, 2018 20:02
[2018-06-01 20:49] VITALS: BP 141/60
[2018-06-01] MEDS: LIDOCAINE 5% (LIDODERM) PATCH TD SCH (21:00)
[2018-06-01 23:59] VITALS: BP 113/51
[2018-06-02 04:45] VITALS: BP 115/65
[2018-06-02] MEDS: **hydrALAZINE** 10 MG TAB PO SCH ×3 (06:00→22:00)
[2018-06-02] MEDS: SODIUM CHLORIDE 0.9% INJ 10 ML SYR IV SCH ×2 (06:00→17:14)
[2018-06-02 06:43] LABS: HEMATOCRIT 28.9 % (42.0-52.0); HEMOGLOBIN 8.7 g/dl (13.5-17.5); MEAN CORPUSCULAR HEMOGLOBIN 25.7 pg (27.0-33.0); MEAN CORPUSCULAR HGB CONC 30.1 g/dl (32.0-36.5); MEAN CORPUSCULAR VOLUME 85.5 fl (80.0-96.0); PLATELET COUNT, AUTOMATED 104 10^3/uL (150-450); RED BLOOD COUNT 3.38 10^6/uL (4.30-6.10); WHITE BLOOD COUNT 5.7 10^3/uL (4.0-10.0)
[2018-06-02 07:14] LABS: CALCIUM LEVEL 8.4 MG/DL (8.8-10.2); CREATININE FOR GFR 2.18 MG/DL (0.70-1.30); GLOMERULAR FILTRATION RATE 31.7 (>42); POTASSIUM SERUM 4.1 MEQ/L (3.5-5.1)
[2018-06-02 08:00] VITALS: BP 138/74
[2018-06-02] MEDS: NYSTATIN 100,000 UNITS/GM TOPICAL PWD 15 GM TOP SCH ×2 (08:05→19:36)
[2018-06-02] MEDS: EUCERIN 120GM CREAM TOP SCH ×2 (08:05→19:35)
[2018-06-02] MEDS: HumaLOG INSULIN (NovoLOG) PER UNIT SC SCH ×4 (08:05→19:35)
[2018-06-02] MEDS: POTASSIUM CHLORIDE 10% LIQ 20 MEQ/15 ML UDC PO SCH ×2 (08:05→19:35)
[2018-06-02] MEDS: LIDOCAINE 5% OINT 30 GM TOP SCH (08:06)
[2018-06-02] MEDS: MIRALAX *UNIT DOSE* 17GM PACKET PO SCH ×2 (08:06→19:34)
[2018-06-02] MEDS: CALCITRIOL 0.25 MCG CAP (S0169) PO SCH (08:09)
[2018-06-02] MEDS: FEBUXOSTAT 40 MG TABLET (ULORIC) PO SCH (08:09)
[2018-06-02] MEDS: ISOSORBIDE DIN. (ISORDIL) 30 MG TAB PO SCH ×3 (08:09→19:33)
[2018-06-02] MEDS: SENOKOT S TAB PO SCH ×2 (08:09→19:34)
[2018-06-02] MEDS: FERROUS SULFATE 325MG TAB PO SCH (08:10)
[2018-06-02] MEDS: ATORVASTATIN 20 MG TAB PO SCH (08:10)
[2018-06-02] MEDS: FUROSEMIDE 40 MG TAB PO SCH ×2 (08:10→17:13)
[2018-06-02] MEDS: APIXABAN 2.5 MG TAB (ELIQUIS) PO SCH ×2 (08:10→19:33)
[2018-06-02] MEDS: CARVedilol 12.5 MG TAB PO SCH ×2 (08:11→19:34)
[2018-06-02] MEDS: PANTOPRAZOLE 40MG TAB (PROTONIX) PO SCH (08:11)
[2018-06-02] MEDS: DRONABINOL 2.5 MG CAP (MARINOL) PO SCH ×2 (08:11→12:03)
[2018-06-02] MEDS: ASPIRIN 81 MG ENTERIC TAB PO SCH (08:11)
[2018-06-02] MEDS: MULTIVITAMINS/MINERALS THERAP 1 TAB PO SCH (08:12)
[2018-06-02] MEDS: SPIRONOLACTONE 25 MG TAB PO SCH ×2 (08:13→19:34)
[2018-06-02] MEDS: traMADol 50 MG TAB PO SCH ×4 (08:14→19:34)
[2018-06-02] MEDS: **NOTE PATIENT COMMENT** MISC XX SCH (08:14)
[2018-06-02 12:00] VITALS: BP 154/78
--- NOTE | 2018-06-02 12:42 | IPN ---
DATE: 06/02/2018 Mr. Dixon was seen and examined this morning at bedside. He states no complaint today. He dis not have an appetite at breakfast, though and did not eat. He has not had any vomiting episodes today and has tolerated his by mouth medications today. He has no complaints. He is able to articulate that he is at [facility] and it is June 02, 2018. He is unsure of what day it is, specifically. He does understand that he has been in the hospital for multiple days greater than 100-something days. He believes it is 200 days. He denies any shortness of breath, trouble breathing, chest pain, nausea or vomiting today. He has no other complaints. PHYSICAL EXAMINATION: VITALS: Temperature 98.2, pulse 85, irregular, respiration 18, blood pressure 138/74 (94), pulse ox 99% on nasal cannula 1 liter. Input and output in the last 24 hours: Intake total 780 mL, output total 525 mL with a balance of +255 mL. HEENT: Normocephalic, with some scabbing of the left cheek. No open wounds or discharge noted. Full range of motion of the cervical region. Difficult to assess the neck veins but no visible jugular venous distention (JVD) is noted on the left side. No visual or oral thrush are also noted in the mucous membranes. CARDIAC: Irregularly irregular. Rate controlled. Positive S1, S2 sounds. PULMONARY: Bilaterally clear to auscultation but diminished breath sounds due to lack of effort. ABDOMEN: Soft, nontender. Positive bowel sounds in all four quadrants. EXTREMITIES: No lower extremity cyanosis, clubbing or edema but does have venous status bilaterally noted at shins. LABORATORIES: WBC 5.7, hemoglobin 8.7, hematocrit 28.9, platelets 104. Chemistry: Sodium 144, potassium 4.1, chloride 105, carbon dioxide 34, BUN 29, creatinine 2.18, fasting glucose of 124, calcium 8.4. PROBLEMS: 1. Acute renal failure superimposed on chronic kidney disease. Kidney function is currently stable. BUN and creatinine ratio is 29/2.18. He is currently not exhibiting any uremic symptoms, though and he is having a urine output with current oral Lasix and spironolactone. Will continue to monitor. 2. Acute on chronic congestive heart failure: His volume status is currently improving since he is being diuresed. He will continue with the spironolactone and oral Lasix as prescribed. 3. Hypokalemia: Potassium levels have improved since discontinuing the IV Lasix and having the increase in spironolactone. He is also on daily potassium supplementation. We will continue to monitor and with the current therapy. If potassium continues to improve with the spironolactone can consider discontinuing potassium chloride supplementation. 4. Anemia: Currently stable. No intervention is needed. Will continue to monitor. 5. Generalized weakness and deconditioning: He has had significant deconditioning and will possibly request acute rehabilitation. We have encouraged the patient to get out of bed but the patient does have a flat affect and is very discouraged today. Will refer to the hospital team for possibly long-term placement for rehabilitation. My faculty preceptor for this patient encounter was physically present during the encounter and was fully available. All aspects of the patient interview, examination, medical decision making process, and medical care plan development were reviewed and approved by the faculty preceptor. The faculty preceptor is aware and concurs with the plan as stated in the body of this note and will attest to such by his/her co-signature.
[2018-06-02] MEDS ORDERED: ONDANSETRON 4 MG ORAL DISINTEGRATING TAB (Q0162 PER 1MG) PO PRN (14:15)
[2018-06-02 16:00] VITALS: BP 144/74
--- NOTE | 2018-06-02 19:24 | IPNPDOC ---
Text Note Date of Service The patient was seen on 06/02/18. NOTE Patient seen and examined. Continues to have trouble swallowing pills. Pt Denies any chest pain, pressure or discomfort. PHYSICAL EXAMINATION: GENERAL: The patient is frair, weak, in no acute distress. HEENT: Normocephalic, atraumatic. PULMONARY: Bilaterally clear. CARDIAC: Irregularly irregular, S1, S2. ABDOMEN: Soft, nontender, positive bowel sounds. EXTREMITIES: No edema. Venous stasis skin changes. ASSESSMENT AND PLAN: This is a 72-year-old patient with underlying medical history of atrial fibrillation, congestive heart failure with diastolic and systolic heart failure with diastolic and systolic dysfunction. Ejection fraction (EF) 35% to 40%. Coronary artery disease, diabetes, chronic kidney disease (CKD) stage III, gout, lumbar degenerative disc disease, spinal stenosis, radiculopathy, history of colon cancer, history of skin cancer, atrial insufficiency, iron deficiency anemia, dyslipidemia initially presented with weakness and diarrhea found to have Enterococcus faecalis bacteremia possibly from discitis. 1. Enterococcus faecalis bacteremia possibly secondary to discitis completed ampicillin. 6 weeks. Infectious disease appreciated. Repeat blood culture has been negative. Workup including transesophageal echocardiogram (LAUREANO) and echocardiogram has been done as well as bone scan. 2. Acute on chronic renal failure. Appreciate nephrology input. likely cardiorenal syndrome. off dobutamine drip, required dobutamine drip twice this admission, continue Lasix for diuresis. Further recommendations per nephrology. 3. Diastolic and systolic congestive heart failure. Ejection fraction 35% to 40% with pulmonary artery hypertension, cor pulmonale. Patient on coreg, Imdur, hydralazine, spironolactone as well as Lasix, off dobutamine drip. Further recommendations as per nephrology. 4. Dysphagia. Speech and swallow evaluation appreciated. Patient refusing endoscopy. esophagram neg. crush medication 5. Hypertension. Continue coreg Lasix, spironolactone, isosorbide dinitrate, as well as hydralazine. adjust med as needed 6. Coronary artery disease with dyslipidemia and hypertension. Continue blood pressure medication as mentioned above. Continue aspirin. Cardiology was initially consulted. 7. Gout. Continue Uloric. 8. Atrial fibrillation. The patient has a pacemaker. Anticoagulation was initially held due to gastrointestinal (GI) bleed. Currently restarted Eliquis. Renally dose. Continue Coreg. 9. Hypokalemia. Spironolactone has increased. Oral supplementation potassium. 10. Generalized weakness and deconditioning. supportive care. not progressing with pt 11. Acute blood loss anemia during this hospital admission. The patient did not tolerate endoscopy and has refused further intervention but hemoglobin and hematocrit (H and H) has been stable during the hospital course. Eliquis has been restarted. 12. Diabetes. The patient was persistently hypoglycemic currently not on any insulin. Will monitor closely. 13. Chronic back pain. Continue pain medication. 14. Stage II sacral decubitus ulcer. Wound care is ordered. 15. Deep vein thrombosis (DVT) prophylaxis. Patient restarted on Eliquis for atrial fibrillation (AFib). DISPOSITION: Poor long-term prognosis. Goals of care discussion held. Consulted hospice to inquire information about home with hospice. vs assisted vs hospice house [facility], [facility] VS, [facility], [facility] Laboratory Tests 06/02/18 06:27 Red Blood Count 3.38 L, Mean Corpuscular Volume 85.5, Mean Corpuscular Hemoglobin 25.7 L, Mean Corpuscular Hemoglobin Concent 30.1 L, Red Cell Distribution Width 16.8 H, Calcium Level 8.4 L Vital Signs Date Time Temp Pulse Resp B/P (MAP) Pulse Ox O2 Delivery O2 Flow Rate FiO2 06/02/18 17:14 18 06/02/18 17:14 144/74 06/02/18 16:00 1.0 06/02/18 16:00 98.1 89 95 Nasal Cannula I&O- Last 24 Hours up to 6 AM 06/02/18 06:00 Intake Total 780 ml Output Total 525 ml Balance 255 ml DARY LUNDBERG MD Jun 02, 2018 19:24
[2018-06-02] MEDS: LIDOCAINE 5% (LIDODERM) PATCH TD SCH (19:35)
[2018-06-02 20:00] VITALS: BP 141/83
[2018-06-02 23:59] VITALS: BP 145/70
[2018-06-03 04:00] VITALS: BP 168/80
[2018-06-03 05:51] LABS: HEMOGLOBIN 9.1 g/dl (13.5-17.5); MEAN CORPUSCULAR HEMOGLOBIN 25.8 pg (27.0-33.0); MEAN CORPUSCULAR HGB CONC 30.3 g/dl (32.0-36.5); PLATELET COUNT, AUTOMATED 130 10^3/uL (150-450); RED BLOOD COUNT 3.53 10^6/uL (4.30-6.10)
[2018-06-03] MEDS: SODIUM CHLORIDE 0.9% INJ 10 ML SYR IV SCH ×2 (06:00→18:00)
[2018-06-03 06:02] LABS: CALCIUM LEVEL 8.6 MG/DL (8.8-10.2); CREATININE FOR GFR 2.03 MG/DL (0.70-1.30); GLOMERULAR FILTRATION RATE 34.4 (>42); MAGNESIUM LEVEL 1.9 MG/DL (1.8-2.4); POTASSIUM SERUM 3.8 MEQ/L (3.5-5.1)
[2018-06-03] MEDS: **hydrALAZINE** 10 MG TAB PO SCH ×3 (06:08→21:13)
[2018-06-03 08:00] VITALS: BP 148/80
[2018-06-03] MEDS: FERROUS SULFATE 300MG/5ML UDC LIQUID PO SCH ×2 (09:00→09:55)
[2018-06-03] MEDS: MULTIVITAMIN/MINERALS LIQUID 15ML ORAL SYRINGE PO SCH ×2 (09:00→09:55)
[2018-06-03] MEDS: **NOTE PATIENT COMMENT** MISC XX SCH (09:00)
[2018-06-03] MEDS: HumaLOG INSULIN (NovoLOG) PER UNIT SC SCH ×4 (09:13→21:00)
[2018-06-03] MEDS: SPIRONOLACTONE 25 MG TAB PO SCH ×2 (09:16→21:13)
[2018-06-03] MEDS: ASPIRIN 81 MG CHEW TABLET PO SCH (09:16)
[2018-06-03] MEDS: SENOKOT S TAB PO SCH ×2 (09:16→21:14)
[2018-06-03] MEDS: APIXABAN 2.5 MG TAB (ELIQUIS) PO SCH ×2 (09:16→21:14)
[2018-06-03] MEDS: traMADol 50 MG TAB PO SCH ×5 (09:17→21:14)
[2018-06-03] MEDS: CARVedilol 12.5 MG TAB PO SCH ×2 (09:17→21:15)
[2018-06-03] MEDS: ATORVASTATIN 20 MG TAB PO SCH ×2 (09:17→09:55)
[2018-06-03] MEDS: POTASSIUM CHLORIDE 10% LIQ 20 MEQ/15 ML UDC PO SCH ×2 (09:18→21:13)
[2018-06-03] MEDS: MIRALAX *UNIT DOSE* 17GM PACKET PO SCH ×2 (09:18→21:12)
[2018-06-03] MEDS: EUCERIN 120GM CREAM TOP SCH ×2 (09:19→21:16)
[2018-06-03] MEDS: LIDOCAINE 5% OINT 30 GM TOP SCH (09:19)
[2018-06-03] MEDS: NYSTATIN 100,000 UNITS/GM TOPICAL PWD 15 GM TOP SCH ×2 (09:19→21:16)
[2018-06-03] MEDS: FUROSEMIDE 40 MG TAB PO SCH ×2 (09:39→17:59)
[2018-06-03] MEDS: ISOSORBIDE DIN. (ISORDIL) 30 MG TAB PO SCH ×3 (09:39→21:12)
[2018-06-03] MEDS: FEBUXOSTAT 40 MG TABLET (ULORIC) PO SCH (09:55)
[2018-06-03 11:30] VITALS: BP 148/80
[2018-06-03] MEDS: LANSOPRAZOLE SUSPENSION 30 MG/10 ML ORAL SYRINGE (FIRST-LANSOPRAZOLE) PO SCH (13:35)
[2018-06-03 16:00] VITALS: BP 145/80
--- NOTE | 2018-06-03 16:58 | IPNPDOC ---
Text Note Date of Service The patient was seen on 06/03/18. NOTE Patient seen and examined. Continues to have trouble swallowing pills. observed tolerating pills one at a time. refused crushing pills. Pt Denies any chest pain, pressure or discomfort. PHYSICAL EXAMINATION: GENERAL: The patient is frair, weak, in no acute distress. HEENT: Normocephalic, atraumatic. PULMONARY: Bilaterally clear. CARDIAC: Irregularly irregular, S1, S2. ABDOMEN: Soft, nontender, positive bowel sounds. EXTREMITIES: No edema. Venous stasis skin changes. ASSESSMENT AND PLAN: This is a 72-year-old patient with underlying medical history of atrial fibrillation, congestive heart failure with diastolic and systolic heart failure with diastolic and systolic dysfunction. Ejection fraction (EF) 35% to 40%. Coronary artery disease, diabetes, chronic kidney disease (CKD) stage III, gout, lumbar degenerative disc disease, spinal stenosis, radiculopathy, history of colon cancer, history of skin cancer, atrial insufficiency, iron deficiency anemia, dyslipidemia initially presented with weakness and diarrhea found to have Enterococcus faecalis bacteremia possibly from discitis. 1. Enterococcus faecalis bacteremia possibly secondary to discitis completed ampicillin. 6 weeks. Infectious disease appreciated. Repeat blood culture has been negative. Workup including transesophageal echocardiogram (LAUREANO) and echocardiogram has been done as well as bone scan. 2. Acute on chronic renal failure. Appreciate nephrology input. likely cardiorenal syndrome. off dobutamine drip, required dobutamine drip twice this admission, continue Lasix for diuresis. Further recommendations per nephrology. 3. Diastolic and systolic congestive heart failure. Ejection fraction 35% to 40% with pulmonary artery hypertension, cor pulmonale. Patient on coreg, Imdur, hydralazine, spironolactone as well as Lasix, off dobutamine drip. Further recommendations as per nephrology. 4. Dysphagia. Speech and swallow evaluation appreciated. Patient refusing endoscopy. esophagram neg. take medication one at a time 5. Hypertension. Continue coreg Lasix, spironolactone, isosorbide dinitrate, as well as hydralazine. adjust med as needed 6. Coronary artery disease with dyslipidemia and hypertension. Continue blood pressure medication as mentioned above. Continue aspirin. Cardiology was initially consulted. 7. Gout. Continue Uloric. 8. Atrial fibrillation. The patient has a pacemaker. Anticoagulation was initially held due to gastrointestinal (GI) bleed. Currently restarted Eliquis. Renally dose. Continue Coreg. 9. Hypokalemia. Spironolactone has increased. Oral supplementation potassium. 10. Generalized weakness and deconditioning. supportive care. not progressing with pt 11. Acute blood loss anemia during this hospital admission. The patient did not tolerate endoscopy and has refused further intervention but hemoglobin and hematocrit (H and H) has been stable during the hospital course. Eliquis has been restarted. 12. Diabetes. The patient was persistently hypoglycemic currently not on any insulin. Will monitor closely. 13. Chronic back pain. Continue pain medication. 14. Stage II sacral decubitus ulcer. Wound care is ordered. 15. Deep vein thrombosis (DVT) prophylaxis. Patient restarted on Eliquis for atrial fibrillation (AFib). DISPOSITION: Poor long-term prognosis. Goals of care discussion held. Consulted hospice consulted [facility], [facility], [facility] Laboratory Tests 06/03/18 05:12 Red Blood Count 3.53 L, Mean Corpuscular Volume 85.0, Mean Corpuscular Hemoglobin 25.8 L, Mean Corpuscular Hemoglobin Concent 30.3 L, Red Cell Distribution Width 16.8 H, Calcium Level 8.6 L Vital Signs Date Time Temp Pulse Resp B/P (MAP) Pulse Ox O2 Delivery O2 Flow Rate FiO2 06/03/18 16:00 97.6 101 20 145/80 (101) 100 Nasal Cannula 1.0 I&O- Last 24 Hours up to 6 AM 06/03/18 06:00 Intake Total 660 ml Output Total 900 ml Balance -240 ml DARY LUNDBERG MD Jun 03, 2018 16:58
--- NOTE | 2018-06-03 17:49 | IPN ---
DATE: Mr. Dixon is seen this morning on his bedside. His is present in the room, and the patient seems to be more appropriate in answering questions. He was able to tell me the month correctly but could not tell me the day of the week . He knows that he is at [facility]. He denies any vomiting or diarrhea but does report poor appetite. PHYSICAL EXAMINATION: Temperature 98.6 degrees Fahrenheit, heart rate 90 per minute, respiratory rate 20 per minute, blood pressure 148/80 mm of mercury, and oxygen saturation 96% on 1 liter oxygen. His head is atraumatic. Neck is supple, and jugular venous distention (JVD) is only mildly elevated. There is no oral thrush or ulcers. Heart sounds are irregular in rhythm, and lungs have diminished breath sounds at bases. Abdomen soft and nontender, and bowel sounds are normal. Extremities have no cyanosis or clubbing. Neurologically, he is awake and able to answer simple questions. He is not very well oriented to time. Today's labs show WBC count 6.0, hemoglobin 9.1, hematocrit 30.0, platelets 130. Sodium 142, potassium 3.8, chloride 104, CO2 of 30, BUN 29, creatinine 2.03, glucose 116, and calcium 8.6. PROBLEMS: 1. Acute on chronic congestive heart failure. His volume status seems stable and reasonably well compensated. We will continue with current dose of diuretics for now, as his oral intake is not too much. 2. Acute renal failure superimposed on chronic kidney disease. Kidney function is slightly improved compared with yesterday, and electrolytes are within normal range. We will continue with current management. The patient is not at any risk for dialysis. 3. Anemia. Overall his anemia has been stable, and there is no emergent indication for a transfusion. 4. Generalized weakness and deconditioning. Patient has severe deconditioning and has not been able to get out of bed. I have advised the nursing staff to get him out of bed at least in the stretcher chair.
[2018-06-03 20:00] VITALS: BP 158/70
[2018-06-03] MEDS: LIDOCAINE 5% (LIDODERM) PATCH TD SCH (21:14)
[2018-06-03] MEDS: ONDANSETRON 4MG/2ML VIAL (J2405) IV PRN (21:15)
[2018-06-03 23:59] VITALS: BP 140/64
[2018-06-04 04:00] VITALS: BP 164/56
[2018-06-04 05:50] LABS: HEMATOCRIT 27.7 % (42.0-52.0); HEMOGLOBIN 8.3 g/dl (13.5-17.5); MEAN CORPUSCULAR HEMOGLOBIN 25.7 pg (27.0-33.0); MEAN CORPUSCULAR VOLUME 85.8 fl (80.0-96.0); PLATELET COUNT, AUTOMATED 128 10^3/uL (150-450); RED BLOOD COUNT 3.23 10^6/uL (4.30-6.10); WHITE BLOOD COUNT 5.1 10^3/uL (4.0-10.0)
[2018-06-04 06:12] LABS: CALCIUM LEVEL 8.7 MG/DL (8.8-10.2); CREATININE FOR GFR 1.88 MG/DL (0.70-1.30); GLOMERULAR FILTRATION RATE 37.6 (>42); MAGNESIUM LEVEL 1.9 MG/DL (1.8-2.4); POTASSIUM SERUM 3.5 MEQ/L (3.5-5.1)
[2018-06-04] MEDS: **hydrALAZINE** 10 MG TAB PO SCH ×3 (06:20→21:16)
[2018-06-04] MEDS: SODIUM CHLORIDE 0.9% INJ 10 ML SYR IV SCH ×2 (06:21→18:18)
[2018-06-04] MEDS: HumaLOG INSULIN (NovoLOG) PER UNIT SC SCH ×4 (07:30→21:00)
[2018-06-04 08:00] VITALS: BP 147/79
[2018-06-04] MEDS: MULTIVITAMIN/MINERALS LIQUID 15ML ORAL SYRINGE PO SCH ×2 (09:00→12:48)
[2018-06-04] MEDS: SENOKOT S TAB PO SCH ×2 (09:00→21:00)
[2018-06-04] MEDS: LIDOCAINE 5% OINT 30 GM TOP SCH ×2 (09:00→12:49)
[2018-06-04] MEDS: FERROUS SULFATE 300MG/5ML UDC LIQUID PO SCH (09:00)
[2018-06-04] MEDS: MIRALAX *UNIT DOSE* 17GM PACKET PO SCH ×2 (09:00→21:00)
[2018-06-04] MEDS: **NOTE PATIENT COMMENT** MISC XX SCH (09:00)
[2018-06-04] MEDS: POTASSIUM CHLORIDE 10% LIQ 20 MEQ/15 ML UDC PO SCH ×2 (11:03→21:16)
[2018-06-04] MEDS: FEBUXOSTAT 40 MG TABLET (ULORIC) PO SCH (11:05)
[2018-06-04] MEDS: traMADol 50 MG TAB PO SCH ×4 (11:05→21:17)
[2018-06-04] MEDS: APIXABAN 2.5 MG TAB (ELIQUIS) PO SCH ×2 (11:06→21:17)
[2018-06-04] MEDS: SPIRONOLACTONE 25 MG TAB PO SCH ×2 (11:06→21:18)
[2018-06-04] MEDS: CARVedilol 12.5 MG TAB PO SCH ×2 (11:07→21:18)
[2018-06-04] MEDS: FUROSEMIDE 40 MG TAB PO SCH ×2 (11:08→18:17)
[2018-06-04] MEDS: ISOSORBIDE DIN. (ISORDIL) 30 MG TAB PO SCH ×3 (11:09→21:19)
[2018-06-04] MEDS: ASPIRIN 81 MG CHEW TABLET PO SCH (11:10)
[2018-06-04 11:57] VITALS: BP 139/79
[2018-06-04] MEDS: NYSTATIN 100,000 UNITS/GM TOPICAL PWD 15 GM TOP SCH ×2 (12:49→21:19)
[2018-06-04] MEDS: EUCERIN 120GM CREAM TOP SCH ×2 (12:49→21:19)
[2018-06-04] MEDS: LANSOPRAZOLE SUSPENSION 30 MG/10 ML ORAL SYRINGE (FIRST-LANSOPRAZOLE) PO SCH (12:49)
[2018-06-04] MEDS ORDERED: POTASSIUM CHLORIDE 10 MEQ SR TABLET PO ONE (14:30)
[2018-06-04 16:00] VITALS: BP 138/65
--- NOTE | 2018-06-04 20:04 | IPNPDOC ---
Text Note Date of Service The patient was seen on 06/04/18. NOTE Patient seen and examined. Tolerating pills one at a time Pt Denies any chest pain, pressure or discomfort. PHYSICAL EXAMINATION: GENERAL: The patient is frair, weak, in no acute distress. HEENT: Normocephalic, atraumatic. PULMONARY: Bilaterally clear. CARDIAC: Irregularly irregular, S1, S2. ABDOMEN: Soft, nontender, positive bowel sounds. EXTREMITIES: No edema. Venous stasis skin changes. ASSESSMENT AND PLAN: This is a 72-year-old patient with underlying medical history of atrial fibrillation, congestive heart failure with diastolic and systolic heart failure with diastolic and systolic dysfunction. Ejection fraction (EF) 35% to 40%. Coronary artery disease, diabetes, chronic kidney disease (CKD) stage III, gout, lumbar degenerative disc disease, spinal stenosis, radiculopathy, history of colon cancer, history of skin cancer, atrial insufficiency, iron deficiency anemia, dyslipidemia initially presented with weakness and diarrhea found to have Enterococcus faecalis bacteremia possibly from discitis. 1. Enterococcus faecalis bacteremia possibly secondary to discitis completed ampicillin. 6 weeks. Infectious disease appreciated. Repeat blood culture has been negative. Workup including transesophageal echocardiogram (LAUREANO) and echocardiogram has been done as well as bone scan. 2. Acute on chronic renal failure. Appreciate nephrology input. likely cardiorenal syndrome. off dobutamine drip, required dobutamine drip twice this admission, continue Lasix for diuresis. Further recommendations per nephrology. 3. Diastolic and systolic congestive heart failure. Ejection fraction 35% to 40% with pulmonary artery hypertension, cor pulmonale. Patient on coreg, Imdur, hydralazine, spironolactone as well as Lasix, off dobutamine drip. Further recommendations as per nephrology. 4. Dysphagia. Speech and swallow evaluation appreciated. Patient refusing endoscopy. esophagram neg. take medication one at a time 5. Hypertension. Continue coreg Lasix, spironolactone, isosorbide dinitrate, as well as hydralazine. adjust med as needed 6. Coronary artery disease with dyslipidemia and hypertension. Continue blood pressure medication as mentioned above. Continue aspirin. Cardiology was initially consulted. 7. Gout. Continue Uloric. 8. Atrial fibrillation. The patient has a pacemaker. Anticoagulation was initially held due to gastrointestinal (GI) bleed. Currently restarted Eliquis. Renally dose. Continue Coreg. 9. Hypokalemia. Spironolactone has increased. Oral supplementation potassium. 10. Generalized weakness and deconditioning. supportive care. not progressing with pt 11. Acute blood loss anemia during this hospital admission. The patient did not tolerate endoscopy and has refused further intervention but hemoglobin and hematocrit (H and H) has been stable during the hospital course. Eliquis has been restarted. 12. Diabetes. The patient was persistently hypoglycemic currently not on any insulin. Will monitor closely. 13. Chronic back pain. Continue pain medication. 14. Stage II sacral decubitus ulcer. Wound care is ordered. 15. Deep vein thrombosis (DVT) prophylaxis. Patient restarted on Eliquis for atrial fibrillation (AFib). DISPOSITION: Poor long-term prognosis. Goals of care discussion held. Consulted hospice consulted [facility], [facility] Laboratory Tests 06/04/18 04:59 Red Blood Count 3.23 L, Mean Corpuscular Volume 85.8, Mean Corpuscular Hemoglobin 25.7 L, Mean Corpuscular Hemoglobin Concent 30.0 L, Red Cell Distribution Width 16.5 H, Calcium Level 8.7 L Vital Signs Date Time Temp Pulse Resp B/P (MAP) Pulse Ox O2 Delivery O2 Flow Rate FiO2 06/04/18 18:17 97.5 71 18 138/65 98 Nasal Cannula 1.0 I&O- Last 24 Hours up to 6 AM 06/04/18 06:00 Intake Total 360 ml Output Total 950 ml Balance -590 ml DARY LUNDBERG MD Jun 04, 2018 20:04
[2018-06-04 21:00] VITALS: BP 121/57
[2018-06-04] MEDS: LIDOCAINE 5% (LIDODERM) PATCH TD SCH ×2 (21:00→21:20)
[2018-06-04] MEDS: ATORVASTATIN 20 MG TAB PO SCH (21:17)
[2018-06-04 23:59] VITALS: BP 134/76
[2018-06-05 04:45] VITALS: BP 127/57
[2018-06-05] MEDS: SODIUM CHLORIDE 0.9% INJ 10 ML SYR IV SCH ×2 (04:54→17:09)
[2018-06-05] MEDS: **hydrALAZINE** 10 MG TAB PO SCH ×3 (04:55→20:59)
[2018-06-05 05:31] LABS: HEMATOCRIT 25.4 % (42.0-52.0); HEMOGLOBIN 7.7 g/dl (13.5-17.5); MEAN CORPUSCULAR HEMOGLOBIN 25.7 pg (27.0-33.0); MEAN CORPUSCULAR HGB CONC 30.3 g/dl (32.0-36.5); MEAN CORPUSCULAR VOLUME 84.7 fl (80.0-96.0); PLATELET COUNT, AUTOMATED 111 10^3/uL (150-450); WHITE BLOOD COUNT 3.5 10^3/uL (4.0-10.0)
[2018-06-05 05:46] LABS: CALCIUM LEVEL 8.1 MG/DL (8.8-10.2); CREATININE FOR GFR 1.87 MG/DL (0.70-1.30); GLOMERULAR FILTRATION RATE 37.9 (>42); MAGNESIUM LEVEL 1.6 MG/DL (1.8-2.4)
[2018-06-05] MEDS: HumaLOG INSULIN (NovoLOG) PER UNIT SC SCH ×4 (07:29→21:00)
--- NOTE | 2018-06-05 07:46 | IPN ---
DATE OF VISIT: 06/04/2018 Mr. Dixon is seen this morning on his bedside. His is present in the room and the patient has no significant change in the last 24 hours. He remains mostly bed-bound and has been declining to get in the chair. His reports that he did drink Ensure and also had some other liquids, but does not eat much. He has no nausea or vomiting. He denies any fever or chills. He remains on 1 liter of oxygen and oxygen saturation is between 96% and 100%. On physical exam, temperature is 97.8 degrees Fahrenheit, heart rate 92 per minute and respiratory rate 18 per minute. Blood pressure 139/79 mmHg and oxygen saturation 96%. His head is atraumatic. Neck is supple and jugular venous distention (JVD) is not abnormally elevated. Heart sounds are irregular in rhythm. Lungs with slightly diminished breath sounds at bases and poor inspiratory effort. Abdomen: Soft and nontender. Bowel sounds are normal. Extremities have no cyanosis or clubbing. Neurologically, he is awake and able to answer simple questions. Today's labs show WBC count 5.1, hemoglobin 8.3 and hematocrit 27.7. Platelets 128. Sodium 144, potassium 3.5, CO2 31, BUN 27 and creatinine 1.88. Calcium is 8.7 and magnesium 1.9. PROBLEMS: 1. Acute on chronic congestive heart failure. His volume status is reasonably well-compensated and he remains on spironolactone 25 mg twice a day and furosemide 40 mg twice a day. No changes are being made today. 2. Acute kidney injury superimposed on chronic kidney disease. Kidney function is also stable at about baseline and he has no uremic symptoms. 3. Hypokalemia. This is related to diuretic use and poor oral intake. He is not eating much. He remains on potassium supplement and electrolytes are being checked on a daily basis. He is currently on liquid potassium chloride 40 mEq twice a day. I will give him an extra dose of potassium chloride 20 mEq now and recheck his electrolytes tomorrow. 4. Anemia. His anemia is mostly stable. No emergent need for transfusion at this point. 5. Generalized weakness and deconditioning. The patient remains mostly bed-bound and has been declining to get out of bed. I have discussed with him and explained to his that he needs to start getting out of bed and start moving. He does not seem to be a suitable candidate for acute rehab and is likely to require subacute rehab.
[2018-06-05] MEDS ORDERED: MAG SULF 1GM/100ML (MAG RUN) 1 GM in APPROPRIATE DILUENT 1 EA IV ONE (08:00)
[2018-06-05] MEDS: FERROUS SULFATE 300MG/5ML UDC LIQUID PO SCH (08:24)
[2018-06-05] MEDS: POTASSIUM CHLORIDE 10% LIQ 20 MEQ/15 ML UDC PO SCH ×2 (08:24→20:59)
[2018-06-05] MEDS: EUCERIN 120GM CREAM TOP SCH ×2 (08:25→21:01)
[2018-06-05] MEDS: LANSOPRAZOLE SUSPENSION 30 MG/10 ML ORAL SYRINGE (FIRST-LANSOPRAZOLE) PO SCH (08:25)
[2018-06-05] MEDS: MULTIVITAMIN/MINERALS LIQUID 15ML ORAL SYRINGE PO SCH (08:25)
[2018-06-05] MEDS: NYSTATIN 100,000 UNITS/GM TOPICAL PWD 15 GM TOP SCH ×2 (08:25→21:01)
[2018-06-05] MEDS: traMADol 50 MG TAB PO SCH ×4 (08:26→20:58)
[2018-06-05] MEDS: SPIRONOLACTONE 25 MG TAB PO SCH ×2 (08:26→20:57)
[2018-06-05] MEDS: FUROSEMIDE 40 MG TAB PO SCH ×2 (08:27→17:08)
[2018-06-05] MEDS: CARVedilol 12.5 MG TAB PO SCH ×2 (08:27→20:58)
[2018-06-05] MEDS: MIRALAX *UNIT DOSE* 17GM PACKET PO SCH ×2 (08:28→21:00)
[2018-06-05] MEDS: ASPIRIN 81 MG CHEW TABLET PO SCH (08:28)
[2018-06-05] MEDS: SENOKOT S TAB PO SCH ×2 (08:28→20:57)
[2018-06-05] MEDS: FEBUXOSTAT 40 MG TABLET (ULORIC) PO SCH (08:28)
[2018-06-05] MEDS: ISOSORBIDE DIN. (ISORDIL) 30 MG TAB PO SCH ×3 (08:28→20:58)
[2018-06-05] MEDS: **NOTE PATIENT COMMENT** MISC XX SCH (08:29)
[2018-06-05 08:32] VITALS: BP 122/70
[2018-06-05] MEDS: CALCITRIOL 0.25 MCG CAP (S0169) PO SCH (12:15)
--- NOTE | 2018-06-05 12:18 | IPN ---
DATE: 06/05/2018 Mr. Dixon is seen this morning on his bedside. He is more alert and cooperative today. He has been eating only minimal. He denies any nausea, vomiting, dyspnea or chest pain. On physical examination, temperature 97.2 degrees Fahrenheit, heart rate 83 per minute and respiratory rate 18 per minute. Blood pressure 122/70 mmHg and oxygen saturation 97% on 1 liter oxygen. Intake and output records from yesterday are inaccurate, however, his urine output is recorded at 800 mL. His neck is supple and without jugular venous distention (JVD) or thyroid enlargement. His head is atraumatic. Heart sounds are irregular and lungs sound clear to auscultation. Abdomen is soft and bowel sounds are normal. Extremities have no cyanosis or clubbing. Neurologically, he is awake and able to answer simple questions. He seems more alert, though not very well oriented. Today's labs show WBC count 3.5, hemoglobin 7.7 and hematocrit 25.4. Platelets 111. Sodium 145, potassium 4.0, BUN 28 and creatinine 1.87. PROBLEMS: 1. Congestive heart failure. The patient seems clinically well-compensated and remains on Lasix and spironolactone. No changes are being made today. 2. Hypokalemia. He was given an extra dose of potassium yesterday and we will continue with twice a day potassium supplement. Potassium level has improved. 3. Acute on chronic kidney disease. His kidney function seems to be leveled off and this is most likely his baseline kidney function. 4. Anemia. His anemia is worsened and he is likely to require transfusion. I would suggest to transfuse him 2 units of packed red blood cells (RBCs). 5. Deconditioning and weakness. The patient is again being encouraged and nursing staff is also being advised to get him out of bed in the chair every day.
[2018-06-05 12:23] VITALS: BP 135/79
[2018-06-05 14:04] LABS: HEMATOCRIT 29.1 % (42.0-52.0); HEMOGLOBIN 8.9 g/dl (13.5-17.5)
--- NOTE | 2018-06-05 18:28 | IPNPDOC ---
Text Note Date of Service The patient was seen on 06/05/18. NOTE Patient seen and examined. Tolerating pills one at a time Denies any chest pain, pressure or discomfort. PHYSICAL EXAMINATION: GENERAL: The patient is frair, weak, in no acute distress. HEENT: Normocephalic, atraumatic. PULMONARY: Bilaterally clear. CARDIAC: Irregularly irregular, S1, S2. ABDOMEN: Soft, nontender, positive bowel sounds. EXTREMITIES: No edema. Venous stasis skin changes. ASSESSMENT AND PLAN: This is a 72-year-old patient with underlying medical history of atrial fibrillation, congestive heart failure with diastolic and systolic heart failure with diastolic and systolic dysfunction. Ejection fraction (EF) 35% to 40%. Coronary artery disease, diabetes, chronic kidney disease (CKD) stage III, gout, lumbar degenerative disc disease, spinal stenosis, radiculopathy, history of colon cancer, history of skin cancer, atrial insufficiency, iron deficiency anemia, dyslipidemia initially presented with weakness and diarrhea found to have Enterococcus faecalis bacteremia possibly from discitis. 1. Enterococcus faecalis bacteremia possibly secondary to discitis completed ampicillin. 6 weeks. Infectious disease appreciated. Repeat blood culture has been negative. Workup including transesophageal echocardiogram (LAUREANO) and echocardiogram has been done as well as bone scan. 2. Acute on chronic renal failure. Appreciate nephrology input. likely cardiorenal syndrome. off dobutamine drip, required dobutamine drip twice this admission, continue Lasix for diuresis. Further recommendations per nephrology. 3. Diastolic and systolic congestive heart failure. Ejection fraction 35% to 40% with pulmonary artery hypertension, cor pulmonale. Patient on coreg, Imdur, hydralazine, spironolactone as well as Lasix, off dobutamine drip. Further recommendations as per nephrology. 4. Dysphagia. Speech and swallow evaluation appreciated. Patient refusing endoscopy. esophagram neg. take medication one at a time 5. Hypertension. Continue coreg Lasix, spironolactone, isosorbide dinitrate, as well as hydralazine. adjust med as needed 6. Coronary artery disease with dyslipidemia and hypertension. Continue blood pressure medication as mentioned above. Continue aspirin. Cardiology was initially consulted. 7. Gout. Continue Uloric. 8. Atrial fibrillation. The patient has a pacemaker. hold eliquis again due to anemia and likely GI bleed. Continue Coreg. 9. Hypokalemia. Spironolactone has increased. Oral supplementation potassium. 10. Generalized weakness and deconditioning. supportive care. not progressing with pt 11. Acute blood loss anemia during this hospital admission. The patient did not tolerate endoscopy and has refused further intervention but hemoglobin and hematocrit (H and H) has been stable during the hospital course. Eliquis stopped again. transfused 12. Diabetes. The patient was persistently hypoglycemic currently not on any insulin. Will monitor closely. 13. Chronic back pain. Continue pain medication. 14. Stage II sacral decubitus ulcer. Wound care is ordered. 15. Deep vein thrombosis (DVT) prophylaxis. teds and SCD DISPOSITION: Poor long-term prognosis. Goals of care discussion held. Consulted hospice consulted [facility] Laboratory Tests 06/05/18 04:57 Red Blood Count 3.00 L, Mean Corpuscular Volume 84.7, Mean Corpuscular Hemoglobin 25.7 L, Mean Corpuscular Hemoglobin Concent 30.3 L, Red Cell Distribution Width 16.5 H, Calcium Level 8.1 L 06/05/18 13:43 Vital Signs Date Time Temp Pulse Resp B/P (MAP) Pulse Ox O2 Delivery O2 Flow Rate FiO2 06/05/18 17:08 18 06/05/18 17:07 150/82 06/05/18 16:00 1.0 06/05/18 12:23 97.2 62 98 Nasal Cannula I&O- Last 24 Hours up to 6 AM 06/05/18 06:00 Intake Total 320 ml Output Total 725 ml Balance -405 ml DARY LUNDBERG MD Jun 05, 2018 18:28
[2018-06-05 20:02] VITALS: BP 118/62
[2018-06-05] MEDS: ATORVASTATIN 20 MG TAB PO SCH (20:57)
[2018-06-05] MEDS: LIDOCAINE 5% (LIDODERM) PATCH TD SCH (20:57)
[2018-06-05 23:59] VITALS: BP 184/103
[2018-06-06 04:00] VITALS: BP 174/100
[2018-06-06] MEDS: SODIUM CHLORIDE 0.9% INJ 10 ML SYR IV SCH ×2 (05:47→17:20)
[2018-06-06] MEDS: **hydrALAZINE** 10 MG TAB PO SCH ×3 (05:49→21:32)
[2018-06-06 06:22] LABS: HEMATOCRIT 32.9 % (42.0-52.0); HEMOGLOBIN 10.2 g/dl (13.5-17.5); MEAN CORPUSCULAR HEMOGLOBIN 25.6 pg (27.0-33.0); MEAN CORPUSCULAR VOLUME 82.7 fl (80.0-96.0); PLATELET COUNT, AUTOMATED 150 10^3/uL (150-450); RED BLOOD COUNT 3.98 10^6/uL (4.30-6.10); WHITE BLOOD COUNT 5.9 10^3/uL (4.0-10.0)
[2018-06-06 06:37] LABS: CALCIUM LEVEL 8.9 MG/DL (8.8-10.2); CREATININE FOR GFR 1.79 MG/DL (0.70-1.30); GLOMERULAR FILTRATION RATE 39.8 (>42); POTASSIUM SERUM 4.4 MEQ/L (3.5-5.1)
[2018-06-06 08:00] VITALS: BP 140/78
[2018-06-06] MEDS: HumaLOG INSULIN (NovoLOG) PER UNIT SC SCH ×4 (08:24→21:57)
[2018-06-06] MEDS: FERROUS SULFATE 300MG/5ML UDC LIQUID PO SCH ×2 (08:25→08:30)
[2018-06-06] MEDS: LANSOPRAZOLE SUSPENSION 30 MG/10 ML ORAL SYRINGE (FIRST-LANSOPRAZOLE) PO SCH ×2 (08:25→08:30)
[2018-06-06] MEDS: POTASSIUM CHLORIDE 10% LIQ 20 MEQ/15 ML UDC PO SCH ×2 (08:25→21:32)
[2018-06-06] MEDS: EUCERIN 120GM CREAM TOP SCH ×2 (08:26→21:34)
[2018-06-06] MEDS: MULTIVITAMIN/MINERALS LIQUID 15ML ORAL SYRINGE PO SCH ×2 (08:26→08:30)
[2018-06-06] MEDS: NYSTATIN 100,000 UNITS/GM TOPICAL PWD 15 GM TOP SCH ×2 (08:26→21:34)
[2018-06-06] MEDS: ASPIRIN 81 MG CHEW TABLET PO SCH ×2 (08:27→08:30)
[2018-06-06] MEDS: CARVedilol 12.5 MG TAB PO SCH ×3 (08:27→21:33)
[2018-06-06] MEDS: LIDOCAINE 5% OINT 30 GM TOP SCH (08:27)
[2018-06-06] MEDS: SENOKOT S TAB PO SCH ×3 (08:28→21:00)
[2018-06-06] MEDS: FEBUXOSTAT 40 MG TABLET (ULORIC) PO SCH ×2 (08:28→08:30)
[2018-06-06] MEDS: ISOSORBIDE DIN. (ISORDIL) 30 MG TAB PO SCH ×4 (08:28→21:33)
[2018-06-06] MEDS: SPIRONOLACTONE 25 MG TAB PO SCH ×3 (08:29→21:33)
[2018-06-06] MEDS: FUROSEMIDE 40 MG TAB PO SCH ×3 (08:29→17:19)
[2018-06-06] MEDS: MIRALAX *UNIT DOSE* 17GM PACKET PO SCH ×2 (08:29→21:00)
[2018-06-06] MEDS: traMADol 50 MG TAB PO SCH ×5 (08:29→21:34)
[2018-06-06] MEDS: **NOTE PATIENT COMMENT** MISC XX SCH (08:31)
[2018-06-06 12:00] VITALS: BP 130/96
--- NOTE | 2018-06-06 15:04 | IPNPDOC ---
Text Note Date of Service The patient was seen on 06/06/18. NOTE Subjective: Denies CP/SOB/palpitations. No N/V/abd pain. Objective: Vitals: (see below) General: No acute distress, laying comfortably in bed. HEENT: Moist mucous membranes. Neck: No JVD or lymphadenopathy Cardiac: RRR, No murmurs Pulm: Diminished sounds and crackles at the bases b/l. No wheezing, rhonchi Abd: NT/ND + BS Ext: Trace edema bilateral lower extremities. No cyanosis. Moving all ext. Following commands. Labs (see below) Assessment/Plan 1. s/p Acute on chronic renal insufficiency. Baseline CKD stage III. Likely secondary to gentamicin, entresto, bacteremia. Improving. Appreciate Nephro input. 2. s/p Acute on chronic systolic and diastolic heart failure- Torsemide. Entresto on hold. Cont Statin, ASA. Cardiology consulted. s/p dobutamine. 3. s/p Enterococcus faecalis bacteremia- ? Source of colitis versus chronic cholecystitis. Appreciate Dr. Vang. On Rocephin and and ampicillin per Dr Palumbo. LAUREANO negative for vegetation. Bone scan negative. 4. Chronic back pain- CT lumbar spine appreciated. Patient states symptoms are improving. CT Thoracic/lumbar spine. Ortho consulted. Pain management consulted. Pain well controlled. 5. Chronic anemia likely secondary to anemia of chronic kidney disease- s/p 1 unit PRBC.Stable. No need for transfusion at this time. 6. Chronic AF - on eliquis. Cont bb. 7. DM - cont levemir SSI. 8. Diarrhea - resolved. 9. CAD - cont asa/bb/statin. Entresto held given renal function. DVT prophy: On eliquis Overall prognosis guarded Pending Hospice eval. VS,Fishbone, I+O VS, Fishbone, I+O Laboratory Tests 06/06/18 05:45 Red Blood Count 3.98 L, Mean Corpuscular Volume 82.7, Mean Corpuscular Hemoglobin 25.6 L, Mean Corpuscular Hemoglobin Concent 31.0 L, Red Cell D istribution Width 16.9 H, Calcium Level 8.9 Vital Signs Date Time Temp Pulse Resp B/P (MAP) Pulse Ox O2 Delivery O2 Flow Rate FiO2 06/06/18 13:56 136/96 06/06/18 12:03 18 06/06/18 12:00 1.0 06/06/18 08:00 97.7 89 94 Nasal Cannula I&O- Last 24 Hours up to 6 AM 06/06/18 06:00 Intake Total 1020 ml Output Total 1100 ml Balance -80 ml BISHOP LEVY MD Jun 06, 2018 15:04
[2018-06-06 16:00] VITALS: BP 130/100
[2018-06-06 20:00] VITALS: BP 140/68
[2018-06-06] MEDS: ATORVASTATIN 20 MG TAB PO SCH (21:32)
[2018-06-06] MEDS: LIDOCAINE 5% (LIDODERM) PATCH TD SCH (21:36)
--- NOTE | 2018-06-06 21:42 | IPN ---
DATE: 06/06/2018 Mr. Dixon is seen this morning on his bedside. He remains essentially unchanged. Nursing staff reports that he took only one pill and vomited. He has not been eating very well. He has been refusing to get out of bed. His chronic dyspnea has been unchanged, and he remains on 1 liter oxygen. He is now on daily dose of diuretic, which has been stable. PHYSICAL EXAMINATION: Temperature 97.8 degrees Fahrenheit, heart rate about 100 per minute, respiratory rate 20 per minute, blood pressure 140/78 mm of mercury, and oxygen saturation 94%. His head is atraumatic. Neck veins are not abnormally distended. There is no oral thrush or ulcers. Heart sounds are irregular in rhythm and lungs with slightly diminished breath sounds at bases. Abdomen soft and nontender. Bowel sounds are normal. Extremities have no cyanosis or clubbing. Neurologically, he is at his baseline mentation. Today's labs show WBC count 5.9, hemoglobin 10.2, and hematocrit 32.9 after he was transfused. Sodium is 141, potassium 4.4, CO2 of 29, BUN 27, and creatinine 1.79. PROBLEMS: 1. Acute on chronic kidney disease. His kidney function has been stable at baseline for the last 3 days. Electrolytes are also within normal range. 2. Congestive heart failure. At present his volume status has been very well compensated, and he will continue with current diuretics. No changes are being made today. 3. Anemia. His anemia did get worse yesterday, and he received transfusion. Today his anemia has improved again. 4. Generalized weakness and deconditioning. The patient has been mostly bedridden, and he has been refusing to get out of bed. I have encouraged him once again to try to cooperate with nursing staff to get out of bed. From a renal standpoint, the patient has been doing very well, and I am signing off his case. Please do not hesitate to call me back should you need any further assistance.
[2018-06-06 23:59] VITALS: BP 138/62
[2018-06-07] MEDS: ONDANSETRON 4MG/2ML VIAL (J2405) IV PRN (06:35)
[2018-06-07] MEDS: SODIUM CHLORIDE 0.9% INJ 10 ML SYR IV SCH ×2 (06:35→17:04)
[2018-06-07] MEDS: **hydrALAZINE** 10 MG TAB PO SCH ×3 (06:38→20:50)
[2018-06-07 07:11] LABS: HEMATOCRIT 32.6 % (42.0-52.0); MEAN CORPUSCULAR HGB CONC 30.7 g/dl (32.0-36.5); MEAN CORPUSCULAR VOLUME 84.7 fl (80.0-96.0); PLATELET COUNT, AUTOMATED 152 10^3/uL (150-450); RED BLOOD COUNT 3.85 10^6/uL (4.30-6.10); WHITE BLOOD COUNT 5.9 10^3/uL (4.0-10.0)
[2018-06-07 07:39] LABS: CALCIUM LEVEL 8.6 MG/DL (8.8-10.2); CREATININE FOR GFR 1.8 MG/DL (0.70-1.30); GLOMERULAR FILTRATION RATE 39.6 (>42); POTASSIUM SERUM 4.3 MEQ/L (3.5-5.1)
[2018-06-07 07:48] VITALS: BP 156/59
[2018-06-07] MEDS: HumaLOG INSULIN (NovoLOG) PER UNIT SC SCH ×4 (08:02→20:49)
[2018-06-07] MEDS: LANSOPRAZOLE SUSPENSION 30 MG/10 ML ORAL SYRINGE (FIRST-LANSOPRAZOLE) PO SCH (08:03)
[2018-06-07] MEDS: FERROUS SULFATE 300MG/5ML UDC LIQUID PO SCH (08:03)
[2018-06-07] MEDS: LIDOCAINE 5% OINT 30 GM TOP SCH (08:03)
[2018-06-07] MEDS: NYSTATIN 100,000 UNITS/GM TOPICAL PWD 15 GM TOP SCH ×2 (08:03→20:50)
[2018-06-07] MEDS: EUCERIN 120GM CREAM TOP SCH ×2 (08:03→20:49)
[2018-06-07] MEDS: MULTIVITAMIN/MINERALS LIQUID 15ML ORAL SYRINGE PO SCH (08:03)
[2018-06-07] MEDS: ISOSORBIDE DIN. (ISORDIL) 30 MG TAB PO SCH ×3 (08:04→20:48)
[2018-06-07] MEDS: CALCITRIOL 0.25 MCG CAP (S0169) PO SCH (08:04)
[2018-06-07] MEDS: traMADol 50 MG TAB PO SCH ×4 (08:04→20:48)
[2018-06-07] MEDS: ASPIRIN 81 MG CHEW TABLET PO SCH (08:05)
[2018-06-07] MEDS: FUROSEMIDE 40 MG TAB PO SCH ×2 (08:05→17:03)
[2018-06-07] MEDS: CARVedilol 12.5 MG TAB PO SCH ×2 (08:05→20:49)
[2018-06-07] MEDS: FEBUXOSTAT 40 MG TABLET (ULORIC) PO SCH (08:05)
[2018-06-07] MEDS: SPIRONOLACTONE 25 MG TAB PO SCH ×2 (08:05→20:49)
[2018-06-07] MEDS: MIRALAX *UNIT DOSE* 17GM PACKET PO SCH ×2 (08:06→20:49)
[2018-06-07] MEDS: POTASSIUM CHLORIDE 10% LIQ 20 MEQ/15 ML UDC PO SCH ×2 (08:06→20:49)
[2018-06-07] MEDS: **NOTE PATIENT COMMENT** MISC XX SCH (08:06)
[2018-06-07] MEDS: SENOKOT S TAB PO SCH ×2 (08:06→20:48)
[2018-06-07 11:35] VITALS: BP 155/68
--- NOTE | 2018-06-07 11:59 | IPNPDOC ---
Text Note Date of Service The patient was seen on 06/07/18. NOTE Subjective: Denies CP/SOB/palpitations. Pt had nausea and 1 episode of nonbili ous nonbloody vomiting/morning while taking pills. Tolerated his dinner last night. No abdominal pain. Objective: Vitals: (see below) General: No acute distress, laying comfortably in bed. HEENT: Moist mucous membranes. Neck: No JVD or lymphadenopathy Cardiac: RRR, No murmurs Pulm: Diminished sounds and crackles at the bases b/l. No wheezing, rhonchi Abd: NT/ND + BS Ext: Trace edema bilateral lower extremities. No cyanosis. Moving all ext. Following commands. Labs (see below) Assessment/Plan 1. s/p Acute on chronic renal insufficiency. Baseline CKD stage III. Likely secondary to gentamicin, entresto, bacteremia. Improving. Appreciate Nephro input. 2. s/p Acute on chronic systolic and diastolic heart failure- Torsemide. Entresto on hold. Cont Statin, ASA. Cardiology consulted. s/p dobutamine. 3. s/p Enterococcus faecalis bacteremia- ? Source of colitis versus chronic cholecystitis. Appreciate Dr. Vang. On Rocephin and and ampicillin per Dr Palumbo. LAUREANO negative for vegetation. Bone scan negative. 4. Chronic back pain- CT lumbar spine appreciated. Patient states symptoms are improving. CT Thoracic/lumbar spine. Ortho consulted. Pain management consulted. Pain well controlled. 5. Chronic anemia likely secondary to anemia of chronic kidney disease- s/p 1 unit PRBC.Stable. No need for transfusion at this time. 6. Chronic AF - on eliquis. Cont bb. 7. DM - cont levemir SSI. 8. Diarrhea - resolved. 9. CAD - cont asa/bb/statin. Entresto held given renal function. DVT prophy: On eliquis Overall prognosis guarded Pending Hospice eval. Discussed with the would like to hold off on entertaining comfort measures only until they discuss with hospice on Tuesday. VS,Fishbone, I+O VS, Fishbone, I+O Laboratory Tests 06/07/18 06:41 Red Blood Count 3.85 L, Mean Corpuscular Volume 84.7, Mean Corpuscular Hemoglobin 26.0 L, Mean Corpuscular Hemoglobin Concent 30.7 L, Red Cell Distribution Width 16.9 H, Calcium Level 8.6 L Vital Signs Date Time Temp Pulse Resp B/P (MAP) Pulse Ox O2 Delivery O2 Flow Rate FiO2 06/07/18 11:35 98.0 94 18 155/68 (97) 97 Nasal Cannula 1.0 I&O- Last 24 Hours up to 6 AM 06/07/18 06:00 Intake Total 700 ml Output Total 550 ml Balance 150 ml BISHOP LEVY MD Jun 07, 2018 11:59
[2018-06-07 16:00] VITALS: BP 142/74
[2018-06-07 20:00] VITALS: BP_SYST 128; BP_SYST 129; BP_DIAS 74; BP_DIAS 78
[2018-06-07] MEDS: LIDOCAINE 5% (LIDODERM) PATCH TD SCH (20:49)
[2018-06-07] MEDS: ATORVASTATIN 20 MG TAB PO SCH (20:49)
[2018-06-08] VITALS: BP 140/67
[2018-06-08 04:00] VITALS: BP 138/65
[2018-06-08] MEDS: **hydrALAZINE** 10 MG TAB PO SCH ×4 (04:41→21:38)
[2018-06-08] MEDS: SODIUM CHLORIDE 0.9% INJ 10 ML SYR IV SCH ×2 (06:00→18:44)
[2018-06-08 07:28] LABS: HEMOGLOBIN 9.4 g/dl (13.5-17.5); MEAN CORPUSCULAR HEMOGLOBIN 25.9 pg (27.0-33.0); MEAN CORPUSCULAR HGB CONC 30.3 g/dl (32.0-36.5); MEAN CORPUSCULAR VOLUME 85.4 fl (80.0-96.0); PLATELET COUNT, AUTOMATED 124 10^3/uL (150-450); RED BLOOD COUNT 3.63 10^6/uL (4.30-6.10); WHITE BLOOD COUNT 4.9 10^3/uL (4.0-10.0)
[2018-06-08 07:40] LABS: CALCIUM LEVEL 8.7 MG/DL (8.8-10.2); CREATININE FOR GFR 1.79 MG/DL (0.70-1.30); GLOMERULAR FILTRATION RATE 39.8 (>42)
[2018-06-08 08:26] VITALS: BP 153/73
[2018-06-08] MEDS: FERROUS SULFATE 300MG/5ML UDC LIQUID PO SCH ×2 (09:00→09:41)
[2018-06-08] MEDS: **NOTE PATIENT COMMENT** MISC XX SCH (09:00)
[2018-06-08] MEDS: MIRALAX *UNIT DOSE* 17GM PACKET PO SCH ×2 (09:00→21:00)
[2018-06-08] MEDS: MULTIVITAMIN/MINERALS LIQUID 15ML ORAL SYRINGE PO SCH ×2 (09:00→09:43)
[2018-06-08] MEDS: SENOKOT S TAB PO SCH ×2 (09:00→21:00)
[2018-06-08] MEDS: FEBUXOSTAT 40 MG TABLET (ULORIC) PO SCH (09:40)
[2018-06-08] MEDS: ASPIRIN 81 MG CHEW TABLET PO SCH (09:40)
[2018-06-08] MEDS: FUROSEMIDE 40 MG TAB PO SCH ×2 (09:40→18:48)
[2018-06-08] MEDS: ISOSORBIDE DIN. (ISORDIL) 30 MG TAB PO SCH ×3 (09:40→21:00)
[2018-06-08] MEDS: CARVedilol 12.5 MG TAB PO SCH ×2 (09:40→21:00)
[2018-06-08] MEDS: POTASSIUM CHLORIDE 10% LIQ 20 MEQ/15 ML UDC PO SCH ×2 (09:41→21:00)
[2018-06-08] MEDS: LANSOPRAZOLE SUSPENSION 30 MG/10 ML ORAL SYRINGE (FIRST-LANSOPRAZOLE) PO SCH (09:42)
[2018-06-08] MEDS: traMADol 50 MG TAB PO SCH ×4 (09:42→21:00)
[2018-06-08] MEDS: SPIRONOLACTONE 25 MG TAB PO SCH ×2 (09:42→21:00)
[2018-06-08] MEDS: EUCERIN 120GM CREAM TOP SCH ×2 (09:43→22:10)
[2018-06-08] MEDS: LIDOCAINE 5% OINT 30 GM TOP SCH (09:43)
[2018-06-08] MEDS: HumaLOG INSULIN (NovoLOG) PER UNIT SC SCH ×4 (09:43→21:00)
[2018-06-08] MEDS: NYSTATIN 100,000 UNITS/GM TOPICAL PWD 15 GM TOP SCH ×2 (09:44→22:10)
--- NOTE | 2018-06-08 13:42 | IPNPDOC ---
Text Note Date of Service The patient was seen on 06/08/18. NOTE Subjective: Patient denies any complaints. Feels well. Awaiting to discuss with hospice and . Objective: Vitals: (see below) General: No acute distress, laying comfortably in bed. HEENT: Moist mucous membranes. Neck: No JVD or lymphadenopathy Cardiac: RRR, No murmurs Pulm: Diminished sounds and crackles at the bases b/l. No wheezing, rhonchi Abd: NT/ND + BS Ext: Trace edema bilateral lower extremities. No cyanosis. Moving all ext. Following commands. Labs (see below) Assessment/Plan 1. s/p Acute on chronic renal insufficiency. Baseline CKD stage III. Likely s econdary to gentamicin, entresto, bacteremia. Improving. Appreciate Nephro input. 2. s/p Acute on chronic systolic and diastolic heart failure- Torsemide. Entresto on hold. Cont Statin, ASA. Cardiology consulted. s/p dobutamine. 3. s/p Enterococcus faecalis bacteremia- ? Source of colitis versus chronic cholecystitis. Appreciate Dr. Vang. On Rocephin and and ampicillin per Dr Palumbo. LAUREANO negative for vegetation. Bone scan negative. 4. Chronic back pain- CT lumbar spine appreciated. Patient states symptoms are improving. CT Thoracic/lumbar spine. Ortho consulted. Pain management consulted. Pain well controlled. 5. Chronic anemia likely secondary to anemia of chronic kidney disease- s/p 1 unit PRBC.Stable. No need for transfusion at this time. 6. Chronic AF - on eliquis. Cont bb. 7. DM - cont levemir SSI. 8. Diarrhea - resolved. 9. CAD - cont asa/bb/statin. Entresto held given renal function. DVT prophy: On eliquis Overall prognosis guarded Pending Hospice eval. Discussed with the would like to hold off on entertaining comfort measures only until they discuss with hospice on Tuesday. VS,Fishbone, I+O VS, Fishbone, I+O Laboratory Tests 06/08/18 06:59 Red Blood Count 3.63 L, Mean Corpuscular Volume 85.4, Mean Corpuscular Hem oglobin 25.9 L, Mean Corpuscular Hemoglobin Concent 30.3 L, Red Cell Distribution Width 16.5 H, Calcium Level 8.7 L Vital Signs Date Time Temp Pulse Resp B/P (MAP) Pulse Ox O2 Delivery O2 Flow Rate FiO2 06/08/18 09:42 18 06/08/18 09:40 153/73 06/08/18 09:40 73 06/08/18 08:26 97.4 100 Nasal Cannula 1.0 I&O- Last 24 Hours up to 6 AM 06/08/18 05:59 Intake Total 640 ml Output Total 800 ml Balance -160 ml BISHOP LEVY MD Jun 08, 2018 13:42
[2018-06-08 14:00] VITALS: BP 147/68
[2018-06-08] MEDS: LIDOCAINE 5% (LIDODERM) PATCH TD SCH (21:00)
[2018-06-08] MEDS: ATORVASTATIN 20 MG TAB PO SCH (21:00)
[2018-06-08 22:00] VITALS: BP 155/80
[2018-06-09] MEDS: ONDANSETRON 4MG/2ML VIAL (J2405) IV PRN (05:56)
[2018-06-09] MEDS: **hydrALAZINE** 10 MG TAB PO SCH ×3 (05:57→23:09)
[2018-06-09] MEDS: SODIUM CHLORIDE 0.9% INJ 10 ML SYR IV SCH ×2 (05:58→16:34)
[2018-06-09 06:00] VITALS: BP 146/84
[2018-06-09 06:16] LABS: MEAN CORPUSCULAR HEMOGLOBIN 25.7 pg (27.0-33.0); MEAN CORPUSCULAR HGB CONC 30.3 g/dl (32.0-36.5); MEAN CORPUSCULAR VOLUME 84.8 fl (80.0-96.0); PLATELET COUNT, AUTOMATED 135 10^3/uL (150-450); RED BLOOD COUNT 3.89 10^6/uL (4.30-6.10); WHITE BLOOD COUNT 5.3 10^3/uL (4.0-10.0)
[2018-06-09 06:37] LABS: CREATININE FOR GFR 1.63 MG/DL (0.70-1.30); GLOMERULAR FILTRATION RATE 44.4 (>42); POTASSIUM SERUM 3.9 MEQ/L (3.5-5.1)
[2018-06-09] MEDS: HumaLOG INSULIN (NovoLOG) PER UNIT SC SCH ×4 (08:19→20:54)
[2018-06-09] MEDS: MIRALAX *UNIT DOSE* 17GM PACKET PO SCH ×2 (08:23→21:06)
[2018-06-09] MEDS: FEBUXOSTAT 40 MG TABLET (ULORIC) PO SCH (08:23)
[2018-06-09] MEDS: LANSOPRAZOLE SUSPENSION 30 MG/10 ML ORAL SYRINGE (FIRST-LANSOPRAZOLE) PO SCH (08:24)
[2018-06-09] MEDS: ISOSORBIDE DIN. (ISORDIL) 30 MG TAB PO SCH ×3 (08:26→21:03)
[2018-06-09] MEDS: SENOKOT S TAB PO SCH ×2 (08:26→21:09)
[2018-06-09] MEDS: CARVedilol 12.5 MG TAB PO SCH ×2 (08:26→21:06)
[2018-06-09] MEDS: FUROSEMIDE 40 MG TAB PO SCH ×2 (08:27→16:33)
[2018-06-09] MEDS: ASPIRIN 81 MG CHEW TABLET PO SCH (08:27)
[2018-06-09] MEDS: CALCITRIOL 0.25 MCG CAP (S0169) PO SCH (08:28)
[2018-06-09] MEDS: SPIRONOLACTONE 25 MG TAB PO SCH ×2 (08:28→21:03)
[2018-06-09] MEDS: EUCERIN 120GM CREAM TOP SCH ×2 (08:28→21:05)
[2018-06-09] MEDS: traMADol 50 MG TAB PO SCH ×4 (08:28→21:04)
[2018-06-09] MEDS: LIDOCAINE 5% OINT 30 GM TOP SCH (08:29)
[2018-06-09] MEDS: NYSTATIN 100,000 UNITS/GM TOPICAL PWD 15 GM TOP SCH ×2 (08:29→21:05)
[2018-06-09] MEDS: MULTIVITAMIN/MINERALS LIQUID 15ML ORAL SYRINGE PO SCH (08:50)
[2018-06-09] MEDS: POTASSIUM CHLORIDE 10% LIQ 20 MEQ/15 ML UDC PO SCH ×2 (08:51→21:06)
[2018-06-09] MEDS: FERROUS SULFATE 300MG/5ML UDC LIQUID PO SCH (08:51)
[2018-06-09] MEDS: **NOTE PATIENT COMMENT** MISC XX SCH (08:52)
--- NOTE | 2018-06-09 13:34 | IPNPDOC ---
Text Note Date of Service The patient was seen on 06/09/18. NOTE Subjective: Patient denies any complaints. Awaiting to discuss with hospice today. Objective: Vitals: (see below) General: No acute distress, laying comfortably in bed. HEENT: Moist mucous membranes. Neck: No JVD or lymphadenopathy Cardiac: RRR, No murmurs Pulm: Diminished sounds and crackles at the bases b/l. No wheezing, rhonchi Abd: NT/ND + BS Ext: Trace edema bilateral lower extremities. No cyanosis. Moving all ext. Following commands. Labs (see below) Assessment/Plan 1. s/p Acute on chronic renal insufficiency. Baseline CKD stage III. Likely secondary to gentamicin, entresto, bacteremia. Improving. Appreciate Nephro input. 2. s/p Acute on chronic systolic and diastolic heart failure- Torsemide. Entresto on hold. Cont Statin, ASA. Cardiology consulted. s/p dobutamine. 3. s/p Enterococcus faecalis bacteremia- ? Source of colitis versus chronic cholecystitis. Appreciate Dr. Vang. On Rocephin and and ampicillin per Dr Palumbo. LAUREANO negative for vegetation. Bone scan negative. 4. Chronic back pain- CT lumbar spine appreciated. Patient states symptoms are improving. CT Thoracic/lumbar spine. Ortho consulted. Pain management consulted. Pain well controlled. 5. Chronic anemia likely secondary to anemia of chronic kidney disease- s/p 1 unit PRBC.Stable. No need for transfusion at this time. 6. Chronic AF - on eliquis. Cont bb. 7. DM - cont levemir SSI. 8. Diarrhea - resolved. 9. CAD - cont asa/bb/statin. Entresto held given renal function. DVT prophy: On eliquis Overall prognosis guarded Pending Hospice eval. VS,Fishbone, I+O VS, Fishbone, I+O Laboratory Tests 06/09/18 05:29 Red Blood Count 3.89 L, Mean Corpuscular Volume 84.8, Mean Corpuscular Hemoglobin 25.7 L, Mean Corpuscular Hemoglobin Concent 30.3 L, Red Cell Distribution Width 16.6 H, Calcium Level 9.0 Vital Signs Date Time Temp Pulse Resp B/P (MAP) Pulse Ox O2 Delivery O2 Flow Rate FiO2 06/09/18 08:28 18 1/11/19 08:26 177/82 06/09/18 08:26 79 06/09/18 06:00 97.6 92 Nasal Cannula 1.0 I&O- Last 24 Hours up to 6 AM 06/09/18 06:00 Intake Total 390 ml Output Total 1050 ml Balance -660 ml BISHOP LEVY MD Jun 09, 2018 13:34
[2018-06-09 14:00] VITALS: BP 127/70
[2018-06-09] MEDS: ATORVASTATIN 20 MG TAB PO SCH (21:02)
[2018-06-09] MEDS: LIDOCAINE 5% (LIDODERM) PATCH TD SCH (21:04)
[2018-06-09 22:00] VITALS: BP 133/82
[2018-06-10] MEDS: **hydrALAZINE** 10 MG TAB PO SCH ×3 (05:19→21:06)
[2018-06-10] MEDS: SODIUM CHLORIDE 0.9% INJ 10 ML SYR IV SCH ×2 (05:20→18:06)
[2018-06-10] MEDS: SODIUM CHLORIDE 0.9% INJ 10 ML SYR IV PRN (05:20)
[2018-06-10 05:41] LABS: HEMATOCRIT 29.9 % (42.0-52.0); HEMOGLOBIN 9.3 g/dl (13.5-17.5); MEAN CORPUSCULAR HEMOGLOBIN 26.1 pg (27.0-33.0); MEAN CORPUSCULAR HGB CONC 31.1 g/dl (32.0-36.5); MEAN CORPUSCULAR VOLUME 83.8 fl (80.0-96.0); PLATELET COUNT, AUTOMATED 114 10^3/uL (150-450); RED BLOOD COUNT 3.57 10^6/uL (4.30-6.10); WHITE BLOOD COUNT 4.7 10^3/uL (4.0-10.0)
[2018-06-10 06:00] VITALS: BP 142/71
[2018-06-10 06:14] LABS: CALCIUM LEVEL 8.3 MG/DL (8.8-10.2); CREATININE FOR GFR 1.72 MG/DL (0.70-1.30); GLOMERULAR FILTRATION RATE 41.7 (>42); POTASSIUM SERUM 3.9 MEQ/L (3.5-5.1)
[2018-06-10] MEDS: POTASSIUM CHLORIDE 10% LIQ 20 MEQ/15 ML UDC PO SCH ×3 (08:58→20:58)
[2018-06-10] MEDS: MIRALAX *UNIT DOSE* 17GM PACKET PO SCH ×3 (08:58→20:58)
[2018-06-10] MEDS: SENOKOT S TAB PO SCH ×2 (08:59→20:58)
[2018-06-10] MEDS: traMADol 50 MG TAB PO SCH ×4 (08:59→21:12)
[2018-06-10] MEDS: FUROSEMIDE 40 MG TAB PO SCH ×2 (08:59→18:05)
[2018-06-10] MEDS: LANSOPRAZOLE SUSPENSION 30 MG/10 ML ORAL SYRINGE (FIRST-LANSOPRAZOLE) PO SCH (09:00)
[2018-06-10] MEDS: **NOTE PATIENT COMMENT** MISC XX SCH (09:00)
[2018-06-10] MEDS: FERROUS SULFATE 300MG/5ML UDC LIQUID PO SCH (09:00)
[2018-06-10] MEDS: MULTIVITAMIN/MINERALS LIQUID 15ML ORAL SYRINGE PO SCH (09:00)
[2018-06-10] MEDS: CARVedilol 12.5 MG TAB PO SCH ×2 (09:02→21:11)
[2018-06-10] MEDS: ASPIRIN 81 MG CHEW TABLET PO SCH (09:02)
[2018-06-10] MEDS: SPIRONOLACTONE 25 MG TAB PO SCH ×2 (09:02→21:11)
[2018-06-10] MEDS: FEBUXOSTAT 40 MG TABLET (ULORIC) PO SCH (09:02)
[2018-06-10] MEDS: ISOSORBIDE DIN. (ISORDIL) 30 MG TAB PO SCH ×3 (09:02→21:11)
[2018-06-10] MEDS: HumaLOG INSULIN (NovoLOG) PER UNIT SC SCH ×4 (09:03→21:00)
[2018-06-10] MEDS: EUCERIN 120GM CREAM TOP SCH ×2 (09:03→20:59)
[2018-06-10] MEDS: LIDOCAINE 5% OINT 30 GM TOP SCH (09:04)
[2018-06-10] MEDS: NYSTATIN 100,000 UNITS/GM TOPICAL PWD 15 GM TOP SCH ×2 (09:04→20:58)
--- NOTE | 2018-06-10 11:48 | IPNPDOC ---
Text Note Date of Service The patient was seen on 06/10/18. NOTE Subjective: Patient denies any complaints. Objective: Vitals: (see below) General: No acute distress, laying comfortably in bed. HEENT: Moist mucous membranes. Neck: No JVD or lymphadenopathy Cardiac: RRR, No murmurs Pulm: Diminished sounds and crackles at the bases b/l. No wheezing, rhonchi Abd: NT/ND + BS Ext: Trace edema bilateral lower extremities. No cyanosis. Moving all ext. Following commands. Labs (see below) Assessment/Plan 1. s/p Acute on chronic renal insufficiency. Baseline CKD stage III. Likely secondary to gentamicin, entresto, bacteremia. Improving. Appreciate Nephro input. 2. s/p Acute on chronic systolic and diastolic heart failure- Torsemide. Entresto on hold. Cont Statin, ASA. Cardiology consulted. s/p dobutamine. 3. s/p Enterococcus faecalis bacteremia- ? Source of colitis versus chronic cholecystitis. Appreciate Dr. Vang. On Rocephin and and ampicillin per Dr Palumbo. LAUREANO negative for vegetation. Bone scan negative. 4. Chronic back pain- CT lumbar spine appreciated. Patient states symptoms are improving. CT Thoracic/lumbar spine. Ortho consulted. Pain management consulted. Pain well controlled. 5. Chronic anemia likely secondary to anemia of chronic kidney disease- s/p 1 unit PRBC.Stable. No need for transfusion at this time. 6. Chronic AF - on eliquis. Cont bb. 7. DM - cont levemir SSI. 8. Diarrhea - resolved. 9. CAD - cont asa/bb/statin. Entresto held given renal function. DVT prophy: On eliquis Overall prognosis guarded Hospice eval on 06/09. debating home hospice vs hospice house depending on finances. 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 VS,Fishbone, I+O VS, Fishbone, I+O Laboratory Tests 06/10/18 05:32 Red Blood Count 3.57 L, Mean Corpuscular Volume 83.8, Mean Corpuscular Hemoglobin 26.1 L, Mean Corpuscular Hemoglobin Concent 31.1 L, Red Cell Distribution Width 16.5 H, Calcium Level 8.3 L Vital Signs Date Time Temp Pulse Resp B/P (MAP) Pulse Ox O2 Delivery O2 Flow Rate FiO2 06/10/18 09:02 142/71 06/10/18 09:02 88 06/10/18 08:59 18 06/10/18 06:00 98.2 93 Nasal Cannula 1.0 l I&O- Last 24 Hours up to 6 AM 06/10/18 06:00 Intake Total 770 ml Output Total 1100 ml Balance -330 ml BISHOP LEVY MD Jun 10, 2018 11:48
[2018-06-10 14:00] VITALS: BP 146/81
[2018-06-10] MEDS: LIDOCAINE 5% (LIDODERM) PATCH TD SCH (20:57)
[2018-06-10] MEDS: ATORVASTATIN 20 MG TAB PO SCH (21:10)
[2018-06-10 22:00] VITALS: BP 134/86
[2018-06-11] MEDS: **hydrALAZINE** 10 MG TAB PO SCH ×3 (05:54→21:07)
[2018-06-11] MEDS: SODIUM CHLORIDE 0.9% INJ 10 ML SYR IV SCH ×2 (05:54→16:19)
[2018-06-11] MEDS: SODIUM CHLORIDE 0.9% INJ 10 ML SYR IV PRN (05:55)
[2018-06-11 06:00] VITALS: BP 136/76
[2018-06-11] MEDS: HumaLOG INSULIN (NovoLOG) PER UNIT SC SCH ×4 (07:30→21:00)
[2018-06-11] MEDS: ASPIRIN 81 MG CHEW TABLET PO SCH (08:40)
[2018-06-11] MEDS: SENOKOT S TAB PO SCH ×2 (08:41→20:26)
[2018-06-11] MEDS: FEBUXOSTAT 40 MG TABLET (ULORIC) PO SCH (08:41)
[2018-06-11] MEDS: traMADol 50 MG TAB PO SCH ×4 (08:42→20:56)
[2018-06-11] MEDS: ISOSORBIDE DIN. (ISORDIL) 30 MG TAB PO SCH ×3 (08:43→21:00)
[2018-06-11] MEDS: FUROSEMIDE 40 MG TAB PO SCH ×2 (08:43→16:18)
[2018-06-11] MEDS: SPIRONOLACTONE 25 MG TAB PO SCH ×2 (08:43→20:55)
[2018-06-11] MEDS: CARVedilol 12.5 MG TAB PO SCH ×2 (08:43→21:00)
[2018-06-11] MEDS: LANSOPRAZOLE SUSPENSION 30 MG/10 ML ORAL SYRINGE (FIRST-LANSOPRAZOLE) PO SCH (08:44)
[2018-06-11] MEDS: MIRALAX *UNIT DOSE* 17GM PACKET PO SCH ×2 (08:44→20:27)
[2018-06-11] MEDS: MULTIVITAMIN/MINERALS LIQUID 15ML ORAL SYRINGE PO SCH (08:44)
[2018-06-11] MEDS: FERROUS SULFATE 300MG/5ML UDC LIQUID PO SCH (08:44)
[2018-06-11] MEDS: POTASSIUM CHLORIDE 10% LIQ 20 MEQ/15 ML UDC PO SCH ×2 (08:44→20:27)
[2018-06-11] MEDS: EUCERIN 120GM CREAM TOP SCH ×2 (08:45→20:26)
[2018-06-11] MEDS: NYSTATIN 100,000 UNITS/GM TOPICAL PWD 15 GM TOP SCH ×2 (08:45→21:05)
[2018-06-11] MEDS: LIDOCAINE 5% OINT 30 GM TOP SCH (08:45)
[2018-06-11] MEDS: **NOTE PATIENT COMMENT** MISC XX SCH (09:00)
[2018-06-11 09:38] LABS: HEMATOCRIT 31.7 % (42.0-52.0); HEMOGLOBIN 9.7 g/dl (13.5-17.5); MEAN CORPUSCULAR HEMOGLOBIN 26.1 pg (27.0-33.0); MEAN CORPUSCULAR HGB CONC 30.6 g/dl (32.0-36.5); MEAN CORPUSCULAR VOLUME 85.2 fl (80.0-96.0); PLATELET COUNT, AUTOMATED 137 10^3/uL (150-450); RED BLOOD COUNT 3.72 10^6/uL (4.30-6.10); WHITE BLOOD COUNT 4.9 10^3/uL (4.0-10.0)
[2018-06-11 09:41] LABS: CALCIUM LEVEL 8.9 MG/DL (8.8-10.2); CREATININE FOR GFR 1.63 MG/DL (0.70-1.30); GLOMERULAR FILTRATION RATE 44.4 (>42)
--- NOTE | 2018-06-11 10:20 | IPNPDOC ---
Text Note Date of Service The patient was seen on 06/11/18. NOTE Subjective: Pt with mild productive cough this am. No CP/palpitations. Objective: Vitals: (see below) General: No acute distress, laying comfortably in bed. HEENT: Moist mucous membranes. Neck: No JVD or lymphadenopathy Cardiac: RRR, No murmurs Pulm: Diminished sounds and crackles at the bases b/l. No wheezing, rhonchi Abd: NT/ND + BS Ext: Trace edema bilateral lower extremities. No cyanosis. Moving all ext. Following commands. Labs (see below) Assessment/Plan 1. s/p Acute on chronic renal insufficiency. Baseline CKD stage III. Likely secondary to gentamicin, entresto, bacteremia. Improving. Appreciate Nephro input. 2. s/p Acute on chronic systolic and diastolic heart failure- Torsemide. Entresto on hold. Cont Statin, ASA. Cardiology consulted. s/p dobutamine. 3. s/p Enterococcus faecalis bacteremia- ? Source of colitis versus chronic cholecystitis. Appreciate Dr. Vang. On Rocephin and and ampicillin per Dr Palumbo. LAUREANO negative for vegetation. Bone scan negative. 4. Chronic back pain- CT lumbar spine appreciated. Patient states symptoms are improving. CT Thoracic/lumbar spine. Ortho consulted. Pain management consulted. Pain well controlled. 5. Chronic anemia likely secondary to anemia of chronic kidney disease- s/p 1 unit PRBC.Stable. No need for transfusion at this time. 6. Chronic AF - Eliquis has been on hold 2/2 anemia/ ?GI bleed.. Cont bb. 7. DM - cont levemir SSI. 8. Diarrhea - resolved. 9. CAD - cont asa/bb/statin. Entresto held given renal function. 10. Congestion - mucinex. cxr. no leukocytosis, no fevers. DVT prophy: SCDs Overall prognosis guarded Hospice eval on 06/09. debating home hospice vs hospice house depending on finances. 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 VS,Fishbone, I+O VS, Fishbone, I+O Laboratory Tests 06/11/18 09:12 Red Blood Count 3.72 L, Mean Corpuscular Volume 85.2, Mean Corpuscular Hemoglobin 26.1 L, Mean Corpuscular Hemoglobin Concent 30.6 L, Red Cell Distribution Width 16.5 H, Calcium Level 8.9 Vital Signs Date Time Temp Pulse Resp B/P (MAP) Pulse Ox O2 Delivery O2 Flow Rate FiO2 06/11/18 08:43 85 128/72 06/11/18 08:42 18 Room Air 06/11/18 06:00 98.0 97 1.0 I&O- Last 24 Hours up to 6 AM 06/11/18 05:59 Intake Total 530 ml Output Total 950 ml Balance -420 ml BISHOP LEVY MD Jun 11, 2018 10:20
--- NOTE | 2018-06-11 11:19 | REP ---
Portable chest x-ray: Sitting AP view. History: Congestion. Comparison study: May 29, 2018. Findings: A right-sided PICC line is seen terminating in the expected location of the superior vena cava. A bipolar pacemaker is seen in the right heart via the left side. Moderate cardiomegaly is observed as before. There is pleural opacity in the bases suggesting bilateral effusions, right larger than left. No definite infiltrate. Pulmonary vasculature is cephalized. Impression: CHF pattern. Bilateral effusions, right greater than left. No acute infiltrate seen. Electronically Signed by Rosalio Mcbride MD 06/11/2018 12:44 P
[2018-06-11] MEDS: guaiFENesin ER 600 MG TAB PO SCH ×2 (12:27→21:00)
[2018-06-11 14:00] VITALS: BP 147/90
[2018-06-11] MEDS: LIDOCAINE 5% (LIDODERM) PATCH TD SCH (20:26)
[2018-06-11] MEDS: ATORVASTATIN 20 MG TAB PO SCH (21:00)
[2018-06-11 22:00] VITALS: BP 142/85
[2018-06-12] MEDS: SODIUM CHLORIDE 0.9% INJ 10 ML SYR IV SCH ×2 (05:03→18:00)
[2018-06-12] MEDS: SODIUM CHLORIDE 0.9% INJ 10 ML SYR IV PRN ×2 (05:04→12:36)
[2018-06-12] MEDS: **hydrALAZINE** 10 MG TAB PO SCH ×3 (05:31→21:57)
[2018-06-12 06:00] VITALS: BP 141/78
[2018-06-12] MEDS: HumaLOG INSULIN (NovoLOG) PER UNIT SC SCH ×5 (07:30→21:00)
[2018-06-12] MEDS: ISOSORBIDE DIN. (ISORDIL) 30 MG TAB PO SCH ×3 (08:00→21:57)
[2018-06-12] MEDS: CALCITRIOL 0.25 MCG CAP (S0169) PO SCH (08:00)
[2018-06-12] MEDS: FUROSEMIDE 40 MG TAB PO SCH ×2 (08:01→16:03)
[2018-06-12] MEDS: SPIRONOLACTONE 25 MG TAB PO SCH ×2 (08:01→21:57)
[2018-06-12] MEDS: CARVedilol 12.5 MG TAB PO SCH ×2 (08:01→21:58)
[2018-06-12] MEDS: ASPIRIN 81 MG CHEW TABLET PO SCH (08:01)
[2018-06-12] MEDS: FEBUXOSTAT 40 MG TABLET (ULORIC) PO SCH (08:01)
[2018-06-12] MEDS: EUCERIN 120GM CREAM TOP SCH ×2 (08:02→21:59)
[2018-06-12] MEDS: traMADol 50 MG TAB PO SCH ×4 (08:02→21:56)
[2018-06-12] MEDS: NYSTATIN 100,000 UNITS/GM TOPICAL PWD 15 GM TOP SCH ×2 (08:02→22:00)
[2018-06-12] MEDS: LIDOCAINE 5% OINT 30 GM TOP SCH (08:03)
[2018-06-12] MEDS: LANSOPRAZOLE SUSPENSION 30 MG/10 ML ORAL SYRINGE (FIRST-LANSOPRAZOLE) PO SCH (08:05)
[2018-06-12] MEDS: FERROUS SULFATE 300MG/5ML UDC LIQUID PO SCH (08:05)
[2018-06-12] MEDS: guaiFENesin ER 600 MG TAB PO SCH ×2 (08:05→21:57)
[2018-06-12] MEDS: MULTIVITAMIN/MINERALS LIQUID 15ML ORAL SYRINGE PO SCH (08:05)
[2018-06-12] MEDS: POTASSIUM CHLORIDE 10% LIQ 20 MEQ/15 ML UDC PO SCH ×2 (08:05→21:54)
[2018-06-12] MEDS: MIRALAX *UNIT DOSE* 17GM PACKET PO SCH ×2 (08:05→21:58)
[2018-06-12] MEDS: SENOKOT S TAB PO SCH ×2 (08:06→21:54)
[2018-06-12] MEDS: **NOTE PATIENT COMMENT** MISC XX SCH (08:06)
[2018-06-12 08:30] VITALS: BP 127/90
--- NOTE | 2018-06-12 10:34 | IPNPDOC ---
Text Note Date of Service The patient was seen on 06/12/18. NOTE Subjective: Nauseous this am. No cough. No Vomiting or abdominal pain. No CP/palpitations. Objective: Vitals: (see below) General: No acute distress, laying comfortably in bed. HEENT: Moist mucous membranes. Neck: No JVD or lymphadenopathy Cardiac: RRR, No murmurs Pulm: Diminished sounds and crackles at the bases b/l. No wheezing, rhonchi Abd: NT/ND + BS Ext: Trace edema bilateral lower extremities. No cyanosis. Moving all ext. Following commands. Labs (see below) Assessment/Plan 1. s/p Acute on chronic renal insufficiency. Baseline CKD stage III. Likely secondary to gentamicin, entresto, bacteremia. Improving. Appreciate Nephro input. 2. s/p Acute on chronic systolic and diastolic heart failure- Torsemide. Entresto on hold. Cont Statin, ASA. Cardiology consulted. s/p dobutamine. 3. s/p Enterococcus faecalis bacteremia- ? Source of colitis versus chronic cholecystitis. Appreciate Dr. Vang. On Rocephin and and ampicillin per Dr Palumbo. LAUREANO negative for vegetation. Bone scan negative. 4. Chronic back pain- CT lumbar spine appreciated. Patient states symptoms are improving. CT Thoracic/lumbar spine. Ortho consulted. Pain management consulted. Pain well controlled. 5. Chronic anemia likely secondary to anemia of chronic kidney disease- s/p 1 unit PRBC.Stable. No need for transfusion at this time. 6. Chronic AF - eliquis has been on hold 2/2 anemia/?GI Bleed. Cont bb. 7. DM - cont levemir SSI. 8. Diarrhea - resolved. 9. CAD - cont asa/bb/statin. Entresto held given renal function. 10. Congestion - mucinex. cxr. no leukocytosis, no fevers. DVT prophy:c Overall prognosis guarded Hospice eval on 06/09. debating home hospice vs hospice house depending on finances. 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 Now thinking about taking patient home, however PT/CM working on services needed, if possible. VS,Fishbone, I+O VS, Fishbone, I+O Vital Signs Date Time Temp Pulse Resp B/P (MAP) Pulse Ox O2 Delivery O2 Flow Rate FiO2 06/12/18 09:00 1.0 06/12/18 08:30 96.7 88 18 127/90 (102) 95 Nasal Cannula I&O- Last 24 Hours up to 6 AM 06/12/18 05:59 Intake Total 1160 ml Output Total 1300 ml Balance -140 ml BISHOP LEVY MD Jun 12, 2018 10:34
[2018-06-12] MEDS: ONDANSETRON 4MG/2ML VIAL (J2405) IV PRN (12:35)
[2018-06-12 14:10] VITALS: BP 133/78
[2018-06-12] MEDS: ATORVASTATIN 20 MG TAB PO SCH (21:58)
[2018-06-12] MEDS: LIDOCAINE 5% (LIDODERM) PATCH TD SCH (21:59)
[2018-06-12 22:00] VITALS: BP 137/74
[2018-06-13 06:00] VITALS: BP 145/76
[2018-06-13] MEDS: SODIUM CHLORIDE 0.9% INJ 10 ML SYR IV SCH ×2 (06:21→17:07)
[2018-06-13] MEDS: **hydrALAZINE** 10 MG TAB PO SCH ×3 (06:22→21:00)
[2018-06-13] MEDS: HumaLOG INSULIN (NovoLOG) PER UNIT SC SCH ×4 (07:30→20:59)
[2018-06-13] MEDS: **NOTE PATIENT COMMENT** MISC XX SCH (09:00)
[2018-06-13] MEDS: FERROUS SULFATE 300MG/5ML UDC LIQUID PO SCH (09:00)
[2018-06-13] MEDS: NYSTATIN 100,000 UNITS/GM TOPICAL PWD 15 GM TOP SCH ×2 (09:00→20:59)
[2018-06-13] MEDS: MIRALAX *UNIT DOSE* 17GM PACKET PO SCH ×2 (09:00→20:55)
[2018-06-13] MEDS: EUCERIN 120GM CREAM TOP SCH ×2 (09:00→20:58)
[2018-06-13] MEDS: LANSOPRAZOLE SUSPENSION 30 MG/10 ML ORAL SYRINGE (FIRST-LANSOPRAZOLE) PO SCH (09:00)
[2018-06-13] MEDS: POTASSIUM CHLORIDE 10% LIQ 20 MEQ/15 ML UDC PO SCH ×2 (09:00→20:59)
[2018-06-13] MEDS: MULTIVITAMIN/MINERALS LIQUID 15ML ORAL SYRINGE PO SCH (09:00)
[2018-06-13] MEDS: LIDOCAINE 5% OINT 30 GM TOP SCH (09:00)
[2018-06-13] MEDS: FEBUXOSTAT 40 MG TABLET (ULORIC) PO SCH (10:36)
[2018-06-13] MEDS: ISOSORBIDE DIN. (ISORDIL) 30 MG TAB PO SCH ×3 (10:37→20:57)
[2018-06-13] MEDS: guaiFENesin ER 600 MG TAB PO SCH ×2 (10:37→20:56)
[2018-06-13] MEDS: CARVedilol 12.5 MG TAB PO SCH ×2 (10:38→20:57)
[2018-06-13] MEDS: ASPIRIN 81 MG CHEW TABLET PO SCH (10:38)
[2018-06-13] MEDS: FUROSEMIDE 40 MG TAB PO SCH ×2 (10:39→17:06)
[2018-06-13] MEDS: SPIRONOLACTONE 25 MG TAB PO SCH ×2 (10:39→20:57)
[2018-06-13] MEDS: traMADol 50 MG TAB PO SCH ×4 (10:39→20:58)
[2018-06-13] MEDS: SENOKOT S TAB PO SCH ×2 (10:40→20:55)
[2018-06-13 11:17] LABS: HEMATOCRIT 33.1 % (42.0-52.0); HEMOGLOBIN 10.1 g/dl (13.5-17.5); MEAN CORPUSCULAR HEMOGLOBIN 26.1 pg (27.0-33.0); MEAN CORPUSCULAR HGB CONC 30.5 g/dl (32.0-36.5); MEAN CORPUSCULAR VOLUME 85.5 fl (80.0-96.0); PLATELET COUNT, AUTOMATED 148 10^3/uL (150-450); RED BLOOD COUNT 3.87 10^6/uL (4.30-6.10); WHITE BLOOD COUNT 5.5 10^3/uL (4.0-10.0)
[2018-06-13 11:39] LABS: CALCIUM LEVEL 8.4 MG/DL (8.8-10.2); CREATININE FOR GFR 1.78 MG/DL (0.70-1.30); GLOMERULAR FILTRATION RATE 40.1 (>42); MAGNESIUM LEVEL 1.8 MG/DL (1.8-2.4); POTASSIUM SERUM 4.1 MEQ/L (3.5-5.1)
[2018-06-13 14:00] VITALS: BP 114/64
[2018-06-13] MEDS: LIDOCAINE 5% (LIDODERM) PATCH TD SCH (20:55)
[2018-06-13] MEDS: ATORVASTATIN 20 MG TAB PO SCH (20:56)
[2018-06-13 22:00] VITALS: BP 128/72
--- NOTE | 2018-06-13 23:10 | IPN ---
DATE: 06/13/2018 Patient seen and examined. No acute events overnight. Currently tolerating medication. No new complaint. Denies any nausea, vomiting, abdominal pain. Denies any chest pain, palpitations, tolerating medication at this time. VITAL SIGNS: Temperature 97.5, pulse 64, respirations 18, blood pressure 120/65, pulse oximetry 97% on 1 liter nasal cannula. LABORATORY DATA: WBC 5.5, hemoglobin and hematocrit 10.1 over 33.1, platelets 148. Chemistry: Sodium 140, potassium 4.1, chloride 99, bicarbonate 31, BUN 26, creatinine 1.78. PHYSICAL EXAMINATION: GENERAL: Patient alert, comfortable, in no acute distress. Frail. HEENT: Normocephalic, atraumatic. Moist mucous membranes. NECK: Supple. No jugular venous distention (JVD). CARDIAC: Regular, S1, S2. PULMONARY: Diminished breath sounds bilateral. Minimal rhonchi. ABDOMEN: Soft, nontender. Positive bowel sounds. EXTREMITIES: Trace edema bilateral lower extremities. ASSESSMENT AND PLAN: This is a 72-year-old male patient with underlying medical history of atrial fibrillation, congestive heart failure (CHF) with diastolic and systolic dysfunction, ejection fraction (EF) of 35-40%, coronary artery disease, diabetes, chronic kidney disease stage III, gout, lumbar degenerative disc disease, spinal stenosis, radiculopathy, history of colon cancer, history of skin cancer, iron deficiency anemia, mitral insufficiency, dyslipidemia, initially presented with weakness, diarrhea, found to be having Enterococcus faecalis bacteremia possibly due to discitis. Hospital course complicated with severe deconditioning, cardiorenal syndrome requiring dobutamine drip twice and also complicated with poor oral intake. PROBLEMS: 1. Acute on chronic renal insufficiency. Baseline chronic kidney disease stage III, possibly secondary to medication, gentamicin, Entresto, bacteremia versus cardiorenal. Nephrology has been consulted. Initial episode due to gentamicin, Entresto and also bacteremia. Has improved with some hydration and discontinuation of offending agent. But subsequently two episode is associated with cardiorenal, improved with dobutamine drip and diuresis. Appreciate nephrology input. 2. Status post acute on chronic systolic and diastolic congestive heart failure (CHF). Entresto on hold. Continue diuresis. Continue statin, aspirin. Cardiology consulted. Currently off of dobutamine. Continue diuresis and spirolactone and beta blockers. 3. Status post Enterococcus faecalis bacteremia, possible colitis versus chronic cholecystitis with possible discitis. Appreciate surgery consultation, Dr. Vang; infectious disease consultation, Dr. Palumbo. EEG was done. Bone scan was done. Completed prolonged course of IV antibiotics with ampicillin as recommended by infectious disease. 4. Chronic back pain. CT of the lumbar spine appreciated. Currently symptoms improved. Orthopedics was on consult. Pain management was on consult. Continue current pain medication. 5. Chronic anemia, likely secondary to anemia of chronic disease. Fecal occult was positive. Patient was transfused during this admission. Eliquis is on hold due to fecal occult positive. Attempt to start Eliquis has been made during this hospital course, but after a few days on Eliquis, the patient's anemia worsened. Subsequently, Eliquis was discontinued. 6. Chronic atrial fibrillation. Eliquis on hold due to anemia and fecal occult positive. Continue beta masood. Risks and benefits have been discussed. 7. Diabetes. Continue meantime insulin via protocol. Follow fingersticks. 8. Diarrhea. Resolved. 9. Coronary artery disease. Continue aspirin, beta blockers, diuretics, statin, spironolactone. Entresto on hold. Continue Isordil and hydralazine. 10. Hypertension. Continue medication management above. Adjust as needed. 11. Deep vein thrombosis (DVT) prophylaxis. Thromboembolism deterrents (TEDs) and sequential given patient did not tolerate anticoagulation. 12. Deconditioning. Not tolerating physical therapy. DISPOSITION: Hospice evaluation. 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 Currently DO NOT RESUSCITATE/DO NOT INTUBATE (DNR/DNI). The patient is severely deconditioned, not tolerating physical therapy.
[2018-06-14 06:00] VITALS: BP 125/62
[2018-06-14] MEDS: **hydrALAZINE** 10 MG TAB PO SCH ×3 (06:19→21:55)
[2018-06-14] MEDS: SODIUM CHLORIDE 0.9% INJ 10 ML SYR IV SCH ×2 (06:19→18:00)
[2018-06-14] MEDS: FEBUXOSTAT 40 MG TABLET (ULORIC) PO SCH (09:00)
[2018-06-14] MEDS: guaiFENesin ER 600 MG TAB PO SCH ×2 (09:00→21:58)
[2018-06-14] MEDS: MULTIVITAMIN/MINERALS LIQUID 15ML ORAL SYRINGE PO SCH (09:00)
[2018-06-14] MEDS: traMADol 50 MG TAB PO SCH ×4 (09:00→22:03)
[2018-06-14] MEDS: MIRALAX *UNIT DOSE* 17GM PACKET PO SCH ×2 (09:00→21:00)
[2018-06-14] MEDS: EUCERIN 120GM CREAM TOP SCH ×2 (09:00→22:06)
[2018-06-14] MEDS: SPIRONOLACTONE 25 MG TAB PO SCH ×2 (09:00→21:59)
[2018-06-14] MEDS: LANSOPRAZOLE SUSPENSION 30 MG/10 ML ORAL SYRINGE (FIRST-LANSOPRAZOLE) PO SCH (09:00)
[2018-06-14] MEDS: CARVedilol 12.5 MG TAB PO SCH ×2 (09:00→22:04)
[2018-06-14] MEDS: NYSTATIN 100,000 UNITS/GM TOPICAL PWD 15 GM TOP SCH ×2 (09:00→22:06)
[2018-06-14] MEDS: ISOSORBIDE DIN. (ISORDIL) 30 MG TAB PO SCH ×3 (09:00→22:00)
[2018-06-14] MEDS: **NOTE PATIENT COMMENT** MISC XX SCH (09:00)
[2018-06-14] MEDS: SENOKOT S TAB PO SCH ×2 (09:00→22:01)
[2018-06-14] MEDS: FERROUS SULFATE 300MG/5ML UDC LIQUID PO SCH (09:00)
[2018-06-14] MEDS: ASPIRIN 81 MG CHEW TABLET PO SCH (09:00)
[2018-06-14] MEDS: CALCITRIOL 0.25 MCG CAP (S0169) PO SCH (09:00)
[2018-06-14] MEDS: POTASSIUM CHLORIDE 10% LIQ 20 MEQ/15 ML UDC PO SCH ×2 (09:00→21:00)
[2018-06-14] MEDS: FUROSEMIDE 40 MG TAB PO SCH ×2 (09:00→16:15)
[2018-06-14] MEDS: LIDOCAINE 5% OINT 30 GM TOP SCH (09:00)
[2018-06-14] MEDS: HumaLOG INSULIN (NovoLOG) PER UNIT SC SCH ×4 (09:47→21:00)
[2018-06-14] MEDS: ONDANSETRON 4MG/2ML VIAL (J2405) IV PRN (13:19)
[2018-06-14 14:00] VITALS: BP 113/67
--- NOTE | 2018-06-14 18:44 | IPNPDOC ---
Text Note Date of Service The patient was seen on 06/14/18. NOTE Patient seen and examined. No acute events overnight. Currently tolerating medication. reported weak and increase irritability today. Denies any nausea, vomiting, abdominal pain. Denies any chest pain, palpitations, tolerating medication at this time. PHYSICAL EXAMINATION: GENERAL: Patient alert, comfortable, in no acute distress. Frail. HEENT: Normocephalic, atraumatic. Moist mucous membranes. NECK: Supple. No jugular venous distention (JVD). CARDIAC: Regular, S1, S2. PULMONARY: Diminished breath sounds bilateral. Minimal rhonchi. ABDOMEN: Soft, nontender. Positive bowel sounds. EXTREMITIES: Trace edema bilateral lower extremities. ASSESSMENT AND PLAN: This is a 72-year-old male patient with underlying medical history of atrial fibrillation, congestive heart failure (CHF) with diastolic and systolic dysfunction, ejection fraction (EF) of 35-40%, coronary artery disease, diabetes, chronic kidney disease stage III, gout, lumbar degenerative disc disease, spinal stenosis, radiculopathy, history of colon cancer, history of skin cancer, iron deficiency anemia, mitral insufficiency, dyslipidemia, initially presented with weakness, diarrhea, found to be having Enterococcus faecalis bacteremia possibly due to discitis. Hospital course complicated with severe deconditioning, cardiorenal syndrome requiring dobutamine drip twice and also complicated with poor oral intake. PROBLEMS: 1. Acute on chronic renal insufficiency. Baseline chronic kidney disease stage III, initial episode possibly secondary to medication, gentamicin, Entresto, bacteremia versus cardiorenal. Nephrology has been consulted. Has improved with some hydration and discontinuation of offending agent. But subsequently two episode is associated with cardiorenal, improved with dobutamine drip and diuresis. Appreciate nephrology input. 2. Status post acute on chronic systolic and diastolic congestive heart failure (CHF). Entresto on hold. Continue diuresis. Continue statin, aspirin. Cardiology consulted. Currently off of dobutamine. Continue diuresis and spirolactone and beta blockers. 3. Status post Enterococcus faecalis bacteremia, possible colitis versus chronic cholecystitis with possible discitis. Appreciate surgery consultation, Dr. Vang; infectious disease consultation, Dr. Palumbo. EEG was done. Bone scan was done. Completed prolonged course of IV antibiotics with ampicillin. 4. Chronic back pain. CT of the lumbar spine appreciated. Currently symptoms improved. Orthopedics was on consult. Pain management was on consult. Continue current pain medication. 5. Chronic anemia, likely secondary to anemia of chronic disease. Fecal occult was positive. Patient was transfused during this admission. Eliquis is on hold due to fecal occult positive. Attempt to start Eliquis has been made during this hospital course, but after a few days on Eliquis, the patient's anemia worsened. Subsequently, Eliquis was discontinued. 6. Chronic atrial fibrillation. Eliquis on hold due to anemia and fecal occult positive. Continue beta masood. Risks and benefits have been discussed. 7. Diabetes. Continue meantime insulin via protocol. Follow fingersticks. 8. Diarrhea. Resolved. 9. Coronary artery disease. Continue aspirin, beta blockers, diuretics, statin, spironolactone. Entresto on hold. Continue Isordil and hydralazine. 10. Hypertension. Continue medication management above. Adjust as needed. 11. Deep vein thrombosis (DVT) prophylaxis. Thromboembolism deterrents (TEDs) and sequential given patient did not tolerate anticoagulation. 12. Deconditioning. Not tolerating physical therapy. DISPOSITION: Hospice evaluation. 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 Currently DO NOT RESUSCITATE/DO NOT INTUBATE (DNR/DNI). The patient is severely deconditioned, not tolerating physical therapy. VS,Fishbone, I+O VS, Fishbone, I+O Vital Signs Date Time Temp Pulse Resp B/P (MAP) Pulse Ox O2 Delivery O2 Flow Rate FiO2 06/14/18 16:16 17 06/14/18 16:15 142/65 06/14/18 14:00 96.5 87 95 Nasal Cannula 1.0 I&O- Last 24 Hours up to 6 AM 06/14/18 05:59 Intake Total 1140 ml Output Total 725 ml Balance 415 ml DARY LUNDBERG MD Jun 14, 2018 18:44
[2018-06-14] MEDS: LIDOCAINE 5% (LIDODERM) PATCH TD SCH (21:00)
[2018-06-14 22:00] VITALS: BP 120/62
[2018-06-14] MEDS: ATORVASTATIN 20 MG TAB PO SCH (22:02)
[2018-06-15] MEDS: **hydrALAZINE** 10 MG TAB PO SCH ×3 (05:09→21:03)
[2018-06-15] MEDS: SODIUM CHLORIDE 0.9% INJ 10 ML SYR IV SCH ×2 (05:09→18:00)
[2018-06-15 05:33] LABS: HEMATOCRIT 31.8 % (42.0-52.0); HEMOGLOBIN 9.8 g/dl (13.5-17.5); MEAN CORPUSCULAR HEMOGLOBIN 26.3 pg (27.0-33.0); MEAN CORPUSCULAR HGB CONC 30.8 g/dl (32.0-36.5); MEAN CORPUSCULAR VOLUME 85.5 fl (80.0-96.0); PLATELET COUNT, AUTOMATED 157 10^3/uL (150-450); RED BLOOD COUNT 3.72 10^6/uL (4.30-6.10); WHITE BLOOD COUNT 6.2 10^3/uL (4.0-10.0)
[2018-06-15 05:52] LABS: CALCIUM LEVEL 8.2 MG/DL (8.8-10.2); CREATININE FOR GFR 2.02 MG/DL (0.70-1.30); GLOMERULAR FILTRATION RATE 34.6 (>42); MAGNESIUM LEVEL 1.8 MG/DL (1.8-2.4); POTASSIUM SERUM 4.1 MEQ/L (3.5-5.1)
[2018-06-15 06:00] VITALS: BP 123/72
[2018-06-15] MEDS: FERROUS SULFATE 300MG/5ML UDC LIQUID PO SCH (09:00)
[2018-06-15] MEDS: MIRALAX *UNIT DOSE* 17GM PACKET PO SCH ×2 (09:00→20:49)
[2018-06-15] MEDS: SENOKOT S TAB PO SCH ×2 (09:00→20:52)
[2018-06-15] MEDS: EUCERIN 120GM CREAM TOP SCH ×2 (09:00→20:54)
[2018-06-15] MEDS: LANSOPRAZOLE SUSPENSION 30 MG/10 ML ORAL SYRINGE (FIRST-LANSOPRAZOLE) PO SCH (09:00)
[2018-06-15] MEDS: POTASSIUM CHLORIDE 10% LIQ 20 MEQ/15 ML UDC PO SCH ×2 (09:00→20:49)
[2018-06-15] MEDS: **NOTE PATIENT COMMENT** MISC XX SCH (09:00)
[2018-06-15] MEDS: NYSTATIN 100,000 UNITS/GM TOPICAL PWD 15 GM TOP SCH ×2 (09:00→20:54)
[2018-06-15] MEDS: MULTIVITAMIN/MINERALS LIQUID 15ML ORAL SYRINGE PO SCH (09:00)
[2018-06-15] MEDS: LIDOCAINE 5% OINT 30 GM TOP SCH (09:00)
[2018-06-15] MEDS: HumaLOG INSULIN (NovoLOG) PER UNIT SC SCH ×4 (10:06→20:49)
[2018-06-15] MEDS: FEBUXOSTAT 40 MG TABLET (ULORIC) PO SCH (10:07)
[2018-06-15] MEDS: CARVedilol 12.5 MG TAB PO SCH ×2 (10:07→20:52)
[2018-06-15] MEDS: FUROSEMIDE 40 MG TAB PO SCH ×2 (10:08→16:49)
[2018-06-15] MEDS: SPIRONOLACTONE 25 MG TAB PO SCH ×2 (10:08→20:52)
[2018-06-15] MEDS: ASPIRIN 81 MG CHEW TABLET PO SCH (10:08)
[2018-06-15] MEDS: ISOSORBIDE DIN. (ISORDIL) 30 MG TAB PO SCH ×3 (10:08→20:51)
[2018-06-15] MEDS: traMADol 50 MG TAB PO SCH ×4 (10:09→20:53)
[2018-06-15] MEDS: guaiFENesin ER 600 MG TAB PO SCH ×2 (10:09→20:49)
[2018-06-15 14:00] VITALS: BP 122/76
--- NOTE | 2018-06-15 18:54 | IPNPDOC ---
Text Note Date of Service The patient was seen on 06/15/18. NOTE Patient seen and examined. No acute events overnight. Currently tolerating medication. Denies any nausea, vomiting, abdominal pain. Denies any chest pain, palpitations. poor po. PHYSICAL EXAMINATION: GENERAL: Patient alert, comfortable, in no acute distress. Frail. HEENT: Normocephalic, atraumatic. Moist mucous membranes. NECK: Supple. No jugular venous distention (JVD). CARDIAC: Regular, S1, S2. PULMONARY: Diminished breath sounds bilateral. Minimal rhonchi. ABDOMEN: Soft, nontender. Positive bowel sounds. EXTREMITIES: Trace edema bilateral lower extremities. venous stasis skin changes ASSESSMENT AND PLAN: This is a 72-year-old male patient with underlying medical history of atrial fibrillation, congestive heart failure (CHF) with diastolic and systolic dysfunction, ejection fraction (EF) of 35-40%, coronary artery disease, diabetes, chronic kidney disease stage III, gout, lumbar degenerative disc disease, spinal stenosis, radiculopathy, history of colon cancer, history of skin cancer, iron deficiency anemia, mitral insufficiency, dyslipidemia, initially presented with weakness, diarrhea, found to be having Enterococcus faecalis bacteremia possibly due to discitis. Hospital course complicated with severe deconditioning, cardiorenal syndrome requiring dobutamine drip twice and also complicated with poor oral intake. PROBLEMS: 1. Acute on chronic renal insufficiency. Baseline chronic kidney disease stage III, initial episode possibly secondary to medication, gentamicin, Entresto, bacteremia. Nephrology has been consulted. Has improved with some hydration and discontinuation of offending agent. But subsequently two episode is associated with cardiorenal, improved with dobutamine drip and diuresis. Appreciate nephrology input. currently Cr increased, if worsen, might need dobutamin drip and diuresis. d/w renal 2. Status post acute on chronic systolic and diastolic congestive heart failure (CHF). Entresto on hold. Continue diuresis. Continue statin, aspirin. Cardiology consulted. Currently off of dobutamine. Continue diuresis and spirolactone and beta blockers. 3. Status post Enterococcus faecalis bacteremia, possible colitis versus chronic cholecystitis with possible discitis. Appreciate surgery consultation, Dr. Vang; infectious disease consultation, Dr. Palumbo. EEG was done. Bone scan was done. Completed prolonged course of IV antibiotics with ampicillin. 4. Chronic back pain. CT of the lumbar spine appreciated. Currently symptoms improved. Orthopedics was on consult. Pain management was on consult. Continue current pain medication. 5. Chronic anemia, likely secondary to anemia of chronic disease. Fecal occult was positive. Patient was transfused during this admission. Eliquis is on hold due to fecal occult positive. Attempt to restart Eliquis has been made during this hospital course, but after a few days on Eliquis, the patient's anemia worsened. Subsequently, Eliquis was discontinued. 6. Chronic atrial fibrillation. Eliquis on hold due to anemia and fecal occult positive. Continue beta masood. Risks and benefits have been discussed. 7. Diabetes. Continue meantime insulin via protocol. Follow fingersticks. 8. Diarrhea. Resolved. 9. Coronary artery disease. Continue aspirin, beta blockers, diuretics, statin, spironolactone. Entresto on hold. Continue Isordil and hydralazine. 10. Hypertension. Continue medication management above. Adjust as needed. 11. Deep vein thrombosis (DVT) prophylaxis. Thromboembolism deterrents (TEDs) and sequential given patient did not tolerate anticoagulation. 12. Deconditioning. Not tolerating physical therapy. DISPOSITION: Hospice evaluation. 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 Currently DO NOT RESUSCITATE/DO NOT INTUBATE (DNR/DNI). The patient is severely deconditioned, not tolerating physical therapy. VS,Fishbone, I+O VS, Fishbone, I+O Laboratory Tests 06/15/18 05:11 Red Blood Count 3.72 L, Mean Corpuscular Volume 85.5, Mean Corpuscular Hemoglobin 26.3 L, Mean Corpuscular Hemoglobin Concent 30.8 L, Red Cell Distribution Width 16.1 H, Calcium Level 8.2 L Vital Signs Date Time Temp Pulse Resp B/P (MAP) Pulse Ox O2 Delivery O2 Flow Rate FiO2 06/15/18 16:49 18 06/15/18 16:00 122/76 06/15/18 14:00 97.6 78 98 Nasal Cannula 1.0 I&O- Last 24 Hours up to 6 AM 06/15/18 06:00 Intake Total 340 ml Output Total 650 ml Balance -310 ml DARY LUNDBERG MD Jun 15, 2018 18:54
[2018-06-15] MEDS: LIDOCAINE 5% (LIDODERM) PATCH TD SCH ×2 (20:50→21:00)
[2018-06-15] MEDS: ATORVASTATIN 20 MG TAB PO SCH (20:51)
[2018-06-15 22:00] VITALS: BP 120/70
[2018-06-16] MEDS: **hydrALAZINE** 10 MG TAB PO SCH ×4 (05:20→22:05)
[2018-06-16] MEDS: SODIUM CHLORIDE 0.9% INJ 10 ML SYR IV SCH ×2 (05:21→18:00)
[2018-06-16 06:00] VITALS: BP 135/63
[2018-06-16 07:09] LABS: CALCIUM LEVEL 8.6 MG/DL (8.8-10.2); CREATININE FOR GFR 2.04 MG/DL (0.70-1.30); GLOMERULAR FILTRATION RATE 34.2 (>42)
[2018-06-16] MEDS: LANSOPRAZOLE SUSPENSION 30 MG/10 ML ORAL SYRINGE (FIRST-LANSOPRAZOLE) PO SCH (09:00)
[2018-06-16] MEDS: NYSTATIN 100,000 UNITS/GM TOPICAL PWD 15 GM TOP SCH ×2 (09:00→21:41)
[2018-06-16] MEDS: guaiFENesin ER 600 MG TAB PO SCH ×2 (09:00→20:44)
[2018-06-16] MEDS: MULTIVITAMIN/MINERALS LIQUID 15ML ORAL SYRINGE PO SCH (09:00)
[2018-06-16] MEDS: FERROUS SULFATE 300MG/5ML UDC LIQUID PO SCH (09:00)
[2018-06-16] MEDS: EUCERIN 120GM CREAM TOP SCH ×2 (09:00→21:40)
[2018-06-16] MEDS: POTASSIUM CHLORIDE 10% LIQ 20 MEQ/15 ML UDC PO SCH ×2 (09:00→20:44)
[2018-06-16] MEDS: MIRALAX *UNIT DOSE* 17GM PACKET PO SCH ×2 (09:00→20:44)
[2018-06-16] MEDS: LIDOCAINE 5% OINT 30 GM TOP SCH (09:00)
[2018-06-16] MEDS: SENOKOT S TAB PO SCH ×3 (09:00→22:03)
[2018-06-16] MEDS: **NOTE PATIENT COMMENT** MISC XX SCH (09:00)
[2018-06-16] MEDS: SPIRONOLACTONE 25 MG TAB PO SCH ×3 (09:36→22:04)
[2018-06-16] MEDS: HumaLOG INSULIN (NovoLOG) PER UNIT SC SCH ×4 (09:36→20:45)
[2018-06-16] MEDS: ISOSORBIDE DIN. (ISORDIL) 30 MG TAB PO SCH ×4 (09:37→22:03)
[2018-06-16] MEDS: traMADol 50 MG TAB PO SCH ×5 (09:38→22:04)
[2018-06-16] MEDS: FEBUXOSTAT 40 MG TABLET (ULORIC) PO SCH (09:38)
[2018-06-16] MEDS: CALCITRIOL 0.25 MCG CAP (S0169) PO SCH (09:38)
[2018-06-16] MEDS: ASPIRIN 81 MG CHEW TABLET PO SCH (09:38)
[2018-06-16] MEDS: FUROSEMIDE 40 MG TAB PO SCH ×2 (09:39→16:48)
[2018-06-16] MEDS: CARVedilol 12.5 MG TAB PO SCH ×3 (09:39→22:05)
[2018-06-16] MEDS: ONDANSETRON 4MG/2ML VIAL (J2405) IV PRN (10:08)
[2018-06-16 14:00] VITALS: BP 135/78
--- NOTE | 2018-06-16 20:24 | IPNPDOC ---
Text Note Date of Service The patient was seen on 06/16/18. NOTE Patient seen and examined. No acute events overnight. Currently tolerating medication. Denies any nausea, vomiting, abdominal pain. Denies any chest pain, palpitations. poor po. PHYSICAL EXAMINATION: GENERAL: Patient alert, comfortable, in no acute distress. Frail. HEENT: Normocephalic, atraumatic. Moist mucous membranes. NECK: Supple. No jugular venous distention (JVD). CARDIAC: Regular, S1, S2. PULMONARY: Diminished breath sounds bilateral. Minimal rhonchi. ABDOMEN: Soft, nontender. Positive bowel sounds. EXTREMITIES: Trace edema bilateral lower extremities. venous stasis skin changes ASSESSMENT AND PLAN: This is a 72-year-old male patient with underlying medical history of atrial fibrillation, congestive heart failure (CHF) with diastolic and systolic dysfunction, ejection fraction (EF) of 35-40%, coronary artery disease, diabetes, chronic kidney disease stage III, gout, lumbar degenerative disc disease, spinal stenosis, radiculopathy, history of colon cancer, history of skin cancer, iron deficiency anemia, mitral insufficiency, dyslipidemia, initially presented with weakness, diarrhea, found to be having Enterococcus faecalis bacteremia possibly due to discitis. Hospital course complicated with severe deconditioning, cardiorenal syndrome requiring dobutamine drip twice and also complicated with poor oral intake. PROBLEMS: 1. Acute on chronic renal insufficiency. Baseline chronic kidney disease stage III, initial episode possibly secondary to medication, gentamicin, Entresto, bacteremia. Nephrology has been consulted. Has improved with some hydration and discontinuation of offending agent. But subsequently two episode is associated with cardiorenal, improved with dobutamine drip and diuresis. Appreciate nephrology input. currently Cr increased, if worsen, might need dobutamin drip and diuresis. d/w renal 2. Status post acute on chronic systolic and diastolic congestive heart failure (CHF). Entresto on hold. Continue diuresis. Continue statin, aspirin. Cardiology consulted. Currently off of dobutamine. Continue diuresis and spirolactone and beta blockers. 3. Status post Enterococcus faecalis bacteremia, possible colitis versus chronic cholecystitis with possible discitis. Appreciate surgery consultation, Dr. Vang; infectious disease consultation, Dr. Palumbo. EEG was done. Bone scan was done. Completed prolonged course of IV antibiotics with ampicillin. 4. Chronic back pain. CT of the lumbar spine appreciated. Currently symptoms improved. Orthopedics was on consult. Pain management was on consult. Continue current pain medication. 5. Chronic anemia, likely secondary to anemia of chronic disease. Fecal occult was positive. Patient was transfused during this admission. Eliquis is on hold due to fecal occult positive. Attempt to restart Eliquis has been made during this hospital course, but after a few days on Eliquis, the patient's anemia worsened. Subsequently, Eliquis was discontinued. 6. Chronic atrial fibrillation. Eliquis on hold due to anemia and fecal occult positive. Continue beta masood. Risks and benefits have been discussed. 7. Diabetes. Continue meantime insulin via protocol. Follow fingersticks. 8. Diarrhea. Resolved. 9. Coronary artery disease. Continue aspirin, beta blockers, diuretics, statin, spironolactone. Entresto on hold. Continue Isordil and hydralazine. 10. Hypertension. Continue medication management above. Adjust as needed. 11. Deep vein thrombosis (DVT) prophylaxis. Thromboembolism deterrents (TEDs) and sequential given patient did not tolerate anticoagulation. 12. Deconditioning. Not tolerating physical therapy. DISPOSITION: Hospice evaluation. 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 Currently DO NOT RESUSCITATE/DO NOT INTUBATE (DNR/DNI). The patient is severely deconditioned, not tolerating physical therapy. VS,Fishbone, I+O VS, Fishbone, I+O Laboratory Tests 06/16/18 06:28 Calcium Level 8.6 L Vital Signs Date Time Temp Pulse Resp B/P (MAP) Pulse Ox O2 Delivery O2 Flow Rate FiO2 06/16/18 16:50 135/75 06/16/18 16:49 17 06/16/18 14:00 97.3 58 99 Nasal Cannula 1.0 I&O- Last 24 Hours up to 6 AM 06/16/18 06:00 Intake Total 390 ml Output Total 350 ml Balance 40 ml DARY LUNDBERG MD Jun 16, 2018 20:24
[2018-06-16] MEDS: LIDOCAINE 5% (LIDODERM) PATCH TD SCH (21:00)
[2018-06-16] MEDS: ATORVASTATIN 20 MG TAB PO SCH ×2 (21:00→22:04)
[2018-06-16 22:00] VITALS: BP 153/81
[2018-06-17 06:00] VITALS: BP 149/82
[2018-06-17] MEDS: **hydrALAZINE** 10 MG TAB PO SCH ×3 (06:20→22:00)
[2018-06-17] MEDS: SODIUM CHLORIDE 0.9% INJ 10 ML SYR IV SCH ×2 (06:21→17:43)
[2018-06-17] MEDS: HumaLOG INSULIN (NovoLOG) PER UNIT SC SCH ×4 (07:30→21:00)
[2018-06-17 07:31] LABS: HEMATOCRIT 33.4 % (42.0-52.0); MEAN CORPUSCULAR HEMOGLOBIN 25.7 pg (27.0-33.0); MEAN CORPUSCULAR HGB CONC 29.9 g/dl (32.0-36.5); MEAN CORPUSCULAR VOLUME 85.9 fl (80.0-96.0); PLATELET COUNT, AUTOMATED 126 10^3/uL (150-450); RED BLOOD COUNT 3.89 10^6/uL (4.30-6.10); WHITE BLOOD COUNT 5.6 10^3/uL (4.0-10.0)
[2018-06-17 07:51] LABS: CALCIUM LEVEL 8.4 MG/DL (8.8-10.2); CREATININE FOR GFR 2.2 MG/DL (0.70-1.30); GLOMERULAR FILTRATION RATE 31.4 (>42); MAGNESIUM LEVEL 1.8 MG/DL (1.8-2.4); POTASSIUM SERUM 4.3 MEQ/L (3.5-5.1)
[2018-06-17] MEDS: MIRALAX *UNIT DOSE* 17GM PACKET PO SCH ×2 (09:00→21:00)
[2018-06-17] MEDS: MULTIVITAMIN/MINERALS LIQUID 15ML ORAL SYRINGE PO SCH (09:00)
[2018-06-17] MEDS: **NOTE PATIENT COMMENT** MISC XX SCH (09:00)
[2018-06-17] MEDS: SENOKOT S TAB PO SCH ×2 (09:00→21:00)
[2018-06-17] MEDS: POTASSIUM CHLORIDE 10% LIQ 20 MEQ/15 ML UDC PO SCH (09:00)
[2018-06-17] MEDS: EUCERIN 120GM CREAM TOP SCH ×3 (09:00→21:00)
[2018-06-17] MEDS: traMADol 50 MG TAB PO SCH ×4 (10:20→21:00)
[2018-06-17] MEDS: CARVedilol 12.5 MG TAB PO SCH ×2 (10:22→21:00)
[2018-06-17] MEDS: ISOSORBIDE DIN. (ISORDIL) 30 MG TAB PO SCH ×3 (10:22→21:00)
[2018-06-17] MEDS: SPIRONOLACTONE 25 MG TAB PO SCH (10:22)
[2018-06-17] MEDS: FUROSEMIDE 40 MG TAB PO SCH (10:23)
[2018-06-17] MEDS: ASPIRIN 81 MG CHEW TABLET PO SCH (10:23)
[2018-06-17] MEDS: FEBUXOSTAT 40 MG TABLET (ULORIC) PO SCH (10:24)
[2018-06-17] MEDS: ONDANSETRON 4MG/2ML VIAL (J2405) IV PRN (10:33)
[2018-06-17] MEDS: LIDOCAINE 5% OINT 30 GM TOP SCH ×2 (10:34→10:48)
[2018-06-17] MEDS: NYSTATIN 100,000 UNITS/GM TOPICAL PWD 15 GM TOP SCH ×2 (10:34→21:00)
[2018-06-17] MEDS: guaiFENesin ER 600 MG TAB PO SCH ×2 (10:47→21:00)
[2018-06-17] MEDS: FERROUS SULFATE 300MG/5ML UDC LIQUID PO SCH (10:47)
[2018-06-17] MEDS: LANSOPRAZOLE SUSPENSION 30 MG/10 ML ORAL SYRINGE (FIRST-LANSOPRAZOLE) PO SCH (10:47)
[2018-06-17 14:00] VITALS: BP 157/92
--- NOTE | 2018-06-17 19:45 | IPNPDOC ---
Text Note Date of Service The patient was seen on 06/17/18. NOTE Patient seen and examined. No acute events overnight. Currently tolerating medication. Denies any nausea, vomiting, abdominal pain. Denies any chest pain, palpitations. poor po. PHYSICAL EXAMINATION: GENERAL: Patient alert, comfortable, in no acute distress. Frail. HEENT: Normocephalic, atraumatic. Moist mucous membranes. NECK: Supple. No jugular venous distention (JVD). CARDIAC: Regular, S1, S2. PULMONARY: Diminished breath sounds bilateral. Minimal rhonchi. ABDOMEN: Soft, nontender. Positive bowel sounds. EXTREMITIES: Trace edema bilateral lower extremities. venous stasis skin changes ASSESSMENT AND PLAN: This is a 72-year-old male patient with underlying medical history of atrial fibrillation, congestive heart failure (CHF) with diastolic and systolic dysfunction, ejection fraction (EF) of 35-40%, coronary artery disease, diabetes, chronic kidney disease stage III, gout, lumbar degenerative disc disease, spinal stenosis, radiculopathy, history of colon cancer, history of skin cancer, iron deficiency anemia, mitral insufficiency, dyslipidemia, initially presented with weakness, diarrhea, found to be having Enterococcus faecalis bacteremia possibly due to discitis. Hospital course complicated with severe deconditioning, cardiorenal syndrome requiring dobutamine drip twice and also complicated with poor oral intake. PROBLEMS: 1. Acute on chronic renal insufficiency. Baseline chronic kidney disease stage III, initial episode possibly secondary to medication, gentamicin, Entresto, bacteremia. Nephrology has been consulted. Has improved with some hydration and discontinuation of offending agent. But subsequently two episode is associated with cardiorenal, improved with dobutamine drip and diuresis. Appreciate nephrology input. currently Cr increased, if worsen, d/w renal hold diuresis for 2 days. 2. Status post acute on chronic systolic and diastolic congestive heart failure (CHF). Entresto on hold. hold diuresis tosemide and spirolactone for 2 days as per renal. Continue statin, aspirin. Cardiology consulted. Currently off of dobutamine. Continue beta blockers. 3. Status post Enterococcus faecalis bacteremia, possible colitis versus chronic cholecystitis with possible discitis. Appreciate surgery consultation, Dr. Vang; infectious disease consultation, Dr. Palumbo. EEG was done. Bone scan was done. Completed prolonged course of IV antibiotics with ampicillin. 4. Chronic back pain. CT of the lumbar spine appreciated. Currently symptoms improved. Orthopedics was on consult. Pain management was on consult. Continue current pain medication. 5. Chronic anemia, likely secondary to anemia of chronic disease. Fecal occult was positive. Patient was transfused during this admission. Eliquis is on hold due to fecal occult positive. Attempt to restart Eliquis has been made during this hospital course, but after a few days on Eliquis, the patient's anemia worsened. Subsequently, Eliquis was discontinued. 6. Chronic atrial fibrillation. Eliquis on hold due to anemia and fecal occult positive. Continue beta masood. Risks and benefits have been discussed. 7. Diabetes. Continue meantime insulin via protocol. Follow fingersticks. 8. Diarrhea. Resolved. 9. Coronary artery disease. Continue aspirin, beta blockers, statin, hold torsemide and spironolactone in light of elevated cr. Entresto on hold. Continue Isordil and hydralazine. 10. Hypertension. Continue medication management above. Adjust as needed. 11. Deep vein thrombosis (DVT) prophylaxis. Thromboembolism deterrents (TEDs) and sequential given patient did not tolerate anticoagulation. 12. Deconditioning. Not tolerating physical therapy. DISPOSITION: Hospice evaluation. 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 Currently DO NOT RESUSCITATE/DO NOT INTUBATE (DNR/DNI). The patient is severely deconditioned, not tolerating physical therapy. VS,Fishbone, I+O VS, Fishbone, I+O Laboratory Tests 06/17/18 07:15 Red Blood Count 3.89 L, Mean Corpuscular Volume 85.9, Mean Corpuscular Hemog lobin 25.7 L, Mean Corpuscular Hemoglobin Concent 29.9 L, Red Cell Distribution Width 16.0 H, Calcium Level 8.4 L Vital Signs Date Time Temp Pulse Resp B/P (MAP) Pulse Ox O2 Delivery O2 Flow Rate FiO2 06/17/18 17:44 20 06/17/18 17:44 157/92 06/17/18 15:48 98.0 06/17/18 14:00 96 95 Nasal Cannula 1.0 I&O- Last 24 Hours up to 6 AM 06/17/18 06:00 Intake Total 120 ml Output Total 900 ml Balance -780 ml DARY LUNDBERG MD Jun 17, 2018 19:45
[2018-06-17] MEDS: ATORVASTATIN 20 MG TAB PO SCH (21:00)
[2018-06-17] MEDS: LIDOCAINE 5% (LIDODERM) PATCH TD SCH (21:00)
[2018-06-17 22:00] VITALS: BP 138/70
[2018-06-18 06:00] VITALS: BP 117/59
[2018-06-18] MEDS: SODIUM CHLORIDE 0.9% INJ 10 ML SYR IV SCH ×2 (06:00→17:46)
[2018-06-18] MEDS: **hydrALAZINE** 10 MG TAB PO SCH ×3 (06:00→21:17)
[2018-06-18 07:38] LABS: CALCIUM LEVEL 8.5 MG/DL (8.8-10.2); CREATININE FOR GFR 2.3 MG/DL (0.70-1.30); GLOMERULAR FILTRATION RATE 29.8 (>42); POTASSIUM SERUM 4.2 MEQ/L (3.5-5.1)
[2018-06-18] MEDS: SENOKOT S TAB PO SCH ×2 (09:00→21:43)
[2018-06-18] MEDS: MULTIVITAMIN/MINERALS LIQUID 15ML ORAL SYRINGE PO SCH (09:00)
[2018-06-18] MEDS: **NOTE PATIENT COMMENT** MISC XX SCH (09:00)
[2018-06-18] MEDS: LANSOPRAZOLE SUSPENSION 30 MG/10 ML ORAL SYRINGE (FIRST-LANSOPRAZOLE) PO SCH (09:00)
[2018-06-18] MEDS: MIRALAX *UNIT DOSE* 17GM PACKET PO SCH ×2 (09:00→21:00)
[2018-06-18] MEDS: FERROUS SULFATE 300MG/5ML UDC LIQUID PO SCH (09:00)
[2018-06-18] MEDS: guaiFENesin ER 600 MG TAB PO SCH ×2 (09:00→21:00)
[2018-06-18] MEDS: HumaLOG INSULIN (NovoLOG) PER UNIT SC SCH ×4 (09:46→21:00)
[2018-06-18] MEDS: CARVedilol 12.5 MG TAB PO SCH ×2 (10:35→21:00)
[2018-06-18] MEDS: ASPIRIN 81 MG CHEW TABLET PO SCH (10:36)
[2018-06-18] MEDS: FEBUXOSTAT 40 MG TABLET (ULORIC) PO SCH (10:36)
[2018-06-18] MEDS: ISOSORBIDE DIN. (ISORDIL) 30 MG TAB PO SCH ×4 (10:37→21:42)
[2018-06-18] MEDS: traMADol 50 MG TAB PO SCH ×4 (10:37→21:44)
[2018-06-18] MEDS: NYSTATIN 100,000 UNITS/GM TOPICAL PWD 15 GM TOP SCH ×2 (10:38→21:00)
[2018-06-18] MEDS: EUCERIN 120GM CREAM TOP SCH ×2 (10:38→21:00)
[2018-06-18] MEDS: LIDOCAINE 5% OINT 30 GM TOP SCH (10:38)
[2018-06-18 14:00] VITALS: BP 145/68
--- NOTE | 2018-06-18 15:19 | IPNPDOC ---
Text Note Date of Service The patient was seen on 06/18/18. NOTE Patient seen and examined. No acute events overnight. Currently tolerating medication. Denies any nausea, vomiting, abdominal pain. Denies any chest pain, palpitations. poor po. reported mild back pain PHYSICAL EXAMINATION: GENERAL: Patient alert, comfortable, in no acute distress. Frail. HEENT: Normocephalic, atraumatic. Moist mucous membranes. NECK: Supple. No jugular venous distention (JVD). CARDIAC: Regular, S1, S2. PULMONARY: Diminished breath sounds bilateral. Minimal rhonchi. ABDOMEN: Soft, nontender. Positive bowel sounds. EXTREMITIES: Trace edema bilateral lower extremities. venous stasis skin changes ASSESSMENT AND PLAN: This is a 72-year-old male patient with underlying medical history of atrial fibrillation, congestive heart failure (CHF) with diastolic a nd systolic dysfunction, ejection fraction (EF) of 35-40%, coronary artery disease, diabetes, chronic kidney disease stage III, gout, lumbar degenerative disc disease, spinal stenosis, radiculopathy, history of colon cancer, history of skin cancer, iron deficiency anemia, mitral insufficiency, dyslipidemia, initially presented with weakness, diarrhea, found to be having Enterococcus faecalis bacteremia possibly due to discitis. Hospital course complicated with severe deconditioning, cardiorenal syndrome requiring dobutamine drip twice and also complicated with poor oral intake. PROBLEMS: 1. Acute on chronic renal insufficiency. Baseline chronic kidney disease stage III, initial episode possibly secondary to medication, gentamicin, Entresto, bacteremia. Nephrology has been consulted. Has improved with some hydration and discontinuation of offending agent. But subsequently two episode is associated with cardiorenal, improved with dobutamine drip and diuresis. Appreciate nephrology input. currently Cr increased, d/w renal hold diuresis for 2 days. if worsen consider dobutamine drip again 2. Status post acute on chronic systolic and diastolic congestive heart failure (CHF). Entresto on hold. hold diuresis tosemide and spirolactone for 2 days as per renal. Continue statin, aspirin. Cardiology consulted. Currently off of dobutamine. Continue beta blockers. 3. Status post Enterococcus faecalis bacteremia, possible colitis versus chronic cholecystitis with possible discitis. Appreciate surgery consultation, Dr. Vang; infectious disease consultation, Dr. Palumbo. EEG was done. Bone scan was done. Completed prolonged course of IV antibiotics with ampicillin. 4. Chronic back pain. CT of the lumbar spine appreciated. Currently symptoms improved. Orthopedics was on consult. Pain management was on consult. Continue current pain medication. 5. Chronic anemia, likely secondary to anemia of chronic disease. Fecal occult was positive. Patient was transfused during this admission. Eliquis is on hold due to fecal occult positive. Attempt to restart Eliquis has been made during this hospital course, but after a few days on Eliquis, the patient's anemia worsened. Subsequently, Eliquis was discontinued. 6. Chronic atrial fibrillation. Eliquis on hold due to anemia and fecal occult positive. Continue beta masood. Risks and benefits have been discussed. 7. Diabetes. Continue meantime insulin via protocol. Follow fingersticks. 8. Diarrhea. Resolved. 9. Coronary artery disease. Continue aspirin, beta blockers, statin, hold torsemide and spironolactone in light of elevated cr. Entresto stopped given worsen kidney function on it. Continue Isordil and hydralazine. 10. Hypertension. Continue medication management above. Adjust as needed. 11. Deep vein thrombosis (DVT) prophylaxis. Thromboembolism deterrents (TEDs) and sequential given patient did not tolerate anticoagulation. 12. Deconditioning. Not tolerating physical therapy. DISPOSITION: Hospice evaluation. 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 Currently DO NOT RESUSCITATE/DO NOT INTUBATE (DNR/DNI). The patient is severely deconditioned, not tolerating physical therapy. VS,Fishbone, I+O VS, Fishbone, I+O Laboratory Tests 06/18/18 06:54 Calcium Level 8.5 L Vital Signs Date Time Temp Pulse Resp B/P (MAP) Pulse Ox O2 Delivery O2 Flow Rate FiO2 06/18/18 10:37 20 06/18/18 10:35 98 133/79 06/18/18 06:00 96.3 100 Nasal Cannula 1.0 I&O- Last 24 Hours up to 6 AM 06/18/18 06:00 Intake Total 870 ml Output Total 100 ml Balance 770 ml DARY LUNDBERG MD Jun 18, 2018 15:19
--- NOTE | 2018-06-18 16:03 | IPN ---
DATE: 06/17/2018 SUBJECTIVE: The patient was seen and examined at the bedside today morning. I was asked to see the patient again after a few weeks. The patient is awake and alert. He was able to actually recognize me. His baseline creatinine had been fluctuating around 1.6 to 1.7. However, today morning, his creatinine was up to 2.2. The patient is nonoliguric. He is making around 700 to 800 mL of urine a day. OBJECTIVE: VITAL SIGNS: Temperature is 98.2 degrees Fahrenheit, blood pressure 157/92, pulse is 96, respiratory rate of 22, saturating 95% on nasal canula at 1 liter. Intake and output: Urine output recorded yesterday as 850 mL. There is no urine output recorded today. Weight in the bed scale is 74.7 kg, which is not reliable because there is a 6 kg difference from yesterday. PHYSICAL EXAMINATION: GENERAL: The patient is awake, alert, oriented times three, laying in bed in no apparent distress. HEAD AND NECK EXAM: Extraocular muscles intact. Pupils equally round and reactive to light. Mucous membranes are very dry. Neck is supple. There is no jugular venous distension (JVD). CARDIOVASCULAR: S1, S2 irregular rate. No edema of the bilateral lower extremities. RESPIRATORY: Chest has acute auscultation on the left side. There is acute breath sounds on the right base. ABDOMEN: Soft, obese. Positive bowel sounds. Nontender. GENITOURINARY (): Bladder is nonpalpable. MUSCULOSKELETAL: Chronic venous stasis changes of the bilateral lower extremities, otherwise no clubbing or cyanosis. CENTRAL NERVOUS SYSTEM: No focal deficit. Power is 5/5 in bilateral lower extremities. LABORATORY REVIEW: Complete blood count (CBC) showed a white blood count (WBC) of 5.6, hemoglobin is 10, platelets are 126. The basic metabolic panel (BMP) showed sodium 139, 4.3, chloride 101, bicarbonate 30, BUN 34, creatinine is 2.2, calcium is 8.4, magnesium is 1.8. CURRENT PATIENT MEDICATIONS: The patient's medications were all reviewed by me. He is on albuterol, Tylenol, guaifenesin, aspirin, Lipitor, calcitriol, Tums, Coreg 25 mg twice a day, Colace, Uloric 80 mg daily, iron tablet, Lasix 40 mg by mouth twice a day, heparin subcutaneous, hydralazine 25 mg every 8 hours, insulin sliding scale, isosorbide 20 mg by mouth three times a day, lidocaine patch, multivitamins, Zofran as needed, potassium chloride 40 mEq by mouth twice a day, spironolactone 25 mg by mouth twice a day and tramadol 50 mg by mouth four times a day. ASSESSMENT AND PLAN: 1. Acute kidney disease superimposed on chronic kidney disease stage III. The patient recently had cardiorenal syndrome that required IV Lasix and IV dobutamine infusion. However at this point, I do not see any signs of fluid overload at this point. The patient actually clinically looks dry. I am going to try to hold furosemide, spironolactone and potassium tablets for a few days. No need of dobutamine at this time. 2. Chronic combined systolic and diastolic congestive heart failure. The patient's volume status is optimize. Continue current dose of Coreg, hydralazine and isosorbide. Diuretics are being held at this point because of volume depletion and acute kidney disease. 3. Hypertension with chronic kidney disease and hypertensive heart disease. Blood pressure is controlled. Continue current dose of hydralazine, Coreg and isosorbide. Diuretics are being stopped. 4. Chronic gout secondary to chronic kidney disease. Continue current dose of Uloric 80 mg by mouth daily 5. Secondary hyperparathyroidism. Continue current dose of calcitriol 0.25 mg Tuesday, Tuesday, Tuesday.
[2018-06-18] MEDS: LIDOCAINE 5% (LIDODERM) PATCH TD SCH (21:00)
[2018-06-18] MEDS: ATORVASTATIN 20 MG TAB PO SCH (21:43)
[2018-06-18 22:00] VITALS: BP 100/66
[2018-06-19] MEDS: **hydrALAZINE** 10 MG TAB PO SCH (05:33)
[2018-06-19] MEDS: SODIUM CHLORIDE 0.9% INJ 10 ML SYR IV SCH ×2 (05:34→17:23)
[2018-06-19 05:49] LABS: HEMATOCRIT 28.6 % (42.0-52.0); MEAN CORPUSCULAR HGB CONC 31.5 g/dl (32.0-36.5); MEAN CORPUSCULAR VOLUME 82.7 fl (80.0-96.0); PLATELET COUNT, AUTOMATED 103 10^3/uL (150-450); RED BLOOD COUNT 3.46 10^6/uL (4.30-6.10); WHITE BLOOD COUNT 5.9 10^3/uL (4.0-10.0)
[2018-06-19 06:00] VITALS: BP 112/56
[2018-06-19 06:06] LABS: CALCIUM LEVEL 8.1 MG/DL (8.8-10.2); CREATININE FOR GFR 2.24 MG/DL (0.70-1.30); GLOMERULAR FILTRATION RATE 30.7 (>42); MAGNESIUM LEVEL 1.8 MG/DL (1.8-2.4); POTASSIUM SERUM 4.4 MEQ/L (3.5-5.1)
[2018-06-19] MEDS: **NOTE PATIENT COMMENT** MISC XX SCH (09:00)
[2018-06-19] MEDS: LANSOPRAZOLE SUSPENSION 30 MG/10 ML ORAL SYRINGE (FIRST-LANSOPRAZOLE) PO SCH (09:00)
[2018-06-19] MEDS: EUCERIN 120GM CREAM TOP SCH ×2 (09:00→20:51)
[2018-06-19] MEDS: MIRALAX *UNIT DOSE* 17GM PACKET PO SCH ×2 (09:00→20:51)
[2018-06-19] MEDS: MULTIVITAMIN/MINERALS LIQUID 15ML ORAL SYRINGE PO SCH (09:00)
[2018-06-19] MEDS: FERROUS SULFATE 300MG/5ML UDC LIQUID PO SCH (09:00)
[2018-06-19] MEDS: NYSTATIN 100,000 UNITS/GM TOPICAL PWD 15 GM TOP SCH ×2 (09:00→20:52)
[2018-06-19] MEDS: SENOKOT S TAB PO SCH ×2 (09:00→20:51)
[2018-06-19] MEDS: guaiFENesin ER 600 MG TAB PO SCH ×2 (09:00→20:51)
[2018-06-19] MEDS: LIDOCAINE 5% OINT 30 GM TOP SCH (09:00)
[2018-06-19] MEDS: ASPIRIN 81 MG CHEW TABLET PO SCH (09:55)
[2018-06-19] MEDS: CALCITRIOL 0.25 MCG CAP (S0169) PO SCH (09:55)
[2018-06-19] MEDS: FEBUXOSTAT 40 MG TABLET (ULORIC) PO SCH (09:55)
[2018-06-19] MEDS: traMADol 50 MG TAB PO SCH ×4 (09:56→20:54)
[2018-06-19] MEDS: ISOSORBIDE DIN. (ISORDIL) 30 MG TAB PO SCH (09:56)
[2018-06-19] MEDS: CARVedilol 12.5 MG TAB PO SCH (09:57)
[2018-06-19] MEDS: HumaLOG INSULIN (NovoLOG) PER UNIT SC SCH ×2 (09:58→12:11)
[2018-06-19] MEDS ORDERED: SCOPOLAMINE 1MG TRANSDERMAL PATCH TOP PRN (13:30)
[2018-06-19] MEDS ORDERED: LORazepam 1 MG TAB PO PRN (13:30)
[2018-06-19] MEDS ORDERED: MORPHINE 10MG/0.5ML ORAL CONCENTRATE SOLUTION U/D SL PRN (13:30)
[2018-06-19] MEDS ORDERED: HYOSCYAMINE SULFATE 0.125 MG SUBL TABLET PO PRN (13:30)
--- NOTE | 2018-06-19 19:18 | IPNPDOC ---
Text Note Date of Service The patient was seen on 06/19/18. NOTE Patient seen and examined. No acute events overnight. Currently tolerating medication. Denies any nausea, vomiting, abdominal pain. Denies any chest pain, palpitations. poor po. reported mild back pain PHYSICAL EXAMINATION: GENERAL: Patient alert, comfortable, in no acute distress. Frail. HEENT: Normocephalic, atraumatic. Moist mucous membranes. NECK: Supple. No jugular venous distention (JVD). CARDIAC: Regular, S1, S2. PULMONARY: Diminished breath sounds bilateral. Minimal rhonchi. ABDOMEN: Soft, nontender. Positive bowel sounds. EXTREMITIES: Trace edema bilateral lower extremities. venous stasis skin changes ASSESSMENT AND PLAN: This is a 72-year-old male patient with underlying medical history of atrial fibrillation, congestive heart failure (CHF) with diastolic a nd systolic dysfunction, ejection fraction (EF) of 35-40%, coronary artery disease, diabetes, chronic kidney disease stage III, gout, lumbar degenerative disc disease, spinal stenosis, radiculopathy, history of colon cancer, history of skin cancer, iron deficiency anemia, mitral insufficiency, dyslipidemia, initially presented with weakness, diarrhea, found to be having Enterococcus faecalis bacteremia possibly due to discitis. Hospital course complicated with severe deconditioning, cardiorenal syndrome requiring dobutamine drip twice and also complicated with poor oral intake. PROBLEMS: 1. Acute on chronic renal insufficiency. Baseline chronic kidney disease stage III, initial episode possibly secondary to medication, gentamicin, Entresto, bacteremia. Nephrology has been consulted. initial episode improved with hydration and discontinuation of offending agent. But subsequently two episode is associated with cardiorenal, improved with dobutamine drip and diuresis. Appreciate nephrology input. TREE DRILLER 2. Status post acute on chronic systolic and diastolic congestive heart failure (CHF). Entresto on hold. diuresis tosemide and spirolactone. Cardiology consulted. Currently off of dobutamine. TREE DRILLER 3. Status post Enterococcus faecalis bacteremia, possible colitis versus chronic cholecystitis with possible discitis. Appreciate surgery consultation, Dr. Vang; infectious disease consultation, Dr. Palumbo. EEG was done. Bone scan was done. Completed prolonged course of IV antibiotics with ampicillin. 4. Chronic back pain. CT of the lumbar spine appreciated. Currently symptoms improved. Orthopedics was on consult. Pain management was on consult. Continue current pain medication. 5. Chronic anemia, likely secondary to anemia of chronic disease. Fecal occult was positive. Patient was transfused during this admission. Eliquis is on hold due to fecal occult positive. Attempt to restart Eliquis has been made during this hospital course, but after a few days on Eliquis, the patient's anemia worsened. Subsequently, Eliquis was discontinued. Did not tolerate scope, TREE DRILLER currently 6. Chronic atrial fibrillation. Eliquis on hold due to anemia and fecal occult positive. Continue beta masood. Risks and benefits have been discussed. 7. Diabetes. TREE DRILLER 8. Diarrhea. Resolved. 9. Coronary artery disease. Continue aspirin, beta blockers, torsemide and spironolactone. Entresto stopped given worsen kidney function on it. 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 Hypertension. health club attendant 11. Deep vein thrombosis (DVT) prophylaxis. Thromboembolism deterrents (TEDs) and sequential given patient did not tolerate anticoagulation. 12. Deconditioning. Not tolerating physical therapy. DISPOSITION: Hospice evaluation. TREE DRILLER ACP time spent 30 min, d/w and patient agree with TREE DRILLER. MOLST form done VS,Walt, I+O VS, Walt, I+O Laboratory Tests 06/19/18 05:29 Red Blood Count 3.46 L, Mean Corpuscular Volume 82.7, Mean Corpuscular Hemoglobin 26.0 L, Mean Corpuscular Hemoglobin Concent 31.5 L, Red Cell Distribution Width 15.5 H, Calcium Level 8.1 L Vital Signs Date Time Temp Pulse Resp B/P (MAP) Pulse Ox O2 Delivery O2 Flow Rate FiO2 06/19/18 17:00 18 06/19/18 09:57 95 115/60 06/19/18 09:00 1.0 06/19/18 06:00 97.9 97 Nasal Cannula I&O- Last 24 Hours up to 6 AM 06/19/18 06:00 Intake Total 1100 ml Output Total 100 ml Balance 1000 ml DARY LUNDBERG MD Jun 19, 2018 19:18
[2018-06-19] MEDS: LIDOCAINE 5% (LIDODERM) PATCH TD SCH (20:51)
[2018-06-19] MEDS: CARVedilol 6.25 MG TAB PO SCH (20:53)
[2018-06-20] MEDS: SODIUM CHLORIDE 0.9% INJ 10 ML SYR IV SCH ×2 (05:38→16:44)
[2018-06-20] MEDS: FUROSEMIDE 40 MG TAB PO SCH ×2 (08:48→17:41)
[2018-06-20] MEDS: CARVedilol 6.25 MG TAB PO SCH ×2 (08:49→20:02)
[2018-06-20] MEDS: MULTIVITAMIN/MINERALS LIQUID 15ML ORAL SYRINGE PO SCH (08:50)
[2018-06-20] MEDS: LANSOPRAZOLE SUSPENSION 30 MG/10 ML ORAL SYRINGE (FIRST-LANSOPRAZOLE) PO SCH (08:50)
[2018-06-20] MEDS: SPIRONOLACTONE 25 MG TAB PO SCH ×2 (08:50→17:42)
[2018-06-20] MEDS: ASPIRIN 81 MG CHEW TABLET PO SCH (08:50)
[2018-06-20] MEDS: MIRALAX *UNIT DOSE* 17GM PACKET PO SCH ×2 (08:50→20:02)
[2018-06-20] MEDS: traMADol 50 MG TAB PO SCH ×4 (08:50→20:03)
[2018-06-20] MEDS: EUCERIN 120GM CREAM TOP SCH ×2 (08:51→20:04)
[2018-06-20] MEDS: SENOKOT S TAB PO SCH ×2 (08:51→20:03)
[2018-06-20] MEDS: LIDOCAINE 5% OINT 30 GM TOP SCH (08:51)
[2018-06-20] MEDS: guaiFENesin ER 600 MG TAB PO SCH ×2 (08:51→20:02)
[2018-06-20] MEDS: **NOTE PATIENT COMMENT** MISC XX SCH (08:52)
[2018-06-20] MEDS: NYSTATIN 100,000 UNITS/GM TOPICAL PWD 15 GM TOP SCH ×2 (08:52→20:04)
[2018-06-20] MEDS: FEBUXOSTAT 40 MG TABLET (ULORIC) PO SCH (08:56)
--- NOTE | 2018-06-20 09:21 | IPNPDOC ---
Date Seen The patient was seen on 06/20/18. Progress Note Patient seen and examined. No acute events overnight. Pt has significant difficulty ambulating. c/o pain in b/l LE and requesting meds. 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 PHYSICAL EXAMINATION: GENERAL: Patient alert, comfortable, in no acute distress. Frail. HEENT: Normocephalic, atraumatic. Moist mucous membranes. NECK: Supple. No jugular venous distention (JVD). CARDIAC: Regular, S1, S2. PULMONARY: Diminished breath sounds bilateral. Minimal rhonchi. ABDOMEN: Soft, nontender. Positive bowel sounds. EXTREMITIES: Trace edema bilateral lower extremities. venous stasis skin changes ASSESSMENT AND PLAN: This is a 72-year-old male patient with underlying medical history of atrial fibrillation, congestive heart failure (CHF) with diastolic and systolic dysfunction, ejection fraction (EF) of 35-40%, coronary artery disease, diabetes, chronic kidney disease stage III, gout, lumbar degenerative disc disease, spinal stenosis, radiculopathy, history of colon cancer, history of skin cancer, iron deficiency anemia, mitral insufficiency, dyslipidemia, initially presented with weakness, diarrhea, found to be having Enterococcus faecalis bacteremia possibly due to discitis. Hospital course complicated with severe deconditioning, cardiorenal syndrome requiring dobutamine drip twice and also complicated with poor oral intake. PROBLEMS: 1. Acute on chronic renal insufficiency. Baseline chronic kidney disease stage III, initial episode possibly secondary to medication, gentamicin, Entresto, bacteremia. Nephrology has been consulted. initial episode improved with hydration and discontinuation of offending agent. But subsequently two episode is associated with cardiorenal, improved with dobutamine drip and diuresis. Appreciate nephrology input. WARP DOFFER 2. Status post acute on chronic systolic and diastolic congestive heart failure (CHF). Entresto on hold. diuresis tosemide and spirolactone. Cardiology consulted. Currently off of dobutamine. WARP DOFFER 3. Status post Enterococcus faecalis bacteremia, possible colitis versus chronic cholecystitis with possible discitis. Appreciate surgery consultation, Dr. Vang; infectious disease consultation, Dr. Palmubo. EEG was done. Bone scan was done. Completed prolonged course of IV antibiotics with ampicillin. 4. Chronic back pain. CT of the lumbar spine appreciated. Currently symptoms improved. Orthopedics was on consult. Pain management was on consult. Continue current pain medication. 5. Chronic anemia, likely secondary to anemia of chronic disease. Fecal occult was positive. Patient was transfused during this admission. Eliquis is on hold due to fecal occult positive. Attempt to restart Eliquis has been made during this hospital course, but after a few days on Eliquis, the patient's anemia worsened. Subsequently, Eliquis was discontinued. Did not tolerate scope, WARP DOFFER currently 6. Chronic atrial fibrillation. Eliquis on hold due to anemia and fecal occult positive. Continue beta masood. Risks and benefits have been discussed. 7. Diabetes. WARP DOFFER 8. Diarrhea. Resolved. 9. Coronary artery disease. Continue aspirin, beta blockers, torsemide and spironolactone. Entresto stopped given worsen kidney function on it. 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 Hypertension. operations officer 11. Deep vein thrombosis (DVT) prophylaxis. Thromboembolism deterrents (TEDs) and sequential given patient did not tolerate anticoagulation. 12. Deconditioning. Not tolerating physical therapy. DISPOSITION: Hospice evaluation. WARP DOFFER ACP time spent 30 min, d/w and patient agree with WARP DOFFER. MOLST form done VS, I&O, 24H, Fishbone Vital Signs/I&O Vital Signs Date Time Temp Pulse Resp B/P (MAP) Pulse Ox O2 Delivery O2 Flow Rate FiO2 06/19/18 20:54 18 Nasal Cannula 1.0 06/19/18 20:53 89 123/65 06/19/18 06:00 97.9 97 I&O- Last 24 Hours up to 6 AM 06/20/18 06:00 Intake Total 360 ml Balance 360 ml Laboratory Data 24H LABS Laboratory Tests 2 06/19/18 11:28: Bedside Glucose (Misc Panel) 157H CARMEN WOO MD Jun 20, 2018 06:43
[2018-06-20] MEDS: LIDOCAINE 5% (LIDODERM) PATCH TD SCH (20:04)
--- NOTE | 2018-06-21 08:58 | IPNPDOC ---
Date Seen The patient was seen on 06/21/18. Progress Note SUBJECTIVE: DC PLANS ON TUESDAY. Patient seen and examined. No acute events overnight. Pt has significant difficulty ambulating. still c/o pain in b/l LE worse on the right toes and requesting meds. 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 PHYSICAL EXAMINATION: VITALS: PLS SEE BELOW GENERAL: Patient alert, comfortable, in no acute distress. Frail. HEENT: Normocephalic, atraumatic. Moist mucous membranes. NECK: Supple. No jugular venous distention (JVD). CARDIAC: Regular, S1, S2. PULMONARY: Diminished breath sounds bilateral. Minimal rhonchi. ABDOMEN: Soft, nontender. Positive bowel sounds. EXTREMITIES: Trace edema bilateral lower extremities. venous stasis skin changes ASSESSMENT AND PLAN: This is a 72-year-old male patient with underlying medical history of atrial fibrillation, congestive heart failure (CHF) with diastolic and systolic dysfunction, ejection fraction (EF) of 35-40%, coronary artery disease, diabetes, chronic kidney disease stage III, gout, lumbar degenerative disc disease, spinal stenosis, radiculopathy, history of colon cancer, history of skin cancer, iron deficiency anemia, mitral insufficiency, dyslipidemia, initially presented with weakness, diarrhea, found to be having Enterococcus faecalis bacteremia possibly due to discitis. Hospital course complicated with severe deconditioning, cardiorenal syndrome requiring dobutamine drip twice and also complicated with poor oral intake. PROBLEMS: 1. Acute on chronic renal insufficiency. Baseline chronic kidney disease stage III, initial episode possibly secondary to medication, gentamicin, Entresto, bacteremia. Nephrology has been consulted. initial episode improved with hydration and discontinuation of offending agent. But subsequently two episode is associated with cardiorenal, improved with dobutamine drip and diuresis. Appreciate nephrology input. PRESCHOOL ASSISTANT PRINCIPAL 2. Status post acute on chronic systolic and diastolic congestive heart failure (CHF). Entresto on hold. diuresis tosemide and spirolactone. Cardiology consulted. Currently off of dobutamine. PRESCHOOL ASSISTANT PRINCIPAL 3. Status post Enterococcus faecalis bacteremia, possible colitis versus chronic cholecystitis with possible discitis. Appreciate surgery consultation, Dr. Vang; infectious disease consultation, Dr. Palumbo. EEG was done. Bone scan was done. Completed prolonged course of IV antibiotics with ampicillin. 4. Chronic back pain. CT of the lumbar spine appreciated. Currently symptoms improved. Orthopedics was on consult. Pain management was on consult. Continue current pain medication. 5. Chronic anemia, likely secondary to anemia of chronic disease. Fecal occult was positive. Patient was transfused during this admission. Eliquis is on hold due to fecal occult positive. Attempt to restart Eliquis has been made during this hospital course, but after a few days on Eliquis, the patient's anemia worsened. Subsequently, Eliquis was discontinued. Did not tolerate scope, PRESCHOOL ASSISTANT PRINCIPAL currently 6. Chronic atrial fibrillation. Eliquis on hold due to anemia and fecal occult positive. Continue beta masood. Risks and benefits have been discussed. 7. Diabetes. PRESCHOOL ASSISTANT PRINCIPAL 8. Diarrhea. Resolved. 9. Coronary artery disease. Continue aspirin, beta blockers, torsemide and spironolactone. Entresto stopped given worsen kidney function on it. backup sawyer 10. Hypertension. backup sawyer 11. Deep vein thrombosis (DVT) prophylaxis. Thromboembolism deterrents (TEDs) and sequential given patient did not tolerate anticoagulation. 12. Deconditioning. Not tolerating physical therapy. DISPOSITION: dc plans for home with hospice on . VS, I&O, 24H, Fishbone Vital Signs/I&O Vital Signs Date Time Temp Pulse Resp B/P (MAP) Pulse Ox O2 Delivery O2 Flow Rate FiO2 06/20/18 20:03 16 06/20/18 20:02 83 100/56 06/20/18 20:00 1.0 06/19/18 20:54 Nasal Cannula 06/19/18 06:00 97.9 97 I&O- Last 24 Hours up to 6 AM 06/21/18 06:00 Intake Total 650 ml Output Total 100 ml Balance 550 ml CARMEN WOO MD Jun 21, 2018 06:47
[2018-06-21] MEDS: traMADol 50 MG TAB PO SCH ×4 (09:00→21:02)
[2018-06-21] MEDS: **NOTE PATIENT COMMENT** MISC XX SCH (09:00)
[2018-06-21] MEDS: LANSOPRAZOLE SUSPENSION 30 MG/10 ML ORAL SYRINGE (FIRST-LANSOPRAZOLE) PO SCH (09:00)
[2018-06-21] MEDS: ASPIRIN 81 MG CHEW TABLET PO SCH (09:00)
[2018-06-21] MEDS: EUCERIN 120GM CREAM TOP SCH ×2 (09:00→21:06)
[2018-06-21] MEDS: CARVedilol 6.25 MG TAB PO SCH ×2 (09:00→21:07)
[2018-06-21] MEDS: FEBUXOSTAT 40 MG TABLET (ULORIC) PO SCH (09:00)
[2018-06-21] MEDS: SPIRONOLACTONE 25 MG TAB PO SCH ×2 (09:00→16:41)
[2018-06-21] MEDS: guaiFENesin ER 600 MG TAB PO SCH ×2 (09:00→21:00)
[2018-06-21] MEDS: FUROSEMIDE 40 MG TAB PO SCH ×2 (09:00→16:41)
[2018-06-21] MEDS: MULTIVITAMIN/MINERALS LIQUID 15ML ORAL SYRINGE PO SCH (09:00)
[2018-06-21] MEDS: MIRALAX *UNIT DOSE* 17GM PACKET PO SCH ×2 (09:00→21:00)
[2018-06-21] MEDS: LIDOCAINE 5% OINT 30 GM TOP SCH (09:00)
[2018-06-21] MEDS: CALCITRIOL 0.25 MCG CAP (S0169) PO SCH (09:00)
[2018-06-21] MEDS: SENOKOT S TAB PO SCH ×2 (09:00→21:00)
[2018-06-21] MEDS: NYSTATIN 100,000 UNITS/GM TOPICAL PWD 15 GM TOP SCH ×2 (09:00→21:07)
[2018-06-21] MEDS ORDERED: PEG1POW PO (09:54)
[2018-06-21] MEDS ORDERED: HYOS125TA PO ×2 (09:54→09:55)
[2018-06-21] MEDS ORDERED: ALDA25TA2 PO (09:54)
[2018-06-21] MEDS ORDERED: ONDA4TAB6 PO (09:54)
[2018-06-21] MEDS ORDERED: NYAM10003 TOP (09:54)
[2018-06-21] MEDS ORDERED: MUCI600T37 PO (09:54)
[2018-06-21] MEDS ORDERED: EUCE12CR TOP (09:54)
[2018-06-21] MEDS ORDERED: FIRS3SUS PO (09:54)
[2018-06-21] MEDS ORDERED: FURO40TA2 PO (09:54)
[2018-06-21] MEDS ORDERED: CARV6.25 PO (09:54)
[2018-06-21] MEDS ORDERED: LORA0.5T11 PO (09:55)
[2018-06-21] MEDS ORDERED: MORP20SO3 PO (09:55)
[2018-06-21] MEDS: LIDOCAINE 5% (LIDODERM) PATCH TD SCH (21:00)
[2018-06-22] MEDS: FUROSEMIDE 40 MG TAB PO SCH (08:21)
[2018-06-22] MEDS: SPIRONOLACTONE 25 MG TAB PO SCH (08:21)
[2018-06-22] MEDS: traMADol 50 MG TAB PO SCH (08:22)
[2018-06-22] MEDS: ASPIRIN 81 MG CHEW TABLET PO SCH (08:22)
[2018-06-22 08:23] VITALS: BP 143/74
[2018-06-22] MEDS: CARVedilol 6.25 MG TAB PO SCH (08:23)
[2018-06-22] MEDS: MULTIVITAMIN/MINERALS LIQUID 15ML ORAL SYRINGE PO SCH (08:23)
[2018-06-22] MEDS: FEBUXOSTAT 40 MG TABLET (ULORIC) PO SCH (08:23)
[2018-06-22] MEDS: MIRALAX *UNIT DOSE* 17GM PACKET PO SCH (08:24)
[2018-06-22] MEDS: EUCERIN 120GM CREAM TOP SCH (08:24)
[2018-06-22] MEDS: LANSOPRAZOLE SUSPENSION 30 MG/10 ML ORAL SYRINGE (FIRST-LANSOPRAZOLE) PO SCH (08:24)
[2018-06-22] MEDS: SENOKOT S TAB PO SCH (08:24)
[2018-06-22] MEDS: guaiFENesin ER 600 MG TAB PO SCH (08:24)
[2018-06-22] MEDS: **NOTE PATIENT COMMENT** MISC XX SCH (08:25)
[2018-06-22] MEDS: NYSTATIN 100,000 UNITS/GM TOPICAL PWD 15 GM TOP SCH (08:25)
[2018-06-22] MEDS: LIDOCAINE 5% OINT 30 GM TOP SCH (08:25)
[2018-06-22] MEDS ORDERED: CARV6.25 PO (10:55)
[2018-06-22] MEDS ORDERED: ALDA25TA2 PO (10:55)
[2018-06-22] MEDS ORDERED: FURO40TA2 PO (10:57)
[2018-06-22] MEDS ORDERED: TRAM50TA2 PO (10:58)
--- NOTE | 2018-06-22 11:40 | DS.PDOC ---
Discharge Summary General Date of Admission Apr 14, 2018 at 14:19 Date of Discharge 06/22/18 Discharge Summary DISCHARGED HOME WITH HOSPICE. DNR/DNI. COMFORT MEASURES ONLY CONSULTANTS: HUMAN FACTORS SCIENTIST: DR. LEWIS, DR. NAIR GASTROENTEREOLOGIST: DR. BROWNLEE GENERAL SURGERY: DR. VANG NEPHROLOGY: DR. PANDA PAIN MANAGEMENT : DR MORA ORTHOPEDIC SURGERY: DR. RADFORD INFECTIOUS DISEASE: DR. PALUMBO PSYCHIATRIST: DR. BYERS PROCEDURES: 04/25/18, 05/03/18: PICC LINE DISCHARGE DIAGNOSES: ACUTE ON CHRONIC DIASTOLIC AND SYSTOLIC CHF EXACERBATION CARDIORENAL SYNDROME E FAECALIS BACTEREMIA DUE TO PROBABLE DISCIITIS ACUTE ON CKD3 COMPLICATED BY CARDIORENAL SYNDROME OTHERWISE SPECIFIED DEPRESSIVE DISORDER MILD COGNITIVE IMPAIRMENT CAD HTN DM2 GOUT STENOSIS HISTORY OF COLON CANCER HISTORY OF SKIN CANCER MITRAL VALVE INSUFFICIENCY IRON DEFICIENCY ANEMIA HYPERLIPIDEMIA HIATAL HERNIA DISCHARGE MEDICATIONS: PLS SEE BELOW HISTORY OF PRESENT ILLNESS: Mr. Dixon is a 72-year-old male who presents to [facility] emergency department with weakness and diarrhea. Past medical history significant for chronic atrial fibrillation, diastolic and systolic congestive heart failure with an ejection fraction 35-40%, coronary artery disease, hypertension, diabetes mellitus, chronic kidney disease stage III, gout, lumbar degenerative disc disease with stenosis/radiculopathy, history of colon cancer, history of skin cancer, mitral valve calcification/insufficiency, history of iron deficiency anemia, hyperlipidemia. Patient states that for the last couple of days he has been progressively getting weaker to the point where he is now unable to stand. At baseline he uses a walker. He denies numbness and tingling in his lower extremities. There is no swelling. He states he has no back pain or neck pain. He has been eating and drinking without difficulty and notes no changes to his diet. He is not nauseous, vomiting, has abdominal pain however, patient does admit to watery diarrhea for the last 5 days. He is not febrile. He denies night sweats or chills. Patient was recently seen by his local press officer on 04/06/2018 at which time he had also admitted to diarrhea. His started on cholestyramine. His thought that his diarrhea was secondary to his gallbladder disease. At time of his cardiology appointment patient was encouraged to maintain a salt and fluid restriction. His advised to resume his torsemide 20 mg by mouth daily and to increase to 20 mg twice daily she does weight increase by 2 more pounds. No changes were made to any of his other medications. However, patient states that in the coming days cardiology had been in contact with patient and advised him to discontinue his diuretics. He was further advised to present to the emergency department for further evaluation.Emergency department evaluation revealed atrial fibrillation on EKG. There is no white count. There is a slight increase in his creatinine to 1.76. Chest x-ray reveals poorly congestion; however this does not appear to be significantly new finding.Hospitalist service was consulted and patient was admitted for further medical management. HOSPITAL COURSE: Acute on chronic renal insufficiency. Baseline chronic kidney disease stage III/ Cardiorenal syndrome initial episode possibly secondary to medication, gentamicin, Entresto, bacteremia. Nephrology has been consulted. initial episode improved with hydration and discontinuation of offending agent. But subsequently two episode is associated with cardiorenal, improved with dobutamine drip and diuresis. Appreciate nephrology input. 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 Entresto on hold. diuresis tosemide and spirolactone. Cardiology consulted. Currently off of dobutamine. SEMICONDUCTOR DEVELOPMENT TECHNICIAN. AICD to be deactivated. Status post Enterococcus faecalis bacteremia, with possible discitis. Appreciate surgery consultation, Dr. Vang; infectious disease consultation, Dr. Palumbo. EEG was done. Bone scan was done. Completed prolonged course of IV antibiotics with ampicillin. Chronic back pain. CT of the lumbar spine appreciated. Currently symptoms improved. Orthopedics was on consult. Pain management was on consult. Continue current pain medication. Chronic anemia, likely secondary to anemia of chronic disease. Fecal occult was positive. Patient was transfused during this admission. Eliquis is on hold due to fecal occult positive. Attempt to restart Eliquis has been made during this hospital course, but after a few days on Eliquis, the patient's anemia worsened. Subsequently, Eliquis was discontinued. Did not tolerate scope, SEMICONDUCTOR DEVELOPMENT TECHNICIAN currently Chronic atrial fibrillation. Eliquis on hold due to anemia and fecal occult positive. Continue beta masood. Risks and benefits have been discussed. Diabetes. SEMICONDUCTOR DEVELOPMENT TECHNICIAN Diarrhea. Resolved. Coronary artery disease. Continue aspirin, beta blockers, torsemide and spironolactone. Entresto stopped given worsen kidney function on it. community center coordinator Hypertension. community center coordinator Deep vein thrombosis (DVT) prophylaxis. Thromboembolism deterrents (TEDs) and sequential given patient did not tolerate anticoagulation. Deconditioning. Not tolerating physical therapy. ALLERGIES: Please see below. PHYSICAL EXAMINATION ON DISCHARGE: VITAL SIGNS: Please see below. GENERAL: Patient alert, comfortable, in no acute distress. Frail. HEENT: Normocephalic, atraumatic. Moist mucous membranes. NECK: Supple. No jugular venous distention (JVD). CARDIAC: Regular, S1, S2. PULMONARY: Diminished breath sounds bilateral. Minimal rhonchi. ABDOMEN: Soft, nontender. Positive bowel sounds. EXTREMITIES: Trace edema bilateral lower extremities. venous stasis skin changes LABORATORY DATA: Please see below. IMAGING:PLS SEE BELOW HIDA SCAN: Following the intravenous administration of 6.5 mCi of technetium 99m mebrofenin, multiple images of the right upper quadrant are performed up to 3 hours post injection. Homogeneous radiotracer activity is seen on initial images. There is excretion to the biliary system with biliary to bowel transit seen at 15 to 20 minutes post injection. The gallbladder is not visualized up to 3 hours post injection. IMPRESSION: Nonfilling of the gallbladder up to 3 hours post injection. This could indicate acute or chronic cholecystitis. Electronically Signed by Deion Cramer MD 04/19/2018 04:32 P Clinical: Abdominal pain with history of cholecystitis. Technique: Real time cramer scale ultrasound examination using curved array transducer. Findings: Liver and visualized pancreas are normal in contour, size, echogenicity without focal hepatic or pancreatic lesions identified. The gallbladder is poorly evaluated due to technical factors but multiple gallstones are identified and a small amount of pericholecystic fluid as well as minimal wall thickening cannot be excluded. Sonographic Orta's sign was elicited during examination. The common bile duct is upper limits of normal at 7 mm. Right kidney is normal in reniform shape with increased central sinus fat consistent with age-related changes and no evidence for hydronephrosis. Right kidney measures 13.4 x 4.9 x 5.6 cm. No ascites. Incidental moderate right pleural effusion. Impression: 1. Examination is limited but findings are highly suspicious for acute cholecystitis. 2. Small to moderate right pleural effusion. Electronically Signed by Amandeep Donnelly MD 04/19/2018 09:07 A Clinical: Acute on chronic renal failure. Technique: Real time cramer scale ultrasound examination using curved array transducer. Findings: The bilateral kidneys are normal in contour, size, echogenicity, and reniform shape without hydronephrosis, nephrolithiasis, cystic or renal mass lesion. Increased central sinus fat is consistent with age-related change. Right kidney measures 13.2 x 5.5 x 4.7 cm and a minuscule amount of perinephric fluid cannot be excluded. Left kidney measures 13.0 x 5.0 x 5.5 cm without perinephric fluid. The bladder demonstrates mild bladder wall thickening and trabeculations consistent with chronic changes possibly related to chronic outlet obstruction. Impression: Chronic medical renal disease. No hydronephrosis. A minuscule amount of right perinephric fluid cannot be excluded. Bladder findings suggest chronic outlet obstruction. Electronically Signed by Amandeep Donnelly MD 04/21/2018 11:53 A Clinical: Left lower quadrant pain. Technique: Axial images from the lung bases to the pubic symphysis using oral contrast material with coronal and sagittal re-formations. Comparison: 04/19/2018. Findings: Evaluation of the enteric system demonstrates improving sigmoid colitis as compared to prior examinations with decreased mural thickening. A small amount of fluid and stranding is identified in the left carrol pelvis. There is no evidence for bowel obstruction or new acute process. Liver, spleen, pancreas, bilateral adrenal glands and kidneys are relatively normal / stable. Cholelithiasis noted without acute cholecystitis. Pelvis demonstrates Hampton catheter in collapsed bladder and mildly prominent prostate gland measuring up to approximately 5 cm transverse diameter. Small fat containing inguinal hernias noted. No ascites. No free air. No adenopathy. Musculoskeletal structures demonstrate degenerative changes without focal osseous abnormality. Moderate right and small left pleural effusions with passive atelectasis and findings to suggest cardiomegaly and mild pulmonary vascular congestion are similar to prior examination. Impression: 1. Improved sigmoid colitis. No new acute enteric process appreciated. 2. Chronic stable changes including cholelithiasis without acute cholecystitis. 3. No ascites. No adenopathy. No free air. 4. Pleural effusions with bibasilar passive atelectasis and pulmonary vascular congestion. Electronically Signed by Amandeep Donnelly MD 04/23/2018 01:[address] THORACIC SPINE WITHOUT CONTRAST: HISTORY: Lumbar pain. The thoracic spine is visualized from T1 to T11. There is no acute fracture or subluxation. A disc bulge is present at the T10-11 level. There is minimal narrowing of the spinal canal. The T10 neural foramina are patent. There is no other definite disc bulge or herniation. The remaining neural foramina are patent. There is loss of height of several mid and lower thoracic intervertebral discs. Anterior osteophytes are present throughout the thoracic spine. Parenchymal density is present in the right lung, consistent with atelectasis or infiltrate. Bilateral pleural effusions are present. IMPRESSION: 1. Degenerative change as described above. 2. Right lower lobe atelectasis or infiltrate and bilateral pleural effusions. Electronically Signed by Eddy Tong MD 04/27/2018 09:54 A DD: Eddy Tong MD 04/26/[address] LUMBAR SPINE WITHOUT CONTRAST: HISTORY: Back pain. COMPARISON: 04/17/2018. Disc bulges are present at the T11-12 and T12-L1 levels. There is minimal thecal sac compression. The neural foramina are patent. A diffuse disc bulge is present at the L1-2 level. There is minimal compression of the thecal sac. The L1 nerves exit the neural foramina without compression. A diffuse disc bulge is present at the L2-3 level. There is hypertrophy of the ligamenta flava and posterior articulating facets. These findings produce mild central canal stenosis. The L2 nerves exit the neural foramina without compression. A diffuse disc bulge is present at the L3-4 level. There is hypertrophy of the ligamenta flava and posterior articulating facets. These findings produce moderate central canal stenosis. The L3 nerves exit the neural foramina without compression. A diffuse disc bulge is present at the L4-5 level. There is hypertrophy of the ligamenta flava and posterior articulating facets. These findings produce moderate central canal stenosis. There is compression of the right L4 nerve in the neural foramen. The left L4 nerve exits the neural foramen without compression. A diffuse disc bulge is present at the L5-S1 level. There is minimal compression of the thecal sac. There is hypertrophy of the posterior articulating facets. There is compression of the L5 nerves in the neural foramina. The lumbar intervertebral discs are decreased in height. Vacuum phenomenon is present at the L5-S1 level. These findings are consistent with disc degeneration. A 1.4 cm nodule is present in the left adrenal gland. IMPRESSION: 1. Diffuse disc bulges at the L1-2 and L5-S1 levels with minimal thecal sac compression. There is compression of the L5 nerves in the neural foramina. 2. Mild central canal stenosis at the L2-3 level secondary to disc bulge, ligamentous and facet hypertrophy. 3. Moderate central canal stenosis at the L3-4 and L4-5 levels secondary to disc bulge, ligamentous, and facet hypertrophy. There is compression of the right L4 nerve in the neural foramen. There is no change compared to the previous study. Electronically Signed by Eddy Tong MD 04/26/2018 10:02 A Three-phase bone scan of the thoracic and lumbar spine and chest region. History: Thoracic and lumbar pain. Question discitis. Technique: 22.0 mCi technetium 99m MDP is injected and standard three-phase imaging was acquired. Findings: Anterior and posterior flow study are unremarkable. Blood pool images show no focal area of increased uptake in the thoracic or lumbar spine region to suggest inflammatory focus. Delayed scan images show normal distribution of skeletal tracer with uptake in bilateral kidneys. There is mildly increased uptake on either side of the L1-2 disc, which may reflect degenerative disc disease. CT study from yesterday in the lumbar spine showed degenerative disc disease at each lumbar and lower thoracic level. There is no other area of increased uptake on today's bone scan images. There is no evidence to suggest metastatic disease. No other abnormality. Impression: Minimally increased uptake on either side of the L1-2 disc consistent with degenerative disc changes. No hyperemia or abnormal flow. Otherwise negative three-phase bone scan. CT of the chest without IV contrast: The studies to evaluate increased density inferiorly in the right lung on the portable chest earlier today. There is a moderate right pleural effusion. There is compression atelectasis of the adjacent right lung. There is a small left pleural effusion with compression atelectasis of the adjacent left lung. These pleural effusions are unchanged in size from a CT of the abdomen dated 04/23/2018. There are no comparison chest CT studies. There are is an 18 mm nodule posteriorly in the upper lobe. No other lung masses or nodules are identified. The unenhanced thoracic aorta is unremarkable except for occasional calcified atheroma. Cardiac size is enlarged. There is no pericardial effusion. There are sternotomy wires and pacemaker.. Impression: There is a moderate pleural effusion on the right and a small pleural effusion on the left with compression atelectasis of the adjacent lung bilaterally. The pleural effusions are unchanged from the abdomen CT of 04/23/2018. Cardiomegaly and pacemaker. 18 mm right upper lobe lung nodule. Electronically Signed by Deion Tan MD 04/30/2018 12:04 P Esophagram The procedure was performed under the direct supervision of Dr. Mcbride. The images were reviewed with Dr. Mcbride. A single view PA chest x-ray is submitted as a director safety film. The patient is status post median sternotomy and CABG. There is a pacemaker in place as well as a right-sided PICC line there is cardiomegaly. There is hazy opacity at the right lung base which may represent pleural fluid. Exam is limited due to patient condition and mobility . Liquid barium was given in the supine oblique positions. The oral and pharyngeal stages of deglutition are unremarkable. Esophageal transport is prompt and efficient and there is no esophagitis, stricture or mucosal ring. There is a hiatal hernia. Gastroesophageal reflux is not demonstrated on this examination. Impression: Exam is limited due to patient condition and mobility. There is a hiatal hernia. Otherwise single contrast esophagram within normal limits. 1.4 minutes of fluoro time was utilized for this procedure. Reviewed by TOMASA Chanel 05/31/2018 04:41 P Electronically Signed by Rosalio Mcbride MD 05/31/2018 06:26 P TIME SPENT ON DISCHARGE: Greater than 30 minutes. Vital Signs/I&Os Vital Signs Date Time Temp Pulse Resp B/P (MAP) Pulse Ox O2 Delivery O2 Flow Rate FiO2 06/22/18 09:00 1.0 06/22/18 08:23 72 143/74 06/22/18 08:22 18 06/21/18 21:02 Nasal Cannula 06/19/18 06:00 97.9 97 I&O- Last 24 Hours up to 6 AM 06/22/18 06:00 Intake Total 50 ml Output Total 0 ml Balance 50 ml Discharge Medications Scheduled Aspirin (Ecotrin Low Strength) 81 Mg Tab, 81 MG PO DAILY, (Reported) Atorvastatin Calcium (Atorvastatin Calcium) 40 Mg Tab, 40 MG PO DAILY, (Reported) Calcitriol (Rocaltrol) 0.25 Mcg Cap, 0.25 MCG PO 3XW, (Reported) MON,WED,FRI Carvedilol (Carvedilol) 6.25 Mg Tab, 6.25 MG PO BID, (Reported) Carvedilol (Carvedilol) 6.25 Mg Tab, 6.25 MG PO BID Febuxostat (Uloric) 80 Mg Tab, 80 MG PO DAILY, (Reported) Furosemide (Furosemide) 40 Mg Tab, 40 MG PO BID@,17 Insulin Aspart (Novolog Flexpen) 100 Unit/Ml Inj, 0 SC ACHS, (Reported) PER SLIDING SCALE Multivitamins *[facility] STOCKED* (Thera M Plus *[facility] STOCK[facility]*) 1 Tab Tab, 1 TAB PO DAILY, (Reported) Spironolactone (Aldactone) 25 Mg Tab, 25 MG PO BID@, Tramadol HCl (Tramadol HCl) 50 Mg Tab, 50 MG PO QID Scheduled PRN (Voltaren) 1 % Gel, 1 DOSE TOP QID PRN for PAIN, (Reported) APPLY TO PAINFUL AREAS Acetaminophen (Tylenol) 325 Mg Tab, 650 MG PO Q4H PRN for PAIN, (Reported) Hyoscyamine Sulfate (Hyoscyamine Sulfate) 0.125 Mg Sub, 0.125 MG PO Q4HP PRN for TERMINAL SECRETIONS Use sublingually if unable to swallow Lorazepam (Lorazepam) 0.5 Mg Tab, 0.5 MG PO Q4HP PRN for ANXIETY/AGITATION Use sublingually if unable to swallow Morphine Sulfate (Morphine Sulfate) 100 Mg/5 Ml Harriett, 0.25-1 ML PO Q2H PRN for PAIN OR DYSPNEA Use sublingually if unable to swallow Nitroglycerin (Nitrostat) 0.4 Mg Subl, 0.4 MG SL NITRO PRN for CHEST PAIN, (Reported) Allergies Coded Allergies: Sulfa Antibiotics (Verified Allergy, Intermediate, HIVES, DIZZINESS, 04/14/18) Oxycodone (Verified Adverse Reaction, Mild, Hallucinates, 04/14/18) CARMEN WOO MD Jun 22, 2018 11:18
== END 2018-06-22 11:22 | disposition hospice, home (50) | DRG 347 ==
LOC: M ED 10:26 → EDBD 10:26 → M ED INP 14:19 → M PCU 18:36 → M ICU 04-19 15:59 → M PCU 04-20 17:27 → M MSPAV 05-12 16:00 → M PCU 05-23 10:49 → M MSPAV 06-08 14:40
PROVIDERS: ADMIT Hospitalist; ATTEND General Practice
PROC: 30233N1 Transfusion of Nonautologous Red Blood Cells into Peripheral Vein, Percutaneous Approach (ICD-10-PCS; principal; 2018-04-25)
PROC: 02HV33Z Insertion of Infusion Device into Superior Vena Cava, Percutaneous Approach (ICD-10-PCS; 2018-04-26)
PROC: 02HV33Z Insertion of Infusion Device into Superior Vena Cava, Percutaneous Approach (ICD-10-PCS; 2018-05-03)
DX: M51.26 Other intervertebral disc displacement, lumbar region (principal); J81.0 Acute pulmonary edema; N17.9 Acute kidney failure, unspecified; I50.43 Acute on chronic combined systolic (congestive) and diastolic (congestive) heart failure; L89.152 Pressure ulcer of sacral region, stage 2; R78.81 Bacteremia; E87.0 Hyperosmolality and hypernatremia; I48.2 Chronic atrial fibrillation; I13.0 Hypertensive heart and chronic kidney disease with heart failure and stage 1 through stage 4 chronic kidney disease, or unspecified chronic kidney disease; E87.70 Fluid overload, unspecified; E87.5 Hyperkalemia; K92.2 Gastrointestinal hemorrhage, unspecified; L97.911 Non-pressure chronic ulcer of unspecified part of right lower leg limited to breakdown of skin; L97.921 Non-pressure chronic ulcer of unspecified part of left lower leg limited to breakdown of skin; D62 Acute posthemorrhagic anemia; E86.0 Dehydration; I08.0 Rheumatic disorders of both mitral and aortic valves; M10.30 Gout due to renal impairment, unspecified site; I83.009 Varicose veins of unspecified lower extremity with ulcer of unspecified site; N25.81 Secondary hyperparathyroidism of renal origin; R13.10 Dysphagia, unspecified; E11.9 Type 2 diabetes mellitus without complications; N18.3 Chronic kidney disease, stage 3 (moderate); M46.46 Discitis, unspecified, lumbar region; D50.9 Iron deficiency anemia, unspecified; E78.5 Hyperlipidemia, unspecified; I25.10 Atherosclerotic heart disease of native coronary artery without angina pectoris; F32.9 Major depressive disorder, single episode, unspecified; Z85.038 Personal history of other malignant neoplasm of large intestine; Z85.828 Personal history of other malignant neoplasm of skin; Z51.5 Encounter for palliative care; K52.9 Noninfective gastroenteritis and colitis, unspecified; Z79.82 Long term (current) use of aspirin; Z79.899 Other long term (current) drug therapy; Z79.4 Long term (current) use of insulin; Z88.2 Allergy status to sulfonamides; Z88.5 Allergy status to narcotic agent; Z95.1 Presence of aortocoronary bypass graft; Z95.0 Presence of cardiac pacemaker; Z87.891 Personal history of nicotine dependence; I25.2 Old myocardial infarction; Z95.2 Presence of prosthetic heart valve; K80.20 Calculus of gallbladder without cholecystitis without obstruction; E87.6 Hypokalemia; Z66 Do not resuscitate; E66.9 Obesity, unspecified; R33.9 Retention of urine, unspecified